=== PATIENT | female | born 1980 | race Caucasian/White ===

== ENCOUNTER 2017-03-08 23:40 | Emergency (ER) | payer MEDICARE, OTHER ==
[2017-03-08 23:49] VITALS: RESP 18
--- NOTE | 2017-03-09 00:34 | XR ---
ADDENDUM - Added by Veirto Méndez MD on 03/09/2017 12:35 AM (-07:00) COMPARISON: 02/01/2015 EXAM: XR Left Ankle Complete, 3 or More Views CLINICAL HISTORY: Reason: Pain TECHNIQUE: Frontal, lateral and oblique views of the left ankle. COMPARISON: No relevant prior studies available. FINDINGS: Bones/joints: No acute fracture or malalignment. Plantar calcaneal osteophyte. Soft tissues: Diffuse soft tissue edema. IMPRESSION: No acute fracture or malalignment.
--- NOTE | 2017-03-09 00:35 | XR ---
EXAM: XR Left Foot Complete, 3 or More Views CLINICAL HISTORY: Reason: Pain TECHNIQUE: Frontal, lateral and oblique views of the left foot. COMPARISON: No relevant prior studies available. FINDINGS: Bones/joints: No acute fracture or malalignment. Plantar calcaneal osteophyte. Soft tissues: Unremarkable. No radiopaque foreign body. IMPRESSION: No acute fracture or malalignment.
--- NOTE | 2017-03-09 00:47 | US ---
EXAM: US Duplex Left Lower Extremity Veins CLINICAL HISTORY: Left lower extremity edema TECHNIQUE: Real-time ultrasound scan of the veins of the left lower extremity with color Doppler flow, spectral waveform analysis and compression. COMPARISON: No relevant prior studies available. FINDINGS: Deep veins: Unremarkable. Normal compression is demonstrated from the common femoral to the popliteal vein. There is normal response to augmentation. Superficial veins: Unremarkable as visualized. Soft tissues: No acute findings. IMPRESSION: No evidence of deep venous thrombosis in the left lower extremity.
[2017-03-09 01:09] VITALS: BP 115/55; PULSE 76; TEMP 98.2
--- NOTE | 2017-03-09 01:30 | ED ---
Lower Extremity Injury HPI - General Chief Complaint: Extremity Injury, Lower Stated Complaint: foot pain Time Seen by Provider: 03/08/17 23:59 Source: patient, RN notes reviewed, old records reviewed Mode of arrival: wheelchair Limitations: no limitations - History of Present Illness Initial Comments: This is 36 year old female with CC of left foot swelling. She denies any injury. She reports that she has no history of blood clots, she is a smoker. Denies fever, chills, redness to the leg. She reports she is sedentary. Denies any peripheral paresthesias. - Related Data Home Medications Medication Instructions Recorded Confirmed Ibuprofen [Motrin] 800 mg PO Q8H PRN 08/05/16 08/05/16 Previous Rx's Medication Instructions Recorded Ibuprofen [Motrin] 600 mg PO Q8HR PRN #20 tab 03/09/17 Allergies Allergy/AdvReac Type Severity Reaction Status Date / Time Iodinated Contrast Media - Allergy Rash/Hives Verified 03/08/17 23:49 Oral and [Iodinated Contrast Media - IV Dye] iodine Allergy Rash/Hives Verified 03/08/17 23:49 Iodine and Iodide Containing Allergy Rash/Hives Verified 03/08/17 23:49 Produc bupropion HCl AdvReac Unknown THOUGHTS Verified 03/08/17 23:49 [From Wellbutrin] OF KILLING SOMEONE hydromorphone HCl AdvReac Diarrhea Verified 03/08/17 23:49 [From Dilaudid] propoxyphene napsylate AdvReac Nausea & Verified 03/08/17 23:49 [From Darvocet-N] Vomiting steroids Allergy Rash/Hives Uncoded 03/08/17 23:49 Review of Systems ROS Statement: Those systems with pertinent positive or pertinent negative responses have been documented in the HPI. ROS Other: All systems not noted in ROS Statement are negative. Past Medical History Past Medical History: Asthma, Seizure Disorder Additional Past Medical History / Comment(s): kidney infections, chronic back pain , last seizure 1 week ago., migraines. History of Any Multi-Drug Resistant Organisms: MRSA Date of last positivie culture/infection: 1999,2013 MDRO Source:: right leg Past Surgical History: Section, Cholecystectomy, Tubal Ligation Additional Past Surgical History / Comment(s): ear surgerys (x15 left ear & 15 right ear), x2 Additional Past Anesthesia/Blood Transfusion Reaction / Comment(s): PT STATES DIFFICULTY WAKING UP. PTS FATHER ALSO HAS DIFFICULTY WAKING UP. Past Psychological History: Anxiety Smoking Status: Never smoker Past Alcohol Use History: None Reported Past Drug Use History: None Reported - Past Family History Mother Family Medical History: Cancer Additional Family Medical History / Comment(s): KIDNEY CANCER Father Family Medical History: CVA/TIA, Myocardial Infarction ([place]) General Exam - General Exam Comments Initial Comments: Well appearing 36 year old female, patient is morbidly obese. Limitations: no limitations General appearance: alert, in no apparent distress Head exam: Present: atraumatic, normocephalic, normal inspection Eye exam: Present: normal appearance, PERRL, EOMI. Absent: scleral icterus, conjunctival injection, periorbital swelling ENT exam: Present: normal exam, mucous membranes moist Neck exam: Present: normal inspection. Absent: tenderness, meningismus, lymphadenopathy Respiratory exam: Present: normal lung sounds bilaterally. Absent: respiratory distress, wheezes, rales, rhonchi, stridor Cardiovascular Exam: Present: regular rate, normal rhythm, normal heart sounds. Absent: systolic murmur, diastolic murmur, rubs, gallop, clicks GI/Abdominal exam: Present: soft, normal bowel sounds. Absent: distended, tenderness, guarding, rebound, rigid Extremities exam: Present: normal inspection, full ROM, normal capillary refill. Absent: tenderness, pedal edema, joint swelling, calf tenderness Back exam: Present: normal inspection Neurological exam: Present: alert, oriented X3, CN II-XII intact Psychiatric exam: Present: normal affect, normal mood Skin exam: Present: warm, dry, intact, normal color. Absent: rash Course Vital Signs 03/08/17 03/09/17 23:46 01:08 Temperature 97.1 F L 98.2 F Pulse Rate 81 76 Respiratory 18 18 Rate Blood Pressure 132/73 115/55 O2 Sat by Pulse 100 99 Oximetry Medical Decision Making - Medical Decision Making This is 36 year old female with CC of left foot swelling. She denies any injury. She reports that she has no history of blood clots, she is a smoker. Denies fever, chills, redness to the leg. She reports she is sedentary. Denies any peripheral paresthesias. Doppler US negative for blood clots, Xrays are negative. discussed using an EVGENY wrap and elevating extremity. Patient agrees to treatment plan and will comply. - Radiology Data Radiology results: report reviewed Doppler US negative for acute process. PAtient xrays are negative. Disposition Clinical Impression: Foot swelling, Left ankle pain Disposition: HOME SELF-CARE Condition: Good Instructions: Ankle Sprain (ED) Additional Instructions: Patient has rest, ice, and elevate extremity. Return to the emergency department if any alarming signs or symptoms occur. Wear the Evgeny wrap for the next few days. Prescriptions: Ibuprofen [Motrin] 600 mg PO Q8HR PRN #20 tab PRN Reason: Pain Referrals: Mat Eckert Jr, [Primary Care Provider] - 1-2 days Time of Disposition: 01:29
== END 2017-03-09 01:52 | disposition home or self-care (01) ==
LOC: EC 23:40
DX: M25.572 Pain in left ankle and joints of left foot (principal); M79.89 Other specified soft tissue disorders; Z88.5 Allergy status to narcotic agent; Z88.8 Allergy status to other drugs, medicaments and biological substances; Z91.041 Radiographic dye allergy status; Z91.048 Other nonmedicinal substance allergy status
CPT/HCPCS: 99284

== ENCOUNTER 2017-03-21 21:15 | Emergency (ER) | payer MEDICARE, OTHER ==
[2017-03-21 21:31] VITALS: BP 139/73; PULSE 68; RESP 18; TEMP 98.2
--- NOTE | 2017-03-21 23:01 | XR ---
Exam: XR LEFT SHOULDER History: Pain. No known injury. Comparison: None provided. Technique: 3 views of the left shoulder. Findings: No acute displaced fracture. Suggestion of minimal inferior subluxation on internal rotation radiograph which reduces on external rotation. This may be due to differences in technique/positioning. Potentially, may be due to mild underlying ligamentous laxity. No enoc dislocation appreciated. Acromioclavicular joint space is within normal limits. No lateral or anterior downsloping of the acromion. Type II acromion seen. No soft tissue calcifications or erosive changes. Impression: No acute fracture. Mild subluxation on internal rotation radiograph only. May be due to technical factors. Could be seen with ligamentous laxity.
--- NOTE | 2017-03-21 23:11 | ED ---
Upper Extremity HPI - General Chief Complaint: Extremity Injury, Upper Stated Complaint: L shoulder pain Time Seen by Provider: 03/21/17 21:49 Source: patient Mode of arrival: ambulatory Limitations: no limitations - History of Present Illness Initial Comments: Patient is a 36-year-old female presenting to the emergency department with complaints of left shoulder pain onset 2 days ago. Patient denies injury or trauma to left shoulder. MD Complaint: Injury to:: left, shoulder Onset/Timin -: days(s) Other Injuries: none Handedness: right Severity scale (1-10): 8 Improves With: immobilization Worsens With: movement of extremity Context: other (Unknown) Associated Symptoms: denies other symptoms Treatments Prior to Arrival: cold therapy, NSAIDS - Related Data Home Medications Medication Instructions Recorded Confirmed HYDROcodone/APAP 7.5-325MG [[place] 1 tab PO TID 03/21/17 03/21/17 7.5-325] Allergies Allergy/AdvReac Type Severity Reaction Status Date / Time Iodinated Contrast Media - Allergy Rash/Hives Verified 03/21/17 21:31 Oral and [Iodinated Contrast Media - IV Dye] iodine Allergy Rash/Hives Verified 03/21/17 21:31 Iodine and Iodide Containing Allergy Rash/Hives Verified 03/21/17 21:31 Produc bupropion HCl AdvReac Unknown Homicidal Verified 03/21/17 21:41 [From Wellbutrin] Ideation hydromorphone HCl AdvReac Diarrhea Verified 03/21/17 21:31 [From Dilaudid] propoxyphene napsylate AdvReac Nausea & Verified 03/21/17 21:31 [From Darvocet-N] Vomiting steroids Allergy Rash/Hives Uncoded 03/21/17 21:31 Review of Systems ROS Statement: Those systems with pertinent positive or pertinent negative responses have been documented in the HPI. ROS Other: All systems not noted in ROS Statement are negative. Past Medical History Past Medical History: Asthma, Seizure Disorder Additional Past Medical History / Comment(s): kidney infections, chronic back pain , last seizure 1 week ago., migraines. History of Any Multi-Drug Resistant Organisms: MRSA Date of last positivie culture/infection: 1999,2013 MDRO Source:: right leg Past Surgical History: Section, Cholecystectomy, Tubal Ligation Additional Past Surgical History / Comment(s): ear surgerys (x15 left ear & 15 right ear), x2 Additional Past Anesthesia/Blood Transfusion Reaction / Comment(s): PT STATES DIFFICULTY WAKING UP. PTS FATHER ALSO HAS DIFFICULTY WAKING UP. Past Psychological History: Anxiety Smoking Status: Never smoker Past Alcohol Use History: None Reported Past Drug Use History: None Reported - Past Family History Mother Family Medical History: Cancer Additional Family Medical History / Comment(s): KIDNEY CANCER Father Family Medical History: CVA/TIA, Myocardial Infarction ([place]) General Exam Limitations: no limitations General appearance: alert, in no apparent distress Head exam: Present: atraumatic, normocephalic, normal inspection Eye exam: Present: normal appearance, PERRL, EOMI. Absent: scleral icterus, conjunctival injection, periorbital swelling, periorbital tenderness ENT exam: Present: normal exam, mucous membranes moist, normal external ear exam Neck exam: Present: normal inspection, full ROM. Absent: tenderness, meningismus, lymphadenopathy Respiratory exam: Present: normal lung sounds bilaterally. Absent: respiratory distress, wheezes, rales, rhonchi, stridor Cardiovascular Exam: Present: regular rate, normal rhythm, normal heart sounds. Absent: systolic murmur GI/Abdominal exam: Present: soft, normal bowel sounds. Absent: tenderness Left Shoulder Exam: Present: tenderness, tenderness over AC joint, other. Absent: full ROM, swelling, ecchymosis, deformity, dislocation Upper Arm exam: Present: normal inspection, full ROM. Absent: tenderness, swelling Elbow exam: Present: normal inspection, full ROM. Absent: tenderness, swelling Forearm Wrist exam: Present: normal inspection, full ROM. Absent: tenderness, swelling Hand Wrist exam: Present: normal inspection, full ROM. Absent: tenderness, swelling Neuro motor exam: Present: wrist extension intact, thumb opposition intact, thumb IP flexion intact, thumb adduction intact, fingers 2-5 abduction intact Neurosensory exam: Present: 2-point discrimination, radial nerve intact, ulnar nerve intact, median nerve intact Vascular: Present: normal capillary refill, radial pulse, brachial pulse, ulnar pulse. Absent: vascular compromise Back exam: Present: normal inspection. Absent: vertebral tenderness Neurological exam: Present: alert, oriented X3, other (No focal deficits noted) Psychiatric exam: Present: normal affect, normal mood Skin exam: Present: warm, dry, intact, normal color Course Vital Signs 03/21/17 21:30 Temperature 98.2 F Pulse Rate 68 Respiratory 18 Rate Blood Pressure 139/73 O2 Sat by Pulse 100 Oximetry Medical Decision Making - Medical Decision Making Left shoulder pain. Mild subluxation on internal rotation radiograph. Patient placed in a shoulder sling and instructed to follow[facility]up with [facility]. Patient instructed to continue Tylenol or Motrin for pain. Patient agrees with treatment plan. Discharge instructions and return parameters reviewed. - Radiology Data Radiology results: report reviewed X-ray left shoulder: No acute fracture. Mild subluxation on internal rotation radiograph only. May be due to technical factors. Could be seen in the ligamentous laxity. As read by radiologist Dr. Mcclure. Disposition Clinical Impression: Subluxation of shoulder joint Disposition: HOME SELF-CARE Condition: Good Instructions: Shoulder Pain (ED) Additional Instructions: Use shoulder sling when ambulating only. Continue Tylenol or Motrin for pain. Follow-up with orthopedic service. Please return to the emergency department with any new or worsening symptoms. Referrals: Mat Eckert Jr, DO [Primary Care Provider] - 1-2 days Willam Alexnader MD [STAFF PHYSICIAN] - 1-2 days Time of Disposition: 23:21
== END 2017-03-21 23:34 | disposition home or self-care (01) ==
LOC: EC 21:15
DX: S43.032A Inferior subluxation of left humerus, initial encounter (principal); Z79.891 Long term (current) use of opiate analgesic; Z91.041 Radiographic dye allergy status; Z88.5 Allergy status to narcotic agent; Z88.8 Allergy status to other drugs, medicaments and biological substances; X58.XXXA Exposure to other specified factors, initial encounter
CPT/HCPCS: 99283

== ENCOUNTER 2017-05-24 12:11 | Emergency (ER) | payer MEDICARE, OTHER ==
[2017-05-24 12:26] VITALS: BP 161/94; PULSE 74; RESP 18; TEMP 98.4
--- NOTE | 2017-05-24 12:41 | ED ---
ENT HPI - General Chief complaint: ENT Stated complaint: Dizziness Time Seen by Provider: 05/24/17 12:34 Source: patient Mode of arrival: ambulatory Limitations: no limitations - History of Present Illness Initial comments: 36-year-old female patient presented to emergency department today for complaints of left lower dental pain. Patient states that the pain started 3 days ago and has started to radiate into her left ear. Patient states that last night she did have an episode of dizziness and chills. Patient states that her temperature was elevated. Patient states that she has been taking [place] 7. 5/325 as well as ibuprofen for pain control. Patient states that she has chronic dental issues and has had symptoms similar to this in the past. Patient has been getting headaches with this as well. She denies any visual disturbance, chest pain, shortness of breath, palpitations, abdominal pain, nausea, or vomiting. Denies any issues with urination or bowel movements. She denies any difficulty swallowing or difficulty opening her mouth. Patient states that she does have an appointment with a dentist on Tuesday however was concerned that she needed an antibiotic prior to seeing them. - Related Data Home Medications Medication Instructions Recorded Confirmed HYDROcodone/APAP 7.5-325MG [[place] 1 tab PO TID 03/21/17 03/21/17 7.5-325] Previous Rx's Medication Instructions Recorded Penicillin V Potassium [Pen Vee K] 500 mg PO QID #40 tab 05/24/17 Allergies Allergy/AdvReac Type Severity Reaction Status Date / Time Iodinated Contrast- Oral and Allergy Rash/Hives Verified 05/24/17 12:26 IV Dye [Iodinated Contrast Media - IV Dye] iodine Allergy Rash/Hives Verified 05/24/17 12:26 Iodine and Iodide Containing Allergy Rash/Hives Verified 05/24/17 12:26 Produc bupropion HCl AdvReac Unknown Homicidal Verified 05/24/17 12:26 [From Wellbutrin] Ideation hydromorphone HCl AdvReac Diarrhea Verified 05/24/17 12:26 [From Dilaudid] propoxyphene napsylate AdvReac Nausea & Verified 05/24/17 12:26 [From Darvocet-N] Vomiting steroids Allergy Rash/Hives Uncoded 05/24/17 12:26 Review of Systems ROS Statement: Those systems with pertinent positive or pertinent negative responses have been documented in the HPI. ROS Other: All systems not noted in ROS Statement are negative. Past Medical History Past Medical History: Asthma, Seizure Disorder Additional Past Medical History / Comment(s): kidney infections, chronic back pain, migraines. History of Any Multi-Drug Resistant Organisms: MRSA Date of last positivie culture/infection: MDRO Source:: right leg Past Surgical History: Section, Cholecystectomy, Tubal Ligation Additional Past Surgical History / Comment(s): ear surgerys (x15 left ear & 15 right ear), x2 Additional Past Anesthesia/Blood Transfusion Reaction / Comment(s): PT STATES DIFFICULTY WAKING UP. PTS FATHER ALSO HAS DIFFICULTY WAKING UP. Past Psychological History: Anxiety Smoking Status: Never smoker Past Alcohol Use History: None Reported Past Drug Use History: None Reported - Past Family History Mother Family Medical History: Cancer Additional Family Medical History / Comment(s): KIDNEY CANCER Father Family Medical History: CVA/TIA, Myocardial Infarction ([place]) General Exam Limitations: no limitations General appearance: alert, in no apparent distress Eye exam: Present: normal appearance, PERRL, EOMI. Absent: scleral icterus, conjunctival injection, periorbital swelling ENT exam: Present: normal exam, normal oropharynx, mucous membranes moist, TM's normal bilaterally, other (Very poor dentition, multiple fractured teeth, multiple dental caries. Gingival erythema noted, no area of drainable abscess.) Neck exam: Present: normal inspection. Absent: tenderness, meningismus, lymphadenopathy Respiratory exam: Present: normal lung sounds bilaterally. Absent: respiratory distress, wheezes, rales, rhonchi, stridor Cardiovascular Exam: Present: regular rate, normal rhythm, normal heart sounds. Absent: systolic murmur, diastolic murmur, rubs, gallop, clicks GI/Abdominal exam: Present: soft, normal bowel sounds. Absent: distended, tenderness, guarding, rebound, rigid Extremities exam: Present: normal inspection, full ROM, normal capillary refill. Absent: tenderness, pedal edema, joint swelling, calf tenderness Back exam: Present: normal inspection Neurological exam: Present: alert, oriented X3, CN II-XII intact Psychiatric exam: Present: normal affect, normal mood Skin exam: Present: warm, dry, intact, normal color. Absent: rash Course Vital Signs 05/24/17 12:24 Temperature 98.4 F Pulse Rate 74 Respiratory 18 Rate Blood Pressure 161/94 O2 Sat by Pulse 100 Oximetry Medical Decision Making - Medical Decision Making 36-year-old female patient presented for evaluation of left lower dental pain and ear pain. Physical exam did reveal very poor dentition however no area of drainable abscess. Physical exam was otherwise unremarkable. Patient be discharged home with a prescription for penicillin, and instructed to take her home pain medications for pain control. Patient instructed to keep her appointment with the dentist on Tuesday. Patient instructed to return here immediately for any new, worsening, or concerning symptoms. Patient verbalizes understanding and agrees with this plan. Disposition Clinical Impression: Pain, dental, Dental caries Disposition: HOME SELF-CARE Condition: Good Instructions: Toothache (ED) Additional Instructions: Continue to take home pain medication as directed. Complete antibiotic prescription in full. Keep appointment with dentist on Tuesday. Return immediately for any new, worsening, or concerning symptoms. Prescriptions: Penicillin V Potassium [Pen Vee K] 500 mg PO QID #40 tab Referrals: Mat Eckert Jr, DO [Primary Care Provider] - 1-2 days Time of Disposition: 12:41
== END 2017-05-24 13:03 | disposition home or self-care (01) ==
LOC: EC 12:11
DX: K02.9 Dental caries, unspecified (principal); K08.89 Other specified disorders of teeth and supporting structures; R42 Dizziness and giddiness; R51 Headache; S02.5XXA Fracture of tooth (traumatic), initial encounter for closed fracture; Z79.899 Other long term (current) drug therapy; Z86.14 Personal history of Methicillin resistant Staphylococcus aureus infection; Z88.5 Allergy status to narcotic agent; Z88.8 Allergy status to other drugs, medicaments and biological substances; Z91.041 Radiographic dye allergy status
CPT/HCPCS: 99283

== ENCOUNTER 2017-12-24 15:24 | Observation (INO) | payer MEDICARE, OTHER ==
[2017-12-24] MEDS ORDERED: SODIUM CHLORIDE 0.9% 1,000 ML IV STA (15:50)
[2017-12-24] MEDS ORDERED: SODIUM CHLORIDE 0.9% 500 ML IV STA (15:50)
--- NOTE | 2017-12-24 15:58 | ED ---
Neuro HPI - General Chief Complaint: Neuro Symptoms/Deficit Stated Complaint: Lt sided numbness Time Seen by Provider: 12/24/17 15:40 Source: patient Mode of arrival: wheelchair Limitations: no limitations - History of Present Illness Is the patient presenting with stroke symptoms?: No Initial Comments: 37 years old female complains about left-sided weakness for last 3 days, she seen Dr. Kole Dunlap neurologist 3 days ago she was advised to come in to be evaluated for stroke she said she was busy taking care of her dad now complaining about the headache and the neck pain she denies any trauma or any fall also complaining about the chest pain ongoing for a few days as well, left sided weakness is ongoing for months and she feels is getting worse no abdominal pain no frequency urgency dysuria - Related Data Home Medications: Home Medications Medication Instructions Recorded Confirmed HYDROcodone/APAP 10-325MG [[place] 1 tab PO TID 12/24/17 12/24/17 10-325] Ibuprofen [Motrin] 800 mg PO Q6H PRN 12/24/17 12/24/17 Allergies/Adverse Reactions: Allergies Allergy/AdvReac Type Severity Reaction Status Date / Time Iodinated Contrast- Oral and Allergy Rash/Hives Verified 12/24/17 15:57 IV Dye [Iodinated Contrast Media - IV Dye] iodine Allergy Rash/Hives Verified 12/24/17 15:57 Iodine and Iodide Containing Allergy Rash/Hives Verified 12/24/17 15:57 Produc bupropion HCl AdvReac Unknown Homicidal Verified 12/24/17 15:57 [From Wellbutrin] Ideation hydromorphone HCl AdvReac Diarrhea Verified 12/24/17 15:57 [From Dilaudid] propoxyphene napsylate AdvReac Nausea & Verified 12/24/17 15:57 [From Darvocet-N] Vomiting steroids Allergy Rash/Hives Uncoded 12/24/17 15:32 Review of Systems ROS Statement: Those systems with pertinent positive or pertinent negative responses have been documented in the HPI. ROS Other: All systems not noted in ROS Statement are negative. General Exam - General Exam Comments Initial Comments: General: The patient is awake and alert, in no distress, and does not appear acutely ill. GCS is 15 Skin: Skin is warm and dry and no rashes or lesions are noted. Eye: Pupils are equal, round and reactive to light, extra-ocular movements are intact; there is normal conjunctiva bilaterally. Ears, nose, mouth and throat: There are moist mucous membranes and no oral lesions. Neck: The neck is supple, there is no tenderness or JVD. Cardiovascular: There is a regular rate and rhythm. No murmur, rub or gallop is appreciated. Respiratory: To auscultation bilateral, no wheezing no rhonchi no distress respiratory guo noticed Gastrointestinal: Soft, non-distended, non-tender abdomen without masses or organomegaly noted. There is no rebound or guarding present. Bowel sounds are unremarkable. Back: There is no tenderness to palpation in the midline. There is no obvious deformity. Musculoskeletal: Normal ROM, no tenderness, There is no pedal edema. There is no calf tenderness or swelling. No cords were appreciated. Neurological: CN II-XII intact, Cranial nerves III through XII are intact. Noticed decreased strength in her left upper extremity, sensory functions are intact deep tendon reflexes are within normal range Psychiatric: Cooperative, appropriate mood & affect, normal judgment. Limitations: no limitations Stroke MDM - Lab Data Result diagrams: 12/24/17 15:45 12/24/17 15:45 Lab Results 12/24/17 12/24/17 12/24/17 Range/Units 15:45 15:45 15:45 WBC 9.9 (3.8-10.6) k/uL RBC 4.94 (3.80-5.40) m/uL Hgb 13.5 (11.4-16.0) gm/dL Hct 39.7 (34.0-46.0) % MCV 80.4 (80.0-100.0) fL MCH 27.3 (25.0-35.0) pg MCHC 33.9 (31.0-37.0) g/dL RDW 13.3 (11.5-15.5) % Plt Count 336 (150-450) k/uL Neutrophils % 70 % Lymphocytes % 20 % Monocytes % 5 % Eosinophils % 3 % Basophils % 0 % Neutrophils # 6.9 (1.3-7.7) k/uL Lymphocytes # 2.0 (1.0-4.8) k/uL Monocytes # 0.5 (0-1.0) k/uL Eosinophils # 0.3 (0-0.7) k/uL Basophils # 0.0 (0-0.2) k/uL PT (9.0-12.0) sec INR (<1.2) APTT (22.0-30.0) sec Sodium 141 (137-145) mmol/L Potassium 4.1 (3.5-5.1) mmol/L Chloride 103 (98-107) mmol/L Carbon Dioxide 27 (22-30) mmol/L Anion Gap 11 mmol/L BUN 14 (7-17) mg/dL Creatinine 0.74 (0.52-1.04) mg/dL Est GFR (CKD-EPI)AfAm >90 (>60 ml/min/1.73 sqM) Est GFR (CKD-EPI)NonAf >90 (>60 ml/min/1.73 sqM) Glucose 98 (74-99) mg/dL Calcium 9.3 (8.4-10.2) mg/dL Total Bilirubin 0.1 L (0.2-1.3) mg/dL AST 16 (14-36) U/L ALT 20 (9-52) U/L Alkaline Phosphatase 52 (38-126) U/L Total Creatine Kinase 40 (30-135) U/L CK-MB (CK-2) 0.4 (0.0-2.4) ng/mL CK-MB (CK-2) Rel Index 1.0 Troponin I <0.012 (0.000-0.034) ng/mL Total Protein 6.6 (6.3-8.2) g/dL Albumin 3.8 (3.5-5.0) g/dL 12/24/17 Range/Units 15:45 WBC (3.8-10.6) k/uL RBC (3.80-5.40) m/uL Hgb (11.4-16.0) gm/dL Hct (34.0-46.0) % MCV (80.0-100.0) fL MCH (25.0-35.0) pg MCHC (31.0-37.0) g/dL RDW (11.5-15.5) % Plt Count (150-450) k/uL Neutrophils % % Lymphocytes % % Monocytes % % Eosinophils % % Basophils % % Neutrophils # (1.3-7.7) k/uL Lymphocytes # (1.0-4.8) k/uL Monocytes # (0-1.0) k/uL Eosinophils # (0-0.7) k/uL Basophils # (0-0.2) k/uL PT 9.7 (9.0-12.0) sec INR 1.0 (<1.2) APTT 23.8 (22.0-30.0) sec Sodium (137-145) mmol/L Potassium (3.5-5.1) mmol/L Chloride (98-107) mmol/L Carbon Dioxide (22-30) mmol/L Anion Gap mmol/L BUN (7-17) mg/dL Creatinine (0.52-1.04) mg/dL Est GFR (CKD-EPI)AfAm (>60 ml/min/1.73 sqM) Est GFR (CKD-EPI)NonAf (>60 ml/min/1.73 sqM) Glucose (74-99) mg/dL Calcium (8.4-10.2) mg/dL Total Bilirubin (0.2-1.3) mg/dL AST (14-36) U/L ALT (9-52) U/L Alkaline Phosphatase (38-126) U/L Total Creatine Kinase (30-135) U/L CK-MB (CK-2) (0.0-2.4) ng/mL CK-MB (CK-2) Rel Index Troponin I (0.000-0.034) ng/mL Total Protein (6.3-8.2) g/dL Albumin (3.5-5.0) g/dL Past Medical History Past Medical History: Asthma, Seizure Disorder Additional Past Medical History / Comment(s): kidney infections, chronic back pain, migraines. History of Any Multi-Drug Resistant Organisms: MRSA Date of last positivie culture/infection: 1999,2013 MDRO Source:: right leg Past Surgical History: Section, Cholecystectomy, Tubal Ligation Additional Past Surgical History / Comment(s): ear surgerys (x15 left ear & 15 right ear), x2 Additional Past Anesthesia/Blood Transfusion Reaction / Comment(s): PT STATES DIFFICULTY WAKING UP. PTS FATHER ALSO HAS DIFFICULTY WAKING UP. Past Psychological History: Anxiety Smoking Status: Never smoker Past Alcohol Use History: None Reported Past Drug Use History: None Reported - Past Family History Mother Family Medical History: Cancer Additional Family Medical History / Comment(s): KIDNEY CANCER Father Family Medical History: CVA/TIA, Myocardial Infarction ([place]) Course Vital Signs 12/24/17 15:30 Temperature 98.3 F Pulse Rate 77 Respiratory 18 Rate Blood Pressure 130/68 O2 Sat by Pulse 98 Oximetry EKG is a normal sinus rhythm medical rate is 83 WV interval is 154 QRS duration is 92 QT/QTc is 376/441 and 50 mL EKG reveals T-wave inversion on lead 3 and T wave flattening in aVF no ST elevation or ST depression noticed any other lites Disposition Clinical Impression: Left-sided weakness, Headache Disposition: ADMITTED IP TO THIS HOSP Referrals: Mat Eckert Jr, DO [Primary Care Provider] - 1-2 days
[2017-12-24 16:14] LABS: ALT 20 U/L (9-52); AST 16 U/L (14-36); Albumin 3.8 g/dL (3.5-5.0); Alkaline Phosphatase 52 U/L (38-126); Anion Gap 11 mmol/L; Blood Urea Nitrogen 14 mg/dL (7-17); Calcium 9.3 mg/dL (8.4-10.2); Carbon Dioxide 27 mmol/L (22-30); Chloride 103 mmol/L (98-107); Glucose 98 mg/dL (74-99); Potassium 4.1 mmol/L (3.5-5.1); Sodium 141 mmol/L (137-145); Total Bilirubin 0.1 mg/dL (0.2-1.3); Total Protein 6.6 g/dL (6.3-8.2)
[2017-12-24 16:16] LABS: Partial Thromboplastin Time 23.8 sec (22.0-30.0); Prothrombin Time 9.7 sec (9.0-12.0)
[2017-12-24 16:26] LABS: Creatine Kinase 40 U/L (30-135)
[2017-12-24 16:35] LABS: Basophils % (A) 0 %; Eosinophils # (A) 0.3 k/uL (0-0.7); Eosinophils % (A) 3 %; HCT 39.7 % (34.0-46.0); HGB 13.5 gm/dL (11.4-16.0); Lymphocytes % (A) 20 %; MCH 27.3 pg (25.0-35.0); MCHC 33.9 g/dL (31.0-37.0); MCV 80.4 fL (80.0-100.0); Mean Platelet Volume 7.5; Monocytes # (A) 0.5 k/uL (0-1.0); Monocytes % (A) 5 %; Neutrophils # (A) 6.9 k/uL (1.3-7.7); Neutrophils % (A) 70 %; Platelet Count 336 k/uL (150-450); RBC 4.94 m/uL (3.80-5.40); RDW 13.3 % (11.5-15.5); WBC 9.9 k/uL (3.8-10.6)
[2017-12-24 16:38] LABS: Creatine Kinase MB 0.4 ng/mL (0.0-2.4); Troponin I <0.012 ng/mL (0.000-0.034)
[2017-12-24] MEDS ORDERED: NALOXONE 0.4 MG/ML 1 ML VIAL IV PRN (17:03)
[2017-12-24] MEDS ORDERED: IBUPROFEN 800 MG TAB PO PRN (17:12)
[2017-12-24] MEDS ORDERED: methylPREDNISolone SOD SUCCI 125 MG/2 ML VIAL IV STA (17:15)
[2017-12-24] MEDS ORDERED: FAMOTIDINE 20 MG/2 ML VIAL IV STA (17:16)
[2017-12-24] MEDS ORDERED: diphenhydrAMINE 50 MG/ML 1 ML VIAL IVP STA (17:16)
[2017-12-24] MEDS ORDERED: RX INFO: IV CONTRAST WAS GIVEN 1 EACH MISC MISCELLANE PRN (17:16)
--- NOTE | 2017-12-24 19:25 | CT ---
EXAMINATION TYPE: CT angio head neck DATE OF EXAM: 12/24/2017 HISTORY: Patient complains of left side numbness. COMPARISON: NONE CT DLP: 1284.5 mGycm. Automated Exposure Control for Dose Reduction was Utilized. TECHNIQUE: CTA scan of the neck is performed without and with IV Contrast, patient injected with 60 mL of Isovue 370, axial images are obtained, coronal and sagittal reformatted images are reviewed. Th ree-D reconstructed images are created on an independent workstation and reviewed. FINDINGS: The noncontrast CT scan of the brain shows normal ventricles. There is no mass effect nor midline george ft. There is no sign of intracranial hemorrhage. There is normal branching pattern of the great vessels on the aortic arch. There is bilateral arteria l flow in the vertebral arteries which are fairly symmetric. There is bilateral arterial flow in the common internal and external carotid arteries. There is no evidence of dissection. Carotid bifurcatio n is widely patent. There is arterial flow in the vertebrobasilar artery system. Basilar artery fills from both sides. There is arterial flow in the anterior middle and posterior cerebral arteries. Posterior cerebral art eries fill from the basilar artery. I see no evidence of aneurysm or neovascularity. There is no mass effect. There is no evidence of arterial stenosis. There is normal contrast opacification of the venous sinuses. There is mild mucosal thickening in the ethmoid sinuses. CONCLUSION: Minimal ethmoid sinusitis. Negative CT angiogram of the neck. Negative CT angiogram of the brain.
--- NOTE | 2017-12-24 19:31 | XR ---
EXAMINATION TYPE: XR chest 2V DATE OF EXAM: 12/24/2017 COMPARISON: 08/05/2016 HISTORY: Slurred speech TECHNIQUE: Frontal and lateral views of the chest are obtained. FINDINGS: Heart and mediastinum are normal. Lungs are clear. Diaphragm is normal. Bony thorax appear s normal. IMPRESSION: Normal chest. No change.
--- NOTE | 2017-12-24 19:32 | XR ---
EXAMINATION TYPE: XR cervical spine comp DATE OF EXAM: 12/24/2017 COMPARISON: NONE HISTORY: Left-sided numbness TECHNIQUE: 5 views FINDINGS: Cervical vertebra have normal spacing and alignment. Posterior elements are intact. There a re no cervical ribs. Atlantoaxial facet joint is normal. IMPRESSION: Normal cervical spine
[2017-12-24 20:16] VITALS: BMI 45.6
[2017-12-24] MEDS: HYDROcodone/APAP 10-325MG 1 EACH TAB PO SCH (21:05)
--- NOTE | 2017-12-25 00:42 | CT ---
EXAMINATION TYPE: CT brain wo con DATE OF EXAM: 12/25/2017 COMPARISON: 08/05/2016 HISTORY: Prior on synapse, pt c/o left sided/numbness weakness for [address] DLP: 1064.30 mGycm. Automated Exposure Control for Dose Reduction was Utilized. TECHNIQUE: CT scan of the head is performed without contrast. FINDINGS: Ventricles of normal size. There is no mass effect nor midline shift. There is no sign of intracranial hemorrhage. The calvarium is intact. There is mild mucosal thickening in the ethmoid sin uses. CONCLUSION: Mild ethmoid sinusitis. Otherwise negative exam. No change.
[2017-12-25 05:16] VITALS: RESP 17
[2017-12-25] MEDS: HYDROcodone/APAP 10-325MG 1 EACH TAB PO SCH (08:34)
[2017-12-25 08:39] VITALS: BP 119/68; PULSE 84; TEMP 97.7
--- NOTE | 2017-12-25 10:27 | P.HPIM ---
History of Present Illness H&P Date: 12/25/17 Chief Complaint: Symptoms consistent with TIA Patient is a 37-year-old female known to my practice, with complaint of expressive aphasia, difficulty ambulating dizziness and nausea. Currently patient has no complaints is responding appropriately to questions ambulating well no numbness to extremes. And no fatigue Review of Systems Constitutional: Reports chronic headaches, Reports weakness Ears, nose, mouth and throat: Reports as per HPI Cardiovascular: Reports as per HPI Respiratory: Reports as per HPI Gastrointestinal: Reports as per HPI Genitourinary: Reports as per HPI Menstruation: Reports as per HPI Musculoskeletal: Reports as per HPI Integumentary: Reports as per HPI Neurological: Reports paresthesias, Reports transient paralysis, Reports weakness Psychiatric: Reports as per HPI Past Medical History Past Medical History: Asthma, Seizure Disorder Additional Past Medical History / Comment(s): kidney infections, chronic back pain, migraines, last seizure 6 months ago History of Any Multi-Drug Resistant Organisms: MRSA Date of last positivie culture/infection: MDRO Source:: right leg Past Surgical History: Section, Cholecystectomy, Tubal Ligation Additional Past Surgical History / Comment(s): ear surgerys (x15 left ear & 15 right ear), x2 Past Anesthesia/Blood Transfusion Reactions: No Reported Reaction Additional Past Anesthesia/Blood Transfusion Reaction / Comment(s): PT STATES DIFFICULTY WAKING UP. PTS FATHER ALSO HAS DIFFICULTY WAKING UP. Past Psychological History: Anxiety Smoking Status: Never smoker Past Alcohol Use History: None Reported Past Drug Use History: None Reported - Past Family History Mother Family Medical History: Cancer Additional Family Medical History / Comment(s): KIDNEY CANCER, in 2012 Father Family Medical History: CVA/TIA, Myocardial Infarction ([place]) Medications and Allergies Home Medications Medication Instructions Recorded Confirmed Type HYDROcodone/APAP 10-325MG [[place] 1 tab PO TID 12/24/17 12/24/17 History 10-325] Ibuprofen [Motrin] 800 mg PO Q6H PRN 12/24/17 12/24/17 History Allergies Allergy/AdvReac Type Severity Reaction Status Date / Time Iodinated Contrast- Oral and Allergy Rash/Hives Verified 12/24/17 15:57 IV Dye [Iodinated Contrast Media - IV Dye] iodine Allergy Rash/Hives Verified 12/24/17 15:57 Iodine and Iodide Containing Allergy Rash/Hives Verified 12/24/17 15:57 Produc bupropion HCl AdvReac Unknown Homicidal Verified 12/24/17 15:57 [From Wellbutrin] Ideation hydromorphone HCl AdvReac Diarrhea Verified 12/24/17 15:57 [From Dilaudid] propoxyphene napsylate AdvReac Nausea & Verified 12/24/17 15:57 [From Darvocet-N] Vomiting steroids Allergy Rash/Hives Uncoded 12/24/17 15:32 Physical Exam Osteopathic Statement: *. No significant issues noted on an osteopathic structural exam other than those noted in the History and Physical/Consult. Vitals: Vital Signs Temp Pulse Pulse Resp BP BP Pulse Ox 12/25/17 08:35 97.7 F 84 16 119/68 98 12/25/17 04:00 97.1 F L 83 17 128/77 96 12/25/17 00:00 97.2 F L 85 18 132/65 96 12/24/17 20:00 97.3 F L 76 16 113/63 95 12/24/17 19:41 98.1 F 12/24/17 19:19 82 18 139/65 98 12/24/17 18:24 88 18 141/68 100 12/24/17 17:17 75 18 125/60 100 12/24/17 15:30 98.3 F 77 18 130/68 98 Intake and Output 12/24/17 12/25/17 12/25/17 22:59 06:59 14:59 Other: Voiding Method Toilet Toilet Toilet # Voids 2 2 Weight 124.284 kg 127.6 kg General: [Patient awake, alert and oriented times 3. Patient in no acute distress.] HEENT: [PERRL. EOMI. No pharyngeal erythema or exudate.] Neck: [No adenopathy.] Cardiac: [Heart regular in rate and rhythm. No S3. No S4. No clicks, rubs. No murmur.] Lungs: [Clear to auscultation bilaterally.] Abdomen: [No mass. No organomegaly. Bowel sounds presnt and normoactive in all 4 quadrants.] Extremes: [No edema no cyanosis no claudication normal pulses] : [] Musculoskeletal: [No joint erythema, edema or tenderness.] Skin: [No rash.] Neurologic: [No lateralizing deficits. CN II - XII grossly intact.] Lymphatic: [No adenopathy.] Results CBC & Chem 7: 12/24/17 15:45 12/24/17 15:45 Labs: Abnormal Lab Results - Last 24 Hours (Table) 12/24/17 Range/Units 15:45 Total Bilirubin 0.1 L (0.2-1.3) mg/dL Thrombosis Risk Factor Assmnt - Choose All That Apply Each Factor Represents 1 point: Obesity (BMI >25) Thrombosis Risk Factor Assessment Total Risk Factor Score: 1 Thrombosis Risk Factor Assessment Level: Low Risk Assessment and Plan (1) Transient ischemic attack (TIA) Current Visit: Yes Status: Acute Code(s): G45.9 - TRANSIENT CEREBRAL ISCHEMIC ATTACK, UNSPECIFIED SNOMED Code(s): 489046364 (2) Headache Current Visit: Yes Status: Acute Code(s): R51 - HEADACHE SNOMED Code(s): 59362357 (3) Left-sided weakness Current Visit: Yes Status: Acute Code(s): R53.1 - WEAKNESS SNOMED Code(s) : 703553071 Plan: Symptoms have completely resolve We will discharge patient home on current meds including aspirin 325 mg We will reevaluate patient in office on Tuesday or Tuesday Time with Patient: Greater than 30
--- NOTE | 2017-12-25 10:29 | P.DS ---
Providers Date of admission: 12/24/17 17:03 Expected date of discharge: 12/25/17 Attending physician: Mat Eckert Consults: 12/24/17 17:03 Consult Physician Stat Consulting Provider: Tyrese Valdes Consult Reason/Comments: Left-sided weakness Do you want consulting provider notified?: Yes Primary care physician: Mat Eckert - Discharge Diagnosis(es) (1) Transient ischemic attack (TIA) Current Visit: Yes Status: Acute (2) Headache Current Visit: Yes Status: Acute (3) Left-sided weakness Current Visit: Yes Status: Acute Plan - Discharge Summary Discharge Rx Participant: No New Discharge Prescriptions: No Action HYDROcodone/APAP 10-325MG [[place] [facility] 10-325] 1 tab PO TID Ibuprofen [Motrin] 800 mg PO Q6H PRN PRN Reason: Pain Discharge Medication List HYDROcodone/APAP 10-325MG [[facility] 10-325] 1 tab PO TID 12/24/17 [History] Ibuprofen [Motrin] 800 mg PO Q6H PRN 12/24/17 [History] Follow up Appointment(s)/Referral(s): Mat Eckert Jr, [Primary Care Provider] - 1-2 days
== END 2017-12-25 10:53 | disposition home or self-care (01) ==
LOC: EC 15:24 → 6SEL 17:03
PROVIDERS: ADMIT Family Medicine; ATTEND Family Medicine
DX: G45.9 Transient cerebral ischemic attack, unspecified (principal); R51 Headache; R53.1 Weakness; R47.01 Aphasia; R26.2 Difficulty in walking, not elsewhere classified; R11.0 Nausea; R42 Dizziness and giddiness; M54.2 Cervicalgia; M54.9 Dorsalgia, unspecified; G89.29 Other chronic pain; E66.9 Obesity, unspecified; Z68.42 Body mass index [BMI] 45.0-49.9, adult; Z86.14 Personal history of Methicillin resistant Staphylococcus aureus infection; Z80.51 Family history of malignant neoplasm of kidney; Z82.49 Family history of ischemic heart disease and other diseases of the circulatory system; Z79.891 Long term (current) use of opiate analgesic; Z91.041 Radiographic dye allergy status; Z88.5 Allergy status to narcotic agent; Z88.8 Allergy status to other drugs, medicaments and biological substances; Z91.048 Other nonmedicinal substance allergy status
CPT/HCPCS: 96374; 96375 ×3; 99285; 36415; 93005; 80053; 82550; 82553; 84484 ×2; 85025; 85610; 85730; 72050; 71046; 70496; 70450; 70498; G0378 ×2; J1200; J2930; Q9967

== ENCOUNTER → 2018-01-05 | Outpatient (CLI) | payer MEDICARE, OTHER | END | disposition home or self-care (01) | LOC: RADUSWWP 15:40 | PROVIDERS: ATTEND Family Medicine | DX: Z53.9 Procedure and treatment not carried out, unspecified reason (principal) ==

== ENCOUNTER 2018-03-10 10:22 | Emergency (ER) | payer MEDICARE, OTHER ==
[2018-03-10 11:05] LABS: Basophils % (A) 0 %; Eosinophils # (A) 0.3 k/uL (0-0.7); Eosinophils % (A) 3 %; HGB 13.5 gm/dL (11.4-16.0); Lymphocytes # (A) 1.8 k/uL (1.0-4.8); Lymphocytes % (A) 17 %; MCH 26.8 pg (25.0-35.0); MCHC 32.8 g/dL (31.0-37.0); MCV 81.8 fL (80.0-100.0); Mean Platelet Volume 7.7; Monocytes # (A) 0.5 k/uL (0-1.0); Monocytes % (A) 5 %; Neutrophils # (A) 7.5 k/uL (1.3-7.7); Neutrophils % (A) 73 %; Platelet Count 284 k/uL (150-450); RBC 5.02 m/uL (3.80-5.40); RDW 13.9 % (11.5-15.5); WBC 10.2 k/uL (3.8-10.6)
[2018-03-10 11:18] LABS: ALT 28 U/L (9-52); AST 16 U/L (14-36); Albumin 3.5 g/dL (3.5-5.0); Alkaline Phosphatase 52 U/L (38-126); Anion Gap 9 mmol/L; Blood Urea Nitrogen 11 mg/dL (7-17); Calcium 8.4 mg/dL (8.4-10.2); Carbon Dioxide 26 mmol/L (22-30); Chloride 103 mmol/L (98-107); Glucose 108 mg/dL (74-99); Magnesium 1.9 mg/dL (1.6-2.3); Potassium 4.5 mmol/L (3.5-5.1); Sodium 138 mmol/L (137-145); Total Bilirubin 0.3 mg/dL (0.2-1.3); Total Protein 6.1 g/dL (6.3-8.2)
--- NOTE | 2018-03-10 11:24 | ED ---
General Adult HPI - General Chief complaint: Chest Pain Stated complaint: chest pain left side numbness Time Seen by Provider: 03/10/18 10:38 Source: patient, RN notes reviewed, old records reviewed Mode of arrival: wheelchair Limitations: no limitations - History of Present Illness Initial comments: 37l female presenting with 2 day history of left-sided chest pain and left arm numbness. Patient states she has a history of TIA and stroke and was told to come to the emergency department if she developed arm numbness. Her symptoms have been present for 2 days. She describes her chest pain is constant left- sided sharp chest pain. No difficulty breathing. No nausea vomiting. No abdominal pain. No diaphoresis. Denies any focal weakness. Denies headache. Denies vision changes. Patient has had symptoms the same as this in the past including both chest pain and left arm weakness. This is not an entirely new symptom for her. - Related Data Home Medications Medication Instructions Recorded Confirmed HYDROcodone/APAP 10-325MG [[place] 1 tab PO TID 12/24/17 03/10/18 10-325] Ibuprofen [Motrin] 800 mg PO Q6H PRN 12/24/17 03/10/18 Bisoprolol-Hctz 2.5-6.25 mg [[place] 1 each PO DAILY 03/10/18 03/10/18 2.5-6.25] Clopidogrel [Plavix] 75 mg PO DAILY 03/10/18 03/10/18 Allergies Allergy/AdvReac Type Severity Reaction Status Date / Time Iodinated Contrast- Oral and Allergy Rash/Hives Verified 03/10/18 11:44 IV Dye [Iodinated Contrast Media - IV Dye] iodine Allergy Rash/Hives Verified 03/10/18 11:44 Iodine and Iodide Containing Allergy Rash/Hives Verified 03/10/18 11:44 Produc bupropion HCl AdvReac Unknown Homicidal Verified 03/10/18 11:44 [From Wellbutrin] Ideation hydromorphone HCl AdvReac Diarrhea Verified 03/10/18 11:44 [From Dilaudid] propoxyphene napsylate AdvReac Nausea & Verified 03/10/18 11:44 [From Darvocet-N] Vomiting steroids Allergy Rash/Hives Uncoded 03/10/18 10:36 Review of Systems ROS Statement: Those systems with pertinent positive or pertinent negative responses have been documented in the HPI. ROS Other: All systems not noted in ROS Statement are negative. Past Medical History Past Medical History: Asthma, CVA/TIA, Seizure Disorder Additional Past Medical History / Comment(s): kidney infections, chronic back pain, migraines, last seizure 6 months ago History of Any Multi-Drug Resistant Organisms: MRSA Date of last positivie culture/infection: 1999,2013 MDRO Source:: right leg Past Surgical History: Section, Cholecystectomy, Tubal Ligation Additional Past Surgical History / Comment(s): ear surgerys (x15 left ear & 15 right ear), x2 Past Anesthesia/Blood Transfusion Reactions: No Reported Reaction Additional Past Anesthesia/Blood Transfusion Reaction / Comment(s): PT STATES DIFFICULTY WAKING UP. PTS FATHER ALSO HAS DIFFICULTY WAKING UP. Past Psychological History: Anxiety Smoking Status: Never smoker Past Alcohol Use History: None Reported Past Drug Use History: None Reported - Past Family History Mother Family Medical History: Cancer Additional Family Medical History / Comment(s): KIDNEY CANCER, in 2012 Father Family Medical History: CVA/TIA, Myocardial Infarction ([place]) General Exam Limitations: no limitations General appearance: alert, in no apparent distress Head exam: Present: atraumatic, normocephalic Eye exam: Present: normal appearance, PERRL, EOMI ENT exam: Present: normal exam Neck exam: Present: normal inspection. Absent: tenderness, meningismus Respiratory exam: Present: normal lung sounds bilaterally. Absent: respiratory distress, wheezes Cardiovascular Exam: Present: regular rate, normal rhythm GI/Abdominal exam: Present: soft, distended Extremities exam: Present: normal inspection, normal capillary refill. Absent: pedal edema Neurological exam: Present: alert, oriented X3, motor sensory deficit (Left arm numbness compared to the right, no weakness). Absent: CN II-XII intact Psychiatric exam: Present: normal affect, normal mood Skin exam: Present: warm, dry, intact. Absent: cyanosis, diaphoretic Course Vital Signs 03/10/18 03/10/18 10:33 11:59 Temperature 97.8 F Pulse Rate 72 77 Respiratory 18 18 Rate Blood Pressure 142/79 135/76 O2 Sat by Pulse 98 98 Oximetry EKG Findings - EKG Comments: EKG Findings:: EKG: Normal sinus rhythm, sinus arrhythmia, rate of 65, UT interval 136, QRS duration 90, QTC 420 no signs of ischemia Medical Decision Making - Medical Decision Making 37 yo female presenting with both chest pain and left arm numbness. These are both chronic issues. Given her remote history of TIA and CVA, head CT is obtained is negative for acute pathology. Symptoms have been present for greater than 2 days. Laboratory studies reveal normal CBC, normal CMP, negative troponin with regard to her chest pain, she has a nonischemic EKG and a negative troponin after 2 days of symptoms. Heart rate is 65, no concern for pulmonary embolism. Patient will be discharged with close outpatient follow-up. Regarding her numbness, as this is chronic she can continue aspirin and follow- up with her neurologist. - Lab Data Result diagrams: 03/10/18 10:45 03/10/18 10:45 Lab Results 03/10/18 03/10/18 03/10/18 Range/Units 10:45 10:45 10:45 WBC 10.2 (3.8-10.6) k/uL RBC 5.02 (3.80-5.40) m/uL Hgb 13.5 (11.4-16.0) gm/dL Hct 41.0 (34.0-46.0) % MCV 81.8 (80.0-100.0) fL MCH 26.8 (25.0-35.0) pg MCHC 32.8 (31.0-37.0) g/dL RDW 13.9 (11.5-15.5) % Plt Count 284 (150-450) k/uL Neutrophils % 73 % Lymphocytes % 17 % Monocytes % 5 % Eosinophils % 3 % Basophils % 0 % Neutrophils # 7.5 (1.3-7.7) k/uL Lymphocytes # 1.8 (1.0-4.8) k/uL Monocytes # 0.5 (0-1.0) k/uL Eosinophils # 0.3 (0-0.7) k/uL Basophils # 0.0 (0-0.2) k/uL PT (9.0-12.0) sec INR (<1.2) APTT (22.0-30.0) sec Sodium 138 (137-145) mmol/L Potassium 4.5 (3.5-5.1) mmol/L Chloride 103 (98-107) mmol/L Carbon Dioxide 26 (22-30) mmol/L Anion Gap 9 mmol/L BUN 11 (7-17) mg/dL Creatinine 0.60 (0.52-1.04) mg/dL Est GFR (CKD-EPI)AfAm >90 (>60 ml/min/1.73 sqM) Est GFR (CKD-EPI)NonAf >90 (>60 ml/min/1.73 sqM) Glucose 108 H (74-99) mg/dL Calcium 8.4 (8.4-10.2) mg/dL Magnesium 1.9 (1.6-2.3) mg/dL Total Bilirubin 0.3 (0.2-1.3) mg/dL AST 16 (14-36) U/L ALT 28 (9-52) U/L Alkaline Phosphatase 52 (38-126) U/L Total Creatine Kinase 30 (30-135) U/L CK-MB (CK-2) 0.3 (0.0-2.4) ng/mL CK-MB (CK-2) Rel Index 1.0 Troponin I <0.012 (0.000-0.034) ng/mL NT-Pro-B Natriuret Pep pg/mL Total Protein 6.1 L (6.3-8.2) g/dL Albumin 3.5 (3.5-5.0) g/dL Urine HCG, Qual (Not Detectd) 03/10/18 03/10/18 03/10/18 Range/Units 10:45 10:45 11:00 WBC (3.8-10.6) k/uL RBC (3.80-5.40) m/uL Hgb (11.4-16.0) gm/dL Hct (34.0-46.0) % MCV (80.0-100.0) fL MCH (25.0-35.0) pg MCHC (31.0-37.0) g/dL RDW (11.5-15.5) % Plt Count (150-450) k/uL Neutrophils % % Lymphocytes % % Monocytes % % Eosinophils % % Basophils % % Neutrophils # (1.3-7.7) k/uL Lymphocytes # (1.0-4.8) k/uL Monocytes # (0-1.0) k/uL Eosinophils # (0-0.7) k/uL Basophils # (0-0.2) k/uL PT 9.5 (9.0-12.0) sec INR 1.0 (<1.2) APTT 23.4 (22.0-30.0) sec Sodium (137-145) mmol/L Potassium (3.5-5.1) mmol/L Chloride (98-107) mmol/L Carbon Dioxide (22-30) mmol/L Anion Gap mmol/L BUN (7-17) mg/dL Creatinine (0.52-1.04) mg/dL Est GFR (CKD-EPI)AfAm (>60 ml/min/1.73 sqM) Est GFR (CKD-EPI)NonAf (>60 ml/min/1.73 sqM) Glucose (74-99) mg/dL Calcium (8.4-10.2) mg/dL Magnesium (1.6-2.3) mg/dL Total Bilirubin (0.2-1.3) mg/dL AST (14-36) U/L ALT (9-52) U/L Alkaline Phosphatase (38-126) U/L Total Creatine Kinase (30-135) U/L CK-MB (CK-2) (0.0-2.4) ng/mL CK-MB (CK-2) Rel Index Troponin I (0.000-0.034) ng/mL NT-Pro-B Natriuret Pep 35 pg/mL Total Protein (6.3-8.2) g/dL Albumin (3.5-5.0) g/dL Urine HCG, Qual Not Detected (Not Detectd) Disposition Clinical Impression: Chronic pain syndrome, Chest pain Disposition: HOME SELF-CARE Condition: Fair Instructions: Chest Pain (ED) Is patient prescribed a controlled substance at d/c from ED?: No Referrals: Alfredo Mckeon MD [Primary Care Provider] - 1-2 days Time of Disposition: 12:11
--- NOTE | 2018-03-10 11:28 | XR ---
EXAMINATION TYPE: XR chest 2V DATE OF EXAM: 03/10/2018 COMPARISON: Prior chest x-ray 12/24/2017 HISTORY: Chest pain TECHNIQUE: Frontal and lateral views of the chest are obtained. FINDINGS: There is no focal air space opacity, pleural effusion, or pneumothorax seen. The cardiac silhouette size is stable. The osseous structures are intact. IMPRESSION: No acute cardiopulmonary process.
[2018-03-10 11:32] LABS: Creatine Kinase 30 U/L (30-135)
[2018-03-10 11:33] LABS: Prothrombin Time 9.5 sec (9.0-12.0)
[2018-03-10 11:34] LABS: Partial Thromboplastin Time 23.4 sec (22.0-30.0)
[2018-03-10 11:43] LABS: Creatine Kinase MB 0.3 ng/mL (0.0-2.4); Troponin I <0.012 ng/mL (0.000-0.034)
--- NOTE | 2018-03-10 11:52 | CT ---
EXAMINATION TYPE: CT brain wo con DATE OF EXAM: 03/10/2018 COMPARISON: 12/25/2017 HISTORY: Left arm numbness and chest pain CT DLP: 1144 mGycm. Automated Exposure Control for Dose Reduction was Utilized. TECHNIQUE: CT scan of the head is performed without contrast. FINDINGS: There is no acute intracranial hemorrhage, mass effect, or midline shift identified. The ventricles and sulci are within normal limits in size. The globes are intact and the visualized sin uses are clear. Mild mucosal thickening is seen within the maxillary sinuses and ethmoid sinuses. Rem aining visualized paranasal sinuses and mastoid air cells are well aerated. IMPRESSION: No acute intracranial process, unchanged from the prior of 12/25/2017. Redemonstration of mild sinusitis.
[2018-03-10 12:31] VITALS: BP 131/88; PULSE 72; RESP 16; TEMP 98
== END 2018-03-10 12:40 | disposition home or self-care (01) ==
LOC: EC 10:22
DX: G89.4 Chronic pain syndrome (principal); R07.9 Chest pain, unspecified; Z86.73 Personal history of transient ischemic attack (TIA), and cerebral infarction without residual deficits; Z86.14 Personal history of Methicillin resistant Staphylococcus aureus infection; Z79.891 Long term (current) use of opiate analgesic; Z79.02 Long term (current) use of antithrombotics/antiplatelets; Z79.899 Other long term (current) drug therapy; Z91.041 Radiographic dye allergy status; Z91.048 Other nonmedicinal substance allergy status; Z88.8 Allergy status to other drugs, medicaments and biological substances; Z88.5 Allergy status to narcotic agent
CPT/HCPCS: 36415; 70450; 71046; 80053; 81025; 82550; 82553; 83735; 83880; 84484; 85025; 85610; 85730; 93005; 99285

== ENCOUNTER 2018-05-11 19:47 | Inpatient (IN) | payer MEDICARE, OTHER ==
[2018-05-11] MEDS ORDERED: FAMOTIDINE 20 MG/2 ML VIAL IV STA (20:22)
[2018-05-11] MEDS ORDERED: methylPREDNISolone SOD SUCCI 125 MG/2 ML VIAL IV STA (20:22)
[2018-05-11] MEDS ORDERED: diphenhydrAMINE 50 MG/ML 1 ML VIAL IVP STA (20:22)
[2018-05-11 20:25] LABS: Glucose,Whole Blood 98 mg/dL (75-99)
[2018-05-11 20:40] LABS: Basophils % (A) 0 %; Eosinophils # (A) 0.4 k/uL (0-0.7); Eosinophils % (A) 3 %; HCT 36.9 % (34.0-46.0); HGB 12.4 gm/dL (11.4-16.0); Lymphocytes % (A) 16 %; MCH 27.3 pg (25.0-35.0); MCHC 33.6 g/dL (31.0-37.0); MCV 81.2 fL (80.0-100.0); Mean Platelet Volume 7.6; Monocytes # (A) 0.6 k/uL (0-1.0); Monocytes % (A) 5 %; Neutrophils # (A) 9.5 k/uL (1.3-7.7); Neutrophils % (A) 75 %; Platelet Count 318 k/uL (150-450); RBC 4.54 m/uL (3.80-5.40); RDW 13.6 % (11.5-15.5); WBC 12.6 k/uL (3.8-10.6)
[2018-05-11 20:48] LABS: ALT 25 U/L (9-52); AST 16 U/L (14-36); Albumin 3.4 g/dL (3.5-5.0); Alkaline Phosphatase 49 U/L (38-126); Anion Gap 7 mmol/L; Blood Urea Nitrogen 9 mg/dL (7-17); Calcium 8.6 mg/dL (8.4-10.2); Carbon Dioxide 25 mmol/L (22-30); Chloride 106 mmol/L (98-107); Glucose 105 mg/dL (74-99); Potassium 4.4 mmol/L (3.5-5.1); Sodium 138 mmol/L (137-145); Total Bilirubin 0.1 mg/dL (0.2-1.3)
[2018-05-11 20:49] LABS: Creatine Kinase 44 U/L (30-135)
[2018-05-11 20:51] LABS: Prothrombin Time 9.5 sec (9.0-12.0)
--- NOTE | 2018-05-11 20:54 | CT ---
EXAMINATION TYPE: CT brain wo con for TPA DATE OF EXAM: 05/11/2018 COMPARISON: 03/10/2018 HISTORY: Neuro deficits. CT DLP: 1050.8 mGycm Automated exposure control for dose reduction was used. FINDINGS: Ventricles and sulci appear normal. There is no mass effect nor midline shift. There is no sign of in tracranial hemorrhage. The calvarium is intact. There is mild mucosal thickening in the ethmoid air c ells. IMPRESSION: Negative CT scan of the brain. Mild ethmoid sinusitis is new compared to old exam.
[2018-05-11 21:02] LABS: Creatine Kinase MB 0.4 ng/mL (0.0-2.4); Troponin I <0.012 ng/mL (0.000-0.034)
--- NOTE | 2018-05-11 21:11 | XR ---
EXAMINATION TYPE: XR chest 1V portable DATE OF EXAM: 05/11/2018 COMPARISON: 03/10/2018 HISTORY: Altered mental status TECHNIQUE: Single frontal view of the chest is obtained. FINDINGS: Heart and mediastinum are normal. Lungs are clear. Diaphragm is normal. There are chest le ads. IMPRESSION: Normal chest. No change.
--- NOTE | 2018-05-11 21:22 | CT ---
EXAMINATION TYPE: CT angio head neck DATE OF EXAM: 05/11/2018 HISTORY: Neuro deficits. COMPARISON: 12/24/2017 CT DLP: 417.3 mGycm. Automated Exposure Control for Dose Reduction was Utilized. TECHNIQUE: CTA scan of the neck is performed with IV Contrast, patient injected with 65ml mL of Isov ue 370, axial images are obtained, coronal and sagittal reformatted images are reviewed. Three-D amelia nstructed images are created on an independent workstation and reviewed. FINDINGS: There is normal branching pattern of the great vessels on the aortic arch. There is bilateral arteria l flow in the vertebral arteries which are fairly symmetric. There is arterial flow in the vertebroba silar artery system. There is arterial flow in the common internal and external carotid arteries bila terally. Carotid artery bifurcations appear widely patent. There is no evidence of aneurysm or dissec tion. There is normal contrast opacification of the anterior middle and posterior cerebral arteries. I see no evidence of aneurysm or neovascularity. There is no mass effect. There is no sign of stenosi s. There is normal contrast opacification of the venous sinuses. IMPRESSION: Negative CT angiogram of the neck and brain. No adverse change compared to old exam.
--- NOTE | 2018-05-11 22:27 | ED ---
Neuro HPI - General Chief Complaint: Neuro Symptoms/Deficit Stated Complaint: Left side numbness/Poss stroke Time Seen by Provider: 05/11/18 19:56 Source: patient, RN notes reviewed Mode of arrival: wheelchair Limitations: no limitations - History of Present Illness Is the patient presenting with stroke symptoms?: Yes Initial Comments: This is a 37-year-old female who states she had a CVA in November of this year who presents with sudden onset about one hour ago of left-sided upper or lower extremity numbness with weakness. No headache she states she has some blurry vision nausea vomiting fevers chills sweats or other symptoms. - Related Data Home Medications: Home Medications Medication Instructions Recorded Confirmed HYDROcodone/APAP 10-325MG [[place] 1 tab PO TID 12/24/17 05/11/18 10-325] Bisoprolol-Hctz 2.5-6.25 mg [[place] 1 tab PO DAILY 03/10/18 05/11/18 2.5-6.25] Clopidogrel [Plavix] 75 mg PO DAILY 03/10/18 05/11/18 Allergies/Adverse Reactions: Allergies Allergy/AdvReac Type Severity Reaction Status Date / Time Iodinated Contrast- Oral and Allergy Rash/Hives Verified 05/11/18 20:25 IV Dye [Iodinated Contrast Media - IV Dye] iodine Allergy Rash/Hives Verified 05/11/18 20:25 Iodine and Iodide Containing Allergy Rash/Hives Verified 05/11/18 20:25 Produc bupropion HCl AdvReac Unknown Homicidal Verified 05/11/18 20:25 [From Wellbutrin] Ideation hydromorphone HCl AdvReac Diarrhea Verified 05/11/18 20:25 [From Dilaudid] propoxyphene napsylate AdvReac Nausea & Verified 05/11/18 20:25 [From Darvocet-N] Vomiting steroids Allergy Rash/Hives Uncoded 03/10/18 10:36 Review of Systems ROS Statement: Those systems with pertinent positive or pertinent negative responses have been documented in the HPI. ROS Other: All systems not noted in ROS Statement are negative. General Exam Limitations: no limitations Stroke MDM - Lab Data Result diagrams: 05/11/18 20:20 05/11/18 20:20 Lab Results 05/11/18 05/11/18 05/11/18 Range/Units 20:20 20:20 20:20 WBC 12.6 H (3.8-10.6) k/uL RBC 4.54 (3.80-5.40) m/uL Hgb 12.4 (11.4-16.0) gm/dL Hct 36.9 (34.0-46.0) % MCV 81.2 (80.0-100.0) fL MCH 27.3 (25.0-35.0) pg MCHC 33.6 (31.0-37.0) g/dL RDW 13.6 (11.5-15.5) % Plt Count 318 (150-450) k/uL Neutrophils % 75 % Lymphocytes % 16 % Monocytes % 5 % Eosinophils % 3 % Basophils % 0 % Neutrophils # 9.5 H (1.3-7.7) k/uL Lymphocytes # 2.0 (1.0-4.8) k/uL Monocytes # 0.6 (0-1.0) k/uL Eosinophils # 0.4 (0-0.7) k/uL Basophils # 0.0 (0-0.2) k/uL PT (9.0-12.0) sec INR (<1.2) APTT (22.0-30.0) sec Sodium 138 (137-145) mmol/L Potassium 4.4 (3.5-5.1) mmol/L Chloride 106 (98-107) mmol/L Carbon Dioxide 25 (22-30) mmol/L Anion Gap 7 mmol/L BUN 9 (7-17) mg/dL Creatinine 0.60 (0.52-1.04) mg/dL Est GFR (CKD-EPI)AfAm >90 (>60 ml/min/1.73 sqM) Est GFR (CKD-EPI)NonAf >90 (>60 ml/min/1.73 sqM) Glucose 105 H (74-99) mg/dL POC Glucose (mg/dL) (75-99) mg/dL POC Glu Keyboard Teacher ID Calcium 8.6 (8.4-10.2) mg/dL Total Bilirubin 0.1 L (0.2-1.3) mg/dL AST 16 (14-36) U/L ALT 25 (9-52) U/L Alkaline Phosphatase 49 (38-126) U/L Total Creatine Kinase 44 (30-135) U/L CK-MB (CK-2) 0.4 (0.0-2.4) ng/mL CK-MB (CK-2) Rel Index 0.9 Troponin I <0.012 (0.000-0.034) ng/mL Total Protein 6.0 L (6.3-8.2) g/dL Albumin 3.4 L (3.5-5.0) g/dL 05/11/18 05/11/18 Range/Units 20:20 20:23 WBC (3.8-10.6) k/uL RBC (3.80-5.40) m/uL Hgb (11.4-16.0) gm/dL Hct (34.0-46.0) % MCV (80.0-100.0) fL MCH (25.0-35.0) pg MCHC (31.0-37.0) g/dL RDW (11.5-15.5) % Plt Count (150-450) k/uL Neutrophils % % Lymphocytes % % Monocytes % % Eosinophils % % Basophils % % Neutrophils # (1.3-7.7) k/uL Lymphocytes # (1.0-4.8) k/uL Monocytes # (0-1.0) k/uL Eosinophils # (0-0.7) k/uL Basophils # (0-0.2) k/uL PT 9.5 (9.0-12.0) sec INR 1.0 (<1.2) APTT 23.0 (22.0-30.0) sec Sodium (137-145) mmol/L Potassium (3.5-5.1) mmol/L Chloride (98-107) mmol/L Carbon Dioxide (22-30) mmol/L Anion Gap mmol/L BUN (7-17) mg/dL Creatinine (0.52-1.04) mg/dL Est GFR (CKD-EPI)AfAm (>60 ml/min/1.73 sqM) Est GFR (CKD-EPI)NonAf (>60 ml/min/1.73 sqM) Glucose (74-99) mg/dL POC Glucose (mg/dL) 98 (75-99) mg/dL POC Glu Keyboard Teacher ID Sabine Ramos Calcium (8.4-10.2) mg/dL Total Bilirubin (0.2-1.3) mg/dL AST (14-36) U/L ALT (9-52) U/L Alkaline Phosphatase (38-126) U/L Total Creatine Kinase (30-135) U/L CK-MB (CK-2) (0.0-2.4) ng/mL CK-MB (CK-2) Rel Index Troponin I (0.000-0.034) ng/mL Total Protein (6.3-8.2) g/dL Albumin (3.5-5.0) g/dL - NIH Stroke Scale 1a. Level of Consciousness: (0) alert 1b. LOC Questions: (0) answers correctly 1c. LOC Commands: (0) performs tasks correctly 2. Best Gaze: (0) normal 3. Visual: (0) no visual loss 4. Facial Palsy: (0) normal symmetrical movement 5a. Motor Arm Left: (2) some gravity effort 5b. Motor Arm Right: (0) no drift 6a. Motor Leg Left: (2) some gravity effort 6b. Motor Leg Right: (0) no drift 7. Limb Ataxia: (0) absent 8. Sensory: (1) mild/moderate sensory loss 9. Best Language: (0) no aphasia 10. Dysarthria: (0) normal 11. Extinction/Inattention: (0) no abnormality - Thrombolytic Inclusion/Exclusion Thrombolytic Contraindications: Rapidly Improving s/s - EKG Data -: EKG Interpreted by Me EKG shows normal: sinus rhythm, axis, intervals, QRS complexes, ST-T waves ( Normal sinus rhythm a 61 appear of 01 70 QRS duration 90 QT since QTC of 46/[address]-T wave changes) Past Medical History Past Medical History: Asthma, CVA/TIA, Seizure Disorder Additional Past Medical History / Comment(s): kidney infections, chronic back pain, migraines, last seizure 6 months ago History of Any Multi-Drug Resistant Organisms: MRSA Date of last positivie culture/infection: 1999,2013 MDRO Source:: right leg Past Surgical History: Section, Cholecystectomy, Tubal Ligation Additional Past Surgical History / Comment(s): ear surgerys (x15 left ear & 15 right ear), x2 Past Anesthesia/Blood Transfusion Reactions: No Reported Reaction Additional Past Anesthesia/Blood Transfusion Reaction / Comment(s): PT STATES DIFFICULTY WAKING UP. PTS FATHER ALSO HAS DIFFICULTY WAKING UP. Past Psychological History: Anxiety Smoking Status: Never smoker Past Alcohol Use History: None Reported Past Drug Use History: None Reported - Past Family History Mother Family Medical History: Cancer Additional Family Medical History / Comment(s): KIDNEY CANCER, in 2012 Father Family Medical History: CVA/TIA, Myocardial Infarction ([place]) Course Vital Signs 05/11/18 05/11/18 05/11/18 19:52 20:25 20:40 Temperature 98.4 F 97.9 F 97.9 F Pulse Rate 72 68 78 Respiratory 18 16 16 Rate Blood Pressure 129/74 131/80 140/65 O2 Sat by Pulse 98 99 Oximetry 05/11/18 05/11/18 05/11/18 20:55 21:10 21:40 Temperature 98.2 F Pulse Rate 68 57 L 70 Respiratory 16 18 18 Rate Blood Pressure 125/69 163/83 111/55 O2 Sat by Pulse 100 100 99 Oximetry 05/11/18 22:10 Temperature Pulse Rate 69 Respiratory 18 Rate Blood Pressure 117/71 O2 Sat by Pulse 95 Oximetry - Reevaluation(s) Reevaluation #1: 05/11/18 22:26 The patient had a code stroke called but she did demonstrate rapidly improving symptoms. She had a negative CT. She is not a candidate for intervention at this time. I did discuss the case with Dr. Guerrier did recommend admission at this hospital. Reevaluation #2: 05/11/18 22:27 Symptoms have improved markedly Critical Care Time Critical Care Time: Yes Critical Care Time: 37 minutes of critical care time which includes initial presentation with history physical labs x-rays several reevaluation is of the patient. Discussed with the interventional neurologist. Review of all labs and imaging studies. Admission orders documentation above discussion with the admitting physician Disposition Clinical Impression: Transient ischemic attack (TIA) Disposition: ADMITTED IP TO THIS [facility] Condition: Stable Referrals: None,Stated [Primary Care Provider] - 1-2 days
[2018-05-12] MEDS: SODIUM CHLORIDE 0.9% 1,000 ML IV SCH ×3 (00:30→22:25)
[2018-05-12 03:07] LABS: Cholesterol 171 mg/dL (<200); HDL Cholesterol 26 mg/dL (40-60); LDL Cholesterol,Calculated 110 mg/dL (0-99); Triglycerides 177 mg/dL (<150)
[2018-05-12 07:28] LABS: Glucose,Whole Blood 198 mg/dL (75-99)
[2018-05-12] MEDS: HYDROcodone/APAP 10-325MG 1 EACH TAB PO SCH ×3 (09:10→21:44)
[2018-05-12] MEDS: BISOPROLOL-HCTZ 2.5-6.25 MG 1 EACH TAB PO SCH (09:10)
[2018-05-12] MEDS: CLOPIDOGREL 75 MG TAB PO SCH (09:11)
[2018-05-12 14:12] LABS: Hemoglobin A1C 5.8 % (4.0-6.0)
[2018-05-12 14:19] VITALS: BMI 44.8
--- NOTE | 2018-05-12 14:27 | ECHOF ---
Referral Reason:Thrombus MEASUREMENTS -------- HEIGHT: 165.1 cm WEIGHT: 122.0 kg BP: 107/50 RVIDd: 3.5 cm (< 3.3) IVSd: 1.2 cm (0.6 - 1.1) LVIDd: 5.0 cm (3.9 - 5.3) LVPWd: 1.1 cm (0.6 - 1.1) IVSs: 1.7 cm LVIDs: 3.4 cm LVPWs: 1.4 cm LA Diam: 4.3 cm (2.7 - 3.8) LAESV Index (A-L): 39.33 ml/m Ao Diam: 3.0 cm (2.0 - 3.7) AV Cusp: 2.3 cm (1.5 - 2.6) MV EXCURSION: 17.354 mm (> 18.000) MV EF SLOPE: 114 mm/s (70 - 150) EPSS: 0.3 cm MV E [place]: 1.00 m/s MV DecT: 201 ms MV A [place]: 0.78 m/s MV E/A Ratio: 1.28 AV maxP.00 mmHg AV meanP.53 mmHg FINDINGS -------- Sinus rhythm. This was a technically good study. The left ventricular size is normal. There is borderline concentric left ventricular hypertrophy. Overall left ventricular systolic function is normal with, an EF between 60 - 65 %. The right ventricle is mildly enlarged. LA is moderately dilated 34-39 ml/m2 The right atrium is normal in size. The aortic valve is trileaflet and appears structurally normal. There is trace mitral regurgitation. Trace tricuspid regurgitation present. The pulmonic valve was not well visualized. The aortic root size is normal. Normal inferior vena cava with normal inspiratory collapse consistent with estimated right atrial pre ssure of 5 mmHg. The inferior vena cava is mildly dilated. There is no pericardial effusion. CONCLUSIONS -------- 1. Sinus rhythm. 2. This was a technically good study. 3. The left ventricular size is normal. 4. There is borderline concentric left ventricular hypertrophy. 5. Overall left ventricular systolic function is normal with, an EF between 60 - 65 %. 6. The right ventricle is mildly enlarged. 7. LA is moderately dilated 34-39 ml/m2 8. The right atrium is normal in size. 9. The aortic valve is trileaflet and appears structurally normal. 10. There is trace mitral regurgitation. 11. Trace tricuspid regurgitation present. 12. The pulmonic valve was not well visualized. 13. The aortic root size is normal. 14. Normal inferior vena cava with normal inspiratory collapse consistent with estimated right atrial pressure of 5 mmHg. 15. The inferior vena cava is mildly dilated. 16. There is no pericardial effusion. BOAT FINISHER: Noemi Lezama RDCS
[2018-05-12 15:00] LABS: Basophils % (A) 0 %; Eosinophils # (A) 0.1 k/uL (0-0.7); Eosinophils % (A) 1 %; HCT 36.5 % (34.0-46.0); HGB 12.5 gm/dL (11.4-16.0); Lymphocytes # (A) 1.2 k/uL (1.0-4.8); Lymphocytes % (A) 6 %; MCHC 34.2 g/dL (31.0-37.0); MCV 81.8 fL (80.0-100.0); Mean Platelet Volume 7.9; Monocytes # (A) 0.6 k/uL (0-1.0); Monocytes % (A) 3 %; Neutrophils # (A) 20.6 k/uL (1.3-7.7); Neutrophils % (A) 91 %; Platelet Count 318 k/uL (150-450); RBC 4.46 m/uL (3.80-5.40); RDW 13.8 % (11.5-15.5); WBC 22.7 k/uL (3.8-10.6)
[2018-05-12 15:12] LABS: Anion Gap 5 mmol/L; Blood Urea Nitrogen 9 mg/dL (7-17); Carbon Dioxide 24 mmol/L (22-30); Chloride 106 mmol/L (98-107); Glucose 154 mg/dL (74-99); Potassium 4.7 mmol/L (3.5-5.1); Sodium 135 mmol/L (137-145)
--- NOTE | 2018-05-12 15:19 | P.HPIM ---
History of Present Illness H&P Date: 05/12/18 Chief Complaint: left side weakness 37-year-old female who presented to the emergency room with a chief complaint of left sided weakness. Patient reports she developed sudden onset of left upper and lower extremity weakness. She also reports slurred speech. The patient has a history of TIA in November 2017 and states she knew to come to the hospital when her symptoms occurred. She does report an episode of dizziness and slurred speech a few days ago which has resolved. The patient continues to have left sided weakness. Patient is able to identify touch to left upper and lower extremity but does not have any sensation of pain. The patient reports blurry vision when trying to read sign taped on the wall in her room. She states her speech is back to her baseline. She denies shortness of breath. Denies cough or congestion. Denies chest pain or pressure. Denies fever or chills. Denies nausea or vomiting. The patient states that she sees Dr. Kirkpatrick, neurologist, outpatient. She is prescribed Plavix daily. Patient reports that she is unable to take aspirin because of adverse reaction. She reports when she was 23 years old she had a severe headache and took aspirin and it made her have a seizure. The patient has a history of TIA in November 2017, asthma, migraines, and hypertension. She also reports having MRSA on 3 separate occasions. The patient has a history of seizure disorder. She states her last seizure was approximately 6 months ago. She states that she does not require antiseizure medication per her neurologist. She also has a history of chronic back pain and is prescribed [place] by Dr. Kirkpatrick. She is a history of anxiety and ADD/ADHD. She is a nonsmoker. Chest x-ray: Negative for an acute process CT of the brain: Negative for an acute process. CT angiogram head and neck: Unremarkable Laboratory data upon admission reveals a white count of 12.6. Hemoglobin 12.4. Platelet count 318. INR 1.0. Sodium 138. Potassium 4.4. BUN 9. Creatinine 0.60. Glucose 105. Troponin negative 1. Triglycerides 177. Total cholesterol 171. LDL 110. HDL 26. The patient was admitted to the hospital under the care of Dr. Merino. Consultations were placed to neurology. Review of Systems Those systems with pertinent positive or pertinent negative responses have been documented in the HPI Past Medical History Past Medical History: Asthma, CVA/TIA, Hypertension, Seizure Disorder Additional Past Medical History / Comment(s): 11/2017 TIA or CVA (pt unsure) with resolved L sided weakness/aphasia but states still has short term memory loss, last seizure in 2017, frequent kidney infections, kidney stones she passed on her own, chronic cervical and low back pain, past fractured coccyx, gestational diabetes. History of Any Multi-Drug Resistant Organisms: MRSA Date of last positivie culture/infection: 1999,2013, 2016 MDRO Source:: right leg Past Surgical History: Appendectomy, Section, Cholecystectomy, Tonsillectomy, Tubal Ligation Additional Past Surgical History / Comment(s): Multiple ear surgeries (x15 left ear & 13 right ear) ended up with eardrum replacements, x2 Past Anesthesia/Blood Transfusion Reactions: No Reported Reaction Additional Past Anesthesia/Blood Transfusion Reaction / Comment(s): PT STATES DIFFICULTY WAKING UP. PTS FATHER ALSO HAS DIFFICULTY WAKING UP. Smoking Status: Never smoker - Past Family History Mother Family Medical History: Cancer Additional Family Medical History / Comment(s): KIDNEY CANCER- in 2012 at the age of 68yrs. Father Family Medical History: CVA/TIA, Myocardial Infarction ([place]) Additional Family Medical History / Comment(s): Father had 8 CVAs and 2 MIs. His first [place] was at age 69yrs and 2nd [place] was at age 71yrs. He has a pacemaker. He is dyslexic. Medications and Allergies Home Medications Medication Instructions Recorded Confirmed Type HYDROcodone/APAP 10-325MG [[place] 1 tab PO TID 12/24/17 05/11/18 History 10-325] Bisoprolol-Hctz 2.5-6.25 mg [Ziac 1 tab PO DAILY 03/10/18 05/11/18 History 2.5-6.25] Clopidogrel [Plavix] 75 mg PO DAILY 03/10/18 05/11/18 History Allergies Allergy/AdvReac Type Severity Reaction Status Date / Time Iodinated Contrast- Oral and Allergy Rash/Hives Verified 05/11/18 20:25 IV Dye [Iodinated Contrast Media - IV Dye] iodine Allergy Rash/Hives Verified 05/11/18 20:25 Iodine and Iodide Containing Allergy Rash/Hives Verified 05/11/18 20:25 Produc bupropion HCl AdvReac Unknown Homicidal Verified 05/11/18 20:25 [From Wellbutrin] Ideation hydromorphone HCl AdvReac Diarrhea Verified 05/11/18 20:25 [From Dilaudid] propoxyphene napsylate AdvReac Nausea & Verified 05/11/18 20:25 [From Darvocet-N] Vomiting steroids Allergy Rash/Hives Uncoded 03/10/18 10:36 Physical Exam Vitals: Vital Signs Temp Pulse Resp BP Pulse Ox 05/12/18 10:10 98.7 F 84 18 137/61 98 05/12/18 08:10 97.6 F 77 18 108/63 93 L 05/12/18 06:13 97.7 F 83 18 107/59 95 05/12/18 04:10 97.7 F 95 18 119/54 95 05/12/18 02:10 98.0 F 89 18 124/72 96 05/12/18 01:10 68 18 136/73 95 05/12/18 00:10 98.2 F 74 18 129/68 95 05/11/18 23:10 98.5 F 67 18 125/62 95 05/11/18 22:10 69 18 117/71 95 05/11/18 21:40 70 18 111/55 99 05/11/18 21:10 57 L 18 163/83 100 05/11/18 20:55 98.2 F 68 16 125/69 100 05/11/18 20:40 97.9 F 78 16 140/65 99 05/11/18 20:25 97.9 F 68 16 131/80 05/11/18 19:52 98.4 F 72 18 129/74 98 Intake and Output 05/11/18 05/12/18 05/12/18 22:59 06:59 14:59 Other: # Voids 1 Weight 122.198 kg GENERAL: This is a 37-year-old female in no apparent distress at the time of examination. Pleasant and cooperative. HEENT: Poor dentition. Head is atraumatic, normocephalic. Pupils are equal, round, and reactive to light. Sclerae anicteric. Conjunctivae are clear. Mucus membranes of the mouth are moist. Neck is supple. RESPIRATORY: Clear to ausculation. No wheezes, rales, or rhonchi. No use of accessory muscles. Patient maintaining oxygen saturation greater than 92%. No chest wall tenderness is noted on palpation or with deep breathing. CARDIOVASCULAR: Regular rate and rhythm. S1 and S2 noted. No systolic or diastolic murmur auscultated. No JVD noted. No S3 or S4 noted. GASTROINTESTINAL: No distention noted. Abdomen soft and round. Normal active bowel sounds auscultated x 4 quadrants. No pain or tenderness noted upon palpation. INTEGUMENTARY: No cyanosis. No jaundice. No rashes noted. No cellulitis noted. EXTREMITIES: 2+ peripheral pulses. No evidence of peripheral edema. No calf tenderness noted. NEUROLOGIC: Speech appears normal. Slight slurring of words which patient says does occur at times and is normal. Right upper and lower extremity strength 5/ 5. Sensation intact to right side. Left upper and lower extremity strength 4/5. No facial droop. Sensation abnormal to LUE and LLE. Patient able to identify light touch but is unable to feel pain or pressure. Upon pinching of skin, patient unable to identify sensation. PSYCHIATRIC: Awake, alert, and oriented X 3. Appropriate affect. Results CBC & Chem 7: 05/12/18 14:47 05/12/18 14:47 Labs: Abnormal Lab Results - Last 24 Hours (Table) 05/11/18 05/11/18 05/11/18 Range/Units 20:20 20:20 20:20 WBC 12.6 H (3.8-10.6) k/uL Neutrophils # 9.5 H (1.3-7.7) k/uL Glucose 105 H (74-99) mg/dL POC Glucose (mg/dL) (75-99) mg/dL Total Bilirubin 0.1 L (0.2-1.3) mg/dL Total Protein 6.0 L (6.3-8.2) g/dL Albumin 3.4 L (3.5-5.0) g/dL Triglycerides 177 H (<150) mg/dL LDL Cholesterol, Calc 110 H (0-99) mg/dL HDL Cholesterol 26 L (40-60) mg/dL 05/12/18 Range/Units 07:20 WBC (3.8-10.6) k/uL Neutrophils # (1.3-7.7) k/uL Glucose (74-99) mg/dL POC Glucose (mg/dL) 198 H (75-99) mg/dL Total Bilirubin (0.2-1.3) mg/dL Total Protein (6.3-8.2) g/dL Albumin (3.5-5.0) g/dL Triglycerides (<150) mg/dL LDL Cholesterol, Calc (0-99) mg/dL HDL Cholesterol (40-60) mg/dL Thrombosis Risk Factor Assmnt - Choose All That Apply Any of the Below Risk Factors Present?: Yes Each Factor Represents 1 point: Obesity (BMI >25) Other Risk Factors: No Other congenital or acquired thrombophilia - If yes, enter type in comment: No Thrombosis Risk Factor Assessment Total Risk Factor Score: 1 Thrombosis Risk Factor Assessment Level: Low Risk Assessment and Plan Plan: ASSESSMENT: Left sided weakness and impaired sensation of upper and lower extremities, possible TIA, supratentorial. possible stress induced. neurology following Leukocytosis Elevated random blood glucose (198), rule out diabetes mellitus, hemoglobin A1c pending History of TIA, November 2017 History of seizure disorder, patient reports last seizure was 6 months ago and does not require antiseizure medication per her neurologist, Dr. Kirkpatrick Hypertension Chronic back pain Chronic opioid use, secondary to above, patient sees Dr. Kirkpatrick for pain management ADD/ADHD Anxiety History of MRSA 3 per patient PLAN: Neurology on consult. Await further recommendations and input Continue plavix. Will defer aspirin continuation to neurology. Continue neuro checks as ordered. Notify provider of any changes. Home meds as appropriate Monitor labs PT/OT consult GI prophylaxis: Protonix 40 mg PO Daily DVT prophylaxis: Heparin 5000 units subcu every 8 hours Monitor vital signs and address as appropriate Discharge planning: Patient to return home when stable Further recommendations pending patient's course Nurse practitioner note has been reviewed by physician. Signing provider agrees with the documented findings, assessment, and plan of care.
[2018-05-12] MEDS: HEPARIN SODIUM,PORCINE 5,000 UNIT/ML 1 ML VIAL SQ SCH ×2 (15:30→23:55)
[2018-05-12 16:28] LABS: Glucose,Whole Blood 163 mg/dL (75-99)
[2018-05-12 21:14] LABS: Glucose,Whole Blood 130 mg/dL (75-99)
[2018-05-12] MEDS: ASPIRIN 325 MG TAB PO SCH (21:43)
--- NOTE | 2018-05-12 23:28 | P.CNNES ---
History of Present Illness Consult date: 05/12/18 Reason for Consult: Patient with left sided weakness and slurred speech. History of Present Illness: This patient is a 37-year-old right-handed white female who was brought into the emergency room at [facility] with symptoms of left-sided weakness. Apparently her symptoms had started about an hour prior to her coming to the emergency room. She also complained of slurring of her speech. Patient has a history of having suffered a TIA in November 2017. Her symptoms at that time were also one of left-sided weakness. 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 She was started on Plavix for secondary stroke prevention. According to the patient this morning she noted left face arm and leg numbness. This was then followed by weakness in her left leg. Due to her history of having TIA earlier this year she had been taking her Plavix on a daily basis. She also has a history of underlying seizure disorder but has not had any breakthrough seizures in over 6 months. She does not require any anticonvulsant medication according to the patient. She also has a history of underlying anxiety disorder with ADHD. She was evaluated in the emergency room by Dr. Vasques. She was sent for a computed tomography scan of the brain and CT angiogram of the head and neck both of which came back normal. She was subsequent admitted to Hospital for further stroke evaluation. According to the ER notes Dr. Vasques noted that she had rapidly improving symptoms in the ER and was not a candidate for TPA or other acute intervention for stroke. Dr. Vasques did discuss her findings with the neuro interventionalists Dr. Guerrier would advised that she was not a candidate for TPA or other intervention and recommended admission to the hospital for a complete stroke evaluation. The patient states she has been feeling better but still has numbness in her left lower extremity. 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 She is now been admitted and neurology has been consulted for further evaluation and recommendations. Review of Systems Constitutional: Denies chills, Denies fever Eyes: denies blurred vision, denies pain Ears, nose, mouth and throat: Denies headache, Denies sore throat Cardiovascular: Denies chest pain, Denies shortness of breath Respiratory: Denies cough Gastrointestinal: Denies abdominal pain, Denies diarrhea, Denies nausea, Denies vomiting Genitourinary: Denies dysuria, Denies hematuria Musculoskeletal: Denies myalgias Integumentary: Denies pruritus, Denies rash Neurological: Reports aphasia, Reports change in speech, Reports motor disturbance, Reports paresthesias, Reports tingling, Denies numbness, Denies weakness Psychiatric: Denies anxiety, Denies depression Endocrine: Denies fatigue, Denies weight change Past Medical History Past Medical History: Asthma, CVA/TIA, Hypertension, Seizure Disorder Additional Past Medical History / Comment(s): 11/2017 TIA or CVA (pt unsure) with resolved L sided weakness/aphasia but states still has short term memory loss, last seizure in 2016, frequent kidney infections, kidney stones she passed on her own, chronic cervical and low back pain, past fractured coccyx, gestational diabetes. History of Any Multi-Drug Resistant Organisms: MRSA Date of last positivie culture/infection: 1999,2013, 2016 MDRO Source:: right leg Past Surgical History: Appendectomy, Section, Cholecystectomy, Tonsillectomy, Tubal Ligation Additional Past Surgical History / Comment(s): Multiple ear surgeries (x15 left ear & 13 right ear) ended up with eardrum replacements, x2 Past Anesthesia/Blood Transfusion Reactions: No Reported Reaction Additional Past Anesthesia/Blood Transfusion Reaction / Comment(s): PT STATES DIFFICULTY WAKING UP. PTS FATHER ALSO HAS DIFFICULTY WAKING UP. Smoking Status: Never smoker - Past Family History Mother Family Medical History: Cancer Additional Family Medical History / Comment(s): KIDNEY CANCER- in 2012 at the age of 68yrs. Father Family Medical History: CVA/TIA, Myocardial Infarction ([place]) Additional Family Medical History / Comment(s): Father had 8 CVAs and 2 MIs. His first [place] was at age 69yrs and 2nd [place] was at age 71yrs. He has a pacemaker. He is dyslexic. Medications and Allergies Home Medications Medication Instructions Recorded Confirmed Type HYDROcodone/APAP 10-325MG [[place] 1 tab PO TID 12/24/17 05/11/18 History 10-325] Bisoprolol-Hctz 2.5-6.25 mg [Ziac 1 tab PO DAILY 03/10/18 05/11/18 History 2.5-6.25] Clopidogrel [Plavix] 75 mg PO DAILY 03/10/18 05/11/18 History Allergies Allergy/AdvReac Type Severity Reaction Status Date / Time Iodinated Contrast- Oral and Allergy Rash/Hives Verified 05/11/18 20:25 IV Dye [Iodinated Contrast Media - IV Dye] iodine Allergy Rash/Hives Verified 05/11/18 20:25 Iodine and Iodide Containing Allergy Rash/Hives Verified 05/11/18 20:25 Produc bupropion HCl AdvReac Unknown Homicidal Verified 05/11/18 20:25 [From Wellbutrin] Ideation hydromorphone HCl AdvReac Diarrhea Verified 05/11/18 20:25 [From Dilaudid] propoxyphene napsylate AdvReac Nausea & Verified 05/11/18 20:25 [From Darvocet-N] Vomiting steroids Allergy Rash/Hives Uncoded 03/10/18 10:36 Physical Examination - Vital Signs Vital Signs: Vital Signs Temp Pulse Pulse Resp BP BP Pulse Ox 05/12/18 18:18 66 16 102/54 96 05/12/18 16:18 97.3 F L 74 16 108/61 95 05/12/18 14:10 64 16 105/57 96 05/12/18 12:18 97.6 F 79 16 142/70 96 05/12/18 10:10 98.7 F 84 18 137/61 98 05/12/18 08:10 97.6 F 77 18 108/63 93 L 05/12/18 06:13 97.7 F 83 18 107/59 95 05/12/18 04:10 97.7 F 95 18 119/54 95 05/12/18 02:10 98.0 F 89 18 124/72 96 05/12/18 01:10 68 18 136/73 95 05/12/18 00:10 98.2 F 74 18 129/68 95 05/11/18 23:10 98.5 F 67 18 125/62 95 05/11/18 22:10 69 18 117/71 95 05/11/18 21:40 70 18 111/55 99 05/11/18 21:10 57 L 18 163/83 100 05/11/18 20:55 98.2 F 68 16 125/69 100 05/11/18 20:40 97.9 F 78 16 140/65 99 05/11/18 20:25 97.9 F 68 16 131/80 Intake and Output 05/12/18 05/12/18 05/12/18 06:59 14:59 22:59 Intake Total 360 300 Balance 360 300 Intake: Oral 360 300 Other: # Voids 1 Weight 122.198 kg - Constitutional General appearance: average body habitus, cooperative - EENT EENT: PERRL, mucous membranes moist - Respiratory Respiratory: lungs clear, normal breath sounds - Cardiovascular Cardiovascular: regular rate, normal S1, normal S2 Extremities: no peripheral edema bilaterally - Gastrointestinal Gastrointestinal: normoactive bowel sounds - Integumentary Integumentary: normal - Neurologic Cranial nerve examination: PERRL, EOMI, VFF, V1/V2/V3 grossly intact, tongue midline, intact gag reflex, intact corneal reflex, normal palatal elevation Speech examination: intact Sensorimotor examination: intact Motor examination - right side: 4/5: biceps, triceps, wrist flexion, wrist extension, acting professor, hip flexors, knee extensors, dorsiflexion, toe extension (EHL) , plantarflexion Motor examination - left side: 4/5: biceps, triceps, wrist flexion, wrist extension, acting professor, hip flexors, knee extensors, dorsiflexion, toe extension (EHL) , plantarflexion Detailed sensory examination: intact Reflex and gait examination: intact Reflexes: 1+: ankle, bicep, knee, tricep - Musculoskeletal Musculoskeletal: no pain - Psychiatric Psychiatric: mood/affect appropriate, cooperative Results - Laboratory Findings CBC and BMP: 05/12/18 14:47 05/12/18 14:47 Abnormal Lab Findings: Abnormal Labs 05/11/18 05/11/18 05/11/18 20:20 20:20 20:20 WBC 12.6 H Neutrophils # 9.5 H Sodium Glucose 105 H POC Glucose (mg/dL) Total Bilirubin 0.1 L Total Protein 6.0 L Albumin 3.4 L Triglycerides 177 H LDL Cholesterol, Calc 110 H HDL Cholesterol 26 L 05/12/18 05/12/18 05/12/18 07:20 14:47 14:47 WBC 22.7 H Neutrophils # 20.6 H Sodium 135 L Glucose 154 H POC Glucose (mg/dL) 198 H Total Bilirubin Total Protein Albumin Triglycerides LDL Cholesterol, Calc HDL Cholesterol 05/12/18 16:20 WBC Neutrophils # Sodium Glucose POC Glucose (mg/dL) 163 H Total Bilirubin Total Protein Albumin Triglycerides LDL Cholesterol, Calc HDL Cholesterol Assessment and Plan (1) Transient ischemic attack (TIA) Current Visit: Yes Status: Acute Code(s): G45.9 - TRANSIENT CEREBRAL ISCHEMIC ATTACK, UNSPECIFIED SNOMED Code(s): 062907579 (2) Left-sided weakness Current Visit: No Status: Acute Code(s): R53.1 - WEAKNESS SNOMED Code(s): 087113195 (3) History of seizure disorder Current Visit: Yes Status: Acute Code(s): Z86.69 - PERSONAL HISTORY OF DIS OF THE NERVOUS SYS AND SENSE ORGANS SNOMED Code(s): 013643270 (4) Chronic back pain Current Visit: Yes Status: Acute Code(s): M54.9 - DORSALGIA, UNSPECIFIED; G89.29 - OTHER CHRONIC PAIN SNOMED Code(s): 079060476 Plan: This patient is a 37-year-old right-handed white female who was admitted to [facility] for evaluation of acute left-sided weakness and numbness. Patient had symptoms of numbness and tingling involving her left face arm and leg region. This was then followed immediately by weakness in her left leg. She also noted some slurring of her speech and at this time decided to come to the emergency room for immediate evaluation. She was seen in the ER by Dr. Vasques and underwent CTA angiogram of the head and neck as well as computed tomography scan of the brain. Both studies came back negative. Her symptoms resolved very quickly in the ER and she was not a candidate for any TPA intervention. She was admitted to hospital for further evaluation and treatment. Her neurological examination still reveals some left-sided weakness in the left upper extremity. She does have some give way weakness in the left upper extremity and does not provide good effort. We have recommended the patient undergo MRI of the brain for further evaluation to rule out possibility of acute right hemispheric TIA versus stroke. Patient should be maintained on Plavix for secondary stroke prevention. Her overall prognosis at this time remains guarded. We will continue with close neurological follow-up for this patient during this admission. Case was discussed at length with the patient and she was updated on all of her test results. Time with Patient: Greater than 30
[2018-05-13 02:05] LABS: Glucose,Whole Blood 134 mg/dL (75-99)
[2018-05-13] MEDS: SODIUM CHLORIDE 0.9% 1,000 ML IV SCH (06:20)
[2018-05-13 06:29] LABS: Glucose,Whole Blood 110 mg/dL (75-99)
[2018-05-13 06:53] LABS: Basophils % (A) 0 %; Eosinophils # (A) 0.2 k/uL (0-0.7); Eosinophils % (A) 1 %; HCT 35.5 % (34.0-46.0); HGB 11.9 gm/dL (11.4-16.0); Lymphocytes # (A) 2.4 k/uL (1.0-4.8); Lymphocytes % (A) 17 %; MCH 27.7 pg (25.0-35.0); MCHC 33.4 g/dL (31.0-37.0); MCV 82.8 fL (80.0-100.0); Mean Platelet Volume 7.7; Monocytes # (A) 0.6 k/uL (0-1.0); Monocytes % (A) 4 %; Neutrophils # (A) 10.4 k/uL (1.3-7.7); Neutrophils % (A) 76 %; Platelet Count 288 k/uL (150-450); RBC 4.29 m/uL (3.80-5.40); RDW 13.9 % (11.5-15.5); WBC 13.6 k/uL (3.8-10.6)
[2018-05-13 06:56] LABS: Anion Gap 6 mmol/L; Blood Urea Nitrogen 13 mg/dL (7-17); Calcium 8.8 mg/dL (8.4-10.2); Carbon Dioxide 24 mmol/L (22-30); Chloride 107 mmol/L (98-107); Glucose 107 mg/dL (74-99); Potassium 4.2 mmol/L (3.5-5.1); Sodium 137 mmol/L (137-145)
[2018-05-13] MEDS ORDERED: PANTOPRAZOLE 40 MG TABLET PO SCH (07:30)
[2018-05-13] MEDS: ASPIRIN 325 MG TAB PO SCH ×2 (08:51→09:00)
[2018-05-13] MEDS: BISOPROLOL-HCTZ 2.5-6.25 MG 1 EACH TAB PO SCH (08:51)
[2018-05-13] MEDS: HEPARIN SODIUM,PORCINE 5,000 UNIT/ML 1 ML VIAL SQ SCH ×2 (08:51→08:52)
[2018-05-13] MEDS: CLOPIDOGREL 75 MG TAB PO SCH (08:51)
[2018-05-13] MEDS: HYDROcodone/APAP 10-325MG 1 EACH TAB PO SCH (08:57)
--- NOTE | 2018-05-13 10:21 | MR ---
EXAMINATION TYPE: MR brain wo con DATE OF EXAM: 05/13/2018 COMPARISON: CT brain from 2 days ago. HISTORY: Patient with left sided weakness and possible TIA. Neurodeficits on admission 2 days earlier . TECHNIQUE: Multiplanar, multisequence imaging of the brain and brainstem is performed without IV cont rast. FINDINGS: Diffusion weighted images demonstrate no evidence of a recent infarct or other diffusion abnormality. There is no extraaxial fluid collection or significant white matter signal abnormality. The ventricu lar system and cisternal spaces are normal in size and appearance. The brain volume is age appropria te. Midline structures demonstrate normal morphology. The craniocervical junction appears within normal limits. Normal vascular flow voids are present. There is mild to moderate mucosal thickening involvin g ethmoid sinuses bilaterally and mild mucosal thickening inferiorly in bilateral maxillary sinuses. Some patchy fluid signal left mastoid air cells is noted. Suspect bilateral subcentimeter intraparoti d lymph nodes. IMPRESSION: 1. No evidence of a recent infarct. 2. Chronic paranasal sinus disease redemonstrated as detailed above. 3. Possible mild left-sided mastoiditis versus product of retained secretions. Correlate clinically.
[2018-05-13 10:41] VITALS: RESP 18
[2018-05-13 12:01] LABS: Glucose,Whole Blood 91 mg/dL (75-99)
--- NOTE | 2018-05-13 13:25 | P.DS ---
Providers Date of admission: 05/11/18 23:17 Expected date of discharge: 05/13/18 Attending physician: Rogerio Merino Consults: 05/11/18 23:19 Consult Physician Routine Consulting Provider: Holley Valdes Consult Reason/Comments: TIA Do you want consulting provider notified?: Yes, Notify in am Primary care physician: Stated None - Discharge Diagnosis(es) (1) Hemiplegia Current Visit: Yes Status: Acute (2) Chronic back pain Current Visit: Yes Status: Chronic (3) Transient ischemic attack (TIA) Current Visit: Yes Status: Acute (4) Left-sided weakness Current Visit: Yes Status: Resolved (5) Lumbar facet arthropathy Current Visit: Yes Status: Chronic Hospital Course: 37-year-old female who presented to the emergency room with a chief complaint of left sided weakness. Patient reports she developed sudden onset of left upper and lower extremity weakness. She also reports slurred speech. The patient has a history of TIA in November 2017 and states she knew to come to the hospital when her symptoms occurred. She does report an episode of dizziness and slurred speech a few days ago which has resolved. The patient continues to have left sided weakness. Patient is able to identify touch to left upper and lower extremity but does not have any sensation of pain. The patient reports blurry vision when trying to read sign taped on the wall in her room. She states her speech is back to her baseline. She denies shortness of breath. Denies cough or congestion. Denies chest pain or pressure. Denies fever or chills. Denies nausea or vomiting. The patient states that she sees Dr. Kirkpatrick, neurologist, outpatient. She is prescribed Plavix daily. Patient reports that she is unable to take aspirin because of adverse reaction. She reports when she was 23 years old she had a severe headache and took aspirin and it made her have a seizure. The patient has a history of TIA in November 2017, asthma, migraines, and hypertension. She also reports having MRSA on 3 separate occasions. The patient has a history of seizure disorder. She states her last seizure was approximately 6 months ago. She states that she does not require antiseizure medication per her neurologist. She also has a history of chronic back pain and is prescribed Corona by Dr. Kirkpatrick. She is a history of anxiety and ADD/ADHD. She is a nonsmoker. Chest x-ray: Negative for an acute process CT of the brain: Negative for an acute process. CT angiogram head and neck: Unremarkable Laboratory data upon admission reveals a white count of 12.6. Hemoglobin 12.4. Platelet count 318. INR 1.0. Sodium 138. Potassium 4.4. BUN 9. Creatinine 0.60. Glucose 105. Troponin negative 1. Triglycerides 177. Total cholesterol 171. LDL 110. HDL 26. The patient was admitted to the hospital under the care of Dr. Merino. Consultations were placed to neurology. 05/13/2018: Patient was seen by neurology. Her neurological symptoms have mostly resolved. Her MRI was negative, as were her CT and other workups. She feels much better. Her A1c was 5.8. Glucoses have been slightly elevated. She is requesting discharge. She will follow up with Dr. Kirkpatrick as Dr. Mckeon was on-call. This is different from what is stated. Patient Condition at Discharge: Fair Plan - Discharge Summary Discharge Rx Participant: No New Discharge Prescriptions: Continue HYDROcodone/APAP 10-325MG [[place] 10-325] 1 tab PO TID Clopidogrel [Plavix] 75 mg PO DAILY Bisoprolol-Hctz 2.5-6.25 mg [Ziac 2.5-6.25 MG] 1 tab PO DAILY Discharge Medication List HYDROcodone/APAP 10-325MG [[place] 10-325] 1 tab PO TID 12/24/17 [History] Bisoprolol-Hctz 2.5-6.25 mg [Ziac 2.5-6.25 MG] 1 tab PO DAILY 03/10/18 [History] Clopidogrel [Plavix] 75 mg PO DAILY 03/10/18 [History] Follow up Appointment(s)/Referral(s): None,Stated [Primary Care Provider] - 1-2 days Mat Eckert Jr, DO [Doctor of Osteopathic Medicine] - 1 Week Tyrese Valdes MD [STAFF PHYSICIAN] - 2 Weeks Discharge Disposition: HOME SELF-CARE
[2018-05-13 15:25] VITALS: BP 105/74; PULSE 49; TEMP 97.6
== END 2018-05-13 15:41 | disposition home or self-care (01) | DRG 69 ==
LOC: EC 19:47 → 6SEL 23:17 → OBSVTOIN 23:17 → 6SEL 05-12 10:47
PROVIDERS: ADMIT Family Medicine; ATTEND Family Medicine
DX: G45.9 Transient cerebral ischemic attack, unspecified (principal); G81.94 Hemiplegia, unspecified affecting left nondominant side; R47.01 Aphasia; D72.829 Elevated white blood cell count, unspecified; F41.9 Anxiety disorder, unspecified; F90.9 Attention-deficit hyperactivity disorder, unspecified type; G40.909 Epilepsy, unspecified, not intractable, without status epilepticus; G89.29 Other chronic pain; I10 Essential (primary) hypertension; J45.909 Unspecified asthma, uncomplicated; M46.96 Unspecified inflammatory spondylopathy, lumbar region; Z79.02 Long term (current) use of antithrombotics/antiplatelets; Z79.891 Long term (current) use of opiate analgesic; Z80.51 Family history of malignant neoplasm of kidney; Z82.3 Family history of stroke; Z82.49 Family history of ischemic heart disease and other diseases of the circulatory system; Z86.14 Personal history of Methicillin resistant Staphylococcus aureus infection; Z86.32 Personal history of gestational diabetes; Z87.442 Personal history of urinary calculi; G43.909 Migraine, unspecified, not intractable, without status migrainosus; Z88.5 Allergy status to narcotic agent; Z88.8 Allergy status to other drugs, medicaments and biological substances; Z88.6 Allergy status to analgesic agent; Z91.041 Radiographic dye allergy status; I69.311 Memory deficit following cerebral infarction
CPT/HCPCS: 36415; 70450; 70496; 70498; 70551; 71045; 80048; 80053; 80061; 82550; 82553; 83036; 84484; 85025; 85610; 85730; 93005; 93306; 95819; 96361; 96374; 96375; 99291

== ENCOUNTER 2018-07-10 10:51 | Emergency (ER) | payer MEDICARE, OTHER ==
[2018-07-10 11:05] VITALS: TEMP 98.3
[2018-07-10] MEDS ORDERED: KETOROLAC 30 MG/ML 1 ML VIAL IVP STA (12:18)
[2018-07-10] MEDS ORDERED: ONDANSETRON 4 MG/2 ML VIAL IVP STA (12:18)
[2018-07-10] MEDS ORDERED: SODIUM CHLORIDE 0.9% 1,000 ML IV STA (12:18)
[2018-07-10] MEDS ORDERED: METOCLOPRAMIDE 5 MG/ML 2 ML VIAL IVP STA (12:19)
--- NOTE | 2018-07-10 12:21 | ED ---
General Adult HPI - General Chief complaint: Headache Stated complaint: headache, rt hand numb and tingling, Hx Stroke Source: patient Mode of arrival: ambulatory Limitations: no limitations - History of Present Illness Initial comments: Dictation was produced using [employer] dictation software. please excuse any grammatical, word or spelling errors. Chief Complaint: 37-year-old female with past medical history of TIAs presents with headache. History of Present Illness: Patient is 37-year-old female with history of TIAs presents with headache. She states that the pain starts from her neck and goes up the back of her head. Patient states she's been under more stress than usual. Patient denies any. Patient denies any pain with neck flexion or neck extension. Patient denies any constitutional symptoms. Denies any neuro deficits. Patient has had headaches like this in the past. She reports that these headaches are very similar. She does not report that this is the worse headache of her leg. She states that her symptoms are progressive. He has any vision loss or any other neuro deficits. The ROS documented in this emergency department record has been reviewed and confirmed by me. Those systems with pertinent positive or negative responses have been documented in the HPI. All other systems are other negative and/or noncontributory. - Related Data Home Medications Medication Instructions Recorded Confirmed HYDROcodone/APAP 10-325MG [[place] 1 tab PO TID 12/24/17 07/10/18 10-325] Allergies Allergy/AdvReac Type Severity Reaction Status Date / Time Iodinated Contrast- Oral and Allergy Rash/Hives Verified 07/10/18 12:42 IV Dye [Iodinated Contrast Media - IV Dye] iodine Allergy Rash/Hives Verified 07/10/18 12:42 Iodine and Iodide Containing Allergy Rash/Hives Verified 07/10/18 12:42 Produc bupropion HCl AdvReac Unknown Homicidal Verified 07/10/18 12:42 [From Wellbutrin] Ideation hydromorphone HCl AdvReac Diarrhea Verified 07/10/18 12:42 [From Dilaudid] propoxyphene napsylate AdvReac Nausea & Verified 07/10/18 12:42 [From Darvocet-N] Vomiting steroids Allergy Rash/Hives Uncoded 07/10/18 11:05 Review of Systems ROS Statement: Those systems with pertinent positive or pertinent negative responses have been documented in the HPI. ROS Other: All systems not noted in ROS Statement are negative. Past Medical History Past Medical History: Asthma, CVA/TIA, Hypertension, Seizure Disorder Additional Past Medical History / Comment(s): 11/2017 TIA or CVA (pt unsure) with resolved L sided weakness/aphasia but states still has short term memory loss, last seizure in 2017, frequent kidney infections, kidney stones she passed on her own, chronic cervical and low back pain, past fractured coccyx, gestational diabetes. History of Any Multi-Drug Resistant Organisms: MRSA Date of last positivie culture/infection: 1999,2013, 2016 MDRO Source:: right leg Past Surgical History: Appendectomy, Section, Cholecystectomy, Tonsillectomy, Tubal Ligation Additional Past Surgical History / Comment(s): Multiple ear surgeries (x15 left ear & 13 right ear) ended up with eardrum replacements, x2 Past Anesthesia/Blood Transfusion Reactions: No Reported Reaction Additional Past Anesthesia/Blood Transfusion Reaction / Comment(s): PT STATES DIFFICULTY WAKING UP. PTS FATHER ALSO HAS DIFFICULTY WAKING UP. Past Psychological History: ADD/ADHD, Anxiety Smoking Status: Never smoker Past Alcohol Use History: None Reported Past Drug Use History: None Reported - Past Family History Mother Family Medical History: Cancer Additional Family Medical History / Comment(s): KIDNEY CANCER- in 2012 at the age of 68yrs. Father Family Medical History: CVA/TIA, Myocardial Infarction ([place]) Additional Family Medical History / Comment(s): Father had 8 CVAs and 2 MIs. His first VA was at age 69yrs and 2nd VA was at age 71yrs. He has a pacemaker. He is dyslexic. General Exam - General Exam Comments Initial Comments: PHYSICAL EXAM: General Impression: Alert and oriented x3, not in acute distress HEENT: Normocephalic atraumatic, extra-ocular movements intact, pupils equal and reactive to light bilaterally, mucous membranes moist, poor dentition Cardiovascular: Heart regular rate and rhythm, S1&S2 audible, no murmurs, rubs or gallops Chest: Lungs clear to auscultation bilaterally, no rhonchi, no wheeze, no rales Abdomen: Bowel sounds present, abdomen soft, non-tender, non-distended, no organomegaly Musculoskeletal: Pulses present and equal in all extremities, no peripheral edema Motor: Power 5/5 bilaterally, no focal deficits noted Neurological: CN II-XII grossly intact, no focal motor or sensory deficits noted , negative Kernig's, negative Brudzinski sign. Skin: Intact with no visualized rashes Psych: Normal affect and mood Limitations: no limitations Course Vital Signs 07/10/18 11:04 Temperature 98.3 F Pulse Rate 68 Respiratory 20 Rate Blood Pressure 129/80 O2 Sat by Pulse 97 Oximetry Medical Decision Making - Medical Decision Making ED course: 37-year-old female clinical presentation consistent with tension headache. Vital signs upon arrival are within acceptable limits. Patient is well-appearing. She is given headache cocktail and intravenous fluids. Patient reevaluated after headache cocktail fluids. She reports feeling much better. Patient requesting food. Patient tolerating by mouth at bedside. She advised follow-up with primary care physician upon discharge. Patient understandable agreeable to disposition. Disposition Clinical Impression: Headache Disposition: HOME SELF-CARE Condition: Good Instructions: Acute Headache (ED) Is patient prescribed a controlled substance at d/c from ED?: No Referrals: Rogerio Merino MD [Primary Care Provider] - 1-2 days Time of Disposition: 13:24
[2018-07-10 14:13] VITALS: BP 118/90; PULSE 69; RESP 18
== END 2018-07-10 14:12 | disposition home or self-care (01) ==
LOC: EC 10:51
DX: R51 Headache (principal); M54.2 Cervicalgia; F43.9 Reaction to severe stress, unspecified; G89.29 Other chronic pain; Z88.5 Allergy status to narcotic agent; Z88.8 Allergy status to other drugs, medicaments and biological substances; Z91.041 Radiographic dye allergy status; Z91.048 Other nonmedicinal substance allergy status; Z79.891 Long term (current) use of opiate analgesic; Z86.14 Personal history of Methicillin resistant Staphylococcus aureus infection
CPT/HCPCS: 99283; 96374; 96375 ×2; 96361; J2765; J2405; J1885

== ENCOUNTER 2018-07-11 12:30 | Emergency (ER) | payer MEDICARE, OTHER ==
--- NOTE | 2018-07-11 13:19 | ED ---
General Adult HPI - General Chief complaint: Chest Pain Stated complaint: chest pain Source: patient Mode of arrival: EMS Limitations: no limitations - History of Present Illness Initial comments: Dictation was produced using [employer] dictation software. please excuse any grammatical, word or spelling errors. Chief Complaint: 37-year-old feel presents with chest pain. History of Present Illness: Patient is a 37-year-old female who is well-known to emergency department for multiple visitations. She states she was getting a piece of his last appetite today when after she swallowed she noticed immediate pain in her chest. She states she spit it back up and swallowed it. She however states that she does have some persistent pain. Patient denies any drooling. Denies any shortness of breath. Denies any coughing. She does report that she feels as though there is something still stuck in her throat. The ROS documented in this emergency department record has been reviewed and confirmed by me. Those systems with pertinent positive or negative responses have been documented in the HPI. All other systems are other negative and/or noncontributory. - Related Data Home Medications Medication Instructions Recorded Confirmed HYDROcodone/APAP 10-325MG [[place] 1 tab PO TID 12/24/17 07/11/18 10-325] Allergies Allergy/AdvReac Type Severity Reaction Status Date / Time Iodinated Contrast- Oral and Allergy Rash/Hives Verified 07/11/18 12:55 IV Dye [Iodinated Contrast Media - IV Dye] iodine Allergy Rash/Hives Verified 07/11/18 12:55 Iodine and Iodide Containing Allergy Rash/Hives Verified 07/11/18 12:55 Produc bupropion HCl AdvReac Unknown Homicidal Verified 07/11/18 12:55 [From Wellbutrin] Ideation hydromorphone HCl AdvReac Diarrhea Verified 07/11/18 12:55 [From Dilaudid] propoxyphene napsylate AdvReac Nausea & Verified 07/11/18 12:55 [From Darvocet-N] Vomiting steroids Allergy Rash/Hives Uncoded 07/10/18 11:05 Review of Systems ROS Statement: Those systems with pertinent positive or pertinent negative responses have been documented in the HPI. ROS Other: All systems not noted in ROS Statement are negative. Past Medical History Past Medical History: Asthma, CVA/TIA, Hypertension, Seizure Disorder Additional Past Medical History / Comment(s): 11/2017 TIA or CVA (pt unsure) with resolved L sided weakness/aphasia but states still has short term memory loss, last seizure in 2017, frequent kidney infections, kidney stones she passed on her own, chronic cervical and low back pain, past fractured coccyx, gestational diabetes. History of Any Multi-Drug Resistant Organisms: MRSA Date of last positivie culture/infection: 1999,2013, 2016 MDRO Source:: right leg Past Surgical History: Appendectomy, Section, Cholecystectomy, Tonsillectomy, Tubal Ligation Additional Past Surgical History / Comment(s): Multiple ear surgeries (x15 left ear & 13 right ear) ended up with eardrum replacements, x2 Past Anesthesia/Blood Transfusion Reactions: No Reported Reaction Additional Past Anesthesia/Blood Transfusion Reaction / Comment(s): PT STATES DIFFICULTY WAKING UP. PTS FATHER ALSO HAS DIFFICULTY WAKING UP. Past Psychological History: ADD/ADHD, Anxiety Smoking Status: Never smoker Past Alcohol Use History: None Reported Past Drug Use History: None Reported - Past Family History Mother Family Medical History: Cancer Additional Family Medical History / Comment(s): KIDNEY CANCER- in 2012 at the age of 68yrs. Father Family Medical History: CVA/TIA, Myocardial Infarction ([place]) Additional Family Medical History / Comment(s): Father had 8 CVAs and 2 MIs. His first SD was at age 69yrs and 2nd SD was at age 71yrs. He has a pacemaker. He is dyslexic. General Exam - General Exam Comments Initial Comments: PHYSICAL EXAM: General Impression: Alert and oriented x3, acute distress secondary to pain HEENT: Normocephalic atraumatic, extra-ocular movements intact, pupils equal and reactive to light bilaterally, mucous membranes moist. Cardiovascular: Heart regular rate and rhythm, S1&S2 audible, no murmurs, rubs or gallops Chest: Lungs clear to auscultation bilaterally, no rhonchi, no wheeze, no rales Abdomen: Bowel sounds present, abdomen soft, non-tender, non-distended, no organomegaly Musculoskeletal: Pulses present and equal in all extremities, no peripheral edema Motor: Power 5/5 bilaterally, no focal deficits noted Neurological: CN II-XII grossly intact, no focal motor or sensory deficits noted Skin: Intact with no visualized rashes Psych: Normal affect and mood Limitations: no limitations Course Vital Signs 07/11/18 07/11/18 07/11/18 13:27 13:28 13:29 Pulse Rate Respiratory Rate Blood Pressure O2 Sat by Pulse 99 98 99 Oximetry 07/11/18 07/11/18 07/11/18 13:30 13:31 13:32 Pulse Rate Respiratory Rate Blood Pressure O2 Sat by Pulse 100 100 99 Oximetry 07/11/18 07/11/18 07/11/18 13:33 13:34 13:35 Pulse Rate Respiratory Rate Blood Pressure O2 Sat by Pulse 99 98 100 Oximetry 07/11/18 07/11/18 07/11/18 13:36 13:37 13:38 Pulse Rate Respiratory Rate Blood Pressure O2 Sat by Pulse 100 100 99 Oximetry 07/11/18 07/11/18 07/11/18 13:39 13:40 13:41 Pulse Rate Respiratory Rate Blood Pressure O2 Sat by Pulse 100 100 99 Oximetry 07/11/18 07/11/18 07/11/18 13:42 13:43 13:44 Pulse Rate Respiratory Rate Blood Pressure O2 Sat by Pulse 99 99 98 Oximetry 07/11/18 07/11/18 07/11/18 13:45 13:46 13:47 Pulse Rate Respiratory Rate Blood Pressure O2 Sat by Pulse 96 99 99 Oximetry 07/11/18 07/11/18 07/11/18 13:48 13:49 13:50 Pulse Rate Respiratory Rate Blood Pressure O2 Sat by Pulse 100 100 100 Oximetry 07/11/18 07/11/18 07/11/18 13:51 13:52 13:53 Pulse Rate Respiratory Rate Blood Pressure O2 Sat by Pulse 100 100 99 Oximetry 07/11/18 07/11/18 07/11/18 13:54 13:55 13:56 Pulse Rate Respiratory Rate Blood Pressure O2 Sat by Pulse 99 96 98 Oximetry 07/11/18 07/11/18 07/11/18 13:57 13:58 13:59 Pulse Rate Respiratory Rate Blood Pressure O2 Sat by Pulse 98 97 99 Oximetry 07/11/18 14:01 Pulse Rate 66 Respiratory 16 Rate Blood Pressure 141/109 O2 Sat by Pulse 99 Oximetry Medical Decision Making - Medical Decision Making ED course: 37-year-old female presents with chest pain during swallowing a piece of apple. Vital signs upon arrival are within normal limits. Patient reports that she feels like she put some of it out and swallowed however she does feel that there is some residual pieces that her chest. X-ray of the chest and C-spine were obtained. Patient was observed in emergency department for several hours. Reevaluation patient saying that her symptoms are improved however she still having some chest pain. Patient feels as though there is nothing stuck or no foreign body sensation in her chest. Patient given 1 Percocet pill and discharged per she is told to return to the emergency Department with any worsening symptoms. Patient is stable medical condition. She appears comfortable. Told to follow primary care physician upon discharge. Patient does take pain medicines at home that she is instructed to take for her chest pain. Disposition Clinical Impression: Chest pain Disposition: HOME SELF-CARE Instructions: Chest Pain (ED) Is patient prescribed a controlled substance at d/c from ED?: No Referrals: Rogerio Merino MD [Primary Care Provider] - 1-2 days Time of Disposition: 15:43
--- NOTE | 2018-07-11 14:37 | XR ---
EXAMINATION TYPE: XR cervical spine comp DATE OF EXAM: 07/11/2018 COMPARISON: 12/24/2017 HISTORY: Pain TECHNIQUE: Four views are submitted. FINDINGS: The odontoid is intact. There are no compression deformities. The prevertebral soft tissue structur es are within normal limits. Calcification or ossification along the anterior longitudinal ligament at C5-C6 is stable. There is loss of normal cervical lordosis which is stable. IMPRESSION: 1. No acute process. If symptoms persist consider MRI.
--- NOTE | 2018-07-11 14:39 | XR ---
EXAMINATION TYPE: XR chest 2V DATE OF EXAM: 07/11/2018 COMPARISON: 05/11/2018 TECHNIQUE: PA and lateral views submitted. HISTORY: Pain FINDINGS: The lungs are clear and there is no pneumothorax, pleural effusion, or focal pneumonia. Heart size stable at the upper limits of normal. No overt failure. Surgical clips in the upper abdomen. Pectus d eformity suggested correlate clinically. IMPRESSION: 1. No acute process.
[2018-07-11] MEDS ORDERED: oxyCODONE-APAP 10-325MG 1 EACH TAB PO STA (15:41)
[2018-07-11 15:58] VITALS: BP 125/79; PULSE 77
[2018-07-11 15:59] VITALS: TEMP 98.2
[2018-07-11 16:00] VITALS: RESP 18
== END 2018-07-11 16:05 | disposition home or self-care (01) ==
LOC: EC 12:30
DX: R07.9 Chest pain, unspecified (principal); M54.2 Cervicalgia; M54.5 Low back pain; G89.29 Other chronic pain; Z86.14 Personal history of Methicillin resistant Staphylococcus aureus infection; Z86.73 Personal history of transient ischemic attack (TIA), and cerebral infarction without residual deficits; Z88.5 Allergy status to narcotic agent; Z88.8 Allergy status to other drugs, medicaments and biological substances; Z91.041 Radiographic dye allergy status; Z91.048 Other nonmedicinal substance allergy status; Z79.891 Long term (current) use of opiate analgesic
CPT/HCPCS: 71046; 72050; 93005; 99285

== ENCOUNTER 2018-08-05 18:14 | Emergency (ER) | payer MEDICARE, OTHER ==
[2018-08-05 18:28] VITALS: RESP 16
[2018-08-05] MEDS ORDERED: SODIUM CHLORIDE 0.9% 1,000 ML IV STA ×2 (19:35)
--- NOTE | 2018-08-05 19:37 | ED ---
Chest Pain HPI - General Source: patient, RN notes reviewed, old records reviewed Mode of arrival: ambulatory Limitations: no limitations <Lata Bustos - Last Filed: 08/05/18 22:47> <Kenyatta Bustillos P - Last Filed: 08/06/18 23:46> - General Chief Complaint: Chest Pain Stated Complaint: chest pain, left side numbness, headache Time Seen by Provider: 08/05/18 19:20 - History of Present Illness Initial Comments: Patient is a 37-year-old female presents emergency department today with 3 days of headache, neck pain. She complains of left-sided numbness, and complains of chest pain. Patient reports that she's had a history of TIAs in the past. Patient at this time reports that she couldn't deal with pain and headache any warts that she decided to be seen at this time. Patient reports that she's had no fevers or chills. No nausea or vomiting or abdominal pain. (Lata Bustos) - Related Data Home Medications Medication Instructions Recorded Confirmed HYDROcodone/APAP 10-325MG [Lynn 1 tab PO TID 12/24/17 07/11/18 10-325] Allergies Allergy/AdvReac Type Severity Reaction Status Date / Time Iodinated Contrast- Oral and Allergy Rash/Hives Verified 08/05/18 18:28 IV Dye [Iodinated Contrast Media - IV Dye] iodine Allergy Rash/Hives Verified 08/05/18 18:28 Iodine and Iodide Containing Allergy Rash/Hives Verified 08/05/18 18:28 Produc bupropion HCl AdvReac Unknown Homicidal Verified 08/05/18 18:28 [From Wellbutrin] Ideation hydromorphone HCl AdvReac Diarrhea Verified 08/05/18 18:28 [From Dilaudid] propoxyphene napsylate AdvReac Nausea & Verified 08/05/18 18:28 [From Darvocet-N] Vomiting steroids Allergy Rash/Hives Uncoded 08/05/18 18:28 Review of Systems ROS Other: All systems not noted in ROS Statement are negative. <Lata Bustos - Last Filed: 08/05/18 22:47> ROS Other: All systems not noted in ROS Statement are negative. <Kenyatta Bustillos P - Last Filed: 08/06/18 23:46> ROS Statement: Those systems with pertinent positive or pertinent negative responses have been documented in the HPI. EKG Findings - EKG Comments: EKG Findings:: EKG shows normal sinus rhythm normal ECG. Ventricular rate of 75 bpm. Was 158. QRS ration 88. QTQTC 36/431 ms. <Lata Bustos - Last Filed: 08/05/18 22:47> Past Medical History Past Medical History: Asthma, CVA/TIA, Hypertension, Seizure Disorder Additional Past Medical History / Comment(s): 11/2017 TIA or CVA (pt unsure) with resolved L sided weakness/aphasia but states still has short term memory loss, last seizure in 2016, frequent kidney infections, kidney stones she passed on her own, chronic cervical and low back pain, past fractured coccyx, gestational diabetes. History of Any Multi-Drug Resistant Organisms: MRSA Date of last positivie culture/infection: 1999,2013, 2016 MDRO Source:: right leg Past Surgical History: Appendectomy, Section, Cholecystectomy, Tonsillectomy, Tubal Ligation Additional Past Surgical History / Comment(s): Multiple ear surgeries (x15 left ear & 13 right ear) ended up with eardrum replacements, x2 Past Anesthesia/Blood Transfusion Reactions: No Reported Reaction Additional Past Anesthesia/Blood Transfusion Reaction / Comment(s): PT STATES DIFFICULTY WAKING UP. PTS FATHER ALSO HAS DIFFICULTY WAKING UP. Past Psychological History: ADD/ADHD, Anxiety Smoking Status: Never smoker Past Alcohol Use History: None Reported Past Drug Use History: None Reported - Past Family History Mother Family Medical History: Cancer Additional Family Medical History / Comment(s): KIDNEY CANCER- in 2012 at the age of 68yrs. Father Family Medical History: CVA/TIA, Myocardial Infarction ([place]) Additional Family Medical History / Comment(s): Father had 8 CVAs and 2 MIs. His first MA was at age 69yrs and 2nd MA was at age 71yrs. He has a pacemaker. He is dyslexic. <Lata Bustos - Last Filed: 08/05/18 22:47> General Exam Limitations: no limitations General appearance: alert, in no apparent distress Head exam: Present: atraumatic, normocephalic, normal inspection Eye exam: Present: normal appearance, PERRL, EOMI. Absent: scleral icterus, conjunctival injection, periorbital swelling ENT exam: Present: normal exam, mucous membranes moist Neck exam: Present: normal inspection. Absent: tenderness, meningismus, lymphadenopathy Respiratory exam: Present: normal lung sounds bilaterally. Absent: respiratory distress, wheezes, rales, rhonchi, stridor Cardiovascular Exam: Present: regular rate, normal rhythm, normal heart sounds. Absent: systolic murmur, diastolic murmur, rubs, gallop, clicks GI/Abdominal exam: Present: soft, normal bowel sounds. Absent: distended, tenderness, guarding, rebound, rigid Back exam: Present: normal inspection Neurological exam: Present: alert, oriented X3, CN II-XII intact Psychiatric exam: Present: normal affect, normal mood Skin exam: Present: warm, dry, intact, normal color. Absent: rash <Lata Bustos - Last Filed: 08/05/18 22:47> <Kenyatta Bustillos P - Last Filed: 08/06/18 23:46> - General Exam Comments Initial Comments: 37-year-old female. (Lata Bustos) Vital Signs 08/05/18 08/05/18 08/05/18 18:23 20:09 21:47 Temperature 98.6 F Pulse Rate 80 75 66 Respiratory 16 16 16 Rate Blood Pressure 126/80 115/69 135/82 O2 Sat by Pulse 99 99 99 Oximetry 08/05/18 22:34 Temperature 98.4 F Pulse Rate 70 Respiratory 16 Rate Blood Pressure 137/84 O2 Sat by Pulse 96 Oximetry Chest Pain MDM <Lata Bustos - Last Filed: 08/05/18 22:47> <Kenyatta Bustillos P - Last Filed: 08/06/18 23:46> - MDM 37-year-old female presents today with chief complaint of headache and left- sided numbness and tingling weakness, and chest pain for 3 days. Patient was evaluated by her PCP earlier this week. At this time Patient has no focal neurological deficits. She appears in well in no acute distress. Pupils are psychosomatic relation to her symptoms. EKG was normal. Blood work was negative for any acute process. It would complete a computed tomography scan of her brain which is negative for any acute process. At this time Patient has been advised and close follow-up with primary care provider. Return parameters were discussed. (Lata Bustos) I personally saw and evaluated the patient, patient complained to me of left arm and leg tingling. She reports that this is been intermittent and progressively worsening. She did see her primary care physician for this earlier in the week. Patient care was discussed with Dr. Eckert is very familiar with the patient, she he did evaluate the patient earlier in the week. At this time is comfortable with the patient being discharged home for outpatient evaluation. The patient has undergone very thorough evaluation for her transient numbness in the past, she has a MRI of the brain with no acute abnormalities noted. She does have a neurologist she also has a close relationship with. (Kenyatta Bustillos) Disposition Is patient prescribed a controlled substance at d/c from ED?: No Time of Disposition: 22:23 <Lata Bustos - Last Filed: 08/05/18 22:47> <Kenyatta Bustillos - Last Filed: 08/06/18 23:46> Clinical Impression: Chest pain, Paresthesia Disposition: HOME SELF-CARE Condition: Good Instructions: Chest Pain (ED) Additional Instructions: Advised to follow-up with Dr. Webster or Dr. Merino on Tuesday. Take your medication as prescribed. Follow-up with neurology. Return to the emergency department if any alarming signs or symptoms occur. Referrals: Rogerio Merino MD [Primary Care Provider] - 1-2 days
--- NOTE | 2018-08-05 20:24 | XR ---
EXAMINATION TYPE: XR chest 2V DATE OF EXAM: 08/05/2018 COMPARISON: Chest radiograph 07/11/2018 HISTORY: Chest pain and left arm pain TECHNIQUE: Frontal and lateral views of the chest are obtained. FINDINGS: There is no focal air space opacity, pleural effusion, or pneumothorax seen. The cardiac silhouette size is within normal limits. The osseous structures are intact. IMPRESSION: No acute cardiopulmonary process.
[2018-08-05 20:47] LABS: Basophils % (A) 0 %; Eosinophils # (A) 0.3 k/uL (0-0.7); Eosinophils % (A) 3 %; HGB 11.7 gm/dL (11.4-16.0); Lymphocytes # (A) 2.2 k/uL (1.0-4.8); Lymphocytes % (A) 19 %; MCH 27.9 pg (25.0-35.0); MCHC 33.4 g/dL (31.0-37.0); MCV 83.6 fL (80.0-100.0); Mean Platelet Volume 7.5; Monocytes # (A) 0.4 k/uL (0-1.0); Monocytes % (A) 4 %; Neutrophils # (A) 8.4 k/uL (1.3-7.7); Neutrophils % (A) 73 %; Platelet Count 314 k/uL (150-450); RBC 4.19 m/uL (3.80-5.40); RDW 13.3 % (11.5-15.5); WBC 11.5 k/uL (3.8-10.6)
[2018-08-05 20:48] LABS: INR 0.9 (<1.2); Partial Thromboplastin Time 23.6 sec (22.0-30.0); Prothrombin Time 9.4 sec (9.0-12.0)
[2018-08-05 20:49] LABS: ALT 23 U/L (9-52); AST 14 U/L (14-36); Albumin 3.5 g/dL (3.5-5.0); Alkaline Phosphatase 53 U/L (38-126); Anion Gap 4 mmol/L; Blood Urea Nitrogen 14 mg/dL (7-17); Calcium 9.4 mg/dL (8.4-10.2); Carbon Dioxide 31 mmol/L (22-30); Chloride 104 mmol/L (98-107); Creatine Kinase 32 U/L (30-135); Glucose 94 mg/dL (74-99); Lipase 76 U/L (23-300); Magnesium 1.8 mg/dL (1.6-2.3); Potassium 4.6 mmol/L (3.5-5.1); Sodium 139 mmol/L (137-145); Total Bilirubin 0.2 mg/dL (0.2-1.3); Total Protein 6.5 g/dL (6.3-8.2)
--- NOTE | 2018-08-05 20:50 | CT ---
EXAMINATION TYPE: CT brain wo con DATE OF EXAM: 08/05/2018 COMPARISON: CT brain 05/11/2018 HISTORY: Headache and visual changes. CT DLP: 1200.4 mGycm. Automated Exposure Control for Dose Reduction was Utilized. TECHNIQUE: CT scan of the head is performed without contrast. FINDINGS: There is no acute intracranial hemorrhage, mass effect, or midline shift identified. The ventricles and sulci are within normal limits in size. The globes are intact and the visualized sin uses are clear. IMPRESSION: No acute intracranial process. No significant interval change.
[2018-08-05 21:01] LABS: Creatine Kinase MB 0.3 ng/mL (0.0-2.4); Troponin I <0.012 ng/mL (0.000-0.034)
[2018-08-05] MEDS ORDERED: ORPHENADRINE 30 MG/ML 2 ML VIAL IVP STA (21:15)
[2018-08-05] MEDS ORDERED: KETOROLAC 30 MG/ML 1 ML VIAL IVP STA (21:15)
[2018-08-05 22:35] VITALS: BP 137/84; PULSE 70; TEMP 98.4
== END 2018-08-05 22:35 | disposition home or self-care (01) ==
LOC: EC 18:14
DX: R07.9 Chest pain, unspecified (principal); R20.2 Paresthesia of skin; R20.0 Anesthesia of skin; M54.2 Cervicalgia; R51 Headache; J45.909 Unspecified asthma, uncomplicated; Z86.73 Personal history of transient ischemic attack (TIA), and cerebral infarction without residual deficits; Z86.14 Personal history of Methicillin resistant Staphylococcus aureus infection; Z82.49 Family history of ischemic heart disease and other diseases of the circulatory system; Z79.891 Long term (current) use of opiate analgesic; Z91.041 Radiographic dye allergy status; Z91.048 Other nonmedicinal substance allergy status; Z88.8 Allergy status to other drugs, medicaments and biological substances; Z88.5 Allergy status to narcotic agent
CPT/HCPCS: 36415; 93005; 80053; 82550; 82553; 83690; 83735; 84484; 85025; 85610; 85730; 71046; 70450; 99285; 96374; 96375; 96361 ×3; J2360; J1885

== ENCOUNTER 2018-08-29 10:42 | Emergency (ER) | payer MEDICARE, OTHER ==
[2018-08-29] MEDS ORDERED: LIDOCAINE VISCOUS 2% 15 ML CUP MUCOUS MEM ONE (11:03)
[2018-08-29] MEDS ORDERED: ONDANSETRON 4 MG ODT STARTER PACK 2 TAB BTL PO STA (12:01)
[2018-08-29] MEDS ORDERED: IBUPROFEN 800 MG TAB PO STA (12:02)
[2018-08-29] MEDS ORDERED: PENICILLIN VK 500MG STARTER 4 TAB BTL PO STA (12:02)
[2018-08-29] MEDS ORDERED: HYDROcodone/APAP 5-325MG 1 EACH TAB PO STA (12:02)
--- NOTE | 2018-08-29 12:05 | ED ---
General Adult HPI - General Chief complaint: Dental/Oral Stated complaint: dental pain Time Seen by Provider: 08/29/18 10:48 Source: patient, RN notes reviewed Mode of arrival: ambulatory Limitations: no limitations - History of Present Illness Initial comments: 37-year-old female presents to the emergency department for a chief complaint of dental pain times one day. Patient states this started last night. She states she noticed the swelling in her face this morning. Patient states it is somewhat painful to open her jaw but is able to do so. Patient denies any sublingual pain or swelling. She denies any pain or stiffness in the neck. She does admit to mild nausea. She states she has tried Orajel but it is not helping. She has not taken Motrin or Tylenol. Patient does have a dentist whom she contacted earlier today and they told her to come to the emergency department.nPatient has no other complaints at this time including shortness of breath, chest pain, abdominal pain, nausea or vomiting, headache, or visual changes. - Related Data Home Medications Medication Instructions Recorded Confirmed HYDROcodone/APAP 10-325MG [Cambria 1 tab PO TID 12/24/17 08/29/18 10-325] Ibuprofen [Motrin] 800 mg PO TID 08/29/18 08/29/18 Previous Rx's Medication Instructions Recorded Ibuprofen [Motrin] 600 mg PO Q6HR PRN #20 tab 08/29/18 Penicillin V Potassium [Pen Vee K] 500 mg PO Q6H 10 Days tablet 08/29/18 Allergies Allergy/AdvReac Type Severity Reaction Status Date / Time Iodinated Contrast- Oral and Allergy Rash/Hives Verified 08/29/18 11:13 IV Dye [Iodinated Contrast Media - IV Dye] iodine Allergy Rash/Hives Verified 08/29/18 11:13 Iodine and Iodide Containing Allergy Rash/Hives Verified 08/29/18 11:13 Produc bupropion HCl AdvReac Unknown Homicidal Verified 08/29/18 11:13 [From Wellbutrin] Ideation hydromorphone HCl AdvReac Diarrhea Verified 08/29/18 11:13 [From Dilaudid] propoxyphene napsylate AdvReac Nausea & Verified 08/29/18 11:13 [From Darvocet-N] Vomiting steroids Allergy Rash/Hives Uncoded 08/05/18 18:28 Review of Systems ROS Statement: Those systems with pertinent positive or pertinent negative responses have been documented in the HPI. ROS Other: All systems not noted in ROS Statement are negative. Past Medical History Past Medical History: Asthma, CVA/TIA, Hypertension, Seizure Disorder Additional Past Medical History / Comment(s): 11/2017 TIA or CVA (pt unsure) with resolved L sided weakness/aphasia but states still has short term memory loss, last seizure in 2016, frequent kidney infections, kidney stones she passed on her own, chronic cervical and low back pain, past fractured coccyx, gestational diabetes. History of Any Multi-Drug Resistant Organisms: MRSA Date of last positivie culture/infection: 1999,2013, 2016 MDRO Source:: right leg Past Surgical History: Appendectomy, Section, Cholecystectomy, Tonsillectomy, Tubal Ligation Additional Past Surgical History / Comment(s): Multiple ear surgeries (x15 left ear & 13 right ear) ended up with eardrum replacements, x2 Past Anesthesia/Blood Transfusion Reactions: No Reported Reaction Additional Past Anesthesia/Blood Transfusion Reaction / Comment(s): PT STATES DIFFICULTY WAKING UP. PTS FATHER ALSO HAS DIFFICULTY WAKING UP. Past Psychological History: ADD/ADHD, Anxiety Smoking Status: Never smoker Past Alcohol Use History: None Reported Past Drug Use History: None Reported - Past Family History Mother Family Medical History: Cancer Additional Family Medical History / Comment(s): KIDNEY CANCER- in 2012 at the age of 68yrs. Father Family Medical History: CVA/TIA, Myocardial Infarction ([place]) Additional Family Medical History / Comment(s): Father had 8 CVAs and 2 MIs. His first GA was at age 69yrs and 2nd GA was at age 71yrs. He has a pacemaker. He is dyslexic. General Exam Limitations: no limitations General appearance: alert, in no apparent distress Head exam: Present: atraumatic, normocephalic, normal inspection Eye exam: Present: normal appearance, PERRL, EOMI. Absent: scleral icterus, conjunctival injection, periorbital swelling ENT exam: Present: other (There is mild edema noted to the right side of the face along the upper jaw). Absent: normal oropharynx (Generally poor dentition , multiple teeth missing. Patient has pain to palpation of tooth 3. Possible small abscess that was drained with 18-gauge, and no purulent material expelled. ) Neck exam: Present: normal inspection. Absent: tenderness, meningismus, lymphadenopathy Respiratory exam: Present: normal lung sounds bilaterally. Absent: respiratory distress, wheezes, rales, rhonchi, stridor Cardiovascular Exam: Present: regular rate, normal rhythm, normal heart sounds. Absent: systolic murmur, diastolic murmur, rubs, gallop, clicks Neurological exam: Present: alert, oriented X3, CN II-XII intact Psychiatric exam: Present: normal affect, normal mood Course Vital Signs 08/29/18 08/29/18 10:44 12:16 Temperature 99.5 F 98.9 F Pulse Rate 94 69 Respiratory 24 18 Rate Blood Pressure 153/98 144/62 O2 Sat by Pulse 99 99 Oximetry Medical Decision Making - Medical Decision Making 37 year old female presents to the emergency department for a chief complaint of dental pain times one day. Patient has mild edema noted to the right side of the face without erythema. There is possibly a small abscess above the tooth to that was bothering her. I did attempt to drain this however no purulent material was expelled. Likely not an abscess. Patient denies any neck stiffness has full range motion of the neck. She is able to open the jaw. No sublingual edema on exam and patient denies sublingual pain or swelling. No fevers or chills. Patient is afebrile here in the emergency department. Patient was given Zofran as she is somewhat nauseous. She was also given Motrin and Cambria. He is given prescriptions for Motrin and penicillin. She will follow-up with her dentist in 1-2 days and return if she has any worsening symptoms which were discussed with her. Disposition Clinical Impression: Pain, dental Disposition: HOME SELF-CARE Condition: Good Instructions: Toothache (ED) Additional Instructions: Take antibiotic as directed. Take Motrin and Tylenol for pain. Apply ice to the area for relief. Follow-up with your dentist later today. Return to the emergency department if you have any worsening symptoms. Prescriptions: Ibuprofen [Motrin] 600 mg PO Q6HR PRN #20 tab PRN Reason: Pain Penicillin V Potassium [Pen Vee K] 500 mg PO Q6H 10 Days tablet Is patient prescribed a controlled substance at d/c from ED?: No Referrals: Rogerio Merino MD [Primary Care Provider] - 1-2 days Time of Disposition: 12:03
[2018-08-29 12:17] VITALS: BP 144/62; PULSE 69; RESP 18; TEMP 98.9
== END 2018-08-29 12:18 | disposition home or self-care (01) ==
LOC: EC 10:42
DX: K08.89 Other specified disorders of teeth and supporting structures (principal); R11.0 Nausea; R60.0 Localized edema; K08.409 Partial loss of teeth, unspecified cause, unspecified class; I69.311 Memory deficit following cerebral infarction; G89.29 Other chronic pain; Z88.5 Allergy status to narcotic agent; Z88.8 Allergy status to other drugs, medicaments and biological substances; Z91.041 Radiographic dye allergy status; Z91.048 Other nonmedicinal substance allergy status; Z79.1 Long term (current) use of non-steroidal anti-inflammatories (NSAID); Z79.891 Long term (current) use of opiate analgesic; Z86.14 Personal history of Methicillin resistant Staphylococcus aureus infection; Z96.29 Presence of other otological and audiological implants
CPT/HCPCS: 99283; 41800; S0119

== ENCOUNTER 2018-10-17 13:36 | Emergency (ER) | payer MEDICARE, OTHER ==
[2018-10-17 13:49] VITALS: RESP 18
[2018-10-17] MEDS ORDERED: SODIUM CHLORIDE 0.9% 1,000 ML IV STA (14:43)
[2018-10-17] MEDS ORDERED: diphenhydrAMINE 50 MG/ML 1 ML VIAL IVP STA (14:44)
[2018-10-17] MEDS ORDERED: methylPREDNISolone SOD SUCCI 125 MG/2 ML VIAL IV STA (14:44)
[2018-10-17] MEDS ORDERED: METOCLOPRAMIDE 5 MG/ML 2 ML VIAL IVP STA (14:44)
[2018-10-17] MEDS ORDERED: ACETAMINOPHEN TAB 325 MG TAB PO STA (14:44)
[2018-10-17] MEDS ORDERED: FAMOTIDINE 20 MG/2 ML VIAL IV STA (14:47)
--- NOTE | 2018-10-17 14:52 | ED ---
General Adult HPI - General Chief complaint: Abdominal Pain Stated complaint: OVARY PAIN Time Seen by Provider: 10/17/18 14:34 Source: patient, RN notes reviewed, old records reviewed Mode of arrival: ambulatory Limitations: no limitations - History of Present Illness Initial comments: 38-year-old female patient past medical history of chronic back pain, TIA, presents to ED with right adnexal pain, right lower quadrant pain. Patient reports that she has had right adnexal pain and "uterus" pain for approximately 4 days. Patient underwent an ultrasound ordered by her primary care provider approximately 1.5 hours ago. Patient reports that due to the pain she is experiencing she was recommended to present to the ED by the control room technician. Patient denies any other symptoms. Patient denies any dysuria, patient denies concern for STI and states that she is not sexually active. Patient denies nausea vomiting diarrhea, chest pain, shortness of breath. Patient states that she cannot be secondary to a tubal ligation procedure. Systemic: Pt denies fatigue, myalgia, fever/chills, rash. Pt denies weakness, night sweats, weight loss. Neuro: Pt denies headache, visual disturbances, syncope or pre-syncope. HEENT: Pt denies ocular discharge or irritation, otalgia, rhinorrhea, pharyngitis or notable lymphadenopathy. Cardiopulmonary: Pt denies chest pain, SOB, heart palpitations, dyspnea on exertion. Abdominal/GI: Pt denies n/v/d. : Pt denies dysuria, burning w/ urination, frequency/urgency. Denies new onset urinary or bowel incontinence. MSK: Pt denies myalgia, loss of strength or function in extremities. Neuro: Pt denies new onset weakness, paresthesias. - Related Data Home Medications Medication Instructions Recorded Confirmed HYDROcodone/APAP 10-325MG [[place] 1 tab PO TID 12/24/17 10/17/18 10-325] Allergies Allergy/AdvReac Type Severity Reaction Status Date / Time Iodinated Contrast- Oral and Allergy Rash/Hives Verified 10/17/18 14:25 IV Dye [Iodinated Contrast Media - IV Dye] iodine Allergy Rash/Hives Verified 10/17/18 14:25 Iodine and Iodide Containing Allergy Rash/Hives Verified 10/17/18 14:25 Produc bupropion HCl AdvReac Unknown Homicidal Verified 10/17/18 14:25 [From Wellbutrin] Ideation hydromorphone HCl AdvReac Diarrhea Verified 10/17/18 14:25 [From Dilaudid] propoxyphene napsylate AdvReac Nausea & Verified 10/17/18 14:25 [From Darvocet-N] Vomiting steroids Allergy Rash/Hives Uncoded 10/17/18 13:49 Review of Systems ROS Statement: Those systems with pertinent positive or pertinent negative responses have been documented in the HPI. ROS Other: All systems not noted in ROS Statement are negative. Past Medical History Past Medical History: Asthma, CVA/TIA, Hypertension, Seizure Disorder Additional Past Medical History / Comment(s): 11/2017 TIA or CVA (pt unsure) with resolved L sided weakness/aphasia but states still has short term memory loss, last seizure in 2016, frequent kidney infections, kidney stones she passed on her own, chronic cervical and low back pain, past fractured coccyx, gestational diabetes. History of Any Multi-Drug Resistant Organisms: MRSA Date of last positivie culture/infection: 1999,2013, 2016 MDRO Source:: right leg Past Surgical History: Appendectomy, Section, Cholecystectomy, Tonsillectomy, Tubal Ligation Additional Past Surgical History / Comment(s): Multiple ear surgeries (x15 left ear & 13 right ear) ended up with eardrum replacements, x2 Past Anesthesia/Blood Transfusion Reactions: No Reported Reaction Additional Past Anesthesia/Blood Transfusion Reaction / Comment(s): PT STATES DIFFICULTY WAKING UP. PTS FATHER ALSO HAS DIFFICULTY WAKING UP. Past Psychological History: ADD/ADHD, Anxiety Smoking Status: Never smoker Past Alcohol Use History: None Reported Past Drug Use History: None Reported - Past Family History Mother Family Medical History: Cancer Additional Family Medical History / Comment(s): KIDNEY CANCER- in 2012 at the age of 68yrs. Father Family Medical History: CVA/TIA, Myocardial Infarction (MD) Additional Family Medical History / Comment(s): Father had 8 CVAs and 2 MIs. His first MD was at age 69yrs and 2nd MD was at age 71yrs. He has a pacemaker. He is dyslexic. General Exam - General Exam Comments Initial Comments: Constitutional: NAD, AOX3, Pt has pleasant affect. HEENT: NC/AT, trachea midline, neck supple, no lymphadenopathy. Posterior pharynx non erythematous, without exudates. External ears appear normal, without discharge. Mucous membranes moist. Eyes PERRLA, EOM intact. There is no scleral icterus. No pallor noted. Cardiopulmonary: RRR, no murmurs, rubs or gallops, no JVD noted. Lungs CTAB in anterior and posterior estrella. No peripheral edema. Abdominal exam: Abdomen soft and non-distended. Abdomen mildly tender to palpation in RLQ, R adenxal region. No guarding, no rigidity, no ecchymosis. Psoas and rosvings sign negative. Bowel sounds active in LLQ. No hepatosplenomegaly. Neuro: CN II-XII grossly intact. No nuchal rigidity. MSK: No posterior calf tenderness bilaterally, homans sign negative bilaterally. Posterior tibialis and radial pulse +2 bilaterally. Sensation intact in upper and lower extremities. Full active ROM in upper and lower extremities, 5/5 stregnth. Limitations: no limitations Course Vital Signs 10/17/18 13:47 Temperature 98.4 F Pulse Rate 72 Respiratory 18 Rate Blood Pressure 124/84 O2 Sat by Pulse 97 Oximetry Medical Decision Making - Medical Decision Making 38-year-old female patient past medical history of chronic back pain, TIA, presents to ED with right adnexal pain, right lower quadrant pain. Patient reports that she has had right adnexal pain and "uterus" pain for approximately 4 days. Patient underwent an ultrasound ordered by her primary care provider approximately 1.5 hours ago. Patient reports that due to the pain she is experiencing she was recommended to present to the ED by the control room technician. Patient denies any other symptoms. Patient denies any dysuria, patient denies concern for STI and states that she is not sexually active. Pt denies all other complaints. PT VSS, afebrile. Physical exam displayed: Abdomen soft and non-distended. Abdomen mildly tender to palpation in RLQ, R adenxal region. No guarding, no rigidity, no ecchymosis. Psoas and rosvings sign negative. Bowel sounds active in LLQ. No hepatosplenomegaly. Laboratory investigations revealed: WBC of 11.5, mild anemia of 10.2. CMP was nonimpressive. Hcg was negative. Transvaginal ultrasound Earlier today displayed a heterogeneous taken endometrium, and a 4.0 CM cyst on R ovary. CT abdomen pelvis displayed a 5cm R adnexal cyst, likely functional, was negative for appendicitis. Findings were explained to patient length. Patient to follow up with PCP in one to days. Patient to follow-up RN UTILIZATION MANAGEMENT [facility] in 1-2 days. Patient to ED if new symptoms develop or if condition worsens in any way. Case discussed in depth with Dr. Aquino. - Lab Data Result diagrams: 10/17/18 14:56 10/17/18 14:56 Lab Results 10/17/18 10/17/18 10/17/18 Range/Units 14:56 14:56 14:56 WBC 11.5 H (3.8-10.6) k/uL RBC 4.12 (3.80-5.40) m/uL Hgb 10.2 L (11.4-16.0) gm/dL Hct 32.7 L (34.0-46.0) % MCV 79.3 L (80.0-100.0) fL MCH 24.7 L (25.0-35.0) pg MCHC 31.1 (31.0-37.0) g/dL RDW 13.4 (11.5-15.5) % Plt Count 435 (150-450) k/uL Neutrophils % 76 % Lymphocytes % 17 % Monocytes % 4 % Eosinophils % 2 % Basophils % 0 % Neutrophils # 8.7 H (1.3-7.7) k/uL Lymphocytes # 1.9 (1.0-4.8) k/uL Monocytes # 0.5 (0-1.0) k/uL Eosinophils # 0.2 (0-0.7) k/uL Basophils # 0.0 (0-0.2) k/uL Hypochromasia Moderate Sodium 138 (137-145) mmol/L Potassium 4.6 (3.5-5.1) mmol/L Chloride 106 (98-107) mmol/L Carbon Dioxide 25 (22-30) mmol/L Anion Gap 7 mmol/L BUN 15 (7-17) mg/dL Creatinine 0.64 (0.52-1.04) mg/dL Est GFR (CKD-EPI)AfAm >90 (>60 ml/min/1.73 sqM) Est GFR (CKD-EPI)NonAf >90 (>60 ml/min/1.73 sqM) Glucose 96 (74-99) mg/dL Calcium 9.1 (8.4-10.2) mg/dL Total Bilirubin 0.2 (0.2-1.3) mg/dL AST 13 L (14-36) U/L ALT 19 (9-52) U/L Alkaline Phosphatase 61 (38-126) U/L Total Protein 7.6 (6.3-8.2) g/dL Albumin 4.1 (3.5-5.0) g/dL Urine HCG, Qual Not Detected (Not Detectd) Disposition Clinical Impression: Abdominal pain Disposition: HOME SELF-CARE Condition: Stable Instructions (If sedation given, give patient instructions): Abdominal Pain (ED ) Additional Instructions: Patient to adhere to previously discussed treatment plan and will take medication(s) as directed. Patient to follow up with PCP in 1-2 days. Patient to return to ED if symptoms do not improve. Is patient prescribed a controlled substance at d/c from ED?: No Referrals: Trista Julio MD [Primary Care Provider] - 1-2 days Time of Disposition: 18:18
[2018-10-17 15:24] LABS: ALT 19 U/L (9-52); AST 13 U/L (14-36); Albumin 4.1 g/dL (3.5-5.0); Alkaline Phosphatase 61 U/L (38-126); Anion Gap 7 mmol/L; Blood Urea Nitrogen 15 mg/dL (7-17); Calcium 9.1 mg/dL (8.4-10.2); Carbon Dioxide 25 mmol/L (22-30); Chloride 106 mmol/L (98-107); Glucose 96 mg/dL (74-99); Potassium 4.6 mmol/L (3.5-5.1); Sodium 138 mmol/L (137-145); Total Bilirubin 0.2 mg/dL (0.2-1.3); Total Protein 7.6 g/dL (6.3-8.2)
[2018-10-17 15:27] LABS: Basophils % (A) 0 %; Eosinophils # (A) 0.2 k/uL (0-0.7); Eosinophils % (A) 2 %; HCT 32.7 % (34.0-46.0); HGB 10.2 gm/dL (11.4-16.0); Hypochromasia Moderate; Lymphocytes # (A) 1.9 k/uL (1.0-4.8); Lymphocytes % (A) 17 %; MCH 24.7 pg (25.0-35.0); MCHC 31.1 g/dL (31.0-37.0); MCV 79.3 fL (80.0-100.0); Mean Platelet Volume 7.2; Monocytes # (A) 0.5 k/uL (0-1.0); Monocytes % (A) 4 %; Neutrophils # (A) 8.7 k/uL (1.3-7.7); Neutrophils % (A) 76 %; Platelet Count 435 k/uL (150-450); RBC 4.12 m/uL (3.80-5.40); RDW 13.4 % (11.5-15.5); WBC 11.5 k/uL (3.8-10.6)
--- NOTE | 2018-10-17 17:42 | CT ---
EXAMINATION TYPE: CT abdomen pelvis w con DATE OF EXAM: 10/17/2018 COMPARISON: 08/29/2017 HISTORY: RLQ pain CT DLP: 1364.8 mGycm Automated exposure control for dose reduction was used. TECHNIQUE: Helical acquisition of images was performed from the lung bases through the pelvis. CONTRAST: Performed with IV Contrast, patient injected with 100 mL of Isovue 300. FINDINGS: LUNG BASES: No significant abnormality is appreciated. LIVER/GB: No significant abnormality is appreciated. PANCREAS: No significant abnormality is seen. SPLEEN: No significant abnormality is seen. ADRENALS: No significant abnormality is seen. KIDNEYS: No significant abnormality is seen. FREE AIR: No free air is visualized. RETROPERITONEAL ADENOPATHY: None visualized REPRODUCTIVE ORGANS: 5.0 cm right adnexal cystic smoothly-marginated mass is noted, likely functional ovarian cyst which can be proven with clinical assessment and consideration of 2-week or 6-week foll ow-up ultrasound. URINARY BLADDER: No significant abnormality is seen. PELVIC ADENOPATHY: None visualized. OSSEOUS STRUCTURES: No significant abnormality is seen. BOWEL: No significant abnormality is seen. Appendix is well-visualized and has normal appearance. Te rminal ileum unremarkable. OTHER: Vasculature is unremarkable. Anterior abdominal wall is intact. IMPRESSION: 1. NEGATIVE FOR APPENDICITIS. 2. 5 CM RIGHT ADNEXAL CYST DISCUSSED; CLINICAL ASSESSMENT WILL BE ABLE TO SPECIFY.
[2018-10-17 18:37] VITALS: BP 135/95; PULSE 75; TEMP 98.5
== END 2018-10-17 18:30 | disposition home or self-care (01) ==
LOC: EC 13:36
DX: D72.829 Elevated white blood cell count, unspecified (principal); N94.89 Other specified conditions associated with female genital organs and menstrual cycle; D64.9 Anemia, unspecified; Z86.73 Personal history of transient ischemic attack (TIA), and cerebral infarction without residual deficits; Z86.14 Personal history of Methicillin resistant Staphylococcus aureus infection; Z87.442 Personal history of urinary calculi; Z90.49 Acquired absence of other specified parts of digestive tract; Z98.51 Tubal ligation status; Z79.891 Long term (current) use of opiate analgesic; Z91.041 Radiographic dye allergy status; Z88.8 Allergy status to other drugs, medicaments and biological substances; Z88.5 Allergy status to narcotic agent; Z53.8 Procedure and treatment not carried out for other reasons
CPT/HCPCS: 36415; 80053; 85025; 81025; 74177; 99284; 96374; 96375 ×2; 96361 ×3; J1200; J2930; Q9967

== ENCOUNTER → 2018-10-17 | Outpatient (CLI) | payer MEDICARE, OTHER ==
--- NOTE | 2018-10-17 14:29 | US ---
EXAMINATION TYPE: US transvaginal DATE OF EXAM: 10/17/2018 COMPARISON: Prior ultrasound 2013. CLINICAL HISTORY: N92.1 Excessive and frequent menstruation. DUB, heavy, bled for 1 month, G5,P4,A2, LLQ pain TECHNIQUE: TV. Date of LMP: Heavy pain and bleeding for one month. DUB EXAM MEASUREMENTS: Uterus: 10.4 x 6.4 x 4.9 cm Endometrial Stripe: 2.8 cm Right Ovary: 5.4 x 4.6 x 5.1 cm Left Ovary: 2.8 x 2.0 x 1.5 cm 1. Uterus: Anteverted 1.6cm irregular, hypoechoic area on the right of myometrium, possible fibroi d 2. Endometrium: thickened 3. Right Ovary: 4.0cm cyst seen 4. Left Ovary: wnl 5. Bilateral Adnexa: wnl 6. Posterior cul-de-sac: wnl Heterogeneous slightly retroverted uterus is seen. Multiple small nabothian cysts are scattered throu ghout the visualized cervix. Endometrium is heterogeneous and thickened up to 28 mm. No free fluid is evident in pelvic cul-de-sac. Both ovaries are seen. There is 4.0 cm simple appearing thin-walled cyst in right ovary identified on current study IMPRESSION: Heterogeneous thickened endometrium, consider dilatation and curettage to further evaluat e.
== END | disposition home or self-care (01) ==
LOC: RADUSWWP 13:07
PROVIDERS: ATTEND Obstetrics & Gynecology
DX: R93.89 Abnormal findings on diagnostic imaging of other specified body structures (principal); N92.1 Excessive and frequent menstruation with irregular cycle
CPT/HCPCS: 76830

== ENCOUNTER 2018-10-21 14:00 | Emergency (ER) | payer MEDICARE, OTHER ==
[2018-10-21] MEDS ORDERED: KETOROLAC 30 MG/ML 1 ML VIAL ONE (15:30)
[2018-10-21] MEDS ORDERED: SODIUM CHLORIDE 0.9% 1,000 ML BAG ONE (15:30)
[2018-10-22 01:45] LABS: Appearance,Urine Cloudy (Clear); Bacteria,Urine Rare /hpf; Bilirubin,Urine Negative (Negative); Blood,Urine Large (Negative); Color,Urine Yellow; Glucose,Urine (UA) Negative (Negative); Ketones,Urine Negative (Negative); Leukocyte Esterase,Urine Large (Negative); Mucus,Urine Many /hpf; Nitrite,Urine Negative (Negative); Protein,Urine Trace (Negative); RBC,Urine 33 /hpf (0-5); Specific Gravity,Urine 1.018 (1.001-1.035); Squamous Epithelial Cell,Urine 5 /hpf (0-4); Urobilinogen,Urine <2.0 mg/dL (<2.0); WBC,Urine 13 /hpf (0-5)
[2018-10-22 02:21] LABS: Basophils % (A) 0 %; Eosinophils # (A) 0.3 k/uL (0-0.7); Eosinophils % (A) 2 %; HCT 31.9 % (34.0-46.0); HGB 10.2 gm/dL (11.4-16.0); Hypochromasia Moderate; Lymphocytes # (A) 1.7 k/uL (1.0-4.8); Lymphocytes % (A) 15 %; MCH 25.3 pg (25.0-35.0); Mean Platelet Volume 6.7; Monocytes # (A) 0.6 k/uL (0-1.0); Monocytes % (A) 5 %; Neutrophils # (A) 8.5 k/uL (1.3-7.7); Neutrophils % (A) 76 %; Platelet Count 413 k/uL (150-450); RBC 4.04 m/uL (3.80-5.40); RDW 13.2 % (11.5-15.5); WBC 11.2 k/uL (3.8-10.6)
--- NOTE | 2018-10-22 10:02 | US ---
EXAMINATION TYPE: Ultrasound pelvis transvaginal DATE OF EXAM: 10/21/2018 COMPARISON: 10/17/2018 HISTORY: 38-year-old female right lower quadrant pain Date of LMP: 1 month ago EXAM PERFORMED: Emergent transvaginal (TV) pelvic ultrasound with color and waveform doppler imaging . FINDINGS: EXAM MEASUREMENTS: Uterus: 9.2 x 4.4 x 4.2 cm Endometrial Stripe: 1.0 cm versus 1.6 cm, previously Right Ovary: 5.1 x 4.0 x 4.5 cm Left Ovary: Not visualized due to overlying bowel TECH IMPRESSIONS: 1. Uterus: anteverted . Multiple nabothian cysts visualized. Heterogeneous myometrium. Hypoechoic ar ea visualized measuring 2.0 x 1.3 x 1.5 cm, possible fibroid along the posterior fundus 2. Endometrium: wnl 3. Right Ovary: Enlarged secondary to a 4.0 cm cyst. 4. Left Ovary: Not visualized Spectral, color and waveform doppler imaging shows good arterial and venous flow within the right ovary; there is no evidence for ovarian torsion in the right ovary. 5. Bilateral Adnexa: wnl 6. Posterior cul-de-sac: wnl IMPRESSION: 1. The right ovary is visualized with a 4 cm cyst that could represent a dominant follicle or functio nal cyst. This is unchanged from 4 days ago. Doppler assessment of the right ovary shows no evidence for ovarian torsion. Left ovary cannot be visualized. 2. Endometrial stripe now measures 1 cm. 3. Possible posterior fundal fibroid measuring 2.0 cm. 4. Numerous cervical nabothian cysts
[2018-10-22 11:35] LABS: ALT 19 U/L (9-52); AST 10 U/L (14-36); Albumin 4.1 g/dL (3.5-5.0); Alkaline Phosphatase 65 U/L (38-126); Anion Gap 7 mmol/L; Blood Urea Nitrogen 11 mg/dL (7-17); Calcium 8.8 mg/dL (8.4-10.2); Carbon Dioxide 28 mmol/L (22-30); Chloride 105 mmol/L (98-107); Glucose 93 mg/dL (74-99); Potassium 4.4 mmol/L (3.5-5.1); Sodium 140 mmol/L (137-145); Total Bilirubin 0.4 mg/dL (0.2-1.3); Total Protein 7.4 g/dL (6.3-8.2)
== END 2018-10-21 18:48 | disposition home or self-care (01) ==
LOC: EC 14:00
DX: N83.201 Unspecified ovarian cyst, right side (principal); F17.200 Nicotine dependence, unspecified, uncomplicated; Z88.6 Allergy status to analgesic agent; Z88.8 Allergy status to other drugs, medicaments and biological substances; Z88.5 Allergy status to narcotic agent
CPT/HCPCS: 36415; 80053; 85025; 81001; 93976; 76830; 99284; 96374; 96361; J1885

== ENCOUNTER 2019-02-16 14:52 | Emergency (ER) | payer MEDICARE, OTHER ==
--- NOTE | 2019-02-16 16:26 | CT ---
EXAMINATION TYPE: CT abdomen pelvis wo con DATE OF EXAM: 02/16/2019 COMPARISON: 10/17/2018 HISTORY: Left flank pain CT DLP: 933 mGycm Examination of the solid and hollow viscera is limited given the lack of contrast. FINDINGS: LUNG BASES: No evidence for nodule. No evidence for infiltrate. LIVER/GB: The gallbladder is unremarkable. No space-occupying hepatic lesion. PANCREAS: No pancreatic mass identified. No inflammatory process seen. SPLEEN: No evidence for splenomegaly. No intrasplenic lesions seen. ADRENALS: No adrenal nodules identified. No evidence for thickening. KIDNEYS: No evidence for renal mass. No nephrolithiasis. No hydronephrosis. BOWEL: Appendix has a normal appearance. No evidence of bowel obstruction. No inflammatory process. Lymph nodes: No evidence for adenopathy greater than 1 cm. Abdominal aorta: Atheromatous changes seen. No evidence for aneurysm. Genital organs: Enlarging right ovarian mass which may reflect complex cysts. Sonographic correlation advised. Current measurement is 5.8 cm versus 5 cm previously. Uterus is unremarkable. Small follicu lar cyst left ovary measuring 1.3 cm. Other: No significant abnormality. IMPRESSION: 1. Enlarging right ovarian mass may reflect complex cyst. Consider sonographic correlation.
[2019-02-16 16:47] LABS: Appearance,Urine Clear (Clear); Basophils % (A) 0 %; Bilirubin,Urine Negative (Negative); Blood,Urine Moderate (Negative); Color,Urine Yellow; Eosinophils # (A) 0.2 k/uL (0-0.7); Eosinophils % (A) 3 %; Glucose,Urine (UA) Negative (Negative); HCT 27.7 % (34.0-46.0); HGB 8.2 gm/dL (11.4-16.0); Hypochromasia Marked; Ketones,Urine Negative (Negative); Leukocyte Esterase,Urine Small (Negative); Lymphocytes # (A) 1.9 k/uL (1.0-4.8); Lymphocytes % (A) 21 %; MCHC 29.6 g/dL (31.0-37.0); MCV 70.9 fL (80.0-100.0); Mean Platelet Volume 8.5; Microcytosis Moderate; Monocytes # (A) 0.4 k/uL (0-1.0); Monocytes % (A) 4 %; Mucus,Urine Many /hpf; Neutrophils # (A) 6.2 k/uL (1.3-7.7); Neutrophils % (A) 70 %; Nitrite,Urine Negative (Negative); Platelet Count 403 k/uL (150-450); Poikilocytosis Slight; Protein,Urine 1+ (Negative); RBC 3.91 m/uL (3.80-5.40); RBC,Urine >182 /hpf (0-5); RDW 15.2 % (11.5-15.5); Specific Gravity,Urine 1.029 (1.001-1.035); Squamous Epithelial Cell,Urine 3 /hpf (0-4); Urobilinogen,Urine <2.0 mg/dL (<2.0); WBC 8.9 k/uL (3.8-10.6); WBC,Urine 8 /hpf (0-5)
[2019-02-16] MEDS ORDERED: IBUPROFEN 600 MG TAB PO STA (16:51)
--- NOTE | 2019-02-16 16:52 | ED ---
Abdominal Pain HPI - General Chief Complaint: Abdominal Pain Stated Complaint: left flank pain Time Seen by Provider: 02/16/19 15:29 Source: patient Mode of arrival: ambulatory Limitations: no limitations - History of Present Illness Initial Comments: Patient is a 38-year-old female presenting to emergency department with left flank pain. Patient reports the pain developed 2 days ago along the left flank and left lower back region. Patient states that she has a history of nephrolithiasis and his pain is very similar to that. Patient states the pain radiates along the posterior aspect on the left leg to her toe. Patient denies fever, nausea, vomiting, diarrhea, hematuria or hematochezia. Patient denies fever, dysuria, increased urgency or frequency, vaginal discharge or odor. Patient denies headache, lightheadedness, dizziness, shortness of breath, chest pain, chest tightness or palpitations. Patient states that she is not concerned about STIs. Patient denies taking any pain control medication - Related Data Home Medications Medication Instructions Recorded Confirmed HYDROcodone/APAP 10-325MG [[place] 1 tab PO TID 12/24/17 10/17/18 10-325] Allergies Allergy/AdvReac Type Severity Reaction Status Date / Time Iodinated Contrast- Oral and Allergy Rash/Hives Verified 02/16/19 15:20 IV Dye [Iodinated Contrast Media - IV Dye] iodine Allergy Rash/Hives Verified 02/16/19 15:20 Iodine and Iodide Containing Allergy Rash/Hives Verified 02/16/19 15:20 Produc bupropion HCl AdvReac Unknown Homicidal Verified 02/16/19 15:20 [From Wellbutrin] Ideation hydromorphone HCl AdvReac Diarrhea Verified 02/16/19 15:20 [From Dilaudid] propoxyphene napsylate AdvReac Nausea & Verified 02/16/19 15:20 [From Darvocet-N] Vomiting steroids Allergy Rash/Hives Uncoded 02/16/19 15:20 Review of Systems ROS Statement: Those systems with pertinent positive or pertinent negative responses have been documented in the HPI. ROS Other: All systems not noted in ROS Statement are negative. Past Medical History Past Medical History: Asthma, CVA/TIA, Hypertension, Seizure Disorder Additional Past Medical History / Comment(s): 11/2017 TIA or CVA (pt unsure) with resolved L sided weakness/aphasia but states still has short term memory loss, last seizure in 2017, frequent kidney infections, kidney stones she passed on her own, chronic cervical and low back pain, past fractured coccyx, gestational diabetes. History of Any Multi-Drug Resistant Organisms: MRSA Date of last positivie culture/infection: 1999,2013, 2016 MDRO Source:: right leg Past Surgical History: Appendectomy, Section, Cholecystectomy, Tonsillectomy, Tubal Ligation Additional Past Surgical History / Comment(s): Multiple ear surgeries (x15 left ear & 13 right ear) ended up with eardrum replacements, x2 Past Anesthesia/Blood Transfusion Reactions: No Reported Reaction Additional Past Anesthesia/Blood Transfusion Reaction / Comment(s): PT STATES DIFFICULTY WAKING UP. PTS FATHER ALSO HAS DIFFICULTY WAKING UP. Past Psychological History: ADD/ADHD, Anxiety Smoking Status: Never smoker Past Alcohol Use History: None Reported Past Drug Use History: None Reported - Past Family History Mother Family Medical History: Cancer Additional Family Medical History / Comment(s): KIDNEY CANCER- in 2012 at the age of 68yrs. Father Family Medical History: CVA/TIA, Myocardial Infarction (NM) Additional Family Medical History / Comment(s): Father had 8 CVAs and 2 MIs. His first NM was at age 69yrs and 2nd NM was at age 71yrs. He has a pacemaker. He is dyslexic. General Exam Limitations: no limitations General appearance: alert, in no apparent distress Head exam: Present: atraumatic, normocephalic, normal inspection Eye exam: Present: normal appearance Neck exam: Present: normal inspection Respiratory exam: Present: normal lung sounds bilaterally Cardiovascular Exam: Present: regular rate, normal rhythm, normal heart sounds GI/Abdominal exam: Present: soft, tenderness (Mild left lower quadrant. Left flank pain) Extremities exam: Present: normal inspection, full ROM Back exam: Present: tenderness (Left lower back.), CVA tenderness (L). Absent: CVA tenderness (R) Neurological exam: Present: alert, oriented X3 Psychiatric exam: Present: normal affect, normal mood Skin exam: Present: warm, intact, normal color Course Vital Signs 02/16/19 15:18 Temperature 98.9 F Pulse Rate 75 Respiratory 18 Rate Blood Pressure 124/75 O2 Sat by Pulse 100 Oximetry Medical Decision Making - Medical Decision Making Patient is a 38-year-old female presenting to the emergency department with left flank pain. CBC, CMP urine were ordered. Urine showing elevated red blood cells and possible signs of UTI. Patient was given ibuprofen for pain control. But she is not experiencing any UTI symptoms I am not going to treat it. CT of pelvis and abdomen is negative for kidney stones. CT showing possible right cystic mass. Patient advised to follow-up with primary care. Patient advised to return to emergency department if symptoms worsen. case Discussed with physician. - Lab Data Result diagrams: 02/16/19 16:31 02/16/19 16:31 Lab Results 02/16/19 02/16/19 02/16/19 Range/Units 16:31 16:31 16:31 WBC 8.9 (3.8-10.6) k/uL RBC 3.91 (3.80-5.40) m/uL Hgb 8.2 L (11.4-16.0) gm/dL Hct 27.7 L (34.0-46.0) % MCV 70.9 L (80.0-100.0) fL MCH 21.0 L (25.0-35.0) pg MCHC 29.6 L (31.0-37.0) g/dL RDW 15.2 (11.5-15.5) % Plt Count 403 (150-450) k/uL Neutrophils % 70 % Lymphocytes % 21 % Monocytes % 4 % Eosinophils % 3 % Basophils % 0 % Neutrophils # 6.2 (1.3-7.7) k/uL Lymphocytes # 1.9 (1.0-4.8) k/uL Monocytes # 0.4 (0-1.0) k/uL Eosinophils # 0.2 (0-0.7) k/uL Basophils # 0.0 (0-0.2) k/uL Hypochromasia Marked Poikilocytosis Slight Microcytosis Moderate Sodium 139 (137-145) mmol/L Potassium 3.9 (3.5-5.1) mmol/L Chloride 104 (98-107) mmol/L Carbon Dioxide 26 (22-30) mmol/L Anion Gap 9 mmol/L BUN 13 (7-17) mg/dL Creatinine 0.64 (0.52-1.04) mg/dL Est GFR (CKD-EPI)AfAm >90 (>60 ml/min/1.73 sqM) Est GFR (CKD-EPI)NonAf >90 (>60 ml/min/1.73 sqM) Glucose 107 H (74-99) mg/dL Calcium 9.2 (8.4-10.2) mg/dL Total Bilirubin 0.1 L (0.2-1.3) mg/dL AST 12 L (14-36) U/L ALT 13 (9-52) U/L Alkaline Phosphatase 66 (38-126) U/L Total Protein 7.4 (6.3-8.2) g/dL Albumin 4.1 (3.5-5.0) g/dL Urine Color Yellow Urine Appearance Clear (Clear) Urine pH 6.0 (5.0-8.0) Ur Specific [place] 1.029 (1.001-1.035) Urine Protein 1+ H (Negative) Urine Glucose (UA) Negative (Negative) Urine Ketones Negative (Negative) Urine Blood Moderate H (Negative) Urine Nitrite Negative (Negative) Urine Bilirubin Negative (Negative) Urine Urobilinogen <2.0 (<2.0) mg/dL Ur Leukocyte Esterase Small H (Negative) Urine RBC >182 H (0-5) /hpf Urine WBC 8 H (0-5) /hpf Ur Squamous Epith Cells 3 (0-4) /hpf Urine Mucus Many H (None) /hpf Disposition Clinical Impression: Flank pain Disposition: HOME SELF-CARE Condition: Stable Instructions (If sedation given, give patient instructions): Flank Pain (ED) Additional Instructions: Please follow up with primary care. Please return to emergency department if symptoms worsen. Is patient prescribed a controlled substance at d/c from ED?: No Referrals: Trista Julio MD [Primary Care Provider] - 1-2 days Time of Disposition: 17:52
[2019-02-16 16:59] LABS: ALT 13 U/L (9-52); AST 12 U/L (14-36); Albumin 4.1 g/dL (3.5-5.0); Alkaline Phosphatase 66 U/L (38-126); Anion Gap 9 mmol/L; Blood Urea Nitrogen 13 mg/dL (7-17); Calcium 9.2 mg/dL (8.4-10.2); Carbon Dioxide 26 mmol/L (22-30); Chloride 104 mmol/L (98-107); Glucose 107 mg/dL (74-99); Potassium 3.9 mmol/L (3.5-5.1); Sodium 139 mmol/L (137-145); Total Bilirubin 0.1 mg/dL (0.2-1.3); Total Protein 7.4 g/dL (6.3-8.2)
[2019-02-16 18:15] VITALS: BP 125/78; PULSE 78; RESP 16; TEMP 98.2
== END 2019-02-16 18:13 | disposition home or self-care (01) ==
LOC: EEVIPCON 14:52 → EC 14:52
DX: R10.9 Unspecified abdominal pain (principal); M54.5 Low back pain; M54.2 Cervicalgia; G89.29 Other chronic pain; Z79.891 Long term (current) use of opiate analgesic; Z91.041 Radiographic dye allergy status; Z88.8 Allergy status to other drugs, medicaments and biological substances; Z88.5 Allergy status to narcotic agent; Z90.49 Acquired absence of other specified parts of digestive tract; Z98.51 Tubal ligation status
CPT/HCPCS: 36415; 74176; 80053; 81001; 85025; 99284

== ENCOUNTER 2019-04-09 14:35 | Emergency (ER) | payer MEDICARE, OTHER ==
[2019-04-09 14:48] VITALS: RESP 16; TEMP 97.5
--- NOTE | 2019-04-09 15:13 | ED ---
General Adult HPI - General Chief complaint: Wound/Laceration Stated complaint: RT TOE INJURY Time Seen by Provider: 04/09/19 14:37 Source: patient Mode of arrival: EMS Limitations: no limitations - History of Present Illness Initial comments: Patient is a 38-year-old female presenting to emergency Department with an injury to her right hallux. Patient reports walking up the stairs when she "stubbed"her right foot causing a minor laceration on the plantar aspect of her right hallux. Patient reports minimal bleeding and denies erythema or edema. P atient reports the pain is alleviated at rest and exacerbated with weightbearing. Patient denies numbness or tingling. Patient reports full range of motion. Patient's tetanus status is up-to-date. Patient denies taking medication to alleviate the symptoms. - Related Data Home Medications Medication Instructions Recorded Confirmed HYDROcodone/APAP 10-325MG [[place] 1 tab PO TID 12/24/17 10/17/18 10-325] Allergies Allergy/AdvReac Type Severity Reaction Status Date / Time Iodinated Contrast- Oral and Allergy Rash/Hives Verified 04/09/19 14:43 IV Dye [Iodinated Contrast Media - IV Dye] iodine Allergy Rash/Hives Verified 04/09/19 14:43 Iodine and Iodide Containing Allergy Rash/Hives Verified 04/09/19 14:43 Produc bupropion HCl AdvReac Unknown Homicidal Verified 04/09/19 14:43 [From Wellbutrin] Ideation hydromorphone HCl AdvReac Diarrhea Verified 04/09/19 14:43 [From Dilaudid] propoxyphene napsylate AdvReac Nausea & Verified 04/09/19 14:43 [From Darvocet-N] Vomiting steroids Allergy Rash/Hives Uncoded 04/09/19 14:43 Review of Systems ROS Statement: Those systems with pertinent positive or pertinent negative responses have been documented in the HPI. ROS Other: All systems not noted in ROS Statement are negative. Past Medical History Past Medical History: Asthma, CVA/TIA, Hypertension, Seizure Disorder Additional Past Medical History / Comment(s): 11/2017 TIA or CVA (pt unsure) with resolved L sided weakness/aphasia but states still has short term memory loss, last seizure in 2016, frequent kidney infections, kidney stones she passed on her own, chronic cervical and low back pain, past fractured coccyx, gestational diabetes. History of Any Multi-Drug Resistant Organisms: MRSA Date of last positivie culture/infection: 1999,2013, 2016 MDRO Source:: right leg Past Surgical History: Appendectomy, Section, Cholecystectomy, Tonsillectomy, Tubal Ligation Additional Past Surgical History / Comment(s): Multiple ear surgeries (x15 left ear & 13 right ear) ended up with eardrum replacements, x2 Past Anesthesia/Blood Transfusion Reactions: No Reported Reaction Additional Past Anesthesia/Blood Transfusion Reaction / Comment(s): PT STATES DIFFICULTY WAKING UP. PTS FATHER ALSO HAS DIFFICULTY WAKING UP. Past Psychological History: ADD/ADHD, Anxiety Smoking Status: Never smoker Past Alcohol Use History: None Reported Past Drug Use History: None Reported - Past Family History Mother Family Medical History: Cancer Additional Family Medical History / Comment(s): KIDNEY CANCER- in 2012 at the age of 68yrs. Father Family Medical History: CVA/TIA, Myocardial Infarction ([place]) Additional Family Medical History / Comment(s): Father had 8 CVAs and 2 MIs. His first [place] was at age 69yrs and 2nd [place] was at age 71yrs. He has a pacemaker. He is dyslexic. General Exam - General Exam Comments Initial Comments: General: Well-developed well-nourished distress HEENT: Normocephalic/atraumatic, PERLL, pharynx erythema, swallowing well, EAC no erythema, no exudates, TM clear, no cervical lymph nodes Neck: Supple, nontender, trachea midline Chest/Lungs: Normal respirations, no signs of respiratory distress clear to auscultation bilaterally no wheezes, rales, rhonchi Cardiac: Regular rate and rhythm, normal S1-S2, no murmurs rubs or gallops Abdomen/GI: Soft nontender, bowel sounds equal or quadrant x4, no guarding, no rebound no CVA tenderness Musculoskeletal: 2 cm laceration on the plantar aspect of right hallux, full range of motion of the right hallux, no erythema or edema, no active bleeding, Skin: Warmth, no rashes or lesions, no cyanosis or diaphoresis Neurologic: AAO x 3, CN 2-12 intact, Psychiatric: Mood and affect normal, judgment normal Limitations: no limitations Course Vital Signs 04/09/19 14:43 Temperature 97.5 F L Pulse Rate 72 Respiratory 16 Rate Blood Pressure 118/66 O2 Sat by Pulse 100 Oximetry Procedures - Laceration Laceration #1 Consent Obtained: verbal consent Indication: laceration Site: foot Size (cm): 2 Description: linear Depth: simple, single layer Anesthetic Used: lidocaine 1% Anesthesia Technique: local infiltration Amount (mls): 5 Pre-repair: irrigated extensively Type of Sutures: nylon Size of Sutures: 4-0 Number of Sutures: 3 Technique: simple, interrupted Patient Tolerated Procedure: well Medical Decision Making - Medical Decision Making Patient is a 38-year-old female presenting to emergency Department with a laceration on the right toe. Laceration site was repaired with 3 sutures in patient tolerated the procedure well. Patient advised to return for suture removal in 10 days or sooner if symptoms worsen. Patient advised to follow proper wound care instructions. Strict return parameters thoroughly discussed the patient was understanding and agreeable. Patient advised to follow with primary care. Case discussed with physician. Disposition Clinical Impression: Laceration Disposition: HOME SELF-CARE Condition: Stable Instructions (If sedation given, give patient instructions): Care For Your Stitches (DC), Laceration (DC) Additional Instructions: Please return to the emergency department for suture removal in 10 days. Please follow proper wound care instructions. Please return to emergency department if symptoms worsen. Is patient prescribed a controlled substance at d/c from ED?: No Referrals: Trista Julio MD [Primary Care Provider] - 1-2 days Time of Disposition: 16:20
[2019-04-09] MEDS ORDERED: DIPH,PERTUS(ACELL)TETVAC-LF 0.5 ML VIAL IM ONE (15:18)
[2019-04-09] MEDS ORDERED: LIDOCAINE 1% INJ 10MG/ML (20 ML MDV) SQ ONE (15:19)
[2019-04-09] MEDS ORDERED: ACETAMINOPHEN TAB 500 MG TAB PO STA (16:07)
[2019-04-09] MEDS ORDERED: SODIUM CHLORIDE 0.9% IRRIG 1,000 ML BTL IRRIGATION ONE (16:18)
[2019-04-09 16:33] VITALS: BP 120/70; PULSE 81
== END 2019-04-09 16:30 | disposition home or self-care (01) ==
LOC: EC 14:35 → EEVIPCON 14:35 → EC 16:30
DX: S91.311A Laceration without foreign body, right foot, initial encounter (principal); Z53.29 Procedure and treatment not carried out because of patient's decision for other reasons; M54.5 Low back pain; M54.2 Cervicalgia; G89.29 Other chronic pain; Z86.73 Personal history of transient ischemic attack (TIA), and cerebral infarction without residual deficits; Z86.14 Personal history of Methicillin resistant Staphylococcus aureus infection; Z79.891 Long term (current) use of opiate analgesic; Z88.5 Allergy status to narcotic agent; Z88.8 Allergy status to other drugs, medicaments and biological substances; Z91.041 Radiographic dye allergy status; W01.10XA Fall on same level from slipping, tripping and stumbling with subsequent striking against unspecified object, initial encounter; Y92.240 Courthouse as the place of occurrence of the external cause
CPT/HCPCS: 99283; 12001; J2001

== ENCOUNTER → 2019-05-09 | Outpatient (CLI) | payer MEDICARE, OTHER ==
[2019-05-09 16:00] LABS: Anisocytosis Slight; Basophils % (A) 0 %; Eosinophils # (A) 0.3 k/uL (0-0.7); Eosinophils % (A) 3 %; HGB 8.2 gm/dL (11.4-16.0); Hypochromasia Marked; Lymphocytes # (A) 1.4 k/uL (1.0-4.8); Lymphocytes % (A) 12 %; MCH 18.9 pg (25.0-35.0); MCHC 28.3 g/dL (31.0-37.0); MCV 66.7 fL (80.0-100.0); Mean Platelet Volume 7.4; Microcytosis Marked; Monocytes # (A) 0.4 k/uL (0-1.0); Monocytes % (A) 4 %; Neutrophils # (A) 9.1 k/uL (1.3-7.7); Neutrophils % (A) 80 %; Platelet Count 420 k/uL (150-450); RBC 4.34 m/uL (3.80-5.40); RDW 17.8 % (11.5-15.5); WBC 11.4 k/uL (3.8-10.6)
== END | disposition home or self-care (01) ==
LOC: LABWHC1 15:09
PROVIDERS: ATTEND Nurse Practitioner Family
DX: D64.9 Anemia, unspecified (principal)
CPT/HCPCS: 36415; 85025

== ENCOUNTER 2019-05-14 15:05 | Emergency (ER) | payer MEDICARE, OTHER ==
[2019-05-14] MEDS ORDERED: SODIUM CHLORIDE 0.9% 1,000 ML IV STA (15:54)
[2019-05-14 16:21] LABS: Anisocytosis Slight; Basophils % (A) 0 %; Eosinophils # (A) 0.4 k/uL (0-0.7); Eosinophils % (A) 4 %; HCT 29.4 % (34.0-46.0); HGB 8.7 gm/dL (11.4-16.0); Hypochromasia Marked; Lymphocytes # (A) 1.7 k/uL (1.0-4.8); Lymphocytes % (A) 16 %; MCH 19.9 pg (25.0-35.0); MCHC 29.6 g/dL (31.0-37.0); Mean Platelet Volume 7.2; Microcytosis Marked; Monocytes # (A) 0.4 k/uL (0-1.0); Monocytes % (A) 4 %; Neutrophils # (A) 8.1 k/uL (1.3-7.7); Neutrophils % (A) 74 %; Platelet Count 416 k/uL (150-450); RBC 4.38 m/uL (3.80-5.40); RDW 18.2 % (11.5-15.5); WBC 10.8 k/uL (3.8-10.6)
[2019-05-14 16:25] LABS: ALT 15 U/L (9-52); AST 14 U/L (14-36); African American GFR (CKD) >90 (>60 ml/min/1.73 sqM); Alkaline Phosphatase 75 U/L (38-126); Anion Gap 8 mmol/L; Blood Urea Nitrogen 12 mg/dL (7-17); Calcium 8.9 mg/dL (8.4-10.2); Carbon Dioxide 26 mmol/L (22-30); Chloride 104 mmol/L (98-107); Glucose 105 mg/dL (74-99); Non-African American GFR(CKD) >90 (>60 ml/min/1.73 sqM); Potassium 4.2 mmol/L (3.5-5.1); Sodium 138 mmol/L (137-145); Total Bilirubin 0.2 mg/dL (0.2-1.3); Total Protein 7.4 g/dL (6.3-8.2)
[2019-05-14 16:27] LABS: Appearance,Urine Cloudy (Clear); Bacteria,Urine Moderate /hpf; Bilirubin,Urine Negative (Negative); Blood,Urine Negative (Negative); Color,Urine Yellow; Glucose,Urine (UA) Negative (Negative); Ketones,Urine Negative (Negative); Leukocyte Esterase,Urine Large (Negative); Mucus,Urine Many /hpf; Nitrite,Urine Negative (Negative); Protein,Urine 1+ (Negative); RBC,Urine 8 /hpf (0-5); Squamous Epithelial Cell,Urine 5 /hpf (0-4); WBC,Urine 10 /hpf (0-5)
[2019-05-14 16:35] LABS: INR 0.9 (<1.2); Partial Thromboplastin Time 25.7 sec (22.0-30.0); Prothrombin Time 9.8 sec (9.0-12.0)
--- NOTE | 2019-05-14 16:48 | ED ---
General Adult HPI - General Chief complaint: Neuro Symptoms/Deficit Stated complaint: lt sided numbness, chest pain Time Seen by Provider: 05/14/19 15:43 Source: patient Mode of arrival: ambulatory Limitations: no limitations - History of Present Illness Initial comments: Patient is a 38-year-old female, well-known to the emergency department, with complaints of numbness from her left arm down to her left toe 2 days. Patient is also complaining of a cough, chest pain, shortness of breath. Patient states all the symptoms started approximately 2 days ago. Patient denies fever, chills, nausea, vomiting, diarrhea. Patient states she also feels weak on her left arm as well as her left leg. Patient denies any history of falls or head trauma. Patient states she is coughing so hard that she sometimes has a headache as well. Patient denies changes in her vision, difficulty speaking, memory issues. Upon arrival, patient is resting comfortably on the bed. Patient's vital signs are stable, afebrile. - Related Data Home Medications Medication Instructions Recorded Confirmed HYDROcodone/APAP 10-325MG [[place] 1 tab PO TID 12/24/17 10/17/18 10-325] Allergies Allergy/AdvReac Type Severity Reaction Status Date / Time Iodinated Contrast- Oral and Allergy Rash/Hives Verified 04/09/19 14:43 IV Dye [Iodinated Contrast Media - IV Dye] iodine Allergy Rash/Hives Verified 04/09/19 14:43 Iodine and Iodide Containing Allergy Rash/Hives Verified 04/09/19 14:43 Produc bupropion HCl AdvReac Unknown Homicidal Verified 04/09/19 14:43 [From Wellbutrin] Ideation hydromorphone HCl AdvReac Diarrhea Verified 04/09/19 14:43 [From Dilaudid] propoxyphene napsylate AdvReac Nausea & Verified 04/09/19 14:43 [From Darvocet-N] Vomiting steroids Allergy Rash/Hives Uncoded 04/09/19 14:43 Review of Systems ROS Statement: Those systems with pertinent positive or pertinent negative responses have been documented in the HPI. ROS Other: All systems not noted in ROS Statement are negative. Past Medical History Past Medical History: Asthma, CVA/TIA, Hypertension, Seizure Disorder Additional Past Medical History / Comment(s): 11/2017 TIA or CVA (pt unsure) with resolved L sided weakness/aphasia but states still has short term memory loss, last seizure in 2017, frequent kidney infections, kidney stones she passed on her own, chronic cervical and low back pain, past fractured coccyx, gestational diabetes. History of Any Multi-Drug Resistant Organisms: MRSA Date of last positivie culture/infection: 1999,2013, 2016 MDRO Source:: right leg Past Surgical History: Appendectomy, Section, Cholecystectomy, Tonsillectomy, Tubal Ligation Additional Past Surgical History / Comment(s): Multiple ear surgeries (x15 left ear & 13 right ear) ended up with eardrum replacements, x2 Past Anesthesia/Blood Transfusion Reactions: No Reported Reaction Additional Past Anesthesia/Blood Transfusion Reaction / Comment(s): PT STATES DIFFICULTY WAKING UP. PTS FATHER ALSO HAS DIFFICULTY WAKING UP. Past Psychological History: ADD/ADHD, Anxiety Smoking Status: Never smoker Past Alcohol Use History: None Reported Past Drug Use History: None Reported - Past Family History Mother Family Medical History: Cancer Additional Family Medical History / Comment(s): KIDNEY CANCER- in 2012 at the age of 68yrs. Father Family Medical History: CVA/TIA, Myocardial Infarction ([place]) Additional Family Medical History / Comment(s): Father had 8 CVAs and 2 MIs. His first [place] was at age 69yrs and 2nd [place] was at age 71yrs. He has a pacemaker. He is dyslexic. General Exam - General Exam Comments Initial Comments: GENERAL: Well-appearing, well-nourished and in no acute distress. Speaking appropriat kyrie. HEAD: Atraumatic, normocephalic. EYES: Pupils equal round and reactive to light, extraocular movements intact, sclera anicteric, conjunctiva are normal. ENT: TMs normal, nares patent, oropharynx clear without exudates. Moist mucous membranes. NECK: Normal range of motion, supple without lymphadenopathy or JVD. LUNGS: Breath sounds clear to auscultation bilaterally and equal. No wheezes rales or rhonchi. Mild congestion noted, clears with clear the throat. HEART: Regular rate and rhythm without murmurs, rubs or gallops. ABDOMEN: Soft, nontender, normoactive bowel sounds. No guarding, no rebound. No masses appreciated. : Deferred EXTREMITIES: Normal range of motion, no pitting or edema. No clubbing or cyanosis. Patient states decreased sensation on left arm and leg compared to right. Patient has 5 out of 5 strength in upper and lower extremities. NEUROLOGICAL: Cranial nerves II through XII grossly intact. Normal speech, normal gait. PSYCH: Normal mood, normal affect. SKIN: Warm, Dry, normal turgor, no rashes or lesions noted. Limitations: no limitations Neurological exam: Present: alert, oriented X3, CN II-XII intact, normal gait. Absent: abnormal gait Expanded Neurological exam: Absent: memory loss-remote event, memory loss-recent event Patient oriented to: Present: person, place, time Speech: Present: fluid speech Cranial nerves: EOM's Intact: Normal, Gag Reflex: Normal, Tongue Deviation: Normal, Facial Sensation: Normal Cerebellar function: Finger to Nose: Normal Upper motor neuron: Pronator Drift: Normal Motor strength exam: RUE: 5, LUE: 5, RLE: 5, LLE: 5 Eye Response: (4) open spontaneously Motor Response: (6) obeys commands Verbal Response: (5) oriented [place] Total: 15 Course Vital Signs 05/14/19 05/14/19 15:19 17:58 Temperature 98.4 F 98.2 F Pulse Rate 73 78 Respiratory 20 12 Rate Blood Pressure 118/70 128/81 O2 Sat by Pulse 99 98 Oximetry EKG Findings - EKG Comments: EKG Findings:: Ventricular rate 66, MN interval 150, QTC 417. Normal sinus rhythm. No ST segment changes. Medical Decision Making - Medical Decision Making Patient is a 38-year-old female well-known to this ER with complaints of left arm and left lower leg numbness 2 days. Patient is also complaining of cough and headache. Patient's vital signs are stable, afebrile. Patient's exam including neuro exam is unremarkable. Patient does admit to some mild decreased sensation of left arm and left leg. Strength is 5 out of 5 upper and lower extremities. Patient's CBC, CMP are within normal limits. Troponin was normal. UA has a few WBCs but otherwise normal. Patient's EKG was normal. CT of the head showed no acute abnormalities. Chest x-ray is normal. These findings were discussed with the patient and she will follow-up with Dr. Webster as needed if symptoms persist. Patient is in agreement with this plan of care and is ready to be discharged. Case discussed with Dr. England. Return parameters were discussed with the patient she verbalized understanding. - Lab Data Result diagrams: 05/14/19 15:40 05/14/19 15:40 Lab Results 05/14/19 05/14/19 05/14/19 Range/Units 15:40 15:40 15:40 WBC 10.8 H (3.8-10.6) k/uL RBC 4.38 (3.80-5.40) m/uL Hgb 8.7 L (11.4-16.0) gm/dL Hct 29.4 L (34.0-46.0) % MCV 67.0 L (80.0-100.0) fL MCH 19.9 L (25.0-35.0) pg MCHC 29.6 L (31.0-37.0) g/dL RDW 18.2 H (11.5-15.5) % Plt Count 416 (150-450) k/uL Neutrophils % 74 % Lymphocytes % 16 % Monocytes % 4 % Eosinophils % 4 % Basophils % 0 % Neutrophils # 8.1 H (1.3-7.7) k/uL Lymphocytes # 1.7 (1.0-4.8) k/uL Monocytes # 0.4 (0-1.0) k/uL Eosinophils # 0.4 (0-0.7) k/uL Basophils # 0.0 (0-0.2) k/uL Hypochromasia Marked Anisocytosis Slight Microcytosis Marked PT 9.8 (9.0-12.0) sec INR 0.9 (<1.2) APTT 25.7 (22.0-30.0) sec Sodium 138 (137-145) mmol/L Potassium 4.2 (3.5-5.1) mmol/L Chloride 104 (98-107) mmol/L Carbon Dioxide 26 (22-30) mmol/L Anion Gap 8 mmol/L BUN 12 (7-17) mg/dL Creatinine 0.65 (0.52-1.04) mg/dL Est GFR (CKD-EPI)AfAm >90 (>60 ml/min/1.73 sqM) Est GFR (CKD-EPI)NonAf >90 (>60 ml/min/1.73 sqM) Glucose 105 H (74-99) mg/dL Calcium 8.9 (8.4-10.2) mg/dL Total Bilirubin 0.2 (0.2-1.3) mg/dL AST 14 (14-36) U/L ALT 15 (9-52) U/L Alkaline Phosphatase 75 (38-126) U/L Troponin I (0.000-0.034) ng/mL Total Protein 7.4 (6.3-8.2) g/dL Albumin 4.0 (3.5-5.0) g/dL Urine Color Urine Appearance (Clear) Urine pH (5.0-8.0) Ur Specific [place] (1.001-1.035) Urine Protein (Negative) Urine Glucose (UA) (Negative) Urine Ketones (Negative) Urine Blood (Negative) Urine Nitrite (Negative) Urine Bilirubin (Negative) Urine Urobilinogen (<2.0) mg/dL Ur Leukocyte Esterase (Negative) Urine RBC (0-5) /hpf Urine WBC (0-5) /hpf Ur Squamous Epith Cells (0-4) /hpf Urine Bacteria (None) /hpf Urine Mucus (None) /hpf Urine HCG, Qual (Not Detectd) 05/14/19 05/14/19 05/14/19 Range/Units 15:40 15:40 15:40 WBC (3.8-10.6) k/uL RBC (3.80-5.40) m/uL Hgb (11.4-16.0) gm/dL Hct (34.0-46.0) % MCV (80.0-100.0) fL MCH (25.0-35.0) pg MCHC (31.0-37.0) g/dL RDW (11.5-15.5) % Plt Count (150-450) k/uL Neutrophils % % Lymphocytes % % Monocytes % % Eosinophils % % Basophils % % Neutrophils # (1.3-7.7) k/uL Lymphocytes # (1.0-4.8) k/uL Monocytes # (0-1.0) k/uL Eosinophils # (0-0.7) k/uL Basophils # (0-0.2) k/uL Hypochromasia Anisocytosis Microcytosis PT (9.0-12.0) sec INR (<1.2) APTT (22.0-30.0) sec Sodium (137-145) mmol/L Potassium (3.5-5.1) mmol/L Chloride (98-107) mmol/L Carbon Dioxide (22-30) mmol/L Anion Gap mmol/L BUN (7-17) mg/dL Creatinine (0.52-1.04) mg/dL Est GFR (CKD-EPI)AfAm (>60 ml/min/1.73 sqM) Est GFR (CKD-EPI)NonAf (>60 ml/min/1.73 sqM) Glucose (74-99) mg/dL Calcium (8.4-10.2) mg/dL Total Bilirubin (0.2-1.3) mg/dL AST (14-36) U/L ALT (9-52) U/L Alkaline Phosphatase (38-126) U/L Troponin I <0.012 (0.000-0.034) ng/mL Total Protein (6.3-8.2) g/dL Albumin (3.5-5.0) g/dL Urine Color Yellow Urine Appearance Cloudy H (Clear) Urine pH 6.0 (5.0-8.0) Ur Specific [place] 1.030 (1.001-1.035) Urine Protein 1+ H (Negative) Urine Glucose (UA) Negative (Negative) Urine Ketones Negative (Negative) Urine Blood Negative (Negative) Urine Nitrite Negative (Negative) Urine Bilirubin Negative (Negative) Urine Urobilinogen 2.0 (<2.0) mg/dL Ur Leukocyte Esterase Large H (Negative) Urine RBC 8 H (0-5) /hpf Urine WBC 10 H (0-5) /hpf Ur Squamous Epith Cells 5 H (0-4) /hpf Urine Bacteria Moderate H (None) /hpf Urine Mucus Many H (None) /hpf Urine HCG, Qual Not Detected (Not Detectd) Disposition Clinical Impression: Cough, Chest pain, atypical, Left arm numbness Disposition: HOME SELF-CARE Condition: Stable Instructions (If sedation given, give patient instructions): Paresthesia (ED) Additional Instructions: Please return to the Emergency Department if symptoms worsen or any other concerns. Follow-up with PCP as discussed well. Is patient prescribed a controlled substance at d/c from ED?: No Referrals: Mat Eckert Jr, DO [Primary Care Provider] - 1-2 days
--- NOTE | 2019-05-14 16:57 | XR ---
EXAMINATION TYPE: XR chest 2V DATE OF EXAM: 05/14/2019 COMPARISON: 08/05/2018 HISTORY: Chest pain TECHNIQUE: Frontal and lateral views of the chest are obtained. FINDINGS: Heart and mediastinum are normal. Lungs are clear. Diaphragm is normal. Bony thorax appear s normal. There are chest leads. IMPRESSION: Normal chest. No change.
--- NOTE | 2019-05-14 17:02 | CT ---
EXAMINATION TYPE: CT brain wo con DATE OF EXAM: 05/14/2019 COMPARISON: 08/05/2018 HISTORY: Left sided body numbness. CT DLP: 1129.4 mGycm. Automated Exposure Control for Dose Reduction was Utilized. TECHNIQUE: CT scan of the head is performed without contrast. FINDINGS: Ventricles have normal size. There is no mass effect nor midline shift. There is no sign of intracranial hemorrhage. The calvarium is intact. There is mild mucosal thickening in the ethmoid sinus. IMPRESSION: Negative CT scan of the brain. No change compared to old exam.
[2019-05-14 18:06] VITALS: BP 128/81; PULSE 78; RESP 12; TEMP 98.2
== END 2019-05-14 17:58 | disposition home or self-care (01) ==
LOC: EC 15:05
DX: R07.89 Other chest pain (principal); R20.0 Anesthesia of skin; R05 Cough; R06.02 Shortness of breath; R51 Headache; Z79.891 Long term (current) use of opiate analgesic; Z91.041 Radiographic dye allergy status; Z79.899 Other long term (current) drug therapy; Z79.52 Long term (current) use of systemic steroids; Z86.14 Personal history of Methicillin resistant Staphylococcus aureus infection; Z98.51 Tubal ligation status
CPT/HCPCS: 36415; 70450; 71046; 80053; 81001; 81025; 84484; 85025; 85610; 85730; 93005; 96360; 99284

== ENCOUNTER 2019-06-16 22:14 | Emergency (ER) | payer MEDICARE, OTHER ==
[2019-06-16 22:23] VITALS: TEMP 98.5
--- NOTE | 2019-06-16 23:03 | XR ---
EXAMINATION TYPE: XR knee complete RT DATE OF EXAM: 06/16/2019 COMPARISON: 03/14/2016 HISTORY: Knee pain and swelling TECHNIQUE: 3 views FINDINGS: There is mild spurring of the medial femoral and tibial condyles. I see no fracture nor dis location. There is minor spurring on the patella. There is no sign of joint effusion. IMPRESSION: Minimal hypertrophic arthritic changes. No fracture. No significant joint space narrowing .
--- NOTE | 2019-06-16 23:42 | ED ---
General Adult HPI - General Chief complaint: Extremity Injury, Lower Stated complaint: Knee injury Time Seen by Provider: 06/16/19 22:33 Source: patient Mode of arrival: wheelchair Limitations: no limitations - History of Present Illness Initial comments: Patient is a 38-year-old female presenting to the emergency department with a chief complaint of right knee pain. Patient reports she lost her balance and fell on the right knee. Patient reports the pain is exacerbated with knee flexion. Patient reports the pain is a 7 and throbbing. Patient denies any numbness and tingling. Patient doesn't have any edema or erythema or skin discoloration. There is no abrasions or lacerations. Patient denies taking any medication to alleviate the symptoms. Patient reports the pain is exacerbated with flexion and alleviated at rest. - Related Data Home Medications Medication Instructions Recorded Confirmed No Known Home Medications 06/16/19 06/16/19 Allergies Allergy/AdvReac Type Severity Reaction Status Date / Time Iodinated Contrast- Oral and Allergy Rash/Hives Verified 06/16/19 22:29 IV Dye [Iodinated Contrast Media - IV Dye] iodine Allergy Rash/Hives Verified 06/16/19 22:29 Iodine and Iodide Containing Allergy Rash/Hives Verified 06/16/19 22:29 Produc bupropion HCl AdvReac Unknown Homicidal Verified 06/16/19 22:29 [From Wellbutrin] Ideation aspirin AdvReac Nausea & Verified 06/16/19 22:29 Vomiting hydromorphone HCl AdvReac Diarrhea Verified 06/16/19 22:29 [From Dilaudid] propoxyphene napsylate AdvReac Nausea & Verified 06/16/19 22:29 [From Darvocet-N] Vomiting steroids Allergy Rash/Hives Uncoded 06/16/19 22:29 Review of Systems ROS Statement: Those systems with pertinent positive or pertinent negative responses have been documented in the HPI. ROS Other: All systems not noted in ROS Statement are negative. Past Medical History Past Medical History: Asthma, CVA/TIA, Hypertension, Seizure Disorder Additional Past Medical History / Comment(s): 11/2017 TIA or CVA (pt unsure) with resolved L sided weakness/aphasia but states still has short term memory loss, last seizure in 2017, frequent kidney infections, kidney stones she passed on her own, chronic cervical and low back pain, past fractured coccyx, gestational diabetes. History of Any Multi-Drug Resistant Organisms: MRSA Date of last positivie culture/infection: 1999,2013, 2016 MDRO Source:: right leg Past Surgical History: Appendectomy, Section, Cholecystectomy, Tonsillectomy, Tubal Ligation Additional Past Surgical History / Comment(s): Multiple ear surgeries (x15 left ear & 13 right ear) ended up with eardrum replacements, x2 Past Anesthesia/Blood Transfusion Reactions: No Reported Reaction Additional Past Anesthesia/Blood Transfusion Reaction / Comment(s): PT STATES DIFFICULTY WAKING UP. PTS FATHER ALSO HAS DIFFICULTY WAKING UP. Past Psychological History: ADD/ADHD, Anxiety Smoking Status: Never smoker Past Alcohol Use History: None Reported Past Drug Use History: None Reported - Past Family History Mother Family Medical History: Cancer Additional Family Medical History / Comment(s): KIDNEY CANCER- in 2012 at the age of 68yrs. Father Family Medical History: CVA/TIA, Myocardial Infarction ([place]) Additional Family Medical History / Comment(s): Father had 8 CVAs and 2 MIs. His first [place] was at age 69yrs and 2nd [place] was at age 71yrs. He has a pacemaker. He is dyslexic. General Exam - General Exam Comments Initial Comments: General: Well-developed well-nourished distress HEENT: Normocephalic/atraumatic, PERLL, pharynx erythema, swallowing well, EAC no erythema, no exudates, TM clear, no cervical lymph nodes Neck: Supple, nontender, trachea midline Chest/Lungs: Normal respirations, no signs of respiratory distress clear to auscultation bilaterally no wheezes, rales, rhonchi Cardiac: Regular rate and rhythm, normal S1-S2, no murmurs rubs or gallops Abdomen/GI: Soft nontender, bowel sounds equal or quadrant x4, no guarding, no rebound no CVA tendernes Musculoskeletal: Tenderness at the anterior aspect of the right knee, no edema, no lacerations, no abrasions, limited range of motion with knee flexion., +2 pulses in dorsalis pedis and posterior tibialis, 5 out of 5 strength. Skin: Warmth, no rashes or lesions, no cyanosis or diaphoresis Neurologic: AAO x 3, CN 2-12 intact, Psychiatric: Mood and affect normal, judgment normal Limitations: no limitations Course Vital Signs 06/16/19 06/17/19 22:21 00:19 Temperature 98.5 F 98.5 F Pulse Rate 69 72 Respiratory 20 18 Rate Blood Pressure 113/66 116/86 O2 Sat by Pulse 99 100 Oximetry Medical Decision Making - Medical Decision Making Patient is a 38-year-old female presenting to the emergency department with a chief complaint of knee pain. X-ray of the right knee is unremarkable. Patient lost her balance and fell on the right knee. Suspect the patient has suffered a contusion to the region. There is no bone deformities. Patient does have limited range of motion with flexion. I advised the patient's alternate between Tylenol and ibuprofen for pain control. Strict return parameters were thoroughly discussed with patient was understanding and agreeable. Patient asked to follow-up with orthopedics if symptoms not improved within a week. Case discussed with physician. Disposition Clinical Impression: Contusion of knee, right Disposition: HOME SELF-CARE Condition: Stable Instructions (If sedation given, give patient instructions): Knee Pain (ED) Additional Instructions: Alternate between Tylenol and ibuprofen for pain control. Please return to emergency department is symptoms worsen. Apply ice compress to minimize symptoms. Is patient prescribed a controlled substance at d/c from ED?: No Referrals: Mat Eckert Jr, DO [Primary Care Provider] - 1-2 days Time of Disposition: 23:42
[2019-06-17 00:21] VITALS: BP 116/86; PULSE 72; RESP 18
== END 2019-06-17 | disposition home or self-care (01) ==
LOC: EC 22:14
DX: S80.01XA Contusion of right knee, initial encounter (principal); Z88.5 Allergy status to narcotic agent; Z88.6 Allergy status to analgesic agent; Z88.8 Allergy status to other drugs, medicaments and biological substances; Z91.041 Radiographic dye allergy status; Z91.048 Other nonmedicinal substance allergy status; Z86.14 Personal history of Methicillin resistant Staphylococcus aureus infection; Z86.73 Personal history of transient ischemic attack (TIA), and cerebral infarction without residual deficits; W01.0XXA Fall on same level from slipping, tripping and stumbling without subsequent striking against object, initial encounter; Y92.009 Unspecified place in unspecified non-institutional (private) residence as the place of occurrence of the external cause
CPT/HCPCS: 99283

== ENCOUNTER → 2019-07-02 | Outpatient (CLI) | payer MEDICARE, OTHER ==
[2019-07-02 14:14] LABS: Anisocytosis Slight; Basophils % (A) 0 %; Eosinophils # (A) 0.2 k/uL (0-0.7); Eosinophils % (A) 2 %; HCT 30.6 % (34.0-46.0); HGB 9.2 gm/dL (11.4-16.0); Hypochromasia Marked; Lymphocytes % (A) 24 %; MCH 20.9 pg (25.0-35.0); MCHC 30.3 g/dL (31.0-37.0); MCV 69.2 fL (80.0-100.0); Mean Platelet Volume 6.5; Microcytosis Marked; Monocytes # (A) 0.3 k/uL (0-1.0); Monocytes % (A) 4 %; Neutrophils # (A) 5.8 k/uL (1.3-7.7); Neutrophils % (A) 68 %; Platelet Count 376 k/uL (150-450); RBC 4.42 m/uL (3.80-5.40); RDW 17.7 % (11.5-15.5); WBC 8.5 k/uL (3.8-10.6)
[2019-07-02 20:25] LABS: Ferritin 4.5 ng/mL (10.0-291.0); Iron Saturation 4.01 (12.00-45.00)
== END ==
LOC: LABWHC1 13:29
PROVIDERS: ATTEND Nurse Practitioner Family
DX: D64.9 Anemia, unspecified (principal); E88.9 Metabolic disorder, unspecified
CPT/HCPCS: 36415; 82728; 83540; 83550; 85025

== ENCOUNTER 2019-07-06 16:50 | Emergency (ER) | payer MEDICARE, OTHER ==
[2019-07-06 16:54] VITALS: BP 117/56; PULSE 77; TEMP 97.8
[2019-07-06] MEDS ORDERED: SODIUM CHLORIDE 0.9% 500 ML 500 ML IV STA (17:00)
--- NOTE | 2019-07-06 19:02 | US ---
EXAMINATION TYPE: US abdomen APPY DATE OF EXAM: 07/06/2019 COMPARISON: CT, US CLINICAL HISTORY: RLQ . RLQ pain x 1 day. APPENDIX Is there inflammatory changes or free fluid present: Multiple hypoechoic areas seen in the RLQ. Larg est measures: 1.5 x 2.7 x 0.9 cm. Appendix is not seen with certainty. IMPRESSION: Appendix not seen. No sign of appendicitis. There are some apparent pericecal lymph node s.
--- NOTE | 2019-07-06 19:03 | ED ---
General Adult HPI - General Chief complaint: Abdominal Pain Stated complaint: Cyst Time Seen by Provider: 07/06/19 16:55 Source: patient, RN notes reviewed, old records reviewed Mode of arrival: ambulatory Limitations: no limitations - History of Present Illness Initial comments: 38-year-old female patient past history of right ovarian cyst presents to ED complaining of right adnexal pain. Patient reports that has been ongoing for months but got worse today. Patient forced this feels identical to the discomfort caused by her right ovarian cysts in the past. Denies any other complaints this time. Patient is status post tubal ligation. Systemic: Pt denies fatigue, fever/chills, rash. Pt denies weakness, night sweats, weight loss. Neuro: Pt denies headache, visual disturbances, syncope or pre-syncope. HEENT: Pt denies ocular discharge or irritation, otalgia, rhinorrhea, pharyngitis or notable lymphadenopathy. Cardiopulmonary: Pt denies chest pain, SOB, heart palpitations, dyspnea on exertion. Abdominal/GI: Pt denies n/v/d. : Pt denies dysuria, burning w/ urination, frequency/urgency. Denies new onset urinary or bowel incontinence. MSK: Pt denies myalgia, loss of strength or function in extremities. Neuro: Pt denies new onset weakness, paresthesias. - Related Data Home Medications Medication Instructions Recorded Confirmed No Known Home Medications 06/16/19 06/16/19 Allergies Allergy/AdvReac Type Severity Reaction Status Date / Time Iodinated Contrast Media Allergy Rash/Hives Verified 07/06/19 16:54 [Iodinated Contrast Media - IV Dye] iodine Allergy Rash/Hives Verified 07/06/19 16:54 Iodine and Iodide Containing Allergy Rash/Hives Verified 07/06/19 16:54 Produc bupropion HCl AdvReac Unknown Homicidal Verified 07/06/19 16:54 [From Wellbutrin] Ideation aspirin AdvReac Nausea & Verified 07/06/19 16:54 Vomiting hydromorphone HCl AdvReac Diarrhea Verified 07/06/19 16:54 [From Dilaudid] propoxyphene napsylate AdvReac Nausea & Verified 07/06/19 16:54 [From Darvocet-N] Vomiting steroids Allergy Rash/Hives Uncoded 07/06/19 16:54 Review of Systems ROS Statement: Those systems with pertinent positive or pertinent negative responses have been documented in the HPI. ROS Other: All systems not noted in ROS Statement are negative. Past Medical History Past Medical History: Asthma, CVA/TIA, Hypertension, Seizure Disorder Additional Past Medical History / Comment(s): 11/2017 TIA or CVA (pt unsure) with resolved L sided weakness/aphasia but states still has short term memory loss, last seizure in 2017, frequent kidney infections, kidney stones she passed on her own, chronic cervical and low back pain, past fractured coccyx, gestational diabetes. History of Any Multi-Drug Resistant Organisms: MRSA Date of last positivie culture/infection: 1999,2013, 2016 MDRO Source:: right leg Past Surgical History: Appendectomy, Section, Cholecystectomy, Tonsillectomy, Tubal Ligation Additional Past Surgical History / Comment(s): Multiple ear surgeries (x15 left ear & 13 right ear) ended up with eardrum replacements, x2 Past Anesthesia/Blood Transfusion Reactions: No Reported Reaction Additional Past Anesthesia/Blood Transfusion Reaction / Comment(s): PT STATES DIFFICULTY WAKING UP. PTS FATHER ALSO HAS DIFFICULTY WAKING UP. Past Psychological History: ADD/ADHD, Anxiety Smoking Status: Never smoker Past Alcohol Use History: None Reported Past Drug Use History: None Reported - Past Family History Mother Family Medical History: Cancer Additional Family Medical History / Comment(s): KIDNEY CANCER- in 2012 at the age of 68yrs. Father Family Medical History: CVA/TIA, Myocardial Infarction (ND) Additional Family Medical History / Comment(s): Father had 8 CVAs and 2 MIs. His first ND was at age 69yrs and 2nd ND was at age 71yrs. He has a pacemaker. He is dyslexic. General Exam - General Exam Comments Initial Comments: Constitutional: NAD, AOX3, Pt has pleasant affect. HEENT: NC/AT, trachea midline, neck supple, no lymphadenopathy. Posterior pharynx non erythematous, without exudates. External ears appear normal, without discharge. Mucous membranes moist. Eyes PERRLA, EOM intact. There is no scleral icterus. No pallor noted. Cardiopulmonary: RRR, no murmurs, rubs or gallops, no JVD noted. Lungs CTAB in anterior and posterior estrella. No peripheral edema. Abdominal exam: Abdomen soft and non-distended. Abdomen right lower quadrant, right adnexal region tender to palpation.. Bowel sounds active in LLQ. No hepatosplenomegaly. No ecchymosis Neuro: CN II-XII grossly intact. No nuchal rigidity. No raccon eyes, no abreu sign, no hemotympanum. No cervical spinal tenderness. MSK: No posterior calf tenderness bilaterally, homans sign negative bilaterally. Posterior tibialis and radial pulse +2 bilaterally. Sensation intact in upper and lower extremities. Full active ROM in upper and lower extremities, 5/5 stregnth. Limitations: no limitations Course Vital Signs 07/06/19 07/06/19 16:52 19:00 Temperature 97.8 F Pulse Rate 77 Respiratory 20 16 Rate Blood Pressure 117/56 O2 Sat by Pulse 99 Oximetry Medical Decision Making - Medical Decision Making 38-year-old female patient past history of right ovarian cyst presents to ED complaining of right adnexal pain. Patient reports that has been ongoing for months but got worse today. Patient forced this feels identical to the discomfort caused by her right ovarian cysts in the past. Denies any other complaints this time. Patient is status post tubal ligation. Pt VSS, afebrile. PHysical exam displayed: abdomen right lower quadrant, right adnexal region tend er to palpation. Laboratory investigations revealed mild leukocytosis 11.1. Otherwise non-impressive. Lactic acid less than 0.5. UA displayed large leukocyte Estrace. 3 red blood cells. 1 white blood cell. ECG negative. Urine was cultured. Her vaginal ultrasound displayed cervical cysts and uterine fibroids. No evidence of torsion. 2.5 cm right ovarian cyst. Right lower quadrant ultrasound did not display appendix. No sign of appendicitis. Some apparent pericecal lymph nodes. Patient offered CAT scan, declined due to radiation burn. Patient declined pelvic exam. Patient states that this pain feels identical to her ovarian cyst pain in the past. Patient feeling much improved with Tylenol. Patient will be discharged, follow-up with primary care provider. Patient has opted physician printed circuit boards plasma etcher follow-up as well scheduled. Return precautions discussed. Case discussed with Dr. Aquino. - Lab Data Result diagrams: 07/06/19 18:50 07/06/19 18:50 Lab Results 07/06/19 07/06/19 07/06/19 Range/Units 18:50 18:50 18:50 WBC 11.1 H (3.8-10.6) k/uL RBC 4.38 (3.80-5.40) m/uL Hgb 9.2 L (11.4-16.0) gm/dL Hct 30.3 L (34.0-46.0) % MCV 69.2 L (80.0-100.0) fL MCH 20.9 L (25.0-35.0) pg MCHC 30.2 L (31.0-37.0) g/dL RDW 18.2 H (11.5-15.5) % Plt Count 375 (150-450) k/uL Neutrophils % 73 % Lymphocytes % 19 % Monocytes % 4 % Eosinophils % 2 % Basophils % 0 % Neutrophils # 8.1 H (1.3-7.7) k/uL Lymphocytes # 2.1 (1.0-4.8) k/uL Monocytes # 0.4 (0-1.0) k/uL Eosinophils # 0.2 (0-0.7) k/uL Basophils # 0.0 (0-0.2) k/uL Hypochromasia Marked Anisocytosis Slight Microcytosis Marked Sodium 140 (137-145) mmol/L Potassium 4.2 (3.5-5.1) mmol/L Chloride 104 (98-107) mmol/L Carbon Dioxide 27 (22-30) mmol/L Anion Gap 9 mmol/L BUN 13 (7-17) mg/dL Creatinine 0.65 (0.52-1.04) mg/dL Est GFR (CKD-EPI)AfAm >90 (>60 ml/min/1.73 sqM) Est GFR (CKD-EPI)NonAf >90 (>60 ml/min/1.73 sqM) Glucose 97 (74-99) mg/dL Plasma Lactic Acid Saleem <0.5 L (0.7-2.0) mmol/L Calcium 9.0 (8.4-10.2) mg/dL Total Bilirubin 0.2 (0.2-1.3) mg/dL AST 16 (14-36) U/L ALT 14 (9-52) U/L Alkaline Phosphatase 66 (38-126) U/L Total Protein 7.4 (6.3-8.2) g/dL Albumin 3.9 (3.5-5.0) g/dL Lipase 83 (23-300) U/L Urine Color Urine Appearance (Clear) Urine pH (5.0-8.0) Ur Specific [place] (1.001-1.035) Urine Protein (Negative) Urine Glucose (UA) (Negative) Urine Ketones (Negative) Urine Blood (Negative) Urine Nitrite (Negative) Urine Bilirubin (Negative) Urine Urobilinogen (<2.0) mg/dL Ur Leukocyte Esterase (Negative) Urine RBC (0-5) /hpf Urine WBC (0-5) /hpf Ur Squamous Epith Cells (0-4) /hpf Urine Mucus (None) /hpf Urine HCG, Qual (Not Detectd) 07/06/19 07/06/19 Range/Units 19:45 19:45 WBC (3.8-10.6) k/uL RBC (3.80-5.40) m/uL Hgb (11.4-16.0) gm/dL Hct (34.0-46.0) % MCV (80.0-100.0) fL MCH (25.0-35.0) pg MCHC (31.0-37.0) g/dL RDW (11.5-15.5) % Plt Count (150-450) k/uL Neutrophils % % Lymphocytes % % Monocytes % % Eosinophils % % Basophils % % Neutrophils # (1.3-7.7) k/uL Lymphocytes # (1.0-4.8) k/uL Monocytes # (0-1.0) k/uL Eosinophils # (0-0.7) k/uL Basophils # (0-0.2) k/uL Hypochromasia Anisocytosis Microcytosis Sodium (137-145) mmol/L Potassium (3.5-5.1) mmol/L Chloride (98-107) mmol/L Carbon Dioxide (22-30) mmol/L Anion Gap mmol/L BUN (7-17) mg/dL Creatinine (0.52-1.04) mg/dL Est GFR (CKD-EPI)AfAm (>60 ml/min/1.73 sqM) Est GFR (CKD-EPI)NonAf (>60 ml/min/1.73 sqM) Glucose (74-99) mg/dL Plasma Lactic Acid Saleem (0.7-2.0) mmol/L Calcium (8.4-10.2) mg/dL Total Bilirubin (0.2-1.3) mg/dL AST (14-36) U/L ALT (9-52) U/L Alkaline Phosphatase (38-126) U/L Total Protein (6.3-8.2) g/dL Albumin (3.5-5.0) g/dL Lipase (23-300) U/L Urine Color Yellow Urine Appearance Cloudy H (Clear) Urine pH 6.0 (5.0-8.0) Ur Specific [place] 1.025 (1.001-1.035) Urine Protein Trace H (Negative) Urine Glucose (UA) Negative (Negative) Urine Ketones Negative (Negative) Urine Blood Negative (Negative) Urine Nitrite Negative (Negative) Urine Bilirubin Negative (Negative) Urine Urobilinogen <2.0 (<2.0) mg/dL Ur Leukocyte Esterase Large H (Negative) Urine RBC 3 (0-5) /hpf Urine WBC 1 (0-5) /hpf Ur Squamous Epith Cells 4 (0-4) /hpf Urine Mucus Occasional H (None) /hpf Urine HCG, Qual Not Detected (Not Detectd) Disposition Clinical Impression: Ovarian cyst Disposition: HOME SELF-CARE Condition: Stable Instructions (If sedation given, give patient instructions): Ovarian Cyst (ED) Additional Instructions: Patient to adhere to previously discussed treatment plan and will take medication(s) as directed. Patient to follow up with PCP in 1-2 days. Patient to return to ED if symptoms do not improve. Follow-up with [facility] PSYCHIATRI[facility] as scheduled. Return to ER if condition worsens. Is patient prescribed a controlled substance at d/c from ED?: No Referrals: Rogerio Merino MD [Primary Care Provider] - 1-2 days
[2019-07-06 19:06] VITALS: RESP 16
[2019-07-06] MEDS ORDERED: ACETAMINOPHEN TAB 325 MG TAB PO STA (19:07)
--- NOTE | 2019-07-06 19:09 | US ---
EXAMINATION TYPE: US transvaginal DATE OF EXAM: 07/06/2019 COMPARISON: US 2019, CT CLINICAL HISTORY: RLQ. RLQ pain x 1 day. 2 C-Sections. Tubal ligation. Hx Twin . . Hx o varian cyst. TECHNIQUE: Transvaginal (TV). Date of LMP: 06/14/2019 EXAM MEASUREMENTS: Uterus: 10.6 x 6.1 x 4.8 cm Endometrial Stripe: 1.29 cm Right Ovary: 4.2 x 3.4 x 3.0 cm Left Ovary: not seen Limited due to body habitus. 1. Uterus: Anteverted. Measures upper limits of normal. Hypoechoic area seen posteriorly measurin.2 x 1.5 x 1.1 cm. Multiple anechoic areas seen in ROSALINDA. Cluster of complex areas seen in ROSALINDA. Large st hypoechoic area seen in cervix measures: 1.0 x 1.1 x 1.1 cm. 2. Endometrium: Measures 1.29 cm 3. Right Ovary: Appears slightly enlarged. Hypoechoic area seen measurin.5 x 2.8 x 2.6 cm. Limit ed arterial evaluation.?Peripheral arterial flow shown. Venous flow shown. 4. Left Ovary: not seen 5. Bilateral Adnexa: appears wnl 6. Posterior cul-de-sac: appears wnl IMPRESSION: Cervical cysts and uterine fibroids. No evidence of ovarian torsion. 2.5 cm right ovarian cyst. No solid adnexal mass.
[2019-07-06 19:17] LABS: Anisocytosis Slight; Basophils % (A) 0 %; Eosinophils # (A) 0.2 k/uL (0-0.7); Eosinophils % (A) 2 %; HCT 30.3 % (34.0-46.0); HGB 9.2 gm/dL (11.4-16.0); Hypochromasia Marked; Lymphocytes # (A) 2.1 k/uL (1.0-4.8); Lymphocytes % (A) 19 %; MCH 20.9 pg (25.0-35.0); MCHC 30.2 g/dL (31.0-37.0); MCV 69.2 fL (80.0-100.0); Mean Platelet Volume 6.3; Microcytosis Marked; Monocytes # (A) 0.4 k/uL (0-1.0); Monocytes % (A) 4 %; Neutrophils # (A) 8.1 k/uL (1.3-7.7); Neutrophils % (A) 73 %; Platelet Count 375 k/uL (150-450); RBC 4.38 m/uL (3.80-5.40); RDW 18.2 % (11.5-15.5); WBC 11.1 k/uL (3.8-10.6)
[2019-07-06 19:24] LABS: ALT 14 U/L (9-52); AST 16 U/L (14-36); African American GFR (CKD) >90 (>60 ml/min/1.73 sqM); Albumin 3.9 g/dL (3.5-5.0); Alkaline Phosphatase 66 U/L (38-126); Anion Gap 9 mmol/L; Blood Urea Nitrogen 13 mg/dL (7-17); Carbon Dioxide 27 mmol/L (22-30); Chloride 104 mmol/L (98-107); Glucose 97 mg/dL (74-99); Potassium 4.2 mmol/L (3.5-5.1); Sodium 140 mmol/L (137-145); Total Bilirubin 0.2 mg/dL (0.2-1.3); Total Protein 7.4 g/dL (6.3-8.2)
[2019-07-06 20:12] LABS: Appearance,Urine Cloudy (Clear); Bilirubin,Urine Negative (Negative); Blood,Urine Negative (Negative); Color,Urine Yellow; Glucose,Urine (UA) Negative (Negative); Ketones,Urine Negative (Negative); Leukocyte Esterase,Urine Large (Negative); Mucus,Urine Occasional /hpf; Nitrite,Urine Negative (Negative); Protein,Urine Trace (Negative); RBC,Urine 3 /hpf (0-5); Specific Gravity,Urine 1.025 (1.001-1.035); Squamous Epithelial Cell,Urine 4 /hpf (0-4); Urobilinogen,Urine <2.0 mg/dL (<2.0); WBC,Urine 1 /hpf (0-5)
== END 2019-07-06 20:05 | disposition home or self-care (01) ==
LOC: EEVIPCON 16:50 → EC 16:50
DX: N83.201 Unspecified ovarian cyst, right side (principal); N88.8 Other specified noninflammatory disorders of cervix uteri; D25.9 Leiomyoma of uterus, unspecified; I10 Essential (primary) hypertension; Z91.041 Radiographic dye allergy status; Z91.048 Other nonmedicinal substance allergy status; Z88.8 Allergy status to other drugs, medicaments and biological substances; Z88.5 Allergy status to narcotic agent; Z88.6 Allergy status to analgesic agent; Z86.73 Personal history of transient ischemic attack (TIA), and cerebral infarction without residual deficits; Z90.89 Acquired absence of other organs; Z90.49 Acquired absence of other specified parts of digestive tract; Z32.02 Encounter for pregnancy test, result negative
CPT/HCPCS: 36415; 76705; 76830; 80053; 81001; 81025; 83605; 83690; 85025; 93976; 99284

== ENCOUNTER 2019-07-08 10:44 | Emergency (ER) | payer MEDICARE, OTHER ==
[2019-07-08 11:03] VITALS: BP 128/74; PULSE 81; RESP 16; TEMP 98.2
[2019-07-08] MEDS ORDERED: SODIUM CHLORIDE 0.9% 500 ML 500 ML IV ONE (11:21)
[2019-07-08] MEDS ORDERED: KETOROLAC 30 MG/ML 1 ML VIAL IVP STA (11:21)
--- NOTE | 2019-07-08 11:21 | ED ---
General Adult HPI - General Chief complaint: Urogenital Stated complaint: R Side Pain Time Seen by Provider: 07/08/19 11:08 Source: patient, RN notes reviewed, old records reviewed Mode of arrival: wheelchair Limitations: no limitations - History of Present Illness Initial comments: Patient is a 38-year-old female, she presents today for chief complaint of right-sided lower that she was told she has an ovarian cyst. Patient reports that she has had increased pain over the past few days. She went to some dysuria and back pain as well and ultrasound which showed an ovarian cyst measuring 2 cm. She states she is not having [employer] at this time. She's been here multiple times for similar ovarian cyst pain. She denies any vaginal discharge. She has a history of chronic anemia. Patient denies any recent fever, chills, shortness of breath, chest pain, back pain, abdominal pain, nausea vomiting, numbness or tingling, dysuria or hematuria, constipation or diarrhea, headaches or visual changes, or any other current symptoms - Related Data Previous Rx's Medication Instructions Recorded Ibuprofen 600 mg PO TID #30 tablet 07/08/19 Nitrofurantoin Monohyd/M-Cryst 100 mg PO Q12HR #14 cap 07/08/19 [Macrobid] Allergies Allergy/AdvReac Type Severity Reaction Status Date / Time Iodinated Contrast Media Allergy Rash/Hives Verified 07/08/19 11:03 [Iodinated Contrast Media - IV Dye] iodine Allergy Rash/Hives Verified 07/08/19 11:03 Iodine and Iodide Containing Allergy Rash/Hives Verified 07/08/19 11:03 Produc bupropion HCl AdvReac Unknown Homicidal Verified 07/08/19 11:03 [From Wellbutrin] Ideation aspirin AdvReac Nausea & Verified 07/08/19 11:03 Vomiting hydromorphone HCl AdvReac Diarrhea Verified 07/08/19 11:03 [From Dilaudid] propoxyphene napsylate AdvReac Nausea & Verified 07/08/19 11:03 [From Darvocet-N] Vomiting steroids Allergy Rash/Hives Uncoded 07/08/19 11:03 Review of Systems ROS Statement: Those systems with pertinent positive or pertinent negative responses have been documented in the HPI. ROS Other: All systems not noted in ROS Statement are negative. Past Medical History Past Medical History: Asthma, CVA/TIA, Hypertension, Seizure Disorder Additional Past Medical History / Comment(s): 11/2017 TIA or CVA (pt unsure) with resolved L sided weakness/aphasia but states still has short term memory loss, last seizure in 2017, frequent kidney infections, kidney stones she passed on her own, chronic cervical and low back pain, past fractured coccyx, gestational diabetes. History of Any Multi-Drug Resistant Organisms: MRSA Date of last positivie culture/infection: 1999,2013, 2016 MDRO Source:: right leg Past Surgical History: Appendectomy, Section, Cholecystectomy, Tonsillectomy, Tubal Ligation Additional Past Surgical History / Comment(s): Multiple ear surgeries (x15 left ear & 13 right ear) ended up with eardrum replacements, x2 Past Anesthesia/Blood Transfusion Reactions: No Reported Reaction Additional Past Anesthesia/Blood Transfusion Reaction / Comment(s): PT STATES DIFFICULTY WAKING UP. PTS FATHER ALSO HAS DIFFICULTY WAKING UP. Past Psychological History: ADD/ADHD, Anxiety Smoking Status: Never smoker Past Alcohol Use History: None Reported Past Drug Use History: None Reported - Past Family History Mother Family Medical History: Cancer Additional Family Medical History / Comment(s): KIDNEY CANCER- in 2012 at the age of 68yrs. Father Family Medical History: CVA/TIA, Myocardial Infarction (ND) Additional Family Medical History / Comment(s): Father had 8 CVAs and 2 MIs. His first ND was at age 69yrs and 2nd ND was at age 71yrs. He has a pacemaker. He is dyslexic. General Exam - General Exam Comments Initial Comments: 38-year-old female. Alert and oriented. No distress. Limitations: no limitations General appearance: alert, in no apparent distress Head exam: Present: atraumatic, normocephalic, normal inspection Eye exam: Present: normal appearance, PERRL, EOMI. Absent: scleral icterus, conjunctival injection, periorbital swelling ENT exam: Present: normal exam Neck exam: Present: normal inspection. Absent: tenderness, meningismus, lymphadenopathy Respiratory exam: Present: normal lung sounds bilaterally. Absent: respiratory distress, wheezes, rales, rhonchi, stridor Cardiovascular Exam: Present: regular rate, normal rhythm, normal heart sounds. Absent: systolic murmur, diastolic murmur, rubs, gallop, clicks GI/Abdominal exam: Present: soft, tenderness ( minimal RLQ tenderness), normal bowel sounds. Absent: distended, guarding, rebound, rigid Course Vital Signs 07/08/19 11:01 Temperature 98.2 F Pulse Rate 81 Respiratory 16 Rate Blood Pressure 128/74 O2 Sat by Pulse 98 Oximetry Medical Decision Making - Medical Decision Making 38-year-old female presents for right-sided abdominal pain persistent since she was in the ER past week. She reports she is diagnosed with ovarian cysts. She's had persistent pain since that time. At this time patient's labwork was reviewed. Does show signs of anemia but this is chronic. Urinalysis mild UTI, urine culture will be completed. Patient was given IV Toradol, and states that her pain is diminished. I reviewed patient's ultrasound shows show 2.5 cm right-sided ovarian cyst. I discussed with persistent pain is unlikely for history of torsion at this time. I discussed the Patient needs follow-up with an [employer]. Patient is agreeable to treatment plan will comply. Return parameters were discussed. - Lab Data Result diagrams: 07/08/19 11:30 07/08/19 11:30 Lab Results 07/08/19 07/08/19 07/08/19 Range/Units 11:30 11:30 11:30 WBC 10.3 (3.8-10.6) k/uL RBC 4.53 (3.80-5.40) m/uL Hgb 9.0 L (11.4-16.0) gm/dL Hct 31.3 L (34.0-46.0) % MCV 69.0 L (80.0-100.0) fL MCH 20.0 L (25.0-35.0) pg MCHC 28.9 L (31.0-37.0) g/dL RDW 18.5 H (11.5-15.5) % Plt Count 361 (150-450) k/uL Neutrophils % 76 % Lymphocytes % 17 % Monocytes % 4 % Eosinophils % 1 % Basophils % 0 % Neutrophils # 7.8 H (1.3-7.7) k/uL Lymphocytes # 1.7 (1.0-4.8) k/uL Monocytes # 0.4 (0-1.0) k/uL Eosinophils # 0.2 (0-0.7) k/uL Basophils # 0.0 (0-0.2) k/uL Hypochromasia Marked Anisocytosis Slight Microcytosis Marked Sodium (137-145) mmol/L Potassium (3.5-5.1) mmol/L Chloride (98-107) mmol/L Carbon Dioxide (22-30) mmol/L Anion Gap mmol/L BUN (7-17) mg/dL Creatinine (0.52-1.04) mg/dL Est GFR (CKD-EPI)AfAm (>60 ml/min/1.73 sqM) Est GFR (CKD-EPI)NonAf (>60 ml/min/1.73 sqM) Glucose (74-99) mg/dL Calcium (8.4-10.2) mg/dL Total Bilirubin (0.2-1.3) mg/dL AST (14-36) U/L ALT (9-52) U/L Alkaline Phosphatase (38-126) U/L Total Protein (6.3-8.2) g/dL Albumin (3.5-5.0) g/dL Urine Color Yellow Urine Appearance Cloudy H (Clear) Urine pH 5.5 (5.0-8.0) Ur Specific [place] 1.022 (1.001-1.035) Urine Protein Negative (Negative) Urine Glucose (UA) Negative (Negative) Urine Ketones Negative (Negative) Urine Blood Negative (Negative) Urine Nitrite Negative (Negative) Urine Bilirubin Negative (Negative) Urine Urobilinogen <2.0 (<2.0) mg/dL Ur Leukocyte Esterase Moderate H (Negative) Urine RBC 1 (0-5) /hpf Urine WBC 12 H (0-5) /hpf Ur Squamous Epith Cells 6 H (0-4) /hpf Urine Bacteria Occasional H (None) /hpf Urine Mucus Moderate H (None) /hpf Urine HCG, Qual Not Detected (Not Detectd) 07/08/19 Range/Units 11:30 WBC (3.8-10.6) k/uL RBC (3.80-5.40) m/uL Hgb (11.4-16.0) gm/dL Hct (34.0-46.0) % MCV (80.0-100.0) fL MCH (25.0-35.0) pg MCHC (31.0-37.0) g/dL RDW (11.5-15.5) % Plt Count (150-450) k/uL Neutrophils % % Lymphocytes % % Monocytes % % Eosinophils % % Basophils % % Neutrophils # (1.3-7.7) k/uL Lymphocytes # (1.0-4.8) k/uL Monocytes # (0-1.0) k/uL Eosinophils # (0-0.7) k/uL Basophils # (0-0.2) k/uL Hypochromasia Anisocytosis Microcytosis Sodium 137 (137-145) mmol/L Potassium 4.1 (3.5-5.1) mmol/L Chloride 100 (98-107) mmol/L Carbon Dioxide 28 (22-30) mmol/L Anion Gap 9 mmol/L BUN 10 (7-17) mg/dL Creatinine 0.65 (0.52-1.04) mg/dL Est GFR (CKD-EPI)AfAm >90 (>60 ml/min/1.73 sqM) Est GFR (CKD-EPI)NonAf >90 (>60 ml/min/1.73 sqM) Glucose 97 (74-99) mg/dL Calcium 9.4 (8.4-10.2) mg/dL Total Bilirubin 0.2 (0.2-1.3) mg/dL AST 14 (14-36) U/L ALT 13 (9-52) U/L Alkaline Phosphatase 63 (38-126) U/L Total Protein 7.7 (6.3-8.2) g/dL Albumin 4.0 (3.5-5.0) g/dL Urine Color Urine Appearance (Clear) Urine pH (5.0-8.0) Ur Specific [place] (1.001-1.035) Urine Protein (Negative) Urine Glucose (UA) (Negative) Urine Ketones (Negative) Urine Blood (Negative) Urine Nitrite (Negative) Urine Bilirubin (Negative) Urine Urobilinogen (<2.0) mg/dL Ur Leukocyte Esterase (Negative) Urine RBC (0-5) /hpf Urine WBC (0-5) /hpf Ur Squamous Epith Cells (0-4) /hpf Urine Bacteria (None) /hpf Urine Mucus (None) /hpf Urine HCG, Qual (Not Detectd) Disposition Clinical Impression: Urinary tract infection, Right lateral abdominal pain Disposition: HOME SELF-CARE Condition: Good Instructions (If sedation given, give patient instructions): Urinary Tract Infection in Women (ED) Additional Instructions: Please use medication as discussed. Please follow up with family doctor if symptoms have not improved over the next two days. Please return to the emergency room if your symptoms increase or worsen or for any other concerns. follow Up with [employer]. Prescriptions: Ibuprofen 600 mg PO TID #30 tablet Nitrofurantoin Monohyd/M-Cryst [Macrobid] 100 mg PO Q12HR #14 cap Is patient prescribed a controlled substance at d/c from ED?: No Referrals: Rogerio Merino MD [Primary Care Provider] - 1-2 days Time of Disposition: 12:20
[2019-07-08 11:42] LABS: Anisocytosis Slight; Basophils % (A) 0 %; Eosinophils # (A) 0.2 k/uL (0-0.7); Eosinophils % (A) 1 %; HCT 31.3 % (34.0-46.0); Hypochromasia Marked; Lymphocytes # (A) 1.7 k/uL (1.0-4.8); Lymphocytes % (A) 17 %; MCHC 28.9 g/dL (31.0-37.0); Microcytosis Marked; Monocytes # (A) 0.4 k/uL (0-1.0); Monocytes % (A) 4 %; Neutrophils # (A) 7.8 k/uL (1.3-7.7); Neutrophils % (A) 76 %; Platelet Count 361 k/uL (150-450); RBC 4.53 m/uL (3.80-5.40); RDW 18.5 % (11.5-15.5); WBC 10.3 k/uL (3.8-10.6)
[2019-07-08 11:47] LABS: Appearance,Urine Cloudy (Clear); Bacteria,Urine Occasional /hpf; Bilirubin,Urine Negative (Negative); Blood,Urine Negative (Negative); Color,Urine Yellow; Glucose,Urine (UA) Negative (Negative); Ketones,Urine Negative (Negative); Leukocyte Esterase,Urine Moderate (Negative); Mucus,Urine Moderate /hpf; Nitrite,Urine Negative (Negative); PH, Urine 5.5 (5.0-8.0); Protein,Urine Negative (Negative); RBC,Urine 1 /hpf (0-5); Specific Gravity,Urine 1.022 (1.001-1.035); Squamous Epithelial Cell,Urine 6 /hpf (0-4); Urobilinogen,Urine <2.0 mg/dL (<2.0)
[2019-07-08 11:50] LABS: ALT 13 U/L (9-52); AST 14 U/L (14-36); African American GFR (CKD) >90 (>60 ml/min/1.73 sqM); Alkaline Phosphatase 63 U/L (38-126); Anion Gap 9 mmol/L; Blood Urea Nitrogen 10 mg/dL (7-17); Calcium 9.4 mg/dL (8.4-10.2); Carbon Dioxide 28 mmol/L (22-30); Chloride 100 mmol/L (98-107); Glucose 97 mg/dL (74-99); Potassium 4.1 mmol/L (3.5-5.1); Sodium 137 mmol/L (137-145); Total Bilirubin 0.2 mg/dL (0.2-1.3); Total Protein 7.7 g/dL (6.3-8.2)
[2019-07-08] MEDS ORDERED: traMADol 50 MG STARTER PACK 3 TAB BTL PO STA (12:21)
== END 2019-07-08 12:35 | disposition home or self-care (01) ==
LOC: EC 10:44
DX: N39.0 Urinary tract infection, site not specified (principal); D64.9 Anemia, unspecified; N83.201 Unspecified ovarian cyst, right side; I69.311 Memory deficit following cerebral infarction; Z88.5 Allergy status to narcotic agent; Z88.6 Allergy status to analgesic agent; Z88.8 Allergy status to other drugs, medicaments and biological substances; Z91.041 Radiographic dye allergy status; Z91.048 Other nonmedicinal substance allergy status; Z86.14 Personal history of Methicillin resistant Staphylococcus aureus infection; Z90.49 Acquired absence of other specified parts of digestive tract; Z80.51 Family history of malignant neoplasm of kidney
CPT/HCPCS: 36415; 80053; 85025; 81001; 81025; 87086; 99284; 96374; J1885

== ENCOUNTER 2019-11-21 13:06 | Emergency (ER) | payer MEDICARE, OTHER ==
[2019-11-21 13:22] VITALS: BP 123/76; PULSE 62; RESP 20; TEMP 97.8
[2019-11-21] MEDS ORDERED: ETODOLAC 400 MG TAB PO STA (13:37)
--- NOTE | 2019-11-21 14:17 | XR ---
Chest x-ray with left RIBS HISTORY: Trauma and pain Frontal view of the chest 4 views of the left ribs submitted and correlated prior chest x-ray 05/14/20 Chest x-ray shows a stable appearance. There is no pneumothorax or pleural effusion. Cardiac mediasti nal silhouette, pulmonary vascularity and belen are unchanged. No evident airspace disease. There is n o displaced rib fracture. IMPRESSION: No acute abnormality.
--- NOTE | 2019-11-21 14:23 | XR ---
Lumbar spine HISTORY: Trauma and pain 3 views the lumbar spine correlated to prior lumbar spine 08/22/2012 Bone mineralization is maintained. Lumbar vertebral bodies show preserved height and alignment. Disc spaces are maintained. There is mild spondylosis. Facet arthropathy change. IMPRESSION: No acute fracture or subluxation.
--- NOTE | 2019-11-21 14:24 | ED ---
Fall HPI - General Chief Complaint: Fall Stated Complaint: kidney & back pain Time Seen by Provider: 11/21/19 13:23 Source: patient Mode of arrival: ambulatory - History of Present Illness Initial Comments: Patient is a 39-year-old female presenting to emergency Department after slipping and falling on ice today. Patient states she was on her porch and slipped and landed onto her left side. Patient is complaining of left-sided low back pain as well as left-sided rib pains. She denies any shortness of breath, chest pain. She denies hitting her head. She denies being on blood thinners. She has no other complaints today. Upon arrival to ER her vital signs are stable. - Related Data Previous Rx's Medication Instructions Recorded Ibuprofen 600 mg PO TID #30 tablet 07/08/19 Nitrofurantoin Monohyd/M-Cryst 100 mg PO Q12HR #14 cap 07/08/19 [Macrobid] Allergies Allergy/AdvReac Type Severity Reaction Status Date / Time Iodinated Contrast Media Allergy Rash/Hives Verified 11/21/19 13:22 [Iodinated Contrast Media - IV Dye] iodine Allergy Rash/Hives Verified 11/21/19 13:22 Iodine and Iodide Containing Allergy Rash/Hives Verified 11/21/19 13:22 Produc bupropion HCl AdvReac Unknown Homicidal Verified 11/21/19 13:22 [From Wellbutrin] Ideation aspirin AdvReac Nausea & Verified 11/21/19 13:22 Vomiting hydromorphone HCl AdvReac Diarrhea Verified 11/21/19 13:22 [From Dilaudid] propoxyphene napsylate AdvReac Nausea & Verified 11/21/19 13:22 [From Darvocet-N] Vomiting steroids Allergy Rash/Hives Uncoded 11/21/19 13:22 Review of Systems ROS Statement: Those systems with pertinent positive or pertinent negative responses have been documented in the HPI. ROS Other: All systems not noted in ROS Statement are negative. Past Medical History Past Medical History: Asthma, CVA/TIA, Hypertension, Seizure Disorder Additional Past Medical History / Comment(s): 11/2017 TIA or CVA (pt unsure) with resolved L sided weakness/aphasia but states still has short term memory loss, last seizure in 2016, frequent kidney infections, kidney stones she passed on her own, chronic cervical and low back pain, past fractured coccyx, gestational diabetes. History of Any Multi-Drug Resistant Organisms: MRSA Date of last positivie culture/infection: 1999,2013, 2016 MDRO Source:: right leg Past Surgical History: Appendectomy, Section, Cholecystectomy, Tonsillectomy, Tubal Ligation Additional Past Surgical History / Comment(s): Multiple ear surgeries (x15 left ear & 13 right ear) ended up with eardrum replacements, x2 Past Anesthesia/Blood Transfusion Reactions: No Reported Reaction Additional Past Anesthesia/Blood Transfusion Reaction / Comment(s): PT STATES DIFFICULTY WAKING UP. PTS FATHER ALSO HAS DIFFICULTY WAKING UP. Past Psychological History: ADD/ADHD, Anxiety Smoking Status: Never smoker Past Alcohol Use History: None Reported Past Drug Use History: None Reported - Past Family History Mother Family Medical History: Cancer Additional Family Medical History / Comment(s): KIDNEY CANCER- in 2012 at the age of 68yrs. Father Family Medical History: CVA/TIA, Myocardial Infarction ([place]) Additional Family Medical History / Comment(s): Father had 8 CVAs and 2 MIs. His first [place] was at age 69yrs and 2nd [place] was at age 71yrs. He has a pacemaker. He is dyslexic. General Exam - General Exam Comments Initial Comments: GENERAL: Well-appearing, well-nourished and in no acute distress. HEAD: Atraumatic, normocephalic. EYES: Pupils equal round and reactive to light, extraocular movements intact, sclera anicteric, conjunctiva are normal. ENT: Nares patent, oropharynx clear without exudates. Moist mucous membranes. NECK: Normal range of motion, supple without lymphadenopathy or JVD. LUNGS: Breath sounds clear to auscultation bilaterally and equal. No wheezes rales or rhonchi. HEART: Regular rate and rhythm without murmurs, rubs or gallops. ABDOMEN: Soft, nontender, normoactive bowel sounds. No guarding, no rebound. No masses appreciated. : Deferred EXTREMITIES: Normal range of motion, no pitting or edema. No clubbing or cyanosis. Tender to palpation of the left lumbar paraspinals as well as left lower ribs. No b ruising or deformity seen. NEUROLOGICAL: Normal speech, normal gait. PSYCH: Normal mood, normal affect. SKIN: Warm, Dry, normal turgor, no rashes or lesions noted. Limitations: no limitations Course Vital Signs 11/21/19 13:17 Temperature 97.8 F Pulse Rate 62 Respiratory 20 Rate Blood Pressure 123/76 O2 Sat by Pulse 100 Oximetry Medical Decision Making - Medical Decision Making Patient 39-year-old female presenting with left low back and left-sided rib pain after slipping and falling on ice today. X-rays of the lumbar region and the left sided ribs as well as chest x-ray show no acute abnormalities or fractures. I discussed these findings with the patient. Patient was given Toradol the ER. We discussed continuing with Motrin at home as well as ice or heat packs to the area. Patient is agreement this plan of care. Return parameters were discussed with the patient she verbalized understanding. Disposition Clinical Impression: Fall, Contusion of rib on left side, Low back pain Disposition: HOME SELF-CARE Condition: Stable Instructions (If sedation given, give patient instructions): Rib Contusion (ED) Additional Instructions: Please return to the Emergency Department if symptoms worsen or any other concerns. Use heat and/or ice to the area as well as Motrin and Tylenol for pain relief. Is patient prescribed a controlled substance at d/c from ED?: No Referrals: None,Stated [Primary Care Provider] - 1-2 days
== END 2019-11-21 14:39 | disposition home or self-care (01) ==
LOC: EC 13:06
DX: S20.212A Contusion of left front wall of thorax, initial encounter (principal); M54.5 Low back pain; I10 Essential (primary) hypertension; J45.909 Unspecified asthma, uncomplicated; G40.909 Epilepsy, unspecified, not intractable, without status epilepticus; Z91.048 Other nonmedicinal substance allergy status; Z91.041 Radiographic dye allergy status; Z88.5 Allergy status to narcotic agent; Z88.6 Allergy status to analgesic agent; Z88.8 Allergy status to other drugs, medicaments and biological substances; Z86.73 Personal history of transient ischemic attack (TIA), and cerebral infarction without residual deficits; W00.9XXA Unspecified fall due to ice and snow, initial encounter
CPT/HCPCS: 72100; 99283

== ENCOUNTER 2019-12-09 | Emergency (ER) | payer MEDICARE, OTHER | END 2019-12-09 15:49 | disposition home or self-care (01) | CPT/HCPCS: 99283 ==

== ENCOUNTER 2020-01-07 15:20 | Emergency (ER) | payer MEDICARE, OTHER ==
[2020-01-07] MEDS ORDERED: ACET/COD 300 MG/30 MG STARTER PACK 6 TAB BTL PO STA (16:13)
--- NOTE | 2020-01-07 16:34 | XR ---
EXAMINATION TYPE: XR foot complete LT DATE OF EXAM: 01/07/2020 COMPARISON: NONE HISTORY: Pain TECHNIQUE: Three views are submitted. FINDINGS: The osseous structures are intact. There is no acute fracture or dislocation. Joint spaces are p reserved. Large plantar calcaneal spur noted. IMPRESSION: 1. No acute fracture or dislocation. If symptoms persist, follow-up exam in 7 to 10 days could be ob tained.
--- NOTE | 2020-01-07 17:21 | ED ---
Lower Extremity Injury HPI - General Chief Complaint: Extremity Injury, Lower Stated Complaint: lt ankle injury Time Seen by Provider: 01/07/20 15:45 Source: patient Mode of arrival: wheelchair Limitations: no limitations - History of Present Illness Initial Comments: 39-year-old female patient presents to the emergency department today for evaluation of left foot pain. Patient states that a couple of days ago she was coming down the basement steps when one broke and her foot went through. Patient states she's been having pain at the base of the third and fourth digits on the left foot radiating up into the top of her foot. Patient denies any ankle pain or knee pain. She denies falling, hitting her head, or other injuries. She denies any history of injury to this foot. Denies taking anything for pain. Patient denies any headache, neck pain, back pain, chest pain, shortness of breath, dizziness, weakness, abdominal pain, nausea, vomiting , or difficulties with bowel movements or urination. - Related Data Previous Rx's Medication Instructions Recorded Ibuprofen 600 mg PO TID #30 tablet 07/08/19 Nitrofurantoin Monohyd/M-Cryst 100 mg PO Q12HR #14 cap 07/08/19 [Macrobid] Cephalexin [Keflex] 500 mg PO Q8HR #21 cap 12/09/19 Tobramycin 0.3% Ophth Soln [Tobrex 1 drop LEFT EYE Q4H #1 bottle 12/09/19 0.3% Ophth Soln] Ibuprofen [Motrin] 600 mg PO Q8HR PRN #30 tab 01/07/20 Allergies Allergy/AdvReac Type Severity Reaction Status Date / Time Iodinated Contrast Media Allergy Rash/Hives Verified 12/09/19 14:55 [Iodinated Contrast Media - IV Dye] iodine Allergy Rash/Hives Verified 12/09/19 14:55 Iodine and Iodide Containing Allergy Rash/Hives Verified 12/09/19 14:55 Produc bupropion HCl AdvReac Unknown Homicidal Verified 12/09/19 14:55 [From Wellbutrin] Ideation aspirin AdvReac Nausea & Verified 12/09/19 14:55 Vomiting hydromorphone HCl AdvReac Diarrhea Verified 12/09/19 14:55 [From Dilaudid] propoxyphene napsylate AdvReac Nausea & Verified 12/09/19 14:55 [From Darvocet-N] Vomiting steroids Allergy Rash/Hives Uncoded 12/09/19 14:55 Review of Systems ROS Statement: Those systems with pertinent positive or pertinent negative responses have been documented in the HPI. ROS Other: All systems not noted in ROS Statement are negative. Past Medical History Past Medical History: Asthma, CVA/TIA, Hypertension, Seizure Disorder Additional Past Medical History / Comment(s): 11/2017 TIA or CVA (pt unsure) with resolved L sided weakness/aphasia but states still has short term memory loss, last seizure in 2016, frequent kidney infections, kidney stones she passed on her own, chronic cervical and low back pain, past fractured coccyx, gestational diabetes. History of Any Multi-Drug Resistant Organisms: MRSA Date of last positivie culture/infection: 1999,2013, 2016 MDRO Source:: right leg Past Surgical History: Appendectomy, Section, Cholecystectomy, Tonsillectomy, Tubal Ligation Additional Past Surgical History / Comment(s): Multiple ear surgeries (x15 left ear & 13 right ear) ended up with eardrum replacements, x2 Past Anesthesia/Blood Transfusion Reactions: No Reported Reaction Additional Past Anesthesia/Blood Transfusion Reaction / Comment(s): PT STATES DIFFICULTY WAKING UP. PTS FATHER ALSO HAS DIFFICULTY WAKING UP. Past Psychological History: ADD/ADHD, Anxiety Smoking Status: Never smoker Past Alcohol Use History: None Reported Past Drug Use History: None Reported - Past Family History Mother Family Medical History: Cancer Additional Family Medical History / Comment(s): KIDNEY CANCER- in 2012 at the age of 68yrs. Father Family Medical History: CVA/TIA, Myocardial Infarction ([place]) Additional Family Medical History / Comment(s): Father had 8 CVAs and 2 MIs. His first [place] was at age 69yrs and 2nd [place] was at age 71yrs. He has a pacemaker. He is dyslexic. General Exam Limitations: no limitations General appearance: alert, in no apparent distress, other (This is a well- developed, well-nourished adult female patient in no acute distress. Vital signs upon presentation are temperature 98.0F, pulse 82, respirations 18, blood pressure 122/80, Pulse ox 98% on room air. ) Eye exam: Present: normal appearance, PERRL, EOMI. Absent: scleral icterus, conjunctival injection, periorbital swelling ENT exam: Present: normal exam, normal oropharynx, mucous membranes moist Respiratory exam: Present: normal lung sounds bilaterally. Absent: respiratory distress, wheezes, rales, rhonchi, stridor Cardiovascular Exam: Present: regular rate, normal rhythm, normal heart sounds. Absent: systolic murmur, diastolic murmur, rubs, gallop, clicks Extremities exam: Present: full ROM, tenderness (Tenderness over the dorsal aspect of the foot near the base of the second and third digits.), normal capillary refill, other (Mild ecchymosis and swelling noted over the dorsal aspect of the foot near the base of the second and third digit. Skin is otherwise pink, warm, dry. Cap refills less than 3 seconds. Pedal and posttibial pulses are 2+ and equal bilaterally. There is no ankle tenderness nor proximal tib-fib tenderness.). Absent: pedal edema, joint swelling, calf tenderness Neurological exam: Present: alert, oriented X3, CN II-XII intact Psychiatric exam: Present: normal affect, normal mood Skin exam: Present: warm, dry, intact, normal color. Absent: rash Course Vital Signs 01/07/20 01/07/20 15:27 17:32 Temperature 98.0 F 98.2 F Pulse Rate 82 80 Respiratory 18 16 Rate Blood Pressure 122/80 118/18 O2 Sat by Pulse 98 99 Oximetry Medical Decision Making - Medical Decision Making 39-year-old female patient presents to the emergency department today for evaluation of left foot pain and swelling. Physical examination does reveal ecchymosis and soft tissue swelling noted to the dorsal foot at the base of the second and third digits. X-rays were negative for any evidence of fracture. I did discuss probable foot sprain with the patient. She was placed in a Evgeny wrap. She is educated regarding rest, ice, elevation. She is instructed to follow up with her primary care physician for recheck in 1-2 days. She is instructed to obtain repeat x-ray in 7-10 days if her symptoms do not improve. Return parameters were discussed in detail. She verbalizes understanding and agrees with this plan. - Radiology Data Radiology results: report reviewed, image reviewed X-ray of the left foot is obtained. Report is reviewed in its entirety. Impression by Dr. garcia shows no acute fracture dislocation. If symptoms persist up exam in 7-10 days could be obtained. Disposition Clinical Impression: Sprain of left foot Disposition: HOME SELF-CARE Condition: Good Instructions (If sedation given, give patient instructions): Foot Sprain (ED) Additional Instructions: Rest, ice, elevate the left foot. Use evgeny wrap for comfort and support. Take motrin for pain control. Use Tylenol #3 sparingly. Follow up with the primary care physician for recheck in 1-2 days. Have repeat x-ray performed in 7-10 days if pain symptoms persist. Return for any new, worsening, or concerning symptoms. Prescriptions: Ibuprofen [Motrin] 600 mg PO Q8HR PRN #30 tab PRN Reason: Pain Is patient prescribed a controlled substance at d/c from ED?: No [facility]errals: [facility] [NON[facility]] - 1-2 days Time of Disposition: 17:21
[2020-01-07 17:33] VITALS: BP 118/18; PULSE 80; RESP 16; TEMP 98.2
== END 2020-01-07 17:32 | disposition home or self-care (01) ==
LOC: EC 15:20
DX: S93.602A Unspecified sprain of left foot, initial encounter (principal); Z86.73 Personal history of transient ischemic attack (TIA), and cerebral infarction without residual deficits; Z86.14 Personal history of Methicillin resistant Staphylococcus aureus infection; Z91.041 Radiographic dye allergy status; Z88.8 Allergy status to other drugs, medicaments and biological substances; Z88.6 Allergy status to analgesic agent; Z88.5 Allergy status to narcotic agent; W10.9XXA Fall (on) (from) unspecified stairs and steps, initial encounter; Y93.01 Activity, walking, marching and hiking; Y92.009 Unspecified place in unspecified non-institutional (private) residence as the place of occurrence of the external cause
CPT/HCPCS: 99283

== ENCOUNTER 2020-05-28 13:46 | Emergency (ER) | payer MEDICARE, OTHER ==
[2020-05-28 13:51] VITALS: RESP 18; TEMP 97.7
--- NOTE | 2020-05-28 14:20 | ED ---
Back Pain HPI - General Chief Complaint: Back Pain/Injury Stated Complaint: Back/Neck Pain Time Seen by Provider: 05/28/20 14:04 Source: patient Limitations: no limitations - History of Present Illness Initial Comments: 39-year-old female presenting today for multiple complaints. Patient states that she has chronic neck and low back pain she states that this is not new but she had to sit still today for new ocular scan of her thyroid as she is being evaluated for thyroid cancer and states that she has had increased pain since. Patient denies fevers, IVDU, hx of confirmed cancer. Denies vomiting, abdominal pain, chest pain or SOB. Denies UE weakness or sensation deficits. Patient states that she has not had new falls or trauma. Patient also notes she woke up this morning prior to her nuclear scan stating her throat was sore, increasing with swallowing. Patient denies fevers, neck stiffnes, ear pain. Admits to some congestion. patient has no additional complaints - Related Data Previous Rx's Medication Instructions Recorded Ibuprofen 600 mg PO TID #30 tablet 07/08/19 Nitrofurantoin Monohyd/M-Cryst 100 mg PO Q12HR #14 cap 07/08/19 [Macrobid] Cephalexin [Keflex] 500 mg PO Q8HR #21 cap 12/09/19 Tobramycin 0.3% Ophth Soln [Tobrex 1 drop LEFT EYE Q4H #1 bottle 12/09/19 0.3% Ophth Soln] Ibuprofen [Motrin] 600 mg PO Q8HR PRN #30 tab 01/07/20 Allergies Allergy/AdvReac Type Severity Reaction Status Date / Time Iodinated Contrast Media Allergy Rash/Hives Verified 05/28/20 13:51 [Iodinated Contrast Media - IV Dye] iodine Allergy Rash/Hives Verified 05/28/20 13:51 Iodine and Iodide Containing Allergy Rash/Hives Verified 05/28/20 13:51 Produc bupropion HCl AdvReac Unknown Homicidal Verified 05/28/20 13:51 [From Wellbutrin] Ideation aspirin AdvReac Nausea & Verified 05/28/20 13:51 Vomiting hydromorphone HCl AdvReac Diarrhea Verified 05/28/20 13:51 [From Dilaudid] propoxyphene napsylate AdvReac Nausea & Verified 05/28/20 13:51 [From Darvocet-N] Vomiting steroids Allergy Rash/Hives Uncoded 05/28/20 13:51 Review of Systems ROS Statement: Those systems with pertinent positive or pertinent negative responses have been documented in the HPI. ROS Other: All systems not noted in ROS Statement are negative. Past Medical History Past Medical History: Asthma, CVA/TIA, Hypertension, Seizure Disorder Additional Past Medical History / Comment(s): 11/2017 TIA or CVA (pt unsure) with resolved L sided weakness/aphasia but states still has short term memory loss, last seizure in 2016, frequent kidney infections, kidney stones she passed on her own, chronic cervical and low back pain, past fractured coccyx, gestational diabetes. History of Any Multi-Drug Resistant Organisms: MRSA Date of last positivie culture/infection: 1999,2013, 2016 MDRO Source:: right leg Past Surgical History: Appendectomy, Section, Cholecystectomy, Tonsillectomy, Tubal Ligation Additional Past Surgical History / Comment(s): Multiple ear surgeries (x15 left ear & 13 right ear) ended up with eardrum replacements, x2 Past Anesthesia/Blood Transfusion Reactions: No Reported Reaction Additional Past Anesthesia/Blood Transfusion Reaction / Comment(s): PT STATES DIFFICULTY WAKING UP. PTS FATHER ALSO HAS DIFFICULTY WAKING UP. Past Psychological History: ADD/ADHD, Anxiety Past Alcohol Use History: None Reported Past Drug Use History: None Reported - Past Family History Mother Family Medical History: Cancer Additional Family Medical History / Comment(s): KIDNEY CANCER- in 2012 at the age of 68yrs. Father Family Medical History: CVA/TIA, Myocardial Infarction ([place]) Additional Family Medical History / Comment(s): Father had 8 CVAs and 2 MIs. His first [place] was at age 69yrs and 2nd [place] was at age 71yrs. He has a pacemaker. He is dyslexic. General Exam - General Exam Comments Initial Comments: General: The patient is awake and alert, in no distress, and does not appear acutely ill. Eye: +3 mm pupils are equal, round and reactive to light, extra-ocular movements are intact. No nystagmus. There is normal conjunctiva bilaterally. No signs of icterus. Ears, nose, mouth and throat: There are moist mucous membranes and no oral lesions. Mildly erythematous oropharynx, uvula midline, tolerating oral secretions, no stridor or tripoding, no tonsillar fullness or enlargement or exudates noted. Neck: The neck is supple, there is no tenderness or JVD. Cardiovascular: There is a regular rate and rhythm. No murmur, rub or gallop is appreciated. Respiratory: Lungs are clear to auscultation, respirations are non-labored, breath sounds are equal. No wheezes, stridor, rales, or rhonchi. Musculoskeletal: No midline tenderness to palpation of the thoracic spine. There is mild midline and paraspinal tenderness of the cervical and lumbar areas of spine. Normal ROM, no tenderness. Strength 5/5 of the UE and LE b/l. Sensation intact of the UE and LE b/l . Radial and DP pulses equal bilaterally 2+. Neurological: A&O x 3. CN II-XII intact rgossly, There are no obvious motor or sensory deficits. Coordination appears grossly intact. Speech is normal. Skin: Skin is warm and dry and no rashes or lesions are noted. Psychiatric: Cooperative, appropriate mood & affect, normal judgment. Limitations: no limitations Course Vital Signs 05/28/20 05/28/20 13:47 15:34 Temperature 97.7 F Pulse Rate 72 77 Respiratory 18 18 Rate Blood Pressure 177/78 128/72 O2 Sat by Pulse 98 97 Oximetry Medical Decision Making - Medical Decision Making Pt with chronic neck low back pain, increased since sitting with neck extended on flat surface for NM scan earlier today. Patient has had sore throat that acute. Mild erythema appears viral. No exudates, uvula midline Strep (-) WIll treat symptomatically recommend pcp f/u. throat culture pending. Patient discharged appearing well. Discussed case with Dr. Gustafson - Lab Data Lab Results 05/28/20 Range/Units 14:37 Group A Strep Rapid Negative (Negative) Disposition Clinical Impression: Chronic back pain, Pharyngitis Disposition: HOME SELF-CARE Condition: Good Instructions (If sedation given, give patient instructions): Pharyngitis (ED), Back Pain (ED), Lower Back Exercises (ED) Additional Instructions: Please use medication as discussed. Please follow-up with family doctor in the next 2 days. Please return to emergency room if the symptoms increase or worsen or for any other concerns. Is patient prescribed a controlled substance at d/c from ED?: No Referrals: Lola Gaines MD [Primary Care Provider] - 1-2 days Time of Disposition: 15:23
[2020-05-28] MEDS ORDERED: ACET/COD 300 MG/30 MG STARTER PACK 6 TAB BTL PO STA (14:27)
--- NOTE | 2020-05-28 15:21 | XR ---
EXAMINATION TYPE: XR lumbar spine 2 or 3V DATE OF EXAM: 05/28/2020 CLINICAL HISTORY: Lower back pain TECHNIQUE: Frontal and lateral images of the lumbar spine obtained COMPARISON: Lumbar spine radiograph 11/21/2019 FINDINGS: There are 5 lumbar type vertebral bodies identified. The lumbar spine shows satisfactory alignment without evidence of acute fracture or dislocation. Vertebral body heights and disk space he ights are within normal limits. There is mild degenerative endplate spurring. Facet arthropathy infer iorly. The overlying soft tissue appears unremarkable. IMPRESSION: 1. No acute fracture or dislocation is seen in the lumbar spine. 2. Mild degenerative endplate spurring and facet arthropathy.
[2020-05-28 15:35] VITALS: BP 128/72; PULSE 77
== END 2020-05-28 15:36 | disposition home or self-care (01) ==
LOC: EC 13:46
DX: G89.29 Other chronic pain (principal); M54.9 Dorsalgia, unspecified; J02.9 Acute pharyngitis, unspecified; Z91.041 Radiographic dye allergy status; Z91.048 Other nonmedicinal substance allergy status; Z88.5 Allergy status to narcotic agent; Z88.6 Allergy status to analgesic agent; Z88.8 Allergy status to other drugs, medicaments and biological substances; Z86.73 Personal history of transient ischemic attack (TIA), and cerebral infarction without residual deficits
CPT/HCPCS: 99283 ×2; 87081; 87430; 72100; 78014; A9516

== ENCOUNTER → 2020-05-28 | Outpatient (CLI) | payer MEDICARE, OTHER ==
--- NOTE | 2020-05-29 13:29 | NM ---
EXAMINATION TYPE: NM thyroid image w uptake DATE OF EXAM: 05/29/2020 COMPARISON: CT 05/11/2018 HISTORY: Thyroid nodule TECHNIQUE: Thyroid iodine uptake is calculated and images performed after the oral administration of 308 uCi 1-123 Capsule. FINDINGS: There is decreased uptake seen at the lower pole the right lobe of the gland. The 4 hour iodine uptake is calculated at 14.6% (normal range 8-14%). The 24-hour iodine uptake is calculated at 34.8% (normal range 15-35%). IMPRESSION: Cold nodule lower pole right lobe of the thyroid.
== END | disposition home or self-care (01) ==
LOC: RADNMMAIN 08:31
PROVIDERS: ATTEND Family Medicine
DX: E04.1 Nontoxic single thyroid nodule (principal); Z91.048 Other nonmedicinal substance allergy status
CPT/HCPCS: 78014; A9516

== ENCOUNTER 2021-02-28 13:27 | Emergency (ER) | payer MEDICARE, OTHER ==
[2021-02-28 13:39] VITALS: BP 144/74; PULSE 73; RESP 20; TEMP 98.2
--- NOTE | 2021-02-28 14:17 | XR ---
EXAMINATION TYPE: XR knee complete LT DATE OF EXAM: 02/28/2021 COMPARISON: 03/21/2016 HISTORY: Pain TECHNIQUE: 3 views FINDINGS: There is minor spurring of the femoral and tibial condyles. There is mild spurring on the p atella. I see no fracture nor dislocation. IMPRESSION: Minimal osteoarthritic changes which have progressed compared to old exam.
--- NOTE | 2021-02-28 14:20 | XR ---
EXAMINATION TYPE: XR ankle complete LT DATE OF EXAM: 02/28/2021 COMPARISON: NONE HISTORY: Pain TECHNIQUE: 3 views FINDINGS: There is plantar calcaneal spurring. I see no fracture nor dislocation. Joint spaces are fa irly normal. Subtalar joint appears normal. IMPRESSION: Calcaneal spurring. No fracture.
--- NOTE | 2021-02-28 14:39 | ED ---
Lower Extremity Injury HPI - General Chief Complaint: Extremity Injury, Lower Stated Complaint: knee/ankle pain Time Seen by Provider: 02/28/21 14:24 Source: patient Mode of arrival: wheelchair Limitations: no limitations - History of Present Illness Initial Comments: 40-year-old female presents to emergency department with a chief complaint of left knee pain for 1 day. States the pain is exacerbated with ambulation and weightbearing. She reports full range of motion states most the pain is located in the left knee denies any radiation of the pain. Denies any calf pain states she does have occasional pain in her left ankle. Denies any erythema, swelling or injuries to the left knee. Denies any paresthesias. Denies chest pain shortness of breath. - Related Data Previous Rx's Medication Instructions Recorded Nitrofurantoin Monohyd/M-Cryst 100 mg PO Q12HR #14 cap 07/08/19 [Macrobid] Ibuprofen [Motrin] 600 mg PO Q8HR PRN #30 tab 01/07/20 Allergies Allergy/AdvReac Type Severity Reaction Status Date / Time Iodinated Contrast Media Allergy Rash/Hives Verified 02/28/21 13:39 [Iodinated Contrast Media - IV Dye] iodine Allergy Rash/Hives Verified 02/28/21 13:39 Iodine and Iodide Containing Allergy Rash/Hives Verified 02/28/21 13:39 Produc bupropion HCl AdvReac Unknown Homicidal Verified 02/28/21 13:39 [From Wellbutrin] Ideation aspirin AdvReac Nausea & Verified 02/28/21 13:39 Vomiting hydromorphone HCl AdvReac Diarrhea Verified 02/28/21 13:39 [From Dilaudid] propoxyphene napsylate AdvReac Nausea & Verified 02/28/21 13:39 [From Darvocet-N] Vomiting steroids Allergy Rash/Hives Uncoded 02/28/21 13:39 Review of Systems ROS Statement: Those systems with pertinent positive or pertinent negative responses have been documented in the HPI. ROS Other: All systems not noted in ROS Statement are negative. Past Medical History Past Medical History: Asthma, CVA/TIA, Hypertension, Seizure Disorder, Thyroid Disorder Additional Past Medical History / Comment(s): 11/2017 TIA or CVA (pt unsure) with resolved L sided weakness/aphasia but states still has short term memory loss, last seizure in 2017, frequent kidney infections, kidney stones she passed on her own, chronic cervical and low back pain, past fractured coccyx, gestational diabetes. History of Any Multi-Drug Resistant Organisms: MRSA Date of last positivie culture/infection: 1999,2013, 2016 MDRO Source:: right leg Past Surgical History: Appendectomy, Section, Cholecystectomy, Tonsillectomy, Tubal Ligation Additional Past Surgical History / Comment(s): Multiple ear surgeries (x15 left ear & 13 right ear) ended up with eardrum replacements, x2 Past Anesthesia/Blood Transfusion Reactions: No Reported Reaction Additional Past Anesthesia/Blood Transfusion Reaction / Comment(s): PT STATES DIFFICULTY WAKING UP. PTS FATHER ALSO HAS DIFFICULTY WAKING UP. Past Psychological History: ADD/ADHD, Anxiety Smoking Status: Never smoker Past Alcohol Use History: None Reported Past Drug Use History: None Reported - Past Family History Mother Family Medical History: Cancer Additional Family Medical History / Comment(s): KIDNEY CANCER- in 2012 at the age of 68yrs. Father Family Medical History: CVA/TIA, Myocardial Infarction ([place]) Additional Family Medical History / Comment(s): Father had 8 CVAs and 2 MIs. His first [place] was at age 69yrs and 2nd [place] was at age 71yrs. He has a pacemaker. He is dyslexic. General Exam Limitations: no limitations General appearance: alert, in no apparent distress, obese Head exam: Present: atraumatic, normocephalic, normal inspection Eye exam: Present: normal appearance, PERRL, EOMI Pupils: Present: normal accommodation ENT exam: Present: normal exam, normal oropharynx, mucous membranes moist Neck exam: Present: normal inspection, full ROM. Absent: tenderness Respiratory exam: Present: normal lung sounds bilaterally. Absent: respiratory distress, wheezes, rales, rhonchi, stridor Cardiovascular Exam: Present: regular rate, normal rhythm, normal heart sounds. Absent: systolic murmur Extremities exam: Present: normal inspection, full ROM, tenderness (Anterolateral tenderness of the left knee), normal capillary refill, other (Palpable DP and PT bilaterally. Sensation intact in the left lower extremity). Absent: pedal edema, joint swelling, calf tenderness Back exam: Present: normal inspection, full ROM. Absent: tenderness, CVA tenderness (R), CVA tenderness (L) Neurological exam: Present: alert, oriented X3 Psychiatric exam: Present: normal affect, normal mood Skin exam: Present: warm, dry, intact, normal color Course Vital Signs 02/28/21 13:37 Temperature 98.2 F Pulse Rate 73 Respiratory 20 Rate Blood Pressure 144/74 O2 Sat by Pulse 99 Oximetry Medical Decision Making - Medical Decision Making 40-year-old female presents to the emergency department with a chief complaint of ankle and knee pain. On physical examination, no signs of infection. Full range of motion. No calf tenderness or unilateral leg swelling. X-rays of the ankle show some calcaneal spurring. X-rays of the knee reveal mild progression of the osteoarthritic changes. Patient advised to follow with orthopedics. Return parameters were thoroughly discussed the patient was sitting agreeable. Case discussed with physician Disposition Clinical Impression: Left knee pain, Left ankle pain Disposition: HOME SELF-CARE Condition: Stable Instructions (If sedation given, give patient instructions): Knee Pain (ED) Additional Instructions: Please return to the Emergency Department if symptoms worsen or any other concerns. Is patient prescribed a controlled substance at d/c from ED?: No Referrals: Azul Lorenz DO [Primary Care Provider] - 1-2 days Garth Mariscal DO [Doctor of Osteopathic Medicine] - 1-2 days Time of Disposition: 14:39
== END 2021-02-28 15:00 | disposition home or self-care (01) ==
LOC: EC 13:27
DX: M17.12 Unilateral primary osteoarthritis, left knee (principal); M77.32 Calcaneal spur, left foot; J45.909 Unspecified asthma, uncomplicated; I10 Essential (primary) hypertension; Z91.041 Radiographic dye allergy status; Z86.73 Personal history of transient ischemic attack (TIA), and cerebral infarction without residual deficits; Z88.8 Allergy status to other drugs, medicaments and biological substances; Z88.5 Allergy status to narcotic agent; Z88.6 Allergy status to analgesic agent
CPT/HCPCS: 99283

== ENCOUNTER 2021-02-28 22:59 | Emergency (ER) | payer MEDICARE, OTHER ==
[2021-02-28 23:29] VITALS: RESP 20; TEMP 98.1
[2021-03-01] MEDS ORDERED: KETOROLAC 15 MG/ML 1 ML VIAL IM STA (00:24)
[2021-03-01] MEDS ORDERED: ACET/COD 300 MG/30 MG STARTER PACK 6 TAB BTL PO STA (00:24)
--- NOTE | 2021-03-01 00:26 | ED ---
General Adult HPI - General Chief complaint: Recheck/Abnormal Lab/Rx Stated complaint: knee & ankle pain-revisit Time Seen by Provider: 02/28/21 23:53 Source: patient, family Mode of arrival: ambulatory Limitations: no limitations - History of Present Illness Initial comments: 40-year-old female patient presents to the emergency department today for eval uation of left knee and ankle pain. Patient states that she's been having pain for the last few days. She was seen and evaluated for the pain earlier today had negative x-rays. States she was instructed follow up with orthopedics. States the pain persisted tonight so she came back in for further evaluation. States she also needs a work note for tomorrow. Denies any new injury. Denies swelling to the leg. Denies any calf tenderness or redness. Denies history of DVT. - Related Data Previous Rx's Medication Instructions Recorded Nitrofurantoin Monohyd/M-Cryst 100 mg PO Q12HR #14 cap 07/08/19 [Macrobid] Ibuprofen [Motrin] 600 mg PO Q8HR PRN #30 tab 01/07/20 Allergies Allergy/AdvReac Type Severity Reaction Status Date / Time Iodinated Contrast Media Allergy Rash/Hives Verified 02/28/21 23:29 [Iodinated Contrast Media - IV Dye] iodine Allergy Rash/Hives Verified 02/28/21 23:29 Iodine and Iodide Containing Allergy Rash/Hives Verified 02/28/21 23:29 Produc bupropion HCl AdvReac Unknown Homicidal Verified 02/28/21 23:29 [From Wellbutrin] Ideation aspirin AdvReac Nausea & Verified 02/28/21 23:29 Vomiting hydromorphone HCl AdvReac Diarrhea Verified 02/28/21 23:29 [From Dilaudid] propoxyphene napsylate AdvReac Nausea & Verified 02/28/21 23:29 [From Darvocet-N] Vomiting steroids Allergy Rash/Hives Uncoded 02/28/21 23:29 Review of Systems ROS Statement: Those systems with pertinent positive or pertinent negative responses have been documented in the HPI. ROS Other: All systems not noted in ROS Statement are negative. Past Medical History Past Medical History: Asthma, CVA/TIA, Hypertension, Seizure Disorder, Thyroid Disorder Additional Past Medical History / Comment(s): 11/2017 TIA or CVA (pt unsure) with resolved L sided weakness/aphasia but states still has short term memory loss, last seizure in 2017, frequent kidney infections, kidney stones she passed on her own, chronic cervical and low back pain, past fractured coccyx, gestational diabetes. History of Any Multi-Drug Resistant Organisms: MRSA Date of last positivie culture/infection: 1999,2013, 2016 MDRO Source:: right leg Past Surgical History: Appendectomy, Section, Cholecystectomy, Tonsillectomy, Tubal Ligation Additional Past Surgical History / Comment(s): Multiple ear surgeries (x15 left ear & 13 right ear) ended up with eardrum replacements, x2 Past Anesthesia/Blood Transfusion Reactions: No Reported Reaction Additional Past Anesthesia/Blood Transfusion Reaction / Comment(s): PT STATES DIFFICULTY WAKING UP. PTS FATHER ALSO HAS DIFFICULTY WAKING UP. Past Psychological History: ADD/ADHD, Anxiety Smoking Status: Never smoker Past Alcohol Use History: None Reported Past Drug Use History: None Reported - Past Family History Mother Family Medical History: Cancer Additional Family Medical History / Comment(s): KIDNEY CANCER- in 2012 at the age of 68yrs. Father Family Medical History: CVA/TIA, Myocardial Infarction ([place]) Additional Family Medical History / Comment(s): Father had 8 CVAs and 2 MIs. His first [place] was at age 69yrs and 2nd [place] was at age 71yrs. He has a pacemaker. He is dyslexic. General Exam Limitations: no limitations General appearance: alert, in no apparent distress Respiratory exam: Present: normal lung sounds bilaterally. Absent: respiratory distress, wheezes, rales, rhonchi, stridor Cardiovascular Exam: Present: regular rate, normal rhythm, normal heart sounds. Absent: systolic murmur, diastolic murmur, rubs, gallop, clicks Extremities exam: Present: normal inspection, full ROM, tenderness (Left anterio r posterior knee, bilateral malleolus of the left ankle.), normal capillary refill, other (Consultants otherwise pink, warm, dry. Cap refill less than 3 seconds. Pedal and posttibial pulses 2+. Patient has full flexion and extension of the knee present.). Absent: pedal edema, joint swelling, calf tenderness Neurological exam: Present: alert, oriented X3, CN II-XII intact Psychiatric exam: Present: normal affect, normal mood Skin exam: Present: warm, dry, intact, normal color. Absent: rash Course Vital Signs 02/28/21 03/01/21 23:24 00:38 Temperature 98.1 F Pulse Rate 77 81 Respiratory 20 20 Rate Blood Pressure 124/62 119/70 O2 Sat by Pulse 97 97 Oximetry Medical Decision Making - Medical Decision Making 40 year old female patient presents for evaluation of left knee pain and ankle pain. Physical examination is unremarkable. Neurovascular status is intact. She is able to ambulate. X-rays reviewed from earlier today were negative. She is given Toradol injection and Tylenol codeine starter pack. Given work note. She'll be discharged to follow up with orthopedics that she has planned. Return parameters were discussed in detail. She verbalizes understanding and agrees with this plan. My attending is Dr. Long. Disposition Clinical Impression: Left knee pain, Left ankle pain Disposition: HOME SELF-CARE Condition: Good Instructions (If sedation given, give patient instructions): Knee Pain (ED), Arthralgia (ED) Additional Instructions: Rest, ice, elevate the left leg. Take pain medication sparingly as needed for severe pain. Follow-up with orthopedics as you have planned. Return for any new, worsening, or concerning symptoms. Is patient prescribed a controlled substance at d/c from ED?: No Referrals: Azul Lorenz DO [Primary Care Provider] - 1-2 days Sathya Phelps MD [STAFF PHYSICIAN] - 1-2 days Forms: Work/School Release Time of Disposition: 00:25
[2021-03-01 00:39] VITALS: BP 119/70; PULSE 81
== END 2021-03-01 00:43 | disposition home or self-care (01) ==
LOC: EC 22:59
DX: M25.562 Pain in left knee (principal); M25.572 Pain in left ankle and joints of left foot; I10 Essential (primary) hypertension; J45.909 Unspecified asthma, uncomplicated; G40.909 Epilepsy, unspecified, not intractable, without status epilepticus; F41.9 Anxiety disorder, unspecified; F90.9 Attention-deficit hyperactivity disorder, unspecified type; Z86.73 Personal history of transient ischemic attack (TIA), and cerebral infarction without residual deficits; Z87.442 Personal history of urinary calculi
CPT/HCPCS: 99283; 96372; J1885

== ENCOUNTER 2021-04-22 22:26 | Emergency (ER) | payer MEDICARE, OTHER ==
[2021-04-22 22:31] VITALS: TEMP 98.1
[2021-04-22] MEDS ORDERED: KETOROLAC 15 MG/ML 1 ML VIAL IM STA (22:44)
[2021-04-22] MEDS ORDERED: MORPHINE SULFATE 4 MG/ML SYRINGE IM STA (22:44)
[2021-04-22] MEDS ORDERED: LIDOCAINE 5% PATCH TOPICAL STA (22:44)
[2021-04-22] MEDS ORDERED: ORPHENADRINE 30 MG/ML 2 ML VIAL IM STA (22:44)
--- NOTE | 2021-04-22 22:48 | ED ---
Back Pain HPI - General Chief Complaint: Back Pain/Injury Stated Complaint: back pain Time Seen by Provider: 04/22/21 22:37 Source: patient Limitations: no limitations - History of Present Illness Initial Comments: 40 year-old female patient with past history of back pain presents to the emergency department for evaluation of low back pain that started about 5 days ago. States that she woke up with the pain. States it worsens significant with any movement, position change, or bending. States that she has tried tylenol, motrin, ice, and heat at home without relief. States her doctor believes she has a "slipped disc". Does report some radiating pain down the right leg. Denies any loss of bowel or bladder control. Denies saddle anesthesia or numbness or tingling to the lower extremities. Denies fever or chills. Denies any hematuria, dysuria, urinary frequency, urinary urgency. Denies any abdominal pain. Denies any known injury to the back. - Related Data Previous Rx's Medication Instructions Recorded Lidocaine 5% Patch [Lidoderm] 1 patch TOPICAL DAILY #30 patch 04/23/21 Nitrofurantoin Monohyd/M-Cryst 100 mg PO Q12HR #14 cap 04/23/21 [Macrobid] Orphenadrine [Norflex] 100 mg PO Q12H #10 tablet.er 04/23/21 Allergies Allergy/AdvReac Type Severity Reaction Status Date / Time Iodinated Contrast Media Allergy Rash/Hives Verified 04/22/21 22:32 [Iodinated Contrast Media - IV Dye] iodine Allergy Rash/Hives Verified 04/22/21 22:32 Iodine and Iodide Containing Allergy Rash/Hives Verified 04/22/21 22:32 Produc bupropion HCl AdvReac Unknown Homicidal Verified 04/22/21 22:32 [From Wellbutrin] Ideation aspirin AdvReac Nausea & Verified 04/22/21 22:32 Vomiting hydromorphone HCl AdvReac Diarrhea Verified 04/22/21 22:32 [From Dilaudid] propoxyphene napsylate AdvReac Nausea & Verified 04/22/21 22:32 [From Darvocet-N] Vomiting steroids Allergy Rash/Hives Uncoded 02/28/21 23:29 Review of Systems ROS Statement: Those systems with pertinent positive or pertinent negative responses have been documented in the HPI. ROS Other: All systems not noted in ROS Statement are negative. Past Medical History Past Medical History: Asthma, CVA/TIA, Hypertension, Seizure Disorder, Thyroid Disorder Additional Past Medical History / Comment(s): 11/2017 TIA or CVA (pt unsure) with resolved L sided weakness/aphasia but states still has short term memory loss, last seizure in 2016, frequent kidney infections, kidney stones she passed on her own, chronic cervical and low back pain, past fractured coccyx, gestational diabetes. History of Any Multi-Drug Resistant Organisms: MRSA Date of last positivie culture/infection: 1999,2013, 2016 MDRO Source:: right leg Past Surgical History: Appendectomy, Section, Cholecystectomy, Tonsillectomy, Tubal Ligation Additional Past Surgical History / Comment(s): Multiple ear surgeries (x15 left ear & 13 right ear) ended up with eardrum replacements, x2 Past Anesthesia/Blood Transfusion Reactions: No Reported Reaction Additional Past Anesthesia/Blood Transfusion Reaction / Comment(s): PT STATES DIFFICULTY WAKING UP. PTS FATHER ALSO HAS DIFFICULTY WAKING UP. Past Psychological History: ADD/ADHD, Anxiety Smoking Status: Never smoker Past Alcohol Use History: None Reported Past Drug Use History: None Reported - Past Family History Mother Family Medical History: Cancer Additional Family Medical History / Comment(s): KIDNEY CANCER- in 2012 at the age of 68yrs. Father Family Medical History: CVA/TIA, Myocardial Infarction ([place]) Additional Family Medical History / Comment(s): Father had 8 CVAs and 2 MIs. His first [place] was at age 69yrs and 2nd [place] was at age 71yrs. He has a pacemaker. He is dyslexic. General Exam Limitations: no limitations General appearance: alert, in no apparent distress, other (Physical well- developed, well-nourished adult female patient in no acute distress. Vital signs upon presentation are temperature 98.1F, pulse 66, respirations 18, blood pressure 145/78, pulse ox 96% on room air.) Eye exam: Present: normal appearance, PERRL, EOMI. Absent: scleral icterus, conjunctival injection, periorbital swelling ENT exam: Present: normal exam, normal oropharynx, mucous membranes moist Respiratory exam: Present: normal lung sounds bilaterally. Absent: respiratory distress, wheezes, rales, rhonchi, stridor Cardiovascular Exam: Present: regular rate, normal rhythm, normal heart sounds. Absent: systolic murmur, diastolic murmur, rubs, gallop, clicks GI/Abdominal exam: Present: soft, normal bowel sounds. Absent: distended, tenderness, guarding, rebound, rigid Extremities exam: Present: normal inspection, full ROM, normal capillary refill, other (Skin to the lower extremities is pink, warm, dry. Cap refill less than 3 seconds. Pedal and posttibial pulses 2+ and equal bilaterally.). Absent: tenderness, pedal edema, joint swelling, calf tenderness Back exam: Present: normal inspection, vertebral tenderness (L1-L2) Neurological exam: Present: alert, oriented X3, CN II-XII intact Psychiatric exam: Present: normal affect, normal mood Skin exam: Present: warm, dry, intact, normal color. Absent: rash Course Vital Signs 04/22/21 04/22/21 22:28 23:31 Temperature 98.1 F Pulse Rate 66 71 Respiratory 18 20 Rate Blood Pressure 145/78 135/76 O2 Sat by Pulse 96 99 Oximetry Medical Decision Making - Medical Decision Making 40-year-old female patient presents to the emergency department today for evaluation of low back pain. Physical examination did reveal mild CVA tenderness bilaterally. She is afebrile, vital signs. She had no injury. She is given IM injections of morphine, Norflex, Toradol, and a Lidoderm patch. Urinalysis was obtained and showed evidence for mild UTI she'll be treated with Macrobid. She is given Tylenol with Codeine starter pack and prescription for Norflex. She is instructed to follow-up with her primary care physician for recheck in 1-2 days. Return parameters were discussed in detail. She verbalizes understanding and agrees with this plan. My attending is Dr. Long. - Lab Data Lab Results 04/22/21 Range/Units 23:02 Urine Color Yellow Urine Appearance Cloudy H (Clear) Urine pH 5.5 (5.0-8.0) Ur Specific [place] 1.024 (1.001-1.035) Urine Protein Negative (Negative) Urine Glucose (UA) Negative (Negative) Urine Ketones Negative (Negative) Urine Blood Negative (Negative) Urine Nitrite Negative (Negative) Urine Bilirubin Negative (Negative) Urine Urobilinogen <2.0 (<2.0) mg/dL Ur Leukocyte Esterase Moderate H (Negative) Urine RBC 1 (0-5) /hpf Urine WBC 33 H (0-5) /hpf Ur Squamous Epith Cells 4 (0-4) /hpf Amorphous Sediment Rare H (None) /hpf Hyaline Casts 7 H (0-2) /lpf Urine Mucus Many H (None) /hpf Disposition Clinical Impression: Back pain, UTI (urinary tract infection) Disposition: HOME SELF-CARE Condition: Good Instructions (If sedation given, give patient instructions): Urinary Tract Infection in Women (ED), Acute Low Back Pain (ED) Additional Instructions: Take medications as directed. Follow-up the primary care physician for recheck in 1-2 days. Return for any new, worsening, or concerning symptoms. Prescriptions: Lidocaine 5% Patch [Lidoderm] 1 patch TOPICAL DAILY #30 patch Nitrofurantoin Monohyd/M-Cryst [Macrobid] 100 mg PO Q12HR #14 cap Orphenadrine [Norflex] 100 mg PO Q12H #10 tablet.er Is patient prescribed a controlled substance at d/c from ED?: No Referrals: Azul Lorenz DO [Primary Care Provider] - 1-2 days Time of Disposition: 00:07
[2021-04-22 23:43] VITALS: BP 135/76; PULSE 71; RESP 20
[2021-04-22 23:58] LABS: Amorphous Sediment,Urine Rare /hpf; Appearance,Urine Cloudy (Clear); Bilirubin,Urine Negative (Negative); Blood,Urine Negative (Negative); Color,Urine Yellow; Glucose,Urine (UA) Negative (Negative); Hyaline Casts,Urine 7 /lpf (0-2); Ketones,Urine Negative (Negative); Leukocyte Esterase,Urine Moderate (Negative); Mucus,Urine Many /hpf; Nitrite,Urine Negative (Negative); PH, Urine 5.5 (5.0-8.0); Protein,Urine Negative (Negative); RBC,Urine 1 /hpf (0-5); Specific Gravity,Urine 1.024 (1.001-1.035); Squamous Epithelial Cell,Urine 4 /hpf (0-4); Urobilinogen,Urine <2.0 mg/dL (<2.0); WBC,Urine 33 /hpf (0-5)
[2021-04-23] MEDS ORDERED: NITROFURANTOIN MONOHYD/M-CRYST 100 MG CAP PO STA (00:05)
[2021-04-23] MEDS ORDERED: ACET/COD 300 MG/30 MG STARTER PACK 6 TAB BTL PO STA (00:07)
== END 2021-04-23 00:23 | disposition home or self-care (01) ==
LOC: EC 22:26
DX: N39.0 Urinary tract infection, site not specified (principal); I10 Essential (primary) hypertension; J45.909 Unspecified asthma, uncomplicated; G40.909 Epilepsy, unspecified, not intractable, without status epilepticus; F41.9 Anxiety disorder, unspecified; F90.9 Attention-deficit hyperactivity disorder, unspecified type; Z86.73 Personal history of transient ischemic attack (TIA), and cerebral infarction without residual deficits; Z87.442 Personal history of urinary calculi; Z88.5 Allergy status to narcotic agent; Z88.6 Allergy status to analgesic agent; Z88.8 Allergy status to other drugs, medicaments and biological substances; Z90.49 Acquired absence of other specified parts of digestive tract
CPT/HCPCS: 81001; 87086; 99283; 96372 ×3; J2270; J2360; J1885

== ENCOUNTER 2021-04-23 21:12 | Emergency (ER) | payer MEDICARE, OTHER ==
[2021-04-23 21:55] VITALS: BP 122/81; PULSE 53; RESP 17; TEMP 98.2
[2021-04-23] MEDS ORDERED: traMADol 50 MG STARTER PACK 3 TAB BTL PO STA (22:45)
--- NOTE | 2021-04-23 22:46 | ED ---
Back Pain HPI - General Chief Complaint: Back Pain/Injury Stated Complaint: Back pain Time Seen by Provider: 04/23/21 22:12 Source: patient Limitations: no limitations - History of Present Illness Initial Comments: 40 year-old female patient presents for low back pain. Patient was seen yesterday by myself for same complaints. She comes in today because the pain is still present. States she used the prescriptions given yesterday and they have not helped. She states the pain has not changed since yesterday. Reports radiation down the right leg. Denies numbness or tingling. Denies saddle anesthesia or loss of bowel or bladder control. Denies any fever or chills. Denies known injury. States that her doctor is scheduling her for an MRI. Patient denies any recent rash, cough, shortness of breath, chest pain, abdominal pain, nausea, vomiting, diarrhea, constipation, dizziness, weakness, hematuria, dysuria, urinary urgency, urinary frequency, headache, visual changes, or any other complaints. - Related Data Previous Rx's Medication Instructions Recorded Nitrofurantoin Monohyd/M-Cryst 100 mg PO Q12HR #14 cap 04/23/21 [Macrobid] Allergies Allergy/AdvReac Type Severity Reaction Status Date / Time Iodinated Contrast Media Allergy Rash/Hives Verified 04/23/21 22:44 [Iodinated Contrast Media - IV Dye] iodine Allergy Rash/Hives Verified 04/23/21 22:44 Iodine and Iodide Containing Allergy Rash/Hives Verified 04/23/21 22:44 Produc bupropion HCl AdvReac Unknown Homicidal Verified 04/23/21 22:44 [From Wellbutrin] Ideation aspirin AdvReac Nausea & Verified 04/23/21 22:44 Vomiting hydromorphone HCl AdvReac Diarrhea Verified 04/23/21 22:44 [From Dilaudid] propoxyphene napsylate AdvReac Nausea & Verified 04/23/21 22:44 [From Darvocet-N] Vomiting steroids Allergy Rash/Hives Uncoded 04/23/21 22:44 Review of Systems ROS Statement: Those systems with pertinent positive or pertinent negative responses have been documented in the HPI. ROS Other: All systems not noted in ROS Statement are negative. Past Medical History Past Medical History: Asthma, CVA/TIA, Hypertension, Seizure Disorder, Thyroid Disorder Additional Past Medical History / Comment(s): 11/2017 TIA or CVA (pt unsure) with resolved L sided weakness/aphasia but states still has short term memory loss, last seizure in 2017, frequent kidney infections, kidney stones she passed on her own, chronic cervical and low back pain, past fractured coccyx, gestational diabetes. History of Any Multi-Drug Resistant Organisms: MRSA Date of last positivie culture/infection: 1999,2013, 2016 MDRO Source:: right leg Past Surgical History: Appendectomy, Section, Cholecystectomy, Tonsillectomy, Tubal Ligation Additional Past Surgical History / Comment(s): Multiple ear surgeries (x15 left ear & 13 right ear) ended up with eardrum replacements, x2 Past Anesthesia/Blood Transfusion Reactions: No Reported Reaction Additional Past Anesthesia/Blood Transfusion Reaction / Comment(s): PT STATES DIFFICULTY WAKING UP. PTS FATHER ALSO HAS DIFFICULTY WAKING UP. Past Psychological History: ADD/ADHD, Anxiety Smoking Status: Never smoker Past Alcohol Use History: None Reported Past Drug Use History: None Reported - Past Family History Mother Family Medical History: Cancer Additional Family Medical History / Comment(s): KIDNEY CANCER- in 2012 at the age of 68yrs. Father Family Medical History: CVA/TIA, Myocardial Infarction ([place]) Additional Family Medical History / Comment(s): Father had 8 CVAs and 2 MIs. His first NV was at age 69yrs and 2nd NV was at age 71yrs. He has a pacemaker. He is dyslexic. General Exam Limitations: no limitations General appearance: alert, in no apparent distress, other (This is a well- developed, well-nourished adult female patient in no acute distress. Vital signs upon presentation are temperature 98.2F, pulse 53, respirations 17, blood pressure 122/81, pulse ox 96% on room air.) ENT exam: Present: normal exam, normal oropharynx, mucous membranes moist Respiratory exam: Present: normal lung sounds bilaterally. Absent: respiratory distress, wheezes, rales, rhonchi, stridor Cardiovascular Exam: Present: regular rate, normal rhythm, normal heart sounds. Absent: systolic murmur, diastolic murmur, rubs, gallop, clicks GI/Abdominal exam: Present: soft, normal bowel sounds. Absent: distended, tenderness, guarding, rebound, rigid Extremities exam: Present: normal inspection, full ROM, normal capillary refill, other (Skin to the lower extremities is pink, warm, dry. Cap refill less than 3 seconds. Pedal and posttibial pulses are 2+ and equal bilaterally.). Absent: tenderness, pedal edema, joint swelling, calf tenderness Back exam: Present: normal inspection. Absent: vertebral tenderness Neurological exam: Present: alert, oriented X3, CN II-XII intact, other (Strength to the lower extremities is 5/5.) Psychiatric exam: Present: normal affect, normal mood Skin exam: Present: warm, dry, intact, normal color. Absent: rash Course Vital Signs 04/23/21 21:53 Temperature 98.2 F Pulse Rate 53 L Respiratory 17 Rate Blood Pressure 122/81 O2 Sat by Pulse 96 Oximetry Medical Decision Making - Medical Decision Making 40-year-old female patient presents for the second day in a row for evaluation of low back pain. Physical exam is unremarkable. Neurovascular status is intact. No concerning symptoms for cauda equina. I offered patient injections for pain and muscle relaxer. She declined. States the tylenol #3 starter pack is not helping. We will try tramadol starter pack. Instructions to continue heat application, muscle relaxer, and lidoderm patch. Instructed to follow up with her primary care physician for any further prescriptions or pain management. Continue the antibiotic for her UTI. Return parameters are discussed in detail. She verbalizes understanding and agrees with this plan. My attending is Dr. Long. Disposition Clinical Impression: Back pain Disposition: HOME SELF-CARE Condition: Good Instructions (If sedation given, give patient instructions): Acute Low Back Pain (ED) Additional Instructions: Fly warm moist heat to the low back. Perform gentle range of motion. Take medication as directed. Follow up with primary care physician for her prescriptions. Return for any new, worsening, or concerning symptoms. Is patient prescribed a controlled substance at d/c from ED?: No Referrals: Azul Lorenz DO [Primary Care Provider] - 1-2 days Time of Disposition: 22:46
== END 2021-04-23 22:57 | disposition home or self-care (01) ==
LOC: EC 21:12
DX: M54.5 Low back pain (principal); I10 Essential (primary) hypertension; Z82.49 Family history of ischemic heart disease and other diseases of the circulatory system; Z86.73 Personal history of transient ischemic attack (TIA), and cerebral infarction without residual deficits; Z82.3 Family history of stroke; Z88.5 Allergy status to narcotic agent; Z88.6 Allergy status to analgesic agent; Z88.8 Allergy status to other drugs, medicaments and biological substances; Z90.49 Acquired absence of other specified parts of digestive tract
CPT/HCPCS: 99283

== ENCOUNTER 2021-05-12 14:29 | Inpatient (IN) | payer MEDICARE, OTHER ==
[2021-05-12 14:57] LABS: Glucose,Whole Blood 118 mg/dL (75-99)
[2021-05-12] MEDS ORDERED: methylPREDNISolone SOD SUCCI 125 MG/2 ML VIAL IV STA (15:21)
[2021-05-12] MEDS ORDERED: FAMOTIDINE 20 MG/2 ML VIAL IV STA (15:21)
[2021-05-12] MEDS ORDERED: diphenhydrAMINE 50 MG/ML 1 ML VIAL IVP STA (15:21)
--- NOTE | 2021-05-12 15:22 | ED ---
General Adult HPI - General Chief complaint: Weakness Stated complaint: L side foot and hands numb Source: patient Mode of arrival: wheelchair Limitations: no limitations - History of Present Illness Initial comments: Patient is a 40-year-old female with past medical history remarkable for prior CVAs, TIAs, with no residual deficits, so seizure disorder, renal stones, hypertension, asthma who presents emergency Department complaining of acute onset of neurological deficits. Patient states that at 9:30 AM she began feeling numb in her left lower extremity, left face, left arm. She also endorsed left leg weakness at this time. She also states that she began having slurred speech. She was unable to come to the emergency department until recently. I evaluated the patient the beginning of my shift at 3 PM. She is outside the TPA window at this time. However due to the speech being affected, "stroke will be activated. Patient is no other acute complaints at this time. She has any chest pain, difficulty breathing, abdominal pain, nausea, vomiting. She is no residual deficits from prior TIAs or strokes. She states that the symptoms are similar to prior weakness, numbness that she has experienced previously. She otherwise has no acute complaints at this time. She is not on blood thinners. She denies any trauma. Denies any seizures. - Related Data Home Medications Medication Instructions Recorded Confirmed Ibuprofen [Motrin Ib] 400 mg PO BID PRN 05/12/21 05/12/21 Allergies Allergy/AdvReac Type Severity Reaction Status Date / Time Iodinated Contrast Media Allergy Rash/Hives Verified 05/12/21 17:01 [Iodinated Contrast Media - IV Dye] iodine Allergy Rash/Hives Verified 05/12/21 17:01 Iodine and Iodide Containing Allergy Rash/Hives Verified 05/12/21 17:01 Produc bupropion HCl AdvReac Unknown Homicidal Verified 05/12/21 17:01 [From Wellbutrin] Ideation aspirin AdvReac Nausea & Verified 05/12/21 17:01 Vomiting hydromorphone HCl AdvReac Diarrhea Verified 05/12/21 17:01 [From Dilaudid] propoxyphene napsylate AdvReac Nausea & Verified 05/12/21 17:01 [From Darvocet-N] Vomiting steroids Allergy Rash/Hives Uncoded 05/12/21 17:01 Review of Systems ROS Statement: Those systems with pertinent positive or pertinent negative responses have been documented in the HPI. Review of Systems: CONST: Denies fever EYES: Denies blurry vision ENT: Denies nasal congestion C/V: Denies Chest pain RESP: Denies shortness of breath GI: Denies abdominal pain : Denies dysuria SKIN: Denies rash. MSK: Denies joint pain. NEURO: Endorses weakness, slurred speech ROS Other: All systems not noted in ROS Statement are negative. Past Medical History Past Medical History: Asthma, CVA/TIA, Hypertension, Seizure Disorder, Thyroid Disorder Additional Past Medical History / Comment(s): 11/2017 TIA or CVA (pt unsure) with resolved L sided weakness/aphasia but states still has short term memory loss, last seizure in 2016, frequent kidney infections, kidney stones she passed on her own, chronic cervical and low back pain, past fractured coccyx, gestational diabetes. History of Any Multi-Drug Resistant Organisms: MRSA Date of last positivie culture/infection: 1999,2013, 2016 MDRO Source:: right leg Past Surgical History: Appendectomy, Section, Cholecystectomy, Tonsillectomy, Tubal Ligation Additional Past Surgical History / Comment(s): Multiple ear surgeries (x15 left ear & 13 right ear) ended up with eardrum replacements, x2 Past Anesthesia/Blood Transfusion Reactions: No Reported Reaction Additional Past Anesthesia/Blood Transfusion Reaction / Comment(s): PT STATES DIFFICULTY WAKING UP. PTS FATHER ALSO HAS DIFFICULTY WAKING UP. Past Psychological History: ADD/ADHD, Anxiety Smoking Status: Never smoker Past Alcohol Use History: None Reported Past Drug Use History: None Reported - Past Family History Mother Family Medical History: Cancer Additional Family Medical History / Comment(s): KIDNEY CANCER- in 2012 at the age of 68yrs. Father Family Medical History: CVA/TIA, Myocardial Infarction ([place]) Additional Family Medical History / Comment(s): Father had 8 CVAs and 2 MIs[address] His first CT was at age 69yrs and 2[address] was at age 71yrs. He has a pacemaker. He is dyslexic. General Exam - General Exam Comments Initial Comments: General: Appears in no acute distress. HEAD: Normal with no signs of head trauma. EYES: PERRLA, EOMI, conjunctiva normal, no discharge. Pupils are 3 mm and equally reactive bilaterally. ENT: Hearing grossly intact, normal oropharynx. RESPIRATORY: Clear breath sounds bilaterally. No wheezes, rales, or rhonchi. C/V: Regular rate and rhythm. S1 and S2 auscultated, no edema, peripheral pulses 2+ and intact throughout ABD: Abd is soft, nontender, nondistended EXT: Normal range of motion, no obvious deformity SKIN: No rashes or lesions observed on exposed skin. NEURO: Alert and oriented 4. NIH stroke scale is 3, 1 for dysarthria, 1 left leg motor drift, and 1 mild sensory deficits on the left side. Cranial nerves II through XII are intact. No other focal deficits at this time. GCS is 15. Cerebellar function is intact as evident by normal finger to nose testing as well as absence of dysdiadochokinesia. Limitations: no limitations Course Vital Signs 05/12/21 05/12/21 05/12/21 14:43 16:53 17:20 Temperature 98.5 F 98.6 F Pulse Rate 77 77 82 Respiratory 20 18 18 Rate Blood Pressure 131/87 136/83 133/85 O2 Sat by Pulse 97 97 97 Oximetry 05/12/21 05/12/21 19:27 20:23 Temperature 97.8 F 98.6 F Pulse Rate 83 80 Respiratory 18 18 Rate Blood Pressure 138/80 134/82 O2 Sat by Pulse 98 98 Oximetry Medical Decision Making - Medical Decision Making Based on patient's presentation and physical exam, I'm concerned for possible acute ischemic stroke based on her symptoms. NIH stroke scale is 3. Last known well was at 9:30 this morning, which places her approximately 5 and half hours out from her last known well which makes her not a TPA candidate. She states that her symptoms have not progressed since then. Stroke laboratory studies will be obtained including basic labs, troponin, EKG, chest x-ray. She'll be connected to continuous cardiac monitoring. Patient's point of care blood glucose is normal at 118. We will obtain CT brain without contrast as well as CT head neck and brain. Patient does have an ALLERGY to contrast dye, however due to the urgency and necessity of imaging, she will be given the contrast dye ALLERGY prophylaxis of 125 mg of cimetidine, famotidine, Benadryl. Patient states she has received this before and has received contrast studies without incident. Patient's EKG shows no signs of acute ischemia.Chest x-ray revealed no acute cardiopulmonary process. CT of the brain and CTA of the brain and neck revealed no acute intracranial abnormalities. CTs were negative for acute signs of stroke. Patient's laboratory studies are remarkable for a negative troponin. Urinalysis appears to be a contaminated catch. She is asymptomatic in terms of urinary complaints and therefore antibiotics will be held due to it being a contaminated catch. The remainder of her laboratory studies are unremarkable. On reevaluation, NIH is still 3. I did discuss with her that I would like to admitted to the hospital for observation and for neurology evaluation. Loading dose of plavix was administered, as she is allergic to aspirin. She was in agreement this plan. I spoke to neurologist Dr. Daly who agreed to evaluate the patient and requested that I order an MRI for the patient tomorrow. Patient will be admitted under Dr. Douglas. Patient was admitted to telemetry bed in serious condition. - Lab Data Result diagrams: 05/12/21 15:35 05/12/21 15:35 Lab Results 05/12/21 05/12/21 05/12/21 Range/Units 14:55 15:35 15:35 WBC 10.5 (3.8-10.6) k/uL RBC 5.13 (3.80-5.40) m/uL Hgb 14.2 (11.4-16.0) gm/dL Hct 43.4 (34.0-46.0) % MCV 84.6 (80.0-100.0) fL MCH 27.6 (25.0-35.0) pg MCHC 32.7 (31.0-37.0) g/dL RDW 14.7 (11.5-15.5) % Plt Count 348 (150-450) k/uL MPV 7.9 Neutrophils % 73 % Lymphocytes % 18 % Monocytes % 4 % Eosinophils % 4 % Basophils % 0 % Neutrophils # 7.6 (1.3-7.7) k/uL Lymphocytes # 1.9 (1.0-4.8) k/uL Monocytes # 0.4 (0-1.0) k/uL Eosinophils # 0.4 (0-0.7) k/uL Basophils # 0.1 (0-0.2) k/uL PT 9.7 (9.0-12.0) sec INR 0.9 (<1.2) APTT 24.0 (22.0-30.0) sec Sodium (137-145) mmol/L Potassium (3.5-5.1) mmol/L Chloride (98-107) mmol/L Carbon Dioxide (22-30) mmol/L Anion Gap mmol/L BUN (7-17) mg/dL Creatinine (0.52-1.04) mg/dL Est GFR (CKD-EPI)AfAm (>60 ml/min/1.73 sqM) Est GFR (CKD-EPI)NonAf (>60 ml/min/1.73 sqM) Glucose (74-99) mg/dL POC Glucose (mg/dL) 118 H (75-99) mg/dL POC Glu Switcher ID Ellyn Carpenter Calcium (8.4-10.2) mg/dL Total Bilirubin (0.2-1.3) mg/dL AST (14-36) U/L ALT (4-34) U/L Alkaline Phosphatase (38-126) U/L Troponin I (0.000-0.034) ng/mL Total Protein (6.3-8.2) g/dL Albumin (3.5-5.0) g/dL HCG, Qual Urine Color Urine Appearance (Clear) Urine pH (5.0-8.0) Ur Specific Stetson (1.001-1.035) Urine Protein (Negative) Urine Glucose (UA) (Negative) Urine Ketones (Negative) Urine Blood (Negative) Urine Nitrite (Negative) Urine Bilirubin (Negative) Urine Urobilinogen (<2.0) mg/dL Ur Leukocyte Esterase (Negative) Urine RBC (0-5) /hpf Urine WBC (0-5) /hpf Ur Squamous Epith Cells (0-4) /hpf Urine Mucus (None) /hpf Urine Opiates Screen (NotDetected) Ur Oxycodone Screen (NotDetected) Urine Methadone Screen (NotDetected) Ur Propoxyphene Screen (NotDetected) Ur Barbiturates Screen (NotDetected) U Tricyclic Antidepress (NotDetected) Ur Phencyclidine Scrn (NotDetected) Ur Amphetamines Screen (NotDetected) U Methamphetamines Scrn (NotDetected) U Benzodiazepines Scrn (NotDetected) Urine Cocaine Screen (NotDetected) U Marijuana (THC) Screen (NotDetected) 05/12/21 05/12/21 05/12/21 Range/Units 15:35 15:35 16:45 WBC (3.8-10.6) k/uL RBC (3.80-5.40) m/uL Hgb (11.4-16.0) gm/dL Hct (34.0-46.0) % MCV (80.0-100.0) fL MCH (25.0-35.0) pg MCHC (31.0-37.0) g/dL RDW (11.5-15.5) % Plt Count (150-450) k/uL MPV Neutrophils % % Lymphocytes % % Monocytes % % Eosinophils % % Basophils % % Neutrophils # (1.3-7.7) k/uL Lymphocytes # (1.0-4.8) k/uL Monocytes # (0-1.0) k/uL Eosinophils # (0-0.7) k/uL Basophils # (0-0.2) k/uL PT (9.0-12.0) sec INR (<1.2) APTT (22.0-30.0) sec Sodium 135 L (137-145) mmol/L Potassium 4.3 (3.5-5.1) mmol/L Chloride 103 (98-107) mmol/L Carbon Dioxide 27 (22-30) mmol/L Anion Gap 5 mmol/L BUN 13 (7-17) mg/dL Creatinine 0.57 (0.52-1.04) mg/dL Est GFR (CKD-EPI)AfAm >90 (>60 ml/min/1.73 sqM) Est GFR (CKD-EPI)NonAf >90 (>60 ml/min/1.73 sqM) Glucose 121 H (74-99) mg/dL POC Glucose (mg/dL) (75-99) mg/dL POC Glu Switcher ID Calcium 9.0 (8.4-10.2) mg/dL Total Bilirubin 0.2 (0.2-1.3) mg/dL AST 22 (14-36) U/L ALT 17 (4-34) U/L Alkaline Phosphatase 62 (38-126) U/L Troponin I <0.012 (0.000-0.034) ng/mL Total Protein 6.6 (6.3-8.2) g/dL Albumin 3.7 (3.5-5.0) g/dL HCG, Qual Not Detected Urine Color Yellow Urine Appearance Cloudy H (Clear) Urine pH 6.5 (5.0-8.0) Ur Specific St[place]on 1.031 (1.001-1.035) Urine Protein Negative (Negative) Urine Glucose (UA) Negative (Negative) Urine Ketones Negative (Negative) Urine Blood Negative (Negative) Urine Nitrite Negative (Negative) Urine Bilirubin Negative (Negative) Urine Urobilinogen <2.0 (<2.0) mg/dL Ur Leukocyte Esterase Large H (Negative) Urine RBC 1 (0-5) /hpf Urine WBC 21 H (0-5) /hpf Ur Squamous Epith Cells 3 (0-4) /hpf Urine Mucus Rare H (None) /hpf Urine Opiates Screen Not Detected (NotDetected) Ur Oxycodone Screen Not Detected (NotDetected) Urine Methadone Screen Not Detected (NotDetected) Ur Propoxyphene Screen Not Detected (NotDetected) Ur Barbiturates Screen Not Detected (NotDetected) U Tricyclic Antidepress Not Detected (NotDetected) Ur Phencyclidine Scrn Not Detected (NotDetected) Ur Amphetamines Screen Not Detected (NotDetected) U Methamphetamines Scrn Not Detected (NotDetected) U Benzodiazepines Scrn Not Detected (NotDetected) Urine Cocaine Screen Not Detected (NotDetected) U Marijuana (THC) Screen Not Detected (NotDetected) - EKG Data -: EKG Interpreted by Me EKG Comments: 12-lead Electrocardiogram Interpretation Note EKG was reviewed and interpreted by myself. 12-lead ECG performed at 1453 is interpreted by me as revealing normal sinus rhythm at a rate of 81 beats per minute. Godwin is normal. WV interval is 160 ms, QRS durations 100 ms, QTc is 443 ms.. There were no ST or T wave abnormalities to suggest myocardial ischemia or injury. R wave progression across the precordium was satisfactory. By my interpretation this EKG is non-diagnostic for acute ischemia. Disposition Clinical Impression: CVA (cerebral vascular accident), Neurological deficit present Disposition: ADMITTED IP TO THIS [facility] Condition: Serious
[2021-05-12 15:48] LABS: INR 0.9 (<1.2); Prothrombin Time 9.7 sec (9.0-12.0)
[2021-05-12 15:49] LABS: ALT 17 U/L (4-34); AST 22 U/L (14-36); African American GFR (CKD) >90 (>60 ml/min/1.73 sqM); Albumin 3.7 g/dL (3.5-5.0); Alkaline Phosphatase 62 U/L (38-126); Anion Gap 5 mmol/L; Blood Urea Nitrogen 13 mg/dL (7-17); Carbon Dioxide 27 mmol/L (22-30); Chloride 103 mmol/L (98-107); Glucose 121 mg/dL (74-99); Non-African American GFR(CKD) >90 (>60 ml/min/1.73 sqM); Potassium 4.3 mmol/L (3.5-5.1); Sodium 135 mmol/L (137-145); Total Bilirubin 0.2 mg/dL (0.2-1.3); Total Protein 6.6 g/dL (6.3-8.2)
[2021-05-12 15:50] LABS: HCG,Qualitative Serum Not Detected
--- NOTE | 2021-05-12 16:04 | XR ---
EXAMINATION TYPE: XR chest 2V DATE OF EXAM: 05/12/2021 COMPARISON: 11/21/2019 TECHNIQUE: PA and lateral views submitted. HISTORY: Altered mental status FINDINGS: The lungs are clear and there is no pneumothorax, pleural effusion, or focal pneumonia. Heart size mildly prominent with no overt failure. IMPRESSION: 1. No acute process.
--- NOTE | 2021-05-12 16:06 | CT ---
EXAMINATION TYPE: CT brain wo con for TPA DATE OF EXAM: 05/12/2021 COMPARISON: 05/14/2019 HISTORY: 40-year-old female weakness, neurologic deficit, acute, stroke suspected. History of TIA. TECHNIQUE: Examination was done in axial plane without intravenous contrast. Coronal and sagittal r econstructions performed. CT DLP: 1169.8 mGycm Automated exposure control for dose reduction was used. FINDINGS: There is no evidence of acute intracranial hemorrhage, acute ischemic changes, mass, mass-effect, or extra-axial fluid collection. There is no effacement of cerebral sulci or basal subarachnoid cister ns. There is no hydrocephalus. There is no midline shift. Lazaro-white matter distinction is preserv ed. Unchanged partially empty sella. Air-fluid levels bilateral maxillary sinuses. Moderate mucosal thickening ethmoid air cells. Mastoid air cells well pneumatized. IMPRESSION: 1. No acute intracranial abnormality seen. 2. Air fluid levels bilateral maxillary sinuses. Correlate for acute sinusitis.
[2021-05-12 16:18] LABS: Basophils # (A) 0.1 k/uL (0-0.2); Basophils % (A) 0 %; Eosinophils # (A) 0.4 k/uL (0-0.7); Eosinophils % (A) 4 %; HCT 43.4 % (34.0-46.0); HGB 14.2 gm/dL (11.4-16.0); Lymphocytes # (A) 1.9 k/uL (1.0-4.8); Lymphocytes % (A) 18 %; MCH 27.6 pg (25.0-35.0); MCHC 32.7 g/dL (31.0-37.0); MCV 84.6 fL (80.0-100.0); Mean Platelet Volume 7.9; Monocytes # (A) 0.4 k/uL (0-1.0); Monocytes % (A) 4 %; Neutrophils # (A) 7.6 k/uL (1.3-7.7); Neutrophils % (A) 73 %; Platelet Count 348 k/uL (150-450); RBC 5.13 m/uL (3.80-5.40); RDW 14.7 % (11.5-15.5); WBC 10.5 k/uL (3.8-10.6)
--- NOTE | 2021-05-12 16:45 | CT ---
EXAMINATION TYPE: CT angio head neck DATE OF EXAM: 05/12/2021 COMPARISON: 05/11/2018 HISTORY: 40-year-old female weakness, history of TIA, neurologic deficit, acute, stroke suspected. TECHNIQUE: Contiguous axial scanning of the head and neck performed with IV Contrast, patient injecte d with 65 mL of Isovue 370. Coronal/sagittal MIP reconstructions performed. 3-D reconstructions gener ated on a dedicated independent workstation. CT DLP: 767.9 mGycm Automated exposure control for dose reduction was used. FINDINGS: NECK: Conventional arch vessel branching anatomy. 1.4 cm right thyroid lobe nodule is redemonstrated. The right vertebral artery is slightly more dominant. Both vertebral arteries are patent throughout t he course. The right and left common and internal carotid arteries are widely patent. NASCET criteria was utilized. HEAD: There is vertebrobasilar arteries are patent as are the remainder of the posterior circulation. The internal carotid arteries and remainder of the anterior circulation are patent. No significant stenosis or aneurysmal changes seen. Dural venous sinuses are patent. Left transverse sinus hypoplastic. IMPRESSION: 1. NECK: WIDELY PATENT VERTEBRAL AND CAROTID ARTERIES OF THE NECK. 2. HEAD: NO LARGE VESSEL INTRACRANIAL ARTERIAL OCCLUSION, SIGNIFICANT STENOSIS, OR ANEURYSMAL CHANGE IS SEEN.
[2021-05-12] MEDS ORDERED: CLOPIDOGREL 75 MG TAB PO STA (16:51)
[2021-05-12 17:02] LABS: Appearance,Urine Cloudy (Clear); Bilirubin,Urine Negative (Negative); Blood,Urine Negative (Negative); Color,Urine Yellow; Glucose,Urine (UA) Negative (Negative); Ketones,Urine Negative (Negative); Leukocyte Esterase,Urine Large (Negative); Mucus,Urine Rare /hpf; Nitrite,Urine Negative (Negative); PH, Urine 6.5 (5.0-8.0); Protein,Urine Negative (Negative); RBC,Urine 1 /hpf (0-5); Specific Gravity,Urine 1.031 (1.001-1.035); Squamous Epithelial Cell,Urine 3 /hpf (0-4); Urobilinogen,Urine <2.0 mg/dL (<2.0); WBC,Urine 21 /hpf (0-5)
[2021-05-12 17:18] LABS: Amphetamine Screen,Urine Not Detected (NotDetected); Barbiturate Screen,Urine Not Detected (NotDetected); Benzodiazepines Screen,Urine Not Detected (NotDetected); Cocaine Screen,Urine Not Detected (NotDetected); Methadone Screen, Urine Not Detected (NotDetected); Opiate Screen,Urine Not Detected (NotDetected); Oxycodone Screen, Urine Not Detected (NotDetected); Phencyclidine Screen,Urine Not Detected (NotDetected); Tricyclic Antidepressant,Urine Not Detected (NotDetected); Urn Cannabinoid Scrn Not Detected (NotDetected)
[2021-05-13] MEDS: ACETAMINOPHEN TAB 325 MG TAB PO PRN ×2 (00:06→06:46)
[2021-05-13 06:54] VITALS: RESP 18; TEMP 97.6
[2021-05-13] MEDS ORDERED: CLOPIDOGREL 75 MG TAB PO SCH (09:00)
--- NOTE | 2021-05-13 10:42 | P.CNNES ---
History of Present Illness Consult date: 05/13/21 Requesting physician: Evaristo Lorenz Reason for Consult: cva History of Present Illness: This is a 40-year-old woman with medical history of left sided weakness and numbnes in 2018 and negative for stroke, seizure, hypertension who presented emergency department on 05/12/2021 for left sided weakness and numbness. l She also states that she has slurred speech. Patient stated the time of onset of her symptoms is 9:30 AM on 05/12/2021. Aseptic presented to our facility at around 14:29 on 05/12/2021. He stated that prior to that she was okay then at 9:30 she noticed that she was having numbness that started in the left at it's of the toes and then ascended all the way up involving the entire left lower extremity as well as upper extremity as well as she noticed weakness in the entire left side as well as she is having slurring the speech. Patient denies of any difficulty swallowing, difficulty the getting her words out besides the slurring the speech. She denies any symptoms over the right side. She denies any current headache right now. Patient stated that her symptoms are similar to the past where she had weakness and numbness she said that she had this twice in 2018 and wishes told that she had a stroke per her neurologist Dr. Kirkpatrick. She stated that she got into a verbal argument with her neurologist in the past so therefore she's not following up with any neurologist. She is not on any aspirin because she is ALLERGIC to it but she is not on any antiplatelets or statins since her neurologist the took her off of it. She stated that the she was told that she has history of seizures and she has shaking of her body but she hasn't had that shaking of the body for the last 1 year and she didn't have any jerking or shaking of any extremities currently and I as stated above she hasn't had any jerking or shaking for last 1 year for her typical seizures. She is not on any antiepileptic drugs. Some of the workup in the hospital consisted of: Initial vital signs: Blood pressure of 131/87, heart rate of 77, respiratory of 20, temperature of 98.5 Fahrenheit oral and pulse ox of 97% at room air. CBC with differential is unremarkable. Chemistry panel is serum glucose 121 which is just minimally elevated but not too remarkable, sodium is 135 just borderline low normal. Otherwise the rest of the chemistry panel is unremarkable. HCG, is not detected. CT of the head is reported as no acute intracranial abnormality seen. Air fluid level bilateral maxillary sinuses. Correlate for acute sinusitis. CT angiography of the head and neck was reported as for the neck it's the reported as widely patent vertebral and carotid arteries of the neck. Wall for the head it's reported as no large vessel intracranial arterial occlusion significant stenosis or aneurysm changes seen. EKG is reported as normal sinus rhythm. Normal EKG. NIH stroke scale per the ED team is 3. Patient received points for 1 for dysarthria, 1 for left lower leg drift and 1 for sensory on the left side. Patient did not receive IV TPA because the patient is outside the window. Per the ED nurse today he stated that the patient states that she has weakness and can't lift her arm or leg but when he does left acid she is able to hold it. She's able to walk without any difficulty. Patient had similar presentation on 05/11/[address] Valdes worked-her up for strokes and was negative. In his note he reported that the patient has some giveaway weakness in the left upper extremity and does not provide good effort Patient had MRI of the brain on 05/13/2018 for left-sided weakness and it was reported as no evidence of recent infarct. Patient had an 2 EEGs in our facility one in 2014 and it's reported as normal. It is reported in the reported that she has history of grand mal seizures and ADHD. She had another EEG in our facility on 05/13/2018 and it's reported as mildly abnormal in diffuse fashion due to slight slowing of the EEG background. The EEG felt to reveal any focal, lateralized or epileptiform abnormality. Review of Systems Review of system: The 12 point system was reviewed and apparent positive and negative per HPI. Past Medical History Past Medical History: Asthma, CVA/TIA, Hypertension, Seizure Disorder, Thyroid Disorder Additional Past Medical History / Comment(s): 11/2017 TIA or CVA (pt unsure) with resolved L sided weakness/aphasia but states still has short term memory loss, last seizure in 2017, frequent kidney infections, kidney stones she passed on her own, chronic cervical and low back pain, past fractured coccyx, gestational diabetes. History of Any Multi-Drug Resistant Organisms: MRSA Date of last positivie culture/infection: 1999,2013, 2016 MDRO Source:: right leg Past Surgical History: Appendectomy, Section, Cholecystectomy, Tonsille ctomy, Tubal Ligation Additional Past Surgical History / Comment(s): Multiple ear surgeries (x15 left ear & 13 right ear) ended up with eardrum replacements, x2 Past Anesthesia/Blood Transfusion Reactions: No Reported Reaction Additional Past Anesthesia/Blood Transfusion Reaction / Comment(s): PT STATES DIFFICULTY WAKING UP. PTS FATHER ALSO HAS DIFFICULTY WAKING UP. Past Psychological History: ADD/ADHD, Anxiety Smoking Status: Never smoker Past Alcohol Use History: None Reported Past Drug Use History: None Reported - Past Family History Mother Family Medical History: Cancer Additional Family Medical History / Comment(s): KIDNEY CANCER- in 2012 at the age of 68yrs. Father Family Medical History: CVA/TIA, Myocardial Infarction ([place]) Additional Family Medical History / Comment(s): Father had 8 CVAs and 2 MIs. His first MD was at age 69yrs and 2nd MD was at age 71yrs. He has a pacemaker. He is dyslexic. Medications and Allergies Home Medications Medication Instructions Recorded Confirmed Type Atorvastatin [Lipitor] 40 mg PO HS #30 tab 05/13/21 Rx Clopidogrel [Plavix] 75 mg PO DAILY #30 tab 05/13/21 Rx Allergies Allergy/AdvReac Type Severity Reaction Status Date / Time Iodinated Contrast Media Allergy Rash/Hives Verified 05/12/21 17:01 [Iodinated Contrast Media - IV Dye] iodine Allergy Rash/Hives Verified 05/12/21 17:01 Iodine and Iodide Containing Allergy Rash/Hives Verified 05/12/21 17:01 Produc bupropion HCl AdvReac Unknown Homicidal Verified 05/12/21 17:01 [From Wellbutrin] Ideation aspirin AdvReac Nausea & Verified 05/12/21 17:01 Vomiting hydromorphone HCl AdvReac Diarrhea Verified 05/12/21 17:01 [From Dilaudid] propoxyphene napsylate AdvReac Nausea & Verified 05/12/21 17:01 [From Darvocet-N] Vomiting steroids Allergy Rash/Hives Uncoded 05/12/21 17:01 Physical Examination - Vital Signs Vital Signs: Vital Signs Temp Pulse Resp BP Pulse Ox 05/13/21 06:52 97.6 F 95 18 139/84 96 05/13/21 00:00 100 16 148/85 95 05/12/21 23:23 96 18 143/85 95 05/12/21 20:23 98.6 F 80 18 134/82 98 05/12/21 19:27 97.8 F 83 18 138/80 98 05/12/21 17:20 98.6 F 82 18 133/85 97 05/12/21 16:53 77 18 136/83 97 05/12/21 14:43 98.5 F 77 20 131/87 97 GENERAL: The patient is lying in bed and is not in acute distress. CHEST: The heart rate is regular rate rhythm. No murmurs to auscultation. No carotid bruit bilaterally. LUNG: Clear to auscultation bilaterally no wheezing noted throughout. Not labored breathing. ABDOMEN/GI: Bowel sounds present in all 4 quadrants. No tenderness to palpation throughout. NEUROLOGICAL: Higher mental function: The patient is awake, alert, oriented to self, place and time. Patient is following commands. No aphasia and no neglect. Cranial nerves: The pupils are round, equal and reactive to light and accommodat ion. Visual estrella are full to confrontation throughout. Extraocular movement is intact no nystagmus is noted. Facial sensation is decreased over the left V2 distribution to touch, otherwise normal throughout. The facial strength is normal throughout. Hearing is normal bilaterally to hand rub. Tongue is midline and moved [id number] without any difficulty. No dysarthria is noted. Shoulder shrug is normal bilaterally. Motor: Gait is deferred. The strength is 4 on the entire left side but seem poor in effort and improves with motivation. Otherwise strength over the right is 5 over 5 throughout. Normal tone and bulk. Cerebellum: Normal finger to nose bilaterally. Sensation: Sensation is decreased to touch over the left side and normal over the right.. Reflexes (right/left): 2+ throughout. Plantars are downgoing bilaterally. Results Urine toxicology screen is not detected Urinalysis appears cloudy, urine leukocyte esterase is large, urine white blood cell was 21 which is possibly suggestive of urinary tract infection. Coagulation study: PT of 9.7, INR 0.9, PTT of 24.0. - Laboratory Findings CBC and BMP: 05/12/21 15:35 05/12/21 15:35 Abnormal Lab Findings: Abnormal Labs 05/12/21 05/12/21 05/12/21 14:55 15:35 16:45 Sodium 135 L Glucose 121 H POC Glucose (mg/dL) 118 H Urine Appearance Cloudy H Ur Leukocyte Esterase Large H Urine WBC 21 H Urine Mucus Rare H Assessment and Plan Assessment: * Left sided weakness as well as numbness and episode of slurred of speech. NIH 3 per ED (No Tpa since outside window). On examination seems effort related (has giveaway weakness and has poor effort). She has similar presentation in 2018. * Reported history of seizures and stated has not had any seizures for the past one year. * History of ADHD Plan: * In the ED the patient was loaded with Plavix 600 mg once then was started on Plavix the 75 mg daily. She did not receive aspirin because she is ALLERGIC to aspirin. I started her on Lipitor 40mg qhs for secondary stroke prophylaxis. * MRI the brain with and without is pending. IF MRI of the brain is positive for stroke than we'll get the rest of stroke workup such as 2-D echo, TSH and hemoglobin A1c for now we'll hold off. * PT, OT and JAVA ANALYST are consulted. * We'll defer the rest of the medical management to the primary team. Next If MR the brain is negative then the patient is clear from a neurological perspective and she needs to follow-up with a neurologist in outpatient within 1-2 weeks. The plan is discussed with the patient's nurse. Thank you for the consultation. Zeke Daly M.D. Neuro-hospitalist Time with Patient: Greater than 30
--- NOTE | 2021-05-13 11:35 | MR ---
EXAMINATION TYPE: MR brain wo con DATE OF EXAM: 05/13/2021 11:27 AM COMPARISON: NONE HISTORY: TIA, CVA Multiplanar and multispin-echo imaging of the brain was performed . The ventricles, basal cisterns and sulci overlying the cerebral convexities are within normal limits. There is no evidence for midline shift or mass effect. Acute intracranial hemorrhage or extra-axial collection is not evident. The brain parenchyma reveals no abnormal increased signal. No acute edema is identified. The paranasal sinuses and mastoid air cells are well-aerated. IMPRESSION: Unremarkable MRI of the brain.
[2021-05-13 11:45] VITALS: BP 135/85; PULSE 87
[2021-05-13] MEDS ORDERED: ATORVASTATIN 40 MG TAB PO SCH (21:00)
== END 2021-05-13 14:00 | disposition home or self-care (01) | DRG 65 ==
LOC: EC 14:29 → 3SCARD 17:16
PROVIDERS: ADMIT Family Medicine; ATTEND Family Medicine
DX: I63.9 Cerebral infarction, unspecified (principal); Z16.24 Resistance to multiple antibiotics; F41.9 Anxiety disorder, unspecified; F90.9 Attention-deficit hyperactivity disorder, unspecified type; R29.703 NIHSS score 3; J45.909 Unspecified asthma, uncomplicated; I10 Essential (primary) hypertension; E07.9 Disorder of thyroid, unspecified; G89.29 Other chronic pain; M54.5 Low back pain; Z87.442 Personal history of urinary calculi; Z86.73 Personal history of transient ischemic attack (TIA), and cerebral infarction without residual deficits; Z86.32 Personal history of gestational diabetes; Z82.49 Family history of ischemic heart disease and other diseases of the circulatory system; Z82.3 Family history of stroke; Z80.51 Family history of malignant neoplasm of kidney; Z79.899 Other long term (current) drug therapy; Z79.02 Long term (current) use of antithrombotics/antiplatelets; Z88.6 Allergy status to analgesic agent; Z91.041 Radiographic dye allergy status; R41.3 Other amnesia; Z86.14 Personal history of Methicillin resistant Staphylococcus aureus infection; R56.9 Unspecified convulsions
CPT/HCPCS: 36415; 70450; 70496; 70498; 70551; 71046; 80053; 80306; 81001; 84484; 84703; 85025; 85610; 85730; 87086; 93005; 96374; 96375; 99285

== ENCOUNTER 2021-05-26 18:07 | Observation (INO) | payer MEDICARE, OTHER ==
--- NOTE | 2021-05-26 18:31 | ED ---
Neuro HPI - General Chief Complaint: Neuro Symptoms/Deficit Stated Complaint: lt sided numbness, slurred speech Time Seen by Provider: 05/26/21 18:20 Source: patient Mode of arrival: wheelchair Limitations: physical limitation - History of Present Illness Is the patient presenting with stroke symptoms?: Yes Initial Comments: 40-year-old female with past history of CVA, TIA, hypertension presents emergency department with reported strokelike symptoms. The patient states that she went to sleep at 1:30 PM and when she awoke, she had notable numbness and tingling to the left side of her body. Also had left upper and left lower extremity weakness. Patient has had multiple events previous concerning for strokes. She was seen previously this month for similar complaint. She had an MRI which was negative. She was placed on Plavix which she has been taking at home and denies any missed doses. She denies any fevers or chills. No nausea or vomiting. No recent head trauma. No other alleviating, precipitating or modifying factors - Related Data Home Medications: Home Medications Medication Instructions Recorded Confirmed Atorvastatin [Lipitor] 40 mg PO DAILY 05/26/21 05/26/21 Previous Rx's Medication Instructions Recorded Clopidogrel [Plavix] 75 mg PO DAILY #30 tab 05/13/21 Acetaminophen Tab [Tylenol] 650 mg PO Q6HR PRN #30 tab 05/28/21 Cyanocobalamin [Vitamin B-12] 1,000 mcg PO DAILY 30 Days #60 tab 05/28/21 Folic Acid 1 mg PO DAILY 30 Days #30 tab 05/28/21 Allergies/Adverse Reactions: Allergies Allergy/AdvReac Type Severity Reaction Status Date / Time Iodinated Contrast Media Allergy Rash/Hives Verified 05/26/21 18:37 [Iodinated Contrast Media - IV Dye] iodine Allergy Rash/Hives Verified 05/26/21 18:37 Iodine and Iodide Containing Allergy Rash/Hives Verified 05/26/21 18:37 Produc bupropion HCl AdvReac Unknown Homicidal Verified 05/26/21 18:37 [From Wellbutrin] Ideation aspirin AdvReac Nausea & Verified 05/26/21 18:37 Vomiting hydromorphone HCl AdvReac Diarrhea Verified 05/26/21 18:37 [From Dilaudid] propoxyphene napsylate AdvReac Nausea & Verified 05/26/21 18:37 [From Darvocet-N] Vomiting steroids Allergy Rash/Hives Uncoded 05/26/21 18:19 Review of Systems ROS Statement: Those systems with pertinent positive or pertinent negative responses have been documented in the HPI. ROS Other: All systems not noted in ROS Statement are negative. General Exam Limitations: no limitations General appearance: alert, in no apparent distress Head exam: Present: atraumatic, normocephalic, normal inspection Eye exam: Present: normal appearance, PERRL, EOMI. Absent: scleral icterus, conjunctival injection, periorbital swelling ENT exam: Present: normal exam, mucous membranes moist Neck exam: Present: normal inspection. Absent: tenderness, meningismus, lymphadenopathy Respiratory exam: Present: normal lung sounds bilaterally. Absent: respiratory distress, wheezes, rales, rhonchi, stridor Cardiovascular Exam: Present: regular rate, normal rhythm, normal heart sounds. Absent: systolic murmur, diastolic murmur, rubs, gallop, clicks GI/Abdominal exam: Present: soft, normal bowel sounds. Absent: distended, tenderness, guarding, rebound, rigid Extremities exam: Present: full ROM, normal capillary refill, other (4/5 strength lue, 3/5 strength lle). Absent: tenderness, pedal edema, joint swelling, calf tenderness Back exam: Present: normal inspection Neurological exam: Present: alert, oriented X3, CN II-XII intact Psychiatric exam: Present: normal affect, normal mood Skin exam: Present: warm, dry, intact, normal color. Absent: rash Stroke [facility] - Lab Data Result diagrams: 05/27/21 04:47 05/27/21 04:47 Lab Results 05/26/21 05/26/21 05/26/21 Range/Units 19:00 19:00 19:00 WBC 16.0 H (3.8-10.6) k/uL RBC 4.75 (3.80-5.40) m/uL Hgb 13.3 (11.4-16.0) gm/dL Hct 39.5 (34.0-46.0) % MCV 83.1 (80.0-100.0) fL MCH 28.0 (25.0-35.0) pg MCHC 33.7 (31.0-37.0) g/dL RDW 15.3 (11.5-15.5) % Plt Count 293 (150-450) k/uL MPV 7.6 Neutrophils % 79 % Lymphocytes % 15 % Monocytes % 3 % Eosinophils % 2 % Basophils % 0 % Neutrophils # 12.6 H (1.3-7.7) k/uL Lymphocytes # 2.3 (1.0-4.8) k/uL Monocytes # 0.5 (0-1.0) k/uL Eosinophils # 0.3 (0-0.7) k/uL Basophils # 0.0 (0-0.2) k/uL PT 9.8 (9.0-12.0) sec INR 0.9 (<1.2) APTT 24.0 (22.0-30.0) sec Sodium 136 L (137-145) mmol/L Potassium 3.7 (3.5-5.1) mmol/L Chloride 105 (98-107) mmol/L Carbon Dioxide 25 (22-30) mmol/L Anion Gap 6 mmol/L BUN 11 (7-17) mg/dL Creatinine 0.63 (0.52-1.04) mg/dL Est GFR (CKD-EPI)AfAm >90 (>60 ml/min/1.73 sqM) Est GFR (CKD-EPI)NonAf >90 (>60 ml/min/1.73 sqM) Glucose 105 H (74-99) mg/dL Calcium 8.4 (8.4-10.2) mg/dL Total Bilirubin 0.1 L (0.2-1.3) mg/dL AST 15 (14-36) U/L ALT 14 (4-34) U/L Alkaline Phosphatase 59 (38-126) U/L Troponin I (0.000-0.034) ng/mL Total Protein 6.1 L (6.3-8.2) g/dL Albumin 3.5 (3.5-5.0) g/dL 05/26/21 Range/Units 19:00 WBC (3.8-10.6) k/uL RBC (3.80-5.40) m/uL Hgb (11.4-16.0) gm/dL Hct (34.0-46.0) % MCV (80.0-100.0) fL MCH (25.0-35.0) pg MCHC (31.0-37.0) g/dL RDW (11.5-15.5) % Plt Count (150-450) k/uL MPV Neutrophils % % Lymphocytes % % Monocytes % % Eosinophils % % Basophils % % Neutrophils # (1.3-7.7) k/uL Lymphocytes # (1.0-4.8) k/uL Monocytes # (0-1.0) k/uL Eosinophils # (0-0.7) k/uL Basophils # (0-0.2) k/uL PT (9.0-12.0) sec INR (<1.2) APTT (22.0-30.0) sec Sodium (137-145) mmol/L Potassium (3.5-5.1) mmol/L Chloride (98-107) mmol/L Carbon Dioxide (22-30) mmol/L Anion Gap mmol/L BUN (7-17) mg/dL Creatinine (0.52-1.04) mg/dL Est GFR (CKD-EPI)AfAm (>60 ml/min/1.73 sqM) Est GFR (CKD-EPI)NonAf (>60 ml/min/1.73 sqM) Glucose (74-99) mg/dL Calcium (8.4-10.2) mg/dL Total Bilirubin (0.2-1.3) mg/dL AST (14-36) U/L ALT (4-34) U/L Alkaline Phosphatase (38-126) U/L Troponin I <0.012 (0.000-0.034) ng/mL Total Protein (6.3-8.2) g/dL Albumin (3.5-5.0) g/dL - Medical Decision Making Upon arrival patient is placed in room 5. A thorough history and physical exam is performed. IV is established. NIH is assessed and is a 3. Laboratory studies were conducted and the patient went for a CT of her brain. As the patient has had multiple CTs previously I did discussed the risk of repetitive radiation exposure. The patient is aware of these risks and accepting to have a CT performed at this time. Symptom onset could have been as early as 1:30 PM as her symptoms were present when she awoke from sleep. The patient does present at 6:30 PM she outside the TPA window. Laboratory studies were reviewed and demonstrated a white count of 16. CT of the patient's brain demonstrates no acute findings. The patient is a 30 on Plavix I did call and speak with Dr. Daly. He does recommend that I give the patient dose of Brillinta. Patient will be admitted for neurology consultation. Spoke with Meghna who is covering for Dr. Arce. She accepted admission. Patient taken to the floor in stable condition 05/26/21 23:03 EKG demonstrates normal sinus rhythm with a ventricular rate of 74. CT interval 156. QRS 92. QTC of 432. No acute ST segment elevations or depressions Past Medical History Past Medical History: Asthma, CVA/TIA, Hypertension, Seizure Disorder, Thyroid Disorder Additional Past Medical History / Comment(s): 11/2017 TIA or CVA (pt unsure) with resolved L sided weakness/aphasia but states still has short term memory loss, last seizure in 2016, frequent kidney infections, kidney stones she passed on her own, chronic cervical and low back pain, past fractured coccyx, gestational diabetes. History of Any Multi-Drug Resistant Organisms: MRSA Date of last positivie culture/infection: 1999,2013, 2016 MDRO Source:: right leg Past Surgical History: Appendectomy, Section, Cholecystectomy, Tonsillectomy, Tubal Ligation Additional Past Surgical History / Comment(s): Multiple ear surgeries (x15 left ear & 13 right ear) ended up with eardrum replacements, x2 Past Anesthesia/Blood Transfusion Reactions: No Reported Reaction Additional Past Anesthesia/Blood Transfusion Reaction / Comment(s): PT STATES DIFFICULTY WAKING UP. PTS FATHER ALSO HAS DIFFICULTY WAKING UP. Past Psychological History: ADD/ADHD, Anxiety Smoking Status: Never smoker Past Alcohol Use History: None Reported Past Drug Use History: None Reported - Past Family History Mother Family Medical History: Cancer Additional Family Medical History / Comment(s): KIDNEY CANCER- in 2012 at the age of 68yrs. Father Family Medical History: CVA/TIA, Myocardial Infarction ([place]) Additional Family Medical History / Comment(s): Father had 8 CVAs and 2 MIs. H is first IN was at age 69yrs and 2nd IN was at age 71yrs. He has a pacemaker. He is dyslexic. Course Vital Signs 05/26/21 05/26/21 18:17 19:49 Temperature 97.9 F Pulse Rate 78 64 Respiratory 18 18 Rate Blood Pressure 140/81 142/91 O2 Sat by Pulse 96 100 Oximetry Disposition Clinical Impression: Transient ischemic attack (TIA) Disposition: ADMITTED IP TO THIS HOSP Condition: Stable Is patient prescribed a controlled substance at d/c from ED?: No Decision to Admit Reason: Admit from EC Decision Date: 05/26/21 Decision Time: 20:07
[2021-05-26 19:06] LABS: Basophils % (A) 0 %; Eosinophils # (A) 0.3 k/uL (0-0.7); Eosinophils % (A) 2 %; HCT 39.5 % (34.0-46.0); HGB 13.3 gm/dL (11.4-16.0); Lymphocytes # (A) 2.3 k/uL (1.0-4.8); Lymphocytes % (A) 15 %; MCHC 33.7 g/dL (31.0-37.0); MCV 83.1 fL (80.0-100.0); Mean Platelet Volume 7.6; Monocytes # (A) 0.5 k/uL (0-1.0); Monocytes % (A) 3 %; Neutrophils # (A) 12.6 k/uL (1.3-7.7); Neutrophils % (A) 79 %; Platelet Count 293 k/uL (150-450); RBC 4.75 m/uL (3.80-5.40); RDW 15.3 % (11.5-15.5)
[2021-05-26 19:14] LABS: ALT 14 U/L (4-34); AST 15 U/L (14-36); African American GFR (CKD) >90 (>60 ml/min/1.73 sqM); Albumin 3.5 g/dL (3.5-5.0); Alkaline Phosphatase 59 U/L (38-126); Anion Gap 6 mmol/L; Blood Urea Nitrogen 11 mg/dL (7-17); Calcium 8.4 mg/dL (8.4-10.2); Carbon Dioxide 25 mmol/L (22-30); Chloride 105 mmol/L (98-107); Glucose 105 mg/dL (74-99); Non-African American GFR(CKD) >90 (>60 ml/min/1.73 sqM); Potassium 3.7 mmol/L (3.5-5.1); Sodium 136 mmol/L (137-145); Total Bilirubin 0.1 mg/dL (0.2-1.3); Total Protein 6.1 g/dL (6.3-8.2)
[2021-05-26 19:28] LABS: INR 0.9 (<1.2); Prothrombin Time 9.8 sec (9.0-12.0)
--- NOTE | 2021-05-26 19:29 | CT ---
EXAMINATION TYPE: CT brain wo con DATE OF EXAM: 05/26/2021 COMPARISON: 05/12/2021 HISTORY: left side numbness CT DLP: 1102.4 mGycm Automated exposure control for dose reduction was used. Ventricles have normal size. There is no mass effect nor midline shift. There is no sign of intracran ial hemorrhage. Calvarium is intact. There is no evidence of cerebral edema. IMPRESSION: Negative unenhanced head CT scan. There is clearing of the left maxillary sinusitis to a large extent compared to old exam.
--- NOTE | 2021-05-26 19:55 | XR ---
EXAMINATION TYPE: XR chest 2V DATE OF EXAM: 05/26/2021 COMPARISON: 05/12/2021 HISTORY: Mental status TECHNIQUE: FINDINGS: Heart and mediastinum are normal. Lungs are clear. Diaphragm is normal. Bony thorax is inta ct. Pulmonary vascularity is normal. There are chest leads. IMPRESSION: Normal chest. No change.
[2021-05-26] MEDS ORDERED: NALOXONE 0.4 MG/ML 1 ML VIAL IV PRN (20:07)
[2021-05-26] MEDS: TICAGRELOR 90 MG TAB PO SCH (22:57)
[2021-05-27 05:17] LABS: Basophils % (A) 0 %; Eosinophils # (A) 0.4 k/uL (0-0.7); Eosinophils % (A) 3 %; HCT 37.2 % (34.0-46.0); HGB 12.5 gm/dL (11.4-16.0); Lymphocytes # (A) 1.7 k/uL (1.0-4.8); Lymphocytes % (A) 13 %; MCH 28.8 pg (25.0-35.0); MCHC 33.5 g/dL (31.0-37.0); MCV 86.1 fL (80.0-100.0); Mean Platelet Volume 8.1; Monocytes # (A) 0.5 k/uL (0-1.0); Monocytes % (A) 4 %; Neutrophils # (A) 10.3 k/uL (1.3-7.7); Neutrophils % (A) 79 %; Platelet Count 251 k/uL (150-450); RBC 4.32 m/uL (3.80-5.40); RDW 15.4 % (11.5-15.5); WBC 13.1 k/uL (3.8-10.6)
[2021-05-27 05:33] LABS: African American GFR (CKD) >90 (>60 ml/min/1.73 sqM); Anion Gap 6 mmol/L; Blood Urea Nitrogen 11 mg/dL (7-17); Calcium 8.4 mg/dL (8.4-10.2); Carbon Dioxide 27 mmol/L (22-30); Chloride 106 mmol/L (98-107); Glucose 126 mg/dL (74-99); Non-African American GFR(CKD) >90 (>60 ml/min/1.73 sqM); Sodium 139 mmol/L (137-145)
[2021-05-27] MEDS: ATORVASTATIN 40 MG TAB PO SCH (09:01)
--- NOTE | 2021-05-27 09:30 | P.CNNES ---
History of Present Illness Consult date: 05/27/21 Requesting physician: Pricilla Berg Reason for Consult: acute left sided weakness, possible tia History of Present Illness: This is a 40-year-old woman with history of left-sided weakness numbness in 2018 which was negative for stroke similar presentation on 05/13/2021 with also slurred speech and negative for stroke, reported seizure (and has not had seizure in the last one year) and ADHD who presented to our emergency department on 05/26/2021 for worsening left sided weakness and paresethesia. According to the patient she stated that the since 05/13/2021 and she continued to have the left-sided weakness and the numbness tingling which has not resolved about yesterday and at around 2:30 PM she was shopping with the her sister and all of a sudden that basically she was confused and she didn't know where she was at. The episode lasted a few minutes. According to the patient the she did not have any urinary, bowel, tongue bite, denied any the fixed gaze deviation, foaming around the mouth, any the noticeable jerking of any extremities witnessed by family members. So she went back home and she slapped and slept from 3 PM yesterday to 6 PM area when she woke up she noticed that she is having worsening of her numbness tingling over the entire left side she stated to follow it started from her foot all the way to the shoulder area and happened all of a sudden. She also noticed that she was slurring her speech. She also noticed that her left side is weaker compared to prior. She did have a headache yesterday. She stated that in the last 2 days she's been having diarrhea. She stated that she's been having double vision that she noticed a few days ago. She denies of any fever, any sick contacts, any the the respiratory complaints. She stated she is compliant taking Plavix 75mg daily. Patient is allergic to aspirin. Patient is also on home medication of Lipitor 40 mg daily. She has an appointment to see Dr. Valdes (neurologist) as outpatient on 06/03/2021. Currently she denies off any headaches. Denies any of any further diarrhea. She still has numbness over the left side and she feels her left side is weak. Patient stated she has family history of Multiple Sclerosis (her mother and grand-mother). I personally saw the patient on 05/13/2021 for similar presentation and had NIH 3 and did not receive IV tpa since outside window and she had stroke work-up: It was felt the patient had effort related (giveaway weakness/poor effort on examination and has similar presentation in 2018). She had MRI Brain w/o and reported as unremarkable. Her HbA1c: 5.8 (normal). CTA head and neck: Negative. It was recommended if negative for stroke then no further work-up (she did not r eceive 2D echo) Some of the work-up in our facility: Initial vital signs: Blood pressure 140/81, heart rate is 78, respiratory of 18, temperature of 97.9 for oral pulse ox of 96% room air. Lipid panel is a triglyceride of 177, cholesterol 171, LDL 110, HDL 26. CBC with differential is initial white blood cells 16.0 and the repeated 13.1 and slightly neutrophilic otherwise is unremarkable. Most recent chemistry panel is on presentation is a glucose 105 but repeated one today is 126 which the is slightly elevated but not remarkable otherwise rest of chemistry panel is seems unremarkable. CT of the head is reported as negative on has had computed tomography scan. There is clearing of the left maxillary sinusitis to a large extent compared to old exam. EKG is reported as normal sinus rhythm. Normal EKG. Chest x-rays reported as normal chest. No change. NIH in the ED was 3 and no TPA since outside the window per ED team. I was called by the ED physician regarding the patient and I was told by the ED physician to the patient had the poor effort on examination. I notified them to stop the Plavix and start the patient on Brilinita. Review of Systems Review of system: The 12 point system was reviewed and apparent positive and negative per HPI. Past Medical History Past Medical History: Asthma, CVA/TIA, Hypertension, Seizure Disorder, Thyroid Disorder Additional Past Medical History / Comment(s): 11/2017 TIA or CVA (pt unsure) with resolved L sided weakness/aphasia but states still has short term memory loss, last seizure in 2017, frequent kidney infections, kidney stones she passed on her own, chronic cervical and low back pain, past fractured coccyx, gestational diabetes. History of Any Multi-Drug Resistant Organisms: MRSA Date of last positivie culture/infection: 1999,2013, 2017 MDRO Source:: right leg Past Surgical History: Appendectomy, Section, Cholecystectomy, Tonsillectomy, Tubal Ligation Additional Past Surgical History / Comment(s): Multiple ear surgeries (x15 left ear & 13 right ear) ended up with eardrum replacements, x2 Past Anesthesia/Blood Transfusion Reactions: No Reported Reaction Additional Past Anesthesia/Blood Transfusion Reaction / Comment(s): PT STATES DIFFICULTY WAKING UP. PTS FATHER ALSO HAS DIFFICULTY WAKING UP. Past Psychological History: ADD/ADHD, Anxiety Smoking Status: Never smoker Past Alcohol Use History: None Reported Past Drug Use History: None Reported - Past Family History Mother Family Medical History: Cancer Additional Family Medical History / Comment(s): KIDNEY CANCER- in 2012 at the age of 68yrs. Father Family Medical History: CVA/TIA, Myocardial Infarction (NM) Additional Family Medical History / Comment(s): Father had 8 CVAs and 2 MIs. His first NM was at age 69yrs and 2nd NM was at age 71yrs. He has a pacemaker. He is dyslexic. Medications and Allergies Home Medications Medication Instructions Recorded Confirmed Type Clopidogrel [Plavix] 75 mg PO DAILY #30 tab 05/13/21 05/26/21 Rx Atorvastatin [Lipitor] 40 mg PO DAILY 05/26/21 05/26/21 History Allergies Allergy/AdvReac Type Severity Reaction Status Date / Time Iodinated Contrast Media Allergy Rash/Hives Verified 05/26/21 18:37 [Iodinated Contrast Media - IV Dye] iodine Allergy Rash/Hives Verified 05/26/21 18:37 Iodine and Iodide Containing Allergy Rash/Hives Verified 05/26/21 18:37 Produc bupropion HCl AdvReac Unknown Homicidal Verified 05/26/21 18:37 [From Wellbutrin] Ideation aspirin AdvReac Nausea & Verified 05/26/21 18:37 Vomiting hydromorphone HCl AdvReac Diarrhea Verified 05/26/21 18:37 [From Dilaudid] propoxyphene napsylate AdvReac Nausea & Verified 05/26/21 18:37 [From Darvocet-N] Vomiting steroids Allergy Rash/Hives Uncoded 05/26/21 18:19 Physical Examination - Vital Signs Vital Signs: Vital Signs Temp Pulse Pulse Resp BP BP Pulse Ox 05/27/21 02:16 82 18 05/27/21 02:00 98.7 F 82 18 122/76 95 05/26/21 23:15 98.3 F 70 20 108/69 96 05/26/21 22:58 98.3 F 74 18 130/52 99 05/26/21 19:49 64 18 142/91 100 05/26/21 18:17 97.9 F 78 18 140/81 96 Intake and Output 05/26/21 05/27/21 05/27/21 22:59 06:59 14:59 Other: Voiding Method Toilet # Voids 2 Weight 122.47 kg 122.47 kg GENERAL: The patient is lying in bed and is not in acute distress. CHEST: The heart rate is regular rate rhythm. No murmurs to auscultation. No carotid bruit bilaterally. LUNG: Clear to auscultation bilaterally no wheezing noted throughout. Not labored breathing. ABDOMEN/GI: Bowel sounds present in all 4 quadrants. No tenderness to palpation throughout. NEUROLOGICAL: Higher mental function: The patient is awake, alert, oriented to self, place and time. Patient is following commands. No aphasia and no neglect. Cranial nerves: The pupils are round, equal and reactive to light and accommodation. Visual estrella are full to confrontation throughout. Extraocular movement is intact no nystagmus is noted. Patient does not have any diplopia on examination. Facial sensation is normal to touch throughout. The facial strength is normal throughout. Hearing is normal bilaterally to hand rub. Tongue is midline and moved [id number] without any difficulty. No dysarthria is noted. Shoulder shrug is normal bilaterally. Motor: Gait is deferred. The strength over the left side is 4 and seems effort related (since with motivation it improves). Otherwise 5 over 5 throughout right. Normal tone and bulk. Cerebellum: Normal finger to nose heel to thayer bilaterally. Sensation: Sensation is decreased to touch over the entire upper and lower extremities but normal to pinprick. Normal propioception. Otherwise normal over the right. Reflexes (right/left): 2+ throughout. Plantars is downgoing over the right and mute over the left. Results - Laboratory Findings CBC and BMP: 05/27/21 04:47 05/27/21 04:47 Abnormal Lab Findings: Abnormal Labs 05/26/21 05/26/21 05/27/21 19:00 19:00 04:47 WBC 16.0 H 13.1 H Neutrophils # 12.6 H 10.3 H Sodium 136 L Glucose 105 H Total Bilirubin 0.1 L Total Protein 6.1 L 05/27/21 04:47 WBC Neutrophils # Sodium Glucose 126 H Total Bilirubin Total Protein Assessment and Plan Assessment: * Acute worsening over the left-sided paresthesia, weakness and slurred speech (Per ED attending on presentation had poor effort. On my examination has poor effort as well. She did have decrease sensation to touch over left upper and lower extremities but normal to pinprick. No dysarthria noticeable). I doubt this is stroke. Rule out Multiple Sclerosis since patient has family history of MS. She has leukocytosis of unknown origin (so cannot purely state her symptoms are functional). * Reported episode of transient confusion yesterday * Similar episodes of left-sided weakness and the paresthesia and negative for stroke (05/13/2021 and 2018) * Reported history of seizure (stated has not had seizure for the past one year) * History of ADHD Plan: * I ordered MRI of the brain as well as cervical spine with and without to rule out any intracranial process or cervical lesion. Also ordered 2-D echo. * Ordered TSH, vitamin B12, folate. Her HbA1c on 05/13/21: 5.8 (normal), therefore does not need to be repeated. * The patient was stopped Plavix and was started on Brilinta 90mg bid. I stopped Brilinta for now for consideration of Lumbar puncture (patient was notified of this and is agreement of stopping antiplatelets). She is allergic to ASA. Continue Lipitor 40 mg daily at bedtime for secondary stroke prophylaxis * It will be a bit tough to get lumbar puncture since was on Plavix and currently on Brilinta (usually anesthesiologist will wait for 5 days until they perform lumbar puncture). * Consulted PT, OT and LEATHER POLISHER. * On cardiac monitoring * Every 4 hours neuro checks * Ordered routine EEG. I will not start the patient on antiepileptic drugs unless there is epileptiform discharges or seizures on the EEG. * We'll defer the rest of the medical management to the primary team. * For DVT prophylaxis: Recommend SCD's for now. The plan is discussed with the nurse. Thank you for the consultation. Zeke Daly MD Neuro-Hospitalist Time with Patient: Greater than 30
--- NOTE | 2021-05-27 14:08 | EEG ---
ELECTROENCEPHALOGRAM REPORT DATE OF SERVICE: 05/27/2021. CLINICAL HISTORY: This is a 40-year-old female with history of seizures who had an episode of confusion on 05/26/2020. The video EEG is obtained to evaluate for seizure epileptiform activity. RELEVANT MEDICATION: Patient is not on any antiepileptic drugs. EEG TYPE: A routine 21 channel EEG is performed with video using 10/20 electrode placement system. DESCRIPTION: Wakefulness, drowsiness and brief stage 2 sleep were obtained. During wakefulness, there is a posterior-dominant rhythm of low to moderate voltage, reactive, well modulated of 10 hertz activity. During drowsiness there is slowing and attenuation of background activity. During stage 2 sleep, there are sleep spindles and K complexes. There is no focal slowing. Interictal and ictal is none. ACTIVATION PROCEDURE: Photic stimulation did not evoke a posterior driving response. There is no abnormality during the photic stimulation. Hyperventilation is not performed. CLINICAL INTERPRETATION: This is a normal routine EEG. There are no focal slowing, epileptiform discharges or seizure on the EEG. Clinical correlation is recommended. NOLAN / RADHAN: [id number] / MTDD
--- NOTE | 2021-05-27 17:52 | MR ---
EXAMINATION TYPE: MR brain/cspine wo DATE OF EXAM: 05/27/2021 COMPARISON: 05/13/2021 MR scan of the brain HISTORY: Paresthesia of left side/slurring speech, R/O MS Multiplanar multiecho imaging of the brain and cervical spine without contrast. Ventricles and sulci appear normal. There is no mass effect nor midline shift. There is no sign of in tracranial hemorrhage. Lazaro and white matter structures have fairly normal signal pattern. There is n o evidence of cerebral edema. Diffusion images show no evidence of an acute infarct. Exam limited by lack of FLAIR images. Corpus callosum is intact. Brainstem is intact. There is no evidence of posterior fossa mass. Sella t urcica appears normal. There is no evidence of orbital mass. There is some mucosal thickening in the ethmoid and maxillary sinuses. Cervical vertebra have normal spacing and alignment. Posterior elements are intact. There is no compr ession fracture. Disc spaces are well-maintained. There is no disc herniation. Cervical spinal cord h as normal signal pattern. There is no edema. There is no spinal stenosis. Prevertebral soft tissues a ppear normal. Facet joints appear intact. There is no cervical paraspinal mass. IMPRESSION: Normal MR scan of the cervical spine. Normal MR scan of the brain. No evidence of demyelinating disease. Ethmoid and maxillary sinusitis. Brain not changed compared to recent exam.
[2021-05-27] MEDS: TICAGRELOR 90 MG TAB PO SCH (18:44)
[2021-05-27] MEDS: ACETAMINOPHEN TAB 325 MG TAB PO PRN (19:32)
--- NOTE | 2021-05-27 21:30 | P.HPIM ---
History of Present Illness H&P Date: 05/27/21 Chief Complaint: Left-sided weakness Patient is a 40-year-old female with a known history of CVA/TIA with resolved left-sided weakness/aphasia but states still has short-term memory loss, history of seizures, hypertension, hypothyroidism, chronic low back pain, ADD/ADHD and anxiety presents to ER with complaints of left-sided weakness. Patient states that she went to sleep at around 1:30 PM and she when she woke up she had numbness and tingling to the left side of her body. Also had left upper and lower extremity weakness. Patient was seen in the hospital with similar complaints about a month back. Patient had stroke work-up including MRI which was negative at that time. Patient was started Plavix. Otherwise patient denies any complaints of headache or dizziness lightheadedness. No fever no chills. No neck stiffness. No recent trauma to the head. No cough or sputum production. No chest pain or shortness of breath. CT head showed negative unenhanced CT head. Clearing of the maxillary sinusitis to a large extent compatible exam. Chest x-ray showed normal chest. No change. EKG showed normal sinus rhythm blood pressure was 140/81 pulse 78 respirations 18 and pulse ox 96% on room air on admission. Laboratory data showed WBC 16.0 hemoglobin 13.3 and platelets 293 sodium 136 potassium 3.7 BUN 11 creatinine 0.63 troponin less than 0.012 Review of Systems Constitutional: Patient denies any fever or chills . No generalized weakness or weight loss. Abdomen: Patient denied nausea vomiting and diarrhea and abdominal pain. Cardiovascular: Patient denies any chest pain or short of breath no palpitations. Respiratory: patient denied any cough or sputum production. No shortness of breath Neurologic: Patient denied any numbness or tingling headache. Musculoskeletal: Patient denies any complaints of joint swelling or deformity. Skin: Negative Psychiatric: Negative Endocrine: No heat or cold intolerance. No recent weight gain. Genitourinary: No dysuria or hematuria. All other 14 point ROS negative except the above Past Medical History Past Medical History: Asthma, CVA/TIA, Hypertension, Seizure Disorder, Thyroid Disorder Additional Past Medical History / Comment(s): 11/2017 TIA or CVA (pt unsure) with resolved L sided weakness/aphasia but states still has short term memory loss, last seizure in 2017, frequent kidney infections, kidney stones she passed on her own, chronic cervical and low back pain, past fractured coccyx, gestational diabetes. History of Any Multi-Drug Resistant Organisms: MRSA Date of last positivie culture/infection: 1999,2013, 2016 MDRO Source:: right leg Past Surgical History: Appendectomy, Section, Cholecystectomy, Tonsillectomy, Tubal Ligation Additional Past Surgical History / Comment(s): Multiple ear surgeries (x15 left ear & 13 right ear) ended up with eardrum replacements, x2 Past Anesthesia/Blood Transfusion Reactions: No Reported Reaction Additional Past Anesthesia/Blood Transfusion Reaction / Comment(s): PT STATES DIFFICULTY WAKING UP. PTS FATHER ALSO HAS DIFFICULTY WAKING UP. Past Psychological History: ADD/ADHD, Anxiety Smoking Status: Never smoker Past Alcohol Use History: None Reported Past Drug Use History: None Reported - Past Family History Mother Family Medical History: Cancer Additional Family Medical History / Comment(s): KIDNEY CANCER- in 2012 at the age of 68yrs. Father Family Medical History: CVA/TIA, Myocardial Infarction (NH) Additional Family Medical History / Comment(s): Father had 8 CVAs and 2 MIs. His first NH was at age 69yrs and 2nd NH was at age 71yrs. He has a pacemaker. He is dyslexic. Medications and Allergies Home Medications Medication Instructions Recorded Confirmed Type Clopidogrel [Plavix] 75 mg PO DAILY #30 tab 05/13/21 05/26/21 Rx Atorvastatin [Lipitor] 40 mg PO DAILY 05/26/21 05/26/21 History Allergies Allergy/AdvReac Type Severity Reaction Status Date / Time Iodinated Contrast Media Allergy Rash/Hives Verified 05/26/21 18:37 [Iodinated Contrast Media - IV Dye] iodine Allergy Rash/Hives Verified 05/26/21 18:37 Iodine and Iodide Containing Allergy Rash/Hives Verified 05/26/21 18:37 Produc bupropion HCl AdvReac Unknown Homicidal Verified 05/26/21 18:37 [From Wellbutrin] Ideation aspirin AdvReac Nausea & Verified 05/26/21 18:37 Vomiting hydromorphone HCl AdvReac Diarrhea Verified 05/26/21 18:37 [From Dilaudid] propoxyphene napsylate AdvReac Nausea & Verified 05/26/21 18:37 [From Darvocet-N] Vomiting steroids Allergy Rash/Hives Uncoded 05/26/21 18:19 Physical Exam Vitals: Vital Signs Temp Pulse Pulse Resp BP BP BP 05/27/21 08:29 97.7 F 75 18 129/81 05/27/21 02:16 82 18 05/27/21 02:00 98.7 F 82 18 122/76 05/26/21 23:15 98.3 F 70 20 108/69 05/26/21 22:58 98.3 F 74 18 130/52 05/26/21 19:49 64 18 142/91 05/26/21 18:17 97.9 F 78 18 140/81 Pulse Ox 05/27/21 08:29 97 05/27/21 02:16 05/27/21 02:00 95 05/26/21 23:15 96 05/26/21 22:58 99 05/26/21 19:49 100 05/26/21 18:17 96 Intake and Output 05/26/21 05/27/21 05/27/21 22:59 06:59 14:59 Other: Voiding Method Toilet # Voids 2 Weight 122.47 kg 122.47 kg PHYSICAL EXAMINATION: Patient is lying in the bed comfortably, no acute distress, awake alert and oriented.. HEENT: Normocephalic. Neck is supple. Pupils reactive. Nostrils clear. Oral cavity is moist. Neck reveals no JVD, carotid bruits, or thyromegaly. CHEST EXAMINATION: Trachea is central. Symmetrical expansion. Lung estrella clear to auscultation and percussion. CARDIAC: Normal S1, S2 with no gallops. No murmurs ABDOMEN: Soft. Bowel sounds normal. No organomegaly. No abdominal bruits. Extremities: reveal no edema. No clubbing or cyanosis Neurologically awake, alert, oriented x3 .Muscle strength 4 out of 5 on left upper and lower extremity. Skin: No rash or skin lesions. Psychiatric: Coperative. Nonsuicidal Musculoskeletal: No joint swelling or deformity. Normal range of motion. Results CBC & Chem 7: 05/27/21 04:47 05/27/21 04:47 Labs: Abnormal Lab Results - Last 24 Hours (Table) 05/26/21 05/26/21 05/27/21 Range/Units 19:00 19:00 04:47 WBC 16.0 H 13.1 H (3.8-10.6) k/uL Neutrophils # 12.6 H 10.3 H (1.3-7.7) k/uL Sodium 136 L (137-145) mmol/L Glucose 105 H (74-99) mg/dL Total Bilirubin 0.1 L (0.2-1.3) mg/dL Total Protein 6.1 L (6.3-8.2) g/dL 05/27/21 Range/Units 04:47 WBC (3.8-10.6) k/uL Neutrophils # (1.3-7.7) k/uL Sodium (137-145) mmol/L Glucose 126 H (74-99) mg/dL Total Bilirubin (0.2-1.3) mg/dL Total Protein (6.3-8.2) g/dL Thrombosis Risk Factor Assmnt - DVT/VTE Prophylaxis DVT/VTE Prophylaxis: Mechanical Prophylaxis ordered - Choose All That Apply Each Factor Represents 1 point: Obesity (BMI >25) Other Risk Factors: No Other congenital or acquired thrombophilia - If yes, enter type in comment: No Thrombosis Risk Factor Assessment Total Risk Factor Score: 1 Thrombosis Risk Factor Assessment Level: Low Risk Assessment and Plan Assessment: acute recurrent left-sided weakness and numbness tingling sensation. Unlikely acute CVA. Rule out MS leukocytosis. Improving without antibiotics. Likely reactive. Recent history of left-sided weakness and paresthesias negative work-up for acute CVA on 05/13/2021 including MRI. Morbid obesity with BMI 46.3. Hypothyroidism. Patient currently not on supplementation. Cervical and low back pain. History of seizures ADD/ADHD anxiety DVT prophylaxis with SCDs plan: Patient began telemetry monitoring and continue with neurochecks. CT head is negative. TSH, B12 folate levels ordered. Patient was previously started on Brilinta which is on hold for possible consideration for LP. Patient is allergic to aspirin. Continue with statins. Neurology is on board. PT OT and FLOORING PROFESSIONAL was consulted. Continue to follow closely. Time with Patient: Greater than 30
[2021-05-28 00:50] LABS: Folate, Serum 6.6 ng/mL
[2021-05-28 08:15] VITALS: BP 138/84; PULSE 71; RESP 18; TEMP 97.8
[2021-05-28] MEDS: ACETAMINOPHEN TAB 325 MG TAB PO PRN (08:20)
[2021-05-28] MEDS: ATORVASTATIN 40 MG TAB PO SCH (08:20)
[2021-05-28] MEDS ORDERED: FOLIC ACID 1 MG TAB PO SCH (09:00)
[2021-05-28] MEDS ORDERED: CYANOCOBALAMIN 1,000 MCG/ML 1 ML VIAL IM ONE (13:00)
--- NOTE | 2021-05-28 13:08 | P.PN ---
Subjective Progress Note Date: 05/28/21 Sincerely bedside and she feels she feels slightly better today compared to yesterday. Denies of any neurological problems. She stated when she was in the MRI she did not end up having with MRI w/ and only had w/o since could not handle it. Objective - Vital Signs Vital signs: Vital Signs Temp 97.9 F 05/28/21 01:33 Pulse 72 05/28/21 01:33 Resp 16 05/28/21 01:33 BP 109/64 05/28/21 01:33 Pulse Ox 98 05/28/21 01:33 Intake & Output 05/27/21 05/28/21 05/28/21 18:59 06:59 18:59 Other: Voiding Method Toilet # Voids 5 3 # Bowel Movements 1 1 - Exam GENERAL: The patient is lying in bed and is not in acute distress. NEUROLOGICAL: Higher mental function: The patient is awake, alert, oriented to self, place and time. Patient is following commands. No aphasia and no neglect. Cranial nerves: The pupils are round, equal and reactive to light and accommodation. Visual estrella are full to confrontation throughout. Extraocular movement is intact no nystagmus is noted. Patient does not have any diplopia on examination. Facial sensation is normal to touch throughout. The facial strength is normal throughout. Hearing is normal bilaterally to hand rub. Tongue is midline and moved [id number] without any difficulty. No dysarthria is noted. Shoulder shrug is normal bilaterally. Motor: Gait is deferred. The strength over the left side is 4 and seems effort related (since with motivation it improves). Otherwise 5 over 5 throughout right. Normal tone and bulk. Cerebellum: Normal finger to nose heel to thayer bilaterally. Sensation: Sensation is decreased to touch over the entire upper and lower extremities but normal to pinprick. Normal propioception. Otherwise normal over the right. Reflexes (right/left): 2+ throughout. Plantars is downgoing over the right and mute over the left. WORK-UP: Lipid panel is a triglyceride of 177, cholesterol 171, LDL 110, HDL 26. Vitamin B 12 level is 192 which she is deficient (normal level should range from 200-944). Serum folate is 6.6 (normal range is >5.38) TSH is 1.73 which is considered within normal limits. Her HbA1c on 05/13/21: 5.8 (normal) CT of the head is reported as negative on has had computed tomography scan. There is clearing of the left maxillary sinusitis to a large extent compared to old exam. MRI the brain and the cervical spine initially was ordered with and without but she said she did not tolerate rest of exam. I did not see any old lesion that is suggestive of Multiple Sclerosis. Routine EEG on 05/27/2021: Normal. There are no focal slowing, epileptiform discharges or seizure on the EEG. 2-D echo was reported as left ventricular size is normal. Moderate concentric left ventricular hypertrophy. Ejection fraction of 55-60%. Left atrium is moderately dilated. There is no evidence of aortic regurgitation. There is a no pulmonary regurgitation present. - Labs CBC & Chem 7: 05/27/21 04:47 05/27/21 04:47 Labs: Abnormal Lab Results - Last 24 Hours (Table) 05/27/21 Range/Units 04:47 Vitamin B12 192.0 L (200.0-944.0) pg/mL Assessment and Plan Assessment: * Acute worsening over the left-sided paresthesia, weakness and slurred speech (Per ED attending on presentation had poor effort. On my examination has poor effort as well. She did have decrease sensation to touch over left upper and lower extremities but normal to pinprick. No dysarthria noticeable). Her paresthesia is due to Vitamin B12 is deficient (level 192). This is not stroke and MRI Brain and Cervical are reported as normal. I did not appreciate any old lesions suggestive of Multiple Sclerosis (MRI was performed without contrast since patient could not tolerate the second half of the cassandra t). * Reported episode of transient confusion yesterday * Similar episodes of left-sided weakness and the paresthesia and negative for stroke (05/13/2021 and 2018) * Reported history of seizure (stated has not had seizure for the past one year) * History of ADHD Plan: * Vitamin B 12 level is 192 which she is deficient (normal level should range from 200-944). Therefore, I started the patient on Vitamin B12 1000mcg IM (for today and tomorrow and after that PO). * Serum folate is 6.6 (normal range is >5.38) because low normal, I started the patient on folic acid 1mg daily * Initially she was on Plavix for secondary stroke prophylaxis and on this admission was switched to Brilinta then stopped for consideration of lumbar puncture. From neurological stand point, the patient does not need to be on antiplatelets since she does not have a stroke/TIA. She is allergic to ASA. From neurolgoical stand point, she does not need to be on statins since not stroke. * I will still recommend to puruse with lumbar puncture and this can be obtained as outpatient. If unable to be coordinated by our hospital then she needs to follow-up with her neurologist and try to pursue it. * Consulted PT, OT and STRIP DEBURRER. * On cardiac monitoring * Every 4 hours neuro checks * We'll defer the rest of the medical management to the primary team. * For DVT prophylaxis: Recommend SCD's for now. * Consider EMG with [facility]CS as outpatient. * Upon discharge the patient needs to follow-up with her neurologist (has appointment with Dr. Valdes in the next week). The plan is discussed with the nurse. There is no further neurological work-up. Zeke Daly MD Neuro-Hospitalist Time with Patient: Less than 30
--- NOTE | 2021-05-28 15:21 | ECHOF ---
Referral Reason:stroke MEASUREMENTS -------- HEIGHT: 167.6 cm WEIGHT: 122.5 kg BP: 129/81 IVSd: 1.4 cm (0.6 - 1.1) LVIDd: 5.2 cm (3.9 - 5.3) LVPWd: 1.3 cm (0.6 - 1.1) EDV(Teich): 127 ml IVSs: 1.6 cm LVIDs: 2.9 cm LVPWs: 1.9 cm %IVS Thck: 14 % ESV(Teich): 33 ml EF(Teich): 74 % %FS: 43 % SV(Teich): 94 ml RVIDd: 4.2 cm (< 3.3) IVC: 18.98 mm RA Diam: 4.4 cm LALs A4C: 6.9 cm LAAs A4C: 29.7 cm LAESV A-L A4C: 109 ml LAESV MOD A4C: 104 ml LALs A2C: 5.1 cm LAAs A2C: 18.7 cm LAESV A-L A2C: 58 ml LAESV MOD A2C: 55 ml LAESV(A-L): 92 ml LAESV Index (A-L): 40.47 ml/m Ao Diam: 2.8 cm (2.0 - 3.7) LA Diam: 4.8 cm (2.7 - 3.8) AV Cusp: 2.1 cm (1.5 - 2.6) EPSS: 0.3 cm MV E Salvador: 0.76 m/s MV DecT: 184 ms MV Dec Bandera: 4.1 m/s MV A Salvador: 0.87 m/s MV E/A Ratio: 0.88 MV PHT: 53 ms LVOT Vmax: 1.07 m/s LVOT maxP.58 mmHg AV Vmax: 1.52 m/s AV maxP.29 mmHg TR Vmax: 2.67 m/s TR maxP.48 mmHg RAP: 5.00 mmHg RVSP: 33.48 mmHg MV EF SLOPE: 112.11 mm/s (70 - 150) MV EXCURSION: 19.89 mm (> 18.000) FINDINGS -------- Sinus rhythm. This was a technically adequate study. The left ventricular size is normal. There is moderate concentric left ventricular hypertrophy. O verall left ventricular systolic function is normal with, an EF between 55 - 60 %. The diastolic fi lling pattern is normal for the age of the patient 7.35. The right ventricle is moderately enlarged. LA is moderately dilated 34-39 ml/m2 The right atrium is mildly enlarged. Interatrial and interventricular septum intact. There is no evidence of aortic regurgitation. There is no evidence of aortic stenosis. Mild mitral regurgitation is present. Mild tricuspid regurgitation present. There is mild pulmonary hypertension. The right ventricular systolic pressure, as measured by Doppler, is 33.48mmHg. There is no pulmonic regurgitation present. The aortic root size is normal. Normal inferior vena cava with normal inspiratory collapse consistent with estimated right atrial pre ssure of 5 mmHg. There is no pericardial effusion. CONCLUSIONS -------- 1. The left ventricular size is normal. 2. There is moderate concentric left ventricular hypertrophy. 3. Overall left ventricular systolic function is normal with, an EF between 55 - 60 %. 4. The diastolic filling pattern is normal for the age of the patient 7.35 5. The right ventricle is moderately enlarged. 6. LA is moderately dilated 34-39 ml/m2 7. The right atrium is mildly enlarged. 8. Mild mitral regurgitation is present. 9. Mild tricuspid regurgitation present. 10. There is mild pulmonary hypertension. 11. The right ventricular systolic pressure, as measured by Doppler, is 33.48mmHg. FLORAL ASSOCIATE: Krissy Holder RDCS
--- NOTE | 2021-05-29 09:59 | P.DS ---
Providers Date of admission: 05/26/21 20:07 Expected date of discharge: 05/28/21 Attending physician: Cheko Tran Consults: 05/26/21 20:08 Consult Physician Urgent Consulting Provider: Zeke Daly Consult Reason/Comments: acute left sided weakness, possible tia Do you want consulting provider notified?: Yes Primary care physician: Azul Lorenz Hospital Course: Final diagnosis acute recurrent left-sided weakness and numbness tingling sensation. Unlikely acute CVA. Rule out MS leukocytosis. Improving without antibiotics. Likely reactive. Recent history of left-sided weakness and paresthesias negative work-up for acute CVA on 05/13/2021 including MRI. Morbid obesity with BMI 46.3. Hypothyroidism. Patient currently not on supplementation. Cervical and low back pain. History of seizures ADD/ADHD anxiety DVT prophylaxis full code Discharge disposition Patient is being discharged in a stable condition with guarded prognosis to home. Patient will follow-up with Dr. Azul Lorenz upon discharge. Patient will also follow-up with neurology Dr. Valdes outpatient in one week. Patient is to have outpatient LP with neurology. Total time taken is greater than 35 minutes. Hospital course Patient is a 40-year-old female with a known history of CVA/TIA with resolved left-sided weakness/aphasia but states still has short-term memory loss, history of seizures, hypertension, hypothyroidism, chronic low back pain, ADD/ADHD and anxiety presents to ER with complaints of left-sided weakness. Patient states that she went to sleep at around 1:30 PM and she when she woke up she had numbness and tingling to the left side of her body. Also had left upper and lower extremity weakness. Patient was seen in the hospital with similar complaints about a month back. Patient had stroke work-up including MRI which was negative at that time. Patient was started Plavix. Otherwise patient denies any complaints of headache or dizziness lightheadedness. No fever no chills. No neck stiffness. No recent trauma to the head. No cough or sputum production. No chest pain or shortness of breath. CT head showed negative unenhanced CT head. Clearing of the maxillary sinusitis to a large extent compatible exam. Chest x-ray showed normal chest. No change. EKG showed normal sinus rhythm blood pressure was 140/81 pulse 78 respirations 18 and pulse ox 96% on room air on admission. Laboratory data showed WBC 16.0 hemoglobin 13.3 and platelets 293 sodium 136 potassium 3.7 BUN 11 creatinine 0.63 troponin less than 0.012 05/28/2021 Patient was seen and evaluated in follow-up this morning feeling much better and anticipating being discharged. Patient was closely monitored by neurology recommending outpatient follow-up with her neurologist Dr. Valdes for further testing and possible LP in the outpatient setting. Patient to continue on current medications and also recommend following up with primary care provider on discharge. Currently no reports of chest pain, worsening shortness of breath, or palpitations. Patient is afebrile. No reports of nausea or vomiting and patient is tolerating diet. On exam vital signs are stable. Cardio S1, S2 are muffled. Respiratory shows diminished breath sounds at the bases with a few scattered rhonchi noted. Abdomen is soft and nontender. Nervous system shows no focal deficits. Please refer to medication reconciliation sheet for a list of medications. Patient Condition at Discharge: Stable Plan - Discharge Summary Discharge Rx Participant: No New Discharge Prescriptions: New Cyanocobalamin [Vitamin B-12] 1,000 mcg PO DAILY 30 Days #60 tab Folic Acid 1 mg PO DAILY 30 Days #30 tab Acetaminophen Tab [Tylenol] 650 mg PO Q6HR PRN #30 tab PRN Reason: Fever And/ Or Pain Continue Clopidogrel [Plavix] 75 mg PO DAILY #30 tab Atorvastatin [Lipitor] 40 mg PO DAILY Discharge Medication List Clopidogrel [Plavix] 75 mg PO DAILY #30 tab 05/13/21 [Rx] Atorvastatin [Lipitor] 40 mg PO DAILY 05/26/21 [History] Acetaminophen Tab [Tylenol] 650 mg PO Q6HR PRN #30 tab 05/28/21 [Rx] Cyanocobalamin [Vitamin B-12] 1,000 mcg PO DAILY 30 Days #60 tab 05/28/21 [Rx] Folic Acid 1 mg PO DAILY 30 Days #30 tab 05/28/21 [Rx] Follow up Appointment(s)/Referral(s): Tyrese Valdes MD [REFERRING] - 06/03/21 2:00 pm (Keep appoinment previously made Jun.03 @2pm.) Azul Lorenz, [Primary Care Provider] - 1-2 days Activity/Diet/Wound Care/Special Instructions: Activity Limited until follow-up follow up with primary care provider on discharge Follow-up with neurology Dr. Valdes for possible outpatient LP Continue current diet Discharge Disposition: HOME SELF-CARE
[2021-05-30] MEDS ORDERED: CYANOCOBALAMIN 500 MCG TAB PO SCH (09:00)
== END 2021-05-28 13:29 | disposition home or self-care (01) ==
LOC: EC 18:07 → 6NMEDSUR 20:07
PROVIDERS: ADMIT Hospitalist; ATTEND Hospitalist
DX: R53.1 Weakness (principal); R20.0 Anesthesia of skin; R20.2 Paresthesia of skin; D72.829 Elevated white blood cell count, unspecified; E66.01 Morbid (severe) obesity due to excess calories; Z68.42 Body mass index [BMI] 45.0-49.9, adult; E03.9 Hypothyroidism, unspecified; G89.29 Other chronic pain; M54.5 Low back pain; M54.2 Cervicalgia; F90.9 Attention-deficit hyperactivity disorder, unspecified type; F41.9 Anxiety disorder, unspecified; R47.81 Slurred speech; R51.9 Headache, unspecified; R19.7 Diarrhea, unspecified; R41.0 Disorientation, unspecified; H53.2 Diplopia; I10 Essential (primary) hypertension; J45.909 Unspecified asthma, uncomplicated; I69.311 Memory deficit following cerebral infarction; E53.8 Deficiency of other specified B group vitamins; Z91.048 Other nonmedicinal substance allergy status; Z86.69 Personal history of other diseases of the nervous system and sense organs; Z86.32 Personal history of gestational diabetes; Z86.14 Personal history of Methicillin resistant Staphylococcus aureus infection; Z87.442 Personal history of urinary calculi; Z90.49 Acquired absence of other specified parts of digestive tract; Z79.02 Long term (current) use of antithrombotics/antiplatelets; Z79.899 Other long term (current) drug therapy; Z88.6 Allergy status to analgesic agent; Z91.041 Radiographic dye allergy status; Z88.5 Allergy status to narcotic agent; Z88.8 Allergy status to other drugs, medicaments and biological substances; Z82.0 Family history of epilepsy and other diseases of the nervous system; Z80.51 Family history of malignant neoplasm of kidney; Z82.49 Family history of ischemic heart disease and other diseases of the circulatory system; Z82.3 Family history of stroke; G40.909 Epilepsy, unspecified, not intractable, without status epilepticus
CPT/HCPCS: 96372; 99285; 36415; 95816; 93005; 93306; 97162; 97165; 92523; 83921; 80053; 80048; 84443; 82607; 82746; 84484; 85025 ×2; 85610; 85730; 71046; 70450; 70551; 72141; G0378 ×3; J3420

== ENCOUNTER 2021-07-30 22:39 | Emergency (ER) | payer MEDICARE, OTHER ==
[2021-07-31] MEDS ORDERED: SODIUM CHLORIDE 0.9% 1,000 ML IV STA (00:41)
[2021-07-31] MEDS ORDERED: MORPHINE SULFATE 4 MG/ML SYRINGE IV STA (00:41)
--- NOTE | 2021-07-31 00:42 | ED ---
Abdominal Pain HPI - General Chief Complaint: Back Pain/Injury Stated Complaint: Bilateral kidney pain Time Seen by Provider: 07/31/21 00:23 Source: patient, RN notes reviewed, old records reviewed Mode of arrival: ambulatory Limitations: no limitations - History of Present Illness Initial Comments: This is a 40-year-old female to the emergency room today. Patient presents today for evaluation of abdominal pain. Back pain flank pain dysuria dark urine and what she feels like maybe blood in her stools. No trauma no fevers. Mild cough no congestion of travel show sick contacts. Patient has history of kidney stones this feels maybe like kidney stones but not exactly the same per the patient. MD Complaint: abdominal pain, flank pain -: days(s) Location: diffuse, L flank, R flank Radiation: suprapubic Migration to: suprapubic Severity: severe Severity scale (1-10): 8 Quality: stabbing Consistency: intermittent Improves With: nothing Worsens With: nothing Context: sick contacts Associated Symptoms: nausea Treatments Prior to Arrival: other (none) - Related Data Home Medications Medication Instructions Recorded Confirmed Atorvastatin [Lipitor] 40 mg PO DAILY 05/26/21 05/26/21 Previous Rx's Medication Instructions Recorded Clopidogrel [Plavix] 75 mg PO DAILY #30 tab 05/13/21 Acetaminophen Tab [Tylenol] 650 mg PO Q6HR PRN #30 tab 05/28/21 Cyanocobalamin [Vitamin B-12] 1,000 mcg PO DAILY 30 Days #60 tab 05/28/21 Folic Acid 1 mg PO DAILY 30 Days #30 tab 05/28/21 Allergies Allergy/AdvReac Type Severity Reaction Status Date / Time Iodinated Contrast Media Allergy Rash/Hives Verified 07/30/21 23:14 [Iodinated Contrast Media - IV Dye] iodine Allergy Rash/Hives Verified 07/30/21 23:14 Iodine and Iodide Containing Allergy Rash/Hives Verified 07/30/21 23:14 Produc bupropion HCl AdvReac Unknown Homicidal Verified 07/30/21 23:14 [From Wellbutrin] Ideation aspirin AdvReac Nausea & Verified 07/30/21 23:14 Vomiting hydromorphone HCl AdvReac Diarrhea Verified 07/30/21 23:14 [From Dilaudid] propoxyphene napsylate AdvReac Nausea & Verified 07/30/21 23:14 [From Darvocet-N] Vomiting steroids Allergy Rash/Hives Uncoded 07/30/21 23:14 Review of Systems ROS Statement: Those systems with pertinent positive or pertinent negative responses have been documented in the HPI. ROS Other: All systems not noted in ROS Statement are negative. Past Medical History Past Medical History: Asthma, CVA/TIA, Hypertension, Seizure Disorder, Thyroid Disorder Additional Past Medical History / Comment(s): 11/2017 TIA or CVA (pt unsure) with resolved L sided weakness/aphasia but states still has short term memory loss, last seizure in 2016, frequent kidney infections, kidney stones she passed on he r own, chronic cervical and low back pain, past fractured coccyx, gestational diabetes. History of Any Multi-Drug Resistant Organisms: MRSA Date of last positivie culture/infection: 1999,2013, 2016 MDRO Source:: right leg Past Surgical History: Appendectomy, Section, Cholecystectomy, Tonsil lectomy, Tubal Ligation Additional Past Surgical History / Comment(s): Multiple ear surgeries (x15 left ear & 13 right ear) ended up with eardrum replacements, x2 Past Anesthesia/Blood Transfusion Reactions: No Reported Reaction Additional Past Anesthesia/Blood Transfusion Reaction / Comment(s): PT STATES DIFFICULTY WAKING UP. PTS FATHER ALSO HAS DIFFICULTY WAKING UP. Past Psychological History: ADD/ADHD, Anxiety Smoking Status: Never smoker Past Alcohol Use History: None Reported Past Drug Use History: None Reported - Past Family History Mother Family Medical History: Cancer Additional Family Medical History / Comment(s): KIDNEY CANCER- in 2012 at the age of 68yrs. Father Family Medical History: CVA/TIA, Myocardial Infarction (MO) Additional Family Medical History / Comment(s): Father had 8 CVAs and 2 MIs. His first MO was at age 69yrs and 2nd MO was at age 71yrs. He has a pacemaker. He is dyslexic. General Exam Limitations: no limitations General appearance: alert, in no apparent distress Head exam: Present: atraumatic, normocephalic, normal inspection Eye exam: Present: normal appearance, PERRL, EOMI. Absent: scleral icterus, co njunctival injection, periorbital swelling ENT exam: Present: normal exam, mucous membranes moist Neck exam: Present: normal inspection. Absent: tenderness, meningismus, lymphadenopathy Respiratory exam: Present: normal lung sounds bilaterally. Absent: respiratory distress, wheezes, rales, rhonchi, stridor Cardiovascular Exam: Present: regular rate, normal rhythm, normal heart sounds. Absent: systolic murmur, diastolic murmur, rubs, gallop, clicks GI/Abdominal exam: Present: soft, normal bowel sounds. Absent: distended, tenderness, guarding, rebound, rigid Extremities exam: Present: normal inspection, full ROM, normal capillary refill. Absent: tenderness, pedal edema, joint swelling, calf tenderness Back exam: Present: normal inspection Neurological exam: Present: alert, oriented X3, CN II-XII intact Psychiatric exam: Present: normal affect, normal mood Skin exam: Present: warm, dry, intact, normal color. Absent: rash Course Vital Signs 07/30/21 07/31/21 23:10 02:47 Temperature 98.0 F Pulse Rate 70 65 Respiratory 16 18 Rate Blood Pressure 127/72 128/73 O2 Sat by Pulse 99 100 Oximetry - Reevaluation(s) Reevaluation #1: 07/31/21 03:13 Medical record is reviewed Reevaluation #2: 07/31/21 03:13 Patient has adequate pain control Reevaluation #3: 07/31/21 03:13 Patient informed results and questions answered Medical Decision Making - Medical Decision Making 40 female to the emergency room today for evaluation. Patient presents today for evaluation regards to not feeling well. Patient's abdominal pain is i mproved, feels well here in the ER and can be discharged home - Lab Data Result diagrams: 07/31/21 01:59 07/31/21 01:59 Lab Results 07/31/21 07/31/21 07/31/21 Range/Units 01:59 01:59 01:59 WBC 14.2 H (3.8-10.6) k/uL RBC 4.64 (3.80-5.40) m/uL Hgb 13.0 (11.4-16.0) gm/dL Hct 39.7 (34.0-46.0) % MCV 85.5 (80.0-100.0) fL MCH 28.1 (25.0-35.0) pg MCHC 32.9 (31.0-37.0) g/dL RDW 13.6 (11.5-15.5) % Plt Count 265 (150-450) k/uL MPV 8.0 Neutrophils % 77 % Lymphocytes % 15 % Monocytes % 4 % Eosinophils % 3 % Basophils % 0 % Neutrophils # 10.9 H (1.3-7.7) k/uL Lymphocytes # 2.1 (1.0-4.8) k/uL Monocytes # 0.6 (0-1.0) k/uL Eosinophils # 0.4 (0-0.7) k/uL Basophils # 0.1 (0-0.2) k/uL Sodium 135 L (137-145) mmol/L Potassium 4.0 (3.5-5.1) mmol/L Chloride 103 (98-107) mmol/L Carbon Dioxide 28 (22-30) mmol/L Anion Gap 4 mmol/L BUN 12 (7-17) mg/dL Creatinine 0.66 (0.52-1.04) mg/dL Est GFR (CKD-EPI)AfAm >90 (>60 ml/min/1.73 sqM) Est GFR (CKD-EPI)NonAf >90 (>60 ml/min/1.73 sqM) Glucose 119 H (74-99) mg/dL Calcium 8.6 (8.4-10.2) mg/dL Total Bilirubin 0.2 (0.2-1.3) mg/dL AST 14 (14-36) U/L ALT 16 (4-34) U/L Alkaline Phosphatase 58 (38-126) U/L Total Protein 6.2 L (6.3-8.2) g/dL Albumin 3.3 L (3.5-5.0) g/dL Amylase <30 L (30-110) U/L Lipase 60 (23-300) U/L Urine Color Yellow Urine Appearance Cloudy H (Clear) Urine pH 6.0 (5.0-8.0) Ur Specific [place] 1.032 (1.001-1.035) Urine Protein Trace H (Negative) Urine Glucose (UA) Negative (Negative) Urine Ketones Negative (Negative) Urine Blood Negative (Negative) Urine Nitrite Negative (Negative) Urine Bilirubin Negative (Negative) Urine Urobilinogen <2.0 (<2.0) mg/dL Ur Leukocyte Esterase Small H (Negative) Urine RBC 3 (0-5) /hpf Urine WBC 12 H (0-5) /hpf Ur Squamous Epith Cells 5 H (0-4) /hpf Urine Bacteria Rare H (None) /hpf Urine Mucus Many H (None) /hpf - Radiology Data Radiology results: report reviewed (CT head and pelvis negative for acute disease), image reviewed Disposition Clinical Impression: Mid back pain, Bilateral flank pain Disposition: HOME SELF-CARE Condition: Good Instructions (If sedation given, give patient instructions): Acute Low Back Pain (ED) Is patient prescribed a controlled substance at d/c from ED?: No Referrals: Azul Lorenz DO [Primary Care Provider] - 1-2 days
[2021-07-31 02:18] LABS: Basophils # (A) 0.1 k/uL (0-0.2); Basophils % (A) 0 %; Eosinophils # (A) 0.4 k/uL (0-0.7); Eosinophils % (A) 3 %; HCT 39.7 % (34.0-46.0); Lymphocytes # (A) 2.1 k/uL (1.0-4.8); Lymphocytes % (A) 15 %; MCH 28.1 pg (25.0-35.0); MCHC 32.9 g/dL (31.0-37.0); MCV 85.5 fL (80.0-100.0); Monocytes # (A) 0.6 k/uL (0-1.0); Monocytes % (A) 4 %; Neutrophils # (A) 10.9 k/uL (1.3-7.7); Neutrophils % (A) 77 %; Platelet Count 265 k/uL (150-450); RBC 4.64 m/uL (3.80-5.40); RDW 13.6 % (11.5-15.5); WBC 14.2 k/uL (3.8-10.6)
[2021-07-31 02:23] LABS: ALT 16 U/L (4-34); AST 14 U/L (14-36); African American GFR (CKD) >90 (>60 ml/min/1.73 sqM); Albumin 3.3 g/dL (3.5-5.0); Alkaline Phosphatase 58 U/L (38-126); Amylase <30 U/L (30-110); Anion Gap 4 mmol/L; Appearance,Urine Cloudy (Clear); Bacteria,Urine Rare /hpf; Bilirubin,Urine Negative (Negative); Blood Urea Nitrogen 12 mg/dL (7-17); Blood,Urine Negative (Negative); Calcium 8.6 mg/dL (8.4-10.2); Carbon Dioxide 28 mmol/L (22-30); Chloride 103 mmol/L (98-107); Color,Urine Yellow; Glucose 119 mg/dL (74-99); Glucose,Urine (UA) Negative (Negative); Ketones,Urine Negative (Negative); Leukocyte Esterase,Urine Small (Negative); Lipase 60 U/L (23-300); Mucus,Urine Many /hpf; Nitrite,Urine Negative (Negative); Non-African American GFR(CKD) >90 (>60 ml/min/1.73 sqM); Protein,Urine Trace (Negative); RBC,Urine 3 /hpf (0-5); Sodium 135 mmol/L (137-145); Specific Gravity,Urine 1.032 (1.001-1.035); Squamous Epithelial Cell,Urine 5 /hpf (0-4); Total Bilirubin 0.2 mg/dL (0.2-1.3); Total Protein 6.2 g/dL (6.3-8.2); Urobilinogen,Urine <2.0 mg/dL (<2.0); WBC,Urine 12 /hpf (0-5)
--- NOTE | 2021-07-31 02:40 | CT ---
EXAMINATION TYPE: CT abdomen pelvis wo con DATE OF EXAM: 07/31/2021 COMPARISON: 02/16/2019 HISTORY: bilateral flank pain CT DLP: 1446.9 mGycm Automated exposure control for dose reduction was used. The lung bases are clear. There is no pleural effusion. Heart size is normal. There is no pericardial effusion. Liver spleen stomach pancreas appear intact. Bile ducts are not dilated. There are clips from cholecy stectomy. There is no adrenal mass. Kidneys show normal size and contour. There is no hydronephrosis. Ureters a re not dilated. There is no retroperitoneal adenopathy. The bladder distends smoothly. Uterus is anteverted. There is no inguinal hernia. There is 4.5 cm cys t on the left ovary. There is 2 cm cyst right ovary. There is no free fluid in the pelvis. Appendix a ppears normal. There is no mesenteric edema. There is no ascites or free air. There is no bowel obstruction. The lum bar vertebra have normal alignment. Disc spaces are normal. There is no compression fracture. Bony pe lvis is intact. The hip joints are intact. IMPRESSION: Bilateral ovarian cysts. Normal appendix. There is clearing of the large cyst on the right ovary comp ared to old exam. Left ovarian cyst is new compared to old exam. No renal stone or obstruction.
[2021-07-31 02:47] VITALS: RESP 18
[2021-07-31] MEDS ORDERED: cefTRIAXone IN SWFI 1,000 MG/10 ML SYRINGE IVP STA (02:54)
[2021-07-31 04:15] VITALS: BP 122/79; PULSE 67; TEMP 98.4
== END 2021-07-31 04:14 | disposition home or self-care (01) ==
LOC: EC 22:39
DX: R10.84 Generalized abdominal pain (principal); M54.9 Dorsalgia, unspecified; J45.909 Unspecified asthma, uncomplicated; I10 Essential (primary) hypertension; E07.9 Disorder of thyroid, unspecified; F41.9 Anxiety disorder, unspecified; F90.9 Attention-deficit hyperactivity disorder, unspecified type; Z87.442 Personal history of urinary calculi; Z79.02 Long term (current) use of antithrombotics/antiplatelets; Z86.73 Personal history of transient ischemic attack (TIA), and cerebral infarction without residual deficits; Z90.49 Acquired absence of other specified parts of digestive tract; Z98.51 Tubal ligation status; Z88.6 Allergy status to analgesic agent; Z88.5 Allergy status to narcotic agent
CPT/HCPCS: 99284; 96374; 96361; 36415; 80053; 82150; 83690; 85025; 81001; 87086; 74176; J2270

== ENCOUNTER 2021-08-08 21:09 | Emergency (ER) | payer MEDICARE, OTHER ==
[2021-08-08 21:43] VITALS: BP 127/84; PULSE 71; RESP 18; TEMP 98.3
[2021-08-08] MEDS ORDERED: MORPHINE SULFATE 4 MG/ML SYRINGE IM STA (22:05)
[2021-08-08] MEDS ORDERED: ORPHENADRINE 30 MG/ML 2 ML VIAL IM STA (22:05)
[2021-08-08] MEDS ORDERED: ACET/COD 300 MG/30 MG STARTER PACK 6 TAB BTL PO STA (22:19)
--- NOTE | 2021-08-08 22:19 | ED ---
Back Pain HPI - General Chief Complaint: Back Pain/Injury Stated Complaint: Back Pain Time Seen by Provider: 08/08/21 21:48 Source: patient, RN notes reviewed, old records reviewed Mode of arrival: ambulatory Limitations: no limitations - History of Present Illness Initial Comments: Patient is a 40-year-old female presenting to the emergency Department with complaints of back pain for the last 3 days. She describes in her lower back across both sides. She does have history of chronic back pain. She tried take some ibuprofen at home but is not helping. She denies any falls or trauma, no fevers or chills. She denies any dysuria or radiation of the pain. States it feels like normal flareup of her chronic back pain. She has been waiting to get into see an orthopedic back specialist. She has an appointment in August with Dr. Mariscal. She denies any numbness and tingling into her lower extremities, no bowel or bladder incontinence, no saddle paresthesia. She has no further complaints today. Her vitals are stable upon arrival. - Related Data Home Medications Medication Instructions Recorded Confirmed Atorvastatin [Lipitor] 40 mg PO DAILY 05/26/21 05/26/21 Previous Rx's Medication Instructions Recorded Clopidogrel [Plavix] 75 mg PO DAILY #30 tab 05/13/21 Acetaminophen Tab [Tylenol] 650 mg PO Q6HR PRN #30 tab 05/28/21 Cyanocobalamin [Vitamin B-12] 1,000 mcg PO DAILY 30 Days #60 tab 05/28/21 Folic Acid 1 mg PO DAILY 30 Days #30 tab 05/28/21 Cyclobenzaprine [Flexeril] 10 mg PO TID PRN #15 tab 08/08/21 Allergies Allergy/AdvReac Type Severity Reaction Status Date / Time Iodinated Contrast Media Allergy Rash/Hives Verified 08/08/21 21:43 [Iodinated Contrast Media - IV Dye] iodine Allergy Rash/Hives Verified 08/08/21 21:43 Iodine and Iodide Containing Allergy Rash/Hives Verified 08/08/21 21:43 Produc bupropion HCl AdvReac Unknown Homicidal Verified 08/08/21 21:43 [From Wellbutrin] Ideation aspirin AdvReac Nausea & Verified 08/08/21 21:43 Vomiting hydromorphone HCl AdvReac Diarrhea Verified 08/08/21 21:43 [From Dilaudid] propoxyphene napsylate AdvReac Nausea & Verified 08/08/21 21:43 [From Darvocet-N] Vomiting steroids Allergy Rash/Hives Uncoded 07/30/21 23:14 Review of Systems ROS Statement: Those systems with pertinent positive or pertinent negative responses have been documented in the HPI. ROS Other: All systems not noted in ROS Statement are negative. Past Medical History Past Medical History: Asthma, CVA/TIA, Hypertension, Seizure Disorder, Thyroid Disorder Additional Past Medical History / Comment(s): 11/2017 TIA or CVA (pt unsure) with resolved L sided weakness/aphasia but states still has short term memory loss, last seizure in 2016, frequent kidney infections, kidney stones she passed on her own, chronic cervical and low back pain, past fractured coccyx, gestational diabetes. History of Any Multi-Drug Resistant Organisms: MRSA Date of last positivie culture/infection: 1999,2013, 2016 MDRO Source:: right leg Past Surgical History: Appendectomy, Section, Cholecystectomy, Tonsillectomy, Tubal Ligation Additional Past Surgical History / Comment(s): Multiple ear surgeries (x15 left ear & 13 right ear) ended up with eardrum replacements, x2 Past Anesthesia/Blood Transfusion Reactions: No Reported Reaction Additional Past Anesthesia/Blood Transfusion Reaction / Comment(s): PT STATES DIFFICULTY WAKING UP. PTS FATHER ALSO HAS DIFFICULTY WAKING UP. Past Psychological History: ADD/ADHD, Anxiety Smoking Status: Never smoker Past Alcohol Use History: None Reported Past Drug Use History: None Reported - Past Family History Mother Family Medical History: Cancer Additional Family Medical History / Comment(s): KIDNEY CANCER- in 2012 at the age of 68yrs. Father Family Medical History: CVA/TIA, Myocardial Infarction ([place]) Additional Family Medical History / Comment(s): Father had 8 CVAs and 2 MIs. His first [place] was at age 69yrs and 2nd [place] was at age 71yrs. He has a pacemaker. He is dyslexic. General Exam - General Exam Comments Initial Comments: GENERAL: Patient is well-developed and well-nourished. Patient is nontoxic and in no acute distress. HEAD: Atraumatic, normocephalic. EYES: Pupils equal round and reactive to light, extraocular movements intact, sclera anicteric, conjunctiva are normal. Eyelids were unremarkable. LUNGS: Unlabored respirations. Breath sounds clear to auscultation bilaterally and equal. No wheezes rales or rhonchi. HEART: Regular rate and rhythm without murmurs, rubs or gallops. ABDOMEN: Soft, nontender, normoactive bowel sounds. No guarding, no rebound. No masses appreciated. MUSCULOSKELETAL: Normal extremities with adequate strength and normal range of motion, no pitting or edema. No clubbing or cyanosis. He was palpation along the lumbar spine and lumbar paraspinals. NEUROLOGICAL: Patient is alert and oriented x 3. Motor and sensory are also intact. Cranial nerves II through XII grossly intact. Symmetrical smile. Normal speech, normal gait. PSYCH: Normal mood, normal affect. SKIN: Warm, Dry, normal turgor, no rashes or lesions noted. Limitations: no limitations Course Vital Signs 08/08/21 21:40 Temperature 98.3 F Pulse Rate 71 Respiratory 18 Rate Blood Pressure 127/84 O2 Sat by Pulse 99 Oximetry Medical Decision Making - Medical Decision Making Patient is a 40-year-old female with history of chronic low back pain presenting with an acute on chronic back pain over the past 3 days. No falls or trauma. No alarming symptoms and exam, no saddle paresthesias or bowel or bladder incontinence. Her vitals are stable. Patient will be given pain control and Norflex in the ER. I will send her home with a course of muscle relaxers for at home. She can follow up with her primary care if symptoms persist. Return parameters were discussed with her and she verbalized understanding. Disposition Clinical Impression: Low back pain Disposition: HOME SELF-CARE Condition: Stable Instructions (If sedation given, give patient instructions): Acute Low Back Pain (ED) Additional Instructions: Please return to the Emergency Department if symptoms worsen or any other concerns. Trial of muscle relaxer at home. Recommend applying heat and/or ice to the area, may take Tylenol or ibuprofen for any discomfort. May take Tylenol threes for more severe pain. Follow-up with your primary care or back specialist. Prescriptions: Cyclobenzaprine [Flexeril] 10 mg PO TID PRN #15 tab PRN Reason: Muscle Spasm Is patient prescribed a controlled substance at d/c from ED?: No Referrals: Azul Lorenz DO [Primary Care Provider] - 1-2 days Time of Disposition: 22:19
== END 2021-08-08 22:25 | disposition home or self-care (01) ==
LOC: EC 21:09
DX: M54.5 Low back pain (principal); G89.29 Other chronic pain; I10 Essential (primary) hypertension; J45.909 Unspecified asthma, uncomplicated; E07.9 Disorder of thyroid, unspecified; F90.9 Attention-deficit hyperactivity disorder, unspecified type; F41.9 Anxiety disorder, unspecified; Z88.6 Allergy status to analgesic agent; Z88.5 Allergy status to narcotic agent; Z86.73 Personal history of transient ischemic attack (TIA), and cerebral infarction without residual deficits; Z87.442 Personal history of urinary calculi; Z90.49 Acquired absence of other specified parts of digestive tract; Z90.89 Acquired absence of other organs; Z98.51 Tubal ligation status; Z79.02 Long term (current) use of antithrombotics/antiplatelets
CPT/HCPCS: 99283; 96372 ×2; J2270; J2360

== ENCOUNTER 2021-09-03 09:03 | Emergency (ER) | payer MEDICARE, OTHER ==
[2021-09-03 09:09] VITALS: BP 133/98; PULSE 78; RESP 18; TEMP 98.8
[2021-09-03] MEDS ORDERED: SODIUM CHLORIDE 0.9% 1,000 ML IV STA (09:32)
[2021-09-03 09:50] LABS: Basophils % (A) 0 %; Eosinophils # (A) 0.3 k/uL (0-0.7); Eosinophils % (A) 3 %; HCT 42.8 % (34.0-46.0); HGB 14.1 gm/dL (11.4-16.0); Lymphocytes # (A) 1.6 k/uL (1.0-4.8); Lymphocytes % (A) 13 %; MCH 28.8 pg (25.0-35.0); MCV 87.2 fL (80.0-100.0); Mean Platelet Volume 7.4; Monocytes # (A) 0.5 k/uL (0-1.0); Monocytes % (A) 4 %; Neutrophils # (A) 9.8 k/uL (1.3-7.7); Neutrophils % (A) 79 %; Platelet Count 293 k/uL (150-450); RBC 4.91 m/uL (3.80-5.40); RDW 13.5 % (11.5-15.5); WBC 12.4 k/uL (3.8-10.6)
[2021-09-03 10:06] LABS: ALT 25 U/L (4-34); AST 26 U/L (14-36); African American GFR (CKD) >90 (>60 ml/min/1.73 sqM); Albumin 3.3 g/dL (3.5-5.0); Alkaline Phosphatase 63 U/L (38-126); Anion Gap 4 mmol/L; Blood Urea Nitrogen 10 mg/dL (7-17); Calcium 8.3 mg/dL (8.4-10.2); Carbon Dioxide 27 mmol/L (22-30); Chloride 103 mmol/L (98-107); Glucose 108 mg/dL (74-99); Non-African American GFR(CKD) >90 (>60 ml/min/1.73 sqM); Sodium 134 mmol/L (137-145); Total Bilirubin 0.6 mg/dL (0.2-1.3); Total Protein 6.2 g/dL (6.3-8.2)
[2021-09-03] MEDS ORDERED: HYDROcodone/APAP 10-325MG 1 EACH TAB PO ONE (10:17)
--- NOTE | 2021-09-03 10:28 | XR ---
EXAMINATION TYPE: XR KUB DATE OF EXAM: 09/03/2021 COMPARISON: NONE HISTORY: Pain TECHNIQUE: Single supine KUB image of the abdomen is obtained FINDINGS: Small bowel demonstrates no evidence for dilatation or air fluid levels. Gas and fecal material is seen in non-distended colon. No convincing evidence for pneumoperitoneum. No unusual calcifications. The lung bases are clear. The osseous structures are intact. IMPRESSION: 1. Overall nonobstructive bowel gas pattern.
[2021-09-03 11:26] LABS: Appearance,Urine Clear (Clear); Bilirubin,Urine Negative (Negative); Blood,Urine Negative (Negative); Color,Urine Yellow; Glucose,Urine (UA) Negative (Negative); Ketones,Urine Negative (Negative); Leukocyte Esterase,Urine Trace (Negative); Mucus,Urine Rare /hpf; Nitrite,Urine Negative (Negative); PH, Urine 6.5 (5.0-8.0); Protein,Urine Negative (Negative); RBC,Urine <1 /hpf (0-5); Specific Gravity,Urine 1.014 (1.001-1.035); Squamous Epithelial Cell,Urine 2 /hpf (0-4); Urobilinogen,Urine <2.0 mg/dL (<2.0); WBC,Urine 2 /hpf (0-5)
--- NOTE | 2021-09-03 13:43 | CT ---
EXAMINATION TYPE: CT abdomen pelvis wo con DATE OF EXAM: 09/03/2021 COMPARISON: CT 07/31/2021 HISTORY: Right flank pain CT DLP: 1279.4 mGycm Automated exposure control for dose reduction was used. TECHNIQUE: Helical acquisition of images from the lung bases through the pelvis. FINDINGS: Umbilical hernia contains fat. LUNG BASES: No significant abnormality is appreciated. AORTA: No significant abnormality is appreciataed. LIVER/GB: Patient is post cholecystectomy. Liver is stable. PANCREAS: No significant abnormality is seen. SPLEEN: Spleen is enlarged as on prior. ADRENALS: No significant abnormality is seen. KIDNEYS: Stable, no hydronephrosis or renal stone, no ureteral calcification REPRODUCTIVE ORGANS: Large ovarian cyst on the left has resolved, uterus is stable, there is a right ovarian cyst similar to prior measuring approximately 3.4 cm URINARY BLADDER: No significant abnormality is seen. BOWEL: Retained fecal debris is present, correlate for possible fecal stasis, no evident diverticuli tis. The appendix is normal. FREE AIR: No Free Air is visible. ASCITES: None visible. PELVIC ADENOPATHY: None visualized. RETROPERITONEAL ADENOPATHY: No Retroperitoneal Adenopathy visible. OSSEOUS STRUCTURES: No significant interval change is seen. IMPRESSION: SPLENOMEGALY, INTERVAL RESOLUTION OF LEFT ADNEXAL CYST. POSTOP CHANGES. NONCONTRAST EXAM.
--- NOTE | 2021-09-03 13:57 | ED ---
Abdominal Pain HPI - General Chief Complaint: Abdominal Pain Stated Complaint: Back Pain Time Seen by Provider: 09/03/21 09:18 Source: patient, RN notes reviewed Mode of arrival: ambulatory Limitations: no limitations - History of Present Illness Initial Comments: Patient is a 40-year-old female that presents to the emergency department complaining of right flank pain. She notes pain radiates to her right lower abdomen. She'll she does have a history of kidney stones. She notes this feels similar. She notes that this all happened within the last few days. She denied any other issues or complaints. She was WELL-appearing. She denied chest pain shortness of breath headache nausea vomiting diarrhea constipation fever fatigue chills. - Related Data Home Medications Medication Instructions Recorded Confirmed Ibuprofen [Motrin Ib] 200 mg PO Q8H PRN 09/03/21 09/03/21 Allergies Allergy/AdvReac Type Severity Reaction Status Date / Time Iodinated Contrast Media Allergy Rash/Hives Verified 09/03/21 10:12 [Iodinated Contrast Media - IV Dye] iodine Allergy Rash/Hives Verified 09/03/21 10:12 Iodine and Iodide Containing Allergy Rash/Hives Verified 09/03/21 10:12 Produc bupropion HCl AdvReac Unknown Homicidal Verified 09/03/21 10:12 [From Wellbutrin] Ideation aspirin AdvReac Nausea & Verified 09/03/21 10:12 Vomiting hydromorphone HCl AdvReac Diarrhea Verified 09/03/21 10:12 [From Dilaudid] propoxyphene napsylate AdvReac Nausea & Verified 09/03/21 10:12 [From Darvocet-N] Vomiting steroids Allergy Rash/Hives Uncoded 07/30/21 23:14 Review of Systems ROS Statement: Those systems with pertinent positive or pertinent negative responses have been documented in the HPI. ROS Other: All systems not noted in ROS Statement are negative. Past Medical History Past Medical History: Asthma, CVA/TIA, Hypertension, Seizure Disorder, Thyroid Disorder Additional Past Medical History / Comment(s): 11/2017 TIA or CVA (pt unsure) with resolved L sided weakness/aphasia but states still has short term memory loss, last seizure in 2017, frequent kidney infections, kidney stones she passed on her own, chronic cervical and low back pain, past fractured coccyx, gestational diabetes. History of Any Multi-Drug Resistant Organisms: MRSA Date of last positivie culture/infection: 1999,2013, 2016 MDRO Source:: right leg Past Surgical History: Appendectomy, Section, Cholecystectomy, Tonsillectomy, Tubal Ligation Additional Past Surgical History / Comment(s): Multiple ear surgeries (x15 left ear & 13 right ear) ended up with eardrum replacements, x2 Past Anesthesia/Blood Transfusion Reactions: No Reported Reaction Additional Past Anesthesia/Blood Transfusion Reaction / Comment(s): PT STATES D IFFICULTY WAKING UP. PTS FATHER ALSO HAS DIFFICULTY WAKING UP. Past Psychological History: ADD/ADHD, Anxiety Smoking Status: Never smoker Past Alcohol Use History: None Reported Past Drug Use History: None Reported - Past Family History Mother Family Medical History: Cancer Additional Family Medical History / Comment(s): KIDNEY CANCER- in 2012 at the age of 68yrs. Father Family Medical History: CVA/TIA, Myocardial Infarction ([place]) Additional Family Medical History / Comment(s): Father had 8 CVAs and 2 MIs. His first [place] was at age 69yrs and 2nd [place] was at age 71yrs. He has a pacemaker. He is dyslexic. General Exam Limitations: no limitations General appearance: alert, in no apparent distress, obese Head exam: Present: atraumatic, normocephalic, normal inspection Eye exam: Present: normal appearance, PERRL, EOMI. Absent: scleral icterus, conjunctival injection, periorbital swelling ENT exam: Present: normal exam, mucous membranes moist Neck exam: Present: normal inspection Respiratory exam: Present: normal lung sounds bilaterally. Absent: respiratory distress, wheezes, rales, rhonchi, stridor Cardiovascular Exam: Present: regular rate, normal rhythm, normal heart sounds. Absent: systolic murmur, diastolic murmur, rubs, gallop, clicks GI/Abdominal exam: Present: soft, normal bowel sounds. Absent: distended, tenderness, guarding, rebound, rigid Extremities exam: Present: normal inspection, full ROM, normal capillary refill. Absent: tenderness, pedal edema, joint swelling, calf tenderness Back exam: Present: normal inspection, CVA tenderness (R) Neurological exam: Present: alert, oriented X3 Psychiatric exam: Present: normal affect, normal mood Skin exam: Present: warm, dry, intact, normal color. Absent: rash Course Vital Signs 09/03/21 09:07 Temperature 98.8 F Pulse Rate 78 Respiratory 18 Rate Blood Pressure 133/98 O2 Sat by Pulse 97 Oximetry Medical Decision Making - Medical Decision Making 40-year-old female with right flank pain radiating to right lower quadrant. Labs, KUB, 10 mg of hydrocodone, 1 L normal saline ordered. Labs: White blood cells 12.4, rest of CBC unremarkable, CMP unremarkable, urinalysis negative. KUB shows nonobstructive bowel gas pattern. Computed tomography scan ordered for continuing pain. Computed tomography scan shows symptomatically with no acute process, postop changes. Final for discussed with patient. Patient is given discharge home with follow-up primary care. Case discussed with Dr. Gustafson - Lab Data Result diagrams: 09/03/21 09:36 09/03/21 09:36 Lab Results 09/03/21 09/03/21 09/03/21 Range/Units 09:36 09:36 09:36 WBC 12.4 H (3.8-10.6) k/uL RBC 4.91 (3.80-5.40) m/uL Hgb 14.1 (11.4-16.0) gm/dL Hct 42.8 (34.0-46.0) % MCV 87.2 (80.0-100.0) fL MCH 28.8 (25.0-35.0) pg MCHC 33.0 (31.0-37.0) g/dL RDW 13.5 (11.5-15.5) % Plt Count 293 (150-450) k/uL MPV 7.4 Neutrophils % 79 % Lymphocytes % 13 % Monocytes % 4 % Eosinophils % 3 % Basophils % 0 % Neutrophils # 9.8 H (1.3-7.7) k/uL Lymphocytes # 1.6 (1.0-4.8) k/uL Monocytes # 0.5 (0-1.0) k/uL Eosinophils # 0.3 (0-0.7) k/uL Basophils # 0.0 (0-0.2) k/uL Sodium 134 L (137-145) mmol/L Potassium 4.0 (3.5-5.1) mmol/L Chloride 103 (98-107) mmol/L Carbon Dioxide 27 (22-30) mmol/L Anion Gap 4 mmol/L BUN 10 (7-17) mg/dL Creatinine 0.62 (0.52-1.04) mg/dL Est GFR (CKD-EPI)AfAm >90 (>60 ml/min/1.73 sqM) Est GFR (CKD-EPI)NonAf >90 (>60 ml/min/1.73 sqM) Glucose 108 H (74-99) mg/dL Calcium 8.3 L (8.4-10.2) mg/dL Total Bilirubin 0.6 (0.2-1.3) mg/dL AST 26 (14-36) U/L ALT 25 (4-34) U/L Alkaline Phosphatase 63 (38-126) U/L Total Protein 6.2 L (6.3-8.2) g/dL Albumin 3.3 L (3.5-5.0) g/dL Urine Color Urine Appearance (Clear) Urine pH (5.0-8.0) Ur Specific Krypton (1.001-1.035) Urine Protein (Negative) Urine Glucose (UA) (Negative) Urine Ketones (Negative) Urine Blood (Negative) Urine Nitrite (Negative) Urine Bilirubin (Negative) Urine Urobilinogen (<2.0) mg/dL Ur Leukocyte Esterase (Negative) Urine RBC (0-5) /hpf Urine WBC (0-5) /hpf Ur Squamous Epith Cells (0-4) /hpf Urine Mucus (None) /hpf Urine HCG, Qual Not Detected (Not Detectd) 09/03/21 Range/Units 11:02 WBC (3.8-10.6) k/uL RBC (3.80-5.40) m/uL Hgb (11.4-16.0) gm/dL Hct (34.0-46.0) % MCV (80.0-100.0) fL MCH (25.0-35.0) pg MCHC (31.0-37.0) g/dL RDW (11.5-15.5) % Plt Count (150-450) k/uL MPV Neutrophils % % Lymphocytes % % Monocytes % % Eosinophils % % Basophils % % Neutrophils # (1.3-7.7) k/uL Lymphocytes # (1.0-4.8) k/uL Monocytes # (0-1.0) k/uL Eosinophils # (0-0.7) k/uL Basophils # (0-0.2) k/uL Sodium (137-145) mmol/L Potassium (3.5-5.1) mmol/L Chloride (98-107) mmol/L Carbon Dioxide (22-30) mmol/L Anion Gap mmol/L BUN (7-17) mg/dL Creatinine (0.52-1.04) mg/dL Est GFR (CKD-EPI)AfAm (>60 ml/min/1.73 sqM) Est GFR (CKD-EPI)NonAf (>60 ml/min/1.73 sqM) Glucose (74-99) mg/dL Calcium (8.4-10.2) mg/dL Total Bilirubin (0.2-1.3) mg/dL AST (14-36) U/L ALT (4-34) U/L Alkaline Phosphatase (38-126) U/L Total Protein (6.3-8.2) g/dL Albumin (3.5-5.0) g/dL Urine Color Yellow Urine Appearance Clear (Clear) Urine pH 6.5 (5.0-8.0) Ur Specific Krypton 1.014 (1.001-1.035) Urine Protein Negative (Negative) Urine Glucose (UA) Negative (Negative) Urine Ketones Negative (Negative) Urine Blood Negative (Negative) Urine Nitrite Negative (Negative) Urine Bilirubin Negative (Negative) Urine Urobilinogen <2.0 (<2.0) mg/dL Ur Leukocyte Esterase Trace H (Negative) Urine RBC <1 (0-5) /hpf Urine WBC 2 (0-5) /hpf Ur Squamous Epith Cells 2 (0-4) /hpf Urine Mucus Rare H (None) /hpf Urine HCG, Qual (Not Detectd) - Radiology Data Radiology results: report reviewed, image reviewed CT of the abdomen and pelvis: Splenomegaly interval resolution of left adnexal cyst. Postop changes. KUB: Nonobstructive bowel gas pattern. Disposition Clinical Impression: Right flank pain, Abdominal pain, Splenomegaly Disposition: HOME SELF-CARE Condition: Stable Instructions (If sedation given, give patient instructions): Abdominal Pain (ED) Additional Instructions: Please return to the Emergency Department if symptoms worsen or any other jos rns. Follow-up with primary care 1-2 days. Take Tylenol Motrin alternating every 3 hours as needed for pain. Increase fluids. Avoid any focal contact sports or strenuous activity due to his enlarged spleen. Is patient prescribed a controlled substance at d/c from ED?: No Referrals: None,Stated [Primary Care Provider] - 1-2 days Time of Disposition: 13:57
== END 2021-09-03 14:49 | disposition home or self-care (01) ==
LOC: EC 09:03
DX: R10.31 Right lower quadrant pain (principal); R16.1 Splenomegaly, not elsewhere classified; I10 Essential (primary) hypertension; E66.9 Obesity, unspecified; Z68.41 Body mass index [BMI] 40.0-44.9, adult
CPT/HCPCS: 36415; 74018; 74176; 80053; 81001; 81025; 85025; 99284

== ENCOUNTER 2021-09-29 13:28 | Emergency (ER) | payer MEDICARE, OTHER ==
[2021-09-29 13:53] VITALS: BP 104/68; PULSE 74; RESP 16; TEMP 98
--- NOTE | 2021-09-29 14:31 | XR ---
Right knee HISTORY: Trauma and pain 3 views of the right knee correlated prior exam 06/16/2019 Tricompartmental marginal spurring is present consistent with osteoarthritis. No evident joint effusi on. Bone mineralization and alignment are maintained. Some loss of joint space questioned at the carias llofemoral joint. There is an ossific density seen on the frontal view at the level of the tibial spi ne medially IMPRESSION: No fracture or dislocation is suspected, suspect a loose body.
--- NOTE | 2021-09-29 14:40 | ED ---
General Adult HPI - General Chief complaint: Extremity Injury, Lower Stated complaint: fall, rt knee injury Time Seen by Provider: 09/29/21 14:04 Source: patient, RN notes reviewed, old records reviewed Mode of arrival: wheelchair Limitations: no limitations - History of Present Illness Initial comments: 40-year-old female status post a slip and fall. Patient slipped on ice, fell onto her right knee. This was yesterday. She has been able to ambulate but his had pain and swelling. No other injury reported. - Related Data Home Medications Medication Instructions Recorded Confirmed Ibuprofen [Motrin Ib] 200 mg PO Q8H PRN 09/03/21 09/03/21 Allergies Allergy/AdvReac Type Severity Reaction Status Date / Time Iodinated Contrast Media Allergy Rash/Hives Verified 09/29/21 13:53 [Iodinated Contrast Media - IV Dye] iodine Allergy Rash/Hives Verified 09/29/21 13:53 Iodine and Iodide Containing Allergy Rash/Hives Verified 09/29/21 13:53 Produc bupropion HCl AdvReac Unknown Homicidal Verified 09/29/21 13:53 [From Wellbutrin] Ideation aspirin AdvReac Nausea & Verified 09/29/21 13:53 Vomiting hydromorphone HCl AdvReac Diarrhea Verified 09/29/21 13:53 [From Dilaudid] propoxyphene napsylate AdvReac Nausea & Verified 09/29/21 13:53 [From Darvocet-N] Vomiting steroids Allergy Rash/Hives Uncoded 09/29/21 13:53 Review of Systems ROS Statement: Those systems with pertinent positive or pertinent negative responses have been documented in the HPI. ROS Other: All systems not noted in ROS Statement are negative. Past Medical History Past Medical History: Asthma, CVA/TIA, Hypertension, Seizure Disorder, Thyroid Disorder Additional Past Medical History / Comment(s): 11/2017 TIA or CVA (pt unsure) with resolved L sided weakness/aphasia but states still has short term memory loss, last seizure in 2017, frequent kidney infections, kidney stones she passed on her own, chronic cervical and low back pain, past fractured coccyx, gestational diabetes. History of Any Multi-Drug Resistant Organisms: MRSA Date of last positivie culture/infection: 1999,2013, 2016 MDRO Source:: right leg Past Surgical History: Appendectomy, Section, Cholecystectomy, Tonsillectomy, Tubal Ligation Additional Past Surgical History / Comment(s): Multiple ear surgeries (x15 left ear & 13 right ear) ended up with eardrum replacements, x2 Past Anesthesia/Blood Transfusion Reactions: No Reported Reaction Additional Past Anesthesia/Blood Transfusion Reaction / Comment(s): PT STATES DIFFICULTY WAKING UP. PTS FATHER ALSO HAS DIFFICULTY WAKING UP. Past Psychological History: ADD/ADHD, Anxiety Smoking Status: Never smoker Past Alcohol Use History: None Reported Past Drug Use History: None Reported - Past Family History Mother Family Medical History: Cancer Additional Family Medical History / Comment(s): KIDNEY CANCER- in 2012 at the age of 68yrs. Father Family Medical History: CVA/TIA, Myocardial Infarction ([place]) Additional Family Medical History / Comment(s): Father had 8 CVAs and 2 MIs. His first [place] was at age 69yrs and 2nd [place] was at age 71yrs. He has a pacemaker. He is dyslexic. General Exam Limitations: no limitations General appearance: alert, in no apparent distress Head exam: Present: atraumatic, normocephalic Eye exam: Present: normal appearance, PERRL ENT exam: Present: normal exam Neck exam: Present: normal inspection. Absent: tenderness, meningismus Respiratory exam: Present: normal lung sounds bilaterally. Absent: respiratory distress, wheezes Cardiovascular Exam: Present: regular rate, normal rhythm GI/Abdominal exam: Present: soft. Absent: distended, tenderness, guarding Extremities exam: Present: tenderness (Slight tenderness, anterior right knee.), joint swelling (Mild soft tissue swelling right knee, no ecchymosis, no deformity), other (Extremities warm, good distal pulses.). Absent: pedal edema Course Vital Signs 09/29/21 13:51 Temperature 98 F Pulse Rate 74 Respiratory 16 Rate Blood Pressure 104/68 O2 Sat by Pulse 99 Oximetry Medical Decision Making - Medical Decision Making X-ray performed which is negative for displaced fracture or dislocation. Patient is informed to elevate, ice extremity. She will follow-up with orthopedics for repeat imaging if symptoms persist. Disposition Clinical Impression: Knee sprain Disposition: HOME SELF-CARE Condition: Good Instructions (If sedation given, give patient instructions): Knee Sprain (ED) Is patient prescribed a controlled substance at d/c from ED?: No Referrals: None,Stated [Primary Care Provider] - 1-2 days Lenin,Sathya, MD [STAFF PHYSICIAN] - 1-2 days Time of Disposition: 14:39
== END 2021-09-29 14:54 | disposition home or self-care (01) ==
LOC: EC 13:28
DX: S83.91XA Sprain of unspecified site of right knee, initial encounter (principal); I10 Essential (primary) hypertension; J45.909 Unspecified asthma, uncomplicated; Z79.1 Long term (current) use of non-steroidal anti-inflammatories (NSAID); W01.0XXA Fall on same level from slipping, tripping and stumbling without subsequent striking against object, initial encounter
CPT/HCPCS: 99284

== ENCOUNTER 2021-10-31 18:05 | Emergency (ER) | payer MEDICARE, OTHER ==
[2021-10-31 18:09] VITALS: BP 133/85; RESP 16; TEMP 97.7
[2021-10-31] MEDS ORDERED: ONDANSETRON 4 MG/2 ML VIAL IVP STA (18:25)
[2021-10-31] MEDS ORDERED: MORPHINE SULFATE 4 MG/ML SYRINGE IVP STA (18:25)
--- NOTE | 2021-10-31 18:34 | ED ---
General Adult HPI - General Chief complaint: Back Pain/Injury Stated complaint: Chest/back pain Time Seen by Provider: 10/31/21 18:21 Source: patient Mode of arrival: wheelchair Limitations: no limitations - History of Present Illness Initial comments: 41 year-old female patient presents to the emergency department for evaluation of chest pain and low back pain. States symptoms started yesterday and have been worsening. States the pain in her back is constant. States pain is in the mid lumbar region. Denies any radiation down her legs. Denies saddle anesthesia or loss of bowel or bladder control. Denies any numbness or tingling to the legs or feet. Denies any injury to the back. Reports history of chronic back pain. Takes ibuprofen. States the chest pain has been intermittent and beneath the lower sternum. Denies any shortness of breath, cough, or congestion. She reports history of TIA x3. Family history of CAD and CVA. She is not vaccinated for COVID. Patient denies any recent rash, fever, chills, abdominal pain, nausea, vomiting, diarrhea, constipation, weakness, hematuria, dysuria, urinary urgency, urinary frequency, headache, visual changes, or any other complaints. - Related Data Home Medications Medication Instructions Recorded Confirmed Ibuprofen [Motrin Ib] 200 mg PO Q8H PRN 09/03/21 09/03/21 Previous Rx's Medication Instructions Recorded Cyclobenzaprine [Flexeril] 10 mg PO TID #15 tab 10/31/21 Allergies Allergy/AdvReac Type Severity Reaction Status Date / Time Iodinated Contrast Media Allergy Rash/Hives Verified 10/31/21 18:09 [Iodinated Contrast Media - IV Dye] iodine Allergy Rash/Hives Verified 10/31/21 18:09 Iodine and Iodide Containing Allergy Rash/Hives Verified 10/31/21 18:09 Produc bupropion HCl AdvReac Unknown Homicidal Verified 10/31/21 18:09 [From Wellbutrin] Ideation aspirin AdvReac Nausea & Verified 10/31/21 18:09 Vomiting hydromorphone HCl AdvReac Diarrhea Verified 10/31/21 18:09 [From Dilaudid] propoxyphene napsylate AdvReac Nausea & Verified 10/31/21 18:09 [From Darvocet-N] Vomiting steroids Allergy Rash/Hives Uncoded 10/31/21 18:09 Review of Systems ROS Statement: Those systems with pertinent positive or pertinent negative responses have been documented in the HPI. ROS Other: All systems not noted in ROS Statement are negative. Past Medical History Past Medical History: Asthma, CVA/TIA, Hypertension, Seizure Disorder, Thyroid Disorder Additional Past Medical History / Comment(s): 11/2017 TIA or CVA (pt unsure) with resolved L sided weakness/aphasia but states still has short term memory loss, last seizure in 2017, frequent kidney infections, kidney stones she passed on her own, chronic cervical and low back pain, past fractured coccyx, gestational diabetes. History of Any Multi-Drug Resistant Organisms: MRSA Date of last positivie culture/infection: 1999,2013, 2016 MDRO Source:: right leg Past Surgical History: Appendectomy, Section, Cholecystectomy, Tonsillectomy, Tubal Ligation Additional Past Surgical History / Comment(s): Multiple ear surgeries (x15 left ear & 13 right ear) ended up with eardrum replacements, x2 Past Anesthesia/Blood Transfusion Reactions: No Reported Reaction Additional Past Anesthesia/Blood Transfusion Reaction / Comment(s): PT STATES DIFFICULTY WAKING UP. PTS FATHER ALSO HAS DIFFICULTY WAKING UP. Past Psychological History: ADD/ADHD, Anxiety Smoking Status: Never smoker Past Alcohol Use History: None Reported Past Drug Use History: None Reported - Past Family History Mother Family Medical History: Cancer Additional Family Medical History / Comment(s): KIDNEY CANCER- in 2012 at the age of 68yrs. Father Family Medical History: CVA/TIA, Myocardial Infarction (NM) Additional Family Medical History / Comment(s): Father had 8 CVAs and 2 MIs. His first NM was at age 69yrs and 2nd NM was at age 71yrs. He has a pacemaker. He is dyslexic. General Exam Limitations: no limitations General appearance: alert, in no apparent distress, other (This is a well- developed, well-nourished adult female in no acute distress.) ENT exam: Present: normal exam, normal oropharynx, mucous membranes moist Respiratory exam: Present: normal lung sounds bilaterally. Absent: respiratory distress, wheezes, rales, rhonchi, stridor Cardiovascular Exam: Present: regular rate, normal rhythm, normal heart sounds. Absent: systolic murmur, diastolic murmur, rubs, gallop, clicks GI/Abdominal exam: Present: soft, normal bowel sounds. Absent: distended, t enderness, guarding, rebound, rigid Extremities exam: Present: normal inspection, full ROM, normal capillary refill, other (Skin the lower extremities is pink, warm, dry. Cap refill less than 3 seconds. Pedal and posttibial pulses 2+.). Absent: tenderness, pedal edema, amol int swelling, calf tenderness Neurological exam: Present: alert, oriented X3, CN II-XII intact Psychiatric exam: Present: normal affect, normal mood Skin exam: Present: warm, dry, intact, normal color. Absent: rash Course Vital Signs 10/31/21 10/31/21 18:07 20:00 Temperature 97.7 F Pulse Rate 67 78 Respiratory 16 16 Rate Blood Pressure 133/85 O2 Sat by Pulse 100 99 Oximetry EKG Findings - EKG Comments: EKG Findings:: EKG obtained at 1816 shows normal sinus rhythm with a ventricular rate of 72, TX interval 158, QRS duration 90, QT 406, QTc 444. No evidence of ST elevation or depression. Medical Decision Making - Medical Decision Making 41 year-old female patient presenting for chest pain and low back pain. Physical examination unremarkable. She is neurologically intact deficits. She has no concerning symptoms for cauda equina. Vital signs are unremarkable. Labs reviewed and revealed normal troponin. Chest x-ray is negative. EKG was unremarkable. I did discuss findings and results with her. She was discharged follow up with her primary care physician for recheck in 1-2 days. Will start her on muscle relaxers, continue taking ibuprofen at home, given a Tylenol with Codeine starter pack. Return parameters were discussed in detail. She verbalizes understanding and agrees with this plan. My attending is Dr. Bustillos. - Lab Data Result diagrams: 10/31/21 19:05 10/31/21 19:05 Lab Results 10/31/21 10/31/21 10/31/21 Range/Units 19: 19: 19:05 WBC 10.8 H (3.8-10.6) k/uL RBC 4.78 (3.80-5.40) m/uL Hgb 14.0 (11.4-16.0) gm/dL Hct 41.9 (34.0-46.0) % MCV 87.6 (80.0-100.0) fL MCH 29.4 (25.0-35.0) pg MCHC 33.6 (31.0-37.0) g/dL RDW 12.7 (11.5-15.5) % Plt Count 309 (150-450) k/uL MPV 7.9 Neutrophils % 69 % Lymphocytes % 21 % Monocytes % 5 % Eosinophils % 3 % Basophils % 0 % Neutrophils # 7.4 (1.3-7.7) k/uL Lymphocytes # 2.3 (1.0-4.8) k/uL Monocytes # 0.6 (0-1.0) k/uL Eosinophils # 0.4 (0-0.7) k/uL Basophils # 0.0 (0-0.2) k/uL PT 9.9 (9.0-12.0) sec INR 0.9 (<1.2) APTT 24.7 (22.0-30.0) sec Sodium 135 L (137-145) mmol/L Potassium 4.4 (3.5-5.1) mmol/L Chloride 104 (98-107) mmol/L Carbon Dioxide 25 (22-30) mmol/L Anion Gap 6 mmol/L BUN 12 (7-17) mg/dL Creatinine 0.57 (0.52-1.04) mg/dL Est GFR (CKD-EPI)AfAm >90 (>60 ml/min/1.73 sqM) Est GFR (CKD-EPI)NonAf >90 (>60 ml/min/1.73 sqM) Glucose 96 (74-99) mg/dL Calcium 9.1 (8.4-10.2) mg/dL Magnesium 1.9 (1.6-2.3) mg/dL Total Bilirubin 0.3 (0.2-1.3) mg/dL AST 20 (14-36) U/L ALT 18 (4-34) U/L Alkaline Phosphatase 58 (38-126) U/L Troponin I (0.000-0.034) ng/mL Total Protein 6.5 (6.3-8.2) g/dL Albumin 3.7 (3.5-5.0) g/dL Lipase 85 (23-300) U/L 10/31/21 Range/Units 19:05 WBC (3.8-10.6) k/uL RBC (3.80-5.40) m/uL Hgb (11.4-16.0) gm/dL Hct (34.0-46.0) % MCV (80.0-100.0) fL MCH (25.0-35.0) pg MCHC (31.0-37.0) g/dL RDW (11.5-15.5) % Plt Count (150-450) k/uL MPV Neutrophils % % Lymphocytes % % Monocytes % % Eosinophils % % Basophils % % Neutrophils # (1.3-7.7) k/uL Lymphocytes # (1.0-4.8) k/uL Monocytes # (0-1.0) k/uL Eosinophils # (0-0.7) k/uL Basophils # (0-0.2) k/uL PT (9.0-12.0) sec INR (<1.2) APTT (22.0-30.0) sec Sodium (137-145) mmol/L Potassium (3.5-5.1) mmol/L Chloride (98-107) mmol/L Carbon Dioxide (22-30) mmol/L Anion Gap mmol/L BUN (7-17) mg/dL Creatinine (0.52-1.04) mg/dL Est GFR (CKD-EPI)AfAm (>60 ml/min/1.73 sqM) Est GFR (CKD-EPI)NonAf (>60 ml/min/1.73 sqM) Glucose (74-99) mg/dL Calcium (8.4-10.2) mg/dL Magnesium (1.6-2.3) mg/dL Total Bilirubin (0.2-1.3) mg/dL AST (14-36) U/L ALT (4-34) U/L Alkaline Phosphatase (38-126) U/L Troponin I <0.012 (0.000-0.034) ng/mL Total Protein (6.3-8.2) g/dL Albumin (3.5-5.0) g/dL Lipase (23-300) U/L - Radiology Data Radiology results: report reviewed, image reviewed 2 views of the chest are obtained. Report was reviewed in its entirety. Impression by Dr. Lugo shows no acute cardio pulmonary disease/process. Disposition Clinical Impression: Acute exacerbation of chronic low back pain, Chest pain Disposition: HOME SELF-CARE Condition: Good Instructions (If sedation given, give patient instructions): Chest Pain (ED), Acute Low Back Pain (ED) Additional Instructions: Take medications as directed. Follow-up with her primary care physician for recheck in 1-2 days. Return for any new, worsening, or concerning symptoms. Prescriptions: Cyclobenzaprine [Flexeril] 10 mg PO TID #15 tab Is patient prescribed a controlled substance at d/c from ED?: No Referrals: None,Stated [Primary Care Provider] - 1-2 days Time of Disposition: 20:29
[2021-10-31 19:25] LABS: Basophils % (A) 0 %; Eosinophils # (A) 0.4 k/uL (0-0.7); Eosinophils % (A) 3 %; HCT 41.9 % (34.0-46.0); Lymphocytes # (A) 2.3 k/uL (1.0-4.8); Lymphocytes % (A) 21 %; MCH 29.4 pg (25.0-35.0); MCHC 33.6 g/dL (31.0-37.0); MCV 87.6 fL (80.0-100.0); Mean Platelet Volume 7.9; Monocytes # (A) 0.6 k/uL (0-1.0); Monocytes % (A) 5 %; Neutrophils # (A) 7.4 k/uL (1.3-7.7); Neutrophils % (A) 69 %; Platelet Count 309 k/uL (150-450); RBC 4.78 m/uL (3.80-5.40); RDW 12.7 % (11.5-15.5); WBC 10.8 k/uL (3.8-10.6)
[2021-10-31 19:38] LABS: ALT 18 U/L (4-34); AST 20 U/L (14-36); African American GFR (CKD) >90 (>60 ml/min/1.73 sqM); Albumin 3.7 g/dL (3.5-5.0); Alkaline Phosphatase 58 U/L (38-126); Anion Gap 6 mmol/L; Blood Urea Nitrogen 12 mg/dL (7-17); Calcium 9.1 mg/dL (8.4-10.2); Carbon Dioxide 25 mmol/L (22-30); Chloride 104 mmol/L (98-107); Glucose 96 mg/dL (74-99); INR 0.9 (<1.2); Lipase 85 U/L (23-300); Magnesium 1.9 mg/dL (1.6-2.3); Non-African American GFR(CKD) >90 (>60 ml/min/1.73 sqM); Partial Thromboplastin Time 24.7 sec (22.0-30.0); Potassium 4.4 mmol/L (3.5-5.1); Prothrombin Time 9.9 sec (9.0-12.0); Sodium 135 mmol/L (137-145); Total Bilirubin 0.3 mg/dL (0.2-1.3); Total Protein 6.5 g/dL (6.3-8.2)
--- NOTE | 2021-10-31 19:41 | XR ---
EXAMINATION TYPE: XR chest 2V DATE OF EXAM: 10/31/2021 6:54 PM COMPARISON:Chest radiographs from 05/26/2021 TECHNIQUE: Frontal and lateral views of the chest. CLINICAL INDICATION:Female, 41 years old with history of Chest Pain; FINDINGS: Lungs/Pleura: There is no evidence of pleural effusion, focal consolidation, or pneumothorax. Pulmonary vascularity: Unremarkable. Heart/mediastinum: Cardiomediastinal silhouette is unremarkable. Musculoskeletal: No acute osseous pathology. IMPRESSION: No acute cardiopulmonary disease/process.
[2021-10-31 20:25] VITALS: PULSE 78
[2021-10-31] MEDS ORDERED: ACET/COD 300 MG/30 MG STARTER PACK 6 TAB BTL PO STA (20:29)
[2021-10-31 21:44] LABS: Appearance,Urine Clear (Clear); Bacteria,Urine Rare /hpf; Bilirubin,Urine Negative (Negative); Blood,Urine Large (Negative); Color,Urine Yellow; Glucose,Urine (UA) Negative (Negative); Ketones,Urine Negative (Negative); Leukocyte Esterase,Urine Trace (Negative); Mucus,Urine Occasional /hpf; Nitrite,Urine Negative (Negative); Protein,Urine Trace (Negative); RBC,Urine >182 /hpf (0-5); Specific Gravity,Urine 1.021 (1.001-1.035); Squamous Epithelial Cell,Urine 1 /hpf (0-4); Urobilinogen,Urine <2.0 mg/dL (<2.0); WBC,Urine 4 /hpf (0-5)
== END 2021-10-31 20:48 | disposition home or self-care (01) ==
LOC: EC 18:05
DX: G89.29 Other chronic pain (principal); M54.50 Low back pain, unspecified; R07.9 Chest pain, unspecified; I10 Essential (primary) hypertension; J45.909 Unspecified asthma, uncomplicated; Z79.1 Long term (current) use of non-steroidal anti-inflammatories (NSAID)
CPT/HCPCS: 99285; 96374; 96375; 36415; 93005; 80053; 83690; 83735; 84484; 85025; 85610; 85730; 81001; 71046; J2270; J2405

== ENCOUNTER 2021-11-26 11:19 | Emergency (ER) | payer MEDICARE, OTHER ==
[2021-11-26] MEDS ORDERED: CYCLOBENZAPRINE 10 MG TAB PO STA (11:46)
[2021-11-26] MEDS ORDERED: ACETAMINOPHEN TAB 500 MG TAB PO STA (11:48)
--- NOTE | 2021-11-26 12:19 | XR ---
Thoracic and lumbar spine HISTORY: Trauma and pain 3 views of the lumbar spine and 2views of the thoracic spine on 3 images submitted No comparisons There is multilevel spondylosis within the thoracic spine. There is mild spinal curvature which could be positional. Thoracic vertebral bodies show preserved height and bone mineralization. Some loss of disc height at the mid thoracic level is consistent with underlying degenerative disc disease. Lumbar spine shows a slight spinal curvature. There is multilevel spondylosis. Disc height relatively maintained. Sclerosis in the posterior elements may be indicative of facet arthropathy. IMPRESSION: Degenerative disc disease and facet arthropathy, possible spinal curvature is. There is n o acute fracture or location.
--- NOTE | 2021-11-26 12:26 | ED ---
Fall HPI - General Chief Complaint: Fall Stated Complaint: Fall down 6 stairs Time Seen by Provider: 11/26/21 11:28 Source: patient Mode of arrival: wheelchair - History of Present Illness Initial Comments: Patient is a 41-year-old male who presents to the emergency department with a chief complaint of mid/low back pain after fall down 6 stairs yesterday. Patient did not hit her head. Patient is on blood thinners. Patient reports she landed on her right side. Patient reports mid to low back pain which was tolerable but has experienced some mild numbness/tingling down her right leg today which concerned her to come to the hospital. Patient Motrin for pain with no relief. Pain is worsened with twisting left and right. Patient denies numbness in the groin, urinary/bowel incontinence, urinary retention. She denies other complaints at this time including fever, chills, shortness of breath, chest pain, abdominal pain. - Related Data Previous Rx's Medication Instructions Recorded Acetaminophen-Codeine 300-30mg 1 tab PO Q4H PRN 3 Days #18 tablet 11/26/21 [Tylenol w/codeine #3] Allergies Allergy/AdvReac Type Severity Reaction Status Date / Time Iodinated Contrast Media Allergy Rash/Hives Verified 11/26/21 12:06 [Iodinated Contrast Media - IV Dye] iodine Allergy Rash/Hives Verified 11/26/21 12:06 Iodine and Iodide Containing Allergy Rash/Hives Verified 11/26/21 12:06 Produc bupropion HCl AdvReac Unknown Homicidal Verified 11/26/21 12:06 [From Wellbutrin] Ideation aspirin AdvReac Nausea & Verified 11/26/21 12:06 Vomiting hydromorphone HCl AdvReac Diarrhea Verified 11/26/21 12:06 [From Dilaudid] propoxyphene napsylate AdvReac Nausea & Verified 11/26/21 12:06 [From Darvocet-N] Vomiting steroids Allergy Rash/Hives Uncoded 10/31/21 18:09 Review of Systems ROS Statement: Those systems with pertinent positive or pertinent negative responses have been documented in the HPI. ROS Other: All systems not noted in ROS Statement are negative. Past Medical History Past Medical History: Asthma, CVA/TIA, Hypertension, Seizure Disorder, Thyroid Disorder Additional Past Medical History / Comment(s): 11/2017 TIA or CVA (pt unsure) with resolved L sided weakness/aphasia but states still has short term memory loss, last seizure in 2017, frequent kidney infections, kidney stones she passed on her own, chronic cervical and low back pain, past fractured coccyx, gestational diabetes. History of Any Multi-Drug Resistant Organisms: MRSA Date of last positivie culture/infection: 1999,2013, 2016 MDRO Source:: right leg Past Surgical History: Appendectomy, Section, Cholecystectomy, Tonsillectomy, Tubal Ligation Additional Past Surgical History / Comment(s): Multiple ear surgeries (x15 left ear & 13 right ear) ended up with eardrum replacements, x2 Past Anesthesia/Blood Transfusion Reactions: No Reported Reaction Additional Past Anesthesia/Blood Transfusion Reaction / Comment(s): PT STATES DIFFICULTY WAKING UP. PTS FATHER ALSO HAS DIFFICULTY WAKING UP. Past Psychological History: ADD/ADHD, Anxiety Smoking Status: Never smoker Past Alcohol Use History: None Reported Past Drug Use History: None Reported - Past Family History Mother Family Medical History: Cancer Additional Family Medical History / Comment(s): KIDNEY CANCER- in 2012 at the age of 68yrs. Father Family Medical History: CVA/TIA, Myocardial Infarction (MT) Additional Family Medical History / Comment(s): Father had 8 CVAs and 2 MIs. His first MT was at age 69yrs and 2nd MT was at age 71yrs. He has a pacemaker. He is dyslexic. General Exam Limitations: no limitations General appearance: alert, in no apparent distress Head exam: Present: atraumatic, normocephalic, normal inspection Eye exam: Present: normal appearance, PERRL, EOMI. Absent: scleral icterus, conjunctival injection, periorbital swelling Neck exam: Present: normal inspection. Absent: tenderness Respiratory exam: Present: normal lung sounds bilaterally. Absent: respiratory distress, wheezes, rales, rhonchi, stridor Cardiovascular Exam: Present: regular rate, normal rhythm, normal heart sounds. Absent: systolic murmur, diastolic murmur, rubs, gallop, clicks GI/Abdominal exam: Present: soft, normal bowel sounds. Absent: distended, tenderness, guarding, rebound, rigid Extremities exam: Present: normal inspection Back exam: Present: normal inspection, full ROM, tenderness (Along the thoracic and lumbar spine, as well as right-sided paravertebral muscles) Neurological exam: Present: alert, oriented X3, CN II-XII intact Psychiatric exam: Present: normal affect, normal mood Skin exam: Present: warm, dry, intact, normal color. Absent: rash Course Vital Signs 11/26/21 11:20 Temperature 98.2 F Pulse Rate 78 Respiratory 18 Rate Blood Pressure 136/84 O2 Sat by Pulse 98 Oximetry Medical Decision Making - Medical Decision Making This is a 41-year-old female who presents with mid to low back pain after fall down 6 stairs. Thorough history and examination were performed. Patient denies saddle anesthesia, bowel incontinence, and urinary symptoms such as urinary incontinence or retention. Patient is mildly tender with palpation over the lower thoracic and lumbar spine and right sided paravertebral muscles. Thoracic and lumbar x-ray reveal no acute fracture. Patient reports allergy to steroids and Toradol. Patient was given Tylenol and Flexeril with no relief. She was then given Tylenol with codeine as she reports that this usually works for her pain. On reevaluation pain is markedly improved. Patient will be discharged with a short course of Tylenol with codeine prescription as she reports Flexeril has never worked for her chronic back pain. Return parameters discussed. Patient verbalizes understanding and is agreeable to plan. Dr. England is my attending. Disposition Clinical Impression: Fall, Back pain Disposition: HOME SELF-CARE Condition: Good Instructions (If sedation given, give patient instructions): Fall Prevention (ED) Additional Instructions: Take Tylenol with codeine as needed for pain. Return to the emergency department if you experience new, concerning, or worsening symptoms. Prescriptions: Acetaminophen-Codeine 300-30mg [Tylenol w/codeine #3] 1 tab PO Q4H PRN 3 Days #18 tablet PRN Reason: Pain Is patient prescribed a controlled substance at d/c from ED?: Yes When asked, does pt state using other controlled substances?: No If prescribed controlled substance>3 days was MAPS reviewed?: Prescribed <3 Days If opioid is for acute pain is fill amount 7 days or less?: Yes If Rx opioid, was Start Talking consent form obtained?: Yes Referrals: None,Stated [Primary Care Provider] - 1-2 days Time of Disposition: 13:23
[2021-11-26] MEDS ORDERED: Acetaminophen-Codeine 300-30mg TAB PO STA (12:39)
[2021-11-26 14:10] VITALS: BP 122/90; PULSE 83; RESP 16; TEMP 98
== END 2021-11-26 14:13 | disposition home or self-care (01) ==
LOC: EC 11:19
DX: M54.59 Other low back pain (principal); J45.909 Unspecified asthma, uncomplicated; I10 Essential (primary) hypertension; E07.9 Disorder of thyroid, unspecified; F90.9 Attention-deficit hyperactivity disorder, unspecified type; F41.9 Anxiety disorder, unspecified; Z86.73 Personal history of transient ischemic attack (TIA), and cerebral infarction without residual deficits; Z87.442 Personal history of urinary calculi; Z90.49 Acquired absence of other specified parts of digestive tract; Z98.51 Tubal ligation status
CPT/HCPCS: 72070; 72100; 99283

== ENCOUNTER 2021-12-14 19:27 | Emergency (ER) | payer MEDICARE, OTHER ==
[2021-12-14 19:42] VITALS: TEMP 97.4
[2021-12-14] MEDS ORDERED: KETOROLAC 15 MG/ML 1 ML VIAL IVP STA (23:06)
[2021-12-14] MEDS ORDERED: SODIUM CHLORIDE 0.9% 1,000 ML IV STA (23:06)
--- NOTE | 2021-12-14 23:12 | ED ---
General Adult HPI - General Chief complaint: Abdominal Pain Stated complaint: Pelvic Pain Time Seen by Provider: 12/14/21 22:17 Source: patient, RN notes reviewed Mode of arrival: ambulatory Limitations: no limitations - History of Present Illness Initial comments: 41-year-old female presents to the emergency department for evaluation of low abdominal pain that radiates to the back and pelvis. Patient states she feels like her "uterus is going to explode." Reports this pain has been ongoing for the past 4 days and worsened today while at work. Denies any chance of stating that she had a tubal ligation 15 years ago. No fever, chills, headache, chest pain, shortness of breath, nausea, vomiting, diarrhea, dysuria, or hematuria. - Related Data Home Medications Medication Instructions Recorded Confirmed Acetaminophen Tab [Tylenol Tab] 1,000 mg PO Q6HR PRN 12/14/21 12/14/21 Previous Rx's Medication Instructions Recorded Cephalexin [Keflex] 500 mg PO Q12HR 7 Days #14 cap 12/15/21 Allergies Allergy/AdvReac Type Severity Reaction Status Date / Time Iodinated Contrast Media Allergy Rash/Hives Verified 12/14/21 23:04 [Iodinated Contrast Media - IV Dye] iodine Allergy Rash/Hives Verified 12/14/21 23:04 Iodine and Iodide Containing Allergy Rash/Hives Verified 12/14/21 23:04 Produc bupropion HCl AdvReac Unknown Homicidal Verified 12/14/21 23:04 [From Wellbutrin] Ideation aspirin AdvReac Nausea & Verified 12/14/21 23:04 Vomiting hydromorphone HCl AdvReac Diarrhea Verified 12/14/21 23:04 [From Dilaudid] propoxyphene napsylate AdvReac Nausea & Verified 12/14/21 23:04 [From Darvocet-N] Vomiting steroids Allergy Rash/Hives Uncoded 12/14/21 19:42 Review of Systems ROS Statement: Those systems with pertinent positive or pertinent negative responses have been documented in the HPI. ROS Other: All systems not noted in ROS Statement are negative. Past Medical History Past Medical History: Asthma, CVA/TIA, Hypertension, Seizure Disorder, Thyroid Disorder Additional Past Medical History / Comment(s): 11/2017 TIA or CVA (pt unsure) with resolved L sided weakness/aphasia but states still has short term memory loss, last seizure in 2017, frequent kidney infections, kidney stones she passed on her own, chronic cervical and low back pain, past fractured coccyx, gestational diabetes. History of Any Multi-Drug Resistant Organisms: MRSA Date of last positivie culture/infection: 1999,2013, 2016 MDRO Source:: right leg Past Surgical History: Appendectomy, Section, Cholecystectomy, Tonsillectomy, Tubal Ligation Additional Past Surgical History / Comment(s): Multiple ear surgeries (x15 left ear & 13 right ear) ended up with eardrum replacements, x2 Past Anesthesia/Blood Transfusion Reactions: No Reported Reaction Additional Past Anesthesia/Blood Transfusion Reaction / Comment(s): PT STATES DIFFICULTY WAKING UP. PTS FATHER ALSO HAS DIFFICULTY WAKING UP. Past Psychological History: ADD/ADHD, Anxiety Smoking Status: Never smoker Past Alcohol Use History: None Reported Past Drug Use History: None Reported - Past Family History Mother Family Medical History: Cancer Additional Family Medical History / Comment(s): KIDNEY CANCER- in 2012 at the age of 68yrs. Father Family Medical History: CVA/TIA, Myocardial Infarction ([place]) Additional Family Medical History / Comment(s): Father had 8 CVAs and 2 MIs. His first [place] was at age 69yrs and 2nd [place] was at age 71yrs. He has a pacemaker. He is dyslexic. General Exam Limitations: no limitations (Well-developed, well-nourished female in no acute distress. Initial temperature 97.4, pulse 72, respirations 18, blood pressure 118/60, pulse ox 100% on room air.) General appearance: alert, in no apparent distress Respiratory exam: Present: normal lung sounds bilaterally. Absent: respiratory distress, wheezes, rales, rhonchi, stridor, chest wall tenderness Cardiovascular Exam: Present: regular rate, normal rhythm, normal heart sounds. Absent: systolic murmur, diastolic murmur, rubs, gallop, clicks GI/Abdominal exam: Present: soft, tenderness (Diffuse lower abdominal tenderness upon palpation), normal bowel sounds. Absent: distended, guarding, rebound, rigid Back exam: Present: CVA tenderness (R), CVA tenderness (L) Neurological exam: Present: alert, oriented X3, CN II-XII intact Psychiatric exam: Present: normal affect, normal mood Skin exam: Present: warm, dry, intact, normal color. Absent: rash Course Vital Signs 12/14/21 12/14/21 12/15/21 19:40 22:00 00:10 Temperature 97.4 F L Pulse Rate 72 73 89 Respiratory 18 18 15 Rate Blood Pressure 118/68 118/81 135/92 O2 Sat by Pulse 100 97 Oximetry - Reevaluation(s) Reevaluation #1: 12/15/21 00:31 Upon reevaluation, patient is feeling improved. Discussed findings with patient. Will treat UTI and provide with a work note. Medical Decision Making - Medical Decision Making This is a 41-year-old female with a past medical history of asthma, hypertension, seizure disorder, CVA, and thyroid disorder who presents to the emergency department for evaluation of lower abdominal discomfort she localizes to her uterus, upon exam, patient is well-appearing and in no acute distress. Vital signs are stable. There is no chance of as patient has had a tubal ligation. IV access was obtained, patient was given fluids, nausea medicine, and pain medicine with some improvement. Ultrasound was obtained and was unremarkable with the exception of what small cervical cyst. Findings were reviewed with patient. Urinalysis is positive for moderate leukocyte esterase, urine rbc's and wbc's, as well as Hyline casts. Patient will be started on oral antibiotic as UTI is likely the cause of her discomfort. Plan of care discussed with patient, she verbalizes understanding and agrees. Instructed to follow up with PCP for recheck. Return parameters were discussed in detail. Patient verbalizes understanding and agrees with this plan. Attending: Jayjay - Lab Data Result diagrams: 12/14/21 23:13 12/14/21 23:13 Lab Results 12/14/21 12/14/21 12/14/21 Range/Units 23:13 23:13 23:13 WBC 12.0 H (3.8-10.6) k/uL RBC 4.75 (3.80-5.40) m/uL Hgb 13.4 (11.4-16.0) gm/dL Hct 41.3 (34.0-46.0) % MCV 87.0 (80.0-100.0) fL MCH 28.2 (25.0-35.0) pg MCHC 32.4 (31.0-37.0) g/dL RDW 12.5 (11.5-15.5) % Plt Count 297 (150-450) k/uL MPV 8.1 Neutrophils % 69 % Lymphocytes % 19 % Monocytes % 6 % Eosinophils % 4 % Basophils % 0 % Neutrophils # 8.3 H (1.3-7.7) k/uL Lymphocytes # 2.3 (1.0-4.8) k/uL Monocytes # 0.7 (0-1.0) k/uL Eosinophils # 0.5 (0-0.7) k/uL Basophils # 0.1 (0-0.2) k/uL Sodium (137-145) mmol/L Potassium (3.5-5.1) mmol/L Chloride (98-107) mmol/L Carbon Dioxide (22-30) mmol/L Anion Gap mmol/L BUN (7-17) mg/dL Creatinine (0.52-1.04) mg/dL Est GFR (CKD-EPI)AfAm (>60 ml/min/1.73 sqM) Est GFR (CKD-EPI)NonAf (>60 ml/min/1.73 sqM) Glucose (74-99) mg/dL Calcium (8.4-10.2) mg/dL Total Bilirubin (0.2-1.3) mg/dL AST (14-36) U/L ALT (4-34) U/L Alkaline Phosphatase (38-126) U/L Total Protein (6.3-8.2) g/dL Albumin (3.5-5.0) g/dL Lipase (23-300) U/L Urine Color Yellow Urine Appearance Cloudy H (Clear) Urine pH 6.0 (5.0-8.0) Ur Specific [place] 1.024 (1.001-1.035) Urine Protein Negative (Negative) Urine Glucose (UA) Negative (Negative) Urine Ketones Negative (Negative) Urine Blood Large H (Negative) Urine Nitrite Negative (Negative) Urine Bilirubin Negative (Negative) Urine Urobilinogen <2.0 (<2.0) mg/dL Ur Leukocyte Esterase Moderate H (Negative) Urine RBC 45 H (0-5) /hpf Urine WBC 38 H (0-5) /hpf Ur Squamous Epith Cells 3 (0-4) /hpf Urine Bacteria Rare H (None) /hpf Hyaline Casts 3 H (0-2) /lpf Urine Mucus Few H (None) /hpf Urine HCG, Qual Not Detected (Not Detectd) 12/14/21 Range/Units 23:13 WBC (3.8-10.6) k/uL RBC (3.80-5.40) m/uL Hgb (11.4-16.0) gm/dL Hct (34.0-46.0) % MCV (80.0-100.0) fL MCH (25.0-35.0) pg MCHC (31.0-37.0) g/dL RDW (11.5-15.5) % Plt Count (150-450) k/uL MPV Neutrophils % % Lymphocytes % % Monocytes % % Eosinophils % % Basophils % % Neutrophils # (1.3-7.7) k/uL Lymphocytes # (1.0-4.8) k/uL Monocytes # (0-1.0) k/uL Eosinophils # (0-0.7) k/uL Basophils # (0-0.2) k/uL Sodium 135 L (137-145) mmol/L Potassium 4.4 (3.5-5.1) mmol/L Chloride 102 (98-107) mmol/L Carbon Dioxide 24 (22-30) mmol/L Anion Gap 9 mmol/L BUN 16 (7-17) mg/dL Creatinine 0.64 (0.52-1.04) mg/dL Est GFR (CKD-EPI)AfAm >90 (>60 ml/min/1.73 sqM) Est GFR (CKD-EPI)NonAf >90 (>60 ml/min/1.73 sqM) Glucose 98 (74-99) mg/dL Calcium 8.7 (8.4-10.2) mg/dL Total Bilirubin 0.5 (0.2-1.3) mg/dL AST 22 (14-36) U/L ALT 17 (4-34) U/L Alkaline Phosphatase 54 (38-126) U/L Total Protein 6.6 (6.3-8.2) g/dL Albumin 3.7 (3.5-5.0) g/dL Lipase 87 (23-300) U/L Urine Color Urine Appearance (Clear) Urine pH (5.0-8.0) Ur Specific [place] (1.001-1.035) Urine Protein (Negative) Urine Glucose (UA) (Negative) Urine Ketones (Negative) Urine Blood (Negative) Urine Nitrite (Negative) Urine Bilirubin (Negative) Urine Urobilinogen (<2.0) mg/dL Ur Leukocyte Esterase (Negative) Urine RBC (0-5) /hpf Urine WBC (0-5) /hpf Ur Squamous Epith Cells (0-4) /hpf Urine Bacteria (None) /hpf Hyaline Casts (0-2) /lpf Urine Mucus (None) /hpf Urine HCG, Qual (Not Detectd) - Radiology Data Radiology results: report reviewed, image reviewed Transvaginal ultrasound was obtained. Report was reviewed in its entirety. Impression per Dr. Pérez is there are several small cervical cyst. No adnexal mass or free fluid. No evidence of uterine solid mass. Disposition Clinical Impression: UTI (urinary tract infection), Abdominal pain Disposition: HOME SELF-CARE Condition: Stable Instructions (If sedation given, give patient instructions): Urinary Tract Infection in Women (ED) Additional Instructions: Take antibiotic as directed. May alternate Tylenol and Motrin if needed for discomfort. Follow-up with your PCP for recheck in 1-2 days. Return to the emergency department with any new, worsening, or concerning symptoms. Prescriptions: Cephalexin [Keflex] 500 mg PO Q12HR 7 Days #14 cap Is patient prescribed a controlled substance at d/c from ED?: No Referrals: None,Stated [Primary Care Provider] - 1-2 days Time of Disposition: 01:02
[2021-12-14 23:46] LABS: Basophils # (A) 0.1 k/uL (0-0.2); Basophils % (A) 0 %; Eosinophils # (A) 0.5 k/uL (0-0.7); Eosinophils % (A) 4 %; HCT 41.3 % (34.0-46.0); HGB 13.4 gm/dL (11.4-16.0); Lymphocytes # (A) 2.3 k/uL (1.0-4.8); Lymphocytes % (A) 19 %; MCH 28.2 pg (25.0-35.0); MCHC 32.4 g/dL (31.0-37.0); Mean Platelet Volume 8.1; Monocytes # (A) 0.7 k/uL (0-1.0); Monocytes % (A) 6 %; Neutrophils # (A) 8.3 k/uL (1.3-7.7); Neutrophils % (A) 69 %; Platelet Count 297 k/uL (150-450); RBC 4.75 m/uL (3.80-5.40); RDW 12.5 % (11.5-15.5)
[2021-12-15] LABS: ALT 17 U/L (4-34); AST 22 U/L (14-36); African American GFR (CKD) >90 (>60 ml/min/1.73 sqM); Albumin 3.7 g/dL (3.5-5.0); Alkaline Phosphatase 54 U/L (38-126); Anion Gap 9 mmol/L; Blood Urea Nitrogen 16 mg/dL (7-17); Calcium 8.7 mg/dL (8.4-10.2); Carbon Dioxide 24 mmol/L (22-30); Chloride 102 mmol/L (98-107); Glucose 98 mg/dL (74-99); Lipase 87 U/L (23-300); Non-African American GFR(CKD) >90 (>60 ml/min/1.73 sqM); Potassium 4.4 mmol/L (3.5-5.1); Sodium 135 mmol/L (137-145); Total Bilirubin 0.5 mg/dL (0.2-1.3); Total Protein 6.6 g/dL (6.3-8.2)
--- NOTE | 2021-12-15 00:05 | US ---
EXAMINATION TYPE: US transvaginal DATE OF EXAM: 12/14/2021 COMPARISON: Ct 09/03/21 CLINICAL HISTORY: lower abdominal pain, pelvic discomfort. Patient states she is having pelvic pain TECHNIQUE: Transvaginal (TV). Date of LMP: 12/04/21 EXAM MEASUREMENTS: Uterus: 10.6 x 4.6 x 5.6 cm Endometrial Stripe: 0.83 cm Right Ovary: 2.8 x 2.5 x 3.1 cm Left Ovary: 3.6 x 1.9 x 1.5 cm 1. Uterus: Anteverted Appears somewhat heterogenous 2. Endometrium: limited visualization; appears wnl 3. Right Ovary: appears wnl 4. Left Ovary: appears wnl 5. Bilateral Adnexa: Excessive bowel and bowel gas 6. Posterior cul-de-sac: wnl IMPRESSION: There are small cervical cysts. No adnexal mass or free fluid. No evidence of uterine solid mass.
[2021-12-15 00:10] LABS: Appearance,Urine Cloudy (Clear); Bacteria,Urine Rare /hpf; Bilirubin,Urine Negative (Negative); Blood,Urine Large (Negative); Color,Urine Yellow; Glucose,Urine (UA) Negative (Negative); Hyaline Casts,Urine 3 /lpf (0-2); Ketones,Urine Negative (Negative); Leukocyte Esterase,Urine Moderate (Negative); Mucus,Urine Few /hpf; Nitrite,Urine Negative (Negative); Protein,Urine Negative (Negative); RBC,Urine 45 /hpf (0-5); Specific Gravity,Urine 1.024 (1.001-1.035); Squamous Epithelial Cell,Urine 3 /hpf (0-4); Urobilinogen,Urine <2.0 mg/dL (<2.0); WBC,Urine 38 /hpf (0-5)
[2021-12-15 00:11] VITALS: BP 135/92; PULSE 89; RESP 15
[2021-12-15] MEDS ORDERED: CEPHALEXIN 500 MG CAP PO STA (00:59)
== END 2021-12-15 01:15 | disposition home or self-care (01) ==
LOC: EC 19:27
DX: N39.0 Urinary tract infection, site not specified (principal); J45.909 Unspecified asthma, uncomplicated; I10 Essential (primary) hypertension; E07.9 Disorder of thyroid, unspecified; F41.9 Anxiety disorder, unspecified; F90.9 Attention-deficit hyperactivity disorder, unspecified type; Z88.5 Allergy status to narcotic agent; Z86.73 Personal history of transient ischemic attack (TIA), and cerebral infarction without residual deficits; Z87.442 Personal history of urinary calculi; Z90.49 Acquired absence of other specified parts of digestive tract; Z98.51 Tubal ligation status
CPT/HCPCS: 99284; 96374; 96361; 36415; 80053; 83690; 85025; 81001; 81025; 87086; 76830; J1885

== ENCOUNTER 2021-12-23 00:19 | Emergency (ER) | payer MEDICARE, OTHER ==
[2021-12-23 00:26] VITALS: TEMP 98.6
[2021-12-23] MEDS ORDERED: LORazepam 1 MG TAB PO STA (04:30)
--- NOTE | 2021-12-23 04:31 | ED ---
Seizure HPI - General Chief Complaint: Seizure Stated Complaint: seizure Time Seen by Provider: 12/23/21 03:27 Source: patient, RN notes reviewed, old records reviewed Mode of arrival: ambulatory Limitations: no limitations - History of Present Illness Initial Comments: This is a 5-year-old female to the emergency department for evaluation. Patient presents today for evaluation regards to seizure. History of epilepsy. States she takes all medications as prescribed. Denying recent drug or alcohol abuse. No trauma. No fevers. Patient had seizure prior to arrival witnessed. No injuries. Patient is currently without complaint MD Complaint: seizure -: minutes(s) Description of Episode: loss of consciousness, tonic-clonic movement, post-event confusion -: second(s) Witnessed: yes - by bystander Trauma: Yes Seizure History: known seizure disorder Place: home Possible Precipitating Event: none Associated Symptoms: denies other symptoms Treatments Prior to Arrival: none - Related Data Home Medications Medication Instructions Recorded Confirmed No Known Home Medications 01/06/22 01/06/22 Allergies Allergy/AdvReac Type Severity Reaction Status Date / Time Iodinated Contrast Media Allergy Rash/Hives Verified 01/06/22 20:31 [Iodinated Contrast Media - IV Dye] iodine Allergy Rash/Hives Verified 01/06/22 20:31 Iodine and Iodide Containing Allergy Rash/Hives Verified 01/06/22 20:31 Produc bupropion HCl AdvReac Unknown Homicidal Verified 01/06/22 20:31 [From Wellbutrin] Ideation aspirin AdvReac Nausea & Verified 01/06/22 20:31 Vomiting hydromorphone HCl AdvReac Diarrhea Verified 01/06/22 20:31 [From Dilaudid] propoxyphene napsylate AdvReac Nausea & Verified 01/06/22 20:31 [From Darvocet-N] Vomiting steroids Allergy Rash/Hives Uncoded 01/06/22 20:31 Review of Systems ROS Statement: Those systems with pertinent positive or pertinent negative responses have been documented in the HPI. ROS Other: All systems not noted in ROS Statement are negative. Past Medical History Past Medical History: Asthma, CVA/TIA, Hypertension, Seizure Disorder, Thyroid Disorder Additional Past Medical History / Comment(s): 11/2017 TIA or CVA (pt unsure) with resolved L sided weakness/aphasia but states still has short term memory loss, last seizure in 2017, frequent kidney infections, kidney stones she passed on her own, chronic cervical and low back pain, past fractured coccyx, gestational diabetes. History of Any Multi-Drug Resistant Organisms: MRSA Date of last positivie culture/infection: 1999,2013, 2016 MDRO Source:: right leg Past Surgical History: Appendectomy, Section, Cholecystectomy, Tonsillectomy, Tubal Ligation Additional Past Surgical History / Comment(s): Multiple ear surgeries (x15 left ear & 13 right ear) ended up with eardrum replacements, x2 Past Anesthesia/Blood Transfusion Reactions: No Reported Reaction Additional Past Anesthesia/Blood Transfusion Reaction / Comment(s): PT STATES DIFFICULTY WAKING UP. PTS FATHER ALSO HAS DIFFICULTY WAKING UP. Past Psychological History: ADD/ADHD, Anxiety Smoking Status: Never smoker Past Alcohol Use History: None Reported Past Drug Use History: None Reported - Past Family History Mother Family Medical History: Cancer Additional Family Medical History / Comment(s): KIDNEY CANCER- in 2012 at the age of 68yrs. Father Family Medical History: CVA/TIA, Myocardial Infarction ([place]) Additional Family Medical History / Comment(s): Father had 8 CVAs and 2 MIs. His first [place] was at age 69yrs and 2nd [place] was at age 71yrs. He has a pacemaker. He is dyslexic. General Exam Limitations: no limitations General appearance: alert, in no apparent distress Head exam: Present: atraumatic, normocephalic, normal inspection Eye exam: Present: normal appearance, PERRL, EOMI. Absent: scleral icterus, conjunctival injection, periorbital swelling ENT exam: Present: normal exam, mucous membranes moist Neck exam: Present: normal inspection. Absent: tenderness, meningismus, lymphadenopathy Respiratory exam: Present: normal lung sounds bilaterally. Absent: respiratory distress, wheezes, rales, rhonchi, stridor Cardiovascular Exam: Present: regular rate, normal rhythm, normal heart sounds. Absent: systolic murmur, diastolic murmur, rubs, gallop, clicks GI/Abdominal exam: Present: soft, normal bowel sounds. Absent: distended, tenderness, guarding, rebound, rigid Extremities exam: Present: normal inspection, full ROM, normal capillary refill. Absent: tenderness, pedal edema, joint swelling, calf tenderness Back exam: Present: normal inspection Neurological exam: Present: alert, oriented X3, CN II-XII intact Psychiatric exam: Present: normal affect, normal mood Skin exam: Present: warm, dry, intact, normal color. Absent: rash Course Vital Signs 12/23/21 12/23/21 00:23 04:53 Temperature 98.6 F Pulse Rate 78 80 Respiratory 18 16 Rate Blood Pressure 163/97 158/66 O2 Sat by Pulse 100 96 Oximetry - Reevaluation(s) Reevaluation #1: 12/23/21 Medical record is reviewed Patient symptoms are improved here in the emergency department Patient informed results questions answered Reevaluation #2: Patient states she feels well does not want further testing Medical Decision Making - Medical Decision Making 41-year-old female to the emergency department with seizure. Patient has recurrent seizure here in the emergency department. Patient's able take medications as prescribed, patient informed of results questions answered patient acting appropriately with no complaints Disposition Clinical Impression: Epileptic seizure, generalized, Anxiety Disposition: HOME SELF-CARE Condition: Good Instructions (If sedation given, give patient instructions): Seizure/Epilepsy Discharge Instructions & Follow-Up, Recurrent Seizures in Adults (ED) Is patient prescribed a controlled substance at d/c from ED?: No Referrals: None,Stated [Primary Care Provider] - 1-2 days
[2021-12-23 04:54] VITALS: BP 158/66; PULSE 80; RESP 16
== END 2021-12-23 05:03 | disposition home or self-care (01) ==
LOC: EC 00:19
DX: G40.409 Other generalized epilepsy and epileptic syndromes, not intractable, without status epilepticus (principal); F41.9 Anxiety disorder, unspecified; I10 Essential (primary) hypertension; J45.909 Unspecified asthma, uncomplicated; Z86.73 Personal history of transient ischemic attack (TIA), and cerebral infarction without residual deficits
CPT/HCPCS: 99283

== ENCOUNTER 2022-01-06 16:29 | Emergency (ER) | payer MEDICARE, OTHER ==
[2022-01-06 17:15] VITALS: RESP 16; TEMP 97.9
--- NOTE | 2022-01-06 17:45 | XR ---
EXAMINATION TYPE: XR chest 2V DATE OF EXAM: 01/06/2022 COMPARISON: 10/31/2021 HISTORY: Chest pain TECHNIQUE: FINDINGS: Heart and mediastinum are normal. Lungs are clear. Diaphragm is normal. Bony thorax appears normal. IMPRESSION: Chest. No change.
--- NOTE | 2022-01-06 18:58 | ED ---
Chest Pain HPI - General Chief Complaint: Chest Pain Stated Complaint: Chest Pain, Dizziness Time Seen by Provider: 01/06/22 18:57 Source: patient Mode of arrival: wheelchair Limitations: no limitations - History of Present Illness Initial Comments: Christy is a 41-year-old female with history of seizure disorder with no seizures and multiple years as well as history of reported TIAs that she is currently not medicated as neurology recommended no medications for her previous episodes. Patient presents the ER today complaining of left-sided chest dis comfort that began yesterday while watching TV. Pain has no exacerbating or relieving factors. There is no associated diaphoresis or shortness of breath. Patient does report feeling lightheaded. - Related Data Home Medications Medication Instructions Recorded Confirmed No Known Home Medications 01/06/22 01/06/22 Allergies Allergy/AdvReac Type Severity Reaction Status Date / Time Iodinated Contrast Media Allergy Rash/Hives Verified 01/06/22 20:31 [Iodinated Contrast Media - IV Dye] iodine Allergy Rash/Hives Verified 01/06/22 20:31 Iodine and Iodide Containing Allergy Rash/Hives Verified 01/06/22 20:31 Produc bupropion HCl AdvReac Unknown Homicidal Verified 01/06/22 20:31 [From Wellbutrin] Ideation aspirin AdvReac Nausea & Verified 01/06/22 20:31 Vomiting hydromorphone HCl AdvReac Diarrhea Verified 01/06/22 20:31 [From Dilaudid] propoxyphene napsylate AdvReac Nausea & Verified 01/06/22 20:31 [From Darvocet-N] Vomiting steroids Allergy Rash/Hives Uncoded 01/06/22 20:31 Review of Systems ROS Statement: Those systems with pertinent positive or pertinent negative responses have been documented in the HPI. ROS Other: All systems not noted in ROS Statement are negative. EKG Findings - EKG Comments: EKG Findings:: EKG was obtained due to complaint of chest pain, EKG was obtained and 17 rate is 72 regular sinus normal axis, normal intervals, OK 153, QRS 102, QTc 384 there are no acute ST elevations or depressions no evidence of ischemia or infarction Past Medical History Past Medical History: Asthma, CVA/TIA, Hypertension, Seizure Disorder, Thyroid Disorder Additional Past Medical History / Comment(s): 11/2017 TIA or CVA (pt unsure) with resolved L sided weakness/aphasia but states still has short term memory loss, last seizure in 2017, frequent kidney infections, kidney stones she passed on her own, chronic cervical and low back pain, past fractured coccyx, gestational diabetes. History of Any Multi-Drug Resistant Organisms: MRSA Date of last positivie culture/infection: 1999,2013, 2016 MDRO Source:: right leg Past Surgical History: Appendectomy, Section, Cholecystectomy, Tonsillectomy, Tubal Ligation Additional Past Surgical History / Comment(s): Multiple ear surgeries (x15 left ear & 13 right ear) ended up with eardrum replacements, x2 Past Anesthesia/Blood Transfusion Reactions: No Reported Reaction Additional Past Anesthesia/Blood Transfusion Reaction / Comment(s): PT STATES DIFFICULTY WAKING UP. PTS FATHER ALSO HAS DIFFICULTY WAKING UP. Past Psychological History: ADD/ADHD, Anxiety Smoking Status: Never smoker Past Alcohol Use History: None Reported Past Drug Use History: None Reported - Past Family History Mother Family Medical History: Cancer Additional Family Medical History / Comment(s): KIDNEY CANCER- in 2012 at the age of 68yrs. Father Family Medical History: CVA/TIA, Myocardial Infarction ([place]) Additional Family Medical History / Comment(s): Father had 8 CVAs and 2 MIs. His first [place] was at age 69yrs and 2nd [place] was at age 71yrs. He has a pacemaker. He is dyslexic. General Exam - General Exam Comments Initial Comments: Physical Exam GENERAL: Patient is well-developed and well-nourished. Patient is nontoxic and well- hydrated and is in no distress. HENT: Normocephalic, Atraumatic. EYES: PERRL, EOMI PULMONARY: Unlabored respirations. No audible rales rhonchi or wheezing was noted. CARDIOVASCULAR: There is a regular rate and rhythm without any murmurs gallops or rubs. ABDOMEN: Soft and nontender with normal bowel sounds. SKIN: Skin is clear with no lesions or rashes and otherwise unremarkable. : Deferred NEUROLOGIC: Patient is alert and oriented x3. Moving all extremities spontaneously MUSCULOSKELETAL: Normal extremities with adequate strength and full range of motion. No lower extremity swelling or edema. No calf tenderness. PSYCHIATRIC: Normal psychiatric evaluation. Limitations: no limitations Course Vital Signs 01/06/22 01/06/22 01/06/22 17:12 18:53 20:12 Temperature 97.9 F Pulse Rate 78 71 Pulse Rate [ 75 [employer] Taper ] Respiratory 16 16 Rate Blood Pressure 116/79 132/88 O2 Sat by Pulse 96 100 Oximetry Disposition Clinical Impression: Atypical chest pain Disposition: HOME SELF-CARE Condition: Stable Instructions (If sedation given, give patient instructions): Chest Pain (ED) Is patient prescribed a controlled substance at d/c from ED?: No Referrals: None,Stated [Primary Care Provider] - 1-2 days
[2022-01-06 19:45] LABS: ALT 21 U/L (4-34); AST 21 U/L (14-36); African American GFR (CKD) >90 (>60 ml/min/1.73 sqM); Albumin 3.7 g/dL (3.5-5.0); Alkaline Phosphatase 70 U/L (38-126); Anion Gap 6 mmol/L; Blood Urea Nitrogen 12 mg/dL (7-17); Calcium 8.7 mg/dL (8.4-10.2); Carbon Dioxide 28 mmol/L (22-30); Chloride 103 mmol/L (98-107); Glucose 102 mg/dL (74-99); Non-African American GFR(CKD) >90 (>60 ml/min/1.73 sqM); Potassium 4.4 mmol/L (3.5-5.1); Sodium 137 mmol/L (137-145); Total Bilirubin 0.3 mg/dL (0.2-1.3); Total Protein 6.8 g/dL (6.3-8.2)
[2022-01-06] MEDS ORDERED: MAG HYDROX/AL HYDROX/SIMETH 30 ML, HYOSCYAMINE ELIXIR 10 ML, LIDOCAINE VISCOUS 2% 10 ML PO STA ×3 (19:45)
[2022-01-06 20:05] LABS: Basophils # (A) 0.1 k/uL (0-0.2); Basophils % (A) 0 %; Eosinophils # (A) 0.3 k/uL (0-0.7); Eosinophils % (A) 2 %; HCT 42.9 % (34.0-46.0); HGB 13.9 gm/dL (11.4-16.0); Lymphocytes # (A) 1.8 k/uL (1.0-4.8); Lymphocytes % (A) 14 %; MCH 27.9 pg (25.0-35.0); MCHC 32.4 g/dL (31.0-37.0); MCV 86.1 fL (80.0-100.0); Monocytes # (A) 0.5 k/uL (0-1.0); Monocytes % (A) 4 %; Neutrophils # (A) 9.5 k/uL (1.3-7.7); Neutrophils % (A) 78 %; Platelet Count 364 k/uL (150-450); RBC 4.98 m/uL (3.80-5.40); WBC 12.2 k/uL (3.8-10.6)
[2022-01-06 20:07] LABS: INR 0.9 (<1.2); Partial Thromboplastin Time 24.2 sec (22.0-30.0); Prothrombin Time 9.7 sec (9.0-12.0)
[2022-01-06 20:13] VITALS: BP 132/88; PULSE 71
== END 2022-01-06 21:17 | disposition home or self-care (01) ==
LOC: EC 16:29
DX: R07.89 Other chest pain (principal); I10 Essential (primary) hypertension
CPT/HCPCS: 36415; 71046; 80053; 84484; 85025; 85610; 85730; 93005; 99285

== ENCOUNTER 2022-02-06 21:12 | Emergency (ER) | payer MEDICARE, OTHER ==
[2022-02-06 22:05] VITALS: BP 156/89; PULSE 72; RESP 16; TEMP 98.1
[2022-02-07] MEDS ORDERED: ALBUTEROL NEBULIZED 2.5 MG/3 ML INHALATION STA (00:15)
--- NOTE | 2022-02-07 00:18 | ED ---
URI HPI - General Chief Complaint: Upper Respiratory Infection Stated Complaint: Sore Throat/Chest Pain Time Seen by Provider: 02/06/22 23:44 Source: patient Mode of arrival: ambulatory Limitations: no limitations - History of Present Illness MD Complaint: cough, rhinorrhea, nasal congestion Onset/Timin -: days(s) Consistency: constant Improves With: nothing Worsens With: nothing Context: sick contacts Associated Symptoms: rhinorrhea, nasal congestion, sore throat, cough - Related Data Previous Rx's Medication Instructions Recorded Albuterol Inhaler [Ventolin Hfa 2 puff INHALATION Q4HR PRN #8 gm 02/07/22 Inhaler] predniSONE [Deltasone] 20 mg PO BID #8 tab 02/07/22 Allergies Allergy/AdvReac Type Severity Reaction Status Date / Time Iodinated Contrast Media Allergy Rash/Hives Verified 02/06/22 22:05 [Iodinated Contrast Media - IV Dye] iodine Allergy Rash/Hives Verified 02/06/22 22:05 Iodine and Iodide Containing Allergy Rash/Hives Verified 02/06/22 22:05 Produc bupropion HCl AdvReac Unknown Homicidal Verified 02/06/22 22:05 [From Wellbutrin] Ideation aspirin AdvReac Nausea & Verified 02/06/22 22:05 Vomiting hydromorphone HCl AdvReac Diarrhea Verified 02/06/22 22:05 [From Dilaudid] propoxyphene napsylate AdvReac Nausea & Verified 02/06/22 22:05 [From Darvocet-N] Vomiting steroids Allergy Rash/Hives Uncoded 02/06/22 22:05 Review of Systems ROS Statement: Those systems with pertinent positive or pertinent negative responses have been documented in the HPI. ROS Other: All systems not noted in ROS Statement are negative. Constitutional: Denies: fever, chills ENT: Reports: throat pain, congestion. Denies: ear pain, hearing loss Respiratory: Reports: cough. Denies: dyspnea, wheezes, hemoptysis Cardiovascular: Denies: chest pain Gastrointestinal: Denies: abdominal pain, vomiting, diarrhea Genitourinary: Denies: dysuria, hematuria Musculoskeletal: Denies: back pain Skin: Denies: rash Neurological: Denies: headache, weakness Past Medical History Past Medical History: Asthma, CVA/TIA, Hypertension, Seizure Disorder, Thyroid Disorder Additional Past Medical History / Comment(s): 11/2017 TIA or CVA (pt unsure) with resolved L sided weakness/aphasia but states still has short term memory loss, last seizure in 2017, frequent kidney infections, kidney stones she passed on her own, chronic cervical and low back pain, past fractured coccyx, gestational diabetes. History of Any Multi-Drug Resistant Organisms: MRSA Date of last positivie culture/infection: 1999,2013, 2016 MDRO Source:: right leg Past Surgical History: Appendectomy, Section, Cholecystectomy, Tonsillectomy, Tubal Ligation Additional Past Surgical History / Comment(s): Multiple ear surgeries (x15 left ear & 13 right ear) ended up with eardrum replacements, x2 Past Anesthesia/Blood Transfusion Reactions: No Reported Reaction Additional Past Anesthesia/Blood Transfusion Reaction / Comment(s): PT STATES DIFFICULTY WAKING UP. PTS FATHER ALSO HAS DIFFICULTY WAKING UP. Past Psychological History: ADD/ADHD, Anxiety Smoking Status: Never smoker Past Alcohol Use History: None Reported Past Drug Use History: None Reported - Past Family History Mother Family Medical History: Cancer Additional Family Medical History / Comment(s): KIDNEY CANCER- in 2012 at the age of 68yrs. Father Family Medical History: CVA/TIA, Myocardial Infarction ([place]) Additional Family Medical History / Comment(s): Father had 8 CVAs and 2 MIs. His first KS was at age 69yrs and 2nd KS was at age 71yrs. He has a pacemaker. He is dyslexic. General Exam Limitations: no limitations General appearance: alert, in no apparent distress Head exam: Present: atraumatic, normocephalic Eye exam: Present: normal appearance. Absent: scleral icterus, conjunctival injection Neck exam: Present: normal inspection, full ROM. Absent: meningismus Respiratory exam: Present: wheezes. Absent: respiratory distress, rales, rhonchi, stridor Cardiovascular Exam: Present: regular rate, normal rhythm, normal heart sounds. Absent: systolic murmur, diastolic murmur, rubs, gallop GI/Abdominal exam: Present: soft. Absent: distended, tenderness, guarding, rebound, rigid, mass Extremities exam: Present: normal inspection, normal capillary refill. Absent: pedal edema, calf tenderness Back exam: Present: normal inspection. Absent: CVA tenderness (R), CVA tenderness (L) Neurological exam: Present: alert Skin exam: Present: warm, dry, intact, normal color Course Vital Signs 02/06/22 22:00 Temperature 98.1 F Pulse Rate 72 Respiratory 16 Rate Blood Pressure 156/89 O2 Sat by Pulse 100 Oximetry Medical Decision Making - Lab Data Lab Results 02/07/22 02/07/22 Range/Units 00:27 00:27 Coronavirus (PCR) Not Detected (Not Detectd) Influenza Type A RNA Not Detected (Not Detectd) Influenza Type B (PCR) Not Detected (Not Detectd) Disposition Clinical Impression: Bronchitis Disposition: HOME SELF-CARE Condition: Good Instructions (If sedation given, give patient instructions): Acute Bronchitis (ED) Prescriptions: predniSONE [Deltasone] 20 mg PO BID #8 tab Albuterol Inhaler [Ventolin Hfa Inhaler] 2 puff INHALATION Q4HR PRN #8 gm PRN Reason: Wheezing Is patient prescribed a controlled substance at d/c from ED?: No Referrals: None,Stated [Primary Care Provider] - 1-2 days
--- NOTE | 2022-02-07 00:38 | XR ---
EXAMINATION TYPE: XR chest 2V DATE OF EXAM: 02/07/2022 COMPARISON: 01/06/2022 HISTORY: Cough TECHNIQUE: 2 views FINDINGS: Heart and mediastinum are normal. Lungs are clear. Diaphragm is normal. Bony thorax is inta ct. IMPRESSION: Normal chest. No change.
[2022-02-07] MEDS ORDERED: ALBUTEROL HFA INHALER INHALATION STA (01:05)
== END 2022-02-07 01:50 | disposition home or self-care (01) ==
LOC: EC 21:12
DX: J40 Bronchitis, not specified as acute or chronic (principal); Z20.822 Contact with and (suspected) exposure to COVID-19; I10 Essential (primary) hypertension
CPT/HCPCS: 71046; 87502; 87635; 94640; 99283

== ENCOUNTER 2022-02-13 17:15 | Emergency (ER) | payer MEDICARE, OTHER ==
[2022-02-13 18:16] LABS: Basophils % (A) 0 %; Eosinophils # (A) 0.3 k/uL (0-0.7); Eosinophils % (A) 3 %; HCT 41.4 % (34.0-46.0); HGB 13.6 gm/dL (11.4-16.0); Lymphocytes # (A) 1.9 k/uL (1.0-4.8); Lymphocytes % (A) 17 %; MCH 27.9 pg (25.0-35.0); MCHC 32.9 g/dL (31.0-37.0); MCV 84.8 fL (80.0-100.0); Mean Platelet Volume 7.7; Monocytes # (A) 0.4 k/uL (0-1.0); Monocytes % (A) 4 %; Neutrophils # (A) 8.2 k/uL (1.3-7.7); Neutrophils % (A) 75 %; Platelet Count 363 k/uL (150-450); RBC 4.88 m/uL (3.80-5.40); RDW 12.9 % (11.5-15.5); WBC 10.9 k/uL (3.8-10.6)
[2022-02-13 18:25] LABS: INR 0.9 (<1.2); Prothrombin Time 10.1 sec (9.0-12.0)
[2022-02-13 18:29] LABS: ALT 17 U/L (4-34); AST 17 U/L (14-36); African American GFR (CKD) >90 (>60 ml/min/1.73 sqM); Albumin 3.8 g/dL (3.5-5.0); Alkaline Phosphatase 58 U/L (38-126); Anion Gap 6 mmol/L; Blood Urea Nitrogen 13 mg/dL (7-17); Calcium 8.8 mg/dL (8.4-10.2); Carbon Dioxide 27 mmol/L (22-30); Chloride 104 mmol/L (98-107); Glucose 146 mg/dL (74-99); Non-African American GFR(CKD) >90 (>60 ml/min/1.73 sqM); Potassium 4.4 mmol/L (3.5-5.1); Sodium 137 mmol/L (137-145); Total Bilirubin 0.2 mg/dL (0.2-1.3); Total Protein 6.5 g/dL (6.3-8.2)
--- NOTE | 2022-02-13 18:35 | CT ---
EXAMINATION TYPE: CT brain wo con DATE OF EXAM: 02/13/2022 COMPARISON: 05/27/2021 and prior HISTORY: weakness, hx of TIA CT DLP: 1150.4 mGycm. Automated Exposure Control for Dose Reduction was Utilized. TECHNIQUE: CT scan of the head is performed without contrast. FINDINGS: There is no acute intracranial hemorrhage, mass effect, or midline shift identified. The ventricles and sulci are within normal limits in size. The globes are intact. The visualized sinuse s demonstrate moderate mucosal thickening of the bilateral maxillary sinuses. IMPRESSION: No acute intracranial abnormality.
--- NOTE | 2022-02-13 21:55 | ED ---
Weakness HPI - General Chief complaint: Neuro Symptoms/Deficit Stated complaint: Left side weakness Time Seen by Provider: 02/13/22 21:47 Source: patient, RN notes reviewed, old records reviewed Mode of arrival: wheelchair Limitations: physical limitation - History of Present Illness Initial comments: This is a 41-year-old female DF for evaluation. Patient Dese for evaluation regards to left hand and left leg numbness and tingling. She has history of TIA with both similar symptoms in the past. Patient does take daily aspirin. No high blood pressure high cholesterol and borderline diabetic. Patient has no recent trauma no neck pain no headache. No other significant complaints MD Complaint: numbness, tingling -: hour(s) (12) Location: L hand, LLE Severity: mild Severity scale (1-10): 3 Quality: tingling, numbness Consistency: constant Improves with: none Context: history of similar Associated Symptoms: denies other symptoms - Related Data Previous Rx's Medication Instructions Recorded Albuterol Inhaler [Ventolin Hfa 2 puff INHALATION Q4HR PRN #8 gm 02/07/22 Inhaler] predniSONE [Deltasone] 20 mg PO BID #8 tab 02/07/22 Allergies Allergy/AdvReac Type Severity Reaction Status Date / Time Iodinated Contrast Media Allergy Rash/Hives Verified 02/13/22 17:33 [Iodinated Contrast Media - IV Dye] iodine Allergy Rash/Hives Verified 02/13/22 17:33 Iodine and Iodide Containing Allergy Rash/Hives Verified 02/13/22 17:33 Produc bupropion HCl AdvReac Unknown Homicidal Verified 02/13/22 17:33 [From Wellbutrin] Ideation aspirin AdvReac Nausea & Verified 02/13/22 17:33 Vomiting hydromorphone HCl AdvReac Diarrhea Verified 02/13/22 17:33 [From Dilaudid] propoxyphene napsylate AdvReac Nausea & Verified 02/13/22 17:33 [From Darvocet-N] Vomiting steroids Allergy Rash/Hives Uncoded 02/13/22 17:33 Review of Systems ROS Statement: Those systems with pertinent positive or pertinent negative responses have been documented in the HPI. ROS Other: All systems not noted in ROS Statement are negative. Past Medical History Past Medical History: Asthma, CVA/TIA, Hypertension, Seizure Disorder, Thyroid Disorder Additional Past Medical History / Comment(s): 11/2017 TIA or CVA (pt unsure) with resolved L sided weakness/aphasia but states still has short term memory loss, last seizure in 2017, frequent kidney infections, kidney stones she passed on her own, chronic cervical and low back pain, past fractured coccyx, gestational diabetes. History of Any Multi-Drug Resistant Organisms: MRSA Date of last positivie culture/infection: 1999,2013, 2016 MDRO Source:: right leg Past Surgical History: Appendectomy, Section, Cholecystectomy, Tonsillectomy, Tubal Ligation Additional Past Surgical History / Comment(s): Multiple ear surgeries (x15 left ear & 13 right ear) ended up with eardrum replacements, x2 Past Anesthesia/Blood Transfusion Reactions: No Reported Reaction Additional Past Anesthesia/Blood Transfusion Reaction / Comment(s): PT STATES DIFFICULTY WAKING UP. PTS FATHER ALSO HAS DIFFICULTY WAKING UP. Past Psychological History: ADD/ADHD, Anxiety Smoking Status: Never smoker Past Alcohol Use History: None Reported Past Drug Use History: None Reported - Past Family History Mother Family Medical History: Cancer Additional Family Medical History / Comment(s): KIDNEY CANCER- in 2012 at the age of 68yrs. Father Family Medical History: CVA/TIA, Myocardial Infarction ([place]) Additional Family Medical History / Comment(s): Father had 8 CVAs and 2 MIs. His first ND was at age 69yrs and 2nd ND was at age 71yrs. He has a pacemaker. He is dyslexic. General Exam - General Exam Comments Initial Comments: NIH of 0 Limitations: physical limitation General appearance: alert, in no apparent distress Head exam: Present: atraumatic, normocephalic, normal inspection Eye exam: Present: normal appearance, PERRL, EOMI. Absent: scleral icterus, conjunctival injection, periorbital swelling ENT exam: Present: normal exam, mucous membranes moist Neck exam: Present: normal inspection. Absent: tenderness, meningismus, lymphadenopathy Respiratory exam: Present: normal lung sounds bilaterally. Absent: respiratory distress, wheezes, rales, rhonchi, stridor Cardiovascular Exam: Present: regular rate, normal rhythm, normal heart sounds. Absent: systolic murmur, diastolic murmur, rubs, gallop, clicks GI/Abdominal exam: Present: soft, normal bowel sounds. Absent: distended, ten derness, guarding, rebound, rigid Extremities exam: Present: normal inspection, full ROM, normal capillary refill. Absent: tenderness, pedal edema, joint swelling, calf tenderness Back exam: Present: normal inspection Neurological exam: Present: alert, oriented X3, CN II-XII intact Psychiatric exam: Present: normal affect, normal mood Skin exam: Present: warm, dry, intact, normal color. Absent: rash Course Vital Signs 02/13/22 02/13/22 02/13/22 17:33 21:53 21:55 Temperature 98.1 F 97.9 F Pulse Rate 81 68 68 Respiratory 16 18 18 Rate Blood Pressure 138/83 122/84 122/84 O2 Sat by Pulse 97 99 99 Oximetry - Reevaluation(s) Reevaluation #1: 02/13/22 22:08 Medical records reviewed Reevaluation #2: 02/13/22 22:08 symptoms remained relatively unchanged, patient is asking for a work note Reevaluation #3: 02/13/22 22:08 Patient informed of results and questions answered EKG Findings - EKG Comments: EKG Findings:: EKG shows sinus rhythm 79 CO 171 QRS 102 QTC 386 Medical Decision Making - Medical Decision Making 41 female DF for evaluation of left arm leg paresthesia. No significant neurological deficit. Patient can be discharged home continue taking daily aspirin and return if symptoms worsen - Lab Data Result diagrams: 02/13/22 17:42 02/13/22 17:42 Lab Results 02/13/22 02/13/22 02/13/22 Range/Units 17:42 17:42 17:42 WBC 10.9 H (3.8-10.6) k/uL RBC 4.88 (3.80-5.40) m/uL Hgb 13.6 (11.4-16.0) gm/dL Hct 41.4 (34.0-46.0) % MCV 84.8 (80.0-100.0) fL MCH 27.9 (25.0-35.0) pg MCHC 32.9 (31.0-37.0) g/dL RDW 12.9 (11.5-15.5) % Plt Count 363 (150-450) k/uL MPV 7.7 Neutrophils % 75 % Lymphocytes % 17 % Monocytes % 4 % Eosinophils % 3 % Basophils % 0 % Neutrophils # 8.2 H (1.3-7.7) k/uL Lymphocytes # 1.9 (1.0-4.8) k/uL Monocytes # 0.4 (0-1.0) k/uL Eosinophils # 0.3 (0-0.7) k/uL Basophils # 0.0 (0-0.2) k/uL PT 10.1 (9.0-12.0) sec INR 0.9 (<1.2) Sodium 137 (137-145) mmol/L Potassium 4.4 (3.5-5.1) mmol/L Chloride 104 (98-107) mmol/L Carbon Dioxide 27 (22-30) mmol/L Anion Gap 6 mmol/L BUN 13 (7-17) mg/dL Creatinine 0.71 (0.52-1.04) mg/dL Est GFR (CKD-EPI)AfAm >90 (>60 ml/min/1.73 sqM) Est GFR (CKD-EPI)NonAf >90 (>60 ml/min/1.73 sqM) Glucose 146 H (74-99) mg/dL Calcium 8.8 (8.4-10.2) mg/dL Total Bilirubin 0.2 (0.2-1.3) mg/dL AST 17 (14-36) U/L ALT 17 (4-34) U/L Alkaline Phosphatase 58 (38-126) U/L Troponin I (0.000-0.034) ng/mL Total Protein 6.5 (6.3-8.2) g/dL Albumin 3.8 (3.5-5.0) g/dL 02/13/22 Range/Units 17:42 WBC (3.8-10.6) k/uL RBC (3.80-5.40) m/uL Hgb (11.4-16.0) gm/dL Hct (34.0-46.0) % MCV (80.0-100.0) fL MCH (25.0-35.0) pg MCHC (31.0-37.0) g/dL RDW (11.5-15.5) % Plt Count (150-450) k/uL MPV Neutrophils % % Lymphocytes % % Monocytes % % Eosinophils % % Basophils % % Neutrophils # (1.3-7.7) k/uL Lymphocytes # (1.0-4.8) k/uL Monocytes # (0-1.0) k/uL Eosinophils # (0-0.7) k/uL Basophils # (0-0.2) k/uL PT (9.0-12.0) sec INR (<1.2) Sodium (137-145) mmol/L Potassium (3.5-5.1) mmol/L Chloride (98-107) mmol/L Carbon Dioxide (22-30) mmol/L Anion Gap mmol/L BUN (7-17) mg/dL Creatinine (0.52-1.04) mg/dL Est GFR (CKD-EPI)AfAm (>60 ml/min/1.73 sqM) Est GFR (CKD-EPI)NonAf (>60 ml/min/1.73 sqM) Glucose (74-99) mg/dL Calcium (8.4-10.2) mg/dL Total Bilirubin (0.2-1.3) mg/dL AST (14-36) U/L ALT (4-34) U/L Alkaline Phosphatase (38-126) U/L Troponin I <0.012 (0.000-0.034) ng/mL Total Protein (6.3-8.2) g/dL Albumin (3.5-5.0) g/dL - Radiology Data Radiology results: report reviewed (CT brain negative for acute disease), image reviewed Disposition Clinical Impression: Paresthesia of left arm and leg Disposition: HOME SELF-CARE Condition: Good Instructions (If sedation given, give patient instructions): Paresthesia (ED) Is patient prescribed a controlled substance at d/c from ED?: No Referrals: None,Stated [Primary Care Provider] - 1-2 days
[2022-02-13 21:57] VITALS: BP 122/84; PULSE 68; RESP 18
[2022-02-13 22:03] VITALS: TEMP 97.9
== END 2022-02-13 22:13 | disposition home or self-care (01) ==
LOC: EC 17:15
DX: R20.2 Paresthesia of skin (principal); J45.909 Unspecified asthma, uncomplicated; I10 Essential (primary) hypertension; Z86.73 Personal history of transient ischemic attack (TIA), and cerebral infarction without residual deficits; Z82.49 Family history of ischemic heart disease and other diseases of the circulatory system; Z88.8 Allergy status to other drugs, medicaments and biological substances; Z91.040 Latex allergy status; Z88.5 Allergy status to narcotic agent; Z88.6 Allergy status to analgesic agent
CPT/HCPCS: 36415; 70450; 80053; 84484; 85025; 85610; 93005; 99285

== ENCOUNTER 2022-02-25 13:53 | Emergency (ER) | payer MEDICARE, OTHER ==
[2022-02-25 16:23] VITALS: RESP 16
--- NOTE | 2022-02-25 17:41 | ED ---
General Adult HPI - General Chief complaint: Neuro Symptoms/Deficit Stated complaint: L sided numbness Time Seen by Provider: 02/25/22 16:35 Source: patient Mode of arrival: wheelchair Limitations: no limitations - History of Present Illness Initial comments: Dictation was produced using [employer] dictation software. please excuse any grammatical, word or spelling errors. Chief Complaint: 41-year-old female presents to the emergency department for worsening left sided sensory deficit History of Present Illness: Patient is a 5-year-old female she was seen here in our emergency department approximately 10 days ago for the same issue. Patient is here today for worsening left-sided sensory deficit. She states that her left side feels paresthetic compared to the right side. She was seen here in the emergency department on February 13 for the same complaint. Patient states since then has been persistent. She feels like it slightly worse over the last 36 hours. She has been worked up neurologically with no apparent cause of marcos ent's neurologic issues. She however reports that she has been diagnosed with a transient ischemic attack. The ROS documented in this emergency department record has been reviewed and confirmed by me. Those systems with pertinent positive or negative responses have been documented in the HPI. All other systems are other negative and/or noncontributory. PHYSICAL EXAM: General Impression: Alert and oriented x3, not in acute distress HEENT: Normocephalic atraumatic, extra-ocular movements intact, pupils equal and reactive to light bilaterally, mucous membranes moist. Cardiovascular: Heart regular rate and rhythm Chest: Able to complete full sentences, no retractions, no tachypnea Abdomen: abdomen soft, non-tender, non-distended, no organomegaly Musculoskeletal: Pulses present and equal in all extremities, no peripheral edema Motor: no focal deficits noted Neurological: CN II-XII grossly intact, no focal motor or sensory deficits noted, reported decreased sensation to light touch of the left lower face and left arm and left leg. No other neuro deficits noted. No gait ataxia Skin: Intact with no visualized rashes Psych: Normal affect and mood ED course: 41-year-old female presents to the emergency Department with left arm left leg and left lower face diminished sensation to light touch as upon arrival are within acceptable limits. Neurologic exam is otherwise benign. She is not showing other neurologic features. 7 worked up neurologically in the past with no apparent cause to her issues. EKG interpretation: Ventricular rate 64, sinus rhythm, UT interval 177, QS 11, QTc 460. No UT prolongation, no QTC prolongation, no ST or T-wave changes noted. Overall, this EKG is unremarkable Laboratory evaluation unremarkable. Computed tomography scan of the brain is unchanged. There is no acute intracranial processes. Patient observed in emergency department for 5 hours. Patient reevaluated at 7:00 and found to be stable medical condition. Patient advised to follow-up with neurologist and primary care doctor. - Related Data Previous Rx's Medication Instructions Recorded Albuterol Inhaler [Ventolin Hfa 2 puff INHALATION Q4HR PRN #8 gm 02/07/22 Inhaler] predniSONE [Deltasone] 20 mg PO BID #8 tab 02/07/22 Allergies Allergy/AdvReac Type Severity Reaction Status Date / Time Iodinated Contrast Media Allergy Rash/Hives Verified 02/13/22 17:33 [Iodinated Contrast Media - IV Dye] iodine Allergy Rash/Hives Verified 02/13/22 17:33 Iodine and Iodide Containing Allergy Rash/Hives Verified 02/13/22 17:33 Produc bupropion HCl AdvReac Unknown Homicidal Verified 02/13/22 17:33 [From Wellbutrin] Ideation aspirin AdvReac Nausea & Verified 02/13/22 17:33 Vomiting hydromorphone HCl AdvReac Diarrhea Verified 02/13/22 17:33 [From Dilaudid] propoxyphene napsylate AdvReac Nausea & Verified 02/13/22 17:33 [From Darvocet-N] Vomiting steroids Allergy Rash/Hives Uncoded 02/13/22 17:33 Review of Systems ROS Statement: Those systems with pertinent positive or pertinent negative responses have been documented in the HPI. ROS Other: All systems not noted in ROS Statement are negative. Past Medical History Past Medical History: Asthma, CVA/TIA, Hypertension, Seizure Disorder, Thyroid Disorder Additional Past Medical History / Comment(s): 11/2017 TIA or CVA (pt unsure) with resolved L sided weakness/aphasia but states still has short term memory loss, last seizure in 2016, frequent kidney infections, kidney stones she passed on her own, chronic cervical and low back pain, past fractured coccyx, gestational diabetes. History of Any Multi-Drug Resistant Organisms: MRSA Date of last positivie culture/infection: 1999,2013, 2016 MDRO Source:: right leg Past Surgical History: Appendectomy, Section, Cholecystectomy, Tonsillectomy, Tubal Ligation Additional Past Surgical History / Comment(s): Multiple ear surgeries (x15 left ear & 13 right ear) ended up with eardrum replacements, x2 Past Anesthesia/Blood Transfusion Reactions: No Reported Reaction Additional Past Anesthesia/Blood Transfusion Reaction / Comment(s): PT STATES DIFFICULTY WAKING UP. PTS FATHER ALSO HAS DIFFICULTY WAKING UP. Past Psychological History: ADD/ADHD, Anxiety Smoking Status: Never smoker Past Alcohol Use History: None Reported Past Drug Use History: None Reported - Past Family History Mother Family Medical History: Cancer Additional Family Medical History / Comment(s): KIDNEY CANCER- in 2012 at the age of 68yrs. Father Family Medical History: CVA/TIA, Myocardial Infarction ([place]) Additional Family Medical History / Comment(s): Father had 8 CVAs and 2 MIs. His first SD was at age 69yrs and 2nd SD was at age 71yrs. He has a pacemaker. He is dyslexic. General Exam Limitations: no limitations Course Vital Signs 02/25/22 02/25/22 02/25/22 13:59 16:17 17:48 Temperature 98.0 F Pulse Rate 76 68 67 Respiratory 18 16 16 Rate Blood Pressure 128/79 123/84 122/73 O2 Sat by Pulse 98 98 99 Oximetry Medical Decision Making - Lab Data Result diagrams: 02/25/22 17:50 02/25/22 17:50 Lab Results 02/25/22 02/25/22 Range/Units 17:50 17:50 WBC 12.2 H (3.8-10.6) k/uL RBC 4.40 (3.80-5.40) m/uL Hgb 12.6 (11.4-16.0) gm/dL Hct 37.9 (34.0-46.0) % MCV 86.0 (80.0-100.0) fL MCH 28.5 (25.0-35.0) pg MCHC 33.1 (31.0-37.0) g/dL RDW 13.2 (11.5-15.5) % Plt Count 293 (150-450) k/uL MPV 8.4 Neutrophils % 78 % Lymphocytes % 14 % Monocytes % 3 % Eosinophils % 3 % Basophils % 0 % Neutrophils # 9.6 H (1.3-7.7) k/uL Lymphocytes # 1.7 (1.0-4.8) k/uL Monocytes # 0.4 (0-1.0) k/uL Eosinophils # 0.4 (0-0.7) k/uL Basophils # 0.0 (0-0.2) k/uL Sodium 137 (137-145) mmol/L Potassium 4.3 (3.5-5.1) mmol/L Chloride 103 (98-107) mmol/L Carbon Dioxide 30 (22-30) mmol/L Anion Gap 4 mmol/L BUN 11 (7-17) mg/dL Creatinine 0.69 (0.52-1.04) mg/dL Est GFR (CKD-EPI)AfAm >90 (>60 ml/min/1.73 sqM) Est GFR (CKD-EPI)NonAf >90 (>60 ml/min/1.73 sqM) Glucose 118 H (74-99) mg/dL Calcium 8.5 (8.4-10.2) mg/dL Disposition Clinical Impression: Sensory deficit present Disposition: HOME SELF-CARE Condition: Good Instructions (If sedation given, give patient instructions): Peripheral Neuropathy (ED) Is patient prescribed a controlled substance at d/c from ED?: No Referrals: Nawaf Coon MD [REFERRING] - 1-2 days Yolande Samano MD [REFERRING] - 1-2 days
[2022-02-25 17:58] VITALS: PULSE 67
[2022-02-25 18:00] LABS: Basophils % (A) 0 %; Eosinophils # (A) 0.4 k/uL (0-0.7); Eosinophils % (A) 3 %; HCT 37.9 % (34.0-46.0); HGB 12.6 gm/dL (11.4-16.0); Lymphocytes # (A) 1.7 k/uL (1.0-4.8); Lymphocytes % (A) 14 %; MCH 28.5 pg (25.0-35.0); MCHC 33.1 g/dL (31.0-37.0); Mean Platelet Volume 8.4; Monocytes # (A) 0.4 k/uL (0-1.0); Monocytes % (A) 3 %; Neutrophils # (A) 9.6 k/uL (1.3-7.7); Neutrophils % (A) 78 %; Platelet Count 293 k/uL (150-450); RDW 13.2 % (11.5-15.5); WBC 12.2 k/uL (3.8-10.6)
[2022-02-25 18:08] LABS: African American GFR (CKD) >90 (>60 ml/min/1.73 sqM); Anion Gap 4 mmol/L; Blood Urea Nitrogen 11 mg/dL (7-17); Calcium 8.5 mg/dL (8.4-10.2); Carbon Dioxide 30 mmol/L (22-30); Chloride 103 mmol/L (98-107); Glucose 118 mg/dL (74-99); Non-African American GFR(CKD) >90 (>60 ml/min/1.73 sqM); Potassium 4.3 mmol/L (3.5-5.1); Sodium 137 mmol/L (137-145)
--- NOTE | 2022-02-25 18:59 | CT ---
EXAMINATION TYPE: CT brain wo con CT DLP: 1202.4 mGycm, Automated exposure control for dose reduction was used. DATE OF EXAM: 02/25/2022 6:15 PM COMPARISON: Prior CT Brain from 02/13/2022 CLINICAL INDICATION:Female, 41 years old with history of left sided weakness, LT side weakness in arm TECHNIQUE: Brain: Multiple axial CT images of the brain were obtained without IV contrast. FINDINGS: Brain: Extra-axial spaces: No abnormal extra-axial fluid collections. Ventricular system: Within normal limits Cerebral parenchyma: No acute intraparenchymal hemorrhage or mass effect. The diaz-white junction is well differentiated. Cerebellum: Unremarkable. Mass effect: No evidence of midline shift. Intracranial vasculature: unremarkable Soft tissues: Normal. Calvarium/osseous structures: No depressed skull fracture. Paranasal sinuses and mastoid air cells: Moderate scattered paranasal sinus disease. Visualized orbits: Orbital contents are intact. IMPRESSION: No acute intracranial process.
[2022-02-25 19:16] VITALS: BP 116/93; TEMP 97.8
== END 2022-02-25 19:13 | disposition home or self-care (01) ==
LOC: EC 13:53
DX: F44.6 Conversion disorder with sensory symptom or deficit (principal); I10 Essential (primary) hypertension; J45.909 Unspecified asthma, uncomplicated; G40.909 Epilepsy, unspecified, not intractable, without status epilepticus; Z79.51 Long term (current) use of inhaled steroids; Z86.73 Personal history of transient ischemic attack (TIA), and cerebral infarction without residual deficits
CPT/HCPCS: 36415; 70450; 80048; 85025; 93005; 99284

== ENCOUNTER 2022-03-27 20:00 | Emergency (ER) | payer MEDICARE, OTHER ==
[2022-03-27 20:21] VITALS: RESP 18; TEMP 98.5
[2022-03-27] MEDS ORDERED: KETOROLAC 15 MG/ML 1 ML VIAL IM STA (22:17)
[2022-03-27] MEDS ORDERED: MORPHINE SULFATE 2 MG/ML SYRINGE IM STA (22:17)
--- NOTE | 2022-03-27 22:23 | ED ---
Lower Extremity Injury HPI - General Chief Complaint: Extremity Injury, Lower Stated Complaint: Fall-R leg injury Time Seen by Provider: 03/27/22 22:03 Source: patient, RN notes reviewed Mode of arrival: ambulatory Limitations: no limitations - History of Present Illness Initial Comments: This is a 41-year-old female who presents to the emergency department with right foot pain. Yesterday the patient fell down her stairs and she saw an orthopedic provider at the [facility] where she is an established patient. She was told that she had a small fracture in her right foot and tore several ligaments. States that her pain has continued to progress, and she was told to come to the emergency department if her pain became this severe. She was not given any pain medication on discharge. States that she does have a follow-up appointment with the [facility] next week and they are talking about surgical repair of the ligaments. She is currently in a walking boot, and states that she is "allergic", to the material in casts and splints, and is unable to use them. Patient declines any crutches at this time, and states that she has them at home if she needs them. She is able to ambulate with a walking boot if she walks on her heel. Denies any fevers, chills, sore throat, cough, dyspnea, chest pain, palpitations, abdominal pain, nausea, vomiting, diarrhea, back pain, or headaches. MD Complaint: foot injury Onset/Timin -: days(s) Place: home Worsens With: weight bearing, movement Context: fall - Related Data Previous Rx's Medication Instructions Recorded Albuterol Inhaler [Ventolin Hfa 2 puff INHALATION Q4HR PRN #8 gm 02/07/22 Inhaler] predniSONE [Deltasone] 20 mg PO BID #8 tab 02/07/22 HYDROcodone/APAP 7.5-325MG [[place] 1 tab PO Q6HR PRN 3 Days #12 tab 03/27/22 7.5-325] Allergies Allergy/AdvReac Type Severity Reaction Status Date / Time Iodinated Contrast Media Allergy Rash/Hives Verified 03/27/22 20:21 [Iodinated Contrast Media - IV Dye] iodine Allergy Rash/Hives Verified 03/27/22 20:21 Iodine and Iodide Containing Allergy Rash/Hives Verified 03/27/22 20:21 Produc bupropion HCl AdvReac Unknown Homicidal Verified 03/27/22 20:21 [From Wellbutrin] Ideation aspirin AdvReac Nausea & Verified 03/27/22 20:21 Vomiting hydromorphone HCl AdvReac Diarrhea Verified 03/27/22 20:21 [From Dilaudid] propoxyphene napsylate AdvReac Nausea & Verified 03/27/22 20:21 [From Darvocet-N] Vomiting steroids Allergy Rash/Hives Uncoded 03/27/22 20:21 Review of Systems ROS Statement: Those systems with pertinent positive or pertinent negative responses have been documented in the HPI. ROS Other: All systems not noted in ROS Statement are negative. Past Medical History Past Medical History: Asthma, CVA/TIA, Hypertension, Seizure Disorder, Thyroid Disorder Additional Past Medical History / Comment(s): 11/2017 TIA or CVA (pt unsure) with resolved L sided weakness/aphasia but states still has short term memory loss, last seizure in 2016, frequent kidney infections, kidney stones she passed on her own, chronic cervical and low back pain, past fractured coccyx, gestational diabetes. History of Any Multi-Drug Resistant Organisms: MRSA Date of last positivie culture/infection: 1999,2013, 2016 MDRO Source:: right leg Past Surgical History: Appendectomy, Section, Cholecystectomy, Tonsillectomy, Tubal Ligation Additional Past Surgical History / Comment(s): Multiple ear surgeries (x15 left ear & 13 right ear) ended up with eardrum replacements, x2 Past Anesthesia/Blood Transfusion Reactions: No Reported Reaction Additional Past Anesthesia/Blood Transfusion Reaction / Comment(s): PT STATES DIFFICULTY WAKING UP. PTS FATHER ALSO HAS DIFFICULTY WAKING UP. Past Psychological History: ADD/ADHD, Anxiety Smoking Status: Never smoker Past Alcohol Use History: None Reported Past Drug Use History: None Reported - Past Family History Mother Family Medical History: Cancer Additional Family Medical History / Comment(s): KIDNEY CANCER- in 2012 at the age of 68yrs. Father Family Medical History: CVA/TIA, Myocardial Infarction ([place]) Additional Family Medical History / Comment(s): Father had 8 CVAs and 2 MIs. His first ID was at age 69yrs and 2nd ID was at age 71yrs. He has a pacemaker. He is dyslexic. General Exam Limitations: no limitations General appearance: alert, in distress Respiratory exam: Present: normal lung sounds bilaterally. Absent: respiratory distress, wheezes, rales, rhonchi, stridor Cardiovascular Exam: Present: regular rate, normal rhythm, normal heart sounds. Absent: systolic murmur, diastolic murmur, rubs, gallop, clicks Extremities exam: Present: other (Swelling, tenderness, and ecchymosis over the anterior aspect of the right ankle and the dorsal aspect of the right foot. 2+ dorsalis pedis and tibialis posterior pulses and capillary refill less than 1 second bilaterally.) Neurological exam: Present: alert, oriented X3, CN II-XII intact Psychiatric exam: Present: normal affect, normal mood Skin exam: Present: warm, dry, intact, normal color. Absent: rash Course Vital Signs 03/27/22 03/27/22 20:19 23:52 Temperature 98.5 F Pulse Rate 75 71 Respiratory 18 18 Rate Blood Pressure 142/88 157/81 O2 Sat by Pulse 95 99 Oximetry Medical Decision Making - Medical Decision Making This is a 41-year-old female who presents to the emergency department for an injury to the right ankle. Patient's pain was managed in the emergency department and she was discharged with a 3 day course of [place]. Advised she use this sparingly when the pain is the most severe and to otherwise alternate with Tylenol and ibuprofen. Also instructed her to keep the leg elevated whenever possible and to apply ice for the first 2 days following the injury followed by heat there afterwards. She will follow up with orthopedics as scheduled for further evaluation and possible surgical intervention of the right ankle. Return precautions reviewed in depth, the patient is instructed to return to the emergency department with any new, worsening, or concerning symptoms. Patient verbalized understanding. This case was discussed in detail with the attending ED physician. Presentation, findings, and treatment plan discussed in detail as well. Disposition Clinical Impression: Ligament tear of lower extremity, Foot fracture, right Disposition: HOME SELF-CARE Instructions (If sedation given, give patient instructions): Foot Fracture in Adults (ED) Additional Instructions: Return to the emergency department with any new, worsening, or concerning s ymptoms. Use the [place] sparingly when your pain is the most severe, and avoid driving or operating machinery when taking this. Otherwise, continue taking Tylenol and ibuprofen. Also be sure to keep the foot elevated, apply ice for the rest of the night, and begin applying heat tomorrow. Follow up with orthopedics as instructed. Prescriptions: HYDROcodone/APAP 7.5-325MG [[place] 7.5-325] 1 tab PO Q6HR PRN 3 Days #12 tab PRN Reason: Pain Is patient prescribed a controlled substance at d/c from ED?: Yes When asked, does pt state using other controlled substances?: No If prescribed controlled substance>3 days was MAPS reviewed?: Prescribed <3 Days Referrals: None,Stated [Primary Care Provider] - 1-2 days
[2022-03-27] MEDS ORDERED: ACET/COD 300 MG/30 MG STARTER PACK 6 TAB BTL PO STA (23:11)
[2022-03-27 23:53] VITALS: BP 157/81; PULSE 71
== END 2022-03-27 23:55 | disposition home or self-care (01) ==
LOC: EC 20:00
DX: S92.901A Unspecified fracture of right foot, initial encounter for closed fracture (principal); J45.909 Unspecified asthma, uncomplicated; I10 Essential (primary) hypertension; E07.9 Disorder of thyroid, unspecified; Z86.73 Personal history of transient ischemic attack (TIA), and cerebral infarction without residual deficits; Z79.899 Other long term (current) drug therapy; Z88.8 Allergy status to other drugs, medicaments and biological substances; Z88.2 Allergy status to sulfonamides; Z91.041 Radiographic dye allergy status; W10.9XXA Fall (on) (from) unspecified stairs and steps, initial encounter
CPT/HCPCS: 99283; 96372; J2270; J1885

== ENCOUNTER 2022-05-24 12:43 | Emergency (ER) | payer MEDICARE, OTHER ==
[2022-05-24 12:50] VITALS: BP 124/68; PULSE 65; RESP 18; TEMP 98
--- NOTE | 2022-05-24 13:20 | ED ---
Fall HPI - General Chief Complaint: Fall Stated Complaint: fall knee and back pain Time Seen by Provider: 05/24/22 12:51 Source: patient, RN notes reviewed Mode of arrival: wheelchair Limitations: no limitations - History of Present Illness Initial Comments: 41-year-old female presents emergency Department with chief complaint of fall. Patient states she fell weekend states that she slipped on some steps. Patient injured her right knee, low back. She has any bowel, bladder incontinence or retention or saddle anesthesias. Patient states she is abrasion to her right knee her tetanus is up-to-date. No head injury no loss conscious. Patient states she is able to family but states that it's very painful. Patient has any hip pain no ankle pain. - Related Data Previous Rx's Medication Instructions Recorded Albuterol Inhaler [Ventolin Hfa 2 puff INHALATION Q4HR PRN #8 gm 02/07/22 Inhaler] predniSONE [Deltasone] 20 mg PO BID #8 tab 02/07/22 HYDROcodone/APAP 7.5-325MG [[place] 1 tab PO Q6HR PRN 3 Days #12 tab 03/27/22 7.5-325] Allergies Allergy/AdvReac Type Severity Reaction Status Date / Time Iodinated Contrast Media Allergy Rash/Hives Verified 05/24/22 12:50 [Iodinated Contrast Media - IV Dye] iodine Allergy Rash/Hives Verified 05/24/22 12:50 Iodine and Iodide Containing Allergy Rash/Hives Verified 05/24/22 12:50 Produc bupropion HCl AdvReac Unknown Homicidal Verified 05/24/22 12:50 [From Wellbutrin] Ideation aspirin AdvReac Nausea & Verified 05/24/22 12:50 Vomiting hydromorphone HCl AdvReac Diarrhea Verified 05/24/22 12:50 [From Dilaudid] propoxyphene napsylate AdvReac Nausea & Verified 05/24/22 12:50 [From Darvocet-N] Vomiting steroids Allergy Rash/Hives Uncoded 05/24/22 12:50 Review of Systems ROS Statement: Those systems with pertinent positive or pertinent negative responses have been documented in the HPI. ROS Other: All systems not noted in ROS Statement are negative. Past Medical History Past Medical History: Asthma, CVA/TIA, Hypertension, Seizure Disorder, Thyroid Disorder Additional Past Medical History / Comment(s): 11/2017 TIA or CVA (pt unsure) with resolved L sided weakness/aphasia but states still has short term memory loss, last seizure in 2017, frequent kidney infections, kidney stones she passed on her own, chronic cervical and low back pain, past fractured coccyx, gestational diabetes. History of Any Multi-Drug Resistant Organisms: MRSA Date of last positivie culture/infection: 1999,2013, 2016 MDRO Source:: right leg Past Surgical History: Appendectomy, Section, Cholecystectomy, Tonsillectomy, Tubal Ligation Additional Past Surgical History / Comment(s): Multiple ear surgeries (x15 left ear & 13 right ear) ended up with eardrum replacements, x2 Past Anesthesia/Blood Transfusion Reactions: No Reported Reaction Additional Past Anesthesia/Blood Transfusion Reaction / Comment(s): PT STATES DIFFICULTY WAKING UP. PTS FATHER ALSO HAS DIFFICULTY WAKING UP. Past Psychological History: ADD/ADHD, Anxiety Smoking Status: Never smoker Past Alcohol Use History: None Reported Past Drug Use History: None Reported - Past Family History Mother Family Medical History: Cancer Additional Family Medical History / Comment(s): KIDNEY CANCER- in 2012 at the age of 68yrs. Father Family Medical History: CVA/TIA, Myocardial Infarction ([place]) Additional Family Medical History / Comment(s): Father had 8 CVAs and 2 MIs. His first LA was at age 69yrs and 2nd LA was at age 71yrs. He has a pacemaker. He is dyslexic. General Exam Limitations: no limitations General appearance: alert, in no apparent distress Head exam: Present: atraumatic, normocephalic, normal inspection Eye exam: Present: normal appearance, PERRL, EOMI. Absent: scleral icterus, conjunctival injection, periorbital swelling Neck exam: Present: normal inspection, full ROM. Absent: tenderness, meningismus, lymphadenopathy Respiratory exam: Present: normal lung sounds bilaterally. Absent: respiratory distress, wheezes, rales, rhonchi, stridor Cardiovascular Exam: Present: regular rate, normal rhythm, normal heart sounds. Absent: systolic murmur, diastolic murmur, rubs, gallop, clicks Extremities exam: Present: other (Abrasion to the right knee with mild tenderness no large area of swelling not no ecchymosis for range of motion neurovascular intact) Back exam: Present: full ROM, tenderness, paraspinal tenderness. Absent: CVA tenderness (R), CVA tenderness (L), muscle spasm, vertebral tenderness Neurological exam: Present: alert, oriented X3, CN II-XII intact, reflexes normal. Absent: motor sensory deficit Skin exam: Present: warm, dry, intact, normal color. Absent: rash Course Vital Signs 05/24/22 12:47 Temperature 98.0 F Pulse Rate 65 Respiratory 18 Rate Blood Pressure 124/68 O2 Sat by Pulse 97 Oximetry Medical Decision Making - Medical Decision Making X-ray negative for acute fracture the right knee, upper spine. She has no red flag signs. Patient is able to ambulate. Patient discharged in stable condition. Return parameters were discussed. Disposition Clinical Impression: Fall, Contusion of right knee, Lumbar back pain Disposition: HOME SELF-CARE Condition: Stable Instructions (If sedation given, give patient instructions): Back Pain (ED) Additional Instructions: Please return to the Emergency Department if symptoms worsen or any other concerns. Is patient prescribed a controlled substance at d/c from ED?: No Referrals: None,Stated [Primary Care Provider] - 1-2 days Time of Disposition: 13:50
--- NOTE | 2022-05-24 13:42 | XR ---
EXAMINATION TYPE: XR knee complete RT DATE OF EXAM: 05/24/2022 CLINICAL HISTORY: pain TECHNIQUE: Three views of the right knee are obtained. COMPARISON: 09/29/2021 FINDINGS: There is no acute fracture/dislocation. The tri-compartment joint spaces demonstrate mild narrowing. Intercondylar spur formation redemonstrated. The overlying soft tissue appears unremarkab le. IMPRESSION: There is no acute fracture or dislocation.ICD 10 NO FRACTURE, INITIAL EVALUATION
--- NOTE | 2022-05-24 13:43 | XR ---
EXAMINATION TYPE: XR lumbar spine 2 or 3V DATE OF EXAM: 05/24/2022 CLINICAL HISTORY: pain TECHNIQUE: Three views of the lumbar spine are submitted. COMPARISON: None. FINDINGS: There are 5 lumbar type vertebral bodies identified. The lumbar spine shows satisfactory alignment w ithout evidence of acute fracture or dislocation. Vertebral body heights are within normal limits. Disc spaces are within normal limits. The overlying soft tissue appears unremarkable. IMPRESSION: No acute fracture or dislocation is seen in the lumbar spine. ICD 10 NO FRACTURE, INITIAL EVALUATION
[2022-05-24] MEDS ORDERED: Acetaminophen-Codeine 300-30mg TAB PO STA (13:56)
== END 2022-05-24 14:10 | disposition home or self-care (01) ==
LOC: EC 12:43
DX: S80.01XA Contusion of right knee, initial encounter (principal); M54.50 Low back pain, unspecified; J45.909 Unspecified asthma, uncomplicated; Z86.73 Personal history of transient ischemic attack (TIA), and cerebral infarction without residual deficits; I10 Essential (primary) hypertension; E07.9 Disorder of thyroid, unspecified; Z79.899 Other long term (current) drug therapy; Z91.041 Radiographic dye allergy status; Z88.3 Allergy status to other anti-infective agents; Z88.0 Allergy status to penicillin; Z88.8 Allergy status to other drugs, medicaments and biological substances; W19.XXXA Unspecified fall, initial encounter
CPT/HCPCS: 72100; 99284

== ENCOUNTER 2022-06-02 11:43 | Emergency (ER) | payer MEDICARE, OTHER ==
[2022-06-02 13:28] VITALS: PULSE 78; TEMP 98.2
--- NOTE | 2022-06-02 14:54 | ED ---
General Adult HPI - General Chief complaint: Extremity Problem,Nontraumatic Stated complaint: rt sided pain/numbness Time Seen by Provider: 06/02/22 14:44 Source: patient, RN notes reviewed Mode of arrival: ambulatory Limitations: no limitations - History of Present Illness Initial comments: Patient is a 41-year-old female presenting to the emergency room with complaints of right-sided body pain and weakness ongoing for the last 3 days. She reports that symptoms are significant enough that she had to drag her right foot over a doorway opening over the last few days. She denies any other focal neurological deficits, chest pain, shortness breath, abdominal pain, nausea, vomiting, fevers or chills. - Related Data Previous Rx's Medication Instructions Recorded Albuterol Inhaler [Ventolin Hfa 2 puff INHALATION Q4HR PRN #8 gm 02/07/22 Inhaler] predniSONE [Deltasone] 20 mg PO BID #8 tab 02/07/22 HYDROcodone/APAP 7.5-325MG [[place] 1 tab PO Q6HR PRN 3 Days #12 tab 03/27/22 7.5-325] Allergies Allergy/AdvReac Type Severity Reaction Status Date / Time Iodinated Contrast Media Allergy Rash/Hives Verified 06/02/22 13:28 [Iodinated Contrast Media - IV Dye] iodine Allergy Rash/Hives Verified 06/02/22 13:28 Iodine and Iodide Containing Allergy Rash/Hives Verified 06/02/22 13:28 Produc bupropion HCl AdvReac Unknown Homicidal Verified 06/02/22 13:28 [From Wellbutrin] Ideation aspirin AdvReac Nausea & Verified 06/02/22 13:28 Vomiting hydromorphone HCl AdvReac Diarrhea Verified 06/02/22 13:28 [From Dilaudid] propoxyphene napsylate AdvReac Nausea & Verified 06/02/22 13:28 [From Darvocet-N] Vomiting steroids Allergy Rash/Hives Uncoded 06/02/22 13:28 Review of Systems ROS Statement: Those systems with pertinent positive or pertinent negative responses have been documented in the HPI. ROS Other: All systems not noted in ROS Statement are negative. Past Medical History Past Medical History: Asthma, CVA/TIA, Hypertension, Seizure Disorder, Thyroid Disorder Additional Past Medical History / Comment(s): 11/2017 TIA or CVA (pt unsure) with resolved L sided weakness/aphasia but states still has short term memory loss, last seizure in 2017, frequent kidney infections, kidney stones she passed on her own, chronic cervical and low back pain, past fractured coccyx, gestational diabetes. History of Any Multi-Drug Resistant Organisms: MRSA Date of last positivie culture/infection: 1999,2013, 2016 MDRO Source:: right leg Past Surgical History: Appendectomy, Section, Cholecystectomy, Tonsillectomy, Tubal Ligation Additional Past Surgical History / Comment(s): Multiple ear surgeries (x15 left ear & 13 right ear) ended up with eardrum replacements, x2 Past Anesthesia/Blood Transfusion Reactions: No Reported Reaction Additional Past Anesthesia/Blood Transfusion Reaction / Comment(s): PT STATES DIFFICULTY WAKING UP. PTS FATHER ALSO HAS DIFFICULTY WAKING UP. Past Psychological History: ADD/ADHD, Anxiety Smoking Status: Never smoker Past Alcohol Use History: None Reported Past Drug Use History: None Reported - Past Family History Mother Family Medical History: Cancer Additional Family Medical History / Comment(s): KIDNEY CANCER- in 2012 at the age of 68yrs. Father Family Medical History: CVA/TIA, Myocardial Infarction ([place]) Additional Family Medical History / Comment(s): Father had 8 CVAs and 2 MIs. His first [place] was at age 69yrs and 2nd [place] was at age 71yrs. He has a pacemaker. He is dyslexic. General Exam Limitations: no limitations General appearance: alert, in no apparent distress Head exam: Present: atraumatic, normocephalic, normal inspection Eye exam: Present: normal appearance, PERRL, EOMI. Absent: scleral icterus, conjunctival injection, periorbital swelling ENT exam: Present: normal exam, mucous membranes moist Neck exam: Present: normal inspection. Absent: tenderness, meningismus, lymphadenopathy Respiratory exam: Present: normal lung sounds bilaterally. Absent: respiratory distress, wheezes, rales, rhonchi, stridor Cardiovascular Exam: Present: regular rate, normal rhythm, normal heart sounds. Absent: systolic murmur, diastolic murmur, rubs, gallop, clicks GI/Abdominal exam: Present: soft, normal bowel sounds. Absent: distended, tenderness, guarding, rebound, rigid Rectal exam: Present: deferred Extremities exam: Present: normal inspection, full ROM. Absent: pedal edema, joint swelling Back exam: Present: normal inspection, full ROM Neurological exam: Present: alert, oriented X3, CN II-XII intact Expanded Motor strength exam: RUE: 5, LUE: 5, RLE: 5, LLE: 5 Eye Response: (4) open spontaneously Motor Response: (6) obeys commands Verbal Response: (5) oriented [place] Total: 15 Psychiatric exam: Present: normal affect, normal mood Skin exam: Present: warm, dry, intact, normal color. Absent: rash Course Vital Signs 06/02/22 13:24 Temperature 98.2 F Pulse Rate 78 Respiratory 22 Rate Blood Pressure 138/82 O2 Sat by Pulse 96 Oximetry Medical Decision Making - Medical Decision Making 4-year-old female presenting to the emergency room with right-sided "pain" with occasional right foot drag ongoing for 3 days without any aggravating or alleviating factors. NIH score 0. No neurological deficits on exam. Given onset of symptoms 3 days ago along with no neurological deficits low probability for CVA likely somatic symptoms. Will check CT of head, CBC and CMP. No indication for any other laboratory studies are diagnostic imaging. CT the brain without acute findings. CBC shows chronic leukocytosis. CMP stable. Will discharge home with continuation of home pain medication and follow-up with her primary care provider. No need for medical intervention in the emergency room. No indication for other testing at this time. Patient agreeable for discharge home. Case discussed with Dr. Lorenz. - Lab Data Result diagrams: 06/02/22 15:27 06/02/22 15:27 Lab Results 06/02/22 06/02/22 Range/Units 15:27 15:27 WBC 13.8 H (3.8-10.6) k/uL RBC 5.07 (3.80-5.40) m/uL Hgb 13.7 (11.4-16.0) gm/dL Hct 43.3 (34.0-46.0) % MCV 85.4 (80.0-100.0) fL MCH 27.0 (25.0-35.0) pg MCHC 31.5 (31.0-37.0) g/dL RDW 13.4 (11.5-15.5) % Plt Count 263 (150-450) k/uL MPV 7.8 Neutrophils % 78 % Lymphocytes % 14 % Monocytes % 4 % Eosinophils % 3 % Basophils % 0 % Neutrophils # 10.8 H (1.3-7.7) k/uL Lymphocytes # 1.9 (1.0-4.8) k/uL Monocytes # 0.5 (0-1.0) k/uL Eosinophils # 0.4 (0-0.7) k/uL Basophils # 0.1 (0-0.2) k/uL Sodium 136 L (137-145) mmol/L Potassium 4.3 (3.5-5.1) mmol/L Chloride 102 (98-107) mmol/L Carbon Dioxide 27 (22-30) mmol/L Anion Gap 7 mmol/L BUN 11 (7-17) mg/dL Creatinine 0.65 (0.52-1.04) mg/dL Est GFR (CKD-EPI)AfAm >90 (>60 ml/min/1.73 sqM) Est GFR (CKD-EPI)NonAf >90 (>60 ml/min/1.73 sqM) Glucose 107 H (74-99) mg/dL Calcium 8.5 (8.4-10.2) mg/dL Magnesium 1.8 (1.6-2.3) mg/dL Total Bilirubin 0.2 (0.2-1.3) mg/dL AST 18 (14-36) U/L ALT 14 (4-34) U/L Alkaline Phosphatase 60 (38-126) U/L Total Protein 5.8 L (6.3-8.2) g/dL Albumin 3.5 (3.5-5.0) g/dL - Radiology Data Radiology results: image reviewed Interpreted by me: No acute intracranial process noted on computed tomography scan CT brain without contrast radiology report pending. Disposition Clinical Impression: Pain of right side of body Disposition: HOME SELF-CARE Condition: Stable Instructions (If sedation given, give patient instructions): Pain Management (ED) Additional Instructions: Please continue to utilize your home pain medications as prescribed for pain as needed. Maintain safety and prevent falls. If any worsening of right-sided pain/weakness or new neurological symptoms plan recent return to the emergency room immediately. Please return to the Emergency Department if symptoms worsen or any other concerns. Is patient prescribed a controlled substance at d/c from ED?: No Referrals: None,Stated [Primary Care Provider] - 1-2 days Time of Disposition: 16:12
[2022-06-02 15:37] LABS: Basophils # (A) 0.1 k/uL (0-0.2); Basophils % (A) 0 %; Eosinophils # (A) 0.4 k/uL (0-0.7); Eosinophils % (A) 3 %; HCT 43.3 % (34.0-46.0); HGB 13.7 gm/dL (11.4-16.0); Lymphocytes # (A) 1.9 k/uL (1.0-4.8); Lymphocytes % (A) 14 %; MCHC 31.5 g/dL (31.0-37.0); MCV 85.4 fL (80.0-100.0); Mean Platelet Volume 7.8; Monocytes # (A) 0.5 k/uL (0-1.0); Monocytes % (A) 4 %; Neutrophils # (A) 10.8 k/uL (1.3-7.7); Neutrophils % (A) 78 %; Platelet Count 263 k/uL (150-450); RBC 5.07 m/uL (3.80-5.40); RDW 13.4 % (11.5-15.5); WBC 13.8 k/uL (3.8-10.6)
[2022-06-02 15:49] LABS: ALT 14 U/L (4-34); AST 18 U/L (14-36); African American GFR (CKD) >90 (>60 ml/min/1.73 sqM); Albumin 3.5 g/dL (3.5-5.0); Alkaline Phosphatase 60 U/L (38-126); Anion Gap 7 mmol/L; Blood Urea Nitrogen 11 mg/dL (7-17); Calcium 8.5 mg/dL (8.4-10.2); Carbon Dioxide 27 mmol/L (22-30); Chloride 102 mmol/L (98-107); Glucose 107 mg/dL (74-99); Magnesium 1.8 mg/dL (1.6-2.3); Non-African American GFR(CKD) >90 (>60 ml/min/1.73 sqM); Potassium 4.3 mmol/L (3.5-5.1); Sodium 136 mmol/L (137-145); Total Bilirubin 0.2 mg/dL (0.2-1.3); Total Protein 5.8 g/dL (6.3-8.2)
[2022-06-02 16:32] VITALS: BP 122/78; RESP 18
--- NOTE | 2022-06-03 12:19 | CT ---
EXAMINATION TYPE: CT brain wo con DATE OF EXAM: 06/02/2022 COMPARISON: CT brain February 25, 2022. HISTORY: Right-sided weakness CT DLP: 1131 mGycm. Automated Exposure Control for Dose Reduction was Utilized. TECHNIQUE: CT scan of the head is performed without contrast. FINDINGS: There is no acute intracranial hemorrhage, mass effect, or midline shift identified. The ventricles and sulci are within normal limits in size. Lazaro-white matter differentiation is maintain ed. The globes are intact bilaterally. Patchy opacification and mucosal thickening in the bilateral e thmoid sinuses. IMPRESSION: No acute intracranial hemorrhage or midline shift is seen. Ethmoid sinus disease redemon strated similar to prior.
== END 2022-06-02 16:20 | disposition home or self-care (01) ==
LOC: EC 11:43
DX: M79.671 Pain in right foot (principal); R53.1 Weakness; J45.909 Unspecified asthma, uncomplicated; I10 Essential (primary) hypertension; E07.9 Disorder of thyroid, unspecified; Z86.73 Personal history of transient ischemic attack (TIA), and cerebral infarction without residual deficits; Z86.69 Personal history of other diseases of the nervous system and sense organs; Z91.041 Radiographic dye allergy status; Z88.8 Allergy status to other drugs, medicaments and biological substances; Z88.6 Allergy status to analgesic agent; Z88.5 Allergy status to narcotic agent
CPT/HCPCS: 36415; 70450; 80053; 83735; 85025; 99285

== ENCOUNTER 2022-06-17 15:45 | Emergency (ER) | payer MEDICARE, OTHER ==
[2022-06-17 16:37] VITALS: BP 139/91; PULSE 80; RESP 20; TEMP 97.8
--- NOTE | 2022-06-17 17:05 | XR ---
EXAMINATION TYPE: XR chest 2V DATE OF EXAM: 06/17/2022 4:57 PM COMPARISON: Chest radiographs from 02/07/2022 TECHNIQUE: XR chest 2V Frontal and lateral views of the chest. CLINICAL INDICATION:Female, 41 years old with history of upper resp symptoms; FINDINGS: Lungs/Pleura: There is no evidence of pleural effusion, focal consolidation, or pneumothorax. Pulmonary vascularity: Unremarkable. Heart/mediastinum: Cardiomediastinal silhouette is unremarkable. Musculoskeletal: No acute osseous pathology. IMPRESSION: No acute cardiopulmonary disease/process.
--- NOTE | 2022-06-17 17:59 | ED ---
URI HPI - General Chief Complaint: Upper Respiratory Infection Stated Complaint: Coughing, SOB Time Seen by Provider: 06/17/22 17:41 Source: patient Mode of arrival: ambulatory Limitations: no limitations - History of Present Illness Initial Comments: Patient is a 41-year-old female with past medical history of asthma who presents to the emergency department with a chief complaint of upper respiratory symptoms. Patient reports congestion, productive cough, body aches. Symptoms started 2 days ago. Denies fever, chills, chest pain and shortness of breath. She has not had an asthma exacerbation over 20 years. Has not taken any symptom relieving medication. - Related Data Previous Rx's Medication Instructions Recorded Albuterol Inhaler [Ventolin Hfa 2 puff INHALATION Q4HR PRN #8 gm 02/07/22 Inhaler] predniSONE [Deltasone] 20 mg PO BID #8 tab 02/07/22 HYDROcodone/APAP 7.5-325MG [[place] 1 tab PO Q6HR PRN 3 Days #12 tab 03/27/22 7.5-325] Benzonatate [Tessalon Perles] 100 mg PO TID PRN #15 capsule 06/17/22 Fluticasone Nasal [place] [Flonase 2 spray EA NOSTRIL DAILY #16 gm 06/17/22 Nasal [place]] methylPREDNISolone Dose Pack 4 mg PO DIRECTED #21 tab 06/17/22 [Medrol Dose Pack] Allergies Allergy/AdvReac Type Severity Reaction Status Date / Time Iodinated Contrast Media Allergy Rash/Hives Verified 06/17/22 16:37 [Iodinated Contrast Media - IV Dye] iodine Allergy Rash/Hives Verified 06/17/22 16:37 Iodine and Iodide Containing Allergy Rash/Hives Verified 06/17/22 16:37 Produc bupropion HCl AdvReac Unknown Homicidal Verified 06/17/22 16:37 [From Wellbutrin] Ideation aspirin AdvReac Nausea & Verified 06/17/22 16:37 Vomiting hydromorphone HCl AdvReac Diarrhea Verified 06/17/22 16:37 [From Dilaudid] propoxyphene napsylate AdvReac Nausea & Verified 06/17/22 16:37 [From Darvocet-N] Vomiting steroids Allergy Rash/Hives Uncoded 06/17/22 16:37 Review of Systems ROS Statement: Those systems with pertinent positive or pertinent negative responses have been documented in the HPI. ROS Other: All systems not noted in ROS Statement are negative. Past Medical History Past Medical History: Asthma, CVA/TIA, Hypertension, Seizure Disorder, Thyroid Disorder Additional Past Medical History / Comment(s): 11/2017 TIA or CVA (pt unsure) with resolved L sided weakness/aphasia but states still has short term memory loss, last seizure in 2017, frequent kidney infections, kidney stones she passed on her own, chronic cervical and low back pain, past fractured coccyx, gestational diabetes. History of Any Multi-Drug Resistant Organisms: MRSA Date of last positivie culture/infection: 1999,2013, 2016 MDRO Source:: right leg Past Surgical History: Appendectomy, Section, Cholecystectomy, Tonsillectomy, Tubal Ligation Additional Past Surgical History / Comment(s): Multiple ear surgeries (x15 left ear & 13 right ear) ended up with eardrum replacements, x2 Past Anesthesia/Blood Transfusion Reactions: No Reported Reaction Additional Past Anesthesia/Blood Transfusion Reaction / Comment(s): PT STATES DIFFICULTY WAKING UP. PTS FATHER ALSO HAS DIFFICULTY WAKING UP. Past Psychological History: ADD/ADHD, Anxiety Smoking Status: Never smoker Past Alcohol Use History: None Reported Past Drug Use History: None Reported - Past Family History Mother Family Medical History: Cancer Additional Family Medical History / Comment(s): KIDNEY CANCER- in 2012 at the age of 68yrs. Father Family Medical History: CVA/TIA, Myocardial Infarction ([place]) Additional Family Medical History / Comment(s): Father had 8 CVAs and 2 MIs. His first MN was at age 69yrs and 2nd MN was at age 71yrs. He has a pacemaker. He is dyslexic. General Exam Limitations: no limitations General appearance: alert, in no apparent distress Head exam: Present: atraumatic, normocephalic, normal inspection Eye exam: Present: normal appearance, PERRL, EOMI. Absent: scleral icterus, conjunctival injection, periorbital swelling Neck exam: Present: normal inspection. Absent: tenderness, meningismus, lymphadenopathy Respiratory exam: Present: normal lung sounds bilaterally. Absent: respiratory distress, wheezes, rales, rhonchi, stridor Cardiovascular Exam: Present: regular rate, normal rhythm, normal heart sounds. Absent: systolic murmur, diastolic murmur, rubs, gallop, clicks Neurological exam: Present: alert, oriented X3, CN II-XII intact Psychiatric exam: Present: normal affect, normal mood Skin exam: Present: warm, dry, intact, normal color. Absent: rash Course Vital Signs 06/17/22 16:34 Temperature 97.8 F Pulse Rate 80 Respiratory 20 Rate Blood Pressure 139/91 O2 Sat by Pulse 97 Oximetry Medical Decision Making - Medical Decision Making This is a 41-year-old female presenting with upper respiratory symptoms. Patient well-appearing. No hypoxia. Lungs clear to auscultation bilaterally. COVID-19 and influenza are not detected. Chest x-ray negative for acute process. Given patient's history of asthma with productive cough complaint today I will treat her for viral bronchitis with Medrol Dosepak, fluticasone spray, and Tessalon Perles. Patient to follow-up with primary care provider. Dr. Berg is my attending. - Lab Data Lab Results 06/17/22 06/17/22 Range/Units 16:41 16:41 Coronavirus (PCR) Not Detected (Not Detectd) Influenza Type A RNA Not Detected (Not Detectd) Influenza Type B (PCR) Not Detected (Not Detectd) Disposition Clinical Impression: Upper respiratory tract infection Disposition: HOME SELF-CARE Condition: Good Instructions (If sedation given, give patient instructions): Upper Respiratory Infection (ED) Additional Instructions: Take medication as directed. Increase water intake and get lots of rest. Follow-up with primary care provider in one to 2 days. Return to emergency department if you experience new, concerning, or worsening symptoms. Prescriptions: Fluticasone Nasal [place] [Flonase Nasal [place]] 2 spray EA NOSTRIL DAILY #16 gm methylPREDNISolone Dose Pack [Medrol Dose Pack] 4 mg PO DIRECTED #21 tab Benzonatate [Tessalon Perles] 100 mg PO TID PRN #15 capsule PRN Reason: Cough Is patient prescribed a controlled substance at d/c from ED?: No Referrals: None,Stated [Primary Care Provider] - 1-2 days Time of Disposition: 17:59
== END 2022-06-17 18:08 | disposition home or self-care (01) ==
LOC: EC 15:45
DX: J06.9 Acute upper respiratory infection, unspecified (principal); J45.909 Unspecified asthma, uncomplicated; I10 Essential (primary) hypertension; F90.9 Attention-deficit hyperactivity disorder, unspecified type; Z20.822 Contact with and (suspected) exposure to COVID-19; Z91.041 Radiographic dye allergy status; Z88.5 Allergy status to narcotic agent; Z88.6 Allergy status to analgesic agent; Z88.8 Allergy status to other drugs, medicaments and biological substances; Z86.73 Personal history of transient ischemic attack (TIA), and cerebral infarction without residual deficits
CPT/HCPCS: 71046; 87502; 87635; 99284

== ENCOUNTER 2022-06-29 19:18 | Emergency (ER) | payer MEDICARE, OTHER ==
[2022-06-29 19:30] VITALS: BP 138/77; PULSE 84; RESP 18; TEMP 98.3
--- NOTE | 2022-06-29 20:07 | ED ---
General Adult HPI - General Chief complaint: Extremity Injury, Lower Stated complaint: Fall-foot injury,congestion Time Seen by Provider: 06/29/22 19:44 Source: patient Mode of arrival: ambulatory Limitations: no limitations - History of Present Illness Initial comments: Dictation was produced using [employer] dictation software. please excuse any gram matical, word or spelling errors. Chief Complaint: 41-year-old female presents emergency department for 7 days of nasal congestion and bilateral foot pain History of Present Illness: 49-year-old female she presents to the emergency department for bilateral foot pain and nasal congestion. Patient states last night she fell down the stairs hurting both her feet. She has a small abrasion to the dorsum of the right foot. Shows complains of some pain over the left great toe patient's ambulatory. Denies any numbness and paresthesias to the feet. Patient also presents for complaint of congestion. She was seen here in emergency department 10 days ago for similar complaint. She had scans unremarkable. She was prescribed steroids discharge. The ROS documented in this emergency department record has been reviewed and confirmed by me. Those systems with pertinent positive or negative responses have been documented in the HPI. All other systems are other negative and/or n oncontributory. PHYSICAL EXAM: General Impression: Alert and oriented x3, not in acute distress HEENT: Normocephalic atraumatic, extra-ocular movements intact, pupils equal and reactive to light bilaterally, mucous membranes moist. Cardiovascular: Heart regular rate and rhythm Chest: Able to complete full sentences, no retractions, no tachypnea Abdomen: abdomen soft, non-tender, non-distended, no organomegaly Musculoskeletal: Pulses present and equal in all extremities, no peripheral edema Motor: no focal deficits noted Neurological: CN II-XII grossly intact, no focal motor or sensory deficits noted Skin: Intact with no visualized rashes Psych: Normal affect and mood ED course: 41 y old female presents emergency department for bilateral foot pain and nasal congestion 7 days. Signs upon arrival are within acceptable limits. Patient's well-appearing at bedside. No gross deformity to the bilateral feet. Lungs are clear to auscultation bilaterally. Foot X-rays unremarkable bilaterally. For panel by PCR is negative. Patient observed in the emergency department for approximately 2 hours. Reevaluated at bedside at 9:20 PM found to be stable medical condition. Patient given prescription for respiratory infectious symptoms given that her symptoms have been ongoing for 7+ days. - Related Data Previous Rx's Medication Instructions Recorded Albuterol Inhaler [Ventolin Hfa 2 puff INHALATION Q4HR PRN #8 gm 02/07/22 Inhaler] predniSONE [Deltasone] 20 mg PO BID #8 tab 02/07/22 HYDROcodone/APAP 7.5-325MG [[place] 1 tab PO Q6HR PRN 3 Days #12 tab 03/27/22 7.5-325] Benzonatate [Tessalon Perles] 100 mg PO TID PRN #15 capsule 06/17/22 Fluticasone Nasal [place] [Flonase 2 spray EA NOSTRIL DAILY #16 gm 06/17/22 Nasal [place]] methylPREDNISolone Dose Pack 4 mg PO DIRECTED #21 tab 06/17/22 [Medrol Dose Pack] Azithromycin [Zithromax Z Pack] 1 tab PO DIRECTED #6 tab 06/29/22 Allergies Allergy/AdvReac Type Severity Reaction Status Date / Time Iodinated Contrast Media Allergy Rash/Hives Verified 06/29/22 19:30 [Iodinated Contrast Media - IV Dye] iodine Allergy Rash/Hives Verified 06/29/22 19:30 Iodine and Iodide Containing Allergy Rash/Hives Verified 06/29/22 19:30 Produc bupropion HCl AdvReac Unknown Homicidal Verified 06/29/22 19:30 [From Wellbutrin] Ideation aspirin AdvReac Nausea & Verified 06/29/22 19:30 Vomiting hydromorphone HCl AdvReac Diarrhea Verified 06/29/22 19:30 [From Dilaudid] propoxyphene napsylate AdvReac Nausea & Verified 06/29/22 19:30 [From Darvocet-N] Vomiting steroids Allergy Rash/Hives Uncoded 06/29/22 19:30 Review of Systems ROS Statement: Those systems with pertinent positive or pertinent negative responses have been documented in the HPI. ROS Other: All systems not noted in ROS Statement are negative. Past Medical History Past Medical History: Asthma, CVA/TIA, Hypertension, Seizure Disorder, Thyroid Disorder Additional Past Medical History / Comment(s): 11/2017 TIA or CVA (pt unsure) with resolved L sided weakness/aphasia but states still has short term memory loss, last seizure in 2016, frequent kidney infections, kidney stones she passed on her own, chronic cervical and low back pain, past fractured coccyx, gestational diabetes. History of Any Multi-Drug Resistant Organisms: MRSA Date of last positivie culture/infection: 1999,2013, 2016 MDRO Source:: right leg Past Surgical History: Appendectomy, Section, Cholecystectomy, Tonsillectomy, Tubal Ligation Additional Past Surgical History / Comment(s): Multiple ear surgeries (x15 left ear & 13 right ear) ended up with eardrum replacements, x2 Past Anesthesia/Blood Transfusion Reactions: No Reported Reaction Additional Past Anesthesia/Blood Transfusion Reaction / Comment(s): PT STATES DIFFICULTY WAKING UP. PTS FATHER ALSO HAS DIFFICULTY WAKING UP. Past Psychological History: ADD/ADHD, Anxiety Smoking Status: Never smoker Past Alcohol Use History: None Reported Past Drug Use History: None Reported - Past Family History Mother Family Medical History: Cancer Additional Family Medical History / Comment(s): KIDNEY CANCER- in 2012 at the age of 68yrs. Father Family Medical History: CVA/TIA, Myocardial Infarction ([place]) Additional Family Medical History / Comment(s): Father had 8 CVAs and 2 MIs. His first MN was at age 69yrs and 2nd MN was at age 71yrs. He has a pacemaker. He is dyslexic. General Exam Limitations: no limitations Course Vital Signs 06/29/22 19:28 Temperature 98.3 F Pulse Rate 84 Respiratory 18 Rate Blood Pressure 138/77 O2 Sat by Pulse 99 Oximetry Medical Decision Making - Lab Data Lab Results 06/29/22 Range/Units 20:23 Influenza Type A (PCR) Not Detected (Not Detectd) Influenza Type B (PCR) Not Detected (Not Detectd) RSV (PCR) Not Detected (Not Detectd) SARS-CoV-2 (PCR) Not Detected (Not Detectd) Disposition Clinical Impression: URI (upper respiratory infection) Disposition: HOME SELF-CARE Condition: Good Instructions (If sedation given, give patient instructions): Foot Contusion (ED), Upper Respiratory Infection (ED) Prescriptions: Azithromycin [Zithromax Z Pack] 1 tab PO DIRECTED #6 tab Is patient prescribed a controlled substance at d/c from ED?: No Referrals: None,Stated [Primary Care Provider] - 1-2 days Time of Disposition: 21:23
--- NOTE | 2022-06-29 20:23 | XR ---
EXAMINATION TYPE: XR foot complete bilateral DATE OF EXAM: 06/29/2022 8:02 PM INDICATION: Patient age:Female; 41 years old; Reason for study: pain after fall; COMPARISON: None TECHNIQUE: The bilateral feet were examined in the AP, oblique, and lateral projections. FINDINGS: No evidence of any acute osseous pathology. No evidence of soft tissue swelling. Joints are preserve d. Calcaneal plantar spurring is present involving the left foot. IMPRESSION: No evidence of acute fracture.
== END 2022-06-29 21:48 | disposition home or self-care (01) ==
LOC: EC 19:18
DX: S90.31XA Contusion of right foot, initial encounter (principal); J06.9 Acute upper respiratory infection, unspecified; J45.909 Unspecified asthma, uncomplicated; I10 Essential (primary) hypertension; E07.9 Disorder of thyroid, unspecified; Z91.041 Radiographic dye allergy status; Z88.8 Allergy status to other drugs, medicaments and biological substances; Z86.73 Personal history of transient ischemic attack (TIA), and cerebral infarction without residual deficits; Z79.82 Long term (current) use of aspirin; Z88.6 Allergy status to analgesic agent; Z79.51 Long term (current) use of inhaled steroids; Z20.822 Contact with and (suspected) exposure to COVID-19; Z90.49 Acquired absence of other specified parts of digestive tract; Z90.89 Acquired absence of other organs; W10.9XXA Fall (on) (from) unspecified stairs and steps, initial encounter; Y92.89 Other specified places as the place of occurrence of the external cause
CPT/HCPCS: 87636; 99283

== ENCOUNTER 2022-07-13 20:38 | Emergency (ER) | payer MEDICARE, OTHER ==
[2022-07-13 20:56] VITALS: BP 136/77; PULSE 85; RESP 18; TEMP 98.5
--- NOTE | 2022-07-13 23:40 | XR ---
EXAMINATION TYPE: XR ankle complete LT DATE OF EXAM: 07/13/2022 COMPARISON: 03/09/2017 HISTORY: Pain TECHNIQUE: 3 views FINDINGS: There is plantar calcaneal spurring. The ankle mortise is anatomic. No definite fracture se en. There is mild soft tissue swelling around the ankle. IMPRESSION: Calcaneal spurring. Mild soft tissue swelling. No fracture seen.
[2022-07-14] MEDS ORDERED: IBUPROFEN 800 MG TAB PO STA (00:39)
--- NOTE | 2022-07-14 00:42 | ED ---
Lower Extremity Injury HPI - General Chief Complaint: Extremity Injury, Lower Stated Complaint: Broken Ankle Time Seen by Provider: 07/14/22 00:25 Source: patient Mode of arrival: wheelchair Limitations: no limitations - History of Present Illness Initial Comments: Patient is a 41-year-old female presenting the emergency room with complaints of left ankle pain and states that she was advised by her foot and ankle Dr. that the ankle was broken and she was placed in a boot. She reports that she is seeing a bone and foot doctor in the [place] but is unable to tell me the provider's name. She was recently seen here in the emergency room with complaints of pain to bilateral feet at that time an x-ray was completed which was negative for any fractures. She has not had any new trauma or falls since the time that she was here last. She reports pain with range of motion but denies range of motion impairment. She is not taking any medications [id number] or prescribed for her pain. She denies any wounds, fevers or chills. She has a past medical history significant for asthma, TIA, hypertension, seizure disorder, hypothyroidism and kidney stones. - Related Data Previous Rx's Medication Instructions Recorded Albuterol Inhaler [Ventolin Hfa 2 puff INHALATION Q4HR PRN #8 gm 02/07/22 Inhaler] predniSONE [Deltasone] 20 mg PO BID #8 tab 02/07/22 HYDROcodone/APAP 7.5-325MG [[place] 1 tab PO Q6HR PRN 3 Days #12 tab 03/27/22 7.5-325] Benzonatate [Tessalon Perles] 100 mg PO TID PRN #15 capsule 06/17/22 Fluticasone Nasal [place] [Flonase 2 spray EA NOSTRIL DAILY #16 gm 06/17/22 Nasal [place]] methylPREDNISolone Dose Pack 4 mg PO DIRECTED #21 tab 06/17/22 [Medrol Dose Pack] Azithromycin [Zithromax Z Pack] 1 tab PO DIRECTED #6 tab 06/29/22 Ibuprofen [Motrin] 800 mg PO Q8H PRN 7 Days #21 tab 07/14/22 Allergies Allergy/AdvReac Type Severity Reaction Status Date / Time Iodinated Contrast Media Allergy Rash/Hives Verified 07/13/22 20:55 [Iodinated Contrast Media - IV Dye] iodine Allergy Rash/Hives Verified 07/13/22 20:55 Iodine and Iodide Containing Allergy Rash/Hives Verified 07/13/22 20:55 Produc bupropion HCl AdvReac Unknown Homicidal Verified 07/13/22 20:55 [From Wellbutrin] Ideation aspirin AdvReac Nausea & Verified 07/13/22 20:55 Vomiting hydromorphone HCl AdvReac Diarrhea Verified 07/13/22 20:55 [From Dilaudid] propoxyphene napsylate AdvReac Nausea & Verified 07/13/22 20:55 [From Darvocet-N] Vomiting steroids Allergy Rash/Hives Uncoded 07/13/22 20:55 Review of Systems ROS Statement: Those systems with pertinent positive or pertinent negative responses have been documented in the HPI. ROS Other: All systems not noted in ROS Statement are negative. Past Medical History Past Medical History: Asthma, CVA/TIA, Hypertension, Seizure Disorder, Thyroid Disorder Additional Past Medical History / Comment(s): 11/2017 TIA or CVA (pt unsure) with resolved L sided weakness/aphasia but states still has short term memory loss, last seizure in 2016, frequent kidney infections, kidney stones she passed on her own, chronic cervical and low back pain, past fractured coccyx, gestational diabetes. History of Any Multi-Drug Resistant Organisms: MRSA Date of last positivie culture/infection: 1999,2013, 2016 MDRO Source:: right leg Past Surgical History: Appendectomy, Section, Cholecystectomy, Tonsillectomy, Tubal Ligation Additional Past Surgical History / Comment(s): Multiple ear surgeries (x15 left ear & 13 right ear) ended up with eardrum replacements, x2 Past Anesthesia/Blood Transfusion Reactions: No Reported Reaction Additional Past Anesthesia/Blood Transfusion Reaction / Comment(s): PT STATES DIFFICULTY WAKING UP. PTS FATHER ALSO HAS DIFFICULTY WAKING UP. Past Psychological History: ADD/ADHD, Anxiety Smoking Status: Never smoker Past Alcohol Use History: None Reported Past Drug Use History: None Reported - Past Family History Mother Family Medical History: Cancer Additional Family Medical History / Comment(s): KIDNEY CANCER- in 2012 at the age of 68yrs. Father Family Medical History: CVA/TIA, Myocardial Infarction ([place]) Additional Family Medical History / Comment(s): Father had 8 CVAs and 2 MIs. His first MT was at age 69yrs and 2nd MT was at age 71yrs. He has a pacemaker. He is dyslexic. General Exam Limitations: no limitations General appearance: alert, in no apparent distress Head exam: Present: atraumatic, normocephalic, normal inspection Eye exam: Present: normal appearance, PERRL, EOMI. Absent: scleral icterus, conjunctival injection, periorbital swelling ENT exam: Present: normal exam, mucous membranes moist Neck exam: Present: normal inspection Respiratory exam: Absent: respiratory distress, accessory muscle use Cardiovascular Exam: Present: regular rate GI/Abdominal exam: Absent: distended Left Ankle exam: Present: full ROM (Per patient). Absent: normal inspection (Surgical boot intact.) Gait: not tested/not observed Neurological exam: Present: alert, oriented X3, CN II-XII intact Psychiatric exam: Present: normal affect, normal mood Skin exam: Present: warm, dry, intact, normal color. Absent: rash Course Vital Signs 07/13/22 20:54 Temperature 98.5 F Pulse Rate 85 Respiratory 18 Rate Blood Pressure 136/77 O2 Sat by Pulse 98 Oximetry Medical Decision Making - Medical Decision Making 41-year-old male presents to the emergency room in a wheelchair with a surgical boot to her left ankle stating that she was seen by a bone and foot doctor earlier today and placed in the surgical boot for fracture to her left ankle but not given any medication for pain and is unsure what to do and wanted "follow-up in the emergency room." no recent injury or trauma. Will obtain new imaging of her left ankle. X-ray of her left ankle negative for acute fracture or abnormal osseous pathology. Findings discussed with patient. 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 Advised R. I. C. E. Rest joint when possible, apply ice for 20 minute increments every 2-3 hours, keep compression with Evgeny wrap intact when possible. Elevate joint when possible. We'll give a prescription for ibuprofen to utilize for pain. Case discussed with Dr. Henry. - Radiology Data Radiology results: report reviewed, image reviewed X-ray left ankle complete impression calcaneal spurring. Mild soft tissue swelling. No fracture. Disposition Clinical Impression: Sprain and strain of ankle Disposition: HOME SELF-CARE Condition: Fair Instructions (If sedation given, give patient instructions): Ankle Sprain (ED) Additional Instructions: Please continue conservative management with R. I. C. E. Rest joint when possi ble, apply ice for 20 minute increments every 2-3 hours, keep compression with Evgeny wrap intact when possible. Elevate joint when possible. Utilize ibuprofen as prescribed as needed for pain.. Please follow-up with your primary care provider and foot and ankle provider. Please return to the Emergency Department if symptoms worsen or any other concerns. Prescriptions: Ibuprofen [Motrin] 800 mg PO Q8H PRN 7 Days #21 tab PRN Reason: Pain Is patient prescribed a controlled substance at d/c from ED?: No Referrals: None,Stated [Primary Care Provider] - 1-2 days Time of Disposition: 00:42
== END 2022-07-14 00:51 | disposition home or self-care (01) ==
LOC: EC 20:38
DX: S93.401A Sprain of unspecified ligament of right ankle, initial encounter (principal); S96.911A Strain of unspecified muscle and tendon at ankle and foot level, right foot, initial encounter; J45.909 Unspecified asthma, uncomplicated; I10 Essential (primary) hypertension; Z91.040 Latex allergy status; Z79.899 Other long term (current) drug therapy
CPT/HCPCS: 99284

== ENCOUNTER 2023-01-14 19:29 | Emergency (ER) | payer MEDICARE, OTHER ==
[2023-01-14 19:58] VITALS: PULSE 72
--- NOTE | 2023-01-14 20:49 | XR ---
EXAMINATION TYPE: XR foot complete LT DATE OF EXAM: 01/14/2023 CLINICAL HISTORY: pain TECHNIQUE: Frontal, lateral and oblique images of the left foot are obtained. COMPARISON: 06/29/2022 FINDINGS: There is no acute fracture/dislocation evident. The joint spaces appear within normal lambert its. The overlying soft tissue appears unremarkable. Small plantar calcaneal spur identified IMPRESSION: There is no acute fracture or dislocation. ICD 10 NO FRACTURE, INITIAL EVALUATION
--- NOTE | 2023-01-14 21:14 | ED ---
General Adult HPI - General Chief complaint: Extremity Injury, Lower Stated complaint: FOOT PAIN RECHECK Time Seen by Provider: 01/14/23 19:59 Source: patient, RN notes reviewed Mode of arrival: ambulatory Limitations: no limitations - History of Present Illness Initial comments: 42-year-old female resents to the emergency department with chief complaint of left foot pain. Patient states that she tripped on the stairs 4 days ago. She states that she was seen by orthopedics who diagnosed her with a fracture in her left foot. She has been wearing a walking boot. She states that she was not given anything for pain from her orthopedic doctor and stated that he told her if she wanted pain medication she will have to get elsewhere. She states that that is why she came to the emergency department. She states that she has fractured the foot in the same place in the past. Denies numbness, tingling. She is able to ambulate on the foot. Denies significant past medical history. - Related Data Home Medications Medication Instructions Recorded Confirmed Albuterol Inhaler [Ventolin Hfa 2 puff INHALATION RT-Q4H PRN 11/06/22 11/06/22 Inhaler] Fluticasone Nasal [place] [Flonase 2 spray EA NOSTRIL DAILY PRN 11/06/22 11/06/22 Nasal [place]] Previous Rx's Medication Instructions Recorded Ibuprofen [Motrin] 800 mg PO Q8H PRN 7 Days #21 tab 07/14/22 Meclizine [Antivert] 25 mg PO BID PRN #10 tab 11/06/22 Allergies Allergy/AdvReac Type Severity Reaction Status Date / Time Iodinated Contrast Media Allergy Rash/Hives Verified 01/14/23 19:57 [Iodinated Contrast Media - IV Dye] iodine Allergy Rash/Hives Verified 01/14/23 19:57 Iodine and Iodide Containing Allergy Rash/Hives Verified 01/14/23 19:57 Produc bupropion HCl AdvReac Unknown Homicidal Verified 01/14/23 19:57 [From Wellbutrin] Ideation aspirin AdvReac Nausea & Verified 01/14/23 19:57 Vomiting hydromorphone HCl AdvReac Diarrhea Verified 01/14/23 19:57 [From Dilaudid] propoxyphene napsylate AdvReac Nausea & Verified 01/14/23 19:57 [From Darvocet-N] Vomiting steroids Allergy Rash/Hives Uncoded 01/14/23 19:57 Review of Systems ROS Statement: Those systems with pertinent positive or pertinent negative responses have been documented in the HPI. ROS Other: All systems not noted in ROS Statement are negative. Past Medical History Past Medical History: Asthma, CVA/TIA, Hypertension, Seizure Disorder, Thyroid Disorder Additional Past Medical History / Comment(s): 11/2017 TIA or CVA (pt unsure) with resolved L sided weakness/aphasia but states still has short term memory loss, last seizure in 2016, frequent kidney infections, kidney stones she passed on her own, chronic cervical and low back pain, past fractured coccyx, gestational diabetes. History of Any Multi-Drug Resistant Organisms: MRSA Date of last positivie culture/infection: 1999,2013, 2016 MDRO Source:: right leg Past Surgical History: Appendectomy, Section, Cholecystectomy, Tonsillectomy, Tubal Ligation Additional Past Surgical History / Comment(s): Multiple ear surgeries (x15 left ear & 13 right ear) ended up with eardrum replacements, x2 Past Anesthesia/Blood Transfusion Reactions: No Reported Reaction Additional Past Anesthesia/Blood Transfusion Reaction / Comment(s): PT STATES DIFFICULTY WAKING UP. PTS FATHER ALSO HAS DIFFICULTY WAKING UP. Past Psychological History: ADD/ADHD, Anxiety Smoking Status: Never smoker Past Alcohol Use History: None Reported Past Drug Use History: None Reported - Past Family History Mother Family Medical History: Cancer Additional Family Medical History / Comment(s): KIDNEY CANCER- in 2012 at the age of 68yrs. Father Family Medical History: CVA/TIA, Myocardial Infarction (ID) Additional Family Medical History / Comment(s): Father had 8 CVAs and 2 MIs. His first ID was at age 69yrs and 2nd ID was at age 71yrs. He has a pacemaker. He is dyslexic. General Exam Limitations: no limitations General appearance: alert, in no apparent distress Head exam: Present: atraumatic, normocephalic, normal inspection Eye exam: Present: normal appearance ENT exam: Present: normal exam, mucous membranes moist Respiratory exam: Present: normal lung sounds bilaterally. Absent: respiratory distress, wheezes, rales, rhonchi, stridor Cardiovascular Exam: Present: regular rate, normal rhythm, normal heart sounds. Absent: systolic murmur, diastolic murmur, rubs, gallop, clicks Extremities exam: Present: normal inspection, full ROM, tenderness (tenderness to left lateral midfoot), normal capillary refill. Absent: pedal edema, joint swelling, calf tenderness Neurological exam: Present: alert Skin exam: Present: warm, dry, intact, normal color. Absent: rash Course Vital Signs 01/14/23 01/14/23 19:54 21:41 Temperature 98.2 F 98.1 F Pulse Rate 72 72 Respiratory 20 16 Rate Blood Pressure 142/82 136/72 O2 Sat by Pulse 97 97 Oximetry Medical Decision Making - Medical Decision Making Was pt. sent in by a medical professional or institution (, PA, SHEET METAL WORKER, urgent care, hospital, or residential...) When possible be specific @ -No Did you speak to anyone other than the patient for history (EMS, parent, family, police, friend...)? What history was obtained from this source @ -No Did you review nursing and triage notes (agree or disagree)? Why? @ -I reviewed and agree with nursing and triage notes Were old charts reviewed (outside hosp., previous admission, EMS record, old EKG, old radiological studies, urgent care reports/EKG's, residential records)? Report findings @ -No old charts were reviewed Differential Diagnosis (chest pain, altered mental status, abdominal pain women, abdominal pain men, vaginal bleeding, weakness, fever, dyspnea, syncope, head ache, dizziness, GI bleed, back pain, seizure, CVA, palpatations, mental health, musculoskeletal)? @ -Differential Musculoskeletal Muscular strain, contusion, ligament sprain, fracture, arthritis, septic arthritis, bursitis, cellulitis, muscle spasm, nerve compression, DVT, arterial occlusion, herpes zoster, electrolyte abnormality, tumor.... This is not meant to be in all inclusive list EKG interpreted by me (3pts min.). @ -None X-rays interpreted by me (1pt min.). @ -XR left foot showed no acute fracture CT interpreted by me (1pt min.). @ -None done U/S interpreted by me (1pt. min.). @ -None done What testing was considered but not performed or refused? (CT, X-rays, U/S, labs)? Why? @ -None What meds were considered but not given or refused? Why? @ -None Did you discuss the management of the patient with other professionals (professionals i.e. Dr., PA, SHEET METAL WORKER, lab, RT, psych nurse, social work lecturer, sanitation worker cleaning equipment, teacher, correction officer, outpatient case manager)? Give summary @ -No Was smoking cessation discussed for >3mins.? @ -No Was critical care preformed (if so, how long)? @ -No Were there social determinants of health that impacted care today? How? (Homelessness, low income, unemployed, alcoholism, drug addiction, transportation, low edu. Level, literacy, decrease access to med. care, senior care, rehab)? @ -No Was there de-escalation of care discussed even if they declined (Discuss DNR or withdrawal of care, Hospice)? DNR status @ -No What co-morbidities impacted this encounter? (DM, HTN, Smoking, COPD, CAD, Cancer, CVA, ARF, Chemo, Hep., AIDS, mental health diagnosis, sleep apnea, morbid obesity)? @ -None Was patient admitted / discharged? Hospital course, mention meds given and route, prescriptions, significant lab abnormalities, going to OR and other pertinent info. @ -Discharged. Patient presented in the emergency department with chief complaint of left foot pain. She states that she tripped on the stairs 4 days ago and was seen by orthopedics. She states that her foot is broken but her orthopedic doctor would not give her anything for pain and told her that she needed to see someone else. X-ray of left foot was obtained which showed no acute fracture. Patient was not given narcotics. Patient discharged in stable condition. Case discussed with my attending, Dr. Arias. Undiagnosed new problem with uncertain prognosis? @ -No Drug Therapy requiring intensive monitoring for toxicity (Heparin, Nitro, I nsulin, Cardizem)? @ -No Were any procedures done? @ -No Diagnosis/symptom? @ -Foot pain Acute, or Chronic, or Acute on Chronic? @ -acute Uncomplicated (without systemic symptoms) or Complicated (systemic symptoms)? @ -uncomplicated Side effects of treatment? @ -No Exacerbation, Progression, or Severe Exacerbation? @ -No Poses a threat to life or bodily function? How? (Chest pain, USA, ID, pneumonia, PE, COPD, DKA, ARF, appy, cholecystitis, CVA, Diverticulitis, Homicidal, Suicidal, threat to staff... and all critical care pts) @ -No Disposition Clinical Impression: Strain of foot, left Disposition: HOME SELF-CARE Condition: Stable Instructions (If sedation given, give patient instructions): Foot Sprain (ED) Additional Instructions: Please return to the Emergency Department if symptoms worsen or any other concerns. Is patient prescribed a controlled substance at d/c from ED?: No Referrals: None,Stated [Primary Care Provider] - 1-2 days Time of Disposition: 21:14
[2023-01-14 21:43] VITALS: BP 136/72; RESP 16; TEMP 98.1
== END 2023-01-14 21:41 | disposition home or self-care (01) ==
LOC: EC 19:29
DX: S96.912A Strain of unspecified muscle and tendon at ankle and foot level, left foot, initial encounter (principal); J45.909 Unspecified asthma, uncomplicated; I10 Essential (primary) hypertension; F90.9 Attention-deficit hyperactivity disorder, unspecified type; F41.9 Anxiety disorder, unspecified; Z86.73 Personal history of transient ischemic attack (TIA), and cerebral infarction without residual deficits; Z79.899 Other long term (current) drug therapy; Z79.51 Long term (current) use of inhaled steroids; Z91.041 Radiographic dye allergy status; Z88.6 Allergy status to analgesic agent; Z88.8 Allergy status to other drugs, medicaments and biological substances; Z88.5 Allergy status to narcotic agent; W18.40XA Slipping, tripping and stumbling without falling, unspecified, initial encounter
CPT/HCPCS: 99283

== ENCOUNTER 2023-02-22 09:44 | Observation (INO) | payer MEDICARE, OTHER ==
[2023-02-22 09:51] VITALS: RESP 18; TEMP 98.1
[2023-02-22] MEDS ORDERED: NITROGLYCERIN OINT 1 INCH/GM PACKET TOPICAL STA (10:28)
[2023-02-22] MEDS ORDERED: ASPIRIN 81 MG PO STA (10:28)
--- NOTE | 2023-02-22 10:34 | ED ---
General Adult HPI - General Chief complaint: Chest Pain Stated complaint: chest pain Time Seen by Provider: 02/22/23 10:20 Source: patient, RN notes reviewed, old records reviewed Mode of arrival: ambulatory Limitations: no limitations - History of Present Illness Initial comments: This is a 42-year-old female who presents emergency Department complaining of chest pain. Patient states it started 2 days ago. Patient states it feels like pressure on the chest. Patient states it also made her somewhat short of breath. Patient denies radiation. Patient denies any diaphoretic episodes. Patient states she has a slight headache. Patient denies diabetes hypertension high cholesterol or any smoking history. Patient states she does have a positive family history both mom and dad of heart problems. Patient denies any abdominal pain patient denies nausea vomiting diarrhea. Patient states the pain is somewhat reproducible. Patient denies any injury or trauma or lifting anything heavy or unusual - Related Data Home Medications Medication Instructions Recorded Confirmed No Known Home Medications 02/22/23 02/22/23 Allergies Allergy/AdvReac Type Severity Reaction Status Date / Time Iodinated Contrast Media Allergy Rash/Hives Verified 02/22/23 11:11 [Iodinated Contrast Media - IV Dye] iodine Allergy Rash/Hives Verified 02/22/23 11:11 Iodine and Iodide Containing Allergy Rash/Hives Verified 02/22/23 11:11 Produc bupropion HCl AdvReac Unknown Homicidal Verified 02/22/23 11:11 [From Wellbutrin] Ideation aspirin AdvReac Nausea & Verified 02/22/23 11:11 Vomiting hydromorphone HCl AdvReac Diarrhea Verified 02/22/23 11:11 [From Dilaudid] propoxyphene napsylate AdvReac Nausea & Verified 02/22/23 11:11 [From Darvocet-N] Vomiting steroids Allergy Rash/Hives Uncoded 02/22/23 11:11 Review of Systems ROS Statement: Those systems with pertinent positive or pertinent negative responses have been documented in the HPI. ROS Other: All systems not noted in ROS Statement are negative. Past Medical History Past Medical History: Asthma, CVA/TIA, Hypertension, Seizure Disorder, Thyroid Disorder Additional Past Medical History / Comment(s): 11/2017 TIA or CVA (pt unsure) with resolved L sided weakness/aphasia but states still has short term memory loss, last seizure in 2016, frequent kidney infections, kidney stones she passed on her own, chronic cervical and low back pain, past fractured coccyx, gestational diabetes. History of Any Multi-Drug Resistant Organisms: MRSA Date of last positivie culture/infection: 1999,2013, 2016 MDRO Source:: right leg Past Surgical History: Appendectomy, Section, Cholecystectomy, Tonsillectomy, Tubal Ligation Additional Past Surgical History / Comment(s): Multiple ear surgeries (x15 left ear & 13 right ear) ended up with eardrum replacements, x2 Past Anesthesia/Blood Transfusion Reactions: No Reported Reaction Additional Past Anesthesia/Blood Transfusion Reaction / Comment(s): PT STATES DIFFICULTY WAKING UP. PTS FATHER ALSO HAS DIFFICULTY WAKING UP. Past Psychological History: ADD/ADHD, Anxiety Smoking Status: Never smoker Past Alcohol Use History: None Reported Past Drug Use History: None Reported - Past Family History Mother Family Medical History: Cancer Additional Family Medical History / Comment(s): KIDNEY CANCER- in 2012 at the age of 68yrs. Father Family Medical History: CVA/TIA, Myocardial Infarction (SC) Additional Family Medical History / Comment(s): Father had 8 CVAs and 2 MIs. His first SC was at age 69yrs and 2nd SC was at age 71yrs. He has a pacemaker. He is dyslexic. General Exam - General Exam Comments Initial Comments: GENERAL: Patient is well-developed and well-nourished. Patient is nontoxic and well- hydrated and is in no acute distress. ENT: Neck is soft and supple. No significant lymphadenopathy is noted. Oropharynx is clear. Moist mucous membranes. Neck has full range of motion without eliciting any pain. EYES: The sclera were anicteric and conjunctiva were pink and moist. Extraocular movements were intact and pupils were equal round and reactive to light. Eyelids were unremarkable. PULMONARY: Unlabored respirations. Good breath sounds bilaterally. No audible rales rhonchi or wheezing was noted. CARDIOVASCULAR: There is a regular rate and rhythm without any murmurs gallops or rubs. I pressed on her chest didn't elicit some pain from the patient ABDOMEN: Soft and nontender with normal bowel sounds. SKIN: Skin is clear with no lesions or rashes and otherwise unremarkable. NEUROLOGIC: Patient is alert and oriented x3. Cranial nerves II through XII are grossly intact. Motor and sensory are also intact. Normal speech, volume and content. Symmetrical smile. MUSCULOSKELETAL: Normal extremities with adequate strength and full range of motion. LYMPHATICS: No significant lymphadenopathy is noted PSYCHIATRIC: Normal psychiatric evaluation. Limitations: no limitations Course Vital Signs 02/22/23 09:46 Temperature 98.1 F Pulse Rate 85 Respiratory 18 Rate Blood Pressure 145/82 O2 Sat by Pulse 97 Oximetry Medical Decision Making - Medical Decision Making EKG is interpreted by me shows a sinus rhythm at 74 bpm NV interval 172 QRS is 104 QT interval 365 QTC is 392. Patient's EKG shows no ST segment elevation or depression. Was pt. sent in by a medical professional or institution (, PA, MACHINE DRILLER, urgent care, hospital, or usp...) When possible be specific @ -No Did you speak to anyone other than the patient for history (EMS, parent, family, police, friend...)? What history was obtained from this source @ -No Did you review nursing and triage notes (agree or disagree)? Why? @ -I reviewed and agree with nursing and triage notes Were old charts reviewed (outside hosp., previous admission, EMS record, old EKG, old radiological studies, urgent care reports/EKG's, usp records)? Report findings @ -I reviewed prior radiological studies and lab work on this patient Differential Diagnosis (chest pain, altered mental status, abdominal pain women, abdominal pain men, vaginal bleeding, weakness, fever, dyspnea, syncope, headache, dizziness, GI bleed, back pain, seizure, CVA, palpatations, mental health, musculoskeletal)? @ -Differential Chest Pain: Stable Angina, Unstable Angina, STEMI, NSTEMI Aortic Dissection, Pneumothorax, Musculoskeletal, Esophageal Spasm GERD, Cholecystitis, Pancreatitis, Zoster, this is not meant to be an all-inclusive list. EKG interpreted by me (3pts min.). @ -As above X-rays interpreted by me (1pt min.). @ -X-ray shows no acute abnormality CT interpreted by me (1pt min.). @ -None done U/S interpreted by me (1pt. min.). @ -None done What testing was considered but not performed or refused? (CT, X-rays, U/S, labs)? Why? @ -None What meds were considered but not given or refused? Why? @ -None Did you discuss the management of the patient with other professionals (professionals i.e. , PA, MACHINE DRILLER, lab, RT, psych nurse, social work manager, carding machine operator, teacher, port patrol officer, caser in)? Give summary @ -I spoke with Dr. du he agreed to admit the patient Was smoking cessation discussed for >3mins.? @ -No Was critical care preformed (if so, how long)? @ -No Were there social determinants of health that impacted care today? How? (Homelessness, low income, unemployed, alcoholism, drug addiction, transportation, low edu. Level, literacy, decrease access to med. care, residential, rehab)? @ -No Was there de-escalation of care discussed even if they declined (Discuss DNR or withdrawal of care, Hospice)? DNR status @ -No What co-morbidities impacted this encounter? (DM, HTN, Smoking, COPD, CAD, Can cer, CVA, ARF, Chemo, Hep., AIDS, mental health diagnosis, sleep apnea, morbid obesity)? @ -None Was patient admitted / discharged? Hospital course, mention meds given and route, prescriptions, significant lab abnormalities, going to OR and other pertinent info. @ -Patient was given aspirin and Nitropaste. Patient states the Nitropaste too k her pain away. Patient initially did not want to stay but then she decided she needed to stay so I spoke with Dr. du he wanted to keep her so admitted I consulted cardiology Undiagnosed new problem with uncertain prognosis? @ -No Drug Therapy requiring intensive monitoring for toxicity (Heparin, Nitro, Insulin, Cardizem)? @ -No Were any procedures done? @ -No Diagnosis/symptom? @ -Chest pain Acute, or Chronic, or Acute on Chronic? @ -Acute Uncomplicated (without systemic symptoms) or Complicated (systemic symptoms)? @ -Complicated Side effects of treatment? @ -No Exacerbation, Progression, or Severe Exacerbation? @ -No Poses a threat to life or bodily function? How? (Chest pain, USA, SC, pneumonia, PE, COPD, DKA, ARF, appy, cholecystitis, CVA, Diverticulitis, Homicidal, Suicidal, threat to staff... and all critical care pts) @ -Yes this could lead to poor perfusion if there is an SC and end organ dysfunction - Lab Data Result diagrams: 02/22/23 10:34 02/22/23 10:34 Lab Results 02/22/23 02/22/23 02/22/23 Range/Units 10:34 10:34 10:34 WBC 12.0 H (3.8-10.6) k/uL RBC 5.10 (3.80-5.40) m/uL Hgb 14.4 (11.4-16.0) gm/dL Hct 42.2 (34.0-46.0) % MCV 82.9 (80.0-100.0) fL MCH 28.2 (25.0-35.0) pg MCHC 34.0 (31.0-37.0) g/dL RDW 13.6 (11.5-15.5) % Plt Count 232 (150-450) k/uL MPV 8.0 Neutrophils % 82 % Lymphocytes % 10 % Monocytes % 4 % Eosinophils % 3 % Basophils % 0 % Neutrophils # 9.9 H (1.3-7.7) k/uL Lymphocytes # 1.2 (1.0-4.8) k/uL Monocytes # 0.5 (0-1.0) k/uL Eosinophils # 0.4 (0-0.7) k/uL Basophils # 0.0 (0-0.2) k/uL PT 9.7 (9.0-12.0) sec INR 0.9 (<1.2) APTT 22.2 (22.0-30.0) sec Sodium 137 (137-145) mmol/L Potassium 4.4 (3.5-5.1) mmol/L Chloride 104 (98-107) mmol/L Carbon Dioxide 25 (22-30) mmol/L Anion Gap 8 mmol/L BUN 10 (7-17) mg/dL Creatinine 0.47 L (0.52-1.04) mg/dL Est GFR (CKD-EPI)AfAm >90 (>60 ml/min/1.73 sqM) Est GFR (CKD-EPI)NonAf >90 (>60 ml/min/1.73 sqM) Glucose 107 H (74-99) mg/dL Calcium 8.5 (8.4-10.2) mg/dL Magnesium 1.8 (1.6-2.3) mg/dL Total Bilirubin 0.4 (0.2-1.3) mg/dL AST 19 (14-36) U/L ALT 19 (4-34) U/L Alkaline Phosphatase 61 (38-126) U/L Troponin I (0.000-0.034) ng/mL Total Protein 6.5 (6.3-8.2) g/dL Albumin 3.6 (3.5-5.0) g/dL 02/22/23 Range/Units 10:34 WBC (3.8-10.6) k/uL RBC (3.80-5.40) m/uL Hgb (11.4-16.0) gm/dL Hct (34.0-46.0) % MCV (80.0-100.0) fL MCH (25.0-35.0) pg MCHC (31.0-37.0) g/dL RDW (11.5-15.5) % Plt Count (150-450) k/uL MPV Neutrophils % % Lymphocytes % % Monocytes % % Eosinophils % % Basophils % % Neutrophils # (1.3-7.7) k/uL Lymphocytes # (1.0-4.8) k/uL Monocytes # (0-1.0) k/uL Eosinophils # (0-0.7) k/uL Basophils # (0-0.2) k/uL PT (9.0-12.0) sec INR (<1.2) APTT (22.0-30.0) sec Sodium (137-145) mmol/L Potassium (3.5-5.1) mmol/L Chloride (98-107) mmol/L Carbon Dioxide (22-30) mmol/L Anion Gap mmol/L BUN (7-17) mg/dL Creatinine (0.52-1.04) mg/dL Est GFR (CKD-EPI)AfAm (>60 ml/min/1.73 sqM) Est GFR (CKD-EPI)NonAf (>60 ml/min/1.73 sqM) Glucose (74-99) mg/dL Calcium (8.4-10.2) mg/dL Magnesium (1.6-2.3) mg/dL Total Bilirubin (0.2-1.3) mg/dL AST (14-36) U/L ALT (4-34) U/L Alkaline Phosphatase (38-126) U/L Troponin I <0.012 (0.000-0.034) ng/mL Total Protein (6.3-8.2) g/dL Albumin (3.5-5.0) g/dL Disposition Clinical Impression: Chest pain Disposition: ADMITTED IP TO THIS HOSP Referrals: None,Stated [Primary Care Provider] - 1-2 days Time of Disposition: 12:55
[2023-02-22 10:56] LABS: Basophils % (A) 0 %; Eosinophils # (A) 0.4 k/uL (0-0.7); Eosinophils % (A) 3 %; HCT 42.2 % (34.0-46.0); HGB 14.4 gm/dL (11.4-16.0); Lymphocytes # (A) 1.2 k/uL (1.0-4.8); Lymphocytes % (A) 10 %; MCH 28.2 pg (25.0-35.0); MCV 82.9 fL (80.0-100.0); Monocytes # (A) 0.5 k/uL (0-1.0); Monocytes % (A) 4 %; Neutrophils # (A) 9.9 k/uL (1.3-7.7); Neutrophils % (A) 82 %; Platelet Count 232 k/uL (150-450); RDW 13.6 % (11.5-15.5)
--- NOTE | 2023-02-22 11:04 | XR ---
EXAMINATION TYPE: XR chest 2V DATE OF EXAM: 02/22/2023 COMPARISON: 06/17/2022 HISTORY: Chest pain TECHNIQUE: Frontal and lateral views of the chest are obtained. FINDINGS: There is no focal air space opacity. No evidence for pneumothorax. No pleural effusion. The cardiac silhouette size is within normal limits. The osseous structures are grossly intact. IMPRESSION: 1. No acute cardiopulmonary process.
[2023-02-22 11:09] LABS: INR 0.9 (<1.2); Partial Thromboplastin Time 22.2 sec (22.0-30.0); Prothrombin Time 9.7 sec (9.0-12.0)
[2023-02-22 11:11] LABS: ALT 19 U/L (4-34); AST 19 U/L (14-36); African American GFR (CKD) >90 (>60 ml/min/1.73 sqM); Albumin 3.6 g/dL (3.5-5.0); Alkaline Phosphatase 61 U/L (38-126); Anion Gap 8 mmol/L; Blood Urea Nitrogen 10 mg/dL (7-17); Calcium 8.5 mg/dL (8.4-10.2); Carbon Dioxide 25 mmol/L (22-30); Chloride 104 mmol/L (98-107); Glucose 107 mg/dL (74-99); Magnesium 1.8 mg/dL (1.6-2.3); Non-African American GFR(CKD) >90 (>60 ml/min/1.73 sqM); Potassium 4.4 mmol/L (3.5-5.1); Sodium 137 mmol/L (137-145); Total Bilirubin 0.4 mg/dL (0.2-1.3); Total Protein 6.5 g/dL (6.3-8.2)
[2023-02-22] MEDS ORDERED: NITROGLYCERIN SL TABS 0.4 MG TAB SUBLINGUAL PRN (12:55)
[2023-02-22 15:18] VITALS: BP 147/72; PULSE 93
[2023-02-22] MEDS ORDERED: NITROGLYCERIN OINT 1 INCH/GM PACKET TOPICAL SCH (18:00)
--- NOTE | 2023-02-22 18:47 | P.HPIM ---
History of Present Illness This is a pleasant 42 years old female with multiple medical problems as below presents because of chest pain of 2 days' duration. Patient says that her pain was central, nonradiating She rates her pain as 9/10 in severity on admission but currently was 5/10 when I saw the patient. She stated that her pain improved with nitroglycerin. She describes her pain as sharp and dull on the same time There is no associated dyspnea or coughing as per patient She was complaining from some headache for the last 2 days however she states her headache is better today and is mild, she denies any dizziness, no blurred vision or slurred speech, no weakness or numbness. Patient also alert oriented to time place and person. She has insight into her illness She reports increased frequency of urination but no dysuria and it has been henry g on for the last 2 days She denies abdominal pain vomiting or diarrhea, Patient state that she has some stress at home because of her daughter. When I asked her patient signs symptoms of depression, she denies any suicidal or homicidal ideation and denies delusions or hallucinations Patient denies smoking alcohol or illicit drugs Vitals are stable Labs unremarkable except for mild leukocytosis around 12,000, 2 troponin sets are negative Chest x-ray: No acute process EKG showed normal sinus rhythm at 74, no significant ST-T changes. Review of Systems Review of systems CONSTITUTIONAL: No fever, no malaise, no fatigue. HEENT: No recent visual problems or hearing problems. Denied any sore throat. CARDIOVASCULAR: No orthopnea, PND, no palpitations, no syncope. PULMONARY: No shortness of breath, no cough, no hemoptysis. GASTROINTESTINAL: No diarrhea, no nausea, no vomiting, no abdominal pain. Normoactive bowel sounds. NEUROLOGICAL: No headaches, no weakness, no numbness. HEMATOLOGICAL: Denies any bleeding or petechiae. GENITOURINARY: Denies any burning micturition, frequency, or urgency. MUSCULOSKELETAL/RHEUMATOLOGICAL: Denies any joint pain, swelling, or any muscle pain. ENDOCRINE: Denies any polyuria or polydipsia. Past Medical History Past Medical History: Asthma, CVA/TIA, Hypertension, Seizure Disorder, Thyroid Disorder Additional Past Medical History / Comment(s): 11/2017 TIA or CVA (pt unsure) with resolved L sided weakness/aphasia but states still has short term memory loss, last seizure in 2017, frequent kidney infections, kidney stones she passed on her own, chronic cervical and low back pain, past fractured coccyx, gestational diabetes. History of Any Multi-Drug Resistant Organisms: MRSA Date of last positivie culture/infection: 1999,2013, 2016 MDRO Source:: right leg Past Surgical History: Appendectomy, Section, Cholecystectomy, Tonsillectomy, Tubal Ligation Additional Past Surgical History / Comment(s): Multiple ear surgeries (x15 left ear & 13 right ear) ended up with eardrum replacements, x2 Past Anesthesia/Blood Transfusion Reactions: No Reported Reaction Additional Past Anesthesia/Blood Transfusion Reaction / Comment(s): PT STATES DIFFICULTY WAKING UP. PTS FATHER ALSO HAS DIFFICULTY WAKING UP. Past Psychological History: ADD/ADHD, Anxiety Smoking Status: Never smoker Past Alcohol Use History: None Reported Past Drug Use History: None Reported - Past Family History Mother Family Medical History: Cancer Additional Family Medical History / Comment(s): KIDNEY CANCER- in 2012 at the age of 68yrs. Father Family Medical History: CVA/TIA, Myocardial Infarction ([place]) Additional Family Medical History / Comment(s): Father had 8 CVAs and 2 MIs. His first [place] was at age 69yrs and 2nd [place] was at age 71yrs. He has a pacemaker. He is dyslexic. Medications and Allergies Home Medications Medication Instructions Recorded Confirmed Type No Known Home Medications 02/22/23 02/22/23 History Allergies Allergy/AdvReac Type Severity Reaction Status Date / Time Iodinated Contrast Media Allergy Rash/Hives Verified 02/22/23 11:11 [Iodinated Contrast Media - IV Dye] iodine Allergy Rash/Hives Verified 02/22/23 11:11 Iodine and Iodide Containing Allergy Rash/Hives Verified 02/22/23 11:11 Produc bupropion HCl AdvReac Unknown Homicidal Verified 02/22/23 11:11 [From Wellbutrin] Ideation aspirin AdvReac Nausea & Verified 02/22/23 11:11 Vomiting hydromorphone HCl AdvReac Diarrhea Verified 02/22/23 11:11 [From Dilaudid] propoxyphene napsylate AdvReac Nausea & Verified 02/22/23 11:11 [From Darvocet-N] Vomiting steroids Allergy Rash/Hives Uncoded 02/22/23 11:11 Physical Exam Vitals: Vital Signs Temp Pulse Resp BP Pulse Ox 02/22/23 09:46 98.1 F 85 18 145/82 97 Intake and Output 02/21/23 02/22/23 02/22/23 22:59 06:59 14:59 Other: Weight 128.82 kg -GENERAL: The patient is alert and oriented x3, not in any acute distress. Well developed, well nourished. Obese HEENT: Pupils are round and equally reacting to light. EOMI. No scleral icterus. No conjunctival pallor. Normocephalic, atraumatic. No pharyngeal erythema. No thyromegaly. CARDIOVASCULAR: S1 and S2 present. No murmurs, rubs, or gallops. -PULMONARY: Chest is clear to auscultation, no wheezing . no crackles. Mild central chest wall tenderness centrally ABDOMEN: Soft, nontender, nondistended, normoactive bowel sounds. No palpable organomegaly. MUSCULOSKELETAL: No joint swelling or deformity. EXTREMITIES: No cyanosis, clubbing, or pedal edema. NEUROLOGICAL: Gross neurological examination did not reveal any focal deficits. SKIN: No rashes. no petechiae. Results CBC & Chem 7: 02/22/23 10:34 02/22/23 10:34 Labs: Abnormal Lab Results - Last 24 Hours (Table) 02/22/23 02/22/23 Range/Units 10:34 10:34 WBC 12.0 H (3.8-10.6) k/uL Neutrophils # 9.9 H (1.3-7.7) k/uL Creatinine 0.47 L (0.52-1.04) mg/dL Glucose 107 H (74-99) mg/dL Assessment and Plan Assessment: Chest pain with tenderness, could be musculoskeletal. Rule out cardiac causes versus other Morbid obesity Increased frequency of urination Plan: Continue with serial troponin Check echocardiogram Cardiology consult Continue with close monitoring DVT and GI prophylaxis
--- NOTE | 2023-02-22 18:48 | P.DS ---
Providers Date of admission: 02/22/23 12:57 Attending physician: Renato Molina MD Consults: 02/22/23 12:55 Consult Physician Urgent Consulting Provider: [facility] Consult Reason/Comments: Chest pain Do you want consulting provider notified?: Yes Primary care physician: Stated None Hospital Course: Please note the patient was not discharged but left AGAINST MEDICAL ADVICE After I saw the patient, patient left AMA. Patient left AGAINST MEDICAL ADVICE before I have a chance to talk to the patient already made her again. Based upon my evaluation earlier patient has capacity to make medical decision. Risks of leaving them A are explained for the patient per staff as reported Plan - Discharge Summary New Discharge Prescriptions: No Action No Known Home Medications Discharge Medication List No Known Home Medications 02/22/23 [History] Follow up Appointment(s)/Referral(s): None,Stated [Primary Care Provider] - 1-2 days Discharge Disposition: LEFT AGAINST MEDICAL ADVICE
[2023-02-23] MEDS ORDERED: ASPIRIN 325 MG TAB PO SCH (09:00)
== END 2023-02-22 15:22 | disposition left against medical advice (07) ==
LOC: EC 09:44 → 6NMEDSUR 12:57
PROVIDERS: ADMIT Internal Medicine; ATTEND Internal Medicine
DX: R07.89 Other chest pain (principal); R35.0 Frequency of micturition; Z53.29 Procedure and treatment not carried out because of patient's decision for other reasons; G40.909 Epilepsy, unspecified, not intractable, without status epilepticus; I10 Essential (primary) hypertension; J45.909 Unspecified asthma, uncomplicated; E07.9 Disorder of thyroid, unspecified; G89.29 Other chronic pain; M54.50 Low back pain, unspecified; M54.2 Cervicalgia; F41.9 Anxiety disorder, unspecified; F90.9 Attention-deficit hyperactivity disorder, unspecified type; R41.3 Other amnesia; E66.01 Morbid (severe) obesity due to excess calories; Z68.42 Body mass index [BMI] 45.0-49.9, adult; Z88.6 Allergy status to analgesic agent; Z91.041 Radiographic dye allergy status; Z88.5 Allergy status to narcotic agent; Z88.8 Allergy status to other drugs, medicaments and biological substances; Z91.048 Other nonmedicinal substance allergy status; Z86.73 Personal history of transient ischemic attack (TIA), and cerebral infarction without residual deficits; Z87.442 Personal history of urinary calculi; Z86.32 Personal history of gestational diabetes; Z86.14 Personal history of Methicillin resistant Staphylococcus aureus infection; Z87.440 Personal history of urinary (tract) infections; Z90.49 Acquired absence of other specified parts of digestive tract; Z98.51 Tubal ligation status; Z98.891 History of uterine scar from previous surgery; Z98.890 Other specified postprocedural states; Z82.49 Family history of ischemic heart disease and other diseases of the circulatory system; Z80.51 Family history of malignant neoplasm of kidney; Z82.3 Family history of stroke
CPT/HCPCS: 99285; 36415; 93005; 80053; 83735; 84484; 85025; 85610; 85730; 71046; G0378

== ENCOUNTER 2023-05-13 14:59 | Emergency (ER) | payer MEDICARE, OTHER ==
[2023-05-13 16:00] VITALS: RESP 18
[2023-05-13] MEDS ORDERED: SODIUM CHLORIDE 0.9% 1,000 ML IV STA (17:01)
[2023-05-13] MEDS ORDERED: KETOROLAC 15 MG/ML 1 ML VIAL IVP STA (17:01)
[2023-05-13 17:40] LABS: Basophils % (A) 0 %; Eosinophils # (A) 0.4 k/uL (0-0.7); Eosinophils % (A) 3 %; HCT 39.9 % (34.0-46.0); HGB 13.4 gm/dL (11.4-16.0); Lymphocytes # (A) 1.5 k/uL (1.0-4.8); Lymphocytes % (A) 11 %; MCH 28.8 pg (25.0-35.0); MCHC 33.6 g/dL (31.0-37.0); MCV 85.6 fL (80.0-100.0); Mean Platelet Volume 8.2; Monocytes # (A) 0.5 k/uL (0-1.0); Monocytes % (A) 3 %; Neutrophils # (A) 11.1 k/uL (1.3-7.7); Neutrophils % (A) 82 %; Platelet Count 245 k/uL (150-450); RBC 4.66 m/uL (3.80-5.40); RDW 13.6 % (11.5-15.5); WBC 13.6 k/uL (3.8-10.6)
--- NOTE | 2023-05-13 17:48 | CT ---
EXAMINATION TYPE: CT abdomen pelvis wo con CT DLP: 1771.4 mGycm, Automated exposure control for dose reduction was used. DATE OF EXAM: 05/13/2023 5:25 PM COMPARISON: CT abdomen pelvis most recent from 09/03/2021. CLINICAL INDICATION:Female, 42 years old with history of right flank pain; right flank pain hematuria TECHNIQUE: Axial CT of the abdomen and pelvis. Sagittal and coronal reformats were created on a [employer] workstation. Contrast used: mL of , (none if empty) Oral contrast used: without Oral Contrast (none if empty) FINDINGS: LOWER CHEST: Unremarkable ABDOMEN LIVER: Diffusely hypoattenuating parenchyma. GALLBLADDER AND BILE DUCTS: The gallbladder is surgically absent. PANCREAS: Unremarkable. SPLEEN: Unremarkable. ADRENAL GLANDS: Unremarkable. KIDNEYS AND URETERS: No evidence of hydronephrosis or renal calculus. The ureters are unremarkable. PELVIS BLADDER: Unremarkable REPRODUCTIVE: Right ovary 4.5 x 4.0 cm cyst. ABDOMEN & PELVIS STOMACH AND BOWEL: No evidence of bowel obstruction. Colonic diverticulosis. The appendix is normal. PERITONEUM/RETROPERITONEUM: No evidence of pneumoperitoneum or free fluid. VASCULATURE: No evidence of aortic aneurysm. MUSCULOSKELETAL: No acute osseous abnormalities, bone island in the left proximal femur. LYMPH NODES: No gross evidence for lymphadenopathy. SOFT TISSUE/ABDOMINAL WALL: Fat-containing umbilical hernia. IMPRESSION: 1. No evidence for renal calculus or obstructive uropathy. The urinary bladder is nondistended and g rossly unremarkable. 2. Right ovarian cyst measuring up to 4.5 cm which is borderline for predisposing the patient for ov becca torsion. This was previously 3.4 cm on 09/03/2021. 3. Hepatic steatosis.
[2023-05-13 17:51] LABS: ALT 25 U/L (4-34); African American GFR (CKD) >90 (>60 ml/min/1.73 sqM); Anion Gap 6 mmol/L; Blood Urea Nitrogen 10 mg/dL (7-17); Calcium 8.8 mg/dL (8.4-10.2); Carbon Dioxide 25 mmol/L (22-30); Chloride 102 mmol/L (98-107); Glucose 136 mg/dL (74-99); Lipase 80 U/L (23-300); Non-African American GFR(CKD) >90 (>60 ml/min/1.73 sqM); Sodium 133 mmol/L (137-145); Total Bilirubin 0.5 mg/dL (0.2-1.3)
[2023-05-13 18:04] LABS: Appearance,Urine Clear (Clear); Bacteria,Urine Occasional /hpf; Bilirubin,Urine Negative (Negative); Blood,Urine Moderate (Negative); Glucose,Urine (UA) Negative (Negative); Ketones,Urine Negative (Negative); Leukocyte Esterase,Urine Moderate (Negative); Mucus,Urine Few /hpf; Nitrite,Urine Positive (Negative); Protein,Urine Negative (Negative); RBC,Urine 4 /hpf (0-5); Specific Gravity,Urine 1.021 (1.001-1.035); Squamous Epithelial Cell,Urine 2 /hpf (0-4); Urobilinogen,Urine <2.0 mg/dL (<2.0); WBC,Urine 2 /hpf (0-5)
[2023-05-13 18:07] LABS: Color,Urine Yellow
[2023-05-13 18:11] LABS: AST 29 U/L (14-36); Albumin 3.6 g/dL (3.5-5.0); Alkaline Phosphatase 56 U/L (38-126); Potassium 4.5 mmol/L (3.5-5.1); Total Protein 6.7 g/dL (6.3-8.2)
[2023-05-13] MEDS ORDERED: MORPHINE SULFATE 4 MG/ML SYRINGE IVP STA (18:22)
[2023-05-13] MEDS ORDERED: CEPHALEXIN 250 MG CAP PO STA (18:22)
--- NOTE | 2023-05-13 18:58 | US ---
EXAMINATION TYPE: US transvaginal DATE OF EXAM: 05/13/2023 COMPARISON: CT 2022, US 2021 CLINICAL INDICATION: Female, 42 years old with history of pain right ovarian cyst; Right pelvic pain, right ovarian cyst seen on CT TECHNIQUE: Transvaginal ER exam Date of LMP: 03/19/2023 EXAM MEASUREMENTS: Uterus: 10.9 x 4.7 x 5.3 cm Endometrial Stripe: 1.7 cm Right Ovary: 4.9 x 4.4 x 5.6 cm Left Ovary: not seen 1. Uterus: anteverted, heterogeneous, multiple nabothian cysts 2. Endometrium: thickened 3. Right Ovary: 3.8 x 3.9 x 4.1cm cyst 4. Left Ovary: not seen Spectral, color and waveform doppler imaging shows good arterial and venous flow within the right o vary; there is no evidence for ovarian torsion within the right ovary. 5. Bilateral Adnexa: wnl 6. Posterior cul-de-sac: wnl IMPRESSION: 1. The right ovary demonstrates appropriate arterial and venous spectral waveforms. No evidence for torsion. 2. Simple appearing right ovarian cyst measuring up to 4.9 cm.
[2023-05-13] MEDS ORDERED: ACET/COD 300 MG/30 MG STARTER PACK 6 TAB BTL PO STA (19:00)
--- NOTE | 2023-05-13 19:06 | ED ---
Female Urogenital HPI - General Chief complaint: Urogenital Stated complaint: abd pain Time Seen by Provider: 05/13/23 16:58 Source: patient Mode of arrival: ambulatory Limitations: no limitations - History of Present Illness Initial comments: Patient is a 42-year-old female who presents the emergency department for back pain. Patient reports right lower back pain since this morning. She has history of kidney stones states this feels similar. It is a sharp pain. She denies fever, chills, nausea, vomiting. He does have some urinary urgency and frequency without burning. She denies a blood in urine. Denies abdominal pain, diarrhea, constipation, blood in stool. Last Menstrual Period: 04/14/23 - Related Data Previous Rx's Medication Instructions Recorded Cephalexin [Keflex] 250 mg PO Q6HR #20 cap 05/13/23 Allergies Allergy/AdvReac Type Severity Reaction Status Date / Time Iodinated Contrast Media Allergy Rash/Hives Verified 05/13/23 16:00 [Iodinated Contrast Media - IV Dye] iodine Allergy Rash/Hives Verified 05/13/23 16:00 Iodine and Iodide Containing Allergy Rash/Hives Verified 05/13/23 16:00 Produc bupropion HCl AdvReac Unknown Homicidal Verified 05/13/23 16:00 [From Wellbutrin] Ideation aspirin AdvReac Nausea & Verified 05/13/23 16:00 Vomiting hydromorphone HCl AdvReac Diarrhea Verified 05/13/23 16:00 [From Dilaudid] propoxyphene napsylate AdvReac Nausea & Verified 05/13/23 16:00 [From Darvocet-N] Vomiting steroids Allergy Rash/Hives Uncoded 05/13/23 16:00 Review of Systems ROS Statement: Those systems with pertinent positive or pertinent negative responses have been documented in the HPI. ROS Other: All systems not noted in ROS Statement are negative. Past Medical History Past Medical History: Asthma, CVA/TIA, Hypertension, Seizure Disorder, Thyroid Disorder Additional Past Medical History / Comment(s): 11/2017 TIA or CVA (pt unsure) with resolved L sided weakness/aphasia but states still has short term memory loss, last seizure in 2017, frequent kidney infections, kidney stones she passed on her own, chronic cervical and low back pain, past fractured coccyx, gestational diabetes. History of Any Multi-Drug Resistant Organisms: MRSA Date of last positivie culture/infection: 1999,2013, 2016 MDRO Source:: right leg Past Surgical History: Appendectomy, Section, Cholecystectomy, Tonsillectomy, Tubal Ligation Additional Past Surgical History / Comment(s): Multiple ear surgeries (x15 left ear & 13 right ear) ended up with eardrum replacements, x2 Past Anesthesia/Blood Transfusion Reactions: No Reported Reaction Additional Past Anesthesia/Blood Transfusion Reaction / Comment(s): PT STATES DIFFICULTY WAKING UP. PTS FATHER ALSO HAS DIFFICULTY WAKING UP. Past Psychological History: ADD/ADHD, Anxiety Smoking Status: Never smoker Past Alcohol Use History: None Reported Past Drug Use History: None Reported - Past Family History Mother Family Medical History: Cancer Additional Family Medical History / Comment(s): KIDNEY CANCER- in 2012 at the age of 68yrs. Father Family Medical History: CVA/TIA, Myocardial Infarction ([place]) Additional Family Medical History / Comment(s): Father had 8 CVAs and 2 MIs. His first [place] was at age 69yrs and 2nd [place] was at age 71yrs. He has a pacemaker. He is dyslexic. General Exam Limitations: no limitations General appearance: alert Eye exam: Present: normal appearance, PERRL, EOMI. Absent: scleral icterus, conjunctival injection, periorbital swelling Respiratory exam: Present: normal lung sounds bilaterally. Absent: respiratory distress, wheezes, rales, rhonchi, stridor Cardiovascular Exam: Present: regular rate, normal rhythm, normal heart sounds. Absent: systolic murmur, diastolic murmur, rubs, gallop, clicks GI/Abdominal exam: Present: soft, normal bowel sounds. Absent: distended, tenderness, guarding, rebound, rigid Back exam: Present: normal inspection, full ROM, paraspinal tenderness (Right lumbar). Absent: CVA tenderness (R), CVA tenderness (L), vertebral tenderness Neurological exam: Present: alert Psychiatric exam: Present: normal affect, normal mood Skin exam: Present: warm, dry, intact, normal color. Absent: rash Course Vital Signs 05/13/23 05/13/23 05/13/23 15:56 19:28 20:00 Temperature 98.0 F 98.1 F Pulse Rate 72 76 Respiratory 18 18 18 Rate Blood Pressure 163/96 136/74 146/95 O2 Sat by Pulse 96 98 Oximetry Medical Decision Making - Medical Decision Making Was pt. sent in by a medical professional or institution ([facility]ARY[facility] Leal, PRODUCTION LINE [employer]DERER, urgent care, hospital, or shelter...) When possible be specific @ -No Did you speak to anyone other than the patient for history (EMS, parent, family, police, friend...)? What history was obtained from this source @ -No Did you review nursing and triage notes (agree or disagree)? Why? @ -I reviewed and agree with nursing and triage notes Were old charts reviewed (outside hosp., previous admission, EMS record, old EKG, old radiological studies, urgent care reports/EKG's, shelter records)? Report findings @ -No old charts were reviewed Differential Diagnosis (chest pain, altered mental status, abdominal pain women, abdominal pain men, vaginal bleeding, weakness, fever, dyspnea, syncope, headach e, dizziness, GI bleed, back pain, seizure, CVA, palpatations, mental health)? @ -Differential Abdominal Pain Women: Appendicitis, Cholecystitis, diverticulosis, ischemic bowel, pancreatitis, hepatitis, UTI, gastroenteritis, AAA, incarcerated hernia, bowel obstruction, constipation, inflammatory bowel, hepatitis, peptic ulcer disease, splenic infarction, perforated viscus, vulvitis, ovarian torsion, PID, kidney stone, placenta abruption, this is not meant to be an all-inclusive list EKG interpreted by me (3pts min.). @ -As above X-rays interpreted by me (1pt min.). @ -None done CT interpreted by me (1pt min.). @ - CT interpreted by myself showing no evidence for renal calculus or obstructive uropathy. Hepatic steatosis. There is a right ovarian cyst melania suring up to 4.5 cm U/S interpreted by me (1pt. min.). @ -None done What testing was considered but not performed or refused? (CT, X-rays, U/S, labs)? Why? @ -None What meds were considered but not given or refused? Why? @ -None Did you discuss the management of the patient with other professionals (professionals i.e. CARYN Leal, PRODUCTION LINE SOLDERER, lab, RT, psych nurse, dialysis social worker, ash pit worker, teacher, business enterprise officer, casey saw operator)? Give summary @ -No Was smoking cessation discussed for >3mins.? @ -No Was critical care preformed (if so, how long)? @ -No Were there social determinants of health that impacted care today? How? (Homelessness, low income, unemployed, alcoholism, drug addiction, transportation, low edu. Level, literacy, decrease access to med. care, [facility], rehab)? @ -No Was there de-escalation of care discussed even if they declined (Discuss DNR or withdrawal of care, Hospice)? DNR status @ -No What co-morbidities impacted this encounter? (DM, HTN, Smoking, COPD, CAD, Canc er, CVA, ARF, Chemo, Hep., AIDS, mental health diagnosis, sleep apnea, morbid obesity)? @ -None Was patient admitted / discharged? Hospital course, mention meds given and route, prescriptions, significant lab abnormalities, going to OR and other pertinent info. @ -Patient presenting for back pain and urinary frequency/urgency. She is nontoxic appearing. Labs obtained and there is mild leukocytosis at 13.6. Urinalysis is evident for infection with bacteria, moderate leukocyte esterase, positive nitrites, moderate blood. CT interpreted by myself showing no evidence for renal calculus or obstructive uropathy. There is a right ovarian cyst measuring up to 4.5 cm. at this time ovarian torsion cannot be ruled out. Ultrasound obtained interpreted by myself/radiology showing no evidence of torsion, size approximately 4.9 cm. Results discussed with patient. Patient aware that she is at increased risk for torsion with large ovarian cyst. Her pain is controlled she is in stable medical condition for discharge. She is to follow-up with global project manager for further evaluation and management. We discussed return parameters. Patient will be discharged with pain control and Keflex for urinary tract infection. Undiagnosed new problem with uncertain prognosis? @ -No Drug Therapy requiring intensive monitoring for toxicity (Heparin, Nitro, Insulin, Cardizem)? @ -No Were any procedures done? @ -No Diagnosis/symptom? @ -ovarian cyst, UTI Acute, or Chronic, or Acute on Chronic? @ -acute Uncomplicated (without systemic symptoms) or Complicated (systemic symptoms)? @ -uncomplicated Side effects of treatment? @ -No Exacerbation, Progression, or Severe Exacerbation? @ -No Poses a threat to life or bodily function? How? (Chest pain, [place], [place], pneumonia, PE, COPD, DKA, ARF, appy, cholecystitis, CVA, Diverticulitis, Homicidal, Suicidal, threat to staff... and all critical care pts) @ -No Dr. Long is my attending - Lab Data Result diagrams: 05/13/23 17:29 05/13/23 17:29 Lab Results 05/13/23 05/13/23 05/13/23 Range/Units 17:20 17:29 17:29 WBC 13.6 H (3.8-10.6) k/uL RBC 4.66 (3.80-5.40) m/uL Hgb 13.4 (11.4-16.0) gm/dL Hct 39.9 (34.0-46.0) % MCV 85.6 (80.0-100.0) fL MCH 28.8 (25.0-35.0) pg MCHC 33.6 (31.0-37.0) g/dL RDW 13.6 (11.5-15.5) % Plt Count 245 (150-450) k/uL MPV 8.2 Neutrophils % 82 % Lymphocytes % 11 % Monocytes % 3 % Eosinophils % 3 % Basophils % 0 % Neutrophils # 11.1 H (1.3-7.7) k/uL Lymphocytes # 1.5 (1.0-4.8) k/uL Monocytes # 0.5 (0-1.0) k/uL Eosinophils # 0.4 (0-0.7) k/uL Basophils # 0.0 (0-0.2) k/uL Sodium (137-145) mmol/L Potassium (3.5-5.1) mmol/L Chloride (98-107) mmol/L Carbon Dioxide (22-30) mmol/L Anion Gap mmol/L BUN (7-17) mg/dL Creatinine (0.52-1.04) mg/dL Est GFR (CKD-EPI)AfAm (>60 ml/min/1.73 sqM) Est GFR (CKD-EPI)NonAf (>60 ml/min/1.73 sqM) Glucose (74-99) mg/dL Plasma Lactic Acid Saleem (0.7-2.0) mmol/L Calcium (8.4-10.2) mg/dL Total Bilirubin (0.2-1.3) mg/dL AST (14-36) U/L ALT (4-34) U/L Alkaline Phosphatase (38-126) U/L Total Protein (6.3-8.2) g/dL Albumin (3.5-5.0) g/dL Lipase (23-300) U/L Urine Color Yellow Urine Appearance Clear (Clear) Urine pH 6.0 (5.0-8.0) Ur Specific Reform 1.021 (1.001-1.035) Urine Protein Negative (Negative) Urine Glucose (UA) Negative (Negative) Urine Ketones Negative (Negative) Urine Blood Moderate H (Negative) Urine Nitrite Positive H (Negative) Urine Bilirubin Negative (Negative) Urine Urobilinogen <2.0 (<2.0) mg/dL Ur Leukocyte Esterase Moderate H (Negative) Urine RBC 4 (0-5) /hpf Urine WBC 2 (0-5) /hpf Ur Squamous Epith Cells 2 (0-4) /hpf Urine Bacteria Occasional H (None) /hpf Urine Mucus Few H (None) /hpf Urine HCG, Qual Not Detected (Not Detectd) 05/13/23 05/13/23 Range/Units 17:29 17:29 WBC (3.8-10.6) k/uL RBC (3.80-5.40) m/uL Hgb (11.4-16.0) gm/dL Hct (34.0-46.0) % MCV (80.0-100.0) fL MCH (25.0-35.0) pg MCHC (31.0-37.0) g/dL RDW (11.5-15.5) % Plt Count (150-450) k/uL MPV Neutrophils % % Lymphocytes % % Monocytes % % Eosinophils % % Basophils % % Neutrophils # (1.3-7.7) k/uL Lymphocytes # (1.0-4.8) k/uL Monocytes # (0-1.0) k/uL Eosinophils # (0-0.7) k/uL Basophils # (0-0.2) k/uL Sodium 133 L (137-145) mmol/L Potassium 4.5 (3.5-5.1) mmol/L Chloride 102 (98-107) mmol/L Carbon Dioxide 25 (22-30) mmol/L Anion Gap 6 mmol/L BUN 10 (7-17) mg/dL Creatinine 0.64 (0.52-1.04) mg/dL Est GFR (CKD-EPI)AfAm >90 (>60 ml/min/1.73 sqM) Est GFR (CKD-EPI)NonAf >90 (>60 ml/min/1.73 sqM) Glucose 136 H (74-99) mg/dL Plasma Lactic Acid Saleem 1.5 (0.7-2.0) mmol/L Calcium 8.8 (8.4-10.2) mg/dL Total Bilirubin 0.5 (0.2-1.3) mg/dL AST 29 (14-36) U/L ALT 25 (4-34) U/L Alkaline Phosphatase 56 (38-126) U/L Total Protein 6.7 (6.3-8.2) g/dL Albumin 3.6 (3.5-5.0) g/dL Lipase 80 (23-300) U/L Urine Color Urine Appearance (Clear) Urine pH (5.0-8.0) Ur Specific Reform (1.001-1.035) Urine Protein (Negative) Urine Glucose (UA) (Negative) Urine Ketones (Negative) Urine Blood (Negative) Urine Nitrite (Negative) Urine Bilirubin (Negative) Urine Urobilinogen (<2.0) mg/dL Ur Leukocyte Esterase (Negative) Urine RBC (0-5) /hpf Urine WBC (0-5) /hpf Ur Squamous Epith Cells (0-4) /hpf Urine Bacteria (None) /hpf Urine Mucus (None) /hpf Urine HCG, Qual (Not Detectd) Disposition Clinical Impression: Ovarian cyst, UTI (urinary tract infection) Disposition: HOME SELF-CARE Condition: Good Instructions (If sedation given, give patient instructions): Ovarian Cyst (ED), Urinary Tract Infection in Women (ED) Additional Instructions: Alternate Tylenol and Motrin every 3-4 hours for pain. Save Tylenol 3 for s evere pain. Take antibiotic as directed for urinary tract infection. Follow-up with gynecology in one to 2 days which you are referred to today. Return to the emergency department if you experience new, concerning, or worsening symptoms. Prescriptions: Cephalexin [Keflex] 250 mg PO Q6HR #20 cap Is patient prescribed a controlled substance at d/c from ED?: No Referrals: None,Stated [Primary Care Provider] - 1-2 days
[2023-05-13 20:12] VITALS: BP 146/95; PULSE 76; TEMP 98.1
== END 2023-05-13 20:14 | disposition home or self-care (01) ==
LOC: EC 14:59
DX: N83.201 Unspecified ovarian cyst, right side (principal); N39.0 Urinary tract infection, site not specified; K76.0 Fatty (change of) liver, not elsewhere classified; I10 Essential (primary) hypertension; J45.909 Unspecified asthma, uncomplicated; Z88.5 Allergy status to narcotic agent; Z88.6 Allergy status to analgesic agent; Z88.8 Allergy status to other drugs, medicaments and biological substances; Z86.59 Personal history of other mental and behavioral disorders
CPT/HCPCS: 36415; 80053; 83605; 83690; 85025; 81001; 81025; 93976; 76830; 74176; 99284; 96374; 96375; 96361 ×3; J2270; J1885; 93975

== ENCOUNTER 2023-06-02 15:29 | Emergency (ER) | payer MEDICARE, OTHER ==
[2023-06-02 15:46] VITALS: TEMP 97.6
[2023-06-02] MEDS ORDERED: SODIUM CHLORIDE 0.9% 1,000 ML IV STA (16:24)
[2023-06-02] MEDS ORDERED: MORPHINE SULFATE 4 MG/ML SYRINGE IVP STA (16:25)
[2023-06-02] MEDS ORDERED: KETOROLAC 15 MG/ML 1 ML VIAL IVP STA (16:25)
--- NOTE | 2023-06-02 16:40 | ED ---
Abdominal Pain HPI - General Chief Complaint: Abdominal Pain Stated Complaint: ovarian cyst Time Seen by Provider: 06/02/23 16:14 Source: patient, RN notes reviewed Mode of arrival: ambulatory Limitations: no limitations - History of Present Illness Initial Comments: This is a 42-year-old female who presents to the emergency department for abdominal pain. Reports right lower quadrant abdominal pain increasing over the last 4 days. States that she has a history of ovarian cysts, and was told that she had a large one on the right side previously, and was told to go to the emergency department for evaluation if the pain returned due to risk for tors ion. Denies any nausea or vomiting. States that her period finished 5 days ago, but she does still have minor spotting. Denies any fevers, chills, sore throat, cough, dyspnea, chest pain, palpitations, nausea, vomiting, diarrhea, back pain, or headaches. MD Complaint: abdominal pain - Related Data Previous Rx's Medication Instructions Recorded Cephalexin [Keflex] 250 mg PO Q6HR #20 cap 05/13/23 Ketorolac [Toradol] 10 mg PO Q6HR PRN #15 tab 06/02/23 Ondansetron Odt [Zofran Odt] 4 mg PO Q8HR PRN #20 tab 06/02/23 Allergies Allergy/AdvReac Type Severity Reaction Status Date / Time Iodinated Contrast Media Allergy Rash/Hives Verified 05/13/23 16:00 [Iodinated Contrast Media - IV Dye] iodine Allergy Rash/Hives Verified 05/13/23 16:00 Iodine and Iodide Containing Allergy Rash/Hives Verified 05/13/23 16:00 Produc bupropion HCl AdvReac Unknown Homicidal Verified 05/13/23 16:00 [From Wellbutrin] Ideation aspirin AdvReac Nausea & Verified 05/13/23 16:00 Vomiting hydromorphone HCl AdvReac Diarrhea Verified 05/13/23 16:00 [From Dilaudid] propoxyphene napsylate AdvReac Nausea & Verified 05/13/23 16:00 [From Darvocet-N] Vomiting steroids Allergy Rash/Hives Uncoded 05/13/23 16:00 Review of Systems ROS Statement: Those systems with pertinent positive or pertinent negative responses have been documented in the HPI. ROS Other: All systems not noted in ROS Statement are negative. Past Medical History Past Medical History: Asthma, CVA/TIA, Hypertension, Seizure Disorder, Thyroid Disorder Additional Past Medical History / Comment(s): 11/2017 TIA or CVA (pt unsure) with resolved L sided weakness/aphasia but states still has short term memory loss, last seizure in 2017, frequent kidney infections, kidney stones she passed on her own, chronic cervical and low back pain, past fractured coccyx, gestational diabetes. ovarian cyst History of Any Multi-Drug Resistant Organisms: MRSA Date of last positivie culture/infection: 1999,2013, 2016 MDRO Source:: right leg Past Surgical History: Appendectomy, Section, Cholecystectomy, Tonsillectomy, Tubal Ligation Additional Past Surgical History / Comment(s): Multiple ear surgeries (x15 left ear & 13 right ear) ended up with eardrum replacements, x2 Past Anesthesia/Blood Transfusion Reactions: No Reported Reaction Additional Past Anesthesia/Blood Transfusion Reaction / Comment(s): PT STATES DIFFICULTY WAKING UP. PTS FATHER ALSO HAS DIFFICULTY WAKING UP. Past Psychological History: ADD/ADHD, Anxiety Smoking Status: Never smoker Past Alcohol Use History: None Reported Past Drug Use History: None Reported - Past Family History Mother Family Medical History: Cancer Additional Family Medical History / Comment(s): KIDNEY CANCER- in 2012 at the age of 68yrs. Father Family Medical History: CVA/TIA, Myocardial Infarction ([place]) Additional Family Medical History / Comment(s): Father had 8 CVAs and 2 MIs. His first VT was at age 69yrs and 2nd VT was at age 71yrs. He has a pacemaker. He is dyslexic. General Exam Limitations: no limitations General appearance: alert, in no apparent distress Head exam: Present: atraumatic, normocephalic, normal inspection Respiratory exam: Present: normal lung sounds bilaterally. Absent: respiratory distress, wheezes, rales, rhonchi, stridor Cardiovascular Exam: Present: regular rate, normal rhythm, normal heart sounds. Absent: systolic murmur, diastolic murmur, rubs, gallop, clicks GI/Abdominal exam: Present: soft, tenderness (Right sided pelvic), normal bowel sounds. Absent: distended Neurological exam: Present: alert, oriented X3, CN II-XII intact Psychiatric exam: Present: normal affect, normal mood Skin exam: Present: warm, dry, intact, normal color. Absent: rash Course Vital Signs 06/02/23 06/02/23 06/02/23 15:43 17:13 17:49 Temperature 97.6 F Pulse Rate 78 74 78 Respiratory 20 18 18 Rate Blood Pressure 126/57 134/85 127/78 O2 Sat by Pulse 98 99 99 Oximetry Medical Decision Making - Medical Decision Making This is a 42-year-old female who presents to the emergency department for right- sided pelvic pain. Was pt. sent in by a medical professional or institution? @ -No Did you speak to anyone other than the patient for history? @ -No Did you review nursing and triage notes? @ -Yes, and I agree, it is accurate with regards to the patient's symptoms. Were old charts reviewed? @ -Pelvic US from 05/13/2023 demonstrating a 4.9 cm simple right-sided ovarian cyst. Differential Diagnosis? @ -Differential Abdominal Pain Women: Appendicitis, Cholecystitis, diverticulosis, ischemic bowel, pancreatitis, hepatitis, UTI, gastroenteritis, AAA, incarcerated hernia, bowel obstruction, constipation, inflammatory bowel, hepatitis, peptic ulcer disease, splenic infarction, perforated viscus, vulvitis, ovarian torsion, PID, kidney stone, placenta abruption, this is not meant to be an all-inclusive list EKG interpreted by me (3pts min.)? @ -Not obtained X-rays interpreted by me (1pt min.)? @ -Not obtained CT interpreted by me (1pt min.)? @ -Not obtained U/S interpreted by me (1pt. min.)? @ -Not interpreted by me What testing was considered but not performed? (CT, X-rays, U/S, labs)? Why? @ -None What meds were considered but not given? Why? @ -None Did you discuss the management of the patient with other professionals? @ -No Did you reconcile home meds? @ -No Was smoking cessation discussed for >3mins.? @ -No Was critical care preformed (if so, how long)? @ -No Were there social determinants of health that impacted care today? How? (Homelessness, low income, unemployed, alcoholism, drug addiction, transportation, low edu. Level, literacy, decrease access to med. care, alf, rehab)? @ -No Was there de-escalation of care discussed even if they declined? (Discuss DNR or withdrawal of care, Hospice)? @ -No What co-morbidities impacted this encounter? (DM, HTN, Smoking, COPD, CAD, Cancer, CVA, Hep., AIDS, mental health diagnosis, sleep apnea, morbid obesity)? @ -Morbid obesity Was patient admitted / discharged? @ -Discharged. Lab work obtained and found to be nonactionable. Urinalysis consistent with contamination. Urine was sent for culture. Transvaginal ultrasound obtained, however the right ovary could not be visualized. Her symptoms were well controlled in the emergency department. Discussed with the patient that ovarian torsion cannot entirely be ruled out given that her ovary could not be visualized, however based on the normal blood work and the duration of symptoms, this would be less likely. Patient is comfortable with discharge home at this point. Rx for Toradol and Zofran provided with dosing instructions reviewed. Patient is instructed to take the Toradol with Tylenol if needed and avoid any other [id number] anti-inflammatories such as ibuprofen with the Toradol. Otherwise advised follow up with her PCP and [employer]. Undiagnosed new problem with uncertain prognosis? @ -None Drug Therapy requiring intensive monitoring for toxicity (Heparin, Nitro, Insulin, Cardizem)? @ -None Were any procedures done? @ -None Diagnosis/symptom? @ -Pelvic pain Acute, or Chronic, or Acute on Chronic? @ -Acute Uncomplicated (without systemic symptoms) or Complicated (systemic symptoms)? @ -Uncomplicated Side effects of treatment? @ -None Exacerbation, Progression, or Severe Exacerbation] @ -Not applicable Poses a threat to life or bodily function? @ -No Return precautions reviewed in depth, the patient is instructed to return to the emergency department with any new, worsening, or concerning symptoms. Patient verbalized understanding. This case was discussed in detail with the attending ED physician, Dr. England. Presentation, findings, and treatment plan discussed in detail as well. - Lab Data Result diagrams: 06/02/23 16:45 06/02/23 16:45 Lab Results 06/02/23 06/02/23 06/02/23 Range/Units 16:45 16:45 16:45 WBC 9.9 (3.8-10.6) k/uL RBC 4.73 (3.80-5.40) m/uL Hgb 13.6 (11.4-16.0) gm/dL Hct 41.0 (34.0-46.0) % MCV 86.7 (80.0-100.0) fL MCH 28.8 (25.0-35.0) pg MCHC 33.2 (31.0-37.0) g/dL RDW 13.2 (11.5-15.5) % Plt Count 319 (150-450) k/uL MPV 7.9 Neutrophils % 75 % Lymphocytes % 17 % Monocytes % 4 % Eosinophils % 4 % Basophils % 0 % Neutrophils # 7.4 (1.3-7.7) k/uL Lymphocytes # 1.6 (1.0-4.8) k/uL Monocytes # 0.4 (0-1.0) k/uL Eosinophils # 0.4 (0-0.7) k/uL Basophils # 0.0 (0-0.2) k/uL Sodium 138 (137-145) mmol/L Potassium 4.1 (3.5-5.1) mmol/L Chloride 103 (98-107) mmol/L Carbon Dioxide 28 (22-30) mmol/L Anion Gap 7 mmol/L BUN 10 (7-17) mg/dL Creatinine 0.61 (0.52-1.04) mg/dL Est GFR (CKD-EPI)AfAm >90 (>60 ml/min/1.73 sqM) Est GFR (CKD-EPI)NonAf >90 (>60 ml/min/1.73 sqM) Glucose 117 H (74-99) mg/dL Plasma Lactic Acid [place] (0.7-2.0) mmol/L Calcium 8.8 (8.4-10.2) mg/dL Total Bilirubin 0.4 (0.2-1.3) mg/dL AST 26 (14-36) U/L ALT 24 (4-34) U/L Alkaline Phosphatase 65 (38-126) U/L Total Protein 7.0 (6.3-8.2) g/dL Albumin 3.9 (3.5-5.0) g/dL Amylase 35 (30-110) U/L Lipase 76 (23-300) U/L Urine Color Yellow Urine Appearance Cloudy H (Clear) Urine pH 5.5 (5.0-8.0) Ur Specific [place] 1.026 (1.001-1.035) Urine Protein Trace H (Negative) Urine Glucose (UA) Negative (Negative) Urine Ketones Negative (Negative) Urine Blood Large H (Negative) Urine Nitrite Negative (Negative) Urine Bilirubin Negative (Negative) Urine Urobilinogen <2.0 (<2.0) mg/dL Ur Leukocyte Esterase Large H (Negative) Urine RBC 8 H (0-5) /hpf Urine WBC 78 H (0-5) /hpf Ur Squamous Epith Cells 14 H (0-4) /hpf Urine Bacteria Rare H (None) /hpf Urine Mucus Many H (None) /hpf Urine HCG, Qual (Not Detectd) 06/02/23 06/02/23 Range/Units 16:45 16:46 WBC (3.8-10.6) k/uL RBC (3.80-5.40) m/uL Hgb (11.4-16.0) gm/dL Hct (34.0-46.0) % MCV (80.0-100.0) fL MCH (25.0-35.0) pg MCHC (31.0-37.0) g/dL RDW (11.5-15.5) % Plt Count (150-450) k/uL MPV Neutrophils % % Lymphocytes % % Monocytes % % Eosinophils % % Basophils % % Neutrophils # (1.3-7.7) k/uL Lymphocytes # (1.0-4.8) k/uL Monocytes # (0-1.0) k/uL Eosinophils # (0-0.7) k/uL Basophils # (0-0.2) k/uL Sodium (137-145) mmol/L Potassium (3.5-5.1) mmol/L Chloride (98-107) mmol/L Carbon Dioxide (22-30) mmol/L Anion Gap mmol/L BUN (7-17) mg/dL Creatinine (0.52-1.04) mg/dL Est GFR (CKD-EPI)AfAm (>60 ml/min/1.73 sqM) Est GFR (CKD-EPI)NonAf (>60 ml/min/1.73 sqM) Glucose (74-99) mg/dL Plasma Lactic Acid [place] 1.3 (0.7-2.0) mmol/L Calcium (8.4-10.2) mg/dL Total Bilirubin (0.2-1.3) mg/dL AST (14-36) U/L ALT (4-34) U/L Alkaline Phosphatase (38-126) U/L Total Protein (6.3-8.2) g/dL Albumin (3.5-5.0) g/dL Amylase (30-110) U/L Lipase (23-300) U/L Urine Color Urine Appearance (Clear) Urine pH (5.0-8.0) Ur Specific [place] (1.001-1.035) Urine Protein (Negative) Urine Glucose (UA) (Negative) Urine Ketones (Negative) Urine Blood (Negative) Urine Nitrite (Negative) Urine Bilirubin (Negative) Urine Urobilinogen (<2.0) mg/dL Ur Leukocyte Esterase (Negative) Urine RBC (0-5) /hpf Urine WBC (0-5) /hpf Ur Squamous Epith Cells (0-4) /hpf Urine Bacteria (None) /hpf Urine Mucus (None) /hpf Urine HCG, Qual Not Detected (Not Detectd) - Radiology Data Radiology results: report reviewed, image reviewed Disposition Clinical Impression: Right lower quadrant pain Disposition: HOME SELF-CARE Instructions (If sedation given, give patient instructions): Pelvic Pain in Women (ED), Abdominal Pain (ED) Additional Instructions: Return to the emergency department with any new, worsening, or concerning symptoms. Take the Toradol with Tylenol as needed for pain relief. Take the [place] sparingly when your pain is the most severe and be aware that it may make you drowsy. You can take the Zofran up to every 8 hours as needed for nausea and vomiting. Follow up with your primary care provider in 1-2 days. Prescriptions: Ketorolac [Toradol] 10 mg PO Q6HR PRN #15 tab PRN Reason: Pain Ondansetron Odt [Zofran Odt] 4 mg PO Q8HR PRN #20 tab PRN Reason: Nausea And Vomiting Is patient prescribed a controlled substance at d/c from ED?: Yes When asked, does pt state using other controlled substances?: No If prescribed controlled substance>3 days was MAPS reviewed?: Prescribed <3 Days Referrals: None,Stated [Primary Care Provider] - 1-2 days
[2023-06-02 17:00] LABS: Basophils % (A) 0 %; Eosinophils # (A) 0.4 k/uL (0-0.7); Eosinophils % (A) 4 %; HGB 13.6 gm/dL (11.4-16.0); Lymphocytes # (A) 1.6 k/uL (1.0-4.8); Lymphocytes % (A) 17 %; MCH 28.8 pg (25.0-35.0); MCHC 33.2 g/dL (31.0-37.0); MCV 86.7 fL (80.0-100.0); Mean Platelet Volume 7.9; Monocytes # (A) 0.4 k/uL (0-1.0); Monocytes % (A) 4 %; Neutrophils # (A) 7.4 k/uL (1.3-7.7); Neutrophils % (A) 75 %; Platelet Count 319 k/uL (150-450); RBC 4.73 m/uL (3.80-5.40); RDW 13.2 % (11.5-15.5); WBC 9.9 k/uL (3.8-10.6)
[2023-06-02 17:16] VITALS: RESP 18
[2023-06-02 17:18] LABS: Appearance,Urine Cloudy (Clear); Bacteria,Urine Rare /hpf; Bilirubin,Urine Negative (Negative); Blood,Urine Large (Negative); Color,Urine Yellow; Glucose,Urine (UA) Negative (Negative); Ketones,Urine Negative (Negative); Leukocyte Esterase,Urine Large (Negative); Mucus,Urine Many /hpf; Nitrite,Urine Negative (Negative); PH, Urine 5.5 (5.0-8.0); Protein,Urine Trace (Negative); RBC,Urine 8 /hpf (0-5); Specific Gravity,Urine 1.026 (1.001-1.035); Squamous Epithelial Cell,Urine 14 /hpf (0-4); Urobilinogen,Urine <2.0 mg/dL (<2.0); WBC,Urine 78 /hpf (0-5)
[2023-06-02 17:20] LABS: ALT 24 U/L (4-34); AST 26 U/L (14-36); African American GFR (CKD) >90 (>60 ml/min/1.73 sqM); Albumin 3.9 g/dL (3.5-5.0); Alkaline Phosphatase 65 U/L (38-126); Amylase 35 U/L (30-110); Anion Gap 7 mmol/L; Blood Urea Nitrogen 10 mg/dL (7-17); Calcium 8.8 mg/dL (8.4-10.2); Carbon Dioxide 28 mmol/L (22-30); Chloride 103 mmol/L (98-107); Glucose 117 mg/dL (74-99); Lipase 76 U/L (23-300); Non-African American GFR(CKD) >90 (>60 ml/min/1.73 sqM); Potassium 4.1 mmol/L (3.5-5.1); Sodium 138 mmol/L (137-145); Total Bilirubin 0.4 mg/dL (0.2-1.3)
[2023-06-02 17:50] VITALS: BP 127/78; PULSE 78
--- NOTE | 2023-06-02 18:14 | US ---
EXAMINATION TYPE: US transvaginal DATE OF EXAM: 06/02/2023 COMPARISON: 05/13/23 CLINICAL INDICATION: Female, 42 years old with history of Right sided pelvic pain, hx of ovarian cyst ; Hx of cyst on rt ovary TECHNIQUE: Transvaginal (TV). Date of LMP: 05/20/23 EXAM MEASUREMENTS: Uterus: 10.4 x 5.9 x 4.9 cm Endometrial Stripe: 1.3 cm Right Ovary: Not seen cm Left Ovary: 5.2 x 4.0 x3.4 cm 1. Uterus: Anteverted Multiple hypoechoic areas seen in cervix compatible with nabothian cysts. 2. Endometrium: wnl 3. Right Ovary: Not seen due to bowel gas and bladder 4. Left Ovary: Limited due to bowel gas. No mass visualized 5. Bilateral Adnexa: limited due to bowel gas 6. Posterior cul-de-sac: wnl IMPRESSION: 1. No evidence for acute process. 2. Nonvisualization the right ovary secondary to patient body habitus/bowel gas. Consider nonemergen t MRI if clinically warranted.
== END 2023-06-02 18:45 | disposition home or self-care (01) ==
LOC: EC 15:29
DX: R10.31 Right lower quadrant pain (principal); R10.2 Pelvic and perineal pain; I10 Essential (primary) hypertension; J45.909 Unspecified asthma, uncomplicated; Z88.5 Allergy status to narcotic agent; Z88.6 Allergy status to analgesic agent; Z88.8 Allergy status to other drugs, medicaments and biological substances; Z91.041 Radiographic dye allergy status; Z91.09 Other allergy status, other than to drugs and biological substances; Z90.49 Acquired absence of other specified parts of digestive tract; Z86.73 Personal history of transient ischemic attack (TIA), and cerebral infarction without residual deficits
CPT/HCPCS: 36415; 80053; 82150; 83605; 83690; 85025; 81001; 81025; 87086; 76830; 99285; 96374; 96375; 96361; J2270; J1885

== ENCOUNTER 2023-07-30 21:52 | Emergency (ER) | payer MEDICARE, OTHER ==
[2023-07-30 22:12] VITALS: BP 133/88; PULSE 89; RESP 20; TEMP 98.3
[2023-07-30] MEDS ORDERED: MORPHINE SULFATE 4 MG/ML SYRINGE IM STA (22:30)
--- NOTE | 2023-07-30 22:31 | ED ---
Abdominal Pain HPI - General Chief Complaint: Abdominal Pain Stated Complaint: Ovarian Cyst Time Seen by Provider: 07/30/23 22:01 Source: patient, RN notes reviewed, old records reviewed Mode of arrival: ambulatory Limitations: no limitations - History of Present Illness Initial Comments: This is a 42-year-old female to the emergency department today today. She presents today for evaluation of abdominal pain which feels a prior issues with ovarian cyst concern for ovarian cyst or ovarian cyst rupture. Patient having significant abdominal pain here in the ER does admit to some dysuria. No nausea vomiting no fevers occasional diarrhea. No travel history no sick contacts no other complaints MD Complaint: abdominal pain (Suprapubic) -: days(s) Location: suprapubic Migration to: suprapubic Severity: moderate Severity scale (1-10): 4 Quality: cramping Consistency: intermittent Improves With: nothing Worsens With: nothing Associated Symptoms: denies other symptoms Treatments Prior to Arrival: other (0) - Related Data Previous Rx's Medication Instructions Recorded Cephalexin [Keflex] 250 mg PO Q6HR #20 cap 05/13/23 Ketorolac [Toradol] 10 mg PO Q6HR PRN #15 tab 06/02/23 Ondansetron Odt [Zofran Odt] 4 mg PO Q8HR PRN #20 tab 06/02/23 Amoxic-Pot Clav 875-125Mg 1 tab PO BID 7 Days #14 tab 07/31/23 [Augmentin 875-125] Allergies Allergy/AdvReac Type Severity Reaction Status Date / Time Iodinated Contrast Media Allergy Rash/Hives Verified 07/30/23 21:57 [Iodinated Contrast Media - IV Dye] iodine Allergy Rash/Hives Verified 07/30/23 21:57 Iodine and Iodide Containing Allergy Rash/Hives Verified 07/30/23 21:57 Produc bupropion HCl AdvReac Unknown Homicidal Verified 07/30/23 21:57 [From Wellbutrin] Ideation aspirin AdvReac Nausea & Verified 07/30/23 21:57 Vomiting hydromorphone HCl AdvReac Diarrhea Verified 07/30/23 21:57 [From Dilaudid] propoxyphene napsylate AdvReac Nausea & Verified 07/30/23 21:57 [From Darvocet-N] Vomiting steroids Allergy Rash/Hives Uncoded 07/30/23 21:57 Review of Systems ROS Statement: Those systems with pertinent positive or pertinent negative responses have been documented in the HPI. ROS Other: All systems not noted in ROS Statement are negative. Past Medical History Past Medical History: Asthma, CVA/TIA, Hypertension, Seizure Disorder, Thyroid Disorder Additional Past Medical History / Comment(s): 11/2017 TIA or CVA (pt unsure) with resolved L sided weakness/aphasia but states still has short term memory loss, last seizure in 2016, frequent kidney infections, kidney stones she passed on her own, chronic cervical and low back pain, past fractured coccyx, gestational diabetes. ovarian cyst History of Any Multi-Drug Resistant Organisms: MRSA Date of last positivie culture/infection: 1999,2013, 2016 MDRO Source:: right leg Past Surgical History: Appendectomy, Section, Cholecystectomy, Tonsillectomy, Tubal Ligation Additional Past Surgical History / Comment(s): Multiple ear surgeries (x15 left ear & 13 right ear) ended up with eardrum replacements, x2 Past Anesthesia/Blood Transfusion Reactions: No Reported Reaction Additional Past Anesthesia/Blood Transfusion Reaction / Comment(s): PT STATES DIFFICULTY WAKING UP. PTS FATHER ALSO HAS DIFFICULTY WAKING UP. Past Psychological History: ADD/ADHD, Anxiety Smoking Status: Never smoker Past Alcohol Use History: None Reported Past Drug Use History: None Reported - Past Family History Mother Family Medical History: Cancer Additional Family Medical History / Comment(s): KIDNEY CANCER- in 2012 at the age of 68yrs. Father Family Medical History: CVA/TIA, Myocardial Infarction ([place]) Additional Family Medical History / Comment(s): Father had 8 CVAs and 2 MIs. His first [place] was at age 69yrs and 2nd [place] was at age 71yrs. He has a pacemaker. He is dyslexic. General Exam Limitations: no limitations General appearance: alert, in no apparent distress Head exam: Present: atraumatic, normocephalic, normal inspection Eye exam: Present: normal appearance, PERRL, EOMI. Absent: scleral icterus, conjunctival injection, periorbital swelling ENT exam: Present: normal exam, mucous membranes moist Neck exam: Present: normal inspection. Absent: tenderness, meningismus, lymphadenopathy Respiratory exam: Present: normal lung sounds bilaterally. Absent: respiratory distress, wheezes, rales, rhonchi, stridor Cardiovascular Exam: Present: regular rate, normal rhythm, normal heart sounds. Absent: systolic murmur, diastolic murmur, rubs, gallop, clicks GI/Abdominal exam: Present: soft, tenderness, normal bowel sounds. Absent: distended, guarding, rebound, rigid Extremities exam: Present: normal inspection, full ROM, normal capillary refill. Absent: tenderness, pedal edema, joint swelling, calf tenderness Back exam: Present: normal inspection Neurological exam: Present: alert, oriented X3, CN II-XII intact Psychiatric exam: Present: normal affect, normal mood Skin exam: Present: warm, dry, intact, normal color. Absent: rash Course Vital Signs 07/30/23 21:54 Temperature 98.3 F Pulse Rate 89 Respiratory 20 Rate Blood Pressure 133/88 O2 Sat by Pulse 96 Oximetry - Reevaluation(s) Reevaluation #1: 07/30/23 Medical record is reviewed Reevaluation #2: 07/30/23 Patient symptoms are improved Reevaluation #3: 07/30/23 Patient informed of results and questions answered Reevaluation #4: Was pt. sent in by a medical professional or institution (, PA, INSTRUMENT MAN, urgent care, hospital, or prison...) When possible be specific @ -no Did you speak to anyone other than the patient for history (EMS, parent, family, police, friend...)? What history was obtained from this source @ -no Did you review nursing and triage notes (agree or disagree)? Why? @ -agree Are old charts reviewed (outside hosp., previous admission, EMS record, old EKG, old radiological studies, urgent care reports/EKG's, prison records)? Report findings @ -yes Differential Diagnosis (chest pain, altered mental status, abdominal pain women, abdominal pain men, vaginal bleeding, weakness, fever, dyspnea, syncope, headache, dizziness, GI bleed, back pain, seizure, CVA, palpatations, mental health, musculoskeletal)? @ -prior EKG interpreted by me (3pts min.). @ -no X-rays interpreted by me (1pt min.). @ -no CT interpreted by me (1pt min.). @ -no U/S interpreted by me (1pt. min.). @ -yes What testing was considered but not performed or refused? (CT, X-rays, U/S, labs)? Why? @ -none What meds were considered but not given or refused? Why? @ -none Did you discuss the management of the patient with other professionals (professionals i.e. , PA, INSTRUMENT MAN, lab, RT, psych nurse, social media job titles, nut grinder, teacher, mail officer, block and case maker)? Give summary @ -no Was smoking cessation discussed for >3mins.? @ -no Was critical care preformed (if so, how long)? @ -no Were there social determinants of health that impacted care today? How? (Homelessness, low income, unemployed, alcoholism, drug addiction, transportation, low edu. Level, literacy, decrease access to med. care, long-term, rehab)? @ -none Was there de-escalation of care discussed even if they declined (Discuss DNR or withdrawal of care, Hospice)? DNR status @ -no What co-morbidities impacted this encounter? (DM, HTN, Smoking, COPD, CAD, Cancer, CVA, ARF, Chemo, Hep., AIDS, mental health diagnosis, sleep apnea, morbid obesity)? @ -none Was patient admitted / discharged? Hospital course, mention meds given and route, prescriptions, significant lab abnormalities, going to OR and other pertinent info. @ - 42 female to the emergency department for evaluation of abdominal pain found of urinary tract infection. Patient was placed on antibiotics and can be discharged home Discharge Undiagnosed new problem with uncertain prognosis? @ -no Drug Therapy requiring intensive monitoring for toxicity (Heparin, Nitro, Insulin, Cardizem)? @ -no Were any procedures done? @ -no Diagnosis/symptom? @ -Abdominal pain, UTI Acute, or Chronic, or Acute on Chronic? @ -Acute Uncomplicated (without systemic symptoms) or Complicated (systemic symptoms)? @ -Complicated Side effects of treatment? @ -no Exacerbation, Progression, or Severe Exacerbation? @ -exacerbation Poses a threat to life or bodily function? How? (Chest pain, [place], [place], pneumonia, PE, COPD, DKA, ARF, appy, cholecystitis, CVA, Diverticulitis, Homicidal, Suicidal, threat to staff... and all critical care pts) @ -no Reevaluation #5: Differential Abdominal Pain Women: Appendicitis, Cholecystitis, diverticulosis, ischemic bowel, pancreatitis, hepatitis, UTI, gastroenteritis, AAA, incarcerated hernia, bowel obstruction, constipation, inflammatory bowel, hepatitis, peptic ulcer disease, splenic infarction, perforated viscus, vulvitis, ovarian torsion, PID, kidney stone, placenta abruption, this is not meant to be an all-inclusive list Medical Decision Making - Medical Decision Making 42 female to the emergency department for evaluation of abdominal pain found of urinary tract infection. Patient was placed on antibiotics and can be discharged home - Lab Data Lab Results 07/30/23 Range/Units 23:33 Urine Color Yellow Urine Appearance Turbid H (Clear) Urine pH 5.5 (5.0-8.0) Ur Specific [place] 1.034 (1.001-1.035) Urine Protein 1+ H (Negative) Urine Glucose (UA) Negative (Negative) Urine Ketones Trace H (Negative) Urine Blood Large H (Negative) Urine Nitrite Negative (Negative) Urine Bilirubin Negative (Negative) Urine Urobilinogen <2.0 (<2.0) mg/dL Ur Leukocyte Esterase Large H (Negative) Urine RBC 50 H (0-5) /hpf Urine WBC 87 H (0-5) /hpf Ur Squamous Epith Cells 19 H (0-4) /hpf Amorphous Sediment Few H (None) /hpf Urine Bacteria Occasional H (None) /hpf Hyaline Casts 130 H (0-2) /lpf Urine Mucus Moderate H (None) /hpf - Radiology Data Radiology results: report reviewed (US Pelvis Is Negative for Acute Disease), image reviewed Disposition Clinical Impression: Abdominal pain, UTI (urinary tract infection) Disposition: HOME SELF-CARE Instructions (If sedation given, give patient instructions): Urinary Tract Infection in Women (ED), Abdominal Pain (ED) Prescriptions: Amoxic-Pot Clav 875-125Mg [Augmentin 875-125] 1 tab PO BID 7 Days #14 tab Is patient prescribed a controlled substance at d/c from ED?: No Referrals: None,Stated [Primary Care Provider] - 1-2 days Time of Disposition: 01:20
[2023-07-31 00:44] LABS: Amorphous Sediment,Urine Few /hpf; Appearance,Urine Turbid (Clear); Bacteria,Urine Occasional /hpf; Bilirubin,Urine Negative (Negative); Blood,Urine Large (Negative); Color,Urine Yellow; Glucose,Urine (UA) Negative (Negative); Hyaline Casts,Urine 130 /lpf (0-2); Ketones,Urine Trace (Negative); Leukocyte Esterase,Urine Large (Negative); Mucus,Urine Moderate /hpf; Nitrite,Urine Negative (Negative); PH, Urine 5.5 (5.0-8.0); Protein,Urine 1+ (Negative); RBC,Urine 50 /hpf (0-5); Specific Gravity,Urine 1.034 (1.001-1.035); Squamous Epithelial Cell,Urine 19 /hpf (0-4); Urobilinogen,Urine <2.0 mg/dL (<2.0); WBC,Urine 87 /hpf (0-5)
[2023-07-31] MEDS ORDERED: Acetaminophen-Codeine 300-30mg TAB PO STA (01:01)
[2023-07-31] MEDS ORDERED: AMOXIC-POT CLAV 875-125MG 1 EACH TAB PO STA (01:01)
--- NOTE | 2023-07-31 01:22 | US ---
EXAM: US Pelvis Transabdominal and Transvaginal, Complete and US Duplex Arterial/Venous of the Pelvis, Complete CLINICAL HISTORY: US Reason: cyst TECHNIQUE: Real-time complete transabdominal and transvaginal pelvic ultrasound with image documentation. Transvaginal imaging was used for better evaluation of the endometrium and adnexa. Real-time duplex ultrasound scan of the arterial and venous flow of the pelvis with color Doppler flow and spectral waveform analysis. COMPARISON: June 02, [address] from May 13, 2023 FINDINGS: Uterus/cervix: The uterus measures 9.9 x 4.8 x 6.5 cm, 160 mL and is anteverted. The endometrial stripe measures 1.5 cm with normal smooth contour. There are several nabothian cysts in the cervix. No myometrial mass. Right ovary: The right ovary is not visible. Left ovary: The left ovary measures 6.3 x 4.5 x 4.3 cm, 63 mL with a 5. 6 x 4.5 x 4 cm simple cyst within it. Doppler blood flow is normal. Free fluid: No free fluid. Bladder: Unremarkable as visualized. Wall is normal thickness for degree of distention. IMPRESSION: 5.6 cm simple cyst in the left ovary. No evidence of torsion. The right ovary is not visible. No free fluid.
== END 2023-07-31 01:32 | disposition home or self-care (01) ==
LOC: EC 21:52
DX: N39.0 Urinary tract infection, site not specified (principal); J45.909 Unspecified asthma, uncomplicated; I10 Essential (primary) hypertension; Z86.59 Personal history of other mental and behavioral disorders; Z91.041 Radiographic dye allergy status; Z88.6 Allergy status to analgesic agent; Z88.5 Allergy status to narcotic agent; Z88.8 Allergy status to other drugs, medicaments and biological substances
CPT/HCPCS: 81001; 93976; 76830; 99285; 96372; J2270

== ENCOUNTER 2023-09-06 14:59 | Emergency (ER) | payer MEDICARE, OTHER ==
[2023-09-06 15:41] VITALS: TEMP 98
--- NOTE | 2023-09-06 15:47 | ED ---
General Adult HPI - General Source: patient, RN notes reviewed Mode of arrival: ambulatory Limitations: no limitations <Sha Ayala - Last Filed: 09/06/23 15:46> <Alan Miguel - Last Filed: 09/06/23 17:18> - General Chief complaint: Back Pain/Injury Stated complaint: BACK PAIN Time Seen by Provider: 09/06/23 15:46 - History of Present Illness Initial comments: 42-year-old female presents emergency department chief complaint of of back pain. Patient states that she's having low back pain without injury denies any bowel, bladder incontinence or retention or saddle anesthesias or lower extremity (Sha Ayala) 42-year-old female presents to ED with a chief complaint of back pain. Patient states yesterday woke up with lower left-sided back pain. Denies any injury. She states pain is constant nature. Patient describes it as dull and becoming sharp with movement. No saddle anesthesia or incontinence. Denies dysuria, frequency, urgency, hematuria. Denies fever. Denies weakness. No chest pain or shortness of breath. No other complaints. (Alan Miguel) - Related Data Previous Rx's Medication Instructions Recorded Cephalexin [Keflex] 250 mg PO Q6HR #20 cap 05/13/23 Ketorolac [Toradol] 10 mg PO Q6HR PRN #15 tab 06/02/23 Ondansetron Odt [Zofran Odt] 4 mg PO Q8HR PRN #20 tab 06/02/23 Amoxic-Pot Clav 875-125Mg 1 tab PO BID 7 Days #14 tab 07/31/23 [Augmentin 875-125] Acetaminophen Tab [Tylenol] 650 mg PO Q6H #30 tab 09/06/23 Ketorolac [Toradol] 10 mg PO Q8HR #15 tab 09/06/23 methocarbamoL [Robaxin-750] 750 mg PO QID PRN #15 tab 09/06/23 Allergies Allergy/AdvReac Type Severity Reaction Status Date / Time Iodinated Contrast Media Allergy Rash/Hives Verified 09/06/23 15:22 [Iodinated Contrast Media - IV Dye] iodine Allergy Rash/Hives Verified 09/06/23 15:22 Iodine and Iodide Containing Allergy Rash/Hives Verified 09/06/23 15:22 Produc bupropion HCl AdvReac Unknown Homicidal Verified 09/06/23 15:22 [From Wellbutrin] Ideation aspirin AdvReac Nausea & Verified 09/06/23 15:22 Vomiting hydromorphone HCl AdvReac Diarrhea Verified 09/06/23 15:22 [From Dilaudid] propoxyphene napsylate AdvReac Nausea & Verified 09/06/23 15:22 [From Darvocet-N] Vomiting steroids Allergy Rash/Hives Uncoded 07/30/23 21:57 Review of Systems ROS Other: All systems not noted in ROS Statement are negative. <Sha Ayala - Last Filed: 09/06/23 15:46> ROS Other: All systems not noted in ROS Statement are negative. <Alan Miguel - Last Filed: 09/06/23 17:18> ROS Statement: Those systems with pertinent positive or pertinent negative responses have been documented in the HPI. Past Medical History Past Medical History: Asthma, CVA/TIA, Hypertension, Seizure Disorder, Thyroid Disorder Additional Past Medical History / Comment(s): 11/2017 TIA or CVA (pt unsure) with resolved L sided weakness/aphasia but states still has short term memory loss, last seizure in 2016, frequent kidney infections, kidney stones she passed on her own, chronic cervical and low back pain, past fractured coccyx, gestational diabetes. ovarian cyst History of Any Multi-Drug Resistant Organisms: MRSA Date of last positivie culture/infection: 1999,2013, 2016 MDRO Source:: right leg Past Surgical History: Appendectomy, Section, Cholecystectomy, Tonsillectomy, Tubal Ligation Additional Past Surgical History / Comment(s): Multiple ear surgeries (x15 left ear & 13 right ear) ended up with eardrum replacements, x2 Past Anesthesia/Blood Transfusion Reactions: No Reported Reaction Additional Past Anesthesia/Blood Transfusion Reaction / Comment(s): PT STATES DIFFICULTY WAKING UP. PTS FATHER ALSO HAS DIFFICULTY WAKING UP. Past Psychological History: ADD/ADHD, Anxiety Smoking Status: Never smoker Past Alcohol Use History: None Reported Past Drug Use History: None Reported - Past Family History Mother Family Medical History: Cancer Additional Family Medical History / Comment(s): KIDNEY CANCER- in 2012 at the age of 68yrs. Father Family Medical History: CVA/TIA, Myocardial Infarction ([place]) Additional Family Medical History / Comment(s): Father had 8 CVAs and 2 MIs. His first [place] was at age 69yrs and 2nd [place] was at age 71yrs. He has a pacemaker. He is dyslexic. <Sha Ayala - Last Filed: 09/06/23 15:46> General Exam Limitations: no limitations <Sha Ayala - Last Filed: 09/06/23 15:46> General appearance: alert, in no apparent distress, obese Eye exam: Present: normal appearance Respiratory exam: Present: normal lung sounds bilaterally Cardiovascular Exam: Present: regular rate, normal rhythm GI/Abdominal exam: Present: soft (No tenderness to palpation. No rebound guarding or rigidity.) Extremities exam: Present: normal inspection, other (Strength And sensation equal and symmetric in bilateral lower extremities.) Back exam: Present: normal inspection, other (Lower left paraspinal tenderness to palpation.) Neurological exam: Present: alert, oriented X3 <Alan Miguel - Last Filed: 09/06/23 17:18> - General Exam Comments Initial Comments: Visual Physical Exam Vital signs reviewed General: Well-appearing, nontoxic, no acute distress. Head: Normocephalic, atraumatic Eyes: PERRLA, EOMI ENT: Airway patent Chest: Nonlabored breathing Skin: No visual rash, normal skin tone Neuro: Alert and oriented 3 Musculoskeletal: No gross abnormalities (Sha Ayala) Course Vital Signs 09/06/23 15:21 Temperature 98.0 F Pulse Rate 75 Respiratory 18 Rate Blood Pressure 126/66 O2 Sat by Pulse 96 Oximetry Medical Decision Making <Sha Ayala - Last Filed: 09/06/23 15:46> <Alan Miguel - Last Filed: 09/06/23 17:18> - Medical Decision Making I completed the quick note portion of this chart signed Sha Ayala PA-C (Sha Ayala) Was pt. sent in by a medical professional or institution (CARYN Leal, INSTALLATION MANAGER, urgent care, hospital, or jail...) When possible be specific @ -No Did you speak to anyone other than the patient for history (EMS, parent, family, police, friend...)? What history was obtained from this source @ -No Did you review nursing and triage notes (agree or disagree)? Why? @ -I reviewed and agree with nursing and triage notes Were old charts reviewed (outside hosp., previous admission, EMS record, old EKG, old radiological studies, urgent care reports/EKG's, jail records)? Report findings @ -No old charts were reviewed Differential Diagnosis (chest pain, altered mental status, abdominal pain women, abdominal pain men, vaginal bleeding, weakness, fever, dyspnea, syncope, headache, dizziness, GI bleed, back pain, seizure, CVA, palpatations, mental health, musculoskeletal)? @ -Differential Musculoskeletal Muscular strain, contusion, ligament sprain, fracture, arthritis, septic arthritis, bursitis, cellulitis, muscle spasm, nerve compression, DVT, arterial occlusion, herpes zoster, electrolyte abnormality, tumor.... This is not meant to be in all inclusive list EKG interpreted by me (3pts min.). @ -As above X-rays interpreted by me (1pt min.). @ -X-ray of the lumbar spine interpreted by me showing some facet atrophy no evidence of acute findings. CT interpreted by me (1pt min.). @ -None done U/S interpreted by me (1pt. min.). @ -None done What testing was considered but not performed or refused? (CT, X-rays, U/S, labs)? Why? @ -None What meds were considered but not given or refused? Why? @ -None Did you discuss the management of the patient with other professionals (professionals i.e. , PA, INSTALLATION MANAGER, lab, RT, psych nurse, social service director, data systems manager, teacher, aircraft electronics technical officer, case planner)? Give summary @ -No Was smoking cessation discussed for >3mins.? @ -No Was critical care preformed (if so, how long)? @ -No Were there social determinants of health that impacted care today? How? (Homelessness, low income, unemployed, alcoholism, drug addiction, transportation, low edu. Level, literacy, decrease access to med. care, skilled nursing, rehab)? @ -No Was there de-escalation of care discussed even if they declined (Discuss DNR or withdrawal of care, Hospice)? DNR status @ -No What co-morbidities impacted this encounter? (DM, HTN, Smoking, COPD, CAD, Cancer, CVA, ARF, Chemo, Hep., AIDS, mental health diagnosis, sleep apnea, morbid obesity)? @ -Obesity Was patient admitted / discharged? Hospital course, mention meds given and route, prescriptions, significant lab abnormalities, going to OR and other pertinent info. @ -Discharge 42-year-old female presents to ED with a chief complaint of back pain. Exam shows full strength and sensation in bilateral lower extremities. Patient denies saddle anesthesia or incontinence. X-ray did show some facet atrophy however no evidence of acute finding. Urine shows no evidence of blood or infection. Symptoms likely musculoskeletal in nature. Provided prescription for Toradol, acetaminophen, and methocarbamol.Patient discharged home in stable condition. Discussed return precautions with patient who verbalized agreement. Undiagnosed new problem with uncertain prognosis? @ -No Drug Therapy requiring intensive monitoring for toxicity (Heparin, Nitro, Insulin, Cardizem)? @ -No Were any procedures done? @ -No Diagnosis/symptom? @ -Back pain Acute, or Chronic, or Acute on Chronic? @ -Acute Uncomplicated (without systemic symptoms) or Complicated (systemic symptoms)? @ -Uncomplicated Side effects of treatment? @ -No Exacerbation, Progression, or Severe Exacerbation? @ -No Poses a threat to life or bodily function? How? (Chest pain, [place], [place], pneumonia, PE, COPD, DKA, ARF, appy, cholecystitis, CVA, Diverticulitis, Homicidal, Suicidal, threat to staff... and all critical care pts) @ -No (Alan Miguel) - Lab Data Lab Results 09/06/23 Range/Units 16:28 Urine Color Light Yellow Urine Appearance Clear (Clear) Urine pH 6.0 (5.0-8.0) Ur Specific Cory 1.020 (1.001-1.035) Urine Protein Negative (Negative) Urine Glucose (UA) Negative (Negative) Urine Ketones Negative (Negative) Urine Blood Negative (Negative) Urine Nitrite Negative (Negative) Urine Bilirubin Negative (Negative) Urine Urobilinogen <2.0 (<2.0) mg/dL Ur Leukocyte Esterase Negative (Negative) Disposition <Sha Ayala - Last Filed: 09/06/23 15:46> Is patient prescribed a controlled substance at d/c from ED?: No Time of Disposition: 17:18 <Alan Miguel - Last Filed: 09/06/23 17:18> Clinical Impression: Back pain Disposition: HOME SELF-CARE Condition: Good Instructions (If sedation given, give patient instructions): Acute Low Back Pain (ED) Additional Instructions: Please return to the Emergency Department if symptoms worsen or any other concerns. Please follow-up with your primary care provider. Prescriptions: methocarbamoL [Robaxin-750] 750 mg PO QID PRN #15 tab PRN Reason: Pain Ketorolac [Toradol] 10 mg PO Q8HR #15 tab Acetaminophen Tab [Tylenol] 650 mg PO Q6H #30 tab Referrals: None,Stated [Primary Care Provider] - 1-2 days
--- NOTE | 2023-09-06 16:18 | XR ---
EXAMINATION TYPE: XR lumbar spine 2 or 3V DATE OF EXAM: 09/06/2023 Comparison: 05/24/2022 Clinical History: 42-year-old female with pain Findings: Cholecystectomy clips. 5 lumbar type vertebral bodies. Mild facet arthropathy lower lumbar spine. Marcy tebral body heights are preserved and alignment is maintained. Impression: Mild facet arthropathy lower lumbar spine. No vertebral compression collapse or malalignment.
[2023-09-06] MEDS ORDERED: KETOROLAC 15 MG/ML 1 ML VIAL IM STA (16:38)
[2023-09-06 16:56] LABS: Appearance,Urine Clear (Clear); Bilirubin,Urine Negative (Negative); Blood,Urine Negative (Negative); Color,Urine Light Yellow; Glucose,Urine (UA) Negative (Negative); Ketones,Urine Negative (Negative); Leukocyte Esterase,Urine Negative (Negative); Nitrite,Urine Negative (Negative); Protein,Urine Negative (Negative); Urobilinogen,Urine <2.0 mg/dL (<2.0)
[2023-09-06 17:44] VITALS: BP 122/60; PULSE 74; RESP 14
== END 2023-09-06 17:27 | disposition home or self-care (01) ==
LOC: EC 14:59
DX: M47.816 Spondylosis without myelopathy or radiculopathy, lumbar region (principal); J45.909 Unspecified asthma, uncomplicated; I10 Essential (primary) hypertension; Z86.59 Personal history of other mental and behavioral disorders; Z91.041 Radiographic dye allergy status; Z88.8 Allergy status to other drugs, medicaments and biological substances; Z88.6 Allergy status to analgesic agent
CPT/HCPCS: 81003; 72100; 99283; 96372; J1885

== ENCOUNTER 2023-11-11 17:45 | Emergency (ER) | payer MEDICARE, OTHER ==
--- NOTE | 2023-11-11 18:12 | ED ---
Chest Pain HPI - General Chief Complaint: Chest Pain Stated Complaint: Chest pain,Neck Pain Time Seen by Provider: 11/11/23 18:11 Source: patient, RN notes reviewed Mode of arrival: ambulatory - History of Present Illness Initial Comments: Patient is a 43-year-old female presented ER with chief complaint of chest and neck pain. Patient states she's been going on for the past couple of days. She also was endorsing chills and low-grade fever. - Related Data Previous Rx's Medication Instructions Recorded Cephalexin [Keflex] 250 mg PO Q6HR #20 cap 05/13/23 Ketorolac [Toradol] 10 mg PO Q6HR PRN #15 tab 06/02/23 Ondansetron Odt [Zofran Odt] 4 mg PO Q8HR PRN #20 tab 06/02/23 Amoxic-Pot Clav 875-125Mg 1 tab PO BID 7 Days #14 tab 07/31/23 [Augmentin 875-125] Acetaminophen Tab [Tylenol] 650 mg PO Q6H #30 tab 09/06/23 Ketorolac [Toradol] 10 mg PO Q8HR #15 tab 09/06/23 methocarbamoL [Robaxin-750] 750 mg PO QID PRN #15 tab 09/06/23 Albuterol Sulfate [Albuterol 1 puff PO Q4-6H PRN #8.5 gm 11/13/23 Sulfate Hfa] Benzonatate [Tessalon Perle] 200 mg PO TID PRN #30 capsule 11/13/23 Ondansetron Odt [Zofran Odt] 4 mg PO Q8HR PRN #20 tab 11/13/23 Allergies Allergy/AdvReac Type Severity Reaction Status Date / Time Iodinated Contrast Media Allergy Rash/Hives Verified 11/13/23 11:26 [Iodinated Contrast Media - IV Dye] iodine Allergy Rash/Hives Verified 11/13/23 11:26 Iodine and Iodide Containing Allergy Rash/Hives Verified 11/13/23 11:26 Produc bupropion HCl AdvReac Unknown Homicidal Verified 11/13/23 11:26 [From Wellbutrin] Ideation aspirin AdvReac Nausea & Verified 11/13/23 11:26 Vomiting hydromorphone HCl AdvReac Diarrhea Verified 11/13/23 11:26 [From Dilaudid] propoxyphene napsylate AdvReac Nausea & Verified 11/13/23 11:26 [From Darvocet-N] Vomiting steroids Allergy Rash/Hives Uncoded 11/13/23 11:26 Review of Systems ROS Statement: Those systems with pertinent positive or pertinent negative responses have been documented in the HPI. ROS Other: All systems not noted in ROS Statement are negative. Past Medical History Past Medical History: Asthma, CVA/TIA, Hypertension, Seizure Disorder, Thyroid Disorder Additional Past Medical History / Comment(s): 11/2017 TIA or CVA (pt unsure) with resolved L sided weakness/aphasia but states still has short term memory loss, last seizure in 2016, frequent kidney infections, kidney stones she passed on her own, chronic cervical and low back pain, past fractured coccyx, gestational diabetes. ovarian cyst History of Any Multi-Drug Resistant Organisms: MRSA Date of last positivie culture/infection: 1999,2013, 2016 MDRO Source:: right leg Past Surgical History: Appendectomy, Section, Cholecystectomy, Tonsillectomy, Tubal Ligation Additional Past Surgical History / Comment(s): Multiple ear surgeries (x15 left ear & 13 right ear) ended up with eardrum replacements, x2 Past Anesthesia/Blood Transfusion Reactions: No Reported Reaction Additional Past Anesthesia/Blood Transfusion Reaction / Comment(s): PT STATES DIFFICULTY WAKING UP. PTS FATHER ALSO HAS DIFFICULTY WAKING UP. Past Psychological History: ADD/ADHD, Anxiety Smoking Status: Never smoker Past Alcohol Use History: None Reported Past Drug Use History: None Reported - Past Family History Mother Family Medical History: Cancer Additional Family Medical History / Comment(s): KIDNEY CANCER- in 2012 at the age of 68yrs. Father Family Medical History: CVA/TIA, Myocardial Infarction ([place]) Additional Family Medical History / Comment(s): Father had 8 CVAs and 2 MIs. His first [place] was at age 69yrs and 2nd [place] was at age 71yrs. He has a pacemaker. He is dyslexic. General Exam - General Exam Comments Initial Comments: Visual Physical Exam Vital signs reviewed General: Well-appearing, nontoxic, no acute distress. Head: Normocephalic, atraumatic Eyes: PERRLA, EOMI ENT: Airway patent Chest: Nonlabored breathing Skin: No visual rash, normal skin tone Neuro: Alert and oriented 3 Musculoskeletal: No gross abnormalities Course Vital Signs 11/11/23 18:00 Temperature 99.9 F H Pulse Rate 98 Respiratory 18 Rate Blood Pressure 174/105 O2 Sat by Pulse 99 Oximetry Chest Pain MDM - MDM I performed the quick note portion of the exam. Electronically signed by Raul Perez PA-C Patient eloped prior to completion of medical treatment. Disposition Clinical Impression: Left against medical advice Disposition: LEFT AGAINST MEDICAL ADVICE Condition: Undetermined Referrals: None,Stated [Primary Care Provider] - 1-2 days Time of Disposition: 11:54
[2023-11-11 18:27] VITALS: BP 174/105; PULSE 98; RESP 18; TEMP 99.9
--- NOTE | 2023-11-11 19:38 | XR ---
EXAMINATION TYPE: XR chest 2V DATE OF EXAM: 11/11/2023 6:49 PM CLINICAL INDICATION:Female, 43 years old with history of Chest Pain; [facility] COMPARISON: Chest radiographs from 02/22/2023. TECHNIQUE: XR chest 2V Frontal and lateral views of the chest. FINDINGS: Lungs/Pleura: There is no evidence of pleural effusion, focal consolidation, or pneumothorax. Pulmonary vascularity: Unremarkable. Heart/mediastinum: Cardiomediastinal silhouette is unremarkable. Musculoskeletal: No acute osseous pathology. Other findings: None IMPRESSION: No acute cardiopulmonary disease/process.
== END 2023-11-11 19:40 | disposition left against medical advice (07) ==
LOC: EC 17:45
DX: Z53.29 Procedure and treatment not carried out because of patient's decision for other reasons (principal); J45.909 Unspecified asthma, uncomplicated; I10 Essential (primary) hypertension; E07.9 Disorder of thyroid, unspecified; Z86.59 Personal history of other mental and behavioral disorders; Z88.5 Allergy status to narcotic agent; Z91.041 Radiographic dye allergy status; Z88.8 Allergy status to other drugs, medicaments and biological substances
CPT/HCPCS: 71046; 99284

== ENCOUNTER 2023-11-13 11:06 | Emergency (ER) | payer MEDICARE, OTHER ==
--- NOTE | 2023-11-13 11:51 | ED ---
URI HPI - General Chief Complaint: Upper Respiratory Infection Stated Complaint: ADAM,Headache Time Seen by Provider: 11/13/23 11:28 Source: patient, RN notes reviewed Mode of arrival: ambulatory Limitations: no limitations - History of Present Illness Initial Comments: This is a 43-year-old female who presents to the emergency department for coughing and congestion. States that the symptoms started 3 days ago. Reports associated headaches, fevers, and chills. Also reports loss of taste/smell. She is trying to drink lots of fluids, but feels like she cannot stay hydrated. She had some shortness of breath a couple of days ago, however that has since resolved. She does continue to have a lot of coughing. Describes the cough as nonproductive. MD Complaint: cough - Related Data Previous Rx's Medication Instructions Recorded Cephalexin [Keflex] 250 mg PO Q6HR #20 cap 05/13/23 Ketorolac [Toradol] 10 mg PO Q6HR PRN #15 tab 06/02/23 Ondansetron Odt [Zofran Odt] 4 mg PO Q8HR PRN #20 tab 06/02/23 Amoxic-Pot Clav 875-125Mg 1 tab PO BID 7 Days #14 tab 07/31/23 [Augmentin 875-125] Acetaminophen Tab [Tylenol] 650 mg PO Q6H #30 tab 09/06/23 Ketorolac [Toradol] 10 mg PO Q8HR #15 tab 09/06/23 methocarbamoL [Robaxin-750] 750 mg PO QID PRN #15 tab 09/06/23 Albuterol Sulfate [Albuterol 1 puff PO Q4-6H PRN #8.5 gm 11/13/23 Sulfate Hfa] Benzonatate [Tessalon Perle] 200 mg PO TID PRN #30 capsule 11/13/23 Ondansetron Odt [Zofran Odt] 4 mg PO Q8HR PRN #20 tab 11/13/23 Allergies Allergy/AdvReac Type Severity Reaction Status Date / Time Iodinated Contrast Media Allergy Rash/Hives Verified 11/13/23 11:26 [Iodinated Contrast Media - IV Dye] iodine Allergy Rash/Hives Verified 11/13/23 11:26 Iodine and Iodide Containing Allergy Rash/Hives Verified 11/13/23 11:26 Produc bupropion HCl AdvReac Unknown Homicidal Verified 11/13/23 11:26 [From Wellbutrin] Ideation aspirin AdvReac Nausea & Verified 11/13/23 11:26 Vomiting hydromorphone HCl AdvReac Diarrhea Verified 11/13/23 11:26 [From Dilaudid] propoxyphene napsylate AdvReac Nausea & Verified 11/13/23 11:26 [From Darvocet-N] Vomiting steroids Allergy Rash/Hives Uncoded 11/13/23 11:26 Review of Systems ROS Statement: Those systems with pertinent positive or pertinent negative responses have been documented in the HPI. ROS Other: All systems not noted in ROS Statement are negative. Past Medical History Past Medical History: Asthma, CVA/TIA, Hypertension, Seizure Disorder, Thyroid Disorder Additional Past Medical History / Comment(s): 11/2017 TIA or CVA (pt unsure) with resolved L sided weakness/aphasia but states still has short term memory loss, last seizure in 2016, frequent kidney infections, kidney stones she passed on her own, chronic cervical and low back pain, past fractured coccyx, gestational diabetes. ovarian cyst History of Any Multi-Drug Resistant Organisms: MRSA Date of last positivie culture/infection: 1999,2013, 2016 MDRO Source:: right leg Past Surgical History: Appendectomy, Section, Cholecystectomy, Tonsillectomy, Tubal Ligation Additional Past Surgical History / Comment(s): Multiple ear surgeries (x15 left ear & 13 right ear) ended up with eardrum replacements, x2 Past Anesthesia/Blood Transfusion Reactions: No Reported Reaction Additional Past Anesthesia/Blood Transfusion Reaction / Comment(s): PT STATES DIFFICULTY WAKING UP. PTS FATHER ALSO HAS DIFFICULTY WAKING UP. Past Psychological History: ADD/ADHD, Anxiety Smoking Status: Never smoker Past Alcohol Use History: None Reported Past Drug Use History: None Reported - Past Family History Mother Family Medical History: Cancer Additional Family Medical History / Comment(s): KIDNEY CANCER- in 2012 at the age of 68yrs. Father Family Medical History: CVA/TIA, Myocardial Infarction ([place]) Additional Family Medical History / Comment(s): Father had 8 CVAs and 2 MIs. His first [place] was at age 69yrs and 2nd [place] was at age 71yrs. He has a pacemaker. He is dyslexic. General Exam Limitations: no limitations General appearance: alert, in no apparent distress Head exam: Present: atraumatic, normocephalic, normal inspection Respiratory exam: Present: normal lung sounds bilaterally. Absent: respiratory distress, wheezes, rales, rhonchi, stridor Cardiovascular Exam: Present: regular rate, normal rhythm, normal heart sounds. Absent: systolic murmur, diastolic murmur, rubs, gallop, clicks Neurological exam: Present: alert, oriented X3, CN II-XII intact Psychiatric exam: Present: normal affect, normal mood Skin exam: Present: warm, dry, intact, normal color. Absent: rash Course Vital Signs 11/13/23 11/13/23 11/13/23 11:24 11:28 13:07 Temperature 100.5 F H 99.3 F Pulse Rate 103 H 86 Respiratory 20 20 18 Rate Blood Pressure 175/84 103/65 O2 Sat by Pulse 96 97 Oximetry Medical Decision Making - Medical Decision Making This is a 43-year-old female who presents to the emergency department for coug anusha and congestion. Was pt. sent in by a medical professional or institution? @ -No Did you speak to anyone other than the patient for history? @ -No Did you review nursing and triage notes? @ -Yes, and I agree, it is accurate with regards to the patient's symptoms. Were old charts reviewed? @ -No Differential Diagnosis? @ -Differential Cough: Influenza, Covid, RSV, croup, allergic rhinitis, GERD, pneumonia, bronchitis, COPD, viral pharyngitis, streptococcal pharyngitis, this is not meant to be an all-inclusive list. EKG interpreted by me (3pts min.)? @ -Not obtained X-rays interpreted by me (1pt min.)? @ -Chest x-ray obtained, my interpretation identifies no localized consolidations or infiltrates. CT interpreted by me (1pt min.)? @ -Not obtained U/S interpreted by me (1pt. min.)? @ -Not obtained What testing was considered but not performed? (CT, X-rays, U/S, labs)? Why? @ -None What meds were considered but not given? Why? @ -None Did you discuss the management of the patient with other professionals? @ -No Did you reconcile home meds? @ -No Was smoking cessation discussed for >3mins.? @ -No Was critical care preformed (if so, how long)? @ -No Were there social determinants of health that impacted care today? How? (Homelessness, low income, unemployed, alcoholism, drug addiction, transportation, low edu. Level, literacy, decrease access to med. care, care home, rehab)? @ -No Was there de-escalation of care discussed even if they declined? (Discuss DNR or withdrawal of care, Hospice)? @ -No What co-morbidities impacted this encounter? (DM, HTN, Smoking, COPD, CAD, Cancer, CVA, Hep., AIDS, mental health diagnosis, sleep apnea, morbid obesity)? @ -Asthma Was patient admitted / discharged? @ -Discharged. Patient positive for influenza A. COVID and RSV testing are negative. Chest x-ray reveals no acute process. Patient requested IV fluids, which were administered. She was also treated with Toradol and Tessalon Perles. Advised that the treatment regimen largely consists of symptomatic management. Prescription for Tessalon Perles, Zofran, and albuterol inhaler provided with dosing reviewed. Patient discharged home in stable condition. Undiagnosed new problem with uncertain prognosis? @ -None Drug Therapy requiring intensive monitoring for toxicity (Heparin, Nitro, Insulin, Cardizem)? @ -None Were any procedures done? @ -None Diagnosis/symptom? @ -Influenza A Acute, or Chronic, or Acute on Chronic? @ -Acute Uncomplicated (without systemic symptoms) or Complicated (systemic symptoms)? @ -Uncomplicated Side effects of treatment? @ -None Exacerbation, Progression, or Severe Exacerbation] @ -Not applicable Poses a threat to life or bodily function? @ -No Return precautions reviewed in depth, the patient is instructed to return to the emergency department with any new, worsening, or concerning symptoms. Patient verbalized understanding. This case was discussed in detail with the attending ED physician, Dr. Aquino. Presentation, findings, and treatment plan discussed in detail as well. - Lab Data Lab Results 11/13/23 Range/Units 11:32 Influenza Type A (PCR) Detected A (Not Detectd) Influenza Type B (PCR) Not Detected (Not Detectd) RSV (PCR) Not Detected (Not Detectd) SARS-CoV-2 (PCR) Not Detected (Not Detectd) - Radiology Data Radiology results: report reviewed, image reviewed Disposition Clinical Impression: Influenza A Disposition: HOME SELF-CARE Instructions (If sedation given, give patient instructions): Influenza (ED) Additional Instructions: Return to the emergency department with any new, worsening, or concerning symptoms. You can take the Tessalon Perles up to every 8 hours as needed for coughing. Take the Zofran up to every 8 hours for nausea and vomiting. You can use the albuterol inhaler every 4-6 hours for coughing and shortness of breath. Alternate with Ibuprofen and Tylenol as needed for fevers and headaches. Make sure you get plenty of rest and remain well hydrated. Follow up with your primary care provider in 1-2 days. Prescriptions: Albuterol Sulfate [Albuterol Sulfate Hfa] 1 puff PO Q4-6H PRN #8.5 gm PRN Reason: Shortness Of Breath Benzonatate [Tessalon Perle] 200 mg PO TID PRN #30 capsule PRN Reason: Cough Ondansetron Odt [Zofran Odt] 4 mg PO Q8HR PRN #20 tab PRN Reason: Nausea And Vomiting Is patient prescribed a controlled substance at d/c from ED?: No Referrals: None,Stated [Primary Care Provider] - 1-2 days Time of Disposition: 13:15
[2023-11-13] MEDS: SODIUM CHLORIDE 0.9% 1,000 ML IV STA (12:02)
[2023-11-13] MEDS: BENZONATATE 100 MG CAP PO STA (12:02)
[2023-11-13] MEDS: KETOROLAC 15 MG/ML 1 ML VIAL IVP STA (12:02)
--- NOTE | 2023-11-13 13:01 | XR ---
EXAMINATION TYPE: XR chest 2V DATE OF EXAM: 11/13/2023 12:28 PM CLINICAL INDICATION:Female, 43 years old with history of Cough; [facility] COMPARISON: Chest radiographs from 11/11/2023. TECHNIQUE: XR chest 2V Frontal and lateral views of the chest. FINDINGS: Lungs/Pleura: There is no evidence of pleural effusion, focal consolidation, or pneumothorax. Pulmonary vascularity: Unremarkable. Heart/mediastinum: Cardiomediastinal silhouette is unremarkable. Musculoskeletal: No acute osseous pathology. IMPRESSION: No acute cardiopulmonary disease/process.
[2023-11-13 13:31] VITALS: BP 103/65; PULSE 86; RESP 18; TEMP 99.3
== END 2023-11-13 13:36 | disposition home or self-care (01) ==
LOC: EC 11:06
DX: J10.1 Influenza due to other identified influenza virus with other respiratory manifestations (principal); J45.909 Unspecified asthma, uncomplicated; I10 Essential (primary) hypertension; Z86.59 Personal history of other mental and behavioral disorders; Z20.822 Contact with and (suspected) exposure to COVID-19; Z91.041 Radiographic dye allergy status; Z88.5 Allergy status to narcotic agent; Z88.6 Allergy status to analgesic agent; Z88.8 Allergy status to other drugs, medicaments and biological substances
CPT/HCPCS: 87636; 71046; 99285; 96374; 96361; J1885

== ENCOUNTER 2023-12-08 16:08 | Emergency (ER) | payer MEDICARE, OTHER ==
--- NOTE | 2023-12-08 16:38 | XR ---
EXAMINATION TYPE: XR hand complete RT DATE OF EXAM: 12/08/2023 4:31 PM CLINICAL INDICATION:Female, 43 years old with history of 4th and 5th digit injury; [facility] COMPARISON: None TECHNIQUE: XR hand complete RT Frontal, lateral and oblique views were obtained. FINDINGS: Normal alignment of the visualized joints. No acute osseous pathology is identified. No e vidence of soft tissue swelling. IMPRESSION: No acute osseous pathology.
[2023-12-08 16:57] VITALS: PULSE 67; RESP 18
--- NOTE | 2023-12-08 17:13 | ED ---
General Adult HPI - General Chief complaint: Extremity Injury, Upper Stated complaint: Hand Injury Time Seen by Provider: 12/08/23 16:37 Source: patient, RN notes reviewed Mode of arrival: ambulatory Limitations: no limitations - History of Present Illness Initial comments: 43-year-old female presents to the emergency department for evaluation of hand i njury. Patient states that she closed her fourth and fifth digits of her right hand into her car door. She got some abrasions to her fingers. She also notes swelling and difficulty bending the fourth and fifth digits. She is up-to-date on her tetanus vaccination. - Related Data Previous Rx's Medication Instructions Recorded Cephalexin [Keflex] 250 mg PO Q6HR #20 cap 05/13/23 Ketorolac [Toradol] 10 mg PO Q6HR PRN #15 tab 06/02/23 Ondansetron Odt [Zofran Odt] 4 mg PO Q8HR PRN #20 tab 06/02/23 Amoxic-Pot Clav 875-125Mg 1 tab PO BID 7 Days #14 tab 07/31/23 [Augmentin 875-125] Acetaminophen Tab [Tylenol] 650 mg PO Q6H #30 tab 09/06/23 Ketorolac [Toradol] 10 mg PO Q8HR #15 tab 09/06/23 methocarbamoL [Robaxin-750] 750 mg PO QID PRN #15 tab 09/06/23 Albuterol Sulfate [Albuterol 1 puff PO Q4-6H PRN #8.5 gm 11/13/23 Sulfate Hfa] Benzonatate [Tessalon Perle] 200 mg PO TID PRN #30 capsule 11/13/23 Ondansetron Odt [Zofran Odt] 4 mg PO Q8HR PRN #20 tab 11/13/23 Allergies Allergy/AdvReac Type Severity Reaction Status Date / Time Iodinated Contrast Media Allergy Rash/Hives Verified 12/08/23 16:18 [Iodinated Contrast Media - IV Dye] iodine Allergy Rash/Hives Verified 12/08/23 16:18 Iodine and Iodide Containing Allergy Rash/Hives Verified 12/08/23 16:18 Produc bupropion HCl AdvReac Unknown Homicidal Verified 12/08/23 16:18 [From Wellbutrin] Ideation aspirin AdvReac Nausea & Verified 12/08/23 16:18 Vomiting hydromorphone HCl AdvReac Diarrhea Verified 12/08/23 16:18 [From Dilaudid] propoxyphene napsylate AdvReac Nausea & Verified 12/08/23 16:18 [From Darvocet-N] Vomiting steroids Allergy Rash/Hives Uncoded 12/08/23 16:18 Review of Systems ROS Statement: Those systems with pertinent positive or pertinent negative responses have been documented in the HPI. ROS Other: All systems not noted in ROS Statement are negative. Past Medical History Past Medical History: Asthma, CVA/TIA, Hypertension, Seizure Disorder, Thyroid Disorder Additional Past Medical History / Comment(s): 11/2017 TIA or CVA (pt unsure) with resolved L sided weakness/aphasia but states still has short term memory loss, last seizure in 2016, frequent kidney infections, kidney stones she passed on her own, chronic cervical and low back pain, past fractured coccyx, gestational diabetes. ovarian cyst History of Any Multi-Drug Resistant Organisms: MRSA Date of last positivie culture/infection: 1999,2013, 2016 MDRO Source:: right leg Past Surgical History: Appendectomy, Section, Cholecystectomy, Tonsillectomy, Tubal Ligation Additional Past Surgical History / Comment(s): Multiple ear surgeries (x15 left ear & 13 right ear) ended up with eardrum replacements, x2 Past Anesthesia/Blood Transfusion Reactions: No Reported Reaction Additional Past Anesthesia/Blood Transfusion Reaction / Comment(s): PT STATES DIFFICULTY WAKING UP. PTS FATHER ALSO HAS DIFFICULTY WAKING UP. Past Psychological History: ADD/ADHD, Anxiety Smoking Status: Never smoker Past Alcohol Use History: None Reported Past Drug Use History: None Reported - Past Family History Mother Family Medical History: Cancer Additional Family Medical History / Comment(s): KIDNEY CANCER- in 2012 at the age of 68yrs. Father Family Medical History: CVA/TIA, Myocardial Infarction ([place]) Additional Family Medical History / Comment(s): Father had 8 CVAs and 2 MIs. His first [place] was at age 69yrs and 2nd [place] was at age 71yrs. He has a pacemaker. He is dyslexic. General Exam Limitations: no limitations General appearance: alert, in no apparent distress Head exam: Present: atraumatic, normocephalic, normal inspection Eye exam: Present: normal appearance, PERRL, EOMI. Absent: scleral icterus, conjunctival injection, periorbital swelling Respiratory exam: Present: normal lung sounds bilaterally. Absent: respiratory distress, wheezes, rales, rhonchi, stridor Cardiovascular Exam: Present: regular rate, normal rhythm, normal heart sounds. Absent: systolic murmur, diastolic murmur, rubs, gallop, clicks Extremities exam: Present: full ROM, tenderness, normal capillary refill, other (Radial pulses 2+, soft tissue swelling to the fourth and fifth digits of the right hand, superficial abrasions to fourth and fifth digits) Neurological exam: Present: alert, oriented X3 Course Vital Signs 12/08/23 12/08/23 16:16 18:18 Temperature 98.4 F 98.1 F Pulse Rate 67 67 Respiratory 18 18 Rate Blood Pressure 154/97 139/87 O2 Sat by Pulse 94 L 96 Oximetry Medical Decision Making - Medical Decision Making Was pt. sent in by a medical professional or institution (, PA, CELLULAR EQUIPMENT REPAIRER, urgent care, hospital, or [place] health care facility...) When possible be specific @ -No Did you speak to anyone other than the patient for history (EMS, parent, family, police, friend...)? What history was obtained from this source @ -No Did you review nursing and triage notes (agree or disagree)? Why? @ -I reviewed and agree with nursing and triage notes Were old charts reviewed (outside hosp., previous admission, EMS record, old EKG, old radiological studies, urgent care reports/EKG's, [place] health care facility records)? Report findings @ -No old charts were reviewed Differential Diagnosis (chest pain, altered mental status, abdominal pain women, abdominal pain men, vaginal bleeding, weakness, fever, dyspnea, syncope, headache, dizziness, GI bleed, back pain, seizure, CVA, palpatations, mental health, musculoskeletal)? @ -Differential Musculoskeletal Muscular strain, contusion, ligament sprain, fracture, arthritis, septic arthritis, bursitis, cellulitis, muscle spasm, nerve compression, DVT, arterial occlusion, herpes zoster, electrolyte abnormality, tumor.... This is not meant to be in all inclusive list EKG interpreted by me (3pts min.). @ -None X-rays interpreted by me (1pt min.). @ -X-ray of the right hand shows no evidence of acute fracture CT interpreted by me (1pt min.). @ -None done U/S interpreted by me (1pt. min.). @ -None done What testing was considered but not performed or refused? (CT, X-rays, U/S, labs)? Why? @ -None What meds were considered but not given or refused? Why? @ -None Did you discuss the management of the patient with other professionals (professionals i.e. , PA, CELLULAR EQUIPMENT REPAIRER, lab, RT, psych nurse, social sciences department chair, database dba, teacher, motorcycle police officer, returned case inspector)? Give summary @ -No Was smoking cessation discussed for >3mins.? @ -No Was critical care preformed (if so, how long)? @ -No Were there social determinants of health that impacted care today? How? (Homelessness, low income, unemployed, alcoholism, drug addiction, transportation, low edu. Level, literacy, decrease access to med. care, fci, rehab)? @ -No Was there de-escalation of care discussed even if they declined (Discuss DNR or withdrawal of care, Hospice)? DNR status @ -No What co-morbidities impacted this encounter? (DM, HTN, Smoking, COPD, CAD, Cancer, CVA, ARF, Chemo, Hep., AIDS, mental health diagnosis, sleep apnea, morbid obesity)? @ -None Was patient admitted / discharged? Hospital course, mention meds given and route, prescriptions, significant lab abnormalities, going to OR and other pertinent info. @ -Discharge. Patient presented to the emergency department for evaluation of right hand fourth and fifth digit injury. Patient has superficial abrasions to the fourth and fifth digits. She is up-to-date on her tetanus vaccination. X- rays obtained which show no evidence of acute fracture. Patient given a dose of Toradol in the emergency department. Topical bacitracin was applied to the wounds. Patient advised to keep wounds clean and dry. Also advised to utilize Tylenol Motrin for discomfort of the fingers along with icing and elevating the hand. Patient understanding agreeable with plan. Patient stable at time of discharge. Case discussed with Dr. Vasques Undiagnosed new problem with uncertain prognosis? @ -No Drug Therapy requiring intensive monitoring for toxicity (Heparin, Nitro, Insulin, Cardizem)? @ -No Were any procedures done? @ -No Diagnosis/symptom? @ -Finger contusion t Acute, or Chronic, or Acute on Chronic? @ -Acute Uncomplicated (without systemic symptoms) or Complicated (systemic symptoms)? @ -Uncomplicated Side effects of treatment? @ -No Exacerbation, Progression, or Severe Exacerbation? @ -No Poses a threat to life or bodily function? How? (Chest pain, [place], [place], pneumonia, PE, COPD, DKA, ARF, appy, cholecystitis, CVA, Diverticulitis, Homicidal, Suicidal, threat to staff... and all critical care pts) @ -No Disposition Clinical Impression: Finger contusion Disposition: HOME SELF-CARE Condition: Stable Instructions (If sedation given, give patient instructions): Finger Sprain (ED) Additional Instructions: Please ice the fingers. Utilize Tylenol and Motrin for pain. Follow up with your primary care provider. Return to the emergency department for new or worsening symptoms. Is patient prescribed a controlled substance at d/c from ED?: No Referrals: None,Stated [Primary Care Provider] - 1-2 days
[2023-12-08] MEDS: BACITRACIN OINT 1 EACH PACKET TOPICAL ONE (18:06)
[2023-12-08] MEDS: ACETAMINOPHEN TAB 325 MG TAB PO STA (18:07)
[2023-12-08] MEDS: KETOROLAC 15 MG/ML 1 ML VIAL IM STA (18:10)
[2023-12-08 18:32] VITALS: BP 139/87; TEMP 98.1
== END 2023-12-08 18:25 | disposition home or self-care (01) ==
LOC: EC 16:08
DX: S60.041A Contusion of right ring finger without damage to nail, initial encounter (principal); S60.051A Contusion of right little finger without damage to nail, initial encounter; Z88.5 Allergy status to narcotic agent; Z88.6 Allergy status to analgesic agent; Z88.8 Allergy status to other drugs, medicaments and biological substances; Z91.041 Radiographic dye allergy status; W23.0XXA Caught, crushed, jammed, or pinched between moving objects, initial encounter; Y92.810 Car as the place of occurrence of the external cause
CPT/HCPCS: 99283

== ENCOUNTER → 2024-04-02 | Outpatient (CLI) | payer MEDICARE, OTHER ==
[2024-04-02 13:23] VITALS: BP 166/86; PULSE 71; RESP 16; TEMP 96.9
--- NOTE | 2024-04-02 15:07 | P.PAINPG ---
Objective - Vital Signs Vital signs: Vital Signs Temp 96.9 F L 04/02/24 13:17 Pulse 71 04/02/24 13:17 Resp 16 04/02/24 13:17 BP 166/86 04/02/24 13:17 Pulse Ox 96 04/02/24 13:17 FiO2 Intake & Output 04/01/24 04/02/24 04/02/24 18:59 06:59 18:59 Weight 127.006 kg PQRS Measure Charge Sheet Mode of Arrival: Ambulatory Comment: HISTORY OF PRESENT ILLNESS: A 43 yr old female as a referral from Kassi Wilkins [facility] presents today w severe and chronic LBP> 3 mo secondary to DDD, spondylosis and facet arthropathy without myelopathy for evaluation. Pt states pain level is provoked at 10 /10 in intensity, constant, localized in the lumbar spine, predominantly axial, stabbing in character w occasional shooting pain towards the RLE and foot. Pain is provoked by walking for periods > 15 min. Pain is alleviated by heat, topical BioFreeze, repositioning and rest . Oswestry axial pain score at 42. PMH: OA, Asthma, CVA (2018), HTN, Seizure Disorder (2017), Hypothyroidism, ADD/ ADHD/ Anxiety PSH: Appendectomy, x2, Cholecystectomy, Tonsillectomy, Tubal Ligation, Multiple Ear Surgeries (L x15, R x 13) SH: . Negative x3 FH: Mo- Renal CA, at age 69. Fa- CVA, DC, Pacemaker, Dyslexia. All: See list Meds: See list REVIEW OF ORGAN SYSTEMS: CONSTITUTIONAL: No fevers or chills. No recent weight loss. NEUROLOGICAL: + numbness and tingling along the distal extremities. No seizure disorders or headaches. MUSCULOSKELETAL: + pain PSYCHIATRIC: Denies current depression or suicidal thoughts. Physical Examinations : Constitutional : Cooperative , not in acute distress . Neurologic : Cranial nerve II to XII intact. No focal neurological deficits. Psychiatric : alert & oriented x 3. Matching mood & appropriate affect. Judgment & insight intact. Musculoskeletal : Cervical Spine Motor strength in the deltoid and biceps: Normal right side. Normal Left side Motor strength biceps and the wrist extensors: Normal right side . Normal left side Motor strength in the triceps muscle: Normal right side. Normal left side Deep tendon reflexes: Normal at the biceps. Normal at Brachioradialis. Normal at triceps Vertebral body tenderness to deep palpation over Cervical facet loading test: positive bilaterally Spurling test: positive bilaterally Neck distraction test: positive bilaterally Jayy sign: positive bilaterally Lumbar spine Motor strength lower extremities ,thigh and legs 5/5 Right side , 5/5 Left side Deep tendon reflexes : Normal Knee Jerk. Normal Ankle Jerk Vertebral body tenderness over Sainz Test positive L4 Lumbar facet Loading Test: positive Right / positive Left Range of motion of the lumbar spine Flexion 30 degrees, extension 10 degrees Straight Leg Raise test: Left/ Right positive at degrees Jennifer test: positive right / positive left. Severe tenderness over the Sacroiliac joint on the Right / Left sides Gaenslen test: positive bilaterally Seated flexion test: positive bilaterally. Sacral spine : Severe tenderness over the Sacroiliac joint: right side / left side Range of motion: Flexion of the lumbar spine <60 degrees Range of motion: Extension of the lumbar spine <20 degrees Gaenslen's Test positive Jennifer test: positive right side / left side Thigh Thrust Test Sacral Thrust Test Imaging: Lumbar x ray from 09/06/23 reviewed Assessment/ Plan : Lumbar DDD Recommendation of CT non contrast of the lumbar spine and PT x 6 wks M51.36. All questions answered. I have spent greater than 30 minutes on patient care today. Dr Linton was available by phone for the evaluation of this patient. The time was used to review the medical records including relevant urine studies and Prescription history (MAPs), review of the available imaging, evaluation and examination of the patient, coordination of care with the medical staff and if applicable referring physicians, as well as creation of the medical record - Pain Location Bilateral Lower Back Non-Pharmacological Interventions: Heat, Inactivity, Position/Reposition Pharmacological Interventions: Topical Medication PQRS Narrative: Smoking Status Never smoker Blood Pressure 166/86 Pain Intensity [Bilateral 10 Lower Back] Scale Used Numeric (1 - 10) Hx Alcohol Use (MH) No Home Medications: Ambulatory Orders No Known Home Medications 04/02/24 Controlled Substance Measures - Controlled Substance Measures Is patient prescribed a controlled substance at discharge?: No
== END ==
LOC: PNWHC3 12:56
PROVIDERS: ATTEND Specialist
DX: M51.17 Intervertebral disc disorders with radiculopathy, lumbosacral region (principal); M47.27 Other spondylosis with radiculopathy, lumbosacral region; Z91.041 Radiographic dye allergy status; Z88.8 Allergy status to other drugs, medicaments and biological substances; Z88.5 Allergy status to narcotic agent; Z88.6 Allergy status to analgesic agent
CPT/HCPCS: 99211

== ENCOUNTER → 2024-07-09 | Outpatient (CLI) | payer MEDICARE, OTHER ==
--- NOTE | 2024-07-09 09:59 | CT ---
EXAMINATION TYPE: CT lumbar spine wo con CT DLP: 1818.50 mGycm, Automated exposure control for dose reduction was used. DATE OF EXAM: 07/09/2024 9:47 AM COMPARISON: 03/03/1823. CLINICAL INDICATION: Female, 43 years old with history of M51.36 OTHER INTVRT DISC DEGEN, LUM RGN WIT H DISCO; PHH, Lumbar back pain TECHNIQUE: Multiple axial images were obtained from the midportion of T11 through the sacroiliac justin nts. Soft tissue and bone windows in coronal and sagittal planes were obtained and reviewed. Contrast used: mL of , (None, if empty). Oral contrast used: (None, if empty). FINDINGS: Alignment: There are 5 lumbar type vertebral bodies within normal alignment. Bone: No evidence of fracture is identified. Mild degeneration changes with osteophyte formation and facet joint arthropathy. Discs: T12-L1: No spinal canal or neural foraminal stenosis is identified. L1-L2: No spinal canal or neural foraminal stenosis is identified. L2-L3: No spinal canal or neural foraminal stenosis is identified. L3-L4: Facet joint arthropathy and disc bulging without significant spinal canal stenosis or neural f oraminal stenosis. L4-L5: Facet joint arthropathy and disc bulging without significant spinal canal stenosis or neural f oraminal stenosis. L5-S1: No spinal canal or neural foraminal stenosis is identified. Other: Scattered colonic diverticula. IMPRESSION: 1. No evidence for spinal fracture. 2. Mild degeneration changes of the spine. [facility], , 07/09/2024 9:56 AM
== END | disposition home or self-care (01) ==
LOC: RADCTMAIN 09:10
PROVIDERS: ATTEND Specialist
DX: M51.360 Other intervertebral disc degeneration, lumbar region with discogenic back pain only
CPT/HCPCS: 72131

== ENCOUNTER 2024-07-21 15:25 | Emergency (ER) | payer MEDICARE, OTHER ==
[2024-07-21 15:43] VITALS: TEMP 98.7
--- NOTE | 2024-07-21 16:05 | ED ---
Nausea/Vomiting/Diarrhea HPI - General Chief complaint: Nausea/Vomiting/Diarrhea Stated complaint: diarrhea Time Seen by Provider: 07/21/24 15:39 Source: patient Mode of arrival: ambulatory Limitations: no limitations - History of Present Illness Initial comments: This is a 43-year-old female complaining of diarrhea since 8 AM this morning. Patient states pain is diffuse mentioning some localization in the left lower quadrant (5 out of 10). Patient endorses eating at [employer] last night, eating pulled pork. Patient states she has been unable to eat since that time pain. Denies hematochezia, bright red blood per rectum, nausea or vomiting. Patient also mentions intermittent chest heaviness since this morning as well (4 out of 10. Patient denies radiating pain, sweating, pallor, dizziness, radiating pain. Patient denies significant cardiac history. Patient denies fevers, chills, dizziness, dyspnea, altered mental status, altered LOC. MD complaint: diarrhea, abdominal pain, other (Chest heaviness) Onset/Timin -: hour(s) Time: 08:00 Description of Diarrhea: water Associated Abdominal Pain: Yes Location: diffuse, LLQ Radiation: none Severity scale (1-10): 4 Consistency: intermittent Associated Symptoms: chest pain, loss of appetite - Related Data Home Medications Medication Instructions Recorded Confirmed Gabapentin [Neurontin] 300 mg PO TID 07/21/24 07/21/24 HYDROcodone/APAP 7.5-325MG [Flaxton 1 tab PO TID 07/21/24 07/21/24 7.5-325] Ibuprofen [Motrin] 800 mg PO BID PRN 07/21/24 07/21/24 tiZANidine [Zanaflex] 4 mg PO BID 07/21/24 07/21/24 Allergies Allergy/AdvReac Type Severity Reaction Status Date / Time Iodinated Contrast Media Allergy Rash/Hives Verified 07/21/24 15:43 [Iodinated Contrast Media - IV Dye] iodine Allergy Rash/Hives Verified 07/21/24 15:43 Iodine and Iodide Containing Allergy Rash/Hives Verified 07/21/24 15:43 Produc ketorolac [From Toradol] Allergy Rash/Hives Verified 07/21/24 15:43 bupropion HCl AdvReac Unknown Homicidal Verified 07/21/24 15:43 [From Wellbutrin] Ideation aspirin AdvReac Nausea & Verified 07/21/24 15:43 Vomiting hydromorphone HCl AdvReac Diarrhea Verified 07/21/24 15:43 [From Dilaudid] propoxyphene napsylate AdvReac Nausea & Verified 07/21/24 15:43 [From Darvocet-N] Vomiting steroids Allergy Rash/Hives Uncoded 07/21/24 15:43 Review of Systems ROS Statement: Those systems with pertinent positive or pertinent negative responses have been documented in the HPI. ROS Other: All systems not noted in ROS Statement are negative. Past Medical History Past Medical History: Asthma, CVA/TIA, Hypertension, Seizure Disorder, Thyroid Disorder Additional Past Medical History / Comment(s): 11/2017 TIA or CVA (pt unsure) with resolved L sided weakness/aphasia but states still has short term memory loss, last seizure in 2016, frequent kidney infections, kidney stones she passed on her own, chronic cervical and low back pain, past fractured coccyx, gestational diabetes. ovarian cyst History of Any Multi-Drug Resistant Organisms: MRSA Date of last positivie culture/infection: 1999,2013, 2016 MDRO Source:: right leg Past Surgical History: Appendectomy, Section, Cholecystectomy, Tonsillectomy, Tubal Ligation Additional Past Surgical History / Comment(s): Multiple ear surgeries (x15 left ear & 13 right ear) ended up with eardrum replacements, x2 Past Anesthesia/Blood Transfusion Reactions: No Reported Reaction Additional Past Anesthesia/Blood Transfusion Reaction / Comment(s): PT STATES DIFFICULTY WAKING UP. PTS FATHER ALSO HAS DIFFICULTY WAKING UP. Past Psychological History: ADD/ADHD, Anxiety Smoking Status: Never smoker - Past Family History Mother Family Medical History: Cancer Additional Family Medical History / Comment(s): KIDNEY CANCER- in 2012 at the age of 68yrs. Father Family Medical History: CVA/TIA, Myocardial Infarction (MA) Additional Family Medical History / Comment(s): Father had 8 CVAs and 2 MIs. Hi s first MA was at age 69yrs and 2nd MA was at age 71yrs. He has a pacemaker. He is dyslexic. General Exam Limitations: no limitations General appearance: alert, in no apparent distress Head exam: Present: atraumatic, normocephalic, normal inspection Eye exam: Present: normal appearance, PERRL, EOMI. Absent: scleral icterus, conjunctival injection, periorbital swelling ENT exam: Present: normal exam, mucous membranes moist Neck exam: Present: normal inspection. Absent: tenderness, meningismus, lymphadenopathy Respiratory exam: Present: normal lung sounds bilaterally. Absent: respiratory distress, wheezes, rales, rhonchi, stridor Cardiovascular Exam: Present: regular rate, normal rhythm, normal heart sounds. Absent: systolic murmur, diastolic murmur, rubs, gallop, clicks GI/Abdominal exam: Present: soft, tenderness (Positive diffuse abdominal t enderness without guarding. Positive tympanic tenderness.), diminished bowel sounds. Absent: distended, guarding, rebound, rigid Extremities exam: Present: normal inspection, full ROM, normal capillary refill. Absent: tenderness, pedal edema, joint swelling, calf tenderness Back exam: Present: normal inspection Neurological exam: Present: alert, oriented X3, CN II-XII intact Psychiatric exam: Present: normal affect, normal mood Skin exam: Present: warm, dry, intact, normal color. Absent: rash Course Vital Signs 07/21/24 07/21/24 15:40 15:43 Temperature 98.7 F Pulse Rate 70 72 Respiratory 12 20 Rate Blood Pressure 154/85 112/63 O2 Sat by Pulse 95 97 Oximetry Medical Decision Making - Medical Decision Making Was pt. sent in by a medical professional or institution ([facility]ARYN Leal, POACHER WRINGER OPERATOR, urgent care, hospital, or correction...) When possible be specific @ -No Did you speak to anyone other than the patient for history (EMS, parent, family, police, friend...)? What history was obtained from this source @ -No Did you review nursing and triage notes (agree or disagree)? Why? @ -I reviewed and agree with nursing and triage notes Were old charts reviewed (outside hosp., previous admission, EMS record, old EKG, old radiological studies, urgent care reports/EKG's, correction records)? Report findings @ -No old charts were reviewed Differential Diagnosis (chest pain, altered mental status, abdominal pain women, abdominal pain men, vaginal bleeding, weakness, fever, dyspnea, syncope, headache, dizziness, GI bleed, back pain, seizure, CVA, palpatations, mental health, musculoskeletal)? @ -Differential Abdominal Pain Women: Appendicitis, Cholecystitis, diverticulosis, ischemic bowel, pancreatitis, hepatitis, UTI, gastroenteritis, AAA, incarcerated hernia, bowel obstruction, constipation, inflammatory bowel, hepatitis, peptic ulcer disease, splenic infarction, perforated viscus, vulvitis, ovarian torsion, PID, kidney stone, placenta abruption, this is not meant to be an all-inclusive list Differential Chest Pain: Stable Angina, Unstable Angina, STEMI, NSTEMI Aortic Dissection, Pneumothorax, Musculoskeletal, Esophageal Spasm GERD, Cholecystitis, Pancreatitis, Zoster, this is not meant to be an all-inclusive list. EKG interpreted by me (3pts min.). @ -Sinus rhythm without ST changes or T wave inversion. Ventricular rate 70 bpm, DEAN 154 ms, QRS duration 100 ms, QTc 404 ms. X-rays interpreted by me (1pt min.). @ -Chest x-ray is unremarkable without focal infiltrates, pulmonary edema, blunting of costophrenic angle or pneumothorax. KUB revealed some gaseous distention indicating likely enteritis. CT interpreted by me (1pt min.). @ -None done U/S interpreted by me (1pt. min.). @ -None done What testing was considered but not performed or refused? (CT, X-rays, U/S, labs)? Why? @ -None What meds were considered but not given or refused? Why? @ -None Did you discuss the management of the patient with other professionals (professionals i.e. , PA, POACHER WRINGER OPERATOR, lab, RT, psych nurse, social work professor, nail technician, teacher, tank officer, case resource manager)? Give summary @ -No Was smoking cessation discussed for >3mins.? @ -No Was critical care preformed (if so, how long)? @ -No Were there social determinants of health that impacted care today? How? (Homelessness, low income, unemployed, alcoholism, drug addiction, transportation, low edu. Level, literacy, decrease access to med. care, prison, rehab)? @ -No Was there de-escalation of care discussed even if they declined (Discuss DNR or withdrawal of care, Hospice)? DNR status @ -No What co-morbidities impacted this encounter? (DM, HTN, Smoking, COPD, CAD, Cancer, CVA, ARF, Chemo, Hep., AIDS, mental health diagnosis, sleep apnea, morbid obesity)? @ -None Was patient admitted / discharged? Hospital course, mention meds given and route, prescriptions, significant lab abnormalities, going to OR and other pertinent info. @ -Discharge. Twelve-lead and troponin levels were normal. Electrolytes and other lab work were also largely unremarkable. Patient given loperamide with some decrease in number of bowel movements noted by patient. Advised patient that symptoms are self-limited and will resolve without further treatment in next 24 to 48 hours. Advised increase fluid intake and ODALIS diet. Undiagnosed new problem with uncertain prognosis? @ -No Drug Therapy requiring intensive monitoring for toxicity (Heparin, Nitro, Insulin, Cardizem)? @ -No Were any procedures done? @ -No Diagnosis/symptom? @ -Acute gastroenteritis Acute, or Chronic, or Acute on Chronic? @ -Acute Uncomplicated (without systemic symptoms) or Complicated (systemic symptoms)? @ -Uncomplicated Side effects of treatment? @ -No Exacerbation, Progression, or Severe Exacerbation? @ -No Poses a threat to life or bodily function? How? (Chest pain, USA, MA, pneumonia, PE, COPD, DKA, ARF, appy, cholecystitis, CVA, Diverticulitis, Homicidal, Suicidal, threat to staff... and all critical care pts) @ -No - Lab Data Result diagrams: 07/21/24 15:54 07/21/24 15:54 Lab Results 07/21/24 07/21/24 07/21/24 Range/Units 15:54 15:54 15:55 WBC 14.1 H (3.8-10.6) k/uL RBC 4.78 (3.80-5.40) m/uL Hgb 13.2 (11.4-16.0) gm/dL Hct 40.6 (34.0-46.0) % MCV 84.9 (80.0-100.0) fL MCH 27.5 (25.0-35.0) pg MCHC 32.4 (31.0-37.0) g/dL RDW 13.4 (11.5-15.5) % Plt Count 324 (150-450) k/uL MPV 8.0 Neutrophils % 83 % Lymphocytes % 11 % Monocytes % 4 % Eosinophils % 2 % Basophils % 0 % Neutrophils # 11.7 H (1.3-7.7) k/uL Lymphocytes # 1.5 (1.0-4.8) k/uL Monocytes # 0.5 (0-1.0) k/uL Eosinophils # 0.3 (0-0.7) k/uL Basophils # 0.0 (0-0.2) k/uL Sodium 137 (137-145) mmol/L Potassium 4.5 (3.5-5.1) mmol/L Chloride 101 (98-107) mmol/L Carbon Dioxide 28 (22-30) mmol/L Anion Gap 8 mmol/L BUN 12 (7-17) mg/dL Creatinine 0.63 (0.52-1.04) mg/dL Est GFR (CKD-EPI)AfAm >90 (>60 ml/min/1.73 sqM) Est GFR (CKD-EPI)NonAf >90 (>60 ml/min/1.73 sqM) Glucose 106 H (74-99) mg/dL Plasma Lactic Acid Saleem 1.1 (0.7-2.0) mmol/L Calcium 9.1 (8.4-10.2) mg/dL Total Bilirubin 0.5 (0.2-1.3) mg/dL AST 22 (14-36) U/L ALT 22 (4-34) U/L Alkaline Phosphatase 79 (38-126) U/L Troponin I (0.000-0.034) ng/mL Total Protein 7.7 (6.3-8.2) g/dL Albumin 4.3 (3.5-5.0) g/dL Amylase 41 (30-110) U/L Lipase 70 (23-300) U/L 07/21/ Range/Units 15:55 WBC (3.8-10.6) k/uL RBC (3.80-5.40) m/uL Hgb (11.4-16.0) gm/dL Hct (34.0-46.0) % MCV (80.0-100.0) fL MCH (25.0-35.0) pg MCHC (31.0-37.0) g/dL RDW (11.5-15.5) % Plt Count (150-450) k/uL MPV Neutrophils % % Lymphocytes % % Monocytes % % Eosinophils % % Basophils % % Neutrophils # (1.3-7.7) k/uL Lymphocytes # (1.0-4.8) k/uL Monocytes # (0-1.0) k/uL Eosinophils # (0-0.7) k/uL Basophils # (0-0.2) k/uL Sodium (137-145) mmol/L Potassium (3.5-5.1) mmol/L Chloride (98-107) mmol/L Carbon Dioxide (22-30) mmol/L Anion Gap mmol/L BUN (7-17) mg/dL Creatinine (0.52-1.04) mg/dL Est GFR (CKD-EPI)AfAm (>60 ml/min/1.73 sqM) Est GFR (CKD-EPI)NonAf (>60 ml/min/1.73 sqM) Glucose (74-99) mg/dL Plasma Lactic Acid Saleem (0.7-2.0) mmol/L Calcium (8.4-10.2) mg/dL Total Bilirubin (0.2-1.3) mg/dL AST (14-36) U/L ALT (4-34) U/L Alkaline Phosphatase (38-126) U/L Troponin I <0.012 (0.000-0.034) ng/mL Total Protein (6.3-8.2) g/dL Albumin (3.5-5.0) g/dL Amylase (30-110) U/L Lipase (23-300) U/L Disposition Clinical Impression: Gastroenteritis Disposition: HOME SELF-CARE Condition: Good Instructions (If sedation given, give patient instructions): Acute Diarrhea (ED) Additional Instructions: Increase fluid intake with water, Gatorade and Pedialyte. Advised brat diet. Advised symptoms are self-limited and will resolve within 24 to 48 hours. Is patient prescribed a controlled substance at d/c from ED?: No Referrals: Henry Lowe MD [Primary Care Provider] - 1-2 days Time of Disposition: 17:04
[2024-07-21 16:23] VITALS: RESP 20
[2024-07-21] MEDS: LOPERAMIDE 2 MG CAP PO STA (16:25)
[2024-07-21 16:33] LABS: Basophils % (A) 0 %; Eosinophils # (A) 0.3 k/uL (0-0.7); Eosinophils % (A) 2 %; HCT 40.6 % (34.0-46.0); HGB 13.2 gm/dL (11.4-16.0); Lymphocytes # (A) 1.5 k/uL (1.0-4.8); Lymphocytes % (A) 11 %; MCH 27.5 pg (25.0-35.0); MCHC 32.4 g/dL (31.0-37.0); MCV 84.9 fL (80.0-100.0); Monocytes # (A) 0.5 k/uL (0-1.0); Monocytes % (A) 4 %; Neutrophils # (A) 11.7 k/uL (1.3-7.7); Neutrophils % (A) 83 %; Platelet Count 324 k/uL (150-450); RBC 4.78 m/uL (3.80-5.40); RDW 13.4 % (11.5-15.5); WBC 14.1 k/uL (3.8-10.6)
--- NOTE | 2024-07-21 16:42 | XR ---
EXAMINATION TYPE: XR chest 2V DATE OF EXAM: 07/21/2024 COMPARISON: 11/13/2023 HISTORY: 43-year-old female with chest heaviness TECHNIQUE: PA and lateral views FINDINGS: The cardiomediastinal silhouette, aorta, and pulmonary vasculature are within normal limits. Lungs an d pleural spaces are clear. IMPRESSION: No acute cardiopulmonary process. [facility], , 07/21/2024 4:40 PM
[2024-07-21 16:43] LABS: ALT 22 U/L (4-34); AST 22 U/L (14-36); African American GFR (CKD) >90 (>60 ml/min/1.73 sqM); Albumin 4.3 g/dL (3.5-5.0); Alkaline Phosphatase 79 U/L (38-126); Amylase 41 U/L (30-110); Anion Gap 8 mmol/L; Blood Urea Nitrogen 12 mg/dL (7-17); Calcium 9.1 mg/dL (8.4-10.2); Carbon Dioxide 28 mmol/L (22-30); Chloride 101 mmol/L (98-107); Glucose 106 mg/dL (74-99); Lipase 70 U/L (23-300); Non-African American GFR(CKD) >90 (>60 ml/min/1.73 sqM); Potassium 4.5 mmol/L (3.5-5.1); Sodium 137 mmol/L (137-145); Total Bilirubin 0.5 mg/dL (0.2-1.3); Total Protein 7.7 g/dL (6.3-8.2)
--- NOTE | 2024-07-21 16:44 | XR ---
EXAMINATION TYPE: XR KUB DATE OF EXAM: 07/21/2024 Comparison: 09/03/2021 Clinical History: 43-year-old female Abdominal pain Findings: Cholecystectomy clips. No evidence for free intraperitoneal air. A nonspecific poorly distended small bowel loop right mid abdomen measuring up to 2.9 cm. A few small air-fluid levels are present in the small bowel. A few small air-fluid levels also present in the co ian. No significant stool burden. Overall nonobstructive bowel gas pattern at this time. Impression: Scattered small air-fluid levels in both small bowel and colon. A single loop is borderline distended up to 2.9 cm. Overall findings favor a generalized ileus or enteritis. No free air. No significant s tool burden. [facility], , 07/21/2024 4:42 PM
[2024-07-21 17:10] VITALS: BP 130/86; PULSE 82
== END 2024-07-21 17:10 | disposition home or self-care (01) ==
LOC: EC 15:25
CPT/HCPCS: 36415; 71046; 74018; 80053; 82150; 83605; 83690; 84484; 85025; 93005; 99284

== ENCOUNTER 2024-09-08 15:33 | Emergency (ER) | payer MEDICARE, OTHER ==
--- NOTE | 2024-09-08 16:19 | ED ---
Abdominal Pain HPI - General Chief Complaint: Abdominal Pain Stated Complaint: Abdominal Pain Time Seen by Provider: 09/08/24 15:49 Source: patient, RN notes reviewed Mode of arrival: ambulatory Limitations: no limitations - History of Present Illness Initial Comments: This is a 43-year-old female presenting with lower abdominal pain (05/05) x 3 days. Patient states pain is constant and radiates to left flank. Endorses history of left ovarian cyst and frequent UTIs. States pain is similar to prior episodes of ovarian and UTI pain. Endorses current urinary frequency/urgency. Denies fever, chills, chest pain, dyspnea, N/V/D, constipation, hematochezia, melena, dysuria. MD Complaint: abdominal pain, flank pain Onset/Timin -: days(s) Location: LLQ Radiation: L flank Severity scale (1-10): 8 Quality: stabbing Consistency: constant Improves With: nothing Worsens With: nothing - Related Data Home Medications Medication Instructions Recorded Confirmed Gabapentin [Neurontin] 300 mg PO TID 07/21/24 07/21/24 HYDROcodone/APAP 7.5-325MG [[place] 1 tab PO TID 07/21/24 07/21/24 7.5-325] Ibuprofen [Motrin] 800 mg PO BID PRN 07/21/24 07/21/24 tiZANidine [Zanaflex] 4 mg PO BID 07/21/24 07/21/24 Previous Rx's Medication Instructions Recorded Levofloxacin [Levaquin] 750 mg PO DAILY 10 Days #10 tab 09/08/24 Allergies Allergy/AdvReac Type Severity Reaction Status Date / Time Iodinated Contrast Media Allergy Rash/Hives Verified 09/08/24 15:41 [Iodinated Contrast Media - IV Dye] iodine Allergy Rash/Hives Verified 09/08/24 15:41 Iodine and Iodide Containing Allergy Rash/Hives Verified 09/08/24 15:41 Produc ketorolac [From Toradol] Allergy Rash/Hives Verified 09/08/24 15:41 bupropion HCl AdvReac Unknown Homicidal Verified 09/08/24 15:41 [From Wellbutrin] Ideation aspirin AdvReac Nausea & Verified 09/08/24 15:41 Vomiting hydromorphone HCl AdvReac Diarrhea Verified 09/08/24 15:41 [From Dilaudid] propoxyphene napsylate AdvReac Nausea & Verified 09/08/24 15:41 [From Darvocet-N] Vomiting steroids Allergy Rash/Hives Uncoded 09/08/24 15:41 Review of Systems ROS Statement: Those systems with pertinent positive or pertinent negative responses have been documented in the HPI. ROS Other: All systems not noted in ROS Statement are negative. Past Medical History Past Medical History: Asthma, CVA/TIA, Hypertension, Seizure Disorder, Thyroid Disorder Additional Past Medical History / Comment(s): 11/2017 TIA or CVA (pt unsure) with resolved L sided weakness/aphasia but states still has short term memory loss, last seizure in 2016, frequent kidney infections, kidney stones she passed on her own, chronic cervical and low back pain, past fractured coccyx, gestational diabetes. ovarian cyst History of Any Multi-Drug Resistant Organisms: MRSA Date of last positivie culture/infection: 1999,2013, 2016 MDRO Source:: right leg Past Surgical History: Appendectomy, Section, Cholecystectomy, Tonsillectomy, Tubal Ligation Additional Past Surgical History / Comment(s): Multiple ear surgeries (x15 left ear & 13 right ear) ended up with eardrum replacements, x2 Past Anesthesia/Blood Transfusion Reactions: No Reported Reaction Additional Past Anesthesia/Blood Transfusion Reaction / Comment(s): PT STATES DIFFICULTY WAKING UP. PTS FATHER ALSO HAS DIFFICULTY WAKING UP. Past Psychological History: ADD/ADHD, Anxiety Smoking Status: Never smoker Past Alcohol Use History: None Reported Past Drug Use History: None Reported - Past Family History Mother Family Medical History: Cancer Additional Family Medical History / Comment(s): KIDNEY CANCER- in 2012 at the age of 68yrs. Father Family Medical History: CVA/TIA, Myocardial Infarction (NC) Additional Family Medical History / Comment(s): Father had 8 CVAs and 2 MIs. His first NC was at age 69yrs and 2nd NC was at age 71yrs. He has a pacemaker. He is dyslexic. General Exam Limitations: no limitations General appearance: alert, in no apparent distress Head exam: Present: atraumatic, normocephalic, normal inspection Eye exam: Present: normal appearance, PERRL, EOMI. Absent: scleral icterus, conjunctival injection, periorbital swelling ENT exam: Present: normal exam, mucous membranes moist Neck exam: Present: normal inspection. Absent: tenderness, meningismus, lymphadenopathy Respiratory exam: Present: normal lung sounds bilaterally. Absent: respiratory distress, wheezes, rales, rhonchi, stridor Cardiovascular Exam: Present: regular rate, normal rhythm, normal heart sounds. Absent: systolic murmur, diastolic murmur, rubs, gallop, clicks GI/Abdominal exam: Present: soft, tenderness (Diffuse abdominal tenderness especially left lower quadrant and left lower quadrant panic tenderness with voluntary guarding.), guarding, normal bowel sounds. Absent: distended, rebound, rigid Extremities exam: Present: normal inspection, full ROM, normal capillary refill. Absent: tenderness, pedal edema, joint swelling, calf tenderness Back exam: Present: normal inspection, paraspinal tenderness. Absent: CVA tenderness (R), CVA tenderness (L) Neurological exam: Present: alert, oriented X3, CN II-XII intact Psychiatric exam: Present: normal affect, normal mood Skin exam: Present: warm, dry, intact, normal color. Absent: rash Course Vital Signs 09/08/24 09/08/24 15:39 17:33 Temperature 98.7 F Pulse Rate 82 83 Respiratory 18 19 Rate Blood Pressure 152/91 154/67 O2 Sat by Pulse 97 98 Oximetry Medical Decision Making - Medical Decision Making Was pt. sent in by a medical professional or institution (CARYN Leal, ELECTRIC CUTTER OPERATOR, urgent care, hospital, or prison...) When possible be specific @ -[No] Did you speak to anyone other than the patient for history (EMS, parent, family, police, friend...)? What history was obtained from this source @ -[No] Did you review nursing and triage notes (agree or disagree)? Why? @ -[I reviewed and agree with nursing and triage notes] Were old charts reviewed (outside hosp., previous admission, EMS record, old EKG, old radiological studies, urgent care reports/EKG's, prison records)? Report findings @ -[No old charts were reviewed] Differential Diagnosis (chest pain, altered mental status, abdominal pain women, abdominal pain men, vaginal bleeding, weakness, fever, dyspnea, syncope, headache, dizziness, GI bleed, back pain, seizure, CVA, palpatations, mental health, musculoskeletal)? @ -Differential Abdominal Pain Women: Appendicitis, Cholecystitis, diverticulosis, ischemic bowel, pancreatitis, hepatitis, UTI, gastroenteritis, AAA, incarcerated hernia, bowel obstruction, constipation, inflammatory bowel, hepatitis, peptic ulcer disease, splenic infarction, perforated viscus, vulvitis, ovarian torsion, PID, kidney stone, placenta abruption, this is not meant to be an all-inclusive list EKG interpreted by me (3pts min.). @ -[As above] X-rays interpreted by me (1pt min.). @ -[None done] CT interpreted by me (1pt min.). @ -[None done] U/S interpreted by me (1pt. min.). @ -[None done] What testing was considered but not performed or refused? (CT, X-rays, U/S, labs)? Why? @ -[None] What meds were considered but not given or refused? Why? @ -[None] Did you discuss the management of the patient with other professionals (professionals i.e. , PA, ELECTRIC CUTTER OPERATOR, lab, RT, psych nurse, social science instructor, lace and textiles restorer, teacher, mobile patrol officer, pillowcase sewer)? Give summary @ -[No] Was smoking cessation discussed for >3mins.? @ -[No] Was critical care preformed (if so, how long)? @ -[No] Were there social determinants of health that impacted care today? How? (Homelessness, low income, unemployed, alcoholism, drug addiction, transportation, low edu. Level, literacy, decrease access to med. care, retirement, rehab)? @ -[No] Was there de-escalation of care discussed even if they declined (Discuss DNR or withdrawal of care, Hospice)? DNR status @ -[No] What co-morbidities impacted this encounter? (DM, HTN, Smoking, COPD, CAD, Cancer, CVA, ARF, Chemo, Hep., AIDS, mental health diagnosis, sleep apnea, morbid obesity)? @ -[None] Was patient admitted / discharged? Hospital course, mention meds given and route, prescriptions, significant lab abnormalities, going to OR and other pertinent info. @ -[hospital course] Undiagnosed new problem with uncertain prognosis? @ -[No] Drug Therapy requiring intensive monitoring for toxicity (Heparin, Nitro, Insulin, Cardizem)? @ -[No] Were any procedures done? @ -[No] Diagnosis/symptom? @ -[default] Acute, or Chronic, or Acute on Chronic? @ -Acute Uncomplicated (without systemic symptoms) or Complicated (systemic symptoms)? @ -Complicated Side effects of treatment? @ -[No] Exacerbation, Progression, or Severe Exacerbation? @ -[No] Poses a threat to life or bodily function? How? (Chest pain, USA, NC, pneumonia, PE, COPD, DKA, ARF, appy, cholecystitis, CVA, Diverticulitis, Homicidal, Suicidal, threat to staff... and all critical care pts) @ -[No] - Lab Data Result diagrams: 09/08/24 16:18 Lab Results 09/08/24 09/08/24 09/08/24 Range/Units 16:18 16:18 16:18 WBC 13.2 H (3.8-10.6) k/uL RBC 4.83 (3.80-5.40) m/uL Hgb 13.7 (11.4-16.0) gm/dL Hct 40.4 (34.0-46.0) % MCV 83.7 (80.0-100.0) fL MCH 28.4 (25.0-35.0) pg MCHC 34.0 (31.0-37.0) g/dL RDW 13.9 (11.5-15.5) % Plt Count 348 (150-450) k/uL MPV 9.5 Neutrophils % 80 % Lymphocytes % 13 % Monocytes % 3 % Eosinophils % 2 % Basophils % 1 % Neutrophils # 10.5 H (1.3-7.7) k/uL Lymphocytes # 1.7 (1.0-4.8) k/uL Monocytes # 0.4 (0-1.0) k/uL Eosinophils # 0.3 (0-0.7) k/uL Basophils # 0.1 (0-0.2) k/uL Plasma Lactic Acid [place] (0.7-2.0) mmol/L Urine Color Yellow Urine Appearance Cloudy H (Clear) Urine pH 6.0 (5.0-8.0) Ur Specific [place] 1.025 (1.001-1.035) Urine Protein Negative (Negative) Urine Glucose (UA) Negative (Negative) Urine Ketones Negative (Negative) Urine Blood Small H (Negative) Urine Nitrite Positive H (Negative) Urine Bilirubin Negative (Negative) Urine Urobilinogen <2.0 (<2.0) mg/dL Ur Leukocyte Esterase Moderate H (Negative) Urine RBC 9 H (0-5) /hpf Urine WBC 13 H (0-5) /hpf Ur Squamous Epith Cells 3 (0-4) /hpf Urine Bacteria Rare H (None) /hpf Urine Mucus Few H (None) /hpf Urine HCG, Qual Not Detected (Not Detectd) 09/08/24 Range/Units 16:18 WBC (3.8-10.6) k/uL RBC (3.80-5.40) m/uL Hgb (11.4-16.0) gm/dL Hct (34.0-46.0) % MCV (80.0-100.0) fL MCH (25.0-35.0) pg MCHC (31.0-37.0) g/dL RDW (11.5-15.5) % Plt Count (150-450) k/uL MPV Neutrophils % % Lymphocytes % % Monocytes % % Eosinophils % % Basophils % % Neutrophils # (1.3-7.7) k/uL Lymphocytes # (1.0-4.8) k/uL Monocytes # (0-1.0) k/uL Eosinophils # (0-0.7) k/uL Basophils # (0-0.2) k/uL Plasma Lactic Acid [place] 1.9 (0.7-2.0) mmol/L Urine Color Urine Appearance (Clear) Urine pH (5.0-8.0) Ur Specific [place] (1.001-1.035) Urine Protein (Negative) Urine Glucose (UA) (Negative) Urine Ketones (Negative) Urine Blood (Negative) Urine Nitrite (Negative) Urine Bilirubin (Negative) Urine Urobilinogen (<2.0) mg/dL Ur Leukocyte Esterase (Negative) Urine RBC (0-5) /hpf Urine WBC (0-5) /hpf Ur Squamous Epith Cells (0-4) /hpf Urine Bacteria (None) /hpf Urine Mucus (None) /hpf Urine HCG, Qual (Not Detectd) Disposition Clinical Impression: UTI (urinary tract infection), Uterine fibroid Disposition: HOME SELF-CARE Condition: Good Prescriptions: Levofloxacin [Levaquin] 750 mg PO DAILY 10 Days #10 tab Is patient prescribed a controlled substance at d/c from ED?: No Referrals: Henry Lowe MD [Primary Care Provider] - 1-2 days Time of Disposition: 18:25
--- NOTE | 2024-09-08 16:28 | XR ---
EXAMINATION TYPE: XR KUB DATE OF EXAM: 09/08/2024 4:23 PM COMPARISON: Multiple prior abdominal radiographic studies, most recently dated 07/21/2024. CLINICAL INDICATION: Female, 43 years old with history of Left flank pain; [facility] TECHNIQUE: One radiographic view of the abdomen was obtained. FINDINGS: The bowel gas pattern is nonspecific without dilated loops of small or large bowel. . Fecal material and gas are demonstrated throughout the colon and rectum. There is no evidence for organomegaly or pneumoperitoneum. The osseous structures are intact. No ab normal calcifications are present. Surgical clips in the right upper quadrant suggesting previous cho lecystectomy. IMPRESSION: Nonspecific bowel gas pattern without radiographic evidence for acute process. [facility], , 09/08/2024 4:25 PM
[2024-09-08 16:42] LABS: Appearance,Urine Cloudy (Clear); Bacteria,Urine Rare /hpf; Bilirubin,Urine Negative (Negative); Blood,Urine Small (Negative); Color,Urine Yellow; Glucose,Urine (UA) Negative (Negative); Ketones,Urine Negative (Negative); Leukocyte Esterase,Urine Moderate (Negative); Mucus,Urine Few /hpf; Nitrite,Urine Positive (Negative); Protein,Urine Negative (Negative); RBC,Urine 9 /hpf (0-5); Specific Gravity,Urine 1.025 (1.001-1.035); Squamous Epithelial Cell,Urine 3 /hpf (0-4); Urobilinogen,Urine <2.0 mg/dL (<2.0); WBC,Urine 13 /hpf (0-5)
[2024-09-08 17:15] LABS: Basophils # (A) 0.1 k/uL (0-0.2); Basophils % (A) 1 %; Eosinophils # (A) 0.3 k/uL (0-0.7); Eosinophils % (A) 2 %; HCT 40.4 % (34.0-46.0); HGB 13.7 gm/dL (11.4-16.0); Lymphocytes # (A) 1.7 k/uL (1.0-4.8); Lymphocytes % (A) 13 %; MCH 28.4 pg (25.0-35.0); MCV 83.7 fL (80.0-100.0); Mean Platelet Volume 9.5; Monocytes # (A) 0.4 k/uL (0-1.0); Monocytes % (A) 3 %; Neutrophils # (A) 10.5 k/uL (1.3-7.7); Neutrophils % (A) 80 %; Platelet Count 348 k/uL (150-450); RBC 4.83 m/uL (3.80-5.40); RDW 13.9 % (11.5-15.5); WBC 13.2 k/uL (3.8-10.6)
--- NOTE | 2024-09-08 17:26 | US ---
EXAMINATION TYPE: US transvaginal DATE OF EXAM: 09/08/2024 COMPARISON: 07/30/2023 CLINICAL INDICATION: Female, 43 years old with history of Left lower abdominal pain; LLQ pain x 3 day s; Hx Ovarian cysts; Patient denies any other signs symptoms, or relevant history TECHNIQUE: Transvaginal (TV). Doppler imaging: Color Doppler Images were obtained. Spectral doppler images were obtained. FINDINGS: Date of LMP: 09/04/2024 EXAM MEASUREMENTS: Uterus: 9.2 x 2.9 x 5.4 cm Endometrial Stripe: 0.7 cm Right Ovary: 2.6 x 1.9 x 1.3 cm Left Ovary: 3.9 x 3.3 x 3.1 cm 1. Uterus: Anteverted heterogeneous echotexture. Complex heterogeneous lesion within the lower uterine segment/cervical area with vascularity = 1.7 x 1.6 x 2.4 cm Calcified area left uterine fundus = 1.9 x 1.4 x 1.9 cm 2. Endometrium: wnl 3. Right Ovary: Limited visualization; WNL as visualized 4. Left Ovary: Limited visualization; possible small hypoechoic hemorrhagic follicle measuring 2.5 c m. Spectral, color and waveform doppler imaging shows good arterial and venous flow within the ovarie s; there is no evidence for ovarian torsion. 5. Bilateral Adnexa: wnl 6. Posterior cul-de-sac: wnl IMPRESSION: 1. No sonographic evidence of acute abnormality in the pelvis. 2. Complex heterogeneous 2.4 cm lesion in the posterior uterine fundus felt to most likely reflect a fibroid. [facility], , 09/08/2024 5:24 PM
[2024-09-08] MEDS: HYDROmorphone 0.5 MG/0.5 ML SYRINGE IVP STA (17:31)
[2024-09-08] MEDS: LEVOFLOXACIN 750 MG TAB PO STA (17:32)
[2024-09-08 17:34] VITALS: RESP 19
[2024-09-08] MEDS: cefTRIAXone 1,000 MG VIAL (IM USE) IM STA (17:45)
[2024-09-08 18:24] LABS: ALT 21 U/L (4-34); African American GFR (CKD) >90 (>60 ml/min/1.73 sqM); Albumin 4.1 g/dL (3.5-5.0); Amylase 38 U/L (30-110); Anion Gap 9 mmol/L; Blood Urea Nitrogen 13 mg/dL (7-17); Calcium 9.2 mg/dL (8.4-10.2); Carbon Dioxide 25 mmol/L (22-30); Chloride 103 mmol/L (98-107); Glucose 99 mg/dL (74-99); Lipase 80 U/L (23-300); Non-African American GFR(CKD) >90 (>60 ml/min/1.73 sqM); Sodium 137 mmol/L (137-145); Total Bilirubin 0.4 mg/dL (0.2-1.3); Total Protein 7.3 g/dL (6.3-8.2)
[2024-09-08 18:46] LABS: AST 24 U/L (14-36); Alkaline Phosphatase 71 U/L (38-126); Potassium 4.3 mmol/L (3.5-5.1)
[2024-09-08 19:42] VITALS: BP 164/88; PULSE 79; TEMP 98.4
== END 2024-09-08 19:52 | disposition home or self-care (01) ==
LOC: EC 15:33
DX: N39.0 Urinary tract infection, site not specified (principal); D25.9 Leiomyoma of uterus, unspecified; Z88.5 Allergy status to narcotic agent; Z88.6 Allergy status to analgesic agent; Z88.8 Allergy status to other drugs, medicaments and biological substances; Z91.041 Radiographic dye allergy status; Z86.73 Personal history of transient ischemic attack (TIA), and cerebral infarction without residual deficits
CPT/HCPCS: 36415; 80053; 82150; 83605; 83690; 85025; 81001; 81025; 87086; 74018; 93975; 76830; 99285; 96365; 96375; J0696; J1171

== ENCOUNTER 2024-10-28 15:33 | Emergency (ER) | payer MEDICARE, OTHER ==
[2024-10-28 15:45] VITALS: TEMP 98.2
--- NOTE | 2024-10-28 16:43 | ED ---
Abdominal Pain HPI - General Chief Complaint: Abdominal Pain Stated Complaint: abd pain Time Seen by Provider: 10/28/24 16:35 Source: patient Mode of arrival: ambulatory Limitations: no limitations - History of Present Illness Initial Comments: 44-year-old female presenting with chief complaint of left-sided flank pain. Pain started yesterday. Patient admits to frequent urination. No dysuria or hematuria. No fevers or chills. No nausea or vomiting. Pain does wrap around to the abdomen. She does have history of kidney stones. No injury or trauma. No loss of bowel or bladder control or saddle paresthesia. She takes Troutman 10 for chronic back pain, these were not helping her pain at home - Related Data Home Medications Medication Instructions Recorded Confirmed Gabapentin [Neurontin] 300 mg PO TID 07/21/24 07/21/24 HYDROcodone/APAP 7.5-325MG [Troutman 1 tab PO TID 07/21/24 07/21/24 7.5-325] Ibuprofen [Motrin] 800 mg PO BID PRN 07/21/24 07/21/24 tiZANidine [Zanaflex] 4 mg PO BID 07/21/24 07/21/24 Previous Rx's Medication Instructions Recorded Levofloxacin [Levaquin] 750 mg PO DAILY 10 Days #10 tab 09/08/24 Allergies Allergy/AdvReac Type Severity Reaction Status Date / Time Iodinated Contrast Media Allergy Rash/Hives Verified 10/28/24 15:45 [Iodinated Contrast Media - IV Dye] iodine Allergy Rash/Hives Verified 10/28/24 15:45 Iodine and Iodide Containing Allergy Rash/Hives Verified 10/28/24 15:45 Produc ketorolac [From Toradol] Allergy Rash/Hives Verified 10/28/24 15:45 bupropion HCl AdvReac Unknown Homicidal Verified 10/28/24 15:45 [From Wellbutrin] Ideation aspirin AdvReac Nausea & Verified 10/28/24 15:45 Vomiting hydromorphone HCl AdvReac Diarrhea Verified 10/28/24 15:45 [From Dilaudid] propoxyphene napsylate AdvReac Nausea & Verified 10/28/24 15:45 [From Darvocet-N] Vomiting steroids Allergy Rash/Hives Uncoded 10/28/24 15:45 Review of Systems ROS Statement: Those systems with pertinent positive or pertinent negative responses have been documented in the HPI. ROS Other: All systems not noted in ROS Statement are negative. Past Medical History Past Medical History: Asthma, CVA/TIA, Hypertension, Seizure Disorder, Thyroid Disorder Additional Past Medical History / Comment(s): 11/2017 TIA or CVA (pt unsure) with resolved L sided weakness/aphasia but states still has short term memory loss, last seizure in 2017, frequent kidney infections, kidney stones she passed on her own, chronic cervical and low back pain, past fractured coccyx, gestational diabetes. ovarian cyst History of Any Multi-Drug Resistant Organisms: MRSA Date of last positivie culture/infection: 1999,2013, 2016 MDRO Source:: right leg Past Surgical History: Appendectomy, Section, Cholecystectomy, Tonsillectomy, Tubal Ligation Additional Past Surgical History / Comment(s): Multiple ear surgeries (x15 left ear & 13 right ear) ended up with eardrum replacements, x2 Past Anesthesia/Blood Transfusion Reactions: No Reported Reaction Additional Past Anesthesia/Blood Transfusion Reaction / Comment(s): PT STATES DIFFICULTY WAKING UP. PTS FATHER ALSO HAS DIFFICULTY WAKING UP. Past Psychological History: ADD/ADHD, Anxiety Smoking Status: Never smoker Past Alcohol Use History: None Reported Past Drug Use History: None Reported - Past Family History Mother Family Medical History: Cancer Additional Family Medical History / Comment(s): KIDNEY CANCER- in 2012 at the age of 68yrs. Father Family Medical History: CVA/TIA, Myocardial Infarction (AR) Additional Family Medical History / Comment(s): Father had 8 CVAs and 2 MIs. His first AR was at age 69yrs and 2nd AR was at age 71yrs. He has a pacemaker. He is dyslexic. General Exam Limitations: no limitations General appearance: alert, in no apparent distress Head exam: Present: atraumatic, normocephalic, normal inspection Eye exam: Present: normal appearance, EOMI Neck exam: Present: normal inspection. Absent: meningismus Respiratory exam: Present: normal lung sounds bilaterally. Absent: respiratory distress, wheezes, rales, rhonchi, stridor Cardiovascular Exam: Present: regular rate, normal rhythm, normal heart sounds. Absent: systolic murmur, diastolic murmur, rubs, gallop, clicks GI/Abdominal exam: Present: soft, tenderness. Absent: distended, guarding, rebound, rigid Neurological exam: Present: alert, oriented X3 Psychiatric exam: Present: normal affect, normal mood Skin exam: Present: warm, dry Course Vital Signs 10/28/24 10/28/24 10/28/24 15:43 18:54 19:28 Temperature 98.2 F Pulse Rate 79 73 73 Respiratory 16 18 18 Rate Blood Pressure 129/92 116/73 120/82 O2 Sat by Pulse 97 98 100 Oximetry Medical Decision Making - Medical Decision Making Was pt. sent in by a medical professional or institution (, PA, AIR SUPPORT OPERATIONS OPERATOR, urgent care, hospital, or detention...) When possible be specific @ -No Did you speak to anyone other than the patient for history (EMS, parent, family, police, friend...)? What history was obtained from this source @ -No Did you review nursing and triage notes (agree or disagree)? Why? @ -I reviewed and agree with nursing and triage notes Were old charts reviewed (outside hosp., previous admission, EMS record, old EKG, old radiological studies, urgent care reports/EKG's, detention records)? Report findings @ -No old charts were reviewed Differential Diagnosis (chest pain, altered mental status, abdominal pain women, abdominal pain men, vaginal bleeding, weakness, fever, dyspnea, syncope, headache, dizziness, GI bleed, back pain, seizure, CVA, palpatations, mental health, musculoskeletal)? @ - MDM Differential Back Pain: Strain, zoster, cauda equina syndrome, epidural abscess, vertebral osteomyelitis, discitis, fracture, subluxation, disc herniation, DJD, spinal stenosis, dissection, AAA, pancreatitis, peptic ulcer disease, pyelonephritis, kidney stone this is not meant to be an all-inclusive list. EKG interpreted by me (3pts min.). @ -As above X-rays interpreted by me (1pt min.). @ -None done CT interpreted by me (1pt min.). @ -CT shows no acute abnormality in the abdomen/pelvis or CT findings to explain reported symptoms U/S interpreted by me (1pt. min.). @ -None done What testing was considered but not performed or refused? (CT, X-rays, U/S, labs)? Why? @ -None What meds were considered but not given or refused? Why? @ -None Did you discuss the management of the patient with other professionals (professionals i.e. , PA, AIR SUPPORT OPERATIONS OPERATOR, lab, RT, psych nurse, social welfare clerk, cosmetic dentist, teacher, network security officer, pillowcase maker)? Give summary @ -No Was smoking cessation discussed for >3mins.? @ -No Was critical care preformed (if so, how long)? @ -No Were there social determinants of health that impacted care today? How? (Homelessness, low income, unemployed, alcoholism, drug addiction, transportation, low edu. Level, literacy, decrease access to med. care, long term, rehab)? @ -No Was there de-escalation of care discussed even if they declined (Discuss DNR or withdrawal of care, Hospice)? DNR status @ -No What co-morbidities impacted this encounter? (DM, HTN, Smoking, COPD, CAD, Cancer, CVA, ARF, Chemo, Hep., AIDS, mental health diagnosis, sleep apnea, morbid obesity)? @ -None Was patient admitted / discharged? Hospital course, mention meds given and route, prescriptions, significant lab abnormalities, going to OR and other per tinent info. @ -44-year-old female present with chief complaint of left-sided flank pain. History of kidney stones. History and physical examination are conducted. No red flag symptoms. White count 12.6. Urine shows 8 WBCs with 4 squamous cells, likely contaminated. CT shows no acute process. On reassessment patient reports improvement in her pain. She is educated on today's findings and supportive management at home. Follow-up with PCP. Report back to ER with any new or worsening symptoms. Discussed return parameters and answered all questions. Patient conveyed verbal understanding and agreed to the plan. I discussed this case in detail with my attending Dr. Long Undiagnosed new problem with uncertain prognosis? @ -No Drug Therapy requiring intensive monitoring for toxicity (Heparin, Nitro, Insulin, Cardizem)? @ -No Were any procedures done? @ -No Diagnosis/symptom? @ -Flank pain Acute, or Chronic, or Acute on Chronic? @ -Acute Uncomplicated (without systemic symptoms) or Complicated (systemic symptoms)? @ -Uncomplicated Side effects of treatment? @ -No Exacerbation, Progression, or Severe Exacerbation? @ -No Poses a threat to life or bodily function? How? (Chest pain, USA, AR, pneumonia, PE, COPD, DKA, ARF, appy, cholecystitis, CVA, Diverticulitis, Homicidal, Suicidal, threat to staff... and all critical care pts) @ -unlikely - Lab Data Result diagrams: 10/28/24 17:10 10/28/24 17:10 Lab Results 10/28/24 10/28/24 10/28/24 Range/Units 17:10 17:10 17:44 WBC 12.6 H (3.8-10.6) k/uL RBC 4.36 (3.80-5.40) m/uL Hgb 11.9 (11.4-16.0) gm/dL Hct 36.0 (34.0-46.0) % MCV 82.5 (80.0-100.0) fL MCH 27.2 (25.0-35.0) pg MCHC 32.9 (31.0-37.0) g/dL RDW 14.0 (11.5-15.5) % Plt Count 298 (150-450) k/uL MPV 7.5 Neutrophils % 80 % Lymphocytes % 13 % Monocytes % 4 % Eosinophils % 2 % Basophils % 0 % Neutrophils # 10.2 H (1.3-7.7) k/uL Lymphocytes # 1.6 (1.0-4.8) k/uL Monocytes # 0.5 (0-1.0) k/uL Eosinophils # 0.3 (0-0.7) k/uL Basophils # 0.0 (0-0.2) k/uL Sodium 136 L (137-145) mmol/L Potassium 4.0 (3.5-5.1) mmol/L Chloride 100 (98-107) mmol/L Carbon Dioxide 27 (22-30) mmol/L Anion Gap 9 mmol/L BUN 11 (7-17) mg/dL Creatinine 0.58 (0.52-1.04) mg/dL Est GFR (CKD-EPI)AfAm >90 (>60 ml/min/1.73 sqM) Est GFR (CKD-EPI)NonAf >90 (>60 ml/min/1.73 sqM) Glucose 114 H (74-99) mg/dL Calcium 8.9 (8.4-10.2) mg/dL Total Bilirubin 0.4 (0.2-1.3) mg/dL AST 20 (14-36) U/L ALT 18 (4-34) U/L Alkaline Phosphatase 80 (38-126) U/L Total Protein 7.2 (6.3-8.2) g/dL Albumin 3.9 (3.5-5.0) g/dL Urine Color Yellow Urine Appearance Cloudy H (Clear) Urine pH 6.0 (5.0-8.0) Ur Specific Maud 1.030 (1.001-1.035) Urine Protein Trace H (Negative) Urine Glucose (UA) Negative (Negative) Urine Ketones Negative (Negative) Urine Blood Negative (Negative) Urine Nitrite Negative (Negative) Urine Bilirubin Negative (Negative) Urine Urobilinogen <2.0 (<2.0) mg/dL Ur Leukocyte Esterase Moderate H (Negative) Urine WBC 8 H (0-5) /hpf Ur Squamous Epith Cells 4 (0-4) /hpf Urine Mucus Moderate H (None) /hpf Disposition Clinical Impression: Flank pain Disposition: HOME SELF-CARE Condition: Good Instructions (If sedation given, give patient instructions): Flank Pain (ED) Additional Instructions: Follow-up with PCP. Report back to ER with any new or worsening symptoms. Is patient prescribed a controlled substance at d/c from ED?: No Referrals: Henry Lowe MD [Primary Care Provider] - 1-2 days Time of Disposition: 19:18
[2024-10-28] MEDS: KETOROLAC 15 MG/ML 1 ML VIAL IVP STA (17:11)
[2024-10-28] MEDS: HYDROmorphone 0.5 MG/0.5 ML SYRINGE IVP STA ×2 (17:12→19:29)
[2024-10-28] MEDS: SODIUM CHLORIDE 0.9% 1,000 ML IV ONE (17:15)
[2024-10-28 17:48] LABS: Basophils % (A) 0 %; Eosinophils # (A) 0.3 k/uL (0-0.7); Eosinophils % (A) 2 %; HGB 11.9 gm/dL (11.4-16.0); Lymphocytes # (A) 1.6 k/uL (1.0-4.8); Lymphocytes % (A) 13 %; MCH 27.2 pg (25.0-35.0); MCHC 32.9 g/dL (31.0-37.0); MCV 82.5 fL (80.0-100.0); Mean Platelet Volume 7.5; Monocytes # (A) 0.5 k/uL (0-1.0); Monocytes % (A) 4 %; Neutrophils # (A) 10.2 k/uL (1.3-7.7); Neutrophils % (A) 80 %; Platelet Count 298 k/uL (150-450); RBC 4.36 m/uL (3.80-5.40); WBC 12.6 k/uL (3.8-10.6)
[2024-10-28 18:06] LABS: Appearance,Urine Cloudy (Clear); Bilirubin,Urine Negative (Negative); Blood,Urine Negative (Negative); Color,Urine Yellow; Glucose,Urine (UA) Negative (Negative); Ketones,Urine Negative (Negative); Leukocyte Esterase,Urine Moderate (Negative); Mucus,Urine Moderate /hpf; Nitrite,Urine Negative (Negative); Protein,Urine Trace (Negative); Squamous Epithelial Cell,Urine 4 /hpf (0-4); Urobilinogen,Urine <2.0 mg/dL (<2.0); WBC,Urine 8 /hpf (0-5)
[2024-10-28 18:08] LABS: ALT 18 U/L (4-34); AST 20 U/L (14-36); African American GFR (CKD) >90 (>60 ml/min/1.73 sqM); Albumin 3.9 g/dL (3.5-5.0); Alkaline Phosphatase 80 U/L (38-126); Anion Gap 9 mmol/L; Blood Urea Nitrogen 11 mg/dL (7-17); Calcium 8.9 mg/dL (8.4-10.2); Carbon Dioxide 27 mmol/L (22-30); Chloride 100 mmol/L (98-107); Glucose 114 mg/dL (74-99); Non-African American GFR(CKD) >90 (>60 ml/min/1.73 sqM); Sodium 136 mmol/L (137-145); Total Bilirubin 0.4 mg/dL (0.2-1.3); Total Protein 7.2 g/dL (6.3-8.2)
--- NOTE | 2024-10-28 18:39 | CT ---
EXAMINATION TYPE: CT abdomen pelvis wo con DATE OF EXAM: 10/28/2024 5:46 PM COMPARISON: Previous CT abdomen/pelvis 05/13/2023. CLINICAL INDICATION: Female, 44 years old with history of Left flank pain; left flank pain TECHNIQUE: Axial CT abdomen pelvis wo con;Sagittal and coronal reformats were created on a separate workstation. Oral contrast used: without Oral Contrast (none if empty) CT DLP: 1265.8 mGycm, Automated exposure control for dose reduction was used. FINDINGS: LOWER CHEST: Unremarkable ABDOMEN LIVER: Unremarkable GALLBLADDER AND BILE DUCTS: The gallbladder is surgically absent. PANCREAS: Unremarkable. SPLEEN: Mild splenomegaly. ADRENAL GLANDS: Unremarkable. KIDNEYS AND URETERS: No evidence of hydronephrosis or renal calculus. The ureters are unremarkable. PELVIS BLADDER: No evidence for wall thickening or mass given limitations of exam. REPRODUCTIVE: Uterus unremarkable. Right adnexal cystic lesion measuring 4.2 cm, which could be darion r evaluated with outpatient pelvic ultrasound as clinically indicated. ABDOMEN & PELVIS STOMACH AND BOWEL: Stomach and duodenum are unremarkable. Appendix unremarkable. No evidence of bowel obstruction. PERITONEUM/RETROPERITONEUM: No evidence of pneumoperitoneum or free fluid. VASCULATURE: No evidence of aortic aneurysm. MUSCULOSKELETAL: No acute osseous abnormalities LYMPH NODES: No gross evidence for lymphadenopathy. SOFT TISSUE/ABDOMINAL WALL: Unremarkable IMPRESSION: No acute abnormality in the abdomen/pelvis or CT findings to explain reported symptoms. [facility], , 10/28/2024 6:36 PM
[2024-10-28 18:55] VITALS: PULSE 73; RESP 18
[2024-10-28 19:29] VITALS: BP 120/82
== END 2024-10-28 19:50 | disposition home or self-care (01) ==
LOC: EC 15:33
DX: R10.9 Unspecified abdominal pain (principal); Z91.041 Radiographic dye allergy status; Z88.5 Allergy status to narcotic agent; Z88.6 Allergy status to analgesic agent; Z88.9 Allergy status to unspecified drugs, medicaments and biological substances; Z88.8 Allergy status to other drugs, medicaments and biological substances
CPT/HCPCS: 36415; 80053; 85025; 81001; 74176; 99284; 96374; 96375; 96376; 96361; J1885; J1171

== ENCOUNTER → 2024-10-29 | Outpatient (CLI) | payer MEDICARE, OTHER ==
[2024-10-29 19:43] LABS: Basophils # (A) 0.04 X 10*3/uL (0.00-0.10); Basophils % (A) 0.4 %; Eosinophils # (A) 0.22 X 10*3/uL (0.04-0.35); HCT 37.2 % (37.2-46.3); HGB 11.6 g/dL (12.0-15.0); Lymphocytes % (A) 14.3 %; MCH 26.7 pg (27.0-32.0); MCHC 31.2 g/dL (32.0-37.0); MCV 85.7 FL (80.0-97.0); Mean Platelet Volume 11.7 FL (9.5-12.2); Monocytes # (A) 0.53 X 10*3/uL (0.20-1.00); Monocytes % (A) 4.7 %; NRBC Per 100 WBC 0 X 10*3/uL (0.00-0.01); Neutrophils # (A) 8.77 X 10*3/uL (1.80-7.70); Neutrophils % (A) 78.1 %; Platelet Count 318 X 10*3/uL (140-440); RBC 4.34 X 10*6/uL (4.10-5.20); RDW 13.8 % (11.5-14.5); WBC 11.22 X 10*3/uL (4.50-10.00)
[2024-10-29 19:52] LABS: Blood Urea Nitrogen 9.3 mg/dL (9.0-27.0); Carbon Dioxide 24.8 mmol/L (21.6-31.8); Chloride 101 mmol/L (96-109); Glucose 110 mg/dL (70-110); Potassium 4.2 mmol/L (3.5-5.5); Sodium 135 mmol/L (135-145)
== END | disposition home or self-care (01) ==
LOC: LABPAT 14:06
PROVIDERS: ATTEND Obstetrics & Gynecology
DX: Z01.812 Encounter for preprocedural laboratory examination (principal); N92.1 Excessive and frequent menstruation with irregular cycle
CPT/HCPCS: 80051; 82565; 82947; 84520; 85025; 86850; 86900; 86901; 87086

== ENCOUNTER 2024-12-03 13:51 | Emergency (ER) | payer MEDICARE, OTHER ==
--- NOTE | 2024-12-03 14:16 | ED ---
General Adult HPI - General Source: patient Mode of arrival: wheelchair Limitations: no limitations <Kamari Gustafson - Last Filed: 12/03/24 15:51> <Luis Eduardo Henry - Last Filed: 12/03/24 17:04> - General Chief complaint: Recheck/Abnormal Lab/Rx Stated complaint: post-op pain Time Seen by Provider: 12/03/24 14:05 - History of Present Illness Initial comments: Dictation was produced using PWA dictation software. please excuse any grammatical, word or spelling errors. Chief Complaint: 44-year-old female with severe left abdominal pain History of Present Illness: Patient is a 44-year-old female with past medical history of hypertension seizure disorder thyroid disease. States that last month she had a hysterectomy for vaginal bleeding. States she is here today for 1 to 2 days of left-sided abdominal pain. No nausea vomiting. No fever, chills or night sweats. No diarrhea. The ROS documented in this emergency department record has been reviewed and confirmed by me. Those systems with pertinent positive or negative responses have been documented in the HPI. All other systems are other negative and/or noncontributory. (Kamari Gustafson) - Related Data Home Medications Medication Instructions Recorded Confirmed HYDROcodone/APAP 10-325MG [[facility] 1 tab PO TID 10/30/24 12/03/24 10-325] Allergies Allergy/AdvReac Type Severity Reaction Status Date / Time Iodinated Contrast Media Allergy Rash/Hives Verified 12/03/24 16:06 [Iodinated Contrast Media - IV Dye] iodine Allergy Rash/Hives Verified 12/03/24 16:06 Iodine and Iodide Containing Allergy Rash/Hives Verified 12/03/24 16:06 Produc ketorolac [From Toradol] Allergy Rash/Hives Verified 12/03/24 16:06 bupropion HCl AdvReac Unknown Homicidal Verified 12/03/24 16:06 [From Wellbutrin] Ideation aspirin AdvReac Nausea & Verified 12/03/24 16:06 Vomiting morphine AdvReac Chest Pain Verified 12/03/24 16:06 propoxyphene napsylate AdvReac Nausea & Verified 12/03/24 16:06 [From Darvocet-N] Vomiting steroids Allergy Rash/Hives Uncoded 12/03/24 16:06 Review of Systems ROS Other: All systems not noted in ROS Statement are negative. <Kamari Gustafson - Last Filed: 12/03/24 15:51> ROS Other: All systems not noted in ROS Statement are negative. <Luis Eduardo Henry Tashi - Last Filed: 12/03/24 17:04> ROS Statement: Those systems with pertinent positive or pertinent negative responses have been documented in the HPI. Past Medical History Past Medical History: Asthma, CVA/TIA, Hypertension, Seizure Disorder, Thyroid Disorder Additional Past Medical History / Comment(s): 11/2017 TIA or CVA (pt unsure) with resolved L sided weakness/aphasia but states still has short term memory loss, last seizure in 2016, frequent kidney infections, kidney stones she passed on her own, chronic cervical and low back pain, past fractured coccyx, gestational diabetes. ovarian cyst History of Any Multi-Drug Resistant Organisms: MRSA Date of last positivie culture/infection: 1999,2013, 2016 MDRO Source:: right leg Past Surgical History: Appendectomy, Section, Cholecystectomy, Tonsillectomy, Tubal Ligation Additional Past Surgical History / Comment(s): Multiple ear surgeries (x15 left ear & 13 right ear) ended up with eardrum replacements, x2 Past Anesthesia/Blood Transfusion Reactions: No Reported Reaction Additional Past Anesthesia/Blood Transfusion Reaction / Comment(s): PT STATES DIFFICULTY WAKING UP. PTS FATHER ALSO HAS DIFFICULTY WAKING UP. Past Psychological History: ADD/ADHD, Anxiety Smoking Status: Never smoker Past Alcohol Use History: None Reported Past Drug Use History: None Reported - Past Family History Mother Family Medical History: Cancer Additional Family Medical History / Comment(s): KIDNEY CANCER- in 2012 at the age of 68yrs. Father Family Medical History: CVA/TIA, Myocardial Infarction (OR) Additional Family Medical History / Comment(s): Father had 8 CVAs and 2 MIs. His first OR was at age 69yrs and 2nd OR was at age 71yrs. He has a pacemaker. He is dyslexic. <Kamari Gustafson - Last Filed: 12/03/24 15:51> General Exam Limitations: no limitations <Kamari Gustafson - Last Filed: 12/03/24 15:51> - General Exam Comments Initial Comments: PHYSICAL EXAM: General Impression: Alert and oriented x3, not in acute distress HEENT: Normocephalic atraumatic, extra-ocular movements intact, pupils equal and reactive to light bilaterally, mucous membranes moist. Cardiovascular: Heart regular rate and rhythm Chest: Able to complete full sentences, no retractions, no tachypnea Abdomen: abdomen soft, palpatory tenderness to the left abdomen, non-distended, no organomegaly Musculoskeletal: Pulses present and equal in all extremities, no peripheral edema Motor: no focal deficits noted Neurological: CN II-XII grossly intact, no focal motor or sensory deficits noted Skin: Intact with no visualized rashes Psych: Normal affect and mood (Kamari Gustafson) Course Vital Signs 12/03/24 12/03/24 13:53 14:45 Temperature 97.2 F L Pulse Rate 76 72 Respiratory 18 18 Rate Blood Pressure 130/80 147/87 O2 Sat by Pulse 98 98 Oximetry Medical Decision Making - Lab Data Result diagrams: 12/03/24 14:21 12/03/24 14:21 <Kamari Gustafson - Last Filed: 12/03/24 15:51> - Lab Data Result diagrams: 12/03/24 14:21 12/03/24 14:21 <Luis Eduardo Henry - Last Filed: 12/03/24 17:04> - Medical Decision Making Was pt. sent in by a medical professional or institution ([facility], [employer], urgent care, hospital, or retirement...) When possible be specific @ -No Did you speak to anyone other than the patient for history (EMS, parent, family, police, friend...)? What history was obtained from this source @ -No Did you review nursing and triage notes (agree or disagree)? Why? @ -I reviewed and agree with nursing and triage notes Were old charts reviewed (outside hosp., previous admission, EMS record, old EKG, old radiological studies, urgent care reports/EKG's, retirement records)? Report findings @ -No old charts were reviewed Differential Diagnosis (chest pain, altered mental status, abdominal pain women, abdominal pain men, vaginal bleeding, musculoskeletal, weakness, fever, dyspnea, syncope, headache, dizziness, GI bleed, back pain, seizure, CVA, palpatations, mental health)? @ -Differential Abdominal Pain Women: Appendicitis, Cholecystitis, diverticulosis, ischemic bowel, pancreatitis, hep atitis, UTI, gastroenteritis, AAA, incarcerated hernia, bowel obstruction, constipation, inflammatory bowel, hepatitis, peptic ulcer disease, splenic infarction, perforated viscus, vulvitis, ovarian torsion, PID, kidney stone, placenta abruption, this is not meant to be an all-inclusive list EKG interpreted by me (3pts min.). @ -None done X-rays interpreted by me (1pt min.). @ -None done CT interpreted by me (1pt min.). @ -CT of the ab and pelvis shows postoperative changes. There does appear to be a left ovarian cystic lesion measuring 4.6 cm. No other acute processes noted. U/S interpreted by me (1pt. min.). @ -Pending What testing was considered but not performed or refused? (CT, X-rays, U/S, labs)? Why? @ -None What meds were considered but not given or refused? Why? @ -None Was smoking cessation discussed for >3mins.? @ -No Were there social determinants of health that impacted care today? How? (Homelessness, low income, unemployed, alcoholism, drug addiction, transporta tion, low edu. Level, literacy, decrease access to med. care, detention, rehab)? @ -No Was there de-escalation of care discussed even if they declined (Discuss DNR or withdrawal of care, Hospice)? DNR status @ -No What co-morbidities impacted this encounter? (DM, HTN, Smoking, COPD, CAD, Cancer, CVA, ARF, Chemo, Hep., AIDS, mental health diagnosis, sleep apnea, morbid obesity)? @ -None Was patient admitted / discharged? Hospital course, mention meds given and route, prescriptions, significant lab abnormalities, going to OR and other pertinent info. @ -44-year-old female presents with left lower quadrant abdominal pain. Vital signs stable. Patient well-appearing at the bedside no acute distress. Vital signs stable. Patient given analgesics. Laboratory evaluation obtained. Labs within acceptable limits. CT shows left cystic ovary. Operative notes reviewed. Patient had laparoscopic hysterectomy and with bilateral salpingectomy. Patient reevaluated at bedside 3:38 PM found to be stable condition. States that her pain feels better. Patient pending transvaginal ultrasound for ev aluation of large left ovarian cyst Did you discuss the management of the patient with other professionals (professionals i.e. DrDaina, PA, [employer], lab, RT, psych nurse, elementary school social worker, machine helper, teacher, morale officer, assistant case manager)? Give summary @ -No Was critical care preformed (if so, how long)? @ -No Undiagnosed new problem with uncertain prognosis? @ -No Drug Therapy requiring intensive monitoring for toxicity (Heparin, Nitro, Insulin, Cardizem)? @ -No Were any procedures done? @ -No Diagnosis/symptom? Acute, or Chronic, or Acute on Chronic? Uncomplicated (without systemic symptoms) or Complicated (systemic symptoms)? @ -Left abdominal pain Side effects of treatment? @ -No Exacerbation, Progression, or Severe Exacerbation? @ -No Poses a threat to life or bodily function? How? (Chest pain, USA, OR, pneumonia, PE, COPD, DKA, ARF, appy, cholecystitis, CVA, Diverticulitis, Homicidal, S uicidal, threat to staff... and all critical care pts) @ -yes Patient care signed out to Dr. Henry at 4:00 PM (Kamari Gustafson) 44-year-old female pending ultrasound of the left ovary this shows moderate cyst without evidence of compromised blood flow. No torsion. Laboratory test including CBC, CMP urinalysis unremarkable. Patient stable for discharge with outpatient follow-up. (Luis Eduardo Henry) - Lab Data Lab Results 12/03/24 12/03/24 12/03/24 Range/Units 14:21 14:21 15:33 WBC 13.5 H (3.8-10.6) k/uL RBC 4.80 (3.80-5.40) m/uL Hgb 12.6 (11.4-16.0) gm/dL Hct 39.5 (34.0-46.0) % MCV 82.4 (80.0-100.0) fL MCH 26.1 (25.0-35.0) pg MCHC 31.7 (31.0-37.0) g/dL RDW 14.3 (11.5-15.5) % Plt Count 338 (150-450) k/uL MPV 7.6 Neutrophils % 75 % Lymphocytes % 14 % Monocytes % 4 % Eosinophils % 6 % Basophils % 0 % Neutrophils # 10.2 H (1.3-7.7) k/uL Lymphocytes # 1.9 (1.0-4.8) k/uL Monocytes # 0.5 (0-1.0) k/uL Eosinophils # 0.8 H (0-0.7) k/uL Basophils # 0.0 (0-0.2) k/uL Sodium 136 L (137-145) mmol/L Potassium 4.3 (3.5-5.1) mmol/L Chloride 101 (98-107) mmol/L Carbon Dioxide 24 (22-30) mmol/L Anion Gap 11 mmol/L BUN 12 (7-17) mg/dL Creatinine 0.56 (0.52-1.04) mg/dL Est GFR (CKD-EPI)AfAm >90 (>60 ml/min/1.73 sqM) Est GFR (CKD-EPI)NonAf >90 (>60 ml/min/1.73 sqM) Glucose 100 H (74-99) mg/dL Calcium 8.9 (8.4-10.2) mg/dL Total Bilirubin 0.4 (0.2-1.3) mg/dL AST 18 (14-36) U/L ALT 18 (4-34) U/L Alkaline Phosphatase 74 (38-126) U/L Total Protein 7.4 (6.3-8.2) g/dL Albumin 4.0 (3.5-5.0) g/dL Lipase 77 (23-300) U/L Urine Color Yellow Urine Appearance Cloudy H (Clear) Urine pH 5.5 (5.0-8.0) Ur Specific [place] 1.025 (1.001-1.035) Urine Protein Negative (Negative) Urine Glucose (UA) Negative (Negative) Urine Ketones Negative (Negative) Urine Blood Negative (Negative) Urine Nitrite Negative (Negative) Urine Bilirubin Negative (Negative) Urine Urobilinogen <2.0 (<2.0) mg/dL Ur Leukocyte Esterase Trace H (Negative) Urine WBC 6 H (0-5) /hpf Ur Squamous Epith Cells 4 (0-4) /hpf Urine Bacteria Rare H (None) /hpf Urine Mucus Occasional H (None) /hpf Disposition <Kamari Gustafson - Last Filed: 12/03/24 15:51> Is patient prescribed a controlled substance at d/c from ED?: No Time of Disposition: 17:04 <Luis Eduardo Henry - Last Filed: 12/03/24 17:04> Clinical Impression: Abdominal pain Disposition: HOME SELF-CARE Condition: Fair Instructions (If sedation given, give patient instructions): Abdominal Pain (ED) Referrals: Henry Lowe MD [Primary Care Provider] - 1-2 days
[2024-12-03] MEDS: HYDROmorphone 1 MG/ML 1 ML SYRINGE IVP STA (14:26)
[2024-12-03] MEDS: methylPREDNISolone SOD SUCCI 125 MG/2 ML VIAL IV STA (14:28)
[2024-12-03 14:29] LABS: Basophils % (A) 0 %; Eosinophils # (A) 0.8 k/uL (0-0.7); Eosinophils % (A) 6 %; HCT 39.5 % (34.0-46.0); HGB 12.6 gm/dL (11.4-16.0); Lymphocytes # (A) 1.9 k/uL (1.0-4.8); Lymphocytes % (A) 14 %; MCH 26.1 pg (25.0-35.0); MCHC 31.7 g/dL (31.0-37.0); MCV 82.4 fL (80.0-100.0); Mean Platelet Volume 7.6; Monocytes # (A) 0.5 k/uL (0-1.0); Monocytes % (A) 4 %; Neutrophils # (A) 10.2 k/uL (1.3-7.7); Neutrophils % (A) 75 %; Platelet Count 338 k/uL (150-450); RDW 14.3 % (11.5-15.5); WBC 13.5 k/uL (3.8-10.6)
[2024-12-03] MEDS: diphenhydrAMINE 50 MG/ML 1 ML VIAL IVP STA (14:30)
[2024-12-03] MEDS: FAMOTIDINE 20 MG/2 ML VIAL IV STA (14:31)
[2024-12-03 14:40] LABS: ALT 18 U/L (4-34); AST 18 U/L (14-36); African American GFR (CKD) >90 (>60 ml/min/1.73 sqM); Alkaline Phosphatase 74 U/L (38-126); Anion Gap 11 mmol/L; Blood Urea Nitrogen 12 mg/dL (7-17); Calcium 8.9 mg/dL (8.4-10.2); Carbon Dioxide 24 mmol/L (22-30); Chloride 101 mmol/L (98-107); Glucose 100 mg/dL (74-99); Lipase 77 U/L (23-300); Non-African American GFR(CKD) >90 (>60 ml/min/1.73 sqM); Potassium 4.3 mmol/L (3.5-5.1); Sodium 136 mmol/L (137-145); Total Bilirubin 0.4 mg/dL (0.2-1.3); Total Protein 7.4 g/dL (6.3-8.2)
--- NOTE | 2024-12-03 15:22 | CT ---
EXAMINATION TYPE: CT abdomen pelvis w con CT DLP: 1733.9 mGycm, Automated exposure control for dose reduction was used. DATE OF EXAM: 12/03/2024 3:11 PM COMPARISON: CT abdomen pelvis 10/28/2024, 05/13/2023 CLINICAL INDICATION:Female, 44 years old with history of severe left abdominal painx 2 days; Severe l eft abdominal pain x2 days. TECHNIQUE: Standard CT of the abdomen and pelvis following the administration of 100 cc of Isovue 3 00 IV contrast material. Coronal and sagittal reformats were performed. FINDINGS: LOWER CHEST: The visualized lungs are clear. Mild prominence of the heart. ABDOMEN LIVER: Unremarkable GALLBLADDER AND BILE DUCTS: The gallbladder is surgically absent. No biliary ductal dilatation. PANCREAS: Unremarkable. SPLEEN: Unremarkable. ADRENAL GLANDS: Unremarkable. KIDNEYS AND URETERS: No evidence of hydronephrosis or renal calculus. The kidneys enhance symmetrical ly. Contrast is demonstrated within both collecting systems on the delayed phase. PELVIS BLADDER: Underdistended which limits evaluation. REPRODUCTIVE: The uterus is surgically absent. No evidence of organized fluid collection. Enlarging l eft ovarian cystic lesion measuring up to 4.6 cm. Previously measured up to 2.3 cm. Previously seen r ight ovarian lesion is no longer visualized. ABDOMEN & PELVIS STOMACH AND BOWEL: Stomach and duodenum are unremarkable. Scattered distal colonic diverticulosis wit hout evidence for acute diverticulitis. No focal bowel wall thickening or surrounding inflammatory ch anges. The appendix is within normal limits. No evidence of bowel obstruction. PERITONEUM: No evidence of pneumoperitoneum or free fluid. VASCULATURE: No evidence of aortic aneurysm. MUSCULOSKELETAL: No acute osseous abnormalities. Benign vertebral hemangioma involving the L1 vertebr al body. LYMPH NODES: No evidence for lymphadenopathy. SOFT TISSUE/ABDOMINAL WALL: Small fat filled umbilical hernia. IMPRESSION: 1. Postsurgical changes from hysterectomy with increasing size of left ovarian cystic lesion measurin g up to 4.6 cm. Previously seen right ovarian lesion is no longer visualized. Recommend further evalu ation with pelvic ultrasound. 2. Colonic diverticulosis without evidence for acute diverticulitis. [facility], , 12/03/2024 3:20 PM
[2024-12-03 16:23] LABS: Appearance,Urine Cloudy (Clear); Bacteria,Urine Rare /hpf; Bilirubin,Urine Negative (Negative); Blood,Urine Negative (Negative); Color,Urine Yellow; Glucose,Urine (UA) Negative (Negative); Ketones,Urine Negative (Negative); Leukocyte Esterase,Urine Trace (Negative); Mucus,Urine Occasional /hpf; Nitrite,Urine Negative (Negative); PH, Urine 5.5 (5.0-8.0); Protein,Urine Negative (Negative); Specific Gravity,Urine 1.025 (1.001-1.035); Squamous Epithelial Cell,Urine 4 /hpf (0-4); Urobilinogen,Urine <2.0 mg/dL (<2.0); WBC,Urine 6 /hpf (0-5)
--- NOTE | 2024-12-03 16:54 | US ---
EXAMINATION TYPE: US pelvic complete DATE OF EXAM: 12/03/2024 COMPARISON: CT: Today. US: 09/08/24 CLINICAL INDICATION: Female, 44 years old with history of left abdominal pain; Left sided abdominal p ain x 1 day. Hysterectomy on 11/10/24 TECHNIQUE: Transabdominal (TA). Transabdominal grayscale sonographic images of the pelvis were acquired. Doppler imaging: Color Doppler Images were obtained. Spectral doppler images were obtained on left ovary. FINDINGS: Date of LMP: unknown EXAM MEASUREMENTS: Uterus: Surgically absent Right Ovary: not seen Left Ovary: 5.7 x 5.2 x 4.5 cm 1. Uterus: Surgically absent 2. Endometrium: Surgically absent 3. Right Ovary: not seen due to atrophy and bowel gas 4. Left Ovary: large cystic area seen measuring 5.2 x 4.2 x 3.5cm Spectral, color and waveform doppler imaging shows good arterial and venous flow within the left ov sangeeta; there is no evidence for ovarian torsion. 5. Bilateral Adnexa: wnl 6. Posterior cul-de-sac: wnl Right ovary is not seen due to atrophy and overlying bowel gas. The left ovary demonstrates good denis rial and venous flow without evidence for torsion. Simple appearing left ovarian cyst measuring up to 5.2 cm. No free fluid. The uterus and endometrium are surgical absent. IMPRESSION: 1. Postsurgical changes from hysterectomy without evidence for organized fluid collection within the pelvis. 2. Left ovarian simple appearing cyst measuring up to 5.2 cm. 3. Nonvisualization of the right ovary due to atrophy and/or overlying bowel gas. [facility], , 12/03/2024 4:52 PM
[2024-12-03 17:47] VITALS: BP 151/88; PULSE 81; RESP 20; TEMP 98.2
== END 2024-12-03 17:48 | disposition home or self-care (01) ==
LOC: EC 13:51
DX: R10.32 Left lower quadrant pain (principal); I10 Essential (primary) hypertension; G40.909 Epilepsy, unspecified, not intractable, without status epilepticus
CPT/HCPCS: 36415; 80053; 83690; 85025; 81001; 93976; 76856; 74177; 99284; 96374; 96375; J1200; J3490; J1171; Q9967; J2919

== ENCOUNTER 2024-12-05 21:12 | Emergency (ER) | payer MEDICARE, OTHER ==
--- NOTE | 2024-12-05 22:29 | ED ---
Abdominal Pain HPI - General Source: patient, RN notes reviewed Mode of arrival: ambulatory Limitations: no limitations <PedroSandyLu - Last Filed: 12/05/24 22:28> <Micki Montgomery - Last Filed: 12/06/24 04:10> - General Chief Complaint: Abdominal Pain Stated Complaint: Left side pain Time Seen by Provider: 12/05/24 22:28 - History of Present Illness Initial Comments: Quick [id number] female presenting for left lower abdominal pain. States she was diagnosed with left ovarian cyst earlier this week however reports pain has been worsening and is now sharp. Denies nausea, vomiting, diarrhea, vaginal bleeding or discharge. (Lu Vasquez) 44-year-old female presenting to the emergency department for chief complaint of left lower quadrant abdominal pain. Patient was evaluated few days ago the emergency room for similar symptoms where she was diagnosed with a left ovarian cyst. She states that over the past day her pain has been worsening and is now described as a sharp sensation. Has appointment scheduled with OB for follow-up next week. She denies nausea, vomiting, diarrhea, vaginal bleeding or discharge. Denies dysuria, hematuria, increased urinary frequency or urgency. History of radical hysterectomy (Micki Montgomery) - Related Data Home Medications Medication Instructions Recorded Confirmed HYDROcodone/APAP 10-325MG [[place] 1 tab PO TID 10/30/24 12/03/24 10-325] Allergies Allergy/AdvReac Type Severity Reaction Status Date / Time Iodinated Contrast Media Allergy Rash/Hives Verified 12/05/24 21:51 [Iodinated Contrast Media - IV Dye] iodine Allergy Rash/Hives Verified 12/05/24 21:51 Iodine and Iodide Containing Allergy Rash/Hives Verified 12/05/24 21:51 Produc ketorolac [From Toradol] Allergy Rash/Hives Verified 12/05/24 21:51 bupropion HCl AdvReac Unknown Homicidal Verified 12/05/24 21:51 [From Wellbutrin] Ideation aspirin AdvReac Nausea & Verified 12/05/24 21:51 Vomiting morphine AdvReac Chest Pain Verified 12/05/24 21:51 propoxyphene napsylate AdvReac Nausea & Verified 12/05/24 21:51 [From Darvocet-N] Vomiting steroids Allergy Rash/Hives Uncoded 12/05/24 21:51 Review of Systems ROS Other: All systems not noted in ROS Statement are negative. <Lu Vasquez - Last Filed: 12/05/24 22:28> ROS Other: All systems not noted in ROS Statement are negative. <ValentinaMicki - Last Filed: 12/06/24 04:10> ROS Statement: Those systems with pertinent positive or pertinent negative responses have been documented in the HPI. Past Medical History Past Medical History: Asthma, CVA/TIA, Hypertension, Seizure Disorder, Thyroid Disorder Additional Past Medical History / Comment(s): 11/2017 TIA or CVA (pt unsure) with resolved L sided weakness/aphasia but states still has short term memory loss, last seizure in 2016, frequent kidney infections, kidney stones she passed on her own, chronic cervical and low back pain, past fractured coccyx, gestational diabetes. ovarian cyst History of Any Multi-Drug Resistant Organisms: MRSA Date of last positivie culture/infection: 1999,2013, 2016 MDRO Source:: right leg Past Surgical History: Appendectomy, Section, Cholecystectomy, Tonsillectomy, Tubal Ligation Additional Past Surgical History / Comment(s): Multiple ear surgeries (x15 left ear & 13 right ear) ended up with eardrum replacements, x2 Past Anesthesia/Blood Transfusion Reactions: No Reported Reaction Additional Past Anesthesia/Blood Transfusion Reaction / Comment(s): PT STATES DIFFICULTY WAKING UP. PTS FATHER ALSO HAS DIFFICULTY WAKING UP. Past Psychological History: ADD/ADHD, Anxiety Smoking Status: Never smoker Past Alcohol Use History: None Reported Past Drug Use History: None Reported - Past Family History Mother Family Medical History: Cancer Additional Family Medical History / Comment(s): KIDNEY CANCER- in 2012 at the age of 68yrs. Father Family Medical History: CVA/TIA, Myocardial Infarction (LA) Additional Family Medical History / Comment(s): Father had 8 CVAs and 2 MIs. His first LA was at age 69yrs and 2nd LA was at age 71yrs. He has a pacemaker. He is dyslexic. <Lu Vasquez - Last Filed: 12/05/24 22:28> General Exam Limitations: no limitations <Lu Vasquez - Last Filed: 12/05/24 22:28> General appearance: alert, in no apparent distress Respiratory exam: Present: normal lung sounds bilaterally. Absent: respiratory distress, wheezes, rales, rhonchi, stridor Cardiovascular Exam: Present: regular rate, normal rhythm, normal heart sounds. Absent: systolic murmur, diastolic murmur, rubs, gallop, clicks GI/Abdominal exam: Present: soft, tenderness (LLQ/pelvic), normal bowel sounds. Absent: distended, guarding, rebound, rigid Extremities exam: Present: normal inspection, full ROM, normal capillary refill. Absent: tenderness, pedal edema, joint swelling, calf tenderness Back exam: Present: normal inspection <Micki Montgomery - Last Filed: 12/06/24 04:10> - General Exam Comments Initial Comments: Visual Physical Exam Vital signs reviewed General: Well-appearing, nontoxic, no acute distress. Head: Normocephalic, atraumatic Eyes: PERRLA, EOMI ENT: Airway patent Chest: Nonlabored breathing Skin: No visual rash, normal skin tone Neuro: Alert and oriented 3 Musculoskeletal: No gross abnormalities (Lu Vasquez) Course Vital Signs 12/05/24 12/06/24 21:48 01:12 Temperature 98.0 F 98.1 F Pulse Rate 75 78 Respiratory 20 18 Rate Blood Pressure 129/82 126/80 O2 Sat by Pulse 99 99 Oximetry Medical Decision Making <Lu Vasquez - Last Filed: 12/05/24 22:28> - Lab Data Result diagrams: 12/05/24 23:43 12/05/24 23:43 <Micki Montgomery - Last Filed: 12/06/24 04:10> - Medical Decision Making I completed the quick note portion of this chart signed Lu Vasquez PA-C (Lu Vasquez) Was pt. sent in by a medical professional or institution (CARYN Leal, EQUIPMENT MECHANIC SPECIALIST, urgent care, hospital, or fci...) When possible be specific @ -No Did you speak to anyone other than the patient for history (EMS, parent, family, police, friend...)? What history was obtained from this source @ -No Did you review nursing and triage notes (agree or disagree)? Why? @ -I reviewed and agree with nursing and triage notes Were old charts reviewed (outside hosp., previous admission, EMS record, old EKG, old radiological studies, urgent care reports/EKG's, fci records)? Report findings @ -Reviewed CT of the abdomen pelvis completed on 12/03/2024 that was remarkable for a 4.6 cm left ovarian lesion/cyst. Differential Diagnosis (chest pain, altered mental status, abdominal pain women, abdominal pain men, vaginal bleeding, weakness, fever, dyspnea, syncope, headache, dizziness, GI bleed, back pain, seizure, CVA, palpatations, mental health, musculoskeletal)? @ -Differential Abdominal Pain Women: Appendicitis, Cholecystitis, diverticulosis, ischemic bowel, pancreatitis, hepatitis, UTI, gastroenteritis, AAA, incarcerated hernia, bowel obstruction, constipation, inflammatory bowel, hepatitis, peptic ulcer disease, splenic infarction, perforated viscus, vulvitis, ovarian torsion, PID, kidney stone, placenta abruption, this is not meant to be an all-inclusive list EKG interpreted by me (3pts min.). @ -none X-rays interpreted by me (1pt min.). @ -None done CT interpreted by me (1pt min.). @ -None done U/S interpreted by me (1pt. min.). @ -Pelvic ultrasound completed with a left cystic lesion of the left ovary measuring 4.6 x 5.1 x 4.7 cm with no evidence of ovarian torsion What testing was considered but not performed or refused? (CT, X-rays, U/S, labs)? Why? @ -None What meds were considered but not given or refused? Why? @ -None Did you discuss the management of the patient with other professionals (professionals i.e. , PA, EQUIPMENT MECHANIC SPECIALIST, lab, RT, psych nurse, rn social services, internal recruiter, teacher, senior officer, manager of case management)? Give summary @ -No Was smoking cessation discussed for >3mins.? @ -No Was critical care preformed (if so, how long)? @ -No Were there social determinants of health that impacted care today? How? (Homelessness, low income, unemployed, alcoholism, drug addiction, transportation, low edu. Level, literacy, decrease access to med. care, snf, rehab)? @ -No Was there de-escalation of care discussed even if they declined (Discuss DNR or withdrawal of care, Hospice)? DNR status @ -No What co-morbidities impacted this encounter? (DM, HTN, Smoking, COPD, CAD, Cancer, CVA, ARF, Chemo, Hep., AIDS, mental health diagnosis, sleep apnea, morbid obesity)? @ -None Was patient admitted / discharged? Hospital course, mention meds given and route, prescriptions, significant lab abnormalities, going to OR and other pertinent info. @ -Discharge. 43-year-old female presenting with left lower abdominal/pelvic pa in with known left ovarian cyst. Pain is reproducible with palpation. Her vitals are stable. She is provided with pain medication. Labs within acceptable limits, urinalysis is unremarkable. Ultrasound reveals a stable left ovarian cyst. Patient provided with pain medications and instructed to follow- up with finisher operator as scheduled. Case discussed with Dr. vazquez Undiagnosed new problem with uncertain prognosis? @ -No Drug Therapy requiring intensive monitoring for toxicity (Heparin, Nitro, Insulin, Cardizem)? @ -No Were any procedures done? @ -No Diagnosis/symptom? @ -Ovarian cyst Acute, or Chronic, or Acute on Chronic? @ -Acute Uncomplicated (without systemic symptoms) or Complicated (systemic symptoms)? @ -Uncomplicated Side effects of treatment? @ -No Exacerbation, Progression, or Severe Exacerbation? @ -No Poses a threat to life or bodily function? How? (Chest pain, USA, LA, pneumonia, PE, COPD, DKA, ARF, appy, cholecystitis, CVA, Diverticulitis, Homicidal, Suicidal, threat to staff... and all critical care pts) @ -No (Micki Montgomery) - Lab Data Lab Results 12/05/24 12/05/24 12/05/24 Range/Units 23:43 23:43 23:48 WBC 16.1 H (3.8-10.6) k/uL RBC 4.62 (3.80-5.40) m/uL Hgb 11.9 (11.4-16.0) gm/dL Hct 38.3 (34.0-46.0) % MCV 82.8 (80.0-100.0) fL MCH 25.8 (25.0-35.0) pg MCHC 31.2 (31.0-37.0) g/dL RDW 14.6 (11.5-15.5) % Plt Count 289 (150-450) k/uL MPV 7.6 Neutrophils % 72 % Lymphocytes % 18 % Monocytes % 5 % Eosinophils % 4 % Basophils % 0 % Neutrophils # 11.6 H (1.3-7.7) k/uL Lymphocytes # 2.8 (1.0-4.8) k/uL Monocytes # 0.8 (0-1.0) k/uL Eosinophils # 0.6 (0-0.7) k/uL Basophils # 0.0 (0-0.2) k/uL Sodium 136 L (137-145) mmol/L Potassium 4.3 (3.5-5.1) mmol/L Chloride 102 (98-107) mmol/L Carbon Dioxide 24 (22-30) mmol/L Anion Gap 10 mmol/L BUN 21 H (7-17) mg/dL Creatinine 0.65 (0.52-1.04) mg/dL Est GFR (CKD-EPI)AfAm >90 (>60 ml/min/1.73 sqM) Est GFR (CKD-EPI)NonAf >90 (>60 ml/min/1.73 sqM) Glucose 85 (74-99) mg/dL Plasma Lactic Acid Saleem (0.7-2.0) mmol/L Calcium 8.8 (8.4-10.2) mg/dL Total Bilirubin 0.3 (0.2-1.3) mg/dL AST 18 (14-36) U/L ALT 16 (4-34) U/L Alkaline Phosphatase 66 (38-126) U/L Total Protein 7.3 (6.3-8.2) g/dL Albumin 3.9 (3.5-5.0) g/dL Urine Color Light Yellow Urine Appearance Clear (Clear) Urine pH 5.5 (5.0-8.0) Ur Specific [place] 1.029 (1.001-1.035) Urine Protein Negative (Negative) Urine Glucose (UA) Negative (Negative) Urine Ketones Negative (Negative) Urine Blood Negative (Negative) Urine Nitrite Negative (Negative) Urine Bilirubin Negative (Negative) Urine Urobilinogen <2.0 (<2.0) mg/dL Ur Leukocyte Esterase Negative (Negative) 12/05/24 Range/Units 23:54 WBC (3.8-10.6) k/uL RBC (3.80-5.40) m/uL Hgb (11.4-16.0) gm/dL Hct (34.0-46.0) % MCV (80.0-100.0) fL MCH (25.0-35.0) pg MCHC (31.0-37.0) g/dL RDW (11.5-15.5) % Plt Count (150-450) k/uL MPV Neutrophils % % Lymphocytes % % Monocytes % % Eosinophils % % Basophils % % Neutrophils # (1.3-7.7) k/uL Lymphocytes # (1.0-4.8) k/uL Monocytes # (0-1.0) k/uL Eosinophils # (0-0.7) k/uL Basophils # (0-0.2) k/uL Sodium (137-145) mmol/L Potassium (3.5-5.1) mmol/L Chloride (98-107) mmol/L Carbon Dioxide (22-30) mmol/L Anion Gap mmol/L BUN (7-17) mg/dL Creatinine (0.52-1.04) mg/dL Est GFR (CKD-EPI)AfAm (>60 ml/min/1.73 sqM) Est GFR (CKD-EPI)NonAf (>60 ml/min/1.73 sqM) Glucose (74-99) mg/dL Plasma Lactic Acid Sale[place] 1.2 (0.7-2.0) mmol/L Calcium (8.4-10.2) mg/dL Total Bilirubin (0.2-1.3) mg/dL AST (14-36) U/L ALT (4-34) U/L Alkaline Phosphatase (38-126) U/L Total Protein (6.3-8.2) g/dL Albumin (3.5-5.0) g/dL Urine Color Urine Appearance (Clear) Urine pH (5.0-8.0) Ur Specific [place] (1.001-1.035) Urine Protein (Negative) Urine Glucose (UA) (Negative) Urine Ketones (Negative) Urine Blood (Negative) Urine Nitrite (Negative) Urine Bilirubin (Negative) Urine Urobilinogen (<2.0) mg/dL Ur Leukocyte Esterase (Negative) Disposition <Lu Vasquez - Last Filed: 12/05/24 22:28> Is patient prescribed a controlled substance at d/c from ED?: No Time of Disposition: 00:47 <Micki Montgomery - Last Filed: 12/06/24 04:10> Clinical Impression: Ovarian cyst Disposition: HOME SELF-CARE Condition: Good Instructions (If sedation given, give patient instructions): Ovarian Cyst (ED) Additional Instructions: Please return to the Emergency Department if symptoms worsen or any other concerns. Referrals: Henry Lowe MD [Primary Care Provider] - 1-2 days
--- NOTE | 2024-12-05 23:37 | US ---
EXAMINATION TYPE: US pelvic complete DATE OF EXAM: 12/05/2024 COMPARISON: US(12/03/2024) CLINICAL INDICATION: Female, 44 years old with history of left abd pain, hx left ovarian cyst; Us don e 2 days ago TECHNIQUE: Transabdominal (TA). Transabdominal grayscale sonographic images of the pelvis were acquired. Transvaginal sonographic im ages were medically necessary to better assess the following anatomy: Doppler imaging: Color Doppler Images were obtained. Spectral doppler images were obtained. FINDINGS: Pt is on pelvis rest for her hysterectomy 1 month ago today, Best TA images obtained EXAM MEASUREMENTS: Uterus: Surgically absent Endometrial Stripe: Surgically absent Right Ovary: 5.0x3.7x4.8 cm Left Ovary: 5.6x6.0x5.5 cm slightly limited exam due to overlying bowel & pt body habitus, Pt is on pelvis rest for her hysterectomy 1 month ago today, Best TA images obtained 1. Uterus: Surgically absent 2. Endometrium: Surgically absent 3. Right Ovary: wnl as best seen, slightly obscured by bowel 4. Left Ovary: Large cystic area again seen from prior US measurin.6x5.1x4.7cm Prior US measurement: 5.2x3.5x4.2cm Spectral, color and waveform doppler imaging shows good arterial and venous flow within the ovaries ; there is no evidence for ovarian torsion. 5. Bilateral Adnexa: wnl 6. Posterior cul-de-sac: wnl The uterus and endometrium are surgical absent. The visualized portion of the right ovary is unremark able. This is slightly obscured by overlying bowel. A large cystic area again seen within the left ov sangeeta and is grossly similar in size. This is anechoic without internal color flow. No mural nodularity or septations identified. No evidence for ovarian torsion. No free fluid. IMPRESSION: 1. Postsurgical changes from hysterectomy without evidence for ovarian torsion. 2. Grossly stable left ovarian simple appearing cyst measuring up to 5.1 cm. (ORAD 2). Consider 12 mo nth follow-up pelvic ultrasound. [facility], , 12/05/2024 11:34 PM
[2024-12-05 23:50] LABS: Basophils % (A) 0 %; Eosinophils # (A) 0.6 k/uL (0-0.7); Eosinophils % (A) 4 %; HCT 38.3 % (34.0-46.0); HGB 11.9 gm/dL (11.4-16.0); Lymphocytes # (A) 2.8 k/uL (1.0-4.8); Lymphocytes % (A) 18 %; MCH 25.8 pg (25.0-35.0); MCHC 31.2 g/dL (31.0-37.0); MCV 82.8 fL (80.0-100.0); Mean Platelet Volume 7.6; Monocytes # (A) 0.8 k/uL (0-1.0); Monocytes % (A) 5 %; Neutrophils # (A) 11.6 k/uL (1.3-7.7); Neutrophils % (A) 72 %; Platelet Count 289 k/uL (150-450); RBC 4.62 m/uL (3.80-5.40); RDW 14.6 % (11.5-15.5); WBC 16.1 k/uL (3.8-10.6)
[2024-12-05 23:56] LABS: Appearance,Urine Clear (Clear); Bilirubin,Urine Negative (Negative); Blood,Urine Negative (Negative); Color,Urine Light Yellow; Glucose,Urine (UA) Negative (Negative); Ketones,Urine Negative (Negative); Leukocyte Esterase,Urine Negative (Negative); Nitrite,Urine Negative (Negative); PH, Urine 5.5 (5.0-8.0); Protein,Urine Negative (Negative); Specific Gravity,Urine 1.029 (1.001-1.035); Urobilinogen,Urine <2.0 mg/dL (<2.0)
[2024-12-06 00:03] LABS: ALT 16 U/L (4-34); AST 18 U/L (14-36); African American GFR (CKD) >90 (>60 ml/min/1.73 sqM); Albumin 3.9 g/dL (3.5-5.0); Alkaline Phosphatase 66 U/L (38-126); Anion Gap 10 mmol/L; Blood Urea Nitrogen 21 mg/dL (7-17); Calcium 8.8 mg/dL (8.4-10.2); Carbon Dioxide 24 mmol/L (22-30); Chloride 102 mmol/L (98-107); Glucose 85 mg/dL (74-99); Non-African American GFR(CKD) >90 (>60 ml/min/1.73 sqM); Potassium 4.3 mmol/L (3.5-5.1); Sodium 136 mmol/L (137-145); Total Bilirubin 0.3 mg/dL (0.2-1.3); Total Protein 7.3 g/dL (6.3-8.2)
[2024-12-06] MEDS: HYDROmorphone 0.5 MG/0.5 ML SYRINGE IVP STA (00:34)
[2024-12-06] MEDS: ACET/COD 300 MG/30 MG STARTER PACK 6 TAB BTL PO STA (01:10)
[2024-12-06 01:14] VITALS: BP 126/80; PULSE 78; RESP 18; TEMP 98.1
== END 2024-12-06 01:14 | disposition home or self-care (01) ==
LOC: EC 21:12
DX: N83.202 Unspecified ovarian cyst, left side (principal)
CPT/HCPCS: 36415; 76856; 80053; 81003; 83605; 85025; 93975; 96374; 99284

== ENCOUNTER 2025-03-09 14:46 | Observation (INO) | payer MEDICARE, OTHER ==
[2025-03-09 15:51] LABS: Basophils # (A) 0.04 10*3/uL (0.00-0.10); Basophils % (A) 0.3 %; Eosinophils # (A) 0.39 10*3/uL (0.04-0.35); Eosinophils % (A) 3.3 %; HCT 37.4 % (37.2-46.3); HGB 12.5 g/dL (12.0-15.0); Lymphocytes # (A) 2.04 10*3/uL (0.90-5.00); Lymphocytes % (A) 17.3 %; MCH 27.1 pg (27.0-32.0); MCHC 33.4 g/dL (32.0-37.0); Mean Platelet Volume 10.4 fL (9.5-12.2); Monocytes # (A) 0.65 10*3/uL (0.20-1.00); Monocytes % (A) 5.5 %; Neutrophils # (A) 8.58 10*3/uL (1.80-7.70); Platelet Count 337 10*3/uL (140-440); RBC 4.62 10*6/uL (4.10-5.20); RDW 14.6 % (11.5-14.5); WBC 11.77 10*3/uL (4.50-10.00)
[2025-03-09] MEDS: SODIUM CHLORIDE 0.9% 1,000 ML IV STA (15:54)
[2025-03-09] MEDS: HYDROmorphone 1 MG/ML 1 ML SYRINGE IVP STA ×2 (15:54→17:25)
[2025-03-09 16:04] LABS: INR 0.9 (<1.2); Partial Thromboplastin Time 24.9 sec (22.0-30.0); Prothrombin Time 10.3 sec (10.0-12.5)
--- NOTE | 2025-03-09 16:04 | XR ---
EXAMINATION TYPE: XR chest 2V DATE OF EXAM: 03/09/2025 3:53 PM COMPARISON: Chest radiographs from 02/27/2025 CLINICAL INDICATION: Female, 44 years old with history of Chest Pain; TECHNIQUE: XR chest 2V Frontal and lateral views of the chest. FINDINGS: Lungs/Pleura: There is no evidence of pleural effusion, focal consolidation, or pneumothorax. Pulmonary vascularity: Unremarkable. Heart/mediastinum: Cardiomediastinal silhouette is unremarkable. Musculoskeletal: No acute osseous pathology. Other findings: None IMPRESSION: No acute cardiopulmonary disease/process. [facility], , 03/09/2025 4:01 PM
[2025-03-09 16:05] LABS: ALT 16 U/L (4-34); AST 17 U/L (14-36); African American GFR (CKD) >90 (>60 ml/min/1.73 sqM); Alkaline Phosphatase 72 U/L (38-126); Anion Gap 9 mmol/L; Blood Urea Nitrogen 12 mg/dL (7-17); Calcium 9.6 mg/dL (8.4-10.2); Carbon Dioxide 29 mmol/L (22-30); Chloride 99 mmol/L (98-107); Glucose 99 mg/dL (74-99); Lipase 75 U/L (23-300); Magnesium 1.7 mg/dL (1.6-2.3); Non-African American GFR(CKD) >90 (>60 ml/min/1.73 sqM); Potassium 4.5 mmol/L (3.5-5.1); Sodium 137 mmol/L (137-145); Total Bilirubin 0.3 mg/dL (0.2-1.3); Total Protein 7.1 g/dL (6.3-8.2)
--- NOTE | 2025-03-09 16:07 | ED ---
General Adult HPI - General Chief complaint: Chest Pain Stated complaint: chest pain, dizziness Time Seen by Provider: 03/09/25 15:15 Source: patient, RN notes reviewed, old records reviewed Mode of arrival: ambulatory Limitations: no limitations - History of Present Illness Initial comments: Patient is a 44-year-old female presents emergency department complaining of chest wall pain. Started this morning after she woke up. Has been ongoing all day today. Has a history of asthma, multiple TIAs, hypertension, seizure disorder, thyroid disorder. Not on any blood thinners. No cardiac history. States that the chest pain is over the anterior aspect of her chest and is worse with movements of her thorax or arms. Patient states she is also having some pain radiating into her foot. - Related Data Home Medications Medication Instructions Recorded Confirmed HYDROcodone/APAP 10-325MG [[place] 1 tab PO TID 10/30/24 03/09/25 10-325] Ipratropium-Albuterol Nebulize 3 ml INHALATION RT-QID PRN 02/27/25 03/09/25 [Duoneb 0.5 mg-3 mg/3 ml Soln] Allergies Allergy/AdvReac Type Severity Reaction Status Date / Time Iodinated Contrast Media Allergy Rash/Hives Verified 03/09/25 19:00 [Iodinated Contrast Media - IV Dye] iodine Allergy Rash/Hives Verified 03/09/25 19:00 Iodine and Iodide Containing Allergy Rash/Hives Verified 03/09/25 19:00 Produc ketorolac [From Toradol] Allergy Rash/Hives Verified 03/09/25 19:00 bupropion HCl AdvReac Unknown Homicidal Verified 03/09/25 19:00 [From Wellbutrin] Ideation aspirin AdvReac Nausea & Verified 03/09/25 19:00 Vomiting morphine AdvReac Chest Pain Verified 03/09/25 19:00 propoxyphene napsylate AdvReac Nausea & Verified 03/09/25 19:00 [From Darvocet-N] Vomiting steroids Allergy Rash/Hives Uncoded 03/09/25 14:50 Review of Systems ROS Statement: Those systems with pertinent positive or pertinent negative responses have been documented in the HPI. Review of Systems: CONST: Denies fever EYES: Denies blurry vision ENT: Denies nasal congestion C/V: Endorses chest wall pain RESP: Denies shortness of breath GI: Denies abdominal pain : Denies dysuria SKIN: Denies rash. MSK: Denies joint pain. NEURO: Denies headache ROS Other: All systems not noted in ROS Statement are negative. Past Medical History Past Medical History: Asthma, CVA/TIA, Hypertension, Seizure Disorder, Thyroid Disorder Additional Past Medical History / Comment(s): 11/2017 TIA or CVA (pt unsure) with resolved L sided weakness/aphasia but states still has short term memory loss, last seizure in 2017, frequent kidney infections, kidney stones she passed on her own, chronic cervical and low back pain, past fractured coccyx, gestational diabetes. ovarian cyst History of Any Multi-Drug Resistant Organisms: MRSA Date of last positivie culture/infection: 1999,2013, 2016 MDRO Source:: right leg Past Surgical History: Appendectomy, Section, Cholecystectomy, Tonsillectomy, Tubal Ligation Additional Past Surgical History / Comment(s): Multiple ear surgeries (x15 left ear & 13 right ear) ended up with eardrum replacements, x2 Past Anesthesia/Blood Transfusion Reactions: No Reported Reaction Additional Past Anesthesia/Blood Transfusion Reaction / Comment(s): PT STATES DIFFICULTY WAKING UP. PTS FATHER ALSO HAS DIFFICULTY WAKING UP. Past Psychological History: ADD/ADHD, Anxiety Smoking Status: Never smoker Past Alcohol Use History: None Reported Past Drug Use History: None Reported - Past Family History Mother Family Medical History: Cancer Additional Family Medical History / Comment(s): KIDNEY CANCER- in 2012 at the age of 68yrs. Father Family Medical History: CVA/TIA, Myocardial Infarction ([place]) Additional Family Medical History / Comment(s): Father had 8 CVAs and 2 MIs. His first VT was at age 69yrs and 2nd VT was at age 71yrs. He has a pacemaker. He is dyslexic. General Exam - General Exam Comments Initial Comments: General: Appears in no acute distress. HEAD: Normal with no signs of head trauma. EYES: PERRLA, EOMI, conjunctiva normal, no discharge. ENT: Hearing grossly intact, normal oropharynx. RESPIRATORY: Clear breath sounds bilaterally. No wheezes, rales, or rhonchi. C/V: Regular rate and rhythm. S1 and S2 auscultated, no edema, peripheral pulses 2+ and intact throughout. Reproducible anterior sternal chest wall pain. Reproducible on palpation as well as with movement. ABD: Abd is soft, nontender, nondistended EXT: Normal range of motion, no obvious deformity SKIN: No rashes or lesions observed on exposed skin. NEURO: Alert and oriented x 4. Limitations: no limitations Course Vital Signs 03/09/25 03/09/25 03/09/25 14:47 15:57 16:59 Temperature 97.7 F Pulse Rate 67 75 77 Respiratory 22 16 18 Rate Blood Pressure 161/85 139/77 140/69 O2 Sat by Pulse 97 99 99 Oximetry 03/09/25 03/09/25 18:44 19:17 Temperature 97.9 F Pulse Rate 87 67 Respiratory 16 18 Rate Blood Pressure 148/83 121/63 O2 Sat by Pulse 98 98 Oximetry Medical Decision Making - Medical Decision Making Was pt. sent in by a medical professional or institution (, PA, COMPLIANCE NURSE, urgent care, hospital, or intermediate...) When possible be specific @ -No Did you speak to anyone other than the patient for history (EMS, parent, family, police, friend...)? What history was obtained from this source @ -No Did you review nursing and triage notes (agree or disagree)? Why? @ -I reviewed and agree with nursing and triage notes Were old charts reviewed (outside hosp., previous admission, EMS record, old EKG, old radiological studies, urgent care reports/EKG's, intermediate records)? Report findings @ -Compared today's EKG with EKG from February 27, 2025 with no significant acute change. Reviewed stress echo from October 2024 which was a negative dobutamine stress echo. Differential Diagnosis (chest pain, altered mental status, abdominal pain women, abdominal pain men, vaginal bleeding, weakness, fever, dyspnea, syncope, headache, dizziness, GI bleed, back pain, seizure, CVA, palpatations, mental health, musculoskeletal)? @ -Differential Chest Pain: Stable Angina, Unstable Angina, STEMI, NSTEMI Aortic Dissection, Pneumothorax, Musculoskeletal, Esophageal Spasm GERD, Cholecystitis, Pancreatitis, Zoster, this is not meant to be an all-inclusive list. EKG interpreted by me (3pts min.). @ -As above X-rays interpreted by me (1pt min.). @ -Chest x-ray reveals no obvious acute cardiopulmonary process. CT interpreted by me (1pt min.). @ -None done U/S interpreted by me (1pt. min.). @ -None done What testing was considered but not performed or refused? (CT, X-rays, U/S, labs)? Why? @ -None What meds were considered but not given or refused? Why? @ -None Did you discuss the management of the patient with other professionals (professionals i.e. Dr., PA, COMPLIANCE NURSE, lab, RT, psych nurse, social studies teacher, title lawyer, teacher, access control officer, case folder)? Give summary @ -No Was smoking cessation discussed for >3mins.? @ -No Was critical care preformed (if so, how long)? @ -No Were there social determinants of health that impacted care today? How? (Homelessness, low income, unemployed, alcoholism, drug addiction, transportation, low edu. Level, literacy, decrease access to med. care, correction, rehab)? @ -No Was there de-escalation of care discussed even if they declined (Discuss DNR or withdrawal of care, Hospice)? DNR status @ -No What co-morbidities impacted this encounter? (DM, HTN, Smoking, COPD, CAD, Cancer, CVA, ARF, Chemo, Hep., AIDS, mental health diagnosis, sleep apnea, morbid obesity)? @ -None Was patient admitted / discharged? Hospital course, mention meds given and route, prescriptions, significant lab abnormalities, going to OR and other pertinent info. @ -Patient presents emergency department reproducible chest wall pain. We will obtain cardiac workup. She was in agreement this plan. She will be administered IV fluids and Dilaudid for pain control. Patient was in agreement this plan. Vitals are within acceptable limits. EKG shows no signs of acute ischemia.Imaging negative for any obvious acute cardiopulmonary process. Laboratory studies remarkable for leukocytosis of 11 which is likely reactive. Troponin undetectable. On reevaluation, chest pain did not resolve. No response to nitro. Dilaudid did help some. Discussed with the patient, and patient will be admitted to observation for chest pain. Cardiology consulted. Troponins will be trended. She was in agreement this plan. She was allergic to aspirin and therefore was not administered any aspirin. I spoke with the admitting provider, Dr. Lowe who accepted the admission. Undiagnosed new problem with uncertain prognosis? @ -No Drug Therapy requiring intensive monitoring for toxicity (Heparin, Nitro, Insulin, Cardizem)? @ -No Were any procedures done? @ -No Diagnosis/symptom? @ -Chest pain Acute, or Chronic, or Acute on Chronic? @ -Acute Uncomplicated (without systemic symptoms) or Complicated (systemic symptoms)? @ -complicated Side effects of treatment? @ -None Exacerbation, Progression, or Severe Exacerbation] @ -No Poses a threat to life or bodily function? @ -Potentially, yes - Lab Data Result diagrams: 03/09/25 15:33 03/09/25 15:33 Lab Results 03/09/25 03/09/25 03/09/25 Range/Units 15:33 15:33 15:33 WBC 11.77 H (4.50-10.00) 10*3/uL RBC 4.62 (4.10-5.20) 10*6/uL Hgb 12.5 (12.0-15.0) g/dL Hct 37.4 (37.2-46.3) % MCV 81.0 (80.0-97.0) fL MCH 27.1 (27.0-32.0) pg MCHC 33.4 (32.0-37.0) g/dL Plt Count 337 (140-440) 10*3/uL MPV 10.4 (9.5-12.2) fL Immature Gran % (Auto) 0.6 % Neutrophils % 73.0 % Lymphocytes % 17.3 % Monocytes % 5.5 % Eosinophils % 3.3 % Basophils % 0.3 % Immature Gran # 0.07 H (0.00-0.04) 10*3/uL Neutrophils # 8.58 H (1.80-7.70) 10*3/uL Lymphocytes # 2.04 (0.90-5.00) 10*3/uL Monocytes # 0.65 (0.20-1.00) 10*3/uL Eosinophils # 0.39 H (0.04-0.35) 10*3/uL Basophils # 0.04 (0.00-0.10) 10*3/uL PT 10.3 (10.0-12.5) sec INR 0.9 (<1.2) APTT 24.9 (22.0-30.0) sec Sodium 137 (137-145) mmol/L Potassium 4.5 (3.5-5.1) mmol/L Chloride 99 (98-107) mmol/L Carbon Dioxide 29 (22-30) mmol/L Anion Gap 9 mmol/L BUN 12 (7-17) mg/dL Creatinine 0.55 (0.52-1.04) mg/dL Est GFR (CKD-EPI)AfAm >90 (>60 ml/min/1.73 sqM) Est GFR (CKD-EPI)NonAf >90 (>60 ml/min/1.73 sqM) Glucose 99 (74-99) mg/dL Calcium 9.6 (8.4-10.2) mg/dL Magnesium 1.7 (1.6-2.3) mg/dL Total Bilirubin 0.3 (0.2-1.3) mg/dL AST 17 (14-36) U/L ALT 16 (4-34) U/L Alkaline Phosphatase 72 (38-126) U/L Troponin I (0.000-0.034) ng/mL Total Protein 7.1 (6.3-8.2) g/dL Albumin 4.0 (3.5-5.0) g/dL Lipase 75 (23-300) U/L // Range/Units 15:33 WBC (4.50-10.00) 10*3/uL RBC (4.10-5.20) 10*6/uL Hgb (12.0-15.0) g/dL Hct (37.2-46.3) % MCV (80.0-97.0) fL MCH (27.0-32.0) pg MCHC (32.0-37.0) g/dL Plt Count (140-440) 10*3/uL MPV (9.5-12.2) fL Immature Gran % (Auto) % Neutrophils % % Lymphocytes % % Monocytes % % Eosinophils % % Basophils % % Immature Gran # (0.00-0.04) 10*3/uL Neutrophils # (1.80-7.70) 10*3/uL Lymphocytes # (0.90-5.00) 10*3/uL Monocytes # (0.20-1.00) 10*3/uL Eosinophils # (0.04-0.35) 10*3/uL Basophils # (0.00-0.10) 10*3/uL PT (10.0-12.5) sec INR (<1.2) APTT (22.0-30.0) sec Sodium (137-145) mmol/L Potassium (3.5-5.1) mmol/L Chloride (98-107) mmol/L Carbon Dioxide (22-30) mmol/L Anion Gap mmol/L BUN (7-17) mg/dL Creatinine (0.52-1.04) mg/dL Est GFR (CKD-EPI)AfAm (>60 ml/min/1.73 sqM) Est GFR (CKD-EPI)NonAf (>60 ml/min/1.73 sqM) Glucose (74-99) mg/dL Calcium (8.4-10.2) mg/dL Magnesium (1.6-2.3) mg/dL Total Bilirubin (0.2-1.3) mg/dL AST (14-36) U/L ALT (4-34) U/L Alkaline Phosphatase (38-126) U/L Troponin I <0.012 (0.000-0.034) ng/mL Total Protein (6.3-8.2) g/dL Albumin (3.5-5.0) g/dL Lipase (23-300) U/L - EKG Data -: EKG Interpreted by Me EKG Comments: 12-lead Electrocardiogram Interpretation Note EKG was reviewed and interpreted by myself. 12-lead ECG performed at 1455 is interpreted by me as revealing normal sinus rhythm at a rate of 72 beats per minute. [place] is normal. IA interval is 166 ms, QRS durations 100 ms, QTc is 389 ms.. There were no ST or T wave abnormalities to suggest myocardial ischemia or injury. R wave progression across the precordium was satisfactory. By my interpretation this EKG is non-diagnostic for acute ischemia. Disposition Clinical Impression: Chest pain, Chest wall pain Disposition: ADMITTED IP TO THIS HOSP Condition: Stable Time of Disposition: 17:20
[2025-03-09] MEDS: NITROGLYCERIN SL TABS 0.4 MG TAB SUBLINGUAL STA (16:59)
[2025-03-09] MEDS ORDERED: NALOXONE 0.4 MG/ML 1 ML VIAL IV PRN (17:13)
[2025-03-09] MEDS ORDERED: IPRATROPIUM-ALBUTEROL 3 ML NEB INHALATION PRN (20:11)
[2025-03-09] MEDS: HYDROcodone/APAP 10-325MG 1 EACH TAB PO SCH (21:07)
--- NOTE | 2025-03-09 23:38 | HP ---
HISTORY AND PHYSICAL HISTORY OF PRESENT ILLNESS: A 44-year-old white female, history of COPD, asthma, degenerative disk disease, cervical lumbar spine, came in with severe chest pain, pleuritic in nature, admitted for heart, rule out NM. PHYSICAL EXAMINATION: CARDIOVASCULAR: S1, S2. LUNGS: Clear. Transmitted upper airway sounds. GI: Abdomen is soft. HEMATOLOGY: Negative Homans. PSYCH: Fair mood and affect. NEUROLOGIC: Alert and oriented x3. HOME MEDICINES: 1. DuoNeb q.i.d. 2. t.i.d. ALLERGIES: Iodine. REVIEW OF SYSTEMS: A 14-point review of systems otherwise negative. FAMILY HISTORY: Father with CVA, TIA, and myocardial infarction. Mother, cancer PHYSICAL EXAMINATION: CARDIOVASCULAR: S1, S2. LUNGS: Scattered wheeze x4. PSYCH: Fair mood and affect. NEUROLOGIC: Alert and oriented x3. MUSCULOSKELETAL: Tenderness to palpation over the cervical and thoracic spine, paraspinal muscles radiating around to the either lateral side of the chest. ASSESSMENT: Most likely thoracic radiculopathy, exacerbated by moving. Her sister taking care of her as a guardian. Cardiology will be consulted. Rule out myocardial infarction, most likely costochondritis. MMODL / IJN: [id number] /
[2025-03-09] MEDS: HYDROmorphone 1 MG/ML 1 ML SYRINGE IVP PRN (23:43)
[2025-03-10] MEDS: HYDROcodone/APAP 7.5-325MG 1 EACH TAB PO PRN (02:48)
[2025-03-10] MEDS: ENOXAPARIN 40 MG/0.4 ML SYRINGE SQ SCH (08:56)
[2025-03-10 09:25] LABS: Eosinophils % (A) 4.7 %; HCT 36.2 % (37.2-46.3); HGB 11.5 g/dL (12.0-15.0); MCH 26.1 pg (27.0-32.0); MCHC 31.8 g/dL (32.0-37.0); MCV 82.3 FL (80.0-97.0); Mean Platelet Volume 11.1 FL (9.5-12.2); Monocytes % (A) 6.2 %; NRBC Per 100 WBC 0 X 10*3/uL (0.00-0.01); Platelet Count 328 X 10*3/uL (140-440); RDW 14.6 % (11.5-14.5); WBC 10.12 X 10*3/uL (4.50-10.00)
[2025-03-10 09:26] LABS: Basophils # (A) 0.06 X 10*3/uL (0.00-0.10); Basophils % (A) 0.6 %; Eosinophils # (A) 0.48 X 10*3/uL (0.04-0.35); Lymphocytes # (A) 2.13 X 10*3/uL (0.90-5.00); Monocytes # (A) 0.63 X 10*3/uL (0.20-1.00); Neutrophils # (A) 6.77 X 10*3/uL (1.80-7.70)
[2025-03-10 09:41] LABS: ALT 15 U/L (8-44); AST 14 U/L (13-35); Albumin 3.6 g/dL (3.8-4.9); Albumin/Globulin Ratio 1.24 Ratio (1.60-3.17); Alkaline Phosphatase 76 U/L (41-126); BUN/Creat Ratio 17.67 Ratio (12.00-20.00); Blood Urea Nitrogen 10.6 mg/dL (9.0-27.0); Calcium 8.5 mg/dL (8.7-10.3); Carbon Dioxide 25.3 mmol/L (21.6-31.8); Chloride 102 mmol/L (96-109); Globulin 2.9 g/dL (1.6-3.3); Glucose 123 mg/dL (70-110); Sodium 138 mmol/L (135-145); Total Bilirubin <0.2 mg/dL (0.3-1.2); Total Protein 6.5 g/dL (6.2-8.2)
--- NOTE | 2025-03-10 11:15 | P.CRDCN ---
History of Present Illness Consult date: 03/10/25 Consult reason: chest pain History of present illness: This is a 44-year-old female with past medical history of asthma, possible history of TIA, seizure disorder, hypertension, hypothyroidism, learning disability. We have been asked to evaluate the patient for chest pain. Patient was seen by us in October for chest pain and at that time underwent a dobutamine stress test and echocardiogram which were all within normal limits. Patient complains of right upper anterior chest pain. She states she has had it for couple days. Yesterday she just could not deal with it anymore. It is sharp in nature. She has not tried to do anything to relieve the pain. She denies history of smoking, no drug use and no alcohol use. Blood pressure 1 32/83, heart rate 69, pulse ox 99% on room air. Patient is seen today in the emergency center waiting for a bed on the observation unit. -EKG: Sinus rhythm with no acute ST changes. -Chest x-ray: No acute process. -Laboratory studies: Troponin negative x 3. WBC 11.7, hemoglobin 12.5. D-dimer 0.52. CMP within normal limits. -Home cardiac medications: None. -Echocardiogram performed on 10/30/2024 revealed normal LV function. -Dobutamine stress echo performed 10/30/2024 revealed a negative dobutamine stress echo. Review Of Systems: At the time of my exam: CONSTITUTIONAL: Denies fever or chills. HEENT: Denies blurred vision, vision changes, or eye pain. Denies hemoptysis CARDIOVASCULAR: Reports chest pain. Denies orthopnea. Denies PND. Denies palpitations RESPIRATORY: Denies shortness of breath. GASTROINTESTINAL: Denies abdominal pain. Denies nausea or vomiting. HEMATOLOGIC: Denies bleeding disorders. GENITOURINARY: Denies any blood in urine. SKIN: Denies puritis. Denies rash. Physical examination: Gen: This is a 44-year-old female in no acute distress VS: reviewed HEENT: Head is atraumatic, normocephalic. Pupils equal, round. Sclerae is anicteric. NECK: Supple. No JVD. LUNGS: Clear to auscultation. No wheezes or rhonchi. No intercostal retractions. HEART: Regular rate and rhythm. No murmur. ABDOMEN: Soft No tenderness. EXTREMITIES: No pedal edema. No calf tenderness. NEUROLOGICAL: Patient is awake, alert and oriented x3. Assessment: Atypical chest pain, acute coronary syndrome ruled out. Chest pain is muscular skeletal in nature Hypertension Hypothyroidism Seizure disorder Morbid obesity with BMI of 45 Plan: No further cardiac workup at this time. Cardiology will sign off this case and follow on an as-needed basis. Please reconsult for any new concerns. Thank you kindly for this consultation. Nurse practitioner note has been reviewed, I agree with documented findings and plan of care. Patient was seen and examined. Past Medical History Past Medical History: Asthma, CVA/TIA, Hypertension, Seizure Disorder, Thyroid Disorder Additional Past Medical History / Comment(s): 11/2017 TIA or CVA (pt unsure) with resolved L sided weakness/aphasia but states still has short term memory loss, last seizure in 2016, frequent kidney infections, kidney stones she passed on her own, chronic cervical and low back pain, past fractured coccyx, gestational diabetes. ovarian cyst History of Any Multi-Drug Resistant Organisms: MRSA Date of last positivie culture/infection: 1999,2013, 2016 MDRO Source:: right leg Past Surgical History: Appendectomy, Section, Cholecystectomy, Tonsillectomy, Tubal Ligation Additional Past Surgical History / Comment(s): Multiple ear surgeries (x15 left ear & 13 right ear) ended up with eardrum replacements, x2 Past Anesthesia/Blood Transfusion Reactions: No Reported Reaction Additional Past Anesthesia/Blood Transfusion Reaction / Comment(s): PT STATES DIFFICULTY WAKING UP. PTS FATHER ALSO HAS DIFFICULTY WAKING UP. Past Psychological History: ADD/ADHD, Anxiety Smoking Status: Never smoker Past Alcohol Use History: None Reported Past Drug Use History: None Reported - Past Family History Mother Family Medical History: Cancer Additional Family Medical History / Comment(s): KIDNEY CANCER- in 2012 at the age of 68yrs. Father Family Medical History: CVA/TIA, Myocardial Infarction ([place]) Additional Family Medical History / Comment(s): Father had 8 CVAs and 2 MIs. His first NC was at age 69yrs and 2nd NC was at age 71yrs. He has a pacemaker. He is dyslexic. Medications and Allergies Home Medications Medication Instructions Recorded Confirmed Type HYDROcodone/APAP 10-325MG [[place] 1 tab PO TID 10/30/24 03/09/25 History 10-325] Ipratropium-Albuterol Nebulize 3 ml INHALATION RT-QID PRN 02/27/25 03/09/25 History [Duoneb 0.5 mg-3 mg/3 ml Soln] Allergies Allergy/AdvReac Type Severity Reaction Status Date / Time Iodinated Contrast Media Allergy Rash/Hives Verified 03/09/25 19:00 [Iodinated Contrast Media - IV Dye] iodine Allergy Rash/Hives Verified 03/09/25 19:00 Iodine and Iodide Containing Allergy Rash/Hives Verified 03/09/25 19:00 Produc ketorolac [From Toradol] Allergy Rash/Hives Verified 03/09/25 19:00 bupropion HCl AdvReac Unknown Homicidal Verified 03/09/25 19:00 [From Wellbutrin] Ideation aspirin AdvReac Nausea & Verified 03/09/25 19:00 Vomiting morphine AdvReac Chest Pain Verified 03/09/25 19:00 propoxyphene napsylate AdvReac Nausea & Verified 03/09/25 19:00 [From Darvocet-N] Vomiting steroids Allergy Rash/Hives Uncoded 03/09/25 14:50 Physical Exam Vitals: Vital Signs Temp Pulse Resp BP Pulse Ox 03/10/25 06:36 69 18 132/83 99 03/10/25 04:50 74 18 120/72 97 03/10/25 02:00 81 106/65 03/10/25 01:22 78 16 125/63 98 03/10/25 00:00 65 129/74 96 03/09/25 23:42 73 18 123/70 98 03/09/25 21:00 72 135/78 98 03/09/25 20:00 65 106/72 99 03/09/25 19:17 97.9 F 67 18 121/63 98 03/09/25 18:44 87 16 148/83 98 03/09/25 16:59 77 18 140/69 99 03/09/25 15:57 75 16 139/77 99 03/09/25 14:47 97.7 F 67 22 161/85 97 Results 03/10/25 06:18 03/10/25 06:18 Cardiac Enzymes 03/09/25 03/09/25 03/09/25 Range/Units 15:33 15:33 18:09 AST 17 (14-36) U/L Troponin I <0.012 <0.012 (0.000-0.034) ng/mL 03/09/25 Range/Units 20:27 AST (14-36) U/L Troponin I <0.012 (0.000-0.034) ng/mL Coagulation 03/09/25 Range/Units 15:33 PT 10.3 (10.0-12.5) sec APTT 24.9 (22.0-30.0) sec CBC 03/09/25 Range/Units 15:33 WBC 11.77 H (4.50-10.00) 10*3/uL RBC 4.62 (4.10-5.20) 10*6/uL Hgb 12.5 (12.0-15.0) g/dL Hct 37.4 (37.2-46.3) % Plt Count 337 (140-440) 10*3/uL Comprehensive Metabolic Panel 03/09/25 Range/Units 15:33 Sodium 137 (137-145) mmol/L Potassium 4.5 (3.5-5.1) mmol/L Chloride 99 (98-107) mmol/L Carbon Dioxide 29 (22-30) mmol/L BUN 12 (7-17) mg/dL Creatinine 0.55 (0.52-1.04) mg/dL Glucose 99 (74-99) mg/dL Calcium 9.6 (8.4-10.2) mg/dL AST 17 (14-36) U/L ALT 16 (4-34) U/L Alkaline Phosphatase 72 (38-126) U/L Total Protein 7.1 (6.3-8.2) g/dL Albumin 4.0 (3.5-5.0) g/dL Current Medications Generic Name Dose Route Start Last Admin Trade Name Freq PRN Reason Stop Dose Admin Hydrocodone Bitart/Acetaminophen 1 each 03/09/25 22:00 03/10/25 08:53 Hydrocodone/Apap 10-325mg 1 Each Tab PO 1 each TID LUIS FERNANDO Administration Hydrocodone Bitart/Acetaminophen 1 each 03/10/25 02:42 03/10/25 02:48 Hydrocodone/Apap 7.5-325mg 1 Each Tab PO 1 each Q4HR PRN Administration Pain Albuterol/Ipratropium 3 ml 03/09/25 20:11 Ipratropium-Albuterol 3 Ml Neb INHALATION RT-QID PRN Shortness Of Breath Enoxaparin Sodium 40 mg 03/10/25 09:00 03/10/25 08:56 Enoxaparin 40 Mg/0.4 Ml Syringe SQ Not Given DAILY LUIS FERNANDO Hydromorphone HCl 1 mg 03/09/25 17:13 03/10/25 06:33 Hydromorphone 1 Mg/Ml 1 Ml Syringe IVP 1 mg Q4HR PRN Administration Pain Naloxone HCl 0.2 mg 03/09/25 17:13 Naloxone 0.4 Mg/Ml 1 Ml Vial IV Q2M PRN Opioid Reversal 03/09/25 15:33 03/09/25 15:33
[2025-03-10] MEDS ORDERED: ONDANSETRON 4 MG/2 ML VIAL IVP PRN (11:47)
[2025-03-10 13:13] VITALS: RESP 16
[2025-03-10 16:29] VITALS: BP 136/82; PULSE 70; TEMP 97.8
== END 2025-03-10 17:11 | disposition home or self-care (01) ==
LOC: EC 14:46 → 6NMEDSUR 17:13
PROVIDERS: ADMIT Family Medicine; ATTEND Family Medicine
DX: R07.89 Other chest pain (principal); I10 Essential (primary) hypertension; F41.9 Anxiety disorder, unspecified; E03.9 Hypothyroidism, unspecified; G40.909 Epilepsy, unspecified, not intractable, without status epilepticus; J44.89 Other specified chronic obstructive pulmonary disease; E66.01 Morbid (severe) obesity due to excess calories; Z68.42 Body mass index [BMI] 45.0-49.9, adult; Z86.73 Personal history of transient ischemic attack (TIA), and cerebral infarction without residual deficits; Z88.5 Allergy status to narcotic agent; Z88.6 Allergy status to analgesic agent
CPT/HCPCS: 96376 ×2; 96374; 99285; 36415; 93005; 85379; 80053 ×2; 83690; 83735; 84484; 85025 ×2; 85610; 85730; 71046; G0378 ×2; J1171 ×2

== ENCOUNTER 2025-03-15 14:57 | Emergency (ER) | payer MEDICARE ==
[2025-03-15 15:07] VITALS: TEMP 98.3
--- NOTE | 2025-03-15 16:11 | ED ---
Chest Pain HPI - General Chief Complaint: Chest Pain Stated Complaint: Chest pain,Dizziness Time Seen by Provider: 03/15/25 15:47 Source: patient Mode of arrival: ambulatory Limitations: no limitations - History of Present Illness Initial Comments: This patient is a 44-year-old woman who presents with complaint of right sided chest pain. She describes a sharp pain, it is worse with taking deep breath sometimes with certain movements. She has not noted relieving factors. She had been admitted in the hospital and had seen the pot lining supervisor for this same pain approximately 5 days ago. She states that the pain has continued despite the fact that she is using her home medication Montague 10 mg. No associated symptoms. MD Complaint: chest pain -: hour(s) Onset: during rest Pain Location: right chest Pain Radiation: none Severity: severe Quality: sharp Consistency: constant Improves With: nothing Worsens With: inspiration, movement Treatments Prior to Arrival: none - Related Data Home Medications Medication Instructions Recorded Confirmed HYDROcodone/APAP 10-325MG [Montague 1 tab PO TID 10/30/24 03/09/25 10-325] Ipratropium-Albuterol Nebulize 3 ml INHALATION RT-QID PRN 02/27/25 03/09/25 [Duoneb 0.5 mg-3 mg/3 ml Soln] Allergies Allergy/AdvReac Type Severity Reaction Status Date / Time Iodinated Contrast Media Allergy Rash/Hives Verified 03/09/25 19:00 [Iodinated Contrast Media - IV Dye] iodine Allergy Rash/Hives Verified 03/09/25 19:00 Iodine and Iodide Containing Allergy Rash/Hives Verified 03/09/25 19:00 Produc ketorolac [From Toradol] Allergy Rash/Hives Verified 03/09/25 19:00 bupropion HCl AdvReac Unknown Homicidal Verified 03/09/25 19:00 [From Wellbutrin] Ideation aspirin AdvReac Nausea & Verified 03/09/25 19:00 Vomiting morphine AdvReac Chest Pain Verified 03/09/25 19:00 propoxyphene napsylate AdvReac Nausea & Verified 03/09/25 19:00 [From Darvocet-N] Vomiting steroids Allergy Rash/Hives Uncoded 03/09/25 14:50 Review of Systems ROS Statement: Those systems with pertinent positive or pertinent negative responses have been documented in the HPI. ROS Other: All systems not noted in ROS Statement are negative. Constitutional: Denies: fever, chills Respiratory: Denies: cough, dyspnea Cardiovascular: Reports: chest pain. Denies: palpitations, orthopnea, edema, syncope Gastrointestinal: Denies: abdominal pain, nausea, vomiting Genitourinary: Denies: dysuria, hematuria Musculoskeletal: Denies: back pain Skin: Denies: rash Neurological: Denies: headache, weakness EKG Findings - EKG Results: EKG: interpreted by JIMY Past Medical History Past Medical History: Asthma, CVA/TIA, Hypertension, Seizure Disorder, Thyroid Disorder Additional Past Medical History / Comment(s): 11/2017 TIA or CVA (pt unsure) with resolved L sided weakness/aphasia but states still has short term memory loss, last seizure in 2016, frequent kidney infections, kidney stones she passed on her own, chronic cervical and low back pain, past fractured coccyx, gestational diabetes. ovarian cyst History of Any Multi-Drug Resistant Organisms: MRSA Date of last positivie culture/infection: 1999,2013, 2016 MDRO Source:: right leg Past Surgical History: Appendectomy, Section, Cholecystectomy, Tonsillectomy, Tubal Ligation Additional Past Surgical History / Comment(s): Multiple ear surgeries (x15 left ear & 13 right ear) ended up with eardrum replacements, x2 Past Anesthesia/Blood Transfusion Reactions: No Reported Reaction Additional Past Anesthesia/Blood Transfusion Reaction / Comment(s): PT STATES DIFFICULTY WAKING UP. PTS FATHER ALSO HAS DIFFICULTY WAKING UP. Past Psychological History: ADD/ADHD, Anxiety Smoking Status: Never smoker Past Alcohol Use History: None Reported Past Drug Use History: None Reported - Past Family History Mother Family Medical History: Cancer Additional Family Medical History / Comment(s): KIDNEY CANCER- in 2012 at the age of 68yrs. Father Family Medical History: CVA/TIA, Myocardial Infarction (MN) Additional Family Medical History / Comment(s): Father had 8 CVAs and 2 MIs. His first MN was at age 69yrs and 2nd MN was at age 71yrs. He has a pacemaker. He is dyslexic. General Exam Limitations: no limitations General appearance: alert, in no apparent distress Head exam: Present: atraumatic, normocephalic Eye exam: Present: normal appearance. Absent: scleral icterus, conjunctival injection Neck exam: Present: normal inspection Respiratory exam: Present: normal lung sounds bilaterally, chest wall tenderness. Absent: respiratory distress, wheezes, rales, rhonchi, stridor, accessory muscle use Cardiovascular Exam: Present: regular rate, normal rhythm, normal heart sounds. Absent: systolic murmur, diastolic murmur, rubs, gallop GI/Abdominal exam: Present: soft. Absent: distended, tenderness, guarding, rebound, rigid, mass Extremities exam: Present: normal inspection, normal capillary refill. Absent: pedal edema, calf tenderness Back exam: Present: normal inspection. Absent: CVA tenderness (R), CVA tenderness (L) Neurological exam: Present: alert Skin exam: Present: warm, dry, intact, normal color. Absent: rash Course Vital Signs 03/15/25 03/15/25 15:02 21:21 Temperature 98.3 F Pulse Rate 73 70 Respiratory 20 18 Rate Blood Pressure 162/94 162/89 O2 Sat by Pulse 97 97 Oximetry Chest Pain MDM - MDM The patient had two-view chest x-ray that I interpreted as negative for acute infiltrate, pneumothorax, congestive heart failure. The patient had CT scan of the chest that I interpreted as negative for acute infiltrate, negative for pulmonary embolism or pneumothorax Was pt. sent in by a medical professional or institution (, PA, DIESEL TRUCK TECHNICIAN, urgent care, hospital, or [place] health care facility...) When possible be specific @ -[No] Did you speak to anyone other than the patient for history (EMS, parent, family, police, friend...)? What history was obtained from this source @ -[No] Did you review nursing and triage notes (agree or disagree)? Why? @ -[I reviewed and agree with nursing and triage notes] Were old charts reviewed (outside hosp., previous admission, EMS record, old EKG, old radiological studies, urgent care reports/EKG's, [place] health care facility records)? Report findings @ -[No old charts were reviewed] Differential Diagnosis (chest pain, altered mental status, abdominal pain women, abdominal pain men, vaginal bleeding, weakness, fever, dyspnea, syncope, headache, dizziness, GI bleed, back pain, seizure, CVA, palpatations, mental health, musculoskeletal)? @ -[Differential Chest Pain: Stable Angina, Unstable Angina, STEMI, NSTEMI Aortic Dissection, Pneumothorax, Musculoskeletal, Esophageal Spasm GERD, Cholecystitis, Pancreatitis, Zoster, this is not meant to be an all-inclusive list. EKG interpreted by me (3pts min.). @ -[As above] X-rays interpreted by me (1pt min.). @ -[I interpreted as above CT interpreted by me (1pt min.). @ -[I interpreted as above U/S interpreted by me (1pt. min.). @ -[None done] What testing was considered but not performed or refused? (CT, X-rays, U/S, labs)? Why? @ -[None] What meds were considered but not given or refused? Why? @ -[None] Did you discuss the management of the patient with other professionals (professionals i.e. , PA, DIESEL TRUCK TECHNICIAN, lab, RT, psych nurse, social services manager, commercial carpenter, teacher, training systems officer, counseling case manager)? Give summary @ -[No] Was smoking cessation discussed for >3mins.? @ -[No] Was critical care preformed (if so, how long)? @ -[No] Were there social determinants of health that impacted care today? How? (Homel essness, low income, unemployed, alcoholism, drug addiction, transportation, low edu. Level, literacy, decrease access to med. care, [facility], rehab)? @ -[No] Was there de-escalation of care discussed even if they declined (Discuss DNR or withdrawal of care, Hospice)? DNR status @ -[No] What co-morbidities impacted this encounter? (DM, HTN, Smoking, COPD, CAD, Cancer, CVA, ARF, Chemo, Hep., AIDS, mental health diagnosis, sleep apnea, morbid obesity)? @ -[None] Was patient admitted / discharged? Hospital course, mention meds given and route, prescriptions, significant lab abnormalities, going to OR and other pertinent info. @ -[Patient is 44-year-old woman here to have evaluation of chest pain. Her initial workup is negative. At this point patient stable to continue as outpatient. Discussed appropriate further care and follow-up as well as return parameters Undiagnosed new problem with uncertain prognosis? @ -[No] Drug Therapy requiring intensive monitoring for toxicity (Heparin, Nitro, Insulin, Cardizem)? @ -[No] Were any procedures done? @ -[No] Diagnosis/symptom? @ -[Acute chest pain Acute, or Chronic, or Acute on Chronic? @ -[Acute Uncomplicated (without systemic symptoms) or Complicated (systemic symptoms)? @ -[Uncomplicated Side effects of treatment? @ -[No] Exacerbation, Progression, or Severe Exacerbation? @ -[No] Poses a threat to life or bodily function? How? (Chest pain, [place], [place], pneumonia, PE, COPD, DKA, ARF, appy, cholecystitis, CVA, Diverticulitis, Homicidal, Suicidal, threat to staff... and all critical care pts) @ -[No] All treatments are based on ideal body weight as in ED triage Disposition Clinical Impression: Chest pain Disposition: HOME SELF-CARE Condition: Good Instructions (If sedation given, give patient instructions): Chest Pain (ED) Is patient prescribed a controlled substance at d/c from ED?: No Referrals: Henry Lowe MD [Primary Care Provider] - 1-2 days
--- NOTE | 2025-03-15 16:44 | XR ---
EXAMINATION TYPE: XR chest 2V DATE OF EXAM: 03/15/2025 4:35 PM COMPARISON: 03/09/2025 CLINICAL INDICATION: Female, 44 years old with history of Chest Pain, Chest pain TECHNIQUE: XR chest 2V views of the chest are obtained. FINDINGS: There is no focal air space opacity. No evidence for pneumothorax. No pleural effusion. The cardiac silhouette size is within normal limits. The osseous structures are grossly intact. IMPRESSION: 1. No acute cardiopulmonary process. [facility], , 03/15/2025 4:42 PM
[2025-03-15 17:00] LABS: Basophils # (A) 0.06 10*3/uL (0.00-0.10); Basophils % (A) 0.5 %; Eosinophils # (A) 0.44 10*3/uL (0.04-0.35); Eosinophils % (A) 3.6 %; HCT 40.5 % (37.2-46.3); HGB 13.5 g/dL (12.0-15.0); Lymphocytes # (A) 2.21 10*3/uL (0.90-5.00); Lymphocytes % (A) 18.2 %; MCHC 33.3 g/dL (32.0-37.0); Mean Platelet Volume 10.4 fL (9.5-12.2); Monocytes # (A) 0.68 10*3/uL (0.20-1.00); Monocytes % (A) 5.6 %; Neutrophils # (A) 8.68 10*3/uL (1.80-7.70); Neutrophils % (A) 71.7 %; Platelet Count 393 10*3/uL (140-440); RDW 14.3 % (11.5-14.5); WBC 12.12 10*3/uL (4.50-10.00)
[2025-03-15 17:26] LABS: ALT 18 U/L (4-34); African American GFR (CKD) >90 (>60 ml/min/1.73 sqM); Albumin 4.5 g/dL (3.5-5.0); Anion Gap 10 mmol/L; Blood Urea Nitrogen 15 mg/dL (7-17); Calcium 9.6 mg/dL (8.4-10.2); Carbon Dioxide 26 mmol/L (22-30); Chloride 102 mmol/L (98-107); Glucose 97 mg/dL (74-99); Non-African American GFR(CKD) >90 (>60 ml/min/1.73 sqM); Sodium 138 mmol/L (137-145); Total Bilirubin 0.5 mg/dL (0.2-1.3)
[2025-03-15 17:29] LABS: AST 24 U/L (14-36); Alkaline Phosphatase 73 U/L (38-126); Magnesium 1.9 mg/dL (1.6-2.3); Potassium 4.7 mmol/L (3.5-5.1)
[2025-03-15 18:05] LABS: INR 0.9 (<1.2); Partial Thromboplastin Time 24.9 sec (22.0-30.0); Prothrombin Time 10.1 sec (10.0-12.5)
[2025-03-15] MEDS: FAMOTIDINE 20 MG/2 ML VIAL IV STA (18:26)
[2025-03-15] MEDS: methylPREDNISolone SOD SUCCI 125 MG/2 ML VIAL IV STA (18:27)
[2025-03-15] MEDS: diphenhydrAMINE 50 MG/ML 1 ML VIAL IVP STA (18:27)
--- NOTE | 2025-03-15 19:20 | CT ---
EXAMINATION TYPE: CT chest angio for PE DATE OF EXAM: 03/15/2025 6:59 PM COMPARISON: None. CLINICAL INDICATION: Female, 44 years old with history of Right chest pain, chest pain, TECHNIQUE: CT of the chest is performed on a spiral scan at 2 mm thick sections. Study is performed with intravenous contrast timed for evaluation for pulmonary embolism. This will limit additional po rtions of the evaluation. 10mm MIP images reconstructed by the technologist are reviewed on the comp uter in the coronal and sagittal planes. Contrast used:100 mL of with IV Contrast, (none if empty) Oral contrast used: (none if empty) CT DLP: 538.9 mGycm, Automated exposure control for dose reduction was used. FINDINGS: No persistent filling defects are evident to suggest an acute pulmonary embolism. No mediastinal or hilar adenopathy enlarged by CT criteria is evident. The ascending aorta diameter at the level of the main pulmonary artery is 3.9 cm. The main pulmonary artery diameter at the bifurcation is 3.0 cm. Lung windows are clear. No significant coronary artery calcifications. Limited CT sections were through the upper abdomen. Upper abdomen appears unremarkable. IMPRESSION: 1. No acute pulmonary embolism. 2. No acute pulmonary process. [facility], , 03/15/2025 7:17 PM
[2025-03-15] MEDS: HYDROmorphone 1 MG/ML 1 ML SYRINGE IVP STA (19:55)
[2025-03-15 21:22] VITALS: BP 162/89; PULSE 70; RESP 18
== END 2025-03-15 21:29 | disposition home or self-care (01) ==
LOC: EC 14:57
DX: R07.89 Other chest pain (principal); Z88.5 Allergy status to narcotic agent; Z88.6 Allergy status to analgesic agent; Z88.8 Allergy status to other drugs, medicaments and biological substances; Z91.041 Radiographic dye allergy status
CPT/HCPCS: 99285 ×2; 96374 ×2; 96375 ×3; 99283; 36415; 93005; 85379; 80053; 83735; 84484; 85025; 85610; 85730; 71046; 71275; J1200; J1171; Q9967; J2919; J1308